=== PATIENT | female | born 1955 | race Caucasian/White ===

== ENCOUNTER 2018-01-07 10:24 | Outpatient (REF) | payer MEDICAID, SELFPAY ==
[2018-01-13 01:07] LABS: Codeine Negative ng/mL (Cutoff: 25); Dihydrocodeine Negative ng/mL (Cutoff: 25); Hydrocodone Negative ng/mL (Cutoff: 25); Hydromorphone 676 ng/mL (Cutoff: 25); Morphine >100000 ng/mL (Cutoff: 25); Naloxone Negative ng/mL (Cutoff: 25); Norhydrocodone Negative ng/mL (Cutoff: 25); Noroxycodone Negative ng/mL (Cutoff: 25); Noroxymorphone Negative ng/mL (Cutoff: 25); Opiates Interpretation Positive.
== END 2018-01-07 10:25 ==
LOC: NCHCN 10:24
PROVIDERS: PCP Family Medicine; Visit Provider Family Medicine
DX: M54.5 Low back pain (principal); G89.29 Other chronic pain
CPT/HCPCS: 80361

== ENCOUNTER 2018-01-09 00:58 | Outpatient (CLI) | payer MEDICAID, SELFPAY ==
[2018-01-09 08:10] LABS: Absolute Basophil Count 0.02 k/cumm (0.0-0.2); Absolute Eosinophil Count 0.09 k/cumm (0.0-0.7); Absolute Lymphocyte Count 1.86 k/cumm (1.2-3.4); Absolute Neutrophil Count 3.13 k/cumm (1.2-6.7); Basophils % 0.4; Eosinophils % 1.6; HCT 38.2 % (36.0-46.0); HGB 13.2 g/dL (12.0-15.5); Lymphocytes % 33.2; Mean Corp. HGB Concentration 34.6 g/dL (32.0-36.0); Mean Corpuscular Hemoglobin 31.7 pg (27.0-33.0); Mean Corpuscular Volume 91.6 fL (80-95); Mean Platelet Volume 10.5 fL (8.0-11.0); Monocytes % 8.9; Neutrophils % 55.9; Platelet Count 229 x1000/uL (130-400); RBC 4.17 m/cumm (4.00-5.20); RBC Distribution Width 12.3 % (11.7-14.6)
--- NOTE | 2018-01-09 08:12 | DI.REPORT_ITS ---
SYMPTOM/DIAGNOSIS: COMPENSATED CIRRHOSIS OF LIVER WITHOUT ASCITES, K74.60, ASSESS FOR HCC ABDOMEN ULTRASOUND: The aorta and vena cava are normal. Hyperechogenicity and mild coarse texture is noted in the liver. There is no evidence of a mass. The gallbladder is normal. There are no stones. There is no ductal dilatation. The head and body of the pancreas are unremarkable. The tail is not seen. The spleen is normal. The right kidney measures 8.8 by 4.4 by 4.8 cm and contains a 1.8 cm. cyst in the upper pole. The left kidney measures 7.9 by 3.8 by 4.5 cm. and is unremarkable. SUMMARY: Hyperechogenicity is noted in the liver which has acoustically coarse texture. There is no demonstrated mass. There is no evidence of gallbladder disease, stones or ductal dilatation.
[2018-01-09 08:16] LABS: Prothrombin Time 10.2 sec (9.3-10.8)
[2018-01-09 09:00] LABS: ALT 14 U/L (12-78); AST 18 U/L (15-37); Alkaline Phosphatase 103 U/L (46-116); Anion Gap 7.6 mmol/L (3-11); BUN 9 mg/dL (7-18); Bilirubin, Total 0.4 mg/dL (0.2-1.0); CO2 28.4 mmol/L (21.0-32.0); CREATININE 0.86 mg/dL (0.55-1.02); Calcium 9.3 mg/dL (8.5-10.1); Chloride 103 mmol/L (98-107); Glucose 109 mg/dL (70-100); Potassium 4.6 mmol/L (3.5-5.1); Sodium 139 mmol/L (136-145); Total Protein 7.8 g/dL (6.4-8.2)
== END 2018-01-09 00:59 ==
PROVIDERS: PCP Family Medicine; Visit Provider Nurse Practitioner Adult Health
DX: K74.60 Unspecified cirrhosis of liver (principal)
CPT/HCPCS: 36415; 80053; 76700; 85025; 85610

== ENCOUNTER 2018-01-25 01:41 | Outpatient (CLI) | payer MEDICAID, SELFPAY ==
[2018-01-25] MEDS: Omnipaque 350 MG/ML 50 ML BTL PO (08:14)
[2018-01-25] MEDS: Omnipaque 350 MG/ML 100 ML BTL IJ (09:28)
--- NOTE | 2018-01-25 09:40 | DI.RPTCT_ITS ---
SYMPTOM/DIAGNOSIS: EPIGASTRIC PAIN, R10.[address]: 01/25 CT examination of the abdomen and pelvis was performed with a bolus infusion of 100 cc Omnipaque 350 and ingestion of dilute barium. Images obtained through the lung bases were unremarkable. The patient reportedly has a history of cirrhosis and the liver has a subtly nodular appearance. No focal hepatic abnormality seen. Pancreas is unremarkable in appearance. Gallbladder and bile ducts are CT normal. Adrenals and kidneys are unremarkable in appearance with small bilateral renal cysts noted. Abdominal aorta is of normal diameter and no major vascular abnormalities seen. No significant abdominal wall hernia seen. No significant abdominal or pelvic adenopathy seen. Appendix is unremarkable. No evidence of diverticulitis or bowel obstruction. CONCLUSION: No evidence of acute intra-abdominal process.
== END 2018-01-25 01:42 ==
PROVIDERS: PCP Family Medicine; Visit Provider Surgery
DX: R10.13 Epigastric pain (principal); K74.60 Unspecified cirrhosis of liver
CPT/HCPCS: 74177; J3490; Q9967

== ENCOUNTER 2018-06-20 00:38 | Outpatient (CLI) | payer MEDICAID, SELFPAY ==
[2018-06-20 14:59] LABS: Mean Corp. HGB Concentration 34.2 g/dL (32.0-36.0); Mean Corpuscular Hemoglobin 31.9 pg (27.0-33.0); Mean Corpuscular Volume 93.1 fL (80-95); Mean Platelet Volume 9.5 fL (8.0-11.0); Platelet Count 291 x1000/uL (130-400); RBC 4.08 m/cumm (4.00-5.20); RBC Distribution Width 12.9 % (11.7-14.6); White Blood Cell Count 7.46 k/cumm (4.4-10.8)
--- NOTE | 2018-06-20 15:36 | DI.MAMMO_ITS ---
SYMPTOM/DIAGNOSIS: SCREENING, Z12.31 MAMMOGRAMS: Mammograms were interpreted according to the usual protocol including computer analysis with CAD system, tomosynthesis and C view imaging. Comparison is made with prior examinations. Breast density, category B. No suspicious masses or microcalcifications are seen. There is an increase in the asymmetric density in the medial right breast seen on the craniocaudad view. This may represent overlying fibroglandular tissue but a spot compression view is requested for further evaluation. Ultrasound may be indicated at that time. IMPRESSION: Additional views of the right breast as described above. Category 0. MQSA ASSESSMENT OF FINDINGS: Incomplete: Needs additional imaging evaluation. Category 0. Patient will receive a letter notifying them of these results. BI-RADS category B. There are scattered areas of fibroglandular density.
[2018-06-20 16:19] LABS: ALT 13 U/L (12-78); AST 16 U/L (15-37); Albumin 3.6 g/dL (3.4-5.0); Alkaline Phosphatase 111 U/L (46-116); Anion Gap 5.9 mmol/L (3-11); BUN 8 mg/dL (7-18); Bilirubin, Total 0.3 mg/dL (0.2-1.0); CO2 31.1 mmol/L (21.0-32.0); CREATININE 0.77 mg/dL (0.55-1.02); Calcium 9.1 mg/dL (8.5-10.1); Chloride 104 mmol/L (98-107); Ferritin 124 ng/mL (8-388); Folate 9.6 ng/mL (8.6-20.0); Glucose 91 mg/dL (70-100); Potassium 4.5 mmol/L (3.5-5.1); Sodium 141 mmol/L (136-145); TSH (W/Ref FT4) 4.89 uIU/mL (0.358-3.74); Total Protein 7.5 g/dL (6.4-8.2)
== END 2018-06-20 00:58 ==
PROVIDERS: PCP Family Medicine; Visit Provider Family Medicine
DX: I10 Essential (primary) hypertension (principal); R11.0 Nausea; E53.8 Deficiency of other specified B group vitamins; R94.6 Abnormal results of thyroid function studies; Z12.31 Encounter for screening mammogram for malignant neoplasm of breast; R92.8 Other abnormal and inconclusive findings on diagnostic imaging of breast
CPT/HCPCS: 36415; 77063; 77067; 80053; 85027; 82728; 82746; 84439; 84443

== ENCOUNTER 2018-06-28 00:19 | Outpatient (CLI) | payer MEDICAID, SELFPAY ==
--- NOTE | 2018-06-28 14:30 | DI.COMBO_ITS ---
SYMPTOM/DIAGNOSIS: DIAGNOSTIC, ASYMMETRIC DENSITY RT BREAST RIGHT BREAST ADDITIONAL VIEWS AND RIGHT BREAST ULTRASOUND: Additional images are interpreted according to the usual protocol including tomosynthesis and 2D imaging. Breast density, category B. Additional views of the right breast fail to show a persistent discrete mass. Right breast ultrasound was performed on the upper inner and lower inner quadrants. No cystic or solid masses are seen sonographically. IMPRESSION: No evidence for malignancy. Yearly mammography is recommended. Category 1. MQSA ASSESSMENT OF FINDINGS: Negative. Category 1. Patient will receive a letter notifying them of these results. BI-RADS category B. There are scattered areas of fibroglandular density. The findings were discussed with the patient on the date of the examination.
== END 2018-06-28 00:39 ==
PROVIDERS: PCP Family Medicine; Visit Provider Family Medicine
DX: Z12.31 Encounter for screening mammogram for malignant neoplasm of breast (principal); R92.8 Other abnormal and inconclusive findings on diagnostic imaging of breast; N64.59 Other signs and symptoms in breast
CPT/HCPCS: 76642; 77063; 77067

== ENCOUNTER 2018-09-06 02:22 | Outpatient (CLI) | payer MEDICAID, SELFPAY ==
--- NOTE | 2018-09-06 07:48 | DI.MRI_ITS ---
SYMPTOM/DIAGNOSIS: CHRONIC LOW BACK PAIN, LT SCIATICA WORSENING, M54.32 LUMBOSACRAL SPINE MRI: The examination is compared with previous examination of 09/10/2015. The previous examination showed bilateral neural foraminal narrowing at L 5-S 1 and left sided neural foraminal narrowing at L 4-5. Moderate disc bulges noted at L 4-5 and L 5-S 1 associated with disc degeneration, the findings involving the neural foramina and L 4-5 and L 5-S 1 discs are unchanged from the previous examination. No significant findings in the upper lumbar spine. Conus medullaris appears intact. Neural foramina and central spinal canal are unremarkable. Moderate hypertrophic degenerative changes of the facet joints seen throughout the lumbar region. CONCLUSION: Stable appearance of degenerative changes since 09/10/15. L 4-5 and L 5-S 1 disc bulges without disc herniations again noted, no change from previous examination. Left sided neural foraminal narrowing at L 4-5 and bilateral neural foraminal narrowing at L 5-S 1, also unchanged from the previous study.
== END 2018-09-06 02:42 ==
PROVIDERS: PCP Family Medicine; Visit Provider Psychiatry & Neurology Neurology
DX: M54.32 Sciatica, left side (principal); M51.17 Intervertebral disc disorders with radiculopathy, lumbosacral region; G89.29 Other chronic pain
CPT/HCPCS: 72148

== ENCOUNTER 2018-10-16 12:40 | Outpatient (CLI) | payer MEDICAID, SELFPAY ==
[2018-10-16 12:52] VITALS: BP 129/69; PULSE 56; RESP 17; TEMP 36; O2SAT 100
[2018-10-16] MEDS: Omnipaque 240 MG/ML 50 ML BTL IJ (13:18)
[2018-10-16] MEDS: Bupivacaine 0.5% Pres-Free 10 ML VIAL IJ (13:29)
--- NOTE | 2018-10-16 13:30 | DI.RAD_ITS ---
SYMPTOM/DIAGNOSIS: LUMBAR RADICULOPATHY C-ARM: Fluoroscopy Time: 31.8 seconds C-arm fluoroscopy was utilized by Dr. Sevilla. Please see the procedure note. Hard copy shows injection at the level of the left L 5-S 1 neural foramen.
[2018-10-16 13:32] VITALS: BP 162/84; PULSE 55; RESP 14; O2SAT 100
[2018-10-16] MEDS: methylPREDNISolone ACETATE 40 MG/ML VIAL IJ (13:40)
--- NOTE | 2018-10-16 13:40 | PDOC.PAIN ---
Pain Clinic Procedure Note Current Active Problems Problem Status Onset Lumbar radiculopathy, chronic Acute Sciatica of left side Chronic LUMBAR / SACRAL TRANSFORAMINAL INJECTION ELENA GILMAN has been [facility] for a transforaminal nerve root block and steroid injection. COMMENTS: The patient has back and left lower extremity pain for many years. I have seen her approximately 4 years ago. She recently had nerve testing which showed a chronic left L5 radiculopathy as well as MRI showing foraminal stenosis at L5-S1 degree at L4 on the left. Patient was interviewed and the medical record reviewed. There were no medical, pharmacologic, radiographic or other structural contraindications to attempting fluoroscopically guided transforaminal nerve root block and epidural steroid injection. Risks and expected side effects as well as potential benefit of the procedure were reviewed and voiced concerns addressed. The printed consent form was signed and witnessed. Standard time-out procedure was performed. Patient was placed in the prone position on the fluoroscopy table and automated blood pressure cuff and pulse oximeter applied. Fluoroscopy was utilized to identify the {left/} neural foramen between L5 and S1 . A skin remington was made for the needle insertion site. A Chlorhexadine prep was carried out, and sterile drapes were applied. Local anesthesia was achieved in the skin and subcutaneous tissues. A 5 22 gauge curved tip spinal needle was then inserted, advanced with fluoroscopic guidance into the neural foramen, confirmed on the lateral view. After negative aspiration, 2 ml of Omnipaque 240 was injected confirming position in A/P and lateral views. This showed a good spread of dye transforaminally into the epidural space. There was no vascular update with contrast injection under continuous fluoroscopy and digital substraction. 40 mg of Depo-Medrol was injected, followed by 0.5 ml of 0.5% bupivacaine flush for the nerve root block, as well. There was no unusual discomfort expressed.The needle was withdrawn. The patient tolerated the procedure well. A Band-Aid was applied. Vital signs were stable throughout the procedure and were as recorded in nursing records. If given, dosages of intravenous drugs for anxiolysis and analgesia were documented in nursing records. Follow up plans and appointments were discussed. Post procedure instruction was given as documented in nursing records and patient was discharged in the care of an identified batch mixing truck driver. COMMENTS: The patient will follow-up as needed. I have given her literature regarding spinal cord stimulation as an option. This injection is not helpful consider trialing for stimulator or neurosurgical evaluation. CC: Alina Santacruz
== END 2018-10-16 13:00 ==
PROVIDERS: PCP Family Medicine; Visit Provider Anesthesiology Pain Medicine
DX: M54.16 Radiculopathy, lumbar region (principal); M54.42 Lumbago with sciatica, left side; G89.29 Other chronic pain
CPT/HCPCS: 64483; 72100; J1030; Q9967

== ENCOUNTER 2019-01-14 09:09 | Outpatient (REF) | payer MEDICAID, SELFPAY ==
[2019-01-20 06:27] LABS: 6-monoacetylmorphine Not Detected ng/mL (Cutoff: 25); Amphetamines Negative ng/mL (Cutoff: 500); Barbiturates Negative ng/mL (Cutoff: 200); Benzodiazepines Negative ng/mL (Cutoff: 100); Buprenorphine Not Detected ng/mL (Cutoff: 5); Cocaine Negative ng/mL (Cutoff: 150); Codeine Not Detected ng/mL (Cutoff: 25); Comment Normal; Creatinine, U 28.4 mg/dL; Dihydrocodeine Not Detected ng/mL (Cutoff: 25); EDDP Not Detected ng/mL (Cutoff: 25); Fentanyl Not Detected ng/mL (Cutoff: 2); Hydrocodone Not Detected ng/mL (Cutoff: 25); Hydromorphone Not Detected ng/mL (Cutoff: 25); Hydromorphone-3-beta-glucuroni Present ng/mL (Cutoff: 100); Meperidine Not Detected ng/mL (Cutoff: 25); Methadone Not Detected ng/mL (Cutoff: 25); Morphine Present ng/mL (Cutoff: 25); N-desmethyltapentadol Not Detected ng/mL (Cutoff: 50); Naloxone Not Detected ng/mL (Cutoff: 25); Norbuprenorphine Not Detected ng/mL (Cutoff: 5); Norfentanyl Not Detected ng/mL (Cutoff: 2); Norhydrocodone Not Detected ng/mL (Cutoff: 25); Normeperidine Not Detected ng/mL (Cutoff: 25); Noroxycodone Not Detected ng/mL (Cutoff: 25); Noroxymorphone Not Detected ng/mL (Cutoff: 25); O-desmethyltramadol Not Detected ng/mL (Cutoff: 25); Phencyclidine Negative ng/mL (Cutoff: 25); Propoxyphene Not Detected ng/mL (Cutoff: 25); Specific Gravity 1.004; Tapentadol Not Detected ng/mL (Cutoff: 25); Tetrahydrocannabinol Presumptive Positive ng/mL (Cutoff: 50); Tramadol Not Detected ng/mL (Cutoff: 25); pH 5.9
[2019-01-20 08:46] LABS: Carboxy-THC Interpretation Positive.; Delta-9 CarboxyThc by LC-MS/MS 278 ng/mL (Cutoff:<3)
== END 2019-01-14 09:29 ==
LOC: LBN 09:09
PROVIDERS: PCP Family Medicine; Visit Provider Nurse Practitioner Family
DX: G89.29 Other chronic pain (principal); M54.5 Low back pain; Z79.899 Other long term (current) drug therapy
CPT/HCPCS: 80307; 80349; 80364

== ENCOUNTER 2019-01-19 03:08 | Outpatient (CLI) | payer MEDICAID, SELFPAY ==
[2019-01-19 10:22] LABS: Anion Gap 8.2 mmol/L (3-11); BUN 12 mg/dL (7-18); CO2 28.8 mmol/L (21.0-32.0); CREATININE 0.95 mg/dL (0.55-1.02); Calcium 9.3 mg/dL (8.5-10.1); Chloride 104 mmol/L (98-107); Glucose 129 mg/dL (70-100); Potassium 4.3 mmol/L (3.5-5.1); Sodium 141 mmol/L (136-145)
== END 2019-01-19 03:28 ==
PROVIDERS: PCP Family Medicine; Visit Provider Family Medicine
DX: I10 Essential (primary) hypertension (principal)
CPT/HCPCS: 36415; 80048

== ENCOUNTER 2019-01-23 01:11 | Outpatient (CLI) | payer MEDICAID, SELFPAY ==
--- NOTE | 2019-01-23 10:12 | DI.RAD_ITS ---
SYMPTOM/DIAGNOSIS: FORAMINAL STENOSIS m99.83 PRE OP LUMBAR SPINE: AP lateral and flexion, and extension views were obtained. There are 5 lumbar type vertebral bodies. There is a left convex lower thoracic and upper lumbar scoliotic curvature There is disc space narrowing in vacuum disc at L5-S1. There are end plate osteophytes throughout the lumbar spine. Degenerative changes of the facets are seen particularly from L3-4 through L5- S1. No subluxations are seen with flexion or extension. There is calcification of the abdominal aorta noted. IMPRESSION: Moderate degenerative changes in the lumbar spine.
== END 2019-01-23 01:31 ==
PROVIDERS: PCP Family Medicine; Visit Provider Orthopaedic Surgery Orthopaedic Surgery of the Spine
DX: M99.83 Other biomechanical lesions of lumbar region (principal); M51.37 Other intervertebral disc degeneration, lumbosacral region; M47.817 Spondylosis without myelopathy or radiculopathy, lumbosacral region
CPT/HCPCS: 72100

== ENCOUNTER 2019-10-13 14:16 | Inpatient (IN) | payer MEDICAID, SELFPAY ==
[2019-10-13 14:22] VITALS: BP 155/90; PULSE 96; RESP 20; TEMP 36.8; O2SAT 98
[2019-10-13] MEDS: Normal Saline 500 ML IV (14:40)
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
[2019-10-13] MEDS: Normal Saline - Diluent 50 ML VIAL IV (15:07)
[2019-10-13 15:08] LABS: Abs Immature Grans 0.02 k/cumm (0.0-0.09); Absolute Basophil Count 0.02 k/cumm (0.0-0.2); Absolute Lymphocyte Count 3.19 k/cumm (1.2-3.4); Absolute Monocyte Count 0.82 k/cumm (0.11-0.7); Basophils % 0.2; Eosinophils % 1.2; HCT 37.5 % (36.0-46.0); HGB 13.5 g/dL (12.0-15.5); Immature Grans % 0.2 %; Lymphocytes % 36.9; Mean Corpuscular Hemoglobin 32.2 pg (27.0-33.0); Mean Corpuscular Volume 89.5 fL (80-95); Monocytes % 9.5; Platelet Count 262 x1000/uL (130-400); RBC 4.19 m/cumm (4.00-5.20); RBC Distribution Width 12.6 % (11.7-14.6); White Blood Cell Count 8.65 k/cumm (4.4-10.8)
[2019-10-13] MEDS: Omnipaque 350 MG/ML 100 ML BTL IJ (15:08)
--- NOTE | 2019-10-13 15:08 | DI.CT_ITS ---
EXAM: CT THORAX ABD/PEL CTA TECHNIQUE: CT angiography of the chest, abdomen and pelvis was performed with bolus infusion of 125 cc of Omnipaque 350. Axial CT angiography was performed with multi-slice acquisition and multi-planar and/or 3D reconstruc tions. COMPARISON: CT ABD PELVIS WITH CONTRAST from 01/25/2018 FINDINGS: The lungs are clear except for mild emphysematous changes and peripheral reticular presumably chroni c radiodensities, no follow up recommended in a low risk individual. No pleural effusion. No evidence of pulmonary embolic disease. No thoracic aortic dissection. No aortic aneurysm. No pleural effusi on. No mediastinal or hilar adenopathy. Tracheobronchial tree appears intact. 2.6 cm right renal cyst noted. No other renal abnormality. No urinary tract calcification or obstru ction.. Gallbladder and bile ducts are CT normal. Pancreas is unremarkable. Spleen shows unremarkabl e early arterial phase pattern of enhancement. Unremarkable appearance of the liver. No abdominal aortic aneurysm or dissection. Major branches of the abdominal aorta appear normal. No a bdominal or pelvic adenopathy. Normal appendix. No significant abdominal wall hernia. No focal bowel pathology. IMPRESSION: No evidence of acute vascular abnormality of the chest, abdomen or pelvis. No other abnormalities are seen. RADIATION DOSE DELIVERED: Total DLP DATA REPOSITORY: All CT scans at this facility are submitted to the National Radiology Data Registry (NRDR) Dose Index Registry (DIR) with the [employer] (ACR). RADIATION OPTIMIZATION: All CT scans at this facility use at least one of these dose optimization te chniques: automated exposure control; mA and/or kV adjustment per patient size (includes targeted exa ms where dose is matched to clinical indication); or iterative reconstruction.
[2019-10-13 15:20] LABS: ALT 20 U/L (14-59); AST 23 U/L (15-37); Albumin 3.7 g/dL (3.4-5.0); Alkaline Phosphatase 79 U/L (46-116); Anion Gap 5.6 mmol/L (3-11); BUN 9 mg/dL (7-18); Bilirubin, Total 0.6 mg/dL (0.2-1.0); CO2 32.4 mmol/L (21.0-32.0); CREATININE 0.76 mg/dL (0.55-1.02); Calcium 8.8 mg/dL (8.5-10.1); Chloride 103 mmol/L (98-107); Glucose 97 mg/dL (74-106); Lipase 34 U/L (73-393); Potassium 3.2 mmol/L (3.5-5.1); Sodium 141 mmol/L (136-145); Total Protein 7.6 g/dL (6.4-8.2)
[2019-10-13 15:41] LABS: INR 1.1 (0.9-1.1)
[2019-10-13 16:26] LABS: Bilirubin Negative (Negative); Blood Trace-intact (Negative); Clarity Clear (Clear); Glucose Negative (Negative); Ketones Negative (Negative); Leukocyte Esterase Negative (Negative); Nitrite Negative (Negative); Specific Gravity 1.015 (1.005-1.025); pH 8.5 (5-8)
[2019-10-13 16:39] LABS: RBC 0-2 HPF (0-2)
[2019-10-13 16:40] LABS: Bacteria Negative HPF (Negative); C & S Indicated? No; Casts Negative LPF (Negative); Crystals Negative HPF (Negative); Epithelial Cells Moderate HPF (Negative); Mucus Negative (Negative)
[2019-10-13 18:21] VITALS: BP 155/90; PULSE 79; RESP 20; TEMP 36.1; O2SAT 96
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
[2019-10-13] MEDS: HYDROmorphone 2 MG/ML VIAL 0.5 MG IVP (19:27)
[2019-10-13 19:59] VITALS: BP 152/82; PULSE 74; RESP 17; TEMP 36.7; O2SAT 97
[2019-10-13] MEDS: Pregabalin 50 MG CAP 150 MG PO (21:42)
[2019-10-13] MEDS: Enoxaparin 40 MG/0.4 ML SYR SC (21:43)
[2019-10-13] MEDS: Normal Saline Flush 10 ML SYR (21:50)
[2019-10-13] MEDS: POTASSIUM CHLORIDE/0.9% NACL 1,000 ML 100 MEQ IV (21:51)
[2019-10-13] MEDS: LORazepam 1 MG TAB PO (22:00)
[2019-10-13 23:09] VITALS: BP 139/79; PULSE 69; RESP 18; TEMP 36.4; O2SAT 96
--- NOTE | 2019-10-14 | DI.MRI_ITS ---
EXAM: MR LUMBAR SPINE WO CLINICAL HISTORY: R-sided back pain. TECHNIQUE: Multiplanar multisequence MRI was performed. COMPARISON: MR MR lumbar spine wo from 09/06/2018 FINDINGS: MR examination of the lumbar spine was performed according to the usual protocol without contrast adm inistration. Note is made of a simple cyst of the right kidney measuring up to about 3 cm in diamete r. 9 millimeter left renal cyst noted as well. There is a mild left convex lumbar scoliosis. The conus medullaris appears intact. No significant b martita signal abnormality seen. There are moderate facet hypertrophic changes at L3-4 L4-5 and L5-S1. Mild facet hypertrophic change s L1-2 and L2-3. No significant disc findings at T11-12, T12-L1, or L1-2. At L2-3 there is a mild disc bulge. No central canal spinal stenosis or neural foraminal stenosis. At L3-4, there is a mild disc bulge. No central canal spinal stenosis or neural foraminal stenosis. At L4-5 there is a moderate disc bulge without disc herniation. No central canal spinal stenosis. M ild left neural foraminal stenosis. At L5-S1 there is a moderate disc bulge with mild superimposed central disc herniation. No gross kaity ral impingement. Mild bilateral neural foraminal narrowing. No central canal spinal stenosis. IMPRESSION: Degenerative changes and multilevel disc bulges as described above. Mild neural foraminal narrowing on the left at L 4 5 and bilaterally at L5-S1. Prominent disc bulge at L5-S1 with probable mild superimposed central disc herniation and no specific evidence of impingement. DATA REPOSITORY:
--- NOTE | 2019-10-14 | DI.US_ITS ---
EXAM: US ABDOMEN CLINICAL HISTORY: RUQ pain TECHNIQUE: Ultrasound performed using standard protocol. COMPARISON: US US breast RT limited from 06/28/[address] THORAX ABD/PEL CTA from 10/13/2019 FINDINGS: Hepatic parenchyma may be mildly echogenic, no focal hepatic lesion identified. No evidence of lucho lithiasis or gallbladder wall thickening. No biliary dilatation. Pancreas is unremarkable in appear ance as visualized. Spleen appears normal. The kidneys are unremarkable in appearance with an incidental simple cyst of the right kidney as note d on yesterday's CT. No evidence of hydronephrosis. Abdominal aorta and IVC are of normal diameter. IMPRESSION: Negative abdominal ultrasound except for question mild hepatic steatosis. No evidence cholelithiasis or cholecystitis. DATA REPOSITORY:
--- NOTE | 2019-10-14 | DI.MRI_ITS ---
EXAM: MR THORACIC SPINE WO CLINICAL HISTORY: R-sided back pain. TECHNIQUE: Multiplanar multisequence MRI was performed. COMPARISON: MR MRI - THORACIC SPINE WO CONT from 02/10/2014 MR MR LUMBAR SPINE WO from 10/14/2019 FINDINGS: MR examination of thoracic spine was performed without contrast administration. No significant focal bony signal abnormality seen. The spinal cord shows normal signal throughout and is of normal diame ter. T7-T8, there is a small right paracentral disc herniation which causes mild effacement of the anterio r cord surface to the right of midline. At T9-T10, there is a minimal right paracentral disc herniation without impingement. No other significant disc abnormality seen. No gross neural foraminal narrowing or central canal sp inal stenosis. IMPRESSION: Small right paracentral disc herniation at T7-T8, mild adjacent cord deformity without signal abnorma lity in the cord. DATA REPOSITORY:
[2019-10-14] MEDS: Normal Saline Flush 10 ML SYR IVP ×7 (02:48→23:28)
[2019-10-14 02:55] VITALS: BP 161/91; PULSE 73; RESP 18; TEMP 37; O2SAT 96
[2019-10-14] MEDS: LORazepam 1 MG TAB PO ×2 (03:36→09:23)
[2019-10-14 06:28] LABS: Anion Gap 7.8 mmol/L (3-11); CO2 27.2 mmol/L (21.0-32.0); Chloride 107 mmol/L (98-107); Potassium 3.7 mmol/L (3.5-5.1); Sodium 142 mmol/L (136-145)
[2019-10-14 07:04] VITALS: BP 141/88; PULSE 72; RESP 17; TEMP 36.1; O2SAT 96
[2019-10-14] MEDS: POTASSIUM CHLORIDE/0.9% NACL 1,000 ML 100 MEQ IV (07:27)
[2019-10-14 08:14] LABS: Abs Immature Grans 0.01 k/cumm (0.0-0.09); Absolute Basophil Count 0.02 k/cumm (0.0-0.2); Absolute Lymphocyte Count 2.87 k/cumm (1.2-3.4); Absolute Neutrophil Count 1.88 k/cumm (1.2-6.7); Basophils % 0.4; Eosinophils % 1.8; HCT 33.7 % (36.0-46.0); HGB 11.6 g/dL (12.0-15.5); Immature Grans % 0.2 %; Lymphocytes % 51.4; Mean Corp. HGB Concentration 34.4 g/dL (32.0-36.0); Mean Corpuscular Hemoglobin 31.4 pg (27.0-33.0); Mean Corpuscular Volume 91.3 fL (80-95); Mean Platelet Volume 11.3 fL (8.0-11.0); Monocytes % 12.5; Neutrophils % 33.7; Platelet Count 208 x1000/uL (130-400); RBC 3.69 m/cumm (4.00-5.20); RBC Distribution Width 12.8 % (11.7-14.6); White Blood Cell Count 5.58 k/cumm (4.4-10.8)
[2019-10-14 08:27] LABS: ALT 18 U/L (14-59); AST 20 U/L (15-37); Albumin 3.3 g/dL (3.4-5.0); Alkaline Phosphatase 70 U/L (46-116); Anion Gap 7.7 mmol/L (3-11); BUN 6 mg/dL (7-18); Bilirubin, Direct 0.11 mg/dL (0.00-0.20); Bilirubin, Total 0.5 mg/dL (0.2-1.0); C-Reactive Protein 0.11 mg/dL (0.0-0.3); CO2 27.3 mmol/L (21.0-32.0); Calcium 8.1 mg/dL (8.5-10.1); Chloride 107 mmol/L (98-107); Glucose 86 mg/dL (74-106); Magnesium 1.8 mg/dL (1.8-2.4); Potassium 3.7 mmol/L (3.5-5.1); Sodium 142 mmol/L (136-145); Total Protein 6.4 g/dL (6.4-8.2)
[2019-10-14] MEDS: Pantoprazole 40 MG VIAL IVP (08:51)
[2019-10-14] MEDS: Atenolol 50 MG TAB 100 MG PO (09:22)
[2019-10-14] MEDS: DULoxetine 30 MG CAP 60 MG PO (09:23)
[2019-10-14] MEDS: Pregabalin 50 MG CAP 150 MG PO ×3 (09:23→20:30)
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
[2019-10-14 11:13] VITALS: BP 146/77; PULSE 59; RESP 17; TEMP 35.3; O2SAT 97
--- NOTE | 2019-10-14 12:17 | PHA.REVIEW ---
Pharmacy Admission Review - Admission Clinical Review (Last Reviewed 10/13/19 @ 18:28 by Rangel Llanos MD) Abdominal pain (Acute) penicillin V [Penicillin V] Allergy (Unknown, Unverified 10/13/19 14:26) adhesive Adverse Reaction (Unverified 10/13/19 14:26) Skin Rash milk Adverse Reaction (Unverified 10/13/19 14:26) Height 5 ft 4 in Weight 63 kg - Renal Dosing Renal Dosing: BUN 6 mg/dL (7-18) L 10/14/19 06:10 Creatinine 0.60 mg/dL (0.55-1.02) 10/14/19 06:10 Medications needing adjustments: Reviewed (crcl ~63ml/min) - Anticoagulation Anticoagulation: Hgb 11.6 g/dL (12.0-15.5) L 10/14/19 06:10 Hct 33.7 % (36.0-46.0) L 10/14/19 06:10 Plt Count 208 x1000/uL (130-400) 10/14/19 06:10 INR 1.1 (0.9-1.1) 10/13/19 15:25 Creatinine 0.60 mg/dL (0.55-1.02) 10/14/19 06:10 DVT Prohphylaxis: Reviewed Medications: Enoxaparin - Opiate Usage Scheduled Bowel Reg ordered if on Opiates?: No (last BM noted 10/13/19) - Relevant Labs Sodium 142 mmol/L (136-145) 10/14/19 06:10 Sodium 142 mmol/L (136-145) 10/14/19 06:10 Potassium 3.7 mmol/L (3.5-5.1) 10/14/19 06:10 Potassium 3.7 mmol/L (3.5-5.1) 10/14/19 06:10 Chloride 107 mmol/L (98-107) 10/14/19 06:10 Chloride 107 mmol/L (98-107) 10/14/19 06:10 Magnesium 1.8 mg/dL (1.8-2.4) 10/14/19 06:10 C-Reactive Protein 0.11 mg/dL (0.0-0.3) 10/14/19 06:10 Electrolytes, C-Reactive P, ESR: Reviewed - DM Control DM Control: Glucose 86 mg/dL (74-106) 10/14/19 06:10 Insulin Dosing: N/A - BP Control BP Control: Blood Pressure 146/77 Blood Pressure 141/88 Blood Pressure 161/91 If elevated: Reviewed (atenolol ordered, lisinopril not ordered) - Qtc Review If Elevated: Reviewed (452. ondansetron, promethazine, pantoprazole) - Home Meds Home Med List reviewed: Reviewed Relevent Home Meds Not ordered & why?: fluticasone, lisinopril, salmeterol inh, tiotropium inh, triamcinolone, hydrocortisone topical, folic acid, furosemide. expect most to be orderd when hospitalist does their rounds - Current meds Current Medication Order Review: Reviewed
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
--- NOTE | 2019-10-14 12:47 | PGE_ITS ---
Date of Service Date of service: 10/14/19 Time of Service: 12:48 Assessment and Plan Assessment and plan (1) Abdominal pain, right upper quadrant: Status: Acute Assessment and plan: Intraabdominal etiologies have been ruled out with CT/US. Based on physical exam and general surgery opinion, the majority of the pain is really in the back - MSK etiology is most likely, and muscle spasm given h/o chronic back pain is likely. Will trial scheduled NSAIDS, flexeril, prn valium, lidocaine patch. Last lumbar spine XR/MRI done in 2019. We will obtain MRI thoracolumbar spine. Check Vitamin D and B12 levels (2) HTN (hypertension): Status: Chronic Assessment and plan: No change in tx (3) Vitamin D deficiency: Status: Acute Assessment and plan: Check level (4) Vitamin B12 deficiency: Status: Acute Assessment and plan: check level (5) DVT prophylaxis: Status: Acute Assessment and plan: lovenox (6) Discharge planning issues: Status: Acute Assessment and plan: full code Subjective Subjective Interval history since last seen: Complains of pain under her R ribs as well as back pain, which is reproducible with palpation. Has chronic back pain, but this is worse. Kidney stone pain did not feel like this. Denies dizziness, chest pain, shortness of breath, nausea. She is anxious and tired and wants the pain to go away. Seen by general surgery - not felt to be an abdominal problem - abdominal exam was essentially benign. Exam Narrative Exam Narrative: General: tearful anxious middle-aged female, A&OX3, uncomfortable HEENT: EOMI,MMM Heart: RRR, no m/r/g Lungs: CTAB Abdomen: soft, ?tender in RUQ - appears to be more tender in the back/R flank Extremities: no e/c/c BLE's Objective Objective Clinical Data: Abnormal lab results 10/13/19 10/13/19 10/13/19 Range/Units 14:40 14:40 16:10 RBC (4.00-5.20) m/cumm Hgb (12.0-15.5) g/dL Hct (36.0-46.0) % MPV (8.0-11.0) fL Absolute Monocytes 0.82 H (0.11-0.7) k/cumm Potassium 3.2 L (3.5-5.1) mmol/L Carbon Dioxide 32.4 H (21.0-32.0) mmol/L BUN (7-18) mg/dL Calcium (8.5-10.1) mg/dL Albumin (3.4-5.0) g/dL Urine pH 8.5 H (5-8) Urine Blood Trace-intact H (Negative) Urine Urobilinogen 1.0 H (Up TO 0.2) EU/dL 10/14/19 10/14/19 Range/Units 06:10 06:10 RBC 3.69 L (4.00-5.20) m/cumm Hgb 11.6 L (12.0-15.5) g/dL Hct 33.7 L (36.0-46.0) % MPV 11.3 H (8.0-11.0) fL Absolute Monocytes (0.11-0.7) k/cumm Potassium (3.5-5.1) mmol/L Carbon Dioxide (21.0-32.0) mmol/L BUN 6 L (7-18) mg/dL Calcium 8.1 L (8.5-10.1) mg/dL Albumin 3.3 L (3.4-5.0) g/dL Urine pH (5-8) Urine Blood (Negative) Urine Urobilinogen (Up TO 0.2) EU/dL Vital Signs Temperature 35.3 C L 10/14/19 11:13 Temperature Source Temporal Artery Scan 10/14/19 11:13 Pulse 59 L 10/14/19 11:13 Pulse Rhythm Regular 10/14/19 07:30 Respiratory Rate 17 10/14/19 11:13 Respiratory Effort Non-Labored 10/14/19 07:30 Respiratory Depth Normal 10/14/19 07:30 Respiratory Pattern Normal 10/14/19 07:30 Blood Pressure 146/77 H 10/14/19 11:13 Blood Pressure Position Sitting 10/13/19 14:22 Pulse Oximetry 97 10/14/19 11:13 Oxygen Delivery Method Room Air 10/14/19 11:13 Oxygen Flow Rate 0 10/14/19 11:13 Pain Level 7 10/14/19 11:13 Comment 10/14/19 02:55 Intake & Output 10/13/19 10/14/19 10/14/19 23:59 11:59 23:59 Intake Total 500 / 500 960 / 960 Balance 500 / 500 960 / 960 Weight 63 kg Intake: IV 500 / 500 960 / 960 Other: Comment pt voiding independently. Laboratory Results WBC 5.58 k/cumm (4.4-10.8) D 10/14/19 06:10 RBC 3.69 m/cumm (4.00-5.20) L 10/14/19 06:10 Hgb 11.6 g/dL (12.0-15.5) L 10/14/19 06:10 Hct 33.7 % (36.0-46.0) L 10/14/19 06:10 MCV 91.3 fL (80-95) 10/14/19 06:10 MCH 31.4 pg (27.0-33.0) 10/14/19 06:10 MCHC 34.4 g/dL (32.0-36.0) 10/14/19 06:10 RDW 12.8 % (11.7-14.6) 10/14/19 06:10 Plt Count 208 x1000/uL (130-400) 10/14/19 06:10 MPV 11.3 fL (8.0-11.0) H 10/14/19 06:10 Immature Gran % 0.2 % 10/14/19 06:10 Neutrophils % 33.7 10/14/19 06:10 Lymphocytes % 51.4 10/14/19 06:10 Monocytes % 12.5 10/14/19 06:10 Eosinophils % 1.8 10/14/19 06:10 Basophils % 0.4 10/14/19 06:10 Absolute Neutrophils 1.88 k/cumm (1.2-6.7) 10/14/19 06:10 Absolute Lymphocytes 2.87 k/cumm (1.2-3.4) 10/14/19 06:10 Absolute Monocytes 0.70 k/cumm (0.11-0.7) 10/14/19 06:10 Absolute Eosinophils 0.10 k/cumm (0.0-0.7) 10/14/19 06:10 Absolute Basophils 0.02 k/cumm (0.0-0.2) 10/14/19 06:10 PT 11.0 sec (9.3-11.0) 10/13/19 15:25 INR 1.1 (0.9-1.1) 10/13/19 15:25 Sodium 142 mmol/L (136-145) 10/14/19 06:10 Sodium 142 mmol/L (136-145) 10/14/19 06:10 Potassium 3.7 mmol/L (3.5-5.1) 10/14/19 06:10 Potassium 3.7 mmol/L (3.5-5.1) 10/14/19 06:10 Chloride 107 mmol/L (98-107) 10/14/19 06:10 Chloride 107 mmol/L (98-107) 10/14/19 06:10 Carbon Dioxide 27.2 mmol/L (21.0-32.0) 10/14/19 06:10 Carbon Dioxide 27.3 mmol/L (21.0-32.0) 10/14/19 06:10 Anion Gap 7.7 mmol/L (3-11) 10/14/19 06:10 Anion Gap 7.8 mmol/L (3-11) 10/14/19 06:10 BUN 6 mg/dL (7-18) L 10/14/19 06:10 Creatinine 0.60 mg/dL (0.55-1.02) 10/14/19 06:10 Estimated GFR/1.73 m2 >= 60.00 (mL/min/1.73m2) 10/14/19 06:10 Glucose 86 mg/dL (74-106) 10/14/19 06:10 Calcium 8.1 mg/dL (8.5-10.1) L 10/14/19 06:10 Magnesium 1.8 mg/dL (1.8-2.4) 10/14/19 06:10 Total Bilirubin 0.5 mg/dL (0.2-1.0) 10/14/19 06:10 Conjugated Bilirubin 0.11 mg/dL (0.00-0.20) 10/14/19 06:10 AST 20 U/L (15-37) 10/14/19 06:10 ALT 18 U/L (14-59) 10/14/19 06:10 Alkaline Phosphatase 70 U/L (46-116) 10/14/19 06:10 C-Reactive Protein 0.11 mg/dL (0.0-0.3) 10/14/19 06:10 Total Protein 6.4 g/dL (6.4-8.2) 10/14/19 06:10 Albumin 3.3 g/dL (3.4-5.0) L 10/14/19 06:10 Lipase 34 U/L (73-393) 10/13/19 14:40 Urine Color Yellow (Yellow) 10/13/19 16:10 Urine Clarity Clear (Clear) 10/13/19 16:10 Urine pH 8.5 (5-8) H 10/13/19 16:10 Ur Specific [place] 1.015 (1.005-1.025) 10/13/19 16:10 Urine Protein Negative mg/dL (Negative) 10/13/19 16:10 Urine Ketones Negative mg/dL (Negative) 10/13/19 16:10 Urine Blood Trace-intact (Negative) H 10/13/19 16:10 Urine Nitrite Negative (Negative) 10/13/19 16:10 Urine Bilirubin Negative (Negative) 10/13/19 16:10 Urine Urobilinogen 1.0 EU/dL (Up TO 0.2) H 10/13/19 16:10 Ur Leukocyte Esterase Negative (Negative) 10/13/19 16:10 Urine RBC 0-2 HPF (0-2) 10/13/19 16:10 Urine WBC 3-5 HPF (0-5) 10/13/19 16:10 Ur Epithelial Cells Moderate HPF (Negative) 10/13/19 16:10 Urine Crystals Negative HPF (Negative) 10/13/19 16:10 Urine Bacteria Negative HPF (Negative) 10/13/19 16:10 Urine Casts Negative LPF (Negative) 10/13/19 16:10 Urine Mucus Negative (Negative) 10/13/19 16:10 Ur Culture Indicated? No 10/13/19 16:10 Urine Glucose Negative mg/dL (Negative) 10/13/19 16:10
[2019-10-14] MEDS: Ketorolac 15 MG/ML VIAL IVP ×3 (13:08→23:27)
[2019-10-14] MEDS: Cyclobenzaprine 10 MG TAB PO ×2 (13:09→18:48)
[2019-10-14 15:04] VITALS: BP 127/67; PULSE 66; RESP 20; TEMP 35.9; O2SAT 96
[2019-10-14] MEDS: LORazepam 2 MG/ML VIAL 1 MG IVP (15:50)
--- NOTE | 2019-10-14 17:59 | DI.VRAD_ITS ---
PROCEDURE INFORMATION: Exam: MR Lumbar Spine Without Contrast. Exam date and time: 10/14/2019 5:41 PM Age: 64 years old Clinical indication: Other: RT sided back pain; Additional info: Technically limited due to patient tolerance TECHNIQUE: Imaging protocol: Multiplanar magnetic resonance images of the lumbar spine without intravenous contrast. COMPARISON: No relevant prior studies available. FINDINGS: Vertebrae: Unremarkable. Spinal cord: Normal signal. No cord compression. L1-L2: No significant disc disease. No significant spinal canal stenosis. No neural foraminal stenosis. L2-L3: No significant disc disease. No significant spinal canal stenosis. No neural foraminal stenosis. L3-L4: Mild diffuse disc bulge at L3-L4, with no significant central or foraminal stenosis. L4-L5: Moderate diffuse disc bulge at L4-L5, with moderate left foraminal stenosis. L5-S1: Diffuse disc bulge at L5-S1 level, with moderate to severe bilateral foraminal narrowing. Kidneys and ureters: 27 mm simple cyst in right kidney. Soft tissues: Unremarkable. IMPRESSION: Degenerative changes without acute abnormality. Dictated and Authenticated by: Bev Ervin MD. Ordering:JAZZ Workman MD
--- NOTE | 2019-10-14 18:19 | DI.VRAD_ITS ---
PROCEDURE INFORMATION: Exam: MR Thoracic Spine Without Contrast Exam date and time: 10/14/2019 5:28 PM Age: 64 years old Clinical indication: Other: RT sided back pain; Additional info: Technically limited due to patient tolerance TECHNIQUE: Imaging protocol: Multiplanar magnetic resonance images of the thoracic spine without intravenous contrast. COMPARISON: MRI - THORACIC SPINE WO CONT 02/10/2014 2:09 PM FINDINGS: Vertebrae: Mild dextrocurvature of the thoracic spine. No acute fracture or dislocation. Spinal cord: Normal signal. No cord compression. T1-T2: No significant disc disease. No significant spinal canal stenosis. T2-T3: No significant disc disease. No significant spinal canal stenosis. T3-T4: No significant disc disease. No significant spinal canal stenosis. T4-T5: No significant disc disease. No significant spinal canal stenosis. T5-T6: No significant disc disease. No significant spinal canal stenosis. T6-T7: No significant disc disease. No significant spinal canal stenosis. T7-T8: Small disc bulge. No significant spinal canal stenosis. T8-T9: No significant disc disease. No significant spinal canal stenosis. T9-T10: Small disc bulge. No significant spinal canal stenosis. T10-T11: No significant disc disease. No significant spinal canal stenosis. T11-T12: No significant disc disease. No significant spinal canal stenosis. Soft tissues: Unremarkable. 3.3 cm benign-appearing cyst in the right kidney. No hydronephrosis. IMPRESSION: No acute abnormality. Mild degenerative disc bulging as described. Dictated and Authenticated by: Bev Ervin MD. Ordering:JAZZ Workman MD
[2019-10-14 19:48] VITALS: BP 121/77; PULSE 66; RESP 19; TEMP 36.9; O2SAT 95
[2019-10-14] MEDS: Lidocaine 5% Patch 1 PATCH TP (20:30)
[2019-10-14] MEDS: Enoxaparin 40 MG/0.4 ML SYR SC (20:31)
[2019-10-14 22:39] LABS: COVID-19 RT-PCR UVMMC Result Negative (Negative)
[2019-10-15] MEDS: Normal Saline Flush 10 ML SYR IVP ×3 (01:27→10:16)
[2019-10-15] MEDS: LORazepam 1 MG TAB PO ×2 (03:19→12:17)
[2019-10-15] MEDS: Cyclobenzaprine 10 MG TAB PO ×3 (03:19→19:49)
[2019-10-15 03:41] VITALS: BP 136/79; PULSE 64; RESP 19; TEMP 36.6; O2SAT 97
[2019-10-15] MEDS: Ketorolac 15 MG/ML VIAL IVP (05:25)
[2019-10-15 06:47] LABS: Abs Immature Grans 0.01 k/cumm (0.0-0.09); Absolute Basophil Count 0.02 k/cumm (0.0-0.2); Absolute Eosinophil Count 0.14 k/cumm (0.0-0.7); Absolute Lymphocyte Count 3.07 k/cumm (1.2-3.4); Absolute Monocyte Count 0.67 k/cumm (0.11-0.7); Absolute Neutrophil Count 1.76 k/cumm (1.2-6.7); Basophils % 0.4; Eosinophils % 2.5; HCT 34.6 % (36.0-46.0); HGB 11.7 g/dL (12.0-15.5); Immature Grans % 0.2 %; Lymphocytes % 54.1; Mean Corp. HGB Concentration 33.8 g/dL (32.0-36.0); Mean Corpuscular Hemoglobin 31.3 pg (27.0-33.0); Mean Corpuscular Volume 92.5 fL (80-95); Mean Platelet Volume 10.9 fL (8.0-11.0); Monocytes % 11.8; Platelet Count 198 x1000/uL (130-400); RBC 3.74 m/cumm (4.00-5.20); RBC Distribution Width 12.8 % (11.7-14.6); White Blood Cell Count 5.67 k/cumm (4.4-10.8)
[2019-10-15 06:58] LABS: ALT 19 U/L (14-59); AST 26 U/L (15-37); Albumin 3.4 g/dL (3.4-5.0); Alkaline Phosphatase 68 U/L (46-116); Anion Gap 4.2 mmol/L (3-11); BUN 11 mg/dL (7-18); Bilirubin, Direct 0.11 mg/dL (0.00-0.20); Bilirubin, Total 0.5 mg/dL (0.2-1.0); CO2 29.8 mmol/L (21.0-32.0); CREATININE 0.81 mg/dL (0.55-1.02); Calcium 8.4 mg/dL (8.5-10.1); Chloride 103 mmol/L (98-107); Glucose 82 mg/dL (74-106); Magnesium 1.9 mg/dL (1.8-2.4); Potassium 4.1 mmol/L (3.5-5.1); Sodium 137 mmol/L (136-145); Total Protein 6.9 g/dL (6.4-8.2)
[2019-10-15 07:28] VITALS: BP 150/81; PULSE 62; RESP 18; TEMP 36.8; O2SAT 96
[2019-10-15 07:32] LABS: Vitamin B12 315 pg/mL (193-986)
[2019-10-15] MEDS: Pantoprazole 40 MG VIAL IVP (07:39)
[2019-10-15] MEDS: DULoxetine 30 MG CAP 60 MG PO (07:40)
[2019-10-15] MEDS: Pregabalin 50 MG CAP 150 MG PO ×3 (07:40→19:50)
[2019-10-15] MEDS: diazePAM 2 MG TAB PO ×2 (07:40→23:52)
[2019-10-15] MEDS: Atenolol 50 MG TAB 100 MG PO (07:40)
[2019-10-15] MEDS: LIDOCAINE Patch Removal 1 EACH TP (07:41)
[2019-10-15] MEDS: Cyanocobalamin 1000 MCG/ML VIAL IM/SC (11:08)
[2019-10-15] MEDS: Ibuprofen 600 MG TAB PO ×3 (11:09→19:49)
[2019-10-15 11:10] VITALS: BP 150/72; PULSE 59; RESP 17; TEMP 36.9; O2SAT 96
[2019-10-15] MEDS: oxyCODONE 10 MG TAB PO ×2 (12:12→23:52)
--- NOTE | 2019-10-15 12:37 | PDOC.CMPRO ---
- If Service Date Differs Date of service: 10/15/19 Time of Service: 12:37 Care Management Progress Note S/O: Danielle was sitting up in bed when CM met with her. She stated that her pain was much better than yesterday and that she was doing pretty well this morning. She did state that she has not slept in several days and is very tired. She received morphine, flexeril and ativan overnight but was unable to fall asleep. Per provider, an abdominal process is unlikely as all tests are negative and this is felt to be related to her chronic back pain. A:Danielle is a 64 year old woman admitted on 10/13/19 with abdominal pain P: Danielle will likely discharge home with no new services.She will follow up with her PCP and discharge plan of care. CM will continue to support patient, family and discharge planning needs and concerns.
--- NOTE | 2019-10-15 14:43 | PGE_ITS ---
Date of Service Date of service: 10/15/19 Time of Service: 14:43 Assessment and Plan Assessment and plan (1) Thoracic radiculopathy: Status: Acute Assessment and plan: Evidence of disc herniation, but not cord impingement at T7-T8, which corresponds to location of symptoms. Improving with addition of NSAIDS, flexeril, lidocaine patch. Will transition to PO pain meds today. Consult PT. Will need outpatient follow up with spine. (2) Abdominal pain, right upper quadrant: Status: Ruled-out Assessment and plan: In fact, radiculopathy. See above (3) HTN (hypertension): Status: Chronic Assessment and plan: No change in tx (4) Vitamin D deficiency: Status: Acute Assessment and plan: Level pending (5) Vitamin B12 deficiency: Status: Acute Assessment and plan: Level low - replete. (6) DVT prophylaxis: Status: Acute Assessment and plan: lovenox (7) Discharge planning issues: Status: Acute Assessment and plan: full code Anticipate discharge home tomorrow Subjective Subjective Interval history since last seen: Pain is better today, but still has required IV morphine twice overnight and today. Denies dizziness, chest pain, shortness of breath. Had nausea this morning when she first got up, but not nauseated now. Her MRI images were reviewed by [facility] spine surgery, who felt that her T7-8 cord abnormality can be followed up as outpatient and treated symptomatically until then - there is no cord impingement. Exam Narrative Exam Narrative: General: pleasant middle-aged female, A&OX3, looks much more comfortable. HEENT: EOMI,MMM Heart: RRR, no m/r/g Lungs: CTAB Abdomen: soft, nontender Back: Palpable muscle spasm at lower thoracic spine Extremities: no e/c/c BLE's Objective Objective Clinical Data: Abnormal lab results 10/15/19 10/15/19 Range/Units 06:04 06:04 RBC 3.74 L (4.00-5.20) m/cumm Hgb 11.7 L (12.0-15.5) g/dL Hct 34.6 L (36.0-46.0) % Calcium 8.4 L (8.5-10.1) mg/dL Vital Signs Temperature 36.9 C 10/15/19 11:10 Temperature Source Tympanic 10/15/19 11:10 Pulse 59 L 10/15/19 11:10 Pulse Rhythm Regular 10/15/19 07:45 Respiratory Rate 17 10/15/19 11:10 Respiratory Effort Non-Labored 10/15/19 07:45 Respiratory Depth Normal 10/15/19 07:45 Respiratory Pattern Normal 10/15/19 07:45 Blood Pressure 150/72 H 10/15/19 11:10 Blood Pressure Position Sitting 10/13/19 14:22 Pulse Oximetry 96 10/15/19 11:10 Oxygen Delivery Method Room Air 10/15/19 11:10 Oxygen Flow Rate 0 10/15/19 11:10 Pain Level 7 10/15/19 12:12 Comment 10/14/19 19:48 Intake & Output 10/14/19 10/15/19 10/15/19 23:59 11:59 23:59 Intake Total 815 / 1775 150 / 390 240 / 390 Balance 815 / 1775 150 / 390 240 / 390 Intake: IV 665 / 1625 30 / 30 Oral 150 / 150 120 / 360 240 / 360 Other: Comment pt voiding independently in room. Voiding Methods Toilet Laboratory Results WBC 5.67 k/cumm (4.4-10.8) 10/15/19 06:04 RBC 3.74 m/cumm (4.00-5.20) L 10/15/19 06:04 Hgb 11.7 g/dL (12.0-15.5) L 10/15/19 06:04 Hct 34.6 % (36.0-46.0) L 10/15/19 06:04 MCV 92.5 fL (80-95) 10/15/19 06:04 MCH 31.3 pg (27.0-33.0) 10/15/19 06:04 MCHC 33.8 g/dL (32.0-36.0) 10/15/19 06:04 RDW 12.8 % (11.7-14.6) 10/15/19 06:04 Plt Count 198 x1000/uL (130-400) 10/15/19 06:04 MPV 10.9 fL (8.0-11.0) 10/15/19 06:04 Immature Gran % 0.2 % 10/15/19 06:04 Neutrophils % 31.0 10/15/19 06:04 Lymphocytes % 54.1 10/15/19 06:04 Monocytes % 11.8 10/15/19 06:04 Eosinophils % 2.5 10/15/19 06:04 Basophils % 0.4 10/15/19 06:04 Absolute Neutrophils 1.76 k/cumm (1.2-6.7) 10/15/19 06:04 Absolute Lymphocytes 3.07 k/cumm (1.2-3.4) 10/15/19 06:04 Absolute Monocytes 0.67 k/cumm (0.11-0.7) 10/15/19 06:04 Absolute Eosinophils 0.14 k/cumm (0.0-0.7) 10/15/19 06:04 Absolute Basophils 0.02 k/cumm (0.0-0.2) 10/15/19 06:04 PT 11.0 sec (9.3-11.0) 10/13/19 15:25 INR 1.1 (0.9-1.1) 10/13/19 15:25 Sodium 137 mmol/L (136-145) 10/15/19 06:04 Potassium 4.1 mmol/L (3.5-5.1) 10/15/19 06:04 Chloride 103 mmol/L (98-107) 10/15/19 06:04 Carbon Dioxide 29.8 mmol/L (21.0-32.0) 10/15/19 06:04 Anion Gap 4.2 mmol/L (3-11) 10/15/19 06:04 BUN 11 mg/dL (7-18) 10/15/19 06:04 Creatinine 0.81 mg/dL (0.55-1.02) 10/15/19 06:04 Estimated GFR/1.73 m2 >= 60.00 (mL/min/1.73m2) 10/15/19 06:04 Glucose 82 mg/dL (74-106) 10/15/19 06:04 Calcium 8.4 mg/dL (8.5-10.1) L 10/15/19 06:04 Magnesium 1.9 mg/dL (1.8-2.4) 10/15/19 06:04 Total Bilirubin 0.5 mg/dL (0.2-1.0) 10/15/19 06:04 Conjugated Bilirubin 0.11 mg/dL (0.00-0.20) 10/15/19 06:04 AST 26 U/L (15-37) 10/15/19 06:04 ALT 19 U/L (14-59) 10/15/19 06:04 Alkaline Phosphatase 68 U/L (46-116) 10/15/19 06:04 C-Reactive Protein 0.11 mg/dL (0.0-0.3) 10/14/19 06:10 Total Protein 6.9 g/dL (6.4-8.2) 10/15/19 06:04 Albumin 3.4 g/dL (3.4-5.0) 10/15/19 06:04 Lipase 34 U/L (73-393) 10/13/19 14:40 Vitamin B12 315 pg/mL (193-986) 10/15/19 06:04 Urine Color Yellow (Yellow) 10/13/19 16:10 Urine Clarity Clear (Clear) 10/13/19 16:10 Urine pH 8.5 (5-8) H 10/13/19 16:10 Ur Specific [place] 1.015 (1.005-1.025) 10/13/19 16:10 Urine Protein Negative mg/dL (Negative) 10/13/19 16:10 Urine Ketones Negative mg/dL (Negative) 10/13/19 16:10 Urine Blood Trace-intact (Negative) H 10/13/19 16:10 Urine Nitrite Negative (Negative) 10/13/19 16:10 Urine Bilirubin Negative (Negative) 10/13/19 16:10 Urine Urobilinogen 1.0 EU/dL (Up TO 0.2) H 10/13/19 16:10 Ur Leukocyte Esterase Negative (Negative) 10/13/19 16:10 Urine RBC 0-2 HPF (0-2) 10/13/19 16:10 Urine WBC 3-5 HPF (0-5) 10/13/19 16:10 Ur Epithelial Cells Moderate HPF (Negative) 10/13/19 16:10 Urine Crystals Negative HPF (Negative) 10/13/19 16:10 Urine Bacteria Negative HPF (Negative) 10/13/19 16:10 Urine Casts Negative LPF (Negative) 10/13/19 16:10 Urine Mucus Negative (Negative) 05/11/20 16:10 Ur Culture Indicated? No 10/13/19 16:10 Urine Glucose Negative mg/dL (Negative) 10/13/19 16:10 COVID-19 PCR Negative (Negative) 10/13/19 19:20 Nasopharyn COVID-19 PCR Not Applicable 10/13/19 19:20 Ref Test Perform Site [facility] lab 10/13/19 19:20 MRI thoracic spine: Small right paracentral disc herniation at T7-T8, mild adjacent cord deformity without signal abnormality in the cord. MRI lumbar spine: Degenerative changes and multilevel disc bulges as described above. Mild neural foraminal narrowing on the left at L 4 5 and bilaterally at L5-S1. Prominent disc bulge at L5-S1 with probable mild superimposed central disc herniation and no specific evidence of impingement.
[2019-10-15 15:20] VITALS: BP 147/84; PULSE 59; RESP 18; TEMP 36.5; O2SAT 97
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
[2019-10-15 18:56] VITALS: BP 142/82; PULSE 63; RESP 19; TEMP 36.6; O2SAT 95
[2019-10-15] MEDS: Lidocaine 5% Patch 1 PATCH TP (19:48)
[2019-10-15] MEDS: Enoxaparin 40 MG/0.4 ML SYR SC (19:50)
[2019-10-16 00:06] VITALS: BP 144/87; PULSE 64; RESP 19; TEMP 36.4; O2SAT 94
[2019-10-16] MEDS: LORazepam 1 MG TAB PO (03:37)
[2019-10-16 04:43] LABS: Vitamin D 25 Total 14.5 ng/ml (30-100)
[2019-10-16] MEDS: oxyCODONE 10 MG TAB PO (05:36)
[2019-10-16] MEDS: Normal Saline Flush 10 ML SYR IVP (05:37)
[2019-10-16 07:22] VITALS: BP 152/91; PULSE 58; RESP 17; TEMP 36.6; O2SAT 96
[2019-10-16] MEDS: Cyanocobalamin 500 MCG TAB 1000 MCG PO (07:47)
[2019-10-16] MEDS: LIDOCAINE Patch Removal 1 EACH TP (07:48)
[2019-10-16] MEDS: Ibuprofen 600 MG TAB PO ×2 (07:48→11:04)
[2019-10-16] MEDS: Omeprazole 20 MG CAPCR PO (07:48)
[2019-10-16] MEDS: Atenolol 50 MG TAB 100 MG PO (07:48)
[2019-10-16] MEDS: DULoxetine 30 MG CAP 60 MG PO (07:48)
[2019-10-16] MEDS: Cyclobenzaprine 10 MG TAB PO (07:48)
[2019-10-16] MEDS: Pregabalin 50 MG CAP 150 MG PO (07:48)
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
[2019-10-16] MEDS: Acetaminophen 500 MG TAB 1000 MG PO (11:03)
[2019-10-16] MEDS: Ergocalciferol 50000 UNITS CAP PO (11:04)
--- NOTE | 2019-10-16 11:34 | W.NUTRFU ---
Date of service: 10/16/19 Time of Service: 11:34 Nutritional Follow up NOTE: 64 year old female admitted with abdominal pain, with disc herniation. PMH: HTN, Vit D def, Vit B12 def, oxy, morphine. Following Regular Meal plan with adequate intake (>75%). Not at risk for nutritional decline at this time. Will be available prn. Time Spent in Nutritional Counseling and Treatment: 0 time spent face to face
--- NOTE | 2019-10-20 15:11 | PDOC.CMDIS ---
- If Service Date Differs Date of service: 10/16/19 Time of Service: 10:00 LACE Index Scoring Tool - Questions: Length of Stay (in days): 3 Acuity (Admit via E.D.?): Yes Comorbidities: Liver or Renal Disease E.D. Visits: 1 - Answers: Total Score: 12 Risk of Readmission: High Risk Care Management Discharge Reason for Hospitalization: Abdominal pain Discharge Plan: Danielle will discharge home with no new services.She will follow up with her PCP and discharge plan of care and transport via private vehicle with friends. Patient/Family Education Needs: Discharge plan, follow up plan, limitations, Ask Me Three
== END 2019-10-16 12:07 | disposition home or self-care (01) | DRG 552 ==
LOC: ER 19:18 → MS 19:57
PROVIDERS: Admitting Provider General Practice; Emergency Provider Student in an Organized Health Care Education/Training Program; PCP Family Medicine; Visit Provider Internal Medicine
DX: M54.14 Radiculopathy, thoracic region (principal); R10.11 Right upper quadrant pain; M51.24 Other intervertebral disc displacement, thoracic region; G89.29 Other chronic pain; E53.8 Deficiency of other specified B group vitamins; E55.9 Vitamin D deficiency, unspecified; Z79.891 Long term (current) use of opiate analgesic; I10 Essential (primary) hypertension; Z03.818 Encounter for observation for suspected exposure to other biological agents ruled out; K21.9 Gastro-esophageal reflux disease without esophagitis; F17.210 Nicotine dependence, cigarettes, uncomplicated
CPT/HCPCS: 36415; 74177; 80048; 80051; 80053; 80076; 82306; 83690; 93005; 96361; 96374; 97162; 97530; 99222; 99232; 99233; 99239; 99253; 99285; J1650; U0003; 72146; 72148; 76700; 81003; 81015; 82607; 83735; 85025; 85610; 86140; 93010; 99284; J1885; J2060; J3420; J3490

== ENCOUNTER 2020-02-16 03:17 | Outpatient (CLI) | payer MEDICAID, SELFPAY ==
[2020-02-16 12:56] LABS: HCT 37.7 % (36.0-46.0); HGB 12.4 g/dL (11.2-15.7); MCH 31.5 pg (27.0-33.0); MCHC 32.9 % (32.0-36.0); MCV 95.7 fL (80-95); MPV 10.5 fL (8.0-11.0); Platelet Count 268 10^3/uL (130-400); RBC 3.94 10^6/uL (3.93-5.22); RDW 12.9 % (11.7-14.6); RDW-SD 45.6 fL; WBC 8.62 10^3/uL (4.4-10.8)
[2020-02-16 14:54] LABS: Vitamin D 25 Total 36.1 ng/ml (30-100)
[2020-02-16 14:56] LABS: Folate 5.3 ng/mL (8.6-20.0); TSH (W/Ref FT4) 2.31 uIU/mL (0.36-3.74)
[2020-02-16 14:58] LABS: Vitamin B12 > 2000 pg/mL (193-986)
== END 2020-02-16 03:37 ==
PROVIDERS: PCP Family Medicine; Visit Provider Family Medicine
DX: E55.9 Vitamin D deficiency, unspecified (principal); I10 Essential (primary) hypertension; R94.6 Abnormal results of thyroid function studies; E53.8 Deficiency of other specified B group vitamins
CPT/HCPCS: 36415; 82306; 85027; 82607; 82746; 84443

== ENCOUNTER 2020-05-19 00:37 | Outpatient (CLI) | payer MEDICAID, SELFPAY ==
[2020-05-19 12:04] LABS: HCT 38.8 % (36.0-46.0); MCHC 33.5 % (32.0-36.0); MCV 92.4 fL (80-95); MPV 10.6 fL (8.0-11.0); Platelet Count 247 10^3/uL (130-400); RDW-SD 43.7 fL; WBC 7.67 10^3/uL (4.4-10.8)
--- NOTE | 2020-05-19 12:25 | DI.MAMMO_ITS ---
EXAM: MG MAMMO SCREENING CLINICAL HISTORY: SCREENING,Z12.31. TECHNIQUE: Bilateral full field digital CC and MLO mammographic images were obtained with 3D tomosyn thesis and utilizing computer aided detection (CAD). COMPARISON: Prior mammograms dating back to 2010, the most recent being June 2018. FINDINGS: Fibroglandular tissue is moderately dense. There are no new significant radiograph findings in the right breast. In the left breast there is suggestion of a nodule on MLO view located approximately 4.5 centimetres in from the nipple. This is equivocal on 3D imaging. Possible other similar size nodule slightly hi gher up in the left breast.. There are no malignant-appearing microcalcification groups in this sury on or elsewhere in either breast. There is no significant architectural distortion nor skin thickeni ng-retraction. IMPRESSION: No radiographic evidence of malignancy in the right breast. Left breast nodules. Spot compression 3D MLO and CC views recommended. Also breast ultrasound BI-RADS Category 0 - Assessment Incomplete: Need additional imaging evaluation Breast Density - Category C - Heterogeneously dense Breast density Category C or D implies that the patient has dense breast tissue. Dense breast tissue can make it harder to find cancer on a mammogram. Dense breast tissue is also associated with an incr eased risk of breast cancer. This information about the result of the mammogram report was provided to the patient to raise their awareness. Use this report when you speak with the patient about their risks for breast cancer, which includes their family history. At that time, you may recommend additional screening tests (Ultrasoun d or MRI) as these tests may add significant information. A negative radiographic report should not delay biopsy if a dominant or clinically suspicious mass is present. Up to ten percent of cancers are not identified on mammography. A negative report may reinforce clinical impression. Adenosis and dense breasts may obscure an underlying neoplasm. False positive reports average 6 to 10%. Patient will receive a letter notifying them of these results.
[2020-05-19 12:56] LABS: Folate > 20.0 ng/mL (8.6-20.0)
== END 2020-05-19 00:57 ==
PROVIDERS: PCP Family Medicine; Visit Provider Family Medicine
DX: Z12.31 Encounter for screening mammogram for malignant neoplasm of breast (principal); R92.8 Other abnormal and inconclusive findings on diagnostic imaging of breast; E53.8 Deficiency of other specified B group vitamins
CPT/HCPCS: 36415; 77063; 77067; 85027; 82746

== ENCOUNTER 2020-05-26 00:42 | Outpatient (CLI) | payer MEDICAID, SELFPAY ==
--- NOTE | 2020-05-26 13:48 | DI.MAMMO_ITS ---
EXAM: MG MAMMO SCREEN CALL BACK UNI and U/S breast LT limited CLINICAL HISTORY: F/U MAMMO, ? NODULE LT BREAST. TECHNIQUE: Craniocaudal and mediolateral oblique Full Field Digital Mammography views of the left br east with Computer Aided Diagnosis followed by Tomosynthesis and left breast ultrasound. COMPARISON: Priors for comparison. FINDINGS: Mammography/Tomosynthesis: Masses/Architectural Distortion: None seen. Microcalcifictions: No suspicious pleomorphic-type are seen. Skin Thickening/Nipple Retraction: None. Left breast US: Echotexture: Normal appearance of the glandular tissue. Shadowing: No suspicious foci. Cyst: None. Solid lesions: None seen. Ductal dilation: None. IMPRESSION: 1. No evidence of malignancy is noted. 2. A six-month follow-up left mammogram is requested for re-evaluation. 3. The findings were discussed with the patient on the date of the examination. BI-RADS Category 3 - 6 month - Probably Benign Finding: Recommend follow-up mammography in 6 months Breast Density - Category C - Heterogeneously dense The mammogram demonstrates the patient's breast tissue is dense. Dense breast tissue is very common a nd is not abnormal but dense breast tissue can make it harder to find cancer on a mammogram. Also, de nse breast tissue may increase their breast cancer risk. This information about the result of the [facility] mogram report was provided to the patient to raise their awareness. Use this report when you speak wi th the patient about their risks for breast cancer, which includes their family history. At that time , you may recommend for more screening tests (Ultrasound or MRI) as they might be useful based on the ir risk. A negative radiographic report should not delay biopsy if a dominant or clinically suspicious mass is present. Up to ten percent of cancers are not identified on mammography. A negative report may reinforce clinical impression. Adenosis and dense breasts may obscure an underlying neoplasm. False positive reports average 6 to 10%. Patient will receive a letter notifying them of these results.
== END 2020-05-26 01:02 ==
PROVIDERS: PCP Family Medicine; Visit Provider Family Medicine
DX: R92.8 Other abnormal and inconclusive findings on diagnostic imaging of breast (principal)
CPT/HCPCS: 76642; 77063; 77067

== ENCOUNTER 2020-06-18 09:39 | Outpatient (CLI) | payer MEDICAID, SELFPAY ==
--- NOTE | 2020-06-18 | DI.CT_ITS ---
EXAM: CT RENAL COLIC WO CT CLINICAL HISTORY: RT FLANK PAIN R10.9, HEMATURIA R31.9, NAUSEA R11.0. TECHNIQUE: Imaging Protocol: Axial computed tomography images with coronal and sagittal reformatted images were created and reviewed CONTRAST MATERIAL: Intravenous: none Oral: None COMPARISON: CT CT THORAX ABD/PEL CTA from 10/13/2019 FINDINGS: VISUALIZED LUNG BASES: There are mild pleural based increased markings in the posterior basal segment of the left lower lobe, unchanged from previous and not associated with pleural effusion.. ABDOMEN: There is no ascites. LIVER: There are no obvious focal hepatic lesions evident of this noninfused study. GALLBLADDER/BILIARY: No obvious gallbladder pathology. CBD is not dilated. PANCREAS: Pancreatic parenchyma appears diffusely hypodense. No peripancreatic streaking. Pancreati c duct is not dilated. SPLEEN: Spleen is not enlarged. No obvious intrasplenic lesions. ADRENALS: There are no significant adrenal masses. KIDNEYS:There is a cyst again noted in superior pole of the right kidney which measures 2.8 x 2.1 franchesca timeters, unchanged. No other focal right kidney findings. In the left kidney there is a tiny 2 mil limeter calculus in the superior pole noted no hydronephrosis nor hydroureter. There are no calculi seen along the course of left ureter nor in the nondistended urinary bladder.. ABDOMINAL AORTA: Abdominal aorta is not enlarged and there is no [id number] adenopat hy. ABDOMINAL WALL/GI: No evidence of significant anterior abdominal wall hernia. No bowel obstruction. PELVIS: LYMPH NODES: There is no intrapelvic nor inguinal adenopathy. GI: No evidence of appendicitis.No evidence of sigmoid diverticulitis. URINARY BLADDER: No calculi nor obvious masses evident REPRODUCTIVE: Uterus is surgically absent. No adnexal masses nor free fluid in the dependent aspect of the pelvis. OSSEOUS: No significant osseous lesions. IMPRESSION: 1. There is a solitary tiny nonobstructive calculus in the upper pole the left kidney which measures 2 millimeters. No other calculi seen along the urinary tract nor in the urinary bladder. No hydrone phrosis nor hydroureter. Benign cyst is again noted in the superior pole of the opposite-right kidne y. 2. The appearance of the pancreas is diffusely hypodense and although there is no peripancreatic stre aking, recommend appropriate broad work to determine if there is pancreatitis. Pancreatic duct is no t dilated. There are no pancreatic calcifications nor obvious focal pancreatic mass evident on this noninfused study. There are no peripancreatic fluid collections. 3. Benign-appearing lung base findings are unchanged from the prior study listed above. There are no pleural effusions evident. RADIATION DOSE DELIVERED: 605.52mGy.cm Total DLP DATA REPOSITORY: All CT scans at this facility are submitted to the National Radiology Data Registry (NRDR) Dose Index Registry (DIR) with the [employer] (A[employer]). RADIATION OPTIMIZATION: All CT scans at this facility use at least one of these dose optimization te chniques: automated exposure control; mA and/or kV adjustment per patient size (includes targeted exa ms where dose is matched to clinical indication); or iterative reconstruction.
== END 2020-06-18 09:59 ==
PROVIDERS: PCP Family Medicine; Visit Provider Nurse Practitioner Family
DX: N20.0 Calculus of kidney (principal); N28.1 Cyst of kidney, acquired; R11.0 Nausea
CPT/HCPCS: 74176

== ENCOUNTER 2020-06-18 21:42 | Outpatient (REF) | payer MEDICAID, SELFPAY ==
[2020-06-18 20:28] LABS: Bilirubin Small (Negative); Blood Trace-lysed (Negative); Clarity Sl Cloudy (Clear); Glucose Negative (Negative); Ketones 15 mg/dL (Negative); Leukocyte Esterase Negative (Negative); Nitrite Negative (Negative); Specific Gravity >= 1.030 (1.005-1.025); pH 5.5 (5-8)
[2020-06-18 20:47] LABS: Bacteria Moderate HPF (Negative); C & S Indicated? C&S Done As Ordered; Casts Negative LPF (Negative); Crystals Negative HPF (Negative); Epithelial Cells Few HPF (Negative); Mucus Negative (Negative); RBC 0-2 HPF (0-2)
[2020-06-19 16:43] LABS: COVID-19 RT-PCR UVMMC Result Negative (Negative)
== END 2020-06-18 22:02 ==
LOC: NCHCN 21:42
PROVIDERS: PCP Family Medicine; Visit Provider Nurse Practitioner Family
DX: R31.9 Hematuria, unspecified (principal); R10.9 Unspecified abdominal pain; R11.0 Nausea
CPT/HCPCS: U0003; 81003; 81015; 87086

== ENCOUNTER 2020-06-21 17:46 | Outpatient (REF) | payer MEDICAID, SELFPAY ==
[2020-06-21 19:50] LABS: Amylase 36 U/L (25-115); Lipase 48 U/L (73-393); TSH (W/Ref FT4) 1.91 uIU/mL (0.36-3.74)
[2020-06-21 20:48] LABS: ESR 15 mm/hr (0-30)
[2020-06-22 11:33] LABS: Bilirubin Negative (Negative); Blood Trace-intact (Negative); Clarity Clear (Clear); Glucose Negative (Negative); Ketones Negative (Negative); Leukocyte Esterase Negative (Negative); Nitrite Negative (Negative); Specific Gravity 1.025 (1.005-1.025); Urobilinogen 0.2 EU/dL (Up TO 0.2); pH 5.5 (5-8)
[2020-06-22 11:50] LABS: Bacteria Few HPF (Negative); C & S Indicated? No; Casts 10-20 Hyaline LPF (Negative); Crystals Negative HPF (Negative); Epithelial Cells Few HPF (Negative); Mucus Trace (Negative); WBC 0-2 HPF (0-5)
[2020-06-22 13:31] LABS: COVID-19 RT-PCR UVMMC Result Negative (Negative)
[2020-06-23 12:59] LABS: ALT 16 U/L (14-59); AST 20 U/L (15-37); Albumin 4.1 g/dL (3.4-5.0); Alkaline Phosphatase 67 U/L (46-116); Anion Gap 10.7 mmol/L (3-11); BUN 7 mg/dL (7-18); Bilirubin, Total 0.6 mg/dL (0.2-1.0); CO2 27.3 mmol/L (21.0-32.0); Calcium 9.2 mg/dL (8.5-10.1); Chloride 103 mmol/L (98-107); Glucose 91 mg/dL (74-106); Potassium 3.7 mmol/L (3.5-5.1); Sodium 141 mmol/L (136-145); Total Protein 7.7 g/dL (6.4-8.2)
== END 2020-06-21 18:06 ==
LOC: NCHCN 17:46
PROVIDERS: PCP Family Medicine; Visit Provider Nurse Practitioner Family
DX: R53.83 Other fatigue (principal); R11.0 Nausea
CPT/HCPCS: 80053; 83690; 85652; U0003; 81003; 81015; 82150; 84443

== ENCOUNTER 2020-08-27 12:01 | Emergency (ER) | payer MEDICAID, SELFPAY ==
--- NOTE | 2020-08-27 12:00 | RT.EKG_ITS ---
APPROVED REPORT Exam: Resting ECG Patient Location: E HR:63 bpm ECG Measurements Heart Rate 63 AXIS NJ 250 P 52 QRSd 96 QRS 8 QT 408 T 45 QTc 418 Conclusion Sinus rhythm...normal P axis, V-rate 60- 99 Prolonged NJ interval...NJ >220, V-rate 50- 90 I have reviewed and interpreted ECG and agree with software generated interpretation.
[2020-08-27 12:04] VITALS: BP 133/75; PULSE 68; RESP 18; TEMP 36.6; O2SAT 96
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
[2020-08-27 12:22] LABS: HCT 38.3 % (36.0-46.0); HGB 12.9 g/dL (11.2-15.7); MCH 31.6 pg (27.0-33.0); MCHC 33.7 % (32.0-36.0); MCV 93.9 fL (80-95); MPV 10.8 fL (8.0-11.0); Platelet Count 213 10^3/uL (130-400); RBC 4.08 10^6/uL (3.93-5.22); RDW-SD 44.6 fL; WBC 8.44 10^3/uL (4.4-10.8)
[2020-08-27] MEDS: Normal Saline 1,000 ML 150 ML IV (12:23)
[2020-08-27] MEDS: Normal Saline Flush 10 ML SYR IVP (12:23)
[2020-08-27 12:31] LABS: Bilirubin Negative (Negative); Blood Negative (Negative); Clarity Clear (Clear); Glucose Negative (Negative); Ketones Negative (Negative); Leukocyte Esterase Negative (Negative); Nitrite Negative (Negative); Specific Gravity 1.015 (1.005-1.025); Urobilinogen 0.2 EU/dL (Up TO 0.2); pH 5.5 (5-8)
[2020-08-27 12:38] LABS: ALT 21 U/L (14-59); AST 21 U/L (15-37); Albumin 3.5 g/dL (3.4-5.0); Alkaline Phosphatase 88 U/L (46-116); Anion Gap 5.2 mmol/L (3-11); BUN 28 mg/dL (7-18); Bilirubin, Total 0.4 mg/dL (0.2-1.0); CO2 29.8 mmol/L (21.0-32.0); CREATININE 1.3 mg/dL (0.55-1.02); Calcium 8.5 mg/dL (8.5-10.1); Chloride 101 mmol/L (98-107); Estimated GFR 41.37 (mL/min/1.73m2); Glucose 83 mg/dL (74-106); Sodium 136 mmol/L (136-145); Total Protein 7.4 g/dL (6.4-8.2)
[2020-08-27 12:45] LABS: *AMPHETAMINES SCREEN URINE Negative (Negative); *BARBITURATES SCREEN URINE Negative (Negative); *BENZODIAZEPINES SCREEN URINE Negative (Negative); Cannabinoids THC POSITIVE (Negative); Cocaine Screen,Urine Negative (Negative); METHADONE URINE SCREEN Negative (Negative); OPIATES URINE SCREEN POSITIVE (Negative)
[2020-08-27 12:47] LABS: Tricyclic Antidepressants Negative (Negative)
[2020-08-27] MEDS: ACETAMINOPHEN 1,000 MG/100 ML BTL 400 MG IVPB (13:02)
[2020-08-27] MEDS: Ondansetron 4 MG/2 ML VIAL IVP (13:04)
--- NOTE | 2020-08-27 13:19 | DI.CT_ITS ---
EXAM: CT HEAD CERVICAL SPINE WO COMPARISON: CT HEAD WITHOUT CONTRAST from 02/26/2016 MR MRI - CERVICAL SPINE WO CONT from 04/21/2016 FINDINGS: CT examination of the cervical spine was performed without contrast administration. Note is made of an old deformity base of the odontoid, no change in appearance from MR of April 23. There is no evidence of acute cervical spine fracture or dislocation. Intervertebral disc spaces are well maintained. Tracheolaryngeal structures appear intact. No cervical mass or adenopathy. Noncontrast cranial CT was performed. Ventricular system is normal in appearance. No evidence of acute intracranial hemorrhage, mass effect, or midline shift. No calvarial fracture. The orbital and temporal bone structures appear intact. Visualized mastoid air cells and paranasal sinuses appear clear. IMPRESSION: No evidence of acute cervical spine injury. No evidence of acute intracranial injury. RADIATION DOSE DELIVERED: 1,481.52mGy.cm Total DLP 1,481.52mGy.cm Total DLP DATA REPOSITORY: All CT scans at this facility are submitted to the National Radiology Data Registry (NRDR) Dose Index Registry (DIR) with the [employer] (ACR). RADIATION OPTIMIZATION: All CT scans at this facility use at least one of these dose optimization te chniques: automated exposure control; mA and/or kV adjustment per patient size (includes targeted exa ms where dose is matched to clinical indication); or iterative reconstruction.
== END 2020-08-27 14:10 | disposition home or self-care (01) ==
PROVIDERS: Emergency Provider Registered Nurse Emergency; PCP Family Medicine
DX: S06.899A Other specified intracranial injury with loss of consciousness of unspecified duration, initial encounter (principal); W22.8XXA Striking against or struck by other objects, initial encounter; R11.0 Nausea; R79.89 Other specified abnormal findings of blood chemistry
CPT/HCPCS: 80053; 80307; 85027; 93005; 96374; 96375; 99284; 70450; 72125; 81003; 93010; 99283; J0131; J2405

== ENCOUNTER 2021-04-27 01:56 | Outpatient (CLI) | payer MEDICAID, SELFPAY ==
--- NOTE | 2021-04-27 08:00 | DI.CTLCSR_ITS ---
Exam(s) CT CHEST LUNG CANCER SCREEN EXAM: CT CHEST LUNG CANCER SCREEN CLINICAL HISTORY: TOBACCO ABUSE F17.200 TECHNIQUE: CT examination of the chest was performed utilizing low-dose lung cancer screening protoc ol. COMPARISON: CT CT THORAX ABD/PEL CTA from 10/13/2019 FINDINGS: Images obtained through the upper abdomen show unremarkable appearance of visualized portions of the liver, spleen, pancreas, adrenals, kidneys.. There is no mediastinal or hilar adenopathy. Mediastinal vascular structures appear intact by noncon trast criteria. Tracheobronchial tree appears intact. No pleural effusion or pleural-based mass. There are mild changes of COPD with some apical blebs noted bilaterally. There are peripheral poorly defined reticular radiodensities, question early changes of pulmonary fibrosis. There is a 5 millim eter in diameter well-circumscribed noncalcified lingular pulmonary nodule, this is unchanged in appe arance comparison with prior CT of October 13, 2019. IMPRESSION: Lung RADS Cat 2 - Benign Appearance / Behavior: Nodules with a very low likelihood of becoming a cli nically active cancer due to size or lack of growth Continue annual screening with LDCT in 12 months. RADIATION DOSE DELIVERED: 74.49mGy.cm Total DLP CTDIvol 74.49mGy.cm Total DLP CTDIvol RADIATION OPTIMIZATION: All CT scans at this facility use at least one of these dose optimization te chniques: automated exposure control; mA and/or kV adjustment per patient size (includes targeted exa ms where dose is matched to clinical indication); or iterative reconstruction.
--- NOTE | 2021-04-27 08:30 | DI.MAMMO_ITS ---
Exam(s) MAMMO DIAGNOSTIC BI EXAM: MAMMO DIAGNOSTIC BI CLINICAL HISTORY: ABNL MAMMO R92.8 SHORT TERM F/U TECHNIQUE: Mammograms were interpreted according to the usual protocol including computer analysis w Vontu CAD system, tomosynthesis and C-view imaging. COMPARISON: FINDINGS: The breasts are heterogeneously dense. No dominant mass or clumped microcalcification is identified in either breast. Current examination is compared with previous examinations including May 2020 and there has been no gross interval change in appearance in comparison with the prior studies. IMPRESSION: No specific evidence of malignancy at this time. Routine screening examinations are suggested at yea rly intervals in this age group according to the ACS ACR guidelines. BI-RADS Category 1 - Negative Breast Density - Category C - Heterogeneously dense
== END 2021-04-27 02:16 ==
PROVIDERS: PCP Family Medicine; Visit Provider Family Medicine
DX: Z12.2 Encounter for screening for malignant neoplasm of respiratory organs (principal); F17.210 Nicotine dependence, cigarettes, uncomplicated; R92.8 Other abnormal and inconclusive findings on diagnostic imaging of breast; R91.8 Other nonspecific abnormal finding of lung field
CPT/HCPCS: 71271; 77062; 77066; G0279

== ENCOUNTER 2021-07-15 13:32 | Outpatient (REF) | payer MEDICAID, SELFPAY ==
[2021-07-15 20:17] LABS: Anion Gap 8.4 mmol/L (3-11); BUN 12 mg/dL (7-18); CO2 27.6 mmol/L (21.0-32.0); Calcium 8.9 mg/dL (8.5-10.1); Calculated LDL 134 mg/dL (<100); Chloride 103 mmol/L (98-107); Cholesterol 211 mg/dL (<200); Estimated GFR 55.82 (mL/min/1.73m2); Glucose 92 mg/dL (74-106); HDL Cholesterol 69 mg/dL (40-60); Potassium 4.8 mmol/L (3.5-5.1); Sodium 139 mmol/L (136-145); Triglyceride 44 mg/dL (<150)
[2021-07-18 10:06] LABS: HIV-1/2 Ag & Ab Screen Negative (Negative)
[2021-07-18 12:36] LABS: Hepatitis C Ab w Rflx HCV PCR Reactive (Negative)
[2021-07-20 11:49] LABS: HCV RNA Qualitative Undetected (Undetected)
== END 2021-07-15 13:33 | disposition home or self-care (01) ==
LOC: NCHCN 13:32
PROVIDERS: PCP Family Medicine; Visit Provider Family Medicine
DX: I10 Essential (primary) hypertension (principal); Z13.220 Encounter for screening for lipoid disorders; Z11.4 Encounter for screening for human immunodeficiency virus [HIV]; Z11.59 Encounter for screening for other viral diseases; Z00.00 Encounter for general adult medical examination without abnormal findings
CPT/HCPCS: 80048; 80061; 86803; 87389; 87522

== ENCOUNTER → 2021-08-08 02:51 | Outpatient (CLI) | payer MEDICAID, SELFPAY | PROVIDERS: PCP Family Medicine; Visit Provider Family Medicine ==

== ENCOUNTER 2021-10-07 21:56 | Outpatient (REF) | payer MEDICAID, SELFPAY ==
[2021-10-07 19:26] LABS: Folate > 20.0 ng/mL (8.6-20.0)
[2021-10-10 05:24] LABS: Vitamin D 25 Total 34.5 ng/mL (30-100)
[2021-10-10 12:41] LABS: Hepatitis C Ab w Rflx HCV PCR Reactive (Negative)
[2021-10-12 15:36] LABS: HCV RNA Qualitative Undetected (Undetected)
== END 2021-10-07 21:57 | disposition home or self-care (01) ==
LOC: NCHCN 21:56
PROVIDERS: PCP Family Medicine; Visit Provider Family Medicine
DX: B19.20 Unspecified viral hepatitis C without hepatic coma (principal); E55.9 Vitamin D deficiency, unspecified; E53.8 Deficiency of other specified B group vitamins
CPT/HCPCS: 82306; 86803; 87522; 82746

== ENCOUNTER 2022-11-01 11:49 | Outpatient (REF) | payer MEDICARE, MEDICAID, SELFPAY ==
[2022-11-01 15:39] LABS: HCT 33.6 % (36.0-46.0); HGB 11.8 g/dL (11.2-15.7); MCH 31.8 pg (27.0-33.0); MCHC 35.1 % (32.0-36.0); MCV 91 fL (80-95); MPV 10.8 fL (8.0-11.0); Platelet Count 238 10^3/uL (130-400); RBC 3.71 10^6/uL (3.93-5.22); RDW 13.5 % (11.7-14.6); RDW-SD 45.4 fL; WBC 7.09 10^3/uL (4.4-10.8)
== END 2022-11-01 11:50 | disposition home or self-care (01) ==
LOC: NCHCN 11:49
PROVIDERS: PCP Family Medicine; Visit Provider Family Medicine
DX: K62.5 Hemorrhage of anus and rectum (principal)
CPT/HCPCS: 85027

== ENCOUNTER 2023-06-25 16:21 | Outpatient (REF) | payer MEDICARE, MEDICAID, SELFPAY ==
[2023-06-25 23:52] LABS: Folate 7.4 ng/mL (8.6-20.0); Vitamin B12 1505 pg/mL (193-986)
[2023-06-27 09:24] LABS: Lambda Free Light Chain 1.68 mg/dL (0.57-2.63)
[2023-06-27 14:11] LABS: Albumin 56.2 % (55.8-66.1); Albumin g/dL 4.2 g/dL (3.6-5.2); Total Protein 7.5 g/dL (6.3-8.2)
[2023-06-29 10:21] LABS: Methylmalonic Acid 0.11 nmol/mL (<=0.40)
== END 2023-06-25 16:22 | disposition home or self-care (01) ==
LOC: NCHCN 16:21
PROVIDERS: PCP Family Medicine; Visit Provider Family Medicine
DX: G62.9 Polyneuropathy, unspecified (principal)
CPT/HCPCS: 80186; 82607; 82746; 83883; 84165

== ENCOUNTER 2023-10-15 15:01 | Outpatient (REF) | payer MEDICARE, SELFPAY ==
[2023-10-15 18:34] LABS: HCT 35.9 % (36.0-46.0); HGB 12.4 g/dL (11.2-15.7); MCHC 34.5 % (32.0-36.0); MCV 93 fL (80-95); MPV 10.9 fL (8.0-11.0); Platelet Count 244 10^3/uL (130-400); RBC 3.88 10^6/uL (3.93-5.22); RDW 13.3 % (11.7-14.6); RDW-SD 45.1 fL; WBC 6.31 10^3/uL (4.4-10.8)
== END 2023-10-15 15:02 | disposition home or self-care (01) ==
LOC: NCHCN 15:01
PROVIDERS: PCP Family Medicine; Visit Provider Family Medicine
DX: Z01.818 Encounter for other preprocedural examination (principal)
CPT/HCPCS: 85027

== ENCOUNTER 2023-12-31 16:32 | Outpatient (REF) | payer MEDICARE, SELFPAY ==
--- OUTSIDE RECORDS SUMMARY | 2023-12-31 16:45 | XMS_ITS | Encounter Summary ---
Author Organization [facility] Address [address] [place] [address] Care Team Providers Care Stump Blower Name Role Phone Alina Santacruz MD Primary Care Provider [phone] Reason for Visit * Reason Onset Date Comments Appointment Related 07/19/2023 Encounter Details Date Type Department Care Team (Late st Contact Info) Description 07/19/2023 Telephone [facility] Interventional Pain [address] [place] [address] Beka Turner, EMMA Appointment Related Social History Tobacco Use Types Packs/Day Years Used Date Smoking Tobacco: Every Day Cigarettes 0.3 21 Smokeless Tobacco: Never Alcohol Use Standard Drinks/Week Comments Not Currently 0 (1 standard drink = 0.6 oz pur e alcohol) Interpersonal Safety Answer Date Record ed Physically Hurt Never 01/04/2020 Verbally Threaten Not on file 01/04/2020 Sex and Gender Information Value Date Recorded Sex Assigned at Not on file Gender Identity Female 08/17/2021 11:20 EDT Sexual Orientation Not on file documented as of this encounter Functional Status Functional Status Response Date of Assess ment Are you deaf or do you have serious difficulty h earing? No 11/15/2022 Because of a physical, menta l, or emotional condition, does this person have difficulty doing errands alone such as visiting a doctor's office or shopping? Yes 07/12/2023 Cognitive Status Response Date of Assessm ent Because of a physical, menta l, or emotional condition, does this person have serious difficulty concentrating, remembering, or making decisions? Yes 07/12/2023 documented as of this encounter Miscellaneous Notes * Telephone Encounter - Leidy Jimenez PA-C - 08/06/2023 0854 EST Called Hoa and explained that I am unable to provide any information as there is no release in the chart to speak with her. She can talk with the patient to change this if patient would like too. Patient has declined to give permission for [facility] to verbally discuss any information with anyone other than the patient. Permission remains in effect until the patient elects to revoke it. * Telephone Encounter - Cami Archer RN - 08/02/2023 1249 EST 08/02/2023: RN attempted to call pt brine process operator Hoa Casas as call was listed as a high priority. No answer. RN left a message advising Ms Casas that JANAK Jimenez would be out until Sunday but if she needed immediate assistance to call me back at [phone]. FYI to JANAK Jimenez. * Telephone Encounter - Katrin Uriostegui - 08/02/2023 1238 EST Pts insurance case manager, Hoa Casas, called to speak kayla Forbes. She states Pt is scheduled for a 2nd opinion at [facility] on SundayAugust 05. She wanted to touch base kayla Forbes before pt's scheduled follow up on 08/21/23, as she was unclear about the treatment plan moving forward. Please call her back to discuss @ [phone]. * Telephone Encounter - Leidy Jimenez PA-C - 07/19/2023 1040 EST Spoke with patient on the phone. She notes that she has a chronic migraine that got worse after the injection. The head pain does not change when she lays flat and her migraine is a 10/10. She noted that if the migraine does not ease up that she is going to go to the ER. I also talked to her about [facility]. She did have an appointment there back on06/26 but the patient really wanted to try an injection,therefore the appointment was not completed.Unfortunately, she did not do well with the injection and I would not recommend further injections.I have reached out to Leah Schmidt, the computer analyst supervisor at the [facility] to see if the patient can be seen for consultation for any other alternative therapies. * Telephone Encounter - Beka Turner RN - 07/19/2023 0917 EST Patient called clinic reporting headache of 10/10 pain which began at 2am this morning. Pt reports no improvement with lying down, medications, or other methods of treatment. Pt states she has taken Goody Powder, morphine, and lorazepam today but is not seeing an improvement in her pain. States her pain is a migraine and that she feels pain in her ear and jaw. Patient expressed interest in a referral to [facility]. Leidy Jimenez PA-C notified,will write a referral. Patient states that she does not currently have a plan to harm herself, nor does she intend to harmherself in the future. Pt stated I would never to anything to myself. Dr. Alcocer and Leidy Cooper notified of above. documented in this encounter Plan of Treatment Upcoming Encounters Date Type Department Care Team (Late st Contact Info) Description 01/07/2024 12:45 EDT Phlebotomy Only [facility] Hematology & Oncology [address] [id number] Blood Doctor, [facility] Hem Onc 01/07/2024 13:30 EDT Office Visit [facility] Hematology & Oncology [address] [id number] Maria Alejandra Jung MD [address] [place] [address], [facility] [address] [place] [id number] 01/16/2024 14:30 EDT Appointment [facility] Breast Imaging Mammography - [address] [id number] documented as of this encounter Visit Diagnoses Not on filedocumented in this encounter Care Teams Stump Blower Relationship Specialty Start Date End Date Alina Santacruz MD [address] [place] [phone] PCP - General 08/17/21 documented as of this encounter
--- OUTSIDE RECORDS SUMMARY | 2023-12-31 16:45 | XMS_ITS | Data Portability ---
Author Organization [facility], [facility] Address [address] [place] [address] Assessment Encounter Date Assessment Date Assessment LastModified by Organization Details LastModified Time 06/25/2023 06/25/2023 The total time devoted to today's encounter, including both the cexs-mw-uhen time with the patient and/or family/caregive r and akl-htjn-km-fac e time I personally spent is 36 minutes. Not available 06/25/2023 20:03:51 10/01/2023 10/01/2023 The total time devoted to today's encounter, including both the ytay-by-gsqn time with the patient and/or family/caregive r and jfr-amyt-ha-fac e time I personally spent is 30 minutes. Not available 10/01/2023 17:53:05 10/15/2023 10/15/2023 Patient presents for pre-op evaluation. The patient is a suitable candidate for the planned procedure. Their chronic medical problems are optimized Further preoperative evaluation is not needed. I Not available 10/15/2023 12:25:09 Plan of Treatment Reminders Order Date Submit Date Provider Last Modified By Organization Details Last Modified Time Details Appointments Annual Wellness Exam 40 2023 01:00P Elaine Montenegro Not available Not available Not available Follow Up 20 2023 01:40P Elaine Montenegro Not available Not available Not available Lab drug screen, urine 2023 024 [facility], [address], [place], [address], 06/25/2023 14:14:28 drug screen, urine 2023 024 [facility], [address], [place], [address], 10/01/2023 15:06:36 CBC 2023 024 [facility] (Registration ), [address] [place] [address] , [place], [address], 10/15/2023 18:38:49 Referral None recorded. Procedures None recorded. Surgeries None recorded. Imaging electroca rdiogram 2023 024 [email or web address] [facility] Cardiology Echo Scheduling, [address] [place], [address], 10/18/2023 08:58:03 Medication Orders lorazepam 1 mg tablet 2023 024 [facility] [address] [place] [address], [id number], 06/25/2023 14:21:44 morphine ER 30 mg tablet,ex tended release 2023 024 [facility] [address] [place] [address], [id number], 06/25/2023 14:21:44 morphine ER 30 mg tablet,ex tended release 2023 024 [facility] [address] [place] [address], [id number], 06/25/2023 14:21:45 morphine ER 30 mg tablet,ex tended release 2023 024 [facility] [address] [place] [address], [id number], 06/25/2023 14:21:45 omeprazol e 40 mg capsule,d elayed release 2023 024 [facility] [address] [place] [address], [address], 06/25/2023 14:21:44 amitripty line 10 mg tablet 2023 024 [facility], [address] [place] [address], [address], 06/25/2023 14:21:43 morphine ER 30 mg tablet,ex tended release 2023 024 [facility], [address] [place] [address], [address], 10/01/2023 18:01:19 morphine ER 30 mg tablet,ex tended release 2023 024 [facility], [address] [place] [address], [id number], 10/01/2023 18:01:19 morphine ER 30 mg tablet,ex tended release 2023 024 [facility], [address] [place] [address], [address], 10/01/2023 18:01:18 lorazepam 1 mg tablet 2023 024 [facility], [address] [place] [address], [address], 10/01/2023 18:01:19 atenolol 100 mg tablet 2023 024 [facility], [address] [place] [address], [id number], 10/15/2023 12:03:45 Patient TargetsNo targets recorded. Patient Instructions Encounter Date Encounter Id Patient Instructions Last Modified By Organization Details Last Modified Time 06/25/2023 [id number] Try taking the pregabalin three times per day rather than all at once. Try taking the lorazepam 2 mg in the am and 2 mg in the afternoon to see if that helps. Keep appointment with the pain clinic. Restart the AMITRIPTYLINE 10 mg- can take up to 30 mg at bedtime- can help with nerve burning pain. For heart burn, omeprazole 40 mg best to take 30 minutes before dinner. 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 However in the last few months she has had increased level of burning pain in her leg that has become unbearable despite multiple medications. She has seen neurology who did EMG studies more consistent with neuropathy than radiculopathy. As part of recommended labs she had SPEP and light chains, and while the SPEP was noted to be abnormal, she does have elevated kappa free light chains. Last chemistries in December 2022 (at [facility]) did not show elevated calcium. She does have a low folic acid and will resume taking orally. Referring Physician: Alina Montenegro, Family Medicine, Encounter Date: 06/29/2023 Physical Therapist Referral for Left side sciatica She has longstanding back pain and burning pain in the left leg. Has seen multiple specialists and is not a candidate at this time for surgery. She would benefit from AQUA THERAPY as regular land based PT has exacerbated her pain in the past. Referring Physician: Alina Montenegro, Family Medicine, Encounter Date: 07/27/2023 Results Created Date Observation Date Name Description Value Unit Range Abnormal Flag LastModifiedBy Organization Detail LastModifiedTime 06/07/1906/07/2023 TSH, serum or plasm a TSH Not Available [facility] ([facility]) [address] [place], [address], 06/08/2023 07:25:51 06/25/19 24 06/25/2023 VITAM IN B12 vitamin B12 1505 pg/mL 193-98 6 high Not Available [facility] [address] [facility] [place], [address] 06/25/2023 23:58:22 06/25/19 24 06/25/2023 FOLAT E folate 7.4 NG/mL 8.6-20 .0 low Not Available [address] [place], [address] 06/25/2023 23:58:23 06/25/1906/27/2023 FREE LIGHT CHAIN S kappa free light chain 3.50 mg/dL 0.33-1 .94 abnormal Not Available [address] [place], [address] 06/29/2023 14:14:07 06/25/19 24 06/27/2023 FREE LIGHT CHAIN S lambda free light chain 1.68 mg/dL 0.57-2 .63 Not Available [address] [place], [address] 06/29/2023 14:14:07 06/25/1906/27/2023 FREE LIGHT CHAIN S kappa/lambda ratio 2.08 0.26-1 .65 abnormal Not Available [address] [place], [address] 06/29/2023 14:14:07 06/25/1906/29/2023 METHY LMALO ADELFO ACID methylmaloni c acid 0.11 nmol/ mL <=0.40 Not Available [address] [place], [address] 06/29/2023 14:14:06/25/1906/27/2023 ELECT ROPHO RESIS , SERUM total protein 7.5 g/dL 6.3-8. 2 Not Available [address] [place], [address] 06/29/2023 14:14:08 06/25/1906/27/2023 ELECT ROPHO RESIS , SERUM albumin 56.2 % 55.8-6 6.1 Not Available [address] [place], [address] 06/29/2023 14:14:08 06/25/1906/27/2023 ELECT ROPHO RESIS , SERUM alpha 1 4.5 % 2.9-4. 9 Not Available [address] [place], [address] 06/29/2023 14:14:08 06/25/1906/27/2023 ELECT ROPHO RESIS , SERUM alpha 2 13.7 % 7.1-11 .8 abnormal Not Available [address] [place], [address] 06/29/2023 14:14:08 06/25/1906/27/2023 ELECT ROPHO RESIS , SERUM beta 9.4 % 8.4-13 .1 Not Available [address] [place], [address] 06/29/2023 14:14:08 06/25/1906/27/2023 ELECT ROPHO RESIS , SERUM gamma 16.2 % 11.1-1 8.8 Not Available [address] [place], [address] 06/29/2023 14:14:08 06/25/1906/27/2023 ELECT ROPHO RESIS , SERUM comment SEE BELOW Not Available [address] [place], [address] 06/29/2023 14:14:08 06/25/1906/27/2023 ELECT ROPHO RESIS , SERUM albumin g/dL 4.2 g/dL 3.6-5. 2 Not Available [address] [place], [address] 06/29/2023 14:14:08 06/25/1906/27/2023 ELECT ROPHO RESIS , SERUM alpha 1 g/dL 0.30 g/dL 0.15-0 .40 Not Available [address] [place], [address] 06/29/2023 14:14:08 06/25/1906/27/2023 ELECT ROPHO RESIS , SERUM alpha 2 g/dL 1.00 g/dL 0.50-1 .00 Not Available [address] [place], [address] 06/29/2023 14:14:08 06/25/1906/27/2023 ELECT ROPHO RESIS , SERUM beta g/dL 0.70 g/dL 0.60-1 .20 Not Available [address] [place], [address] 06/29/2023 14:14:08 06/25/19 24 06/27/2023 ELECT ROPHO RESIS , SERUM gamma g/dL 1.20 g/dL 0.60-1 .60 Not Available [facility] [address] [facility] , [place], [address] 06/29/2023 14:14:08 06/25/19 24 06/25/2023 drug scree n, urine Amphetamines : negati ve Not Available [facility] [address], [place], [address], 06/25/2023 14:00:07 06/25/19 24 06/25/2023 drug scree n, urine Barbiturates : negati ve Not Available [facility] [address], [place], [address], 06/25/2023 14:00:07 06/25/19 24 06/25/2023 drug scree n, urine BUP: negati ve Not Available [facility] [address], [place], [address], 06/25/2023 14:00:07 06/25/19 24 06/25/2023 drug scree n, urine Benzodiazepi rao: positi ve Not Available [facility] [address], [place], [address], 06/25/2023 14:00:07 06/25/19 24 06/25/2023 drug scree n, urine Cocaine: negati ve Not Available [facility] [address], [place], [address], 06/25/2023 14:00:07 06/25/19 24 06/25/2023 drug scree n, urine EDDP (Methadone Metabolite) negati ve Not Available [facility] [address], [place], [address], 06/25/2023 14:00:07 06/25/19 24 06/25/2023 drug scree n, urine (MET) Methamphetam ine: negati ve Not Available [facility] [address], [place], [address], 06/25/2023 14:00:07 06/25/19 24 06/25/2023 drug scree n, urine MDMA: negati ve Not Available [facility] [address], [place], [address], 06/25/2023 14:00:07 06/25/19 24 06/25/2023 drug scree n, urine MTD (Methadone): negati ve Not Available [facility] [address], [place], [address], 06/25/2023 14:00:07 06/25/19 24 06/25/2023 drug scree n, urine [id number] (Opiate): positi ve Not Available [facility] [address], [place], [address], 06/25/2023 14:00:07 06/25/19 24 06/25/2023 drug scree n, urine OXY (Oxycodone): negati ve Not Available [facility] [address], [place], [address], 06/25/2023 14:00:07 06/25/19 24 06/25/2023 drug scree n, urine TCA: negati ve Not Available [facility] [address], [place], [address], 06/25/2023 14:00:07 06/25/19 24 06/25/2023 drug scree n, urine THC: positi ve Not Available [facility] [address], [place], [address], 06/25/2023 14:00:07 10/01/19 24 10/01/2023 drug scree n, urine Amphetamines : negati ve Not Available [facility] [address], [place], [address], 10/01/2023 14:21:36 10/01/19 24 10/01/2023 drug scree n, urine Barbiturates : negati ve Not Available [facility] [address], [place], [address], 10/01/2023 14:21:36 10/01/19 24 10/01/2023 drug scree n, urine BUP: negati ve Not Available [facility] [address], [place], [address], 10/01/2023 14:21:36 10/01/19 24 10/01/2023 drug scree n, urine Benzodiazepi rao: positi ve Not Available [facility] [address], [place], [address], 10/01/2023 14:21:36 10/01/19 24 10/01/2023 drug scree n, urine Cocaine: negati ve Not Available [facility] [address], [place], [address], 10/01/2023 14:21:36 10/01/19 24 10/01/2023 drug scree n, urine EDDP (Methadone Metabolite) negati ve Not Available [facility] [address], [place], [address], 10/01/2023 14:21:36 10/01/19 24 10/01/2023 drug scree n, urine (MET) Methamphetam ine: negati ve Not Available [facility] [address], [place], [address], 10/01/2023 14:21:36 10/01/19 24 10/01/2023 drug scree n, urine MDMA: negati ve Not Available [facility] [address], [place], [address], 10/01/2023 14:21:36 10/01/19 24 10/01/2023 drug scree n, urine MTD (Methadone): negati ve Not Available [facility] [address], [place], [address], 10/01/2023 14:21:36 10/01/19 24 10/01/2023 drug scree n, urine [id number] (Opiate): positi ve Not Available [facility] [address], [place], [address], 10/01/2023 14:21:36 10/01/19 24 10/01/2023 drug scree n, urine OXY (Oxycodone): negati ve Not Available [facility] [address], [place], [address], 10/01/2023 14:21:36 10/01/19 24 10/01/2023 drug scree n, urine TCA: positi ve Not Available [facility] [address], [place], [address], 10/01/2023 14:21:36 10/01/19 24 10/01/2023 drug scree n, urine THC: positi ve Not Available [facility] [address], [place], [address], 10/01/2023 14:21:36 10/01/19 24 10/01/2023 drug scree n, urine Temperature: 90 Not Available [facility] [address], [place], [address], 10/01/2023 14:21:36 10/15/19 24 10/15/2023 COMPL ETE BLOOD COUNT NO DIFF WBC 6.31 10_3/ uL 4.4-10 .8 normal Not Available [address] [place], [address] 10/15/2023 18:38:49 10/15/19 24 10/15/2023 COMPL ETE BLOOD COUNT NO DIFF RBC 3.88 10_6/ uL 3.93-5 .22 low Not Available [address] [place], [address] 10/15/2023 18:38:49 10/15/19 24 10/15/2023 COMPL ETE BLOOD COUNT NO DIFF HGB 12.4 g/dL 11.2-1 5.7 normal Not Available [address] [place], [address] 10/15/2023 18:38:49 10/15/19 24 10/15/2023 COMPL ETE BLOOD COUNT NO DIFF HCT 35.9 % 36.0-4 6.0 low Not Available [address] [place], [address] 10/15/2023 18:38:49 10/15/19 24 10/15/2023 COMPL ETE BLOOD COUNT NO DIFF MCV 93 fL 80-95 normal Not Available [address] [place], [address] 10/15/2023 18:38:49 10/15/19 24 10/15/2023 COMPL ETE BLOOD COUNT NO DIFF MCH 32.0 pg 27.0-3 3.0 normal Not Available [address] [place], [address] 10/15/2023 18:38:49 10/15/19 24 10/15/2023 COMPL ETE BLOOD COUNT NO DIFF MCHC 34.5 % 32.0-3 6.0 normal Not Available [address] [place], [address] 10/15/2023 18:38:49 10/15/19 24 10/15/2023 COMPL ETE BLOOD COUNT NO DIFF RDW 13.3 % 11.7-1 4.6 normal Not Available [address] [facility] [place], [address] 10/15/2023 18:38:49 10/15/19 24 10/15/2023 COMPL ETE BLOOD COUNT NO DIFF platelet count 244 10_3/ uL 130-40 0 normal Not Available [address] [facility] [place], [address] 10/15/2023 18:38:49 10/15/19 24 10/15/2023 COMPL ETE BLOOD COUNT NO DIFF MPV 10.9 fL 8.0-11 .0 normal Not Available [address] [facility] [place], [address] 10/15/2023 18:38:49 12/31/19 24 12/31/2023 urina lysis , dipst ick Leukocytes Negati ve Not Available [facility] [address], [place], [address], 12/31/2023 13:27:24 12/31/19 24 12/31/2023 urina lysis , dipst ick Nitrite negati ve Not Available [facility] [address], [place], [address], 12/31/2023 13:27:24 12/31/19 24 12/31/2023 urina lysis , dipst ick Urobilinogen .2 Not Available [facility] [address], [place], [address], 12/31/2023 13:27:24 12/31/19 24 12/31/2023 urina lysis , dipst ick Protein Trace Not Available [facility] [address], [place], [address], 12/31/2023 13:27:24 12/31/19 24 12/31/2023 urina lysis , dipst ick pH 6.0 Not Available [facility] [address], [place], [address], 12/31/2023 13:27:24 12/31/19 24 12/31/2023 urina lysis , dipst ick Blood Negati ve Not Available [facility] [address], [place], [address], 12/31/2023 13:27:24 12/31/19 24 12/31/2023 urina lysis , dipst ick Specific [place] 1.005 Not Available [facility] [address], [place], [address], 12/31/2023 13:27:24 12/31/19 24 12/31/2023 urina lysis , dipst ick Ketone Trace Not Available [facility] [address], [place], [address], 12/31/2023 13:27:24 12/31/19 24 12/31/2023 urina lysis , dipst ick Bilirubin Small Not Available [facility] [address], [place], [address], 12/31/2023 13:27:24 12/31/19 24 12/31/2023 urina lysis , dipst ick Glucose Negati ve Not Available [facility] [address], [place], [address], 12/31/2023 13:27:24 12/31/19 24 12/31/2023 urina lysis , dipst ick Appearance Clear Not Available [facility] [address], [place], [address], 12/31/2023 13:27:24 07/12/31/2023 urina lysis , dipst ick Color Dark Yellow Not Available [facility] [address], [place], [address], 12/31/2023 13:27:24 10/15/19 24 10/15/2023 elect rocar diogr am No observ ation record ed. [email or web address] Not Available 10/17/2023 13:08:50 10/16/19 24 10/15/2023 elect rocar diogr am No observ ation record ed. [email or web address] Not Available 10/17/2023 13:08:51 Result Notes None recorded. Problems Name Status Onset Date Resolution Date Notes Provider Name and Address Organization Details Recorded Time Mitral valve regurgitation Active 2012- mild-moderate MD Gina [address], [place], [address] , [facility] 4 07:45:55 Intolerance to lactose Active [address], [place], [address] , [facility] 4 07:47:41 Viral hepatitis C Active 2007 s/p Feroni 2015. 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 Undetected RNA 10/[address], [place], [address] , [facility] 4 07:53:29 Essential hypertension Active 2009 candesartan caused hyperkalemia MD [address]ina [address], [place], [address] , [facility] 4 07:43:55 Low back pain Active [address], [place], [address] , [facility] 4 07:47:57 History of clinical finding in subject Completed 200606/23/2023 hx of positive PPD MD [address]ina [address], [place], [address] , [facility] 4 07:47:26 Pain in finger Completed 201412/28/2014 12/23/2014 - Comments only - Alina Montenegro MD - will x-ray Problem Code: M79.646; Problem Code Type: ICD-10; Not Available [facility] 3 04:26:44 Nicotine dependence Active [address], [place], [address] , [facility] 4 07:44:52 Eczema Completed 201404/30/2015 04/15/2015 - Comments only - Alina Montenegro MD - Continue with steroid cream to patch on buttocks. Problem Code: L30.9; Problem Code Type: ICD-10; Not Available [facility] 3 04:26:44 Skin sensation disturbance Completed 201510/28/2015 10/21/2015 - Comments only - Alina Montenegro MD - I'm awaiting the note from neurosurgery. In the meantime, it is worth restarting her gabapentin, and perhaps trying to titrate the dose higher than in the past. She'll start with 100 mg and titrate over the next month to 300 mg 3 times daily. She has follow-up with me in mid November. Problem Code: R20.9; Problem Code Type: ICD-10; MD [address]ina [address], [place], [address] , [facility] 4 07:50:27 Localized eruption of skin Completed 201512/23/2015 11/17/2015 - Comments only - Alina Montenegro MD - has not responded to steroid cream, referral to dermatology. Problem Code: R21; Problem Code Type: ICD-10; Not Available [facility] 3 04:26:45 Gastroesophag eal reflux disease without esophagitis Active [address], [place], [address] , [facility] 4 07:44:04 Adult health examination Active [address], [address] 4 07:37:12 Dream anxiety disorder Active 2015 2016 prazosin trial not helpful MD Gina [address] Dr, [facility] [address] , [facility] 4 07:43:29 Nausea Active [address], [address] 4 07:44:58 Lung function testing abnormal Active 2016 decreased lung diffusion capacity- non communcating bullae on CT scan MD Gina M[address] Dr, [facility] [address] , [facility] 4 07:48:39 Vitamin D deficiency Active 2016 14.5 in 10/[address], [facility] [address] , [facility] 4 07:55:25 Right upper quadrant pain Active 201702/02/2020 has had extensive workup. May be due to back pain MD Gina M[address] Dr, [facility] [address] , [facility] 4 07:49:22 Generalized anxiety disorder Active [address], [facility] [address] , [facility] 4 07:44:23 Posttraumatic stress disorder Active [address], [place], [address] , [facility] 4 07:44:36 Screening mammography Completed 201806/23/2023 Problem Code: Z12.31; Problem Code Type: ICD-10; MD Gina [address], [facility] [address] , [facility] 4 07:49:27 Left side sciatica Active [address], [place] [address] , [facility] 4 07:47:51 Pain in left foot Active [address], [place] [address] , [facility] 4 07:44:44 Migraine Active [address], [place] [address] , [facility] 4 07:48:54 Hyperkalemia Completed 202206/23/2023 12/29/2022 - Comments only - Alina Montenegro MD - She has stopped the ARB about 10 days ago. She will need a repeat BMP in a few weeks. Problem Code: E87.5; Problem Code Type: ICD-10; MD Gina M[address] Dr, [facility] [address] , [facility] 4 07:47:34 Hemorrhage of rectum and anus Active 2022 did not tolerate prep for colonoscopy MD Gina M[address] Dr, [facility] [address] , [facility] 4 07:46:20 Blood in urine Completed 202006/23/2020 Problem Code: R31.9; Problem Code Type: ICD-10; Not Available [facility] 3 04:26:48 Breast composition Completed 202007/15/[address], [facility] [address] , [place] [facility]. 4 07:40:02 Disorder of bone and articular cartilage Completed 201002/28/2023 Problem Code: 733.90; Problem Code Type: ICD-9; Not Available [facility] 3 04:26:48 Epigastric pain Completed 202010/01/2020 Problem Code: R10.13; Problem Code Type: ICD-10; Not Available [facility] 3 04:26:48 Therapeutic drug monitoring assay Completed 201711/21/2017 Problem Code: Z51.81; Problem Code Type: ICD-10; Not Available [facility] 3 04:26:48 Mitral valve disorder Completed 201202/28/2023 Problem Code: 424.0; Problem Code Type: ICD-9; Not Available [facility] 3 04:26:48 Sciatica Completed Problem Code: 724.3; Problem Code Type: ICD-9; Not Available [facility] 3 04:26:49 Chronic pain Completed 200602/28/2023 03/18/2015 - Comments only - Alina Montenegro MD - I have renewed her narcotic pain medication. She will continue with physical therapy. She has claimed to the increased doses of benzodiazepin es have helped her pain. However, I am uncomfortable with the high dose of benzodiazepin es in combination with narcotics, and I told her that I plan to wean her back down to 1 mg twice daily. For now she can use up to 3 mg daily, at next visit we will cut her back to 2 mg daily. Problem Code: 338.29; Problem Code Type: ICD-9; Not Available [facility] 3 04:26:49 Chronic hepatitis C Completed 200702/28/2023 01/19/2015 - Comments only - Alina Montenegro MD - She has only 9 days left of her hepatitis C treatment. She is congratulated on completion. She has lab work as requested from her gastroenterol ogist to do over the next few months. She also needs an ultrasound, she needs to clarify whether this can be done at our local hospital, or whether it is a special scan requiring [facility] equipment. Problem Code: 070.54; Problem Code Type: ICD-9; Not Available [facility] 3 04:26:49 Chest pain Completed 202110/07/2021 Problem Code: R07.89; Problem Code Type: ICD-10; Not Available [facility] 3 04:26:50 Lactose intolerance Completed 200702/28/2023 Not Available [facility] 3 04:26:50 Abnormal weight gain Completed 201507/03/2016 Problem Code: R63.5; Problem Code Type: ICD-10; Not Available [facility] 3 04:26:50 Dizziness and giddiness Completed 201409/09/2018 Problem Code: R42; Problem Code Type: ICD-10; Not Available [facility] 3 04:26:50 Abdominal pain Completed 202006/23/2020 Problem Code: R10.9; Problem Code Type: ICD-10; Not Available [facility] 3 04:26:50 Headache Completed 201505/08/2016 Problem Code: R51; Problem Code Type: ICD-10; Not Available [facility] 3 04:26:51 History of injury Completed 202010/01/2020 Problem Code: Z87.828; Problem Code Type: ICD-10; Not Available [facility] 3 04:26:51 Anxiety disorder Completed 200602/28/2023 Not Available [facility] 3 04:26:51 Depressive disorder Completed 200603/18/2015 Not Available [facility] 3 04:26:51 [place]: positive Completed 200602/28/2023 Not Available [facility] 3 04:26:52 Nausea Completed 202010/01/2020 Problem Code: R11.0; Problem Code Type: ICD-10; ALINA MONTENEGRO MD [address], [place], [address] , [facility]. 4 07:44:58 Hypertensive disorder Completed 200902/28/2023 Not Available [facility] 3 04:26:52 Lumbago with sciatica Completed 200602/28/2023 01/12/2016 - Comments only - Alina Montenegro MD - Functionally improved recently, continue to use walker PRN, chronic narcotics are renewed for 4 weeks. Problem Code: M54.40; Problem Code Type: ICD-10; Not Available [facility] 3 04:26:52 Skin sensation disturbance Completed 201509/09/2018 Problem Code: R20.9; Problem Code Type: ICD-10; MD [address], [place], [address] , [facility] 4 07:50:27 Pain in lower limb Completed 201403/18/2015 Problem Code: M79.606; Problem Code Type: ICD-10; Not Available [facility] 3 04:26:53 Localized edema Completed 201509/09/2018 Problem Code: R60.0; Problem Code Type: ICD-10; Not Available [facility] 3 04:26:54 Fatigue Completed 202006/23/2020 Problem Code: R53.83; Problem Code Type: ICD-10; Not Available [facility] 3 04:26:54 Senile osteopenia Active 2017 remains in osteopenia range MD [address], [place], [address] , [facility]. 4 07:39:48 Paresthesia of lower extremity Active 2018 EMG 06/2023 at [facility]: negative radiculpathy, positive peripheral neuropathy MD [address], [place], [address] , [facility]. 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 Please review this document and add these problems to the patient's chart manually as needed. Problem Notes None recorded. Procedures Surgical History None recorded. Imaging Results Imaging Date Name Status LastModified by Organization Details LastModified Time 10/15/2023 electrocardiogram completed Informa tion not available 10/17/2023 13:08:50 10/15/2023 electrocardiogram completed Informa tion not available 10/17/2023 13:08:51 Procedure Notes None recorded. Medical Equipment None Reported. Allergies Allergen ID Allergen Name Allergen Category Reaction Reaction Severity Criticality Documentation Date Start Date Code Code System Note Provider Name and Address Organization Details Recorded Time 34643 adhesive tape environme nt,medica tion rash mild Not available 04/13/20232007 skin redne ss Aller gyRea ction : 'skin redne ss'; Not Available [facility] 3 16:26:23 Medications Name Sig Start Date Stop Date Status Note LastModified by Organization Details LastModified Time cyclobenz aprine 10 mg tablet Take 1 tab by mouth three times daily 11/11 completed Per [facility] discharg e Not Available Not Available Not Available fluconazo le 100 mg tablet 1 TAB DAILY 03/04 completed Not Available Not Available Not Available Estring 2 mg (7.5 mcg/24 hour) vaginal ring every three months 08/31 completed Not Available Not Available Not Available Neurontin 300 mg capsule Take 1 cap by mouth twice daily- can titrate up to 600 mg twice a day. 2016 active Not Available Not Available Not Avai lable lactulose 10 gram/15 mL oral syrup 15-30ML QHS 01/30 completed Not Available Not Available Not Available Celexa 10 mg tablet Take 1 tab by mouth daily 2016 active Not Available Not Available Not Avai lable atorvasta tin 10 mg tablet Take 1 tablet by mouth every evening 2023 active Not Available Not Available Not Avai lable azithromy alisson 250 mg tablet 1kit daily 02/23 completed Not Available Not Available Not Available candesart an 4 mg tablet Take 1 tablet by mouth once a day stop HCTZ 12/20 completed Not Available Not Available Not Available atenolol 100 mg tablet Take 1 tablet by mouth once a day 2023 active Not Available Not Available Not Avai lable OxyContin 20 mg tablet,ex tended release 1 TAB tid 09/16 completed Not Available Not Available Not Available hydrocodo ne 5 mg-acetam inophen 325 mg tablet 1 tablet as needed Orally TID, PRN, MDD3 for post op pain 3 days 12/30 completed Not Available Not Available Not Available prazosin 1 mg capsule take one at night to help with nightmar es. May increase to 2 at night , watch for dizzines s. 07/03 completed Not Available Not Available Not Available promethaz ine 25 mg rectal supposito ry 1 [place] q 12 hours prn N/V 07/16 completed Not Available Not Available Not Available Paxil 20 mg tablet 1 TAB daily 10/18 completed Medicati onName: 'PAXIL 20MG'; Not Available Not Available Not Available lisinopri l 20 mg tablet Take 1 tab by mouth daily 02/01 completed Not Available Not Available Not Available Medrol (Simoen) 4 mg tablets in a dose pack 03/03 completed Not Available Not Available Not Available prednison e 20 mg tablet Take 2 Tablets by mouth daily for 5 days. 06/23 completed Not Available Not Available Not Available Prilosec 20 mg capsule,d elayed release 1 CAP bid 05/17 completed Not Available Not Available Not Available atenolol 25 mg tablet Take 1 by mouth daily 07/03 completed Not Available Not Available Not Available clobetaso l 0.05 % topical cream Apply to skin twice a day 06/23 completed Not Available Not Available Not Available amlodipin e 2.5 mg tablet Take 1 tablet by mouth once a day 2023 active Not Available Not Available Not Avai lable Paxil 40 mg tablet Take 1 tab daily 07/03 completed Not Available Not Available Not Available morphine ER 30 mg tablet,ex tended release 1 tablet by mouth once a day 2023 active Not Available Not Available Not Avai lable sulfameth oxazole 800 mg-trimet hoprim 160 mg tablet 1 tablet Orally twice a day- Start day prior to surgery, hold day of, resume x5 days post op 6 days 12/30 completed Not Available Not Available Not Available omeprazol e 40 mg capsule,d elayed release Take 1 tab by mouth daily. active Not Available Not Available No t Available Nicotrol 10 mg inhalatio n cartridge Inhale 10 mg using inhaler as needed 06/23 completed Not Available Not Available Not Available acetamino phen 500 mg tablet Take2 tab by mouth every 8 hours as needed 11/11 completed Per [facility] discharg [facility] Not Available Not Available Not Available triamcino lone acetonide 0.1 % topical cream CREAM twice daily 10/28 completed Not Available Not Available Not Available Prevacid 30 mg capsule,d elayed release Take 1 capsule by mouth once a day 10/07 completed Not Available Not Available Not Available MS Contin 15 mg tablet,ex tended release Take 1 by mouth daily in combinat ion with 30 mg BID. Fill at [facility] only. 03/08 completed Not Available Not Available Not Available Serevent Diskus 50 mcg/dose powder for inhalatio n Inhale 1 puff by mouth every 12 hours. 09/09 completed PA: 08/30/16- 08/30/17 Not Available Not Available Not Available Zofran 4 mg tablet one .BID-TID 10/24 completed Not Available Not Available Not Available amitripty line 25 mg tablet TAKE ONE (1) TABLET BY MOUTH EVERY EVENING 06/25 completed Not Available Not Available Not Available omeprazol e 10 mg capsule,d elayed release One capsule by mouth daily 2017 active Not Available Not Available Not Avai lable gabapenti n 800 mg tablet Take 2 tablets BID 2016 active Not Available Not Available Not Avai lable Celexa 20 mg tablet Take 1 tablet by mouth daily 10/10 completed Not Available Not Available Not Available amitripty line 10 mg tablet Take 1 tablet every day by oral route in the evening. 2023 active Not Available Not Available Not Avai lable Lasix 20 mg tablet 1 tab daily, hold hctz while taking 09/09 completed hold HCTZ while taking lasix Not Available Not Available Not Available triamcino lone acetonide 0.1 % topical ointment Apply on dry spots on body for eczema 09/[address] Sandoval Not Available Not Available Not Available Nicorette 4 mg gum Chew 1 06/23 completed Not Available Not Available Not Available lisinopri l 10 mg tablet Take 1 tab by mouth daily 10/01 completed Not Available Not Available Not Available lidocaine 5 % topical patch One topical patch every 24 hours 11/11 completed Per [facility] discharg [facility] Not Available Not Available Not Available promethaz ine 25 mg tablet 1 tablet by mouth every six hours as needed 06/25 completed Not Available Not Available Not Available hydrochlo rothiazid e 12.5 mg capsule TAKE ONE (1) CAPSULE BY MOUTH ONE TIME EVERY DAY 06/23 completed Not Available Not Available Not Available Synthroid 75 mcg tablet 1 TAB daily 10/31 completed Not Available Not Available Not Available Synthroid 50 mcg tablet 1 TAB daily 12/19 completed Not Available Not Available Not Available folic acid 1 mg tablet Take 1 tablet by mouth once a day 2023 active Not Available Not Available Not Avai lable hydrocort isone 2.5 % topical cream apply to affected area twice daily prn 09/09 completed Not Available Not Available Not Available lisinopri l 5 mg tablet Take 1/2 tablet by mouth once a day 08/12 completed Not Available Not Available Not Available hydrochlo rothiazid e 25 mg tablet 1TAB daily 08/08 completed Not Available Not Available Not Available gabapenti n 100 mg capsule start at 100mg at HS, increasi ng to of 300mg TID as tolerate d 2015 active Not Available Not Available Not Avai lable lorazepam 1 mg tablet 2 tablets twice a day. Fill only at [facility] [address] Maximum daily dose of 4 mg. May fill [id number] 2023 active Not Available Not Available Not Avai lable Nasonex 50 mcg/actua tion Renick 2 sprays daily 2012 active Not Available Not Available Not Avai lable ibuprofen 600 mg tablet Take 1 tab by mouth four times daily as needed 11/11 completed Per [facility] discharg [facility] Not Available Not Available Not Available HM Vitamin C 1000 mg tablet 1 qd 03/20 completed Not Available Not Available Not Available Vitamin D2 1,250 mcg (50,000 unit) capsule Take one capsule by mouth WEEKLY for 12 weeks 01/07 completed Per [facility] discharg [facility] Not Available Not Available Not Available morphine 15 mg immediate release tablet take 1 by mouth twice a day. Fill at [facility]. Max daily dose 30 mg 10/01 completed Not Available Not Available Not Available Paxil 10 mg tablet 1 TAB QAM 05/31 completed Not Available Not Available Not Available ondansetr on 4 mg disintegr ating tablet Take one under the tongue every 6 hours as needed for nausea 07/19 completed Not Available Not Available Not Available fluticaso ne propionat e 50 mcg/actua tion nasal spray,wander pension 2 spray into both nostrils once a day 06/25 completed Not Available Not Available Not Available lisinopri l 2.5 mg tablet Take 1 tablet by mouth once a day 12/30 completed Not Available Not Available Not Available Ambien 5 mg tablet 1 at bedtime 07/21 completed Not Available Not Available Not Available atenolol 50 mg tablet Take 1 tab by mouth daily 2016 active Not Available Not Available Not Avai lable amoxicill in 875 mg-potass ium clavulana te 125 mg tablet Take 1 Tablet by mouth 2 times daily for 7 days. 06/23 completed Not Available Not Available Not Available Vitamin B-12 1,000 mcg tablet 1 tablet by mouth once a day 2023 active Per [facility] discharg [facility] Not Available Not Available Not Available Sonata 10 mg capsule 1 TAB QHS 10/24 completed Not Available Not Available Not Available Multivita min 50 Plus tablet Take 1 tablet every day by oral route. active Not Available Not Available No t Available Compressi on Stockings 03/20 completed Not Available Not Available Not Available Spiriva with [employer] r 18 mcg and inhalatio n capsules Inhale entire contents from 1 capsule daily 09/09 completed Not Available Not Available Not Available nitrofura ntoin monohydra te/macroc rystals 100 mg capsule TAKE ONE (1) CAPSULE BY MOUTH EVERY 12 HOURS FOR FIVE DAYS 12/30 completed Not Available Not Available Not Available duloxetin e 20 mg capsule,d elayed release Take 1 by mouth daily 03/14 completed Not Available Not Available Not Available duloxetin e 30 mg capsule,d elayed release Take 1 by mouth daily 05/30 completed Not Available Not Available Not Available duloxetin e 60 mg capsule,d elayed release Take 1 capsule by mouth once a day 2023 active Not Available Not Available Not Avai lable gabapenti n 100 mg tablet 1-3 tabs three times daily 06/29 completed Not Available Not Available Not Available Albuterol Sulfate HFA 90 mcg/Actua tion aerosol inhaler 2 PUFFS .qid wheezing /SOB 2014 active Not Available Not Available Not Avai lable pregabali n 50 mg capsule 1CAP TID 12/20 completed Not Available Not Available Not Available pregabali n 150 mg capsule Take 1 capsule by mouth three times a day active Not Available Not Available No t Available Lyrica 100 mg capsule 1 Capsule three times a day 05/30 completed Not Available Not Available Not Available milk thistle 1CAP daily 07/27 completed Not Available Not Available Not Available vitamin E 1 qd 03/20 completed Not Available Not Available Not Available Nasonex 2 sprays q pm 2012 active Not Available Not Available Not Avai lable Bactrim DS 1TAB twice daily 04/28 completed Not Available Not Available Not Available Ambien 1 at bedtime 11/25 completed Not Available Not Available Not Available ProAir HFA 90 mcg/actua tion aerosol inhaler 2 puff four times a day as needed 06/25 completed Not Available Not Available Not Available OxyContin 30 mg tablet,ex tended release 1 .BID-TID 05/05 completed Not Available Not Available Not Available omeprazol e 20 mg tablet,de layed release Take 1 by mouth daily 2013 active Not Available Not Available Not Avai lable Kapidex 60 mg capsule, delayed release one qd 11/11 completed Not Available Not Available Not Available Vagifem 10 mcg vaginal tablet 1tab TWICE WEEKLY 09/06 completed Not Available Not Available Not Available Nicorette 4 mg buccal lozenge 1 pcs PRN, max 5 per day. 09/22 completed Not Available Not Available Not Available Suprep Bowel Prep Kit 17.5 gram-3.13 gram-1.6 gram oral solution Please follow instruct ions provided by GI office. 01/20 /2024 completed Not Available Not Available Not Available Vitamin D3 50 mcg (2,000 unit) capsule 1 tablet by mouth once a day 06/25 completed Not Available Not Available Not Available Systane (PF) 07/01 completed Not Available Not Available Not Available Anoro Ellipta 62.5 mcg-25 mcg/actua tion powder for inhalatio n 1 inhalati on by mouth once daily 08/28 completed Not Available Not Available Not Available Harvoni 90 mg-400 mg tablet 1 tab daily 04/14 completed Not Available Not Available Not Available Stiolto Respimat 2.5 mcg-2.5 mcg/actua tion solution for inhalatio n Inhale 2 puff as directed once a day active Not Available Not Available No t Available Narcan 4 mg/actuat ion nasal spray 1 spray into both nostrils as needed 2020 active Not Available Not Available Not Avai lable Vitals Date Recorded Body height Body mass index (BMI) Body weight Body temperature Respiratory rate Oxygen saturation Oxygen saturation in Arterial blood by Pulse oximetry Heart rate Systolic blood pressure Diastolic blood pressure Provider Name and Address Organization Details Last Updated DateTime 4 162.56 cm 22.8 kg/m2 44796.7 9 g 97.7 [degF] 20 /min 97 % 97 % 102 /min 124 mm[Hg] 78 mm[Hg] ROX KANG LPN [facility] 4 13:37:09 Date Recorded Body height Body mass index (BMI) Body weight Body temperature Oxygen saturation Oxygen saturation in Arterial blood by Pulse oximetry Respiratory rate Heart rate Systolic blood pressure Diastolic blood pressure Provider Name and Address Organization Details Last Updated DateTime 4 162.56 cm 23.3 kg/m2 97120.5 6 g 97.5 [degF] 96 % 96 % 16 /min 86 /min 128 mm[Hg] 88 mm[Hg] ROX KANG LPN [facility] 4 13:21:51 Date Recorded Body height Body mass index (BMI) Body weight Body temperature Respiratory rate Oxygen saturation Oxygen saturation in Arterial blood by Pulse oximetry Heart rate Systolic blood pressure Diastolic blood pressure Provider Name and Address Organization Details Last Updated DateTime 162.56 cm 23.5 kg/m2 74444.1 5 g 97.7 [degF] 16 /min 97 % 97 % 80 /min 118 mm[Hg] 80 mm[Hg] ROX KANG LPN [facility] 11:01:06 Date Recorded Body height Body mass index (BMI) Body weight Body temperature Oxygen saturation Oxygen saturation in Arterial blood by Pulse oximetry Heart rate Respiratory rate Systolic blood pressure Diastolic blood pressure Provider Name and Address Organization Details Last Updated DateTime 162.56 cm 23.5 kg/m2 62048.1 5 g 98.1 [degF] 97 % 97 % 84 /min 18 /min 128 mm[Hg] 90 mm[Hg] ROX KANG LPN [facility] 13:07:45 Social History Question Answer Notes LastModified by Organizat ion Details LastModified Time Tobacco Smoking Status Current Every Day Smoker ROX KANG LPN [facility] 06/25/2023 13:25:54 1) Date Of Last VPMS Check? 12/31/2023 Information not available 12/31/2023 2) VPMS Findings No Concerns Informa tion not available 12/31/2023 Would You Say That, In General, Your Health Is Fair Information not available 12/31/2023 How Often Does Anyone, Including Family, Physically Hurt You? Never Information not available 12/31/2023 How Often Does Anyone, Including Family, Insult Or Talk Down To You? Rarely Information no t available 12/31/2023 How Often Does Anyone, Including Family, Threaten You With Harm? Never Information not available 12/31/2023 How Often Does Anyone, Including Family, Scream Or Curse At You? Rarely Information not available 12/31/2023 Within The Past 12 Months, You Worried That Your Food Would Run Out Before You Got Money To Buy More. Never True Information n ot available 12/31/2023 Within The Past 12 Months, The Food You Bought Just Didn't Last And You Didn't Have Money To Get More. Sometimes True Information not available 12/31/2023 How Hard Is It For You To Pay For The Very Basics Like Food, Housing, Medical Care, And Heating? Would You Say It Is: Not Hard At All Information not available 12/31/2023 In The Past 12 Months, Has Lack Of Reliable Transportation Kept You From Medical Appointments, Meetings, Work Or From Getting Things Needed For Daily Living? No Information not available 12/31/2023 What Is Your Housing Situation Today? I Have Housing. Information not available 12/31/2023 How Often In The Past Year Have You Used Marijuana (including Smoking, Vaping, Dabbing, Or Edibles)? 4 Or More Times Per Week Information not available 12/31/2023 How Often In The Past Year Have You Used Prescription Medications That Were Not Prescribed To You? Never Information n ot available 12/31/2023 How Often In The Past Year Have You Taken Your Own Prescription Medication More Than The Way It Was Prescribed Or For Different Reasons Than Its Intended Purpose? Never Information no t available 12/31/2023 How Often In The Past Year Have You Used Other Drugs (for Example, Heroin, Cocaine, Meth, Salvia, Inhalants)? Never Information not available 12/31/2023 Have You Ever Used IV Drugs? No Information not available 12/31/2023 Date Of Most Recent SBINS 12/31/2023 Information not available 12/31/2023 What Was The Date Of Your Most Recent Tobacco Screening? 12/31/2023 Information not available 12/31/2023 How Much Tobacco Do You Smoke? 0.25 PPD Information not available 06/25/2023 Has Tobacco Cessation Counseling Been Provided? Yes Information not available 06/25/2023 On What Date Was Tobacco Cessation Counseling Provided? 12/31/2023 Information not available 12/31/2023 Do You Or Have You Ever Used Any Other Forms Of Tobacco Or Nicotine? No Information not available 06/25/2023 Sex: Female Functional Status None recorded. Mental Status None recorded. Family History Relationship Description Onset Age of this Age Resolved Age Notes Mother Family history of Respiratory disease Notes:*Problem: Mother decea sed 2000 from lung scarring. Dad from emphysema. One brother dec from asbestos. One sister dec. on 08/07 of lung disease (? asbestos). sister with HTN Medical History No medical history recorded. Gynecological HistoryNo gynecological history recorded. Obstetrics History GPAL:G 0 P 0 0 0 0 Immunizations Vaccine Type Date Status Provider Name and Address Organization Details Recorded Time Td (adult), 2 Lf tetanus toxoid, preservative free, adsorbed 10/19/2017 completed Not Available [facility] 06/09/2023 14:22:23 Tdap 04/07/2008 completed Not Available [facility] 14:22:22 zoster live 02/28/2017 completed Not Available [facility] 06/09/2023 14:22:23 Novel [id number], all formulations 07/05/2009 completed Not Available [facility] 06/09/2023 14:22:23 Influenza, split virus, trivalent, preservative 02/16/2016 completed Not Available [facility] 06/09/2023 14:22:23 Influenza, split virus, trivalent, preservative 02/18/2015 completed Not Available [facility] 06/09/2023 14:22:23 Influenza, split virus, quadrivalent, PF 02/24/2019 completed Not Available [facility] 06/09/2023 14:22:23 Influenza, split virus, quadrivalent, PF 03/08/2020 completed Not Available [facility] 06/09/2023 14:22:23 Influenza, split virus, quadrivalent, PF 04/11/2021 completed Not Available [facility] 06/09/2023 14:22:23 zoster recombinant 08/12/[address] [facility] 06/09/2023 14:22:22 zoster recombinant 11/04/[address] [facility] [place] 06/09/2023 14:22:22 Influenza, high-dose, quadrivalent, PF 03/23/2022 completed Not Available [facility] 06/09/2023 14:22:22 COVID-19, mRNA, LNP-S, PF, 100 mcg/0.5mL dose or 50 mcg/0.25mL dose 09/02/2020 completed Not Available [facility] 06/09/2023 14:22:22 COVID-19, mRNA, LNP-S, PF, 100 mcg/0.5mL dose or 50 mcg/0.25mL dose 09/30/2020 completed Not Available [facility] 06/09/2023 14:22:22 COVID-19, mRNA, LNP-S, PF, 100 mcg/0.5mL dose or 50 mcg/0.25mL dose 10/07/2021 completed Not Available [facility] 06/09/2023 14:22:22 COVID-19, mRNA, LNP-S, PF, 100 mcg/0.5mL dose or 50 mcg/0.25mL dose 04/11/2021 completed Not Available [facility] 06/09/2023 14:22:22 Pneumococcal conjugate PCV20, polysaccharide [id number] conjugate, adjuvant, PF 03/23/2022 completed Not Available [facility] 06/09/2023 14:22:22 COVID-19, mRNA, LNP-S, bivalent, PF, 50 mcg/0.5 mL or 25mcg/0.25 mL dose 04/01/2022 completed Not Available [facility] 06/09/19 14:22:22 pneumococcal polysaccharide PPV23 08/04/2009 completed Not Available [facility] 2023 14:22:22 Hep B, unspecified formulation 12/09/2008 completed Not Available [facility] 06/09/2023 14:22:23 Hep B, unspecified formulation 04/22/2008 completed Not Available [facility] 06/09/2023 14:22:23 Hep B, unspecified formulation 06/03/2008 completed Not Available [facility] 06/09/2023 14:22:23 Hep A, unspecified formulation 12/29/2008 completed Not Available [facility] 06/09/2023 14:22:23 Hep A, unspecified formulation 04/22/2008 completed Not Available [facility] 06/09/2023 14:22:23 Hep A, unspecified formulation 06/03/2008 completed Not Available [facility] 06/09/2023 14:22:23 influenza, unspecified formulation 06/28/2006 completed Not Available [facility] 06/09/2023 14:22:22 influenza, unspecified formulation 01/30/2011 completed Not Available [facility] 06/09/2023 14:22:22 influenza, unspecified formulation 02/14/2012 completed Not Available [facility] 06/09/2023 14:22:22 influenza, unspecified formulation 02/25/2008 completed Not Available [facility] 06/09/2023 14:22:22 influenza, unspecified formulation 02/24/2009 completed Not Available [facility] 06/09/2023 14:22:22 influenza, unspecified formulation 02/24/2013 completed Not Available [facility] 06/09/2023 14:22:22 influenza, unspecified formulation 03/13/2014 completed Not Available [facility] 06/09/2023 14:22:22 influenza, unspecified formulation 03/20/2007 completed Not Available [facility] 06/09/2023 14:22:22 influenza, unspecified formulation 03/21/2010 completed Not Available [facility] 06/09/2023 14:22:22 COVID-19, mRNA, LNP-S, PF, 50 mcg/0.5 mL 04/11/2023 completed [facility]AN BONILLA, [facility] 06/25/2023 15:21:19 influenza, unspecified formulation 04/11/2023 completed KARAN BONILLA, [facility] 06/25/2023 15:24:12 Past Encounters Encounter ID Performer Location Encounter Start Date Encounter Closed Date Diagnosis/Indication Diagnosis SNOMED-CT Code [id number] ALINA MONTENEGRO MD [facility] [place] [address] 06/25/2023 13:12:57 06/25/2023 14:33:37 Generalized anxiety disorder 69402408 Low back pain 449648062 Neuropathy 037264763 Gastroesop hageal reflux disease without esophagitis 355250439 [id number] ALINA MONTENEGRO MD [facility] [place] [address] 10/01/2023 12:54:48 10/01/2023 14:26:15 Chronic low back pain 957467408 Generalize d anxiety disorder 97991938 Essential hypertension 52605450 [id number] ALINA MONTENEGRO MD [facility] [place] [address] 10/15/2023 09:39:51 10/15/2023 12:05:10 Pre-surgery evaluation 845659046 Benign ess ential hypertension 3524672 [id number] [facility] [address] [place] [address] 12/31/2023 12:48:09 12/31/2023 14:16:33 Generalized anxiety disorder 19521623 Chronic low back pain 27 6505867 Screening for malignant neoplasm of colon 502151999 Adult heal th examination 695655389 Dysuria 10955540 Cigarette smoker 9488408 7 Osteopenia 628109210 Essential hypertension 14870108 Vaginitis 17899061 Neuropathy 673758893 Benign ess ential hypertension 1563157 Hyperlipidemia 89288907 Anxiety 87837190 Folic acid deficiency 19 6544609 Left side sciatica 85606 [id number] 4 Vitamin B deficiency 479 57392 Health Concerns Section Related Observation LastModified by Organization Detai ls LastModified Time None Recorded Concern Status LastModified by Organization Details LastModified Time None Recorded Advance Directives Directive None Recorded Payers Encounter Date Sequence Insurance Name Policy Number Policy Saravia Covered Member ID Saravia Member ID Guarantor Name 06/25/2023 1 [place] [employer] Danielle A Charles [id number] Danielle A Charles 06/25/2023 2 [facility] ([facility]ICA[facility] Danielle A Charles [id number] Danielle A Charles 10/01/2023 1 [place] [employer] Danielle A Charles [id number] Danielle A Charles 10/01/2023 2 [facility] ([facility]ICA[facility] Danielle A Charles [id number] Danielle A Charles 10/15/2023 1 [facility] (MEDICARE REPLACEMENT/A DVANTAGE - PPO) [id number] Danielle A Charles [id number] Danielle A Charles Notes Date Note Type Note Provider Name and Address Organization Details Recorded Time 06/25/2023 text/html HPI Notes: Has n ot filled amitriptyline since November She recently saw at [facility] both neurology, with EMG done, and the spine clinic. [place] symptoms were more consistent with neuropathy or her brown ashly cervical injury than any lumbar radiculopathy. They suggested some labs for polyneuropathy, only TSH was completed (not enough blood noted). They also suggested referral to the [facility]. She has an appointment with them tomorrow. She says that she has been taking the pregabalin 450 mg all in the morning all at once, and takes lorazepam 2 mg first thing in the morning. Does not bother to take the 3rd one in the afternoon. She had a fall about 3 months ago, seemed okay that day, but the next day she felt sore everywhere, and noted a big bruise over her right flank. Still has that burning the right flank into the right groin. No dysuria and no blood in her urine. Left foot burning has been worse the last 3 months. Has had for many years, but just worse later. It is her whole left leg, and also burning in the left arm. She says that she is just beside herself with discomfort and frustration. Feels that no one cares or is able to help her. She is sick of taking so many pills. Has not been taking the amitrtiptilline. She was seen in the ER 06/12/2023 and was prescribed some prednisone, which made her feel worse, with headache, so she only took two doses. HTN- she is only taking the atenolol, perhaps takes qoday, states BP has been good a home, if anything was low, has a bottle of HCTZ but did not take it. And having headaches every day- still has some benefit from Goodies. She has had more heart burn lately, used omeprazole 10-40 mg in the past. ALINA MONTENEGRO MD [address], [place], [address], [facility]. 06/25/2023 20:04:13 10/01/2023 text/html HPI Notes: Here for follow up of multiple problems as noted below: Chronic pain- has been seen at the pain clinic- did a trial of stimulator- When she had the stimulator trial for a week on, it did help some with the burning in her leg and her buttocks, and also helped with the left arm, but the left foot felt the same. She does not have the implant yet. Foot burning remains very uncomfortable. She hopes she can wean her lorazepam and or morphine if she gets the stimulator placed. From last visit in June: Try taking the pregabalin three times per day rather than all at once. She tried that and it did not make any difference, so she just takes it all in the morning, does not feel too sleepy. Try taking the lorazepam 2 mg in the am and 2 mg in the afternoon to see if that helps. That does seem to help a bit with the burning. Takes the morphine first thing in the morning. Meds ease the burning just a bit. Restart the AMITRIPTYLINE 10 mg- can take up to 30 mg at bedtime- can help with nerve burning pain. She is taking just 10 mg, and she is sleeping at night. For heart burn, omeprazole 40 mg best to take 30 minutes before dinner. Heart burn is better, now still occasional symptoms of acid reflux only. She had a funny feeling in right breast for a few days, it is gone now. [place] like she had a marble in the axilla, but that is gone. She has an appt for mammogram in January. She wants a walker with big wheels that she can take out and use in the sand for the beach or into a park, or make it over cracks and over sidewalks. PT suggested that she use a walker. If she tries to walk without the walker she can not go as far as her back starts to be painful. She also needs a seat as she sometimes gets too tired and needs to sit down. She has been taking both the amlodipine and The atenolol for blood pressure control lately. ALINA MONTENEGRO MD [address], [place], [address], [facility]. 10/01/2023 17:53:11 10/15/2023 text/html HPI Notes: Surge ry to be performed by Dr Dixon on 10/22/2023 Lumbar spinal cord stimulator implant for her chronic back pain and sciatica. She just heard that her insurance may not cover, she is devastated as she has had so much hope that she would have benefit, as her quality of life is very poor with her current level of pain. HTN- Ran out of atenolol, BP tends to be good when she takes that in combination with the amlodipine, adequate control even without those meds for the last few days. GERD-controlled with her PPI. Anxiety- on high dose klonopin which provides benefit to her pain as well as her anxiety. Chronic narcotic use- was on over 100 mg MME for years, now takes just 30 mg of morphine daily. Aware of dangers of combination of narcotics and benzodiazepines. COPD/abnormal PFTs- stiolto helpful her to clear mucous plugs. No significant AGOSTO. Normal room air oxygen levels. Mitral valve regurgitation- no symptoms of heart failure, stable by ECHO 2021. She is able to walk on the flat and perform chores at home, she is limited in her activities by pain rather than SOB. ALINA MONTENEGRO MD [address], [place], [address], [place] [facility]. 10/15/2023 12:28:30 OBGyn Episode No OBEpisode recorded.
--- OUTSIDE RECORDS SUMMARY | 2023-12-31 16:45 | XMS_ITS | Referral Summary ---
Author Organization [facility] Address [address] [place] [id number] Care Team Providers Care Terra Cotta Mason Name Role Phone Alina Montenegro MD Primary Care Provider [phone] Encounters Date Type Department Care Team Description 12/31/2023 Transcribe Orders [facility] Alina Olivares MD Other specified disorders of bone density and structure, unspecified site (Primary Dx); Essential (primary) hypertension 12/11/2023 14:34 EDT - 12/11/2023 15:34 EDT Hospital Encounter [facility] [place] [id number] [place] [address] Jorge Layton MD Dysuria (Primary Dx) Discharge Disposition: Home or Self Care 10/15/2023 Orders Only [facility] Shannan Jesus MA Preop examination 10/15/2023 15:00 EDT - 10/15/2023 23:59 EDT Hospital Encounter [facility] Non-Invasive Cardiology - [facility] [address] [place] [address] Estrada Weber MD Discharge Disposition: Home or Self Care 10/15/2023 Transcribe Orders [facility] Alina Olivares MD Other specified pre-operative examination (Primary Dx); Preop examination from Last 3 Months Allergies Active Allergy Reactions Criticality Noted Date Comments Adhesive Tape-Silicones 07/12/2023 Medications Medication Sig Dispensed Refills Start Date End Date Status atenoloL (TENORMIN) 100 mg tablet Take 1 Tablet by mouth daily. 06/17/2021 Active morphine (MS CONTIN) 30 mg CR tablet Take 1 Tablet by mouth every 12 hours. Active tiotropium-olodat Salvador (STIOLTO RESPIMAT) 2.5-2.5 mcg/actuation inhaler Inhale as directed daily. Active amitriptyline (ELAVIL) 25 mg tablet Take 25 mg by mouth daily. Active LORazepam (ATIVAN) 1 mg tablet Take 1 Tablet by mouth every 4 hours as needed. Active atorvastatin (LIPITOR) 10 mg tablet Take 1 Tablet by mouth daily. Active pregabalin (LYRICA) 150 mg capsule Take 1 Capsule by mouth 2 times daily. Active DULoxetine (CYMBALTA) 60 mg capsule Take 1 Capsule by mouth daily. Active albuterol 90 mcg/actuation inhaler Inhale 180 mcg as directed every 4 hours. Active promethazine (PHENERGAN) 25 mg tablet Take 25 mg by mouth every 4 hours. Active naloxone (NARCAN) 4 mg/actuation nasal spray 0.1 mL by nasal route as needed for Opioid Reversal. Active Cholecalciferol, Vitamin D3, 50 mcg capsule Take 1 Capsule by mouth daily. Active cyanocobalamin (VITAMIN B-12) 1,000 mcg tablet Take 1 Tablet by mouth daily. Active folic acid (FOLVITE) 1 mg tablet Take 1 Tablet by mouth daily. Active clobetasoL (TEMOVATE) 0.05 % cream Apply topically 2 times daily. Active fosinopriL-hydroc hlorothiazide (MONOPRIL-HCT) 10-12.5 mg per tablet Take 1 Tablet by mouth daily. Active candesartan (ATACAND) 4 mg tablet Take 4 mg by mouth daily. Active sodium,potassium, mag sulfates (SUPREP BOWEL PREP) kit Please follow instructions provided by GI office. 1 Kit 11/08/2022 Active Additional Information Patient not taking.Reported on 06/18/2023 nitrofurantoin, macrocrystal-mono hydrate, (MACROBID) 100 mg capsule Take 1 Capsule by mouth every 12 hours for 5 days. 10 Capsule 12/11/2023 12/16/2023 Active Problems Patient Care Coordination No te Formatting of this note migh t be different from the original. Paula Robles 11/06/2022 10:37 PATIENT CAME TO [facility] TO SCHEDULE A COLOSCOPY APPOINTMENT WITH [facility], DID NOT SEE ANY APPOINTMENTS OR INFORMATION IN NOTES AND ENCOUNTERS ABOUT AN COLOSCOPY APPOINTMENT, SPOKE TO TIFFANY/DR MONTENEGRO OFFICE ABOUT STATUS OF REFERRAL TO [facility] FOR COLOSCOPY AND SENT FAX TO [phone] ON 11.01.2022 [facility], SPOKE TO GASTROENTEROLOGY TRENCH DIGGER HELPER STATED NO REFERRAL RECEIVED, SPOKE TO [facility]/GASTROENTEROLOGY STATED FAX NUMBERS ARE [phone] OR [phone], INFORMED TIFFANY/DR MONTENEGRO TO REFAX REFERRAL TO ONE OF THESE 2 FAX NUMBERS, SPOKE TO [facility]/GASTROENTEROLOGY PROCEDURE AREA AND STATES RECEIVED FAX TODAY AND ASKED PATIENT TO FOLLOW UP TOMORROW FOR STATUS, PROVIDED PATIENT WITH PHONE NUMBERS TO GASTROENTEROLOGY MAIN NUMBER AND USE OPTION 2 FOR PROCEDURE AREA WHO RECEIVES REFERRALS, ALSO SUGGESTED PATIENT CONTACT PCP DR MONTENEGRO OFFICE WITH SYMPTOMS, CONCERNS AND GUIDANCE UNTIL APPOINTMENT DAY 2021 - [place] Medicaid ACO per web/trace# [phone] Brayan Mercedes 08/17/2021 10:37 Patient has declined to give permission for [facility] to verbally discuss any information with anyone other than the patient. Permission remains in effect until the patient elects to revoke it. Problem Noted Date Diagnosed Date Left leg pain 05/30/2023 Social History Tobacco Use Types Packs/Day Years Used Date Smoking Tobacco: Every Day Cigarettes 0.3 21 Smokeless Tobacco: Never Alcohol Use Standard Drinks/Week Comments Not Currently 0 (1 standard drink = 0.6 oz pur e alcohol) PHQ-2 Answer Date Recorded PHQ-2 SUBTOTAL 0 12/11/2023 Interpersonal Safety Answer Date Record ed Physically Hurt Never 01/04/2020 Verbally Threaten Not on file 01/04/2020 Sex and Gender Information Value Date Recorded Sex Assigned at Not on file Gender Identity Female 08/17/2021 11:20 EDT Sexual Orientation Not on file Last Filed Vital Signs Vital Sign Reading Time Taken Comments Blood Pressure 129/60 12/11/2023 1432 EDT Pulse 73 12/11/2023 1432 EDT Temperature 35.9 ??C (96.6 ??F) 12/11/2023 1432 EDT Respiratory Rate 16 12/11/2023 1432 EDT Oxygen Saturation 96% 12/11/2023 1432 EDT Inhaled Oxygen Concentration - - Weight 59 kg (130 lb) 06/11/2023 1411 EST Height 162.6 cm (5' 4) 06/11/2023 1411 EST Body Mass Index 22.31 06/11/2023 1411 EST Functional Status Functional Status Response Date of [...] concentrating, remembering, or making decisions? Yes 07/12/2023 Plan of Treatment Upcoming Encounters Date Type Department Care Team (Late st Contact Info) Description 01/07/2024 12:45 EDT Phlebotomy Only [email or web address] Hematology & Oncology [address] [phone] Blood Doctor, [facility] Hem Onc 01/07/2024 13:30 EDT Office Visit [email or web address] Hematology & Oncology [address] [phone] Maria Alejandra Jung MD [address] [place] [address], [address] [place] [address] 01/16/2024 14:30 EDT Appointment [facility] Mammography [address] [phone] Medical Devices Implanted Type Area Medical Office Supervisor Device Identifier Shelf Expiration Date Model / Serial / Lot Screw In Big Toe (Unknown Side)-Mr Safe Procedures Procedure Name Priority Date/Time Associated Diagnosis Comments UA SEDIMENT + REFLEX TO CULTURE STAT 12/11/2023 14:43 EDT Dysuria POCT CSN BARCODE URINE DIPSTICK STAT 12/11/2023 14:42 EDT Dysuria POCT URINE DIPSTICK, CLINITEK STAT 12/11/2023 14:39 EDT Dysuria POCT URINE CLINITEK (DIPSTICK) - DOES NOT REFLEX STAT 12/11/2023 14:39 EDT Dysuria ORDERS - SCANNED 10/23/2023 11:2 3 EDT ECG REPORT - SCANNED 10/16/2023 7:03 EDT EKG 12-LEAD Routine 10/15/2023 15:[address] CHEST LOW DOSE LUNG SCREENING Routine 12/15/2022 11:53 EDT Personal history of nicotine dependence HEPATITIS C AB W REFLEX TO HCV RNA BY PCR Routine 10/07/2021 15:37 EDT from Last 3 Months or Most Recently Relevant to Health Maintenance Results * (ABNORMAL) UA SEDIMENT + REFLEX TO CULTURE (12/11/2023 14:43 EDT) Urine RBC Count, Auto 3 - 10(A) 0 - 2 Cells/HPF 12/11/2023 15:27 EDT [facility] Urine WBC Count, Auto 0 - 3 0 - 3 Cells/HPF 12/11/2023 15:27 [facility] Urine Squamous Count, Auto None Seen None Seen Cells/HPF 12/11/2023 15:27 [facility] Urine Hyaline Cast Count, Auto <=10 <=10 Casts/LPF 12/11/2023 15:27 [facility] Urine Bacteria Count, Auto None Seen None Seen Bacteria/H PF 12/11/2023 15:27 T [facility] Urine URINE SPECIMEN OBTAINED BY CLEAN CATCH PROCEDURE / Unknown Urine Collect / Unknown 12/11/2023 14:43 EDT 12/11/2023 14:43 EDT Narrative [facility] - 12/11/2023 15:27 EDT NOTE: Reflex to Urine Culture test is not indicated based on Urine Sediment Analysis results. Urine Sediment Analysis results are unreliable on urines that are unrefrigerated for >2 hrs or refrigerated >8 hrs. Annita Lubin MD URINALYSIS ORDERABLE S [facility] [address] [place] [address] * POCT CSN BARCODE URINE DIPSTICK (12/11/2023 14:42 EDT) Urine URINE SPECIMEN OBTAINED BY CLEAN CATCH PROCEDURE / Unknown Urine Collect / Unknown 12/11/2023 14:42 EDT 12/11/2023 14:42 EDT Jorge Layton MD LAB INFO SERVICE AND SUPPORT & PHONE RESULT Performing Organization Address [facility]/ZIP Co de Phone Number [facility] [address] [place] [address] * (ABNORMAL) POCT URINE DIPSTICK, CLINITEK (12/11/2023 14:39 EDT) Color, UA Yellow Yellow 12/11/2023 14:41 [facility] Clarity, UA Clear Clear 12/11/2023 14:41 [facility] Glucose, UA Negative Negative mg/dL 12/11/2023 14:41 [facility] Bilirubin, UA Negative Negative 12/11/2023 14:41 [facility] Ketones, UA Negative Negative 12/11/2023 14:41 [facility] Specific Orient, Urine 1.015 1.001 - 1.030 12/11/2023 14:41 [facility] Blood, UA Trace(A) Negative 12/11/2023 14:41 [facility] pH, UA 7.0 <8.5 12/11/2023 14:41 [facility] Protein, UA Negative Negative mg/dL 12/11/2023 14:41 [facility] Urobilinogen, UA 1.0 0.2 - 1.0 mg/dL 12/11/2023 14:41 [facility] Nitrite, UA Negative Negative 12/11/2023 14:41 [facility] Leuk Esterase Negative Negative 12/11/2023 14:41 [facility] HN LAB COMMENT (CLINITEK, UR) Test performed at Urgent Care 12/11/2023 14:41 EDT [facility] Urine URINE SPECIMEN OBTAINED BY CLEAN CATCH PROCEDURE / Unknown 12/11/2023 14:39 EDT 12/11/2023 14:41 EDT Jorge Layton MD POINT OF CARE TEST O RDERABLES [facility] [address] [place] [address] * ORDERS - SCANNED (10/23/2023 11:23 EDT) 10/23/2023 11:2 3 EDT Scan 2 Psychologists ADMISSION ORDERABLE S * ECG REPORT - SCANNED (10/16/2023 7:03 EDT) 10/16/2023 7:03 EDT Scan 2 Psychologists PROCEDURE/MINOR OMID GICAL ORDERABLES * EKG 12-LEAD (10/15/2023 15:17 EDT) 10/15/2023 15:1 7 EDT Narrative [facility] EKG - 10/16/2023 6:56 EDT ? [facility] ? Test Date: ?2023-10-15 Pat Name: ? DANIELLE GILMAN ? Department: ? Room: ? Gender: ? Female ? 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 [id number] : ?1955 ? Requested By: LAN ADLER Order Number: [id number] ? Allie MD: ?? ESTRADA WEBER MD ? Measurements Intervals ?[place] ? Rate: ? 60 ? P: ?29 VA: ? 201 ?QRS: ?11 QRSD: ? 106 ?T: ?49 QT: ? 408 ? QTc: ?409 ? Interpretive Statements SINUS RHYTHM Compared to ECG 06/11/2023 14:20:49 First degree AV block no longer present I reviewed the tracing and have either agreed or edited the findings in this report. Electronically Signed On 10-16-2023 06:56:16 EDT by ESTRADA WEBER MD. 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 Electronically Signed On 10-16-2023 06:56:16 EDT by ESTRADA DAVIS. Alina Montenegro MD CARDIAC ECG ORDERABL ES [facility] EKG * CT CHEST LOW DOSE LUNG SCREENING (12/15/2022 11:53 EDT) Anatomical Region Laterality Modality Chest Computed Tomogra phy 12/15/2022 15:1 2 EDT Impressions 12/15/2022 15:12 EDT 1. LungRADS category 2 (Benign appearance or behavior) ?? 2. LungRADS category S: Negative. No new or potentially significant incidental findings requiring additional evaluation. 3. Incidental findings as above. RECOMMENDATIONS (Lung cancer screening-specific): Follow up low dose CT in 1 year is recommended. If there are recommendations relevant to other abnormalities, they will be found in the above report. Continued ??low dose CT lung cancer screening should be based upon continued eligibility depending upon age and smoking history. This report utilizes the CT Lung Screening Reporting and Data System (ACR LungRADS [id number]) as below: Category 0: Incomplete (part or all of lung cannot be evaluated, or prior chest CT being located for comparison) Category 1: Negative (no nodules or definitely benign nodules) Category 2: Benign appearance or behavior (nodules with very low likelihood of becoming a clinically active cancer, risk of malignancy <1%) Category 3: Probably benign (probably benign finding - short term follow up suggested, risk of malignancy 1-2%) Category 4: Suspicious (additional diagnostic testing or tissue sampling recommended) Modifiers to Categories 1-4: Category C: Prior diagnosis of lung cancer returning to screening Category S: Potentially significant ancillary finding requiring urgent additional evaluation. I have personally reviewed the images and the above interpretation and agree with the findings. [id number] Narrative 12/15/2022 15:[address] CHEST LOW DOSE LUNG SCREENING ??12/15/2022 11:40 AM Clinical History/Comments: Personal history of nicotine dependence;Z87.891:Personal history of nicotine dependence Technique: A CT scan of the chest was performed without intravenous contrast material using low radiation dose technique for lung cancer screening. This CT used either dose modulation and/or iterative reconstruction techniques to lower radiation dose. Exam description: Low dose Chest CT for lung cancer screening (baseline). Comparison: None. Findings: Lung Screening Specific (LungRADS) findings: * ??There are a few sub-3 mm calcified and noncalcified solid pulmonary nodules bilaterally. Potentially Significant Incidentals (LungRADS Category S): None Pulmonary Incidentals: * ??Mild bilateral interstitial fibrotic changes characterized by diffuse peripheral reticulations and groundglass opacities. * ??Bilateral upper lobe predominant paraseptal and centrilobular emphysema. Other incidentals: * ??Mild coronary artery calcifications. * ??Moderate calcific atherosclerosis of the thoracic aorta. * ??Multilevel degenerative changes are present of the spine.. * ??Right renal cyst ACR Reportable Incidentals: ??None Procedure Note Daniel Valdovinos MD - 12/15/2022 CT CHEST LOW DOSE LUNG SCREENING 12/15/2022 11:40 AM Clinical History/Comments: Personal history of nicotine dependence;Z87.891:Personal history ofnicotine dependence Technique: A CT scan of the chest was performed without intravenous contrast materialusing low radiation dose technique for lung cancer screening. This CT used either dose modulation and/or iterative reconstructiontechniques to lower radiation dose. Exam description: Low dose Chest CT for lung cancer screening(baseline). Comparison: None. Findings: Lung Screening Specific (LungRADS) findings: * There are a few sub-3 mm calcified and noncalcified solid pulmonarynodules bilaterally. Potentially Significant Incidentals (LungRADS Category S): None Pulmonary Incidentals: * Mild bilateral interstitial fibrotic changes characterized by diffuseperipheral reticulations and groundglass opacities. * Bilateral upper lobe predominant paraseptal and centrilobularemphysema. Other incidentals: * Mild coronary artery calcifications. * Moderate calcific atherosclerosis of the thoracic aorta. * Multilevel degenerative changes are present of the spine.. * Right renal cyst ACR Reportable Incidentals: None IMPRESSION 1. LungRADS category 2 (Benign appearance or behavior) 2. LungRADS category S: Negative. No new or potentially significantincidental findings requiring additional evaluation. 3. Incidental findings as above. RECOMMENDATIONS (Lung cancer screening-specific): Follow up low dose CT in1 year is recommended. If there are recommendations relevant to otherabnormalities, they will be found in the above report. Continued low dose CT lung cancer screening should be based uponcontinued eligibility depending upon age and smoking history. This report utilizes the CT Lung Screening Reporting and Data System (ACRLungRADS [id number]) as below: Category 0: Incomplete (part or all of lung cannot be evaluated, or priorchest CT being located for comparison) Category 1: Negative (no nodules or definitely benign nodules) Category 2: Benign appearance or behavior (nodules with very lowlikelihood of becoming a clinically active cancer, risk of malignancy<1%) Category 3: Probably benign (probably benign finding - short term followup suggested, risk of malignancy 1-2%) Category 4: Suspicious (additional diagnostic testing or tissue samplingrecommended) Modifiers to Categories 1-4: Category C: Prior diagnosis of lung cancer returning to screening Category S: Potentially significant ancillary finding requiring urgentadditional evaluation. I have personally reviewed the images and the above interpretation andagree with the findings. [id number] Alina Montenegro MD IM CT ORDERABLES * (ABNORMAL) HEPATITIS C AB W REFLEX TO HCV RNA BY PCR (10/07/2021 15:37 EDT) Hep C Antibody Reactive(A ) Negative 10/10/2021 12:36 EDT [facility] Comment: Supplemental testing for HCV RNA is ordered to rule out active HCV infection. Blood VENOUS BLOOD / Unknown 10/07/2021 15:37 EDT 10/08/2021 21:53 EDT Provider Outr Resulting Lab CHEMISTRY & BLOOD GAS ORDERABLES [facility] [address] [place] [address] from Last 3 Months or Most Recently Relevant to Health Maintenance Care Teams Terra Cotta Mason Relationship Specialty Start Date End Date Alina Montenegro MD [address] [address] PCP - General 08/17/21
--- OUTSIDE RECORDS SUMMARY | 2023-12-31 16:45 | XMS_ITS | Continuity of Care Document ---
Author Organization [facility] Address [address] [place] [address] Assessment Encounter Date Assessment Date Assessment LastModified by Organization Details LastModified Time 10/01/2023 10/01/2023 The total time devoted to today's encounter, including both the etae-wm-tihl time with the patient and/or family/caregi reid and gcs-tbpt-za-f deneen time I personally spent is 30 minutes. Not available 10/01/2023 17:53:05 Plan of Treatment Reminders Order Date Submit Date Provider Last Modified By Organization Details Last Modified Time Details Appointments Annual Wellness Exam 40 2023 01:00P M Nayely Montenegro Not available Not available Not available Follow Up 20 2023 01:40P M Nayely Montenegro Not available Not available Not available Lab drug screen, urine 2023 024 [facility], [address], [place], [address], 10/01/2023 15:06:36 Referral None recorded. Procedures None recorded. Surgeries None recorded. Imaging None recorded. Medication Orders morphine ER 30 mg tablet,ex tended release 2023 024 [facility] [address] [place] [address], [id number], 10/01/2023 18:01:19 morphine ER 30 mg tablet,ex tended release 2023 024 [facility] [address] [place] [address], [id number], 10/01/2023 18:01:19 morphine ER 30 mg tablet,ex tended release 2023 024 [facility] [address] [place] [address], [id number], 10/01/2023 18:01:18 lorazepam 1 mg tablet 2023 024 [facility] [address] [place] [address], [id number], 10/01/2023 18:01:19 Patient TargetsNo targets recorded. Patient InstructionsNo instructions recorded. 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 However in the [...] chains. Last chemistries in December 2022 (at [facility]) did not show elevated calcium. She does have a low folic acid and will resume taking orally. Referring Physician: Nayely Montenegro Family Medicine, Encounter Date: 06/29/2023 Physical Therapist Referral for Left side sciatica She has longstanding back pain and burning pain in the left leg. Has seen multiple specialists and is not a candidate at this time for surgery. She would benefit from [facility] as regular land based PT has exacerbated her pain in the past. Referring Physician: Nayely Montenegro Family Medicine, Encounter Date: 07/27/2023 Results Created Date Observation Date Name Description Value Unit Range Abnormal Flag LastModifiedBy Organization Detail LastModifiedTime 10/01/19 24 10/01/2023 drug scree n, urine Amphetamines : negati ve Not Available [facility] [address], [place], [address], 10/01/2023 14:21:36 10/01/19 24 10/01/2023 drug scree n, urine Barbiturates : negati ve Not Available [facility] [address], [place], [address], 10/01/2023 14:21:36 10/01/19 24 10/01/2023 drug scree n, urine BUP: negati ve Not Available [facility] [address], [place], [address], 10/01/2023 14:21:36 10/01/19 24 10/01/2023 drug scree n, urine Benzodiazepi rao: positi ve Not Available [facility] [address], [place], [address], 10/01/2023 14:21:36 10/01/19 24 10/01/2023 drug scree n, urine Cocaine: negati ve Not Available [facility] [address], [place], [address], 10/01/2023 14:21:36 10/01/19 24 10/01/2023 drug scree n, urine EDDP (Methadone Metabolite) negati ve Not Available [facility] [address], [place], [address], 10/01/2023 14:21:36 10/01/19 24 10/01/2023 drug scree n, urine (MET) Methamphetam ine: negati ve Not Available [facility] [address], [place], [address], 10/01/2023 14:21:36 10/01/19 24 10/01/2023 drug scree n, urine MDMA: negati ve Not Available [facility] [address], [place], [address], 10/01/2023 14:21:36 10/01/19 24 10/01/2023 drug scree n, urine MTD (Methadone): negati ve Not Available [facility] [address], [place], [address], 10/01/2023 14:21:36 10/01/19 24 10/01/2023 drug scree n, urine Pvi439 (Opiate): positi ve Not Available [facility] [address], [place], [address], 10/01/2023 14:21:36 10/01/19 24 10/01/2023 drug scree n, urine OXY (Oxycodone): negati ve Not Available [facility] [address], [place], [address], 10/01/2023 14:21:36 10/01/19 24 10/01/2023 drug scree n, urine TCA: positi ve Not Available [facility] [address], [place], [address], 10/01/2023 14:21:36 10/01/19 24 10/01/2023 drug scree n, urine THC: positi ve Not Available [facility] [address], [place], [address], 10/01/2023 14:21:36 10/01/19 24 10/01/2023 drug scree n, urine Temperature: 90 Not Available [facility] [address], [place], [address], 10/01/2023 14:21:36 10/15/19 24 10/15/2023 gala joshi am No observ ation record ed. [email or web address] Not Available 10/17/2023 13:08:50 10/16/19 24 10/15/2023 elect tanner joshi am No observ ation record ed. [email or web address] Not Available 10/17/2023 13:08:51 Result Notes None recorded. Problems Name Status Onset Date Resolution Date Notes Provider Name and Address Organization Details Recorded Time Mitral valve regurgitation Active 2012- mild-moderate MD Gina M[address], [place] [address] , [facility] 4 07:45:55 Intolerance to lactose Active [address], [place] [address] , [facility] 4 07:47:41 Viral hepatitis C Active 2007 s/p Harvoni 2014. 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 Undetected RNA 10/[address], [place] [address] , [facility] 4 07:53:29 Essential hypertension Active 2009 candesartan caused hyperkalemia MD Gina MENSA[address] Dr, [place], [place], [address] [place] [address] , [facility] 4 07:43:55 Low back pain Active [address], [place] [address] , [facility] 4 07:47:57 History of clinical finding in subject Completed 200606/23/2023 hx of positive PPD MD Gina MENSA[address] Dr, [place] [address] , [facility] 4 07:47:26 Pain in finger Completed 201412/28/2014 12/23/2014 - Comments only - Nayely Montenegro MD - will x-ray Problem Code: M79.646; Problem Code Type: ICD-10; Not Available [facility] 3 04:26:44 Nicotine dependence Active [address], [place], [address] , [facility] 4 07:44:52 Eczema Completed 201404/30/2015 04/15/2015 - Comments only - Nayely Montenegro MD - Continue with steroid cream to patch on buttocks. Problem Code: L30.9; Problem Code Type: ICD-10; Not Available [facility] 3 04:26:44 Skin sensation disturbance Completed 201510/28/2015 10/21/2015 - Comments only - Nayely Montenegro MD - I'm awaiting the note [...] Code Type: ICD-10; MD [address]ina [address], [place], [address] , [facility] 4 07:50:27 Localized eruption of skin Completed 201512/23/2015 11/17/2015 - Comments only - Nayely Montenegro MD - has not responded to steroid cream, referral to dermatology. Problem Code: R21; Problem Code Type: ICD-10; Not Available [facility] 3 04:26:45 Gastroesophag eal reflux disease without esophagitis Active [address], [place], [address] , [facility] 4 07:44:04 Adult health examination Active [address], [place], [address] , [facility] 4 07:37:12 Dream anxiety disorder Active 2015 2016 prazosin trial not helpful MD Gina [address], [place], [address] , [facility] 4 07:43:29 Nausea Active [address], [place], [address] , [facility] 4 07:44:58 Lung function testing abnormal Active 2016 decreased lung diffusion capacity- non communcating bullae on CT scan MD Gina MENSA[address] Dr, [place], [place], [address] [place] [address] , [facility] 4 07:48:39 Vitamin D deficiency Active 2016 14.5 in 10/[address], [place], [address] , [facility] 4 07:55:25 Right upper quadrant pain Active 201702/02/2020 has had extensive workup. May be due to back pain MD Gina [address], [place], [address] , [facility] 4 07:49:22 Generalized anxiety disorder Active [address], [place], [address] , [facility] 4 07:44:23 Posttraumatic stress disorder Active [address], [place], [address] , [facility] 4 07:44:36 Screening mammography Completed 201806/23/2023 Problem Code: Z12.31; Problem Code Type: ICD-10; MD Gina [address], [place], [address] , [facility] 4 07:49:27 Left side sciatica Active [address], [facility] [address] , [facility] 4 07:47:51 Pain in left foot Active [address], [facility] [address] , [facility] 4 07:44:44 Migraine Active [address], [place] [address] , [facility] 4 07:48:54 Hyperkalemia Completed 202206/23/2023 12/29/2022 - Comments only - Nayely Montenegro MD - She has stopped the ARB about 10 days ago. She will need a repeat BMP in a few weeks. Problem Code: E87.5; Problem Code Type: ICD-10; MD Gina MENSA[address] Dr, [facility] [address] , [facility] 4 07:47:34 Hemorrhage of rectum and anus Active 2022 did not tolerate prep for colonoscopy MD Gina M[address] Dr, [facility] [address] , [facility] 4 07:46:20 Blood in urine Completed 202006/23/2020 Problem Code: R31.9; Problem Code Type: ICD-10; Not Available [facility] 3 04:26:48 Breast composition Completed 202007/15/[address], [facility] [address] 4 07:40:02 Disorder of bone and articular cartilage Completed 201002/28/2023 Problem Code: 733.90; Problem Code Type: ICD-9; Not Available [facility] 3 04:26:48 Epigastric pain Completed 202010/01/2020 Problem Code: R10.13; Problem Code Type: ICD-10; Not Available [facility] 04:26:48 Therapeutic drug monitoring assay Completed 201711/21/2017 Problem Code: Z51.81; Problem Code Type: ICD-10; Not Available [facility] 04:26:48 Mitral valve disorder Completed 201202/28/2023 Problem Code: 424.0; Problem Code Type: ICD-9; Not Available [facility] 3 04:26:48 Sciatica Completed Problem Code: 724.3; Problem Code Type: ICD-9; Not Available [facility] 04:26:49 Chronic pain Completed 200602/28/2023 03/18/2015 - Comments only - Nayely Montenegro MD - I have renewed her [...] 338.29; Problem Code Type: ICD-9; Not Available [facility] 04:26:49 Chronic hepatitis C Completed 200702/28/2023 01/19/2015 - Comments only - Nayely Montenegro MD - She has only 9 days left of her hepatitis C treatment. She is congratulated on completion. She has lab work as requested from her gastroenterol ogist to do over the next few months. She also needs an ultrasound, she needs to clarify whether this can be done at our local hospital, or whether it is a special scan requiring [facility] equipment. Problem Code: 070.54; Problem Code Type: ICD-9; Not Available [facility] 3 04:26:49 Chest pain Completed 202110/07/2021 Problem Code: R07.89; Problem Code Type: ICD-10; Not Available [facility] 3 04:26:50 Lactose intolerance Completed 200702/28/2023 Not Available [facility] 3 04:26:50 Abnormal weight gain Completed 201507/03/2016 Problem Code: R63.5; Problem Code Type: ICD-10; Not Available [facility] 3 04:26:50 Dizziness and giddiness Completed 201409/09/2018 Problem Code: R42; Problem Code Type: ICD-10; Not Available [facility] 3 04:26:50 Abdominal pain Completed 202006/23/2020 Problem Code: R10.9; Problem Code Type: ICD-10; Not Available [facility] 3 04:26:50 Headache Completed 201505/08/2016 Problem Code: R51; Problem Code Type: ICD-10; Not Available [facility] 3 04:26:51 History of injury Completed 202010/01/2020 Problem Code: Z87.828; Problem Code Type: ICD-10; Not Available [facility] 3 04:26:51 Anxiety disorder Completed 200602/28/2023 Not Available [facility] 3 04:26:51 Depressive disorder Completed 200603/18/2015 Not Available [facility] 3 04:26:51 Mantoux: positive Completed 200602/28/2023 Not Available [facility] 3 04:26:52 Nausea Completed 202010/01/2020 Problem Code: R11.0; Problem Code Type: ICD-10; NAYELY MONTENEGRO MD [address], [place], [address] , [facility] 4 07:44:58 Hypertensive disorder Completed 200902/28/2023 Not Available [facility] 3 04:26:52 Lumbago with sciatica Completed 200602/28/2023 01/12/2016 - Comments only - Nayely Montenegro MD - Functionally improved recently, continue to use walker PRN, chronic narcotics are renewed for 4 weeks. Problem Code: M54.40; Problem Code Type: ICD-10; Not Available [facility] 3 04:26:52 Skin sensation disturbance Completed 201509/09/2018 Problem Code: R20.9; Problem Code Type: ICD-10; MD Gina [address], [place], [address] , [facility] 4 07:50:27 Pain in lower limb Completed 201403/18/2015 Problem Code: M79.606; Problem Code Type: ICD-10; Not Available [facility] 3 04:26:53 Localized edema Completed 201509/09/2018 Problem Code: R60.0; Problem Code Type: ICD-10; Not Available [facility] 3 04:26:54 Fatigue Completed 202006/23/2020 Problem Code: R53.83; Problem Code Type: ICD-10; Not Available [facility] 3 04:26:54 Senile osteopenia Active 2017 remains in osteopenia range MD Gina [address], [place], [address] , [facility] 4 07:39:48 Paresthesia of lower extremity Active 2018 EMG 06/2023 at [facility]: negative radiculpathy, positive peripheral neuropathy MD Gina [address], [place], [address] , [facility] 4 07:58:38 Subclinical hypothyroidis m Completed 201606/23/2023 negative thyroid antibodies 2017 Removal Reason: Tsh normal MD Gina [address], [place], [address] , [facility] 4 07:51:57 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 Please review this document and add these problems to the patient's chart manually as needed. Problem Notes None recorded. Medical Equipment None Reported. Allergies Allergen ID Allergen Name Allergen Category Reaction Reaction Severity Criticality Documentation Date Start Date Code Code System Note Provider Name and Address Organization Details Recorded Time 18266 adhesive tape environme nt,medica tion rash mild Not available 04/13/20232007 skin redne ss Aller gyRea ction : 'skin redne ss'; Not Available [facility] 3 16:26:23 Medications Name Sig Start Date Stop Date Status Note LastModified by Organization Details LastModified Time cyclobenz aprine 10 mg tablet Take 1 tab by mouth three times daily 11/11 completed Per [facility] discharg e Not Available Not Available Not [...] ine 25 mg rectal supposito ry 1 [place] q 12 hours prn N/V 07/16 completed Not Available Not Available Not Available Paxil 20 mg tablet 1 TAB daily 10/18 completed Medicati onName: 'PAXIL 20MG'; Not Available Not Available Not Available lisinopri l 20 mg tablet Take 1 tab by mouth daily 02/01 completed Not Available Not Available Not Available Medrol (Simone) 4 mg tablets in a dose pack [...] ion with 30 mg BID. Fill at [facility] only. 03/08 completed Not Available Not Available [...] tablets twice a day. Fill only at [facility] [address] Maximum daily dose of 4 mg. May fill [id number] 2023 active Not Available Not Available Not Avai lable Nasonex 50 mcg/actua tion [facility] 2 sprays daily 2012 active Not Available Not Available Not Avai lable ibuprofen 600 mg tablet Take 1 tab by mouth four times daily as needed 11/11 completed Per [facility] discharg e Not Available Not Available Not Available HM Vitamin C 1000 mg tablet 1 qd 03/20 completed Not Available Not Available Not Available Vitamin D2 1,250 mcg (50,000 unit) capsule Take one capsule by mouth WEEKLY for 12 weeks 01/07 completed Per [facility] discharg e Not Available Not Available Not Available morphine 15 mg immediate release tablet take 1 by mouth twice a day. Fill at [facility] only. Max daily dose 30 mg 10/01 completed [...] follow instruct ions provided by GI office. 06/23 completed Not Available Not Available Not [...] Organization Details Last Updated DateTime 162.56 cm 23.3 kg/m2 89797.5 6 g 97.5 [degF] 96 % 96 % 16 /min 86 /min 128 mm[Hg] 88 mm[Hg] ROX KANG LPN [facility] 13:21:51 Social History Question Answer Notes LastModified by Organizat ion Details LastModified Time Tobacco Smoking Status Current Every Day Smoker ROX KANG LPN [facility] 06/25/2023 13:25:54 1) Date Of Last [...] preservative free, adsorbed 10/19/2017 completed Not Available [facility] 06/09/2023 14:22:23 Tdap 04/07/2008 completed Not Available [facility] 14:22:22 zoster live 02/28/2017 completed Not Available [facility] 06/09/2023 14:22:23 Novel Mgzdanzmi-W2A1-12, all formulations 07/05/2009 completed Not Available [facility] 06/09/2023 14:22:23 Influenza, split virus, trivalent, preservative 02/16/2016 completed Not Available [facility] 06/09/2023 14:22:23 Influenza, split virus, trivalent, preservative 02/18/2015 completed Not Available [facility] 06/09/2023 14:22:23 Influenza, split virus, quadrivalent, PF 02/24/2019 completed Not Available [facility] 06/09/2023 14:22:23 Influenza, split virus, quadrivalent, PF 03/08/2020 completed Not Available [facility] 06/09/2023 14:22:23 Influenza, split virus, quadrivalent, PF 04/11/2021 completed Not Available [facility] 06/09/2023 14:22:23 zoster recombinant 08/12/2021 completed Not Available [facility] 06/09/2023 14:22:22 zoster recombinant 11/04/2021 completed Not Available [facility] 06/09/2023 14:22:22 Influenza, high-dose, quadrivalent, PF 03/23/2022 completed Not Available [facility] 06/09/2023 14:22:22 COVID-19, mRNA, LNP-S, PF, 100 mcg/0.5mL dose or 50 mcg/0.25mL dose 09/02/2020 completed Not Available [facility] 06/09/2023 14:22:22 COVID-19, mRNA, LNP-S, PF, 100 mcg/0.5mL dose or 50 mcg/0.25mL dose 09/30/2020 completed Not Available [facility] 06/09/2023 14:22:22 COVID-19, mRNA, LNP-S, PF, 100 mcg/0.5mL dose or 50 mcg/0.25mL dose 10/07/2021 completed Not Available [facility] 06/09/2023 14:22:22 COVID-19, mRNA, LNP-S, PF, 100 mcg/0.5mL dose or 50 mcg/0.25mL dose 04/11/2021 completed Not Available [facility] 06/09/2023 14:22:22 Pneumococcal conjugate PCV20, polysaccharide [id number] conjugate, adjuvant, PF 03/23/2022 completed Not Available [facility] 06/09/2023 14:22:22 COVID-19, mRNA, LNP-S, bivalent, PF, 50 mcg/0.5 mL or 25mcg/0.25 mL dose 04/01/2022 completed Not Available [facility] 06/09/19 14:22:22 pneumococcal polysaccharide PPV23 08/04/2009 completed Not Available [facility] 2023 14:22:22 Hep B, unspecified formulation 12/09/2008 completed Not Available [facility] 06/09/2023 14:22:23 Hep B, unspecified formulation 04/22/2008 completed Not Available [facility] 06/09/2023 14:22:23 Hep B, unspecified formulation 06/03/2008 completed Not Available [facility] 06/09/2023 14:22:23 Hep A, unspecified formulation 12/29/2008 completed Not Available [facility] 06/09/2023 14:22:23 Hep A, unspecified formulation 04/22/2008 completed Not Available [facility] 06/09/2023 14:22:23 Hep A, unspecified formulation 06/03/2008 completed Not Available [facility] 06/09/2023 14:22:23 influenza, unspecified formulation 06/28/2006 completed Not Available [facility] 06/09/2023 14:22:22 influenza, unspecified formulation 01/30/2011 completed Not Available [facility] 06/09/2023 14:22:22 influenza, unspecified formulation 02/14/2012 completed Not Available [facility] 06/09/2023 14:22:22 influenza, unspecified formulation 02/25/2008 completed Not Available [facility] 06/09/2023 14:22:22 influenza, unspecified formulation 02/24/2009 completed Not Available [facility] 06/09/2023 14:22:22 influenza, unspecified formulation 02/24/2013 completed Not Available [facility] 06/09/2023 14:22:22 influenza, unspecified formulation 03/13/2014 completed Not Available [facility] 06/09/2023 14:22:22 influenza, unspecified formulation 03/20/2007 completed Not Available [facility] 06/09/2023 14:22:22 influenza, unspecified formulation 03/21/2010 completed Not Available [facility] 06/09/2023 14:22:22 COVID-19, mRNA, LNP-S, PF, 50 mcg/0.5 mL 04/11/2023 completed KARAN BONILLA, [facility]. 06/25/2023 15:21:19 influenza, unspecified formulation 04/11/2023 completed KARAN BONILLA, [facility] 06/25/2023 15:24:12 Past Encounters Encounter ID Performer Location Encounter Start Date Encounter Closed Date Diagnosis/Indication Diagnosis SNOMED-CT Code [id number] NAYELY MONTENEGRO MD [address] [place] [address] 10/01/2023 12:54:48 10/01/2023 14:26:15 Chronic low back pain 262714963 Generalize d anxiety disorder 95777094 Essential hypertension 86164540 Health Concerns Section Related Observation LastModified by Organization Detai ls LastModified Time None Recorded Concern Status LastModified by Organization Details LastModified Time None Recorded Payers Encounter Date Sequence Insurance Name Policy Number Policy Saravia Covered Member ID Saravia Member ID Guarantor Name 10/01/2023 1 [place] [employer] Danielle Soto [id number] Danielle A Charles 10/01/2023 2 [facility] (MEDICAID) Danielle Jaja Soto [id number] Danielle A Charles Notes Date Note Type Note Provider Name and Address Organization Details Recorded Time 10/01/2023 text/html HPI Notes: Here for follow [...] a few days, it is gone now. [place] like she had a marble in the [...] The atenolol for blood pressure control lately. NAYELY MONTENEGRO MD [address], [place], [address], [facility]. 10/01/2023 17:53:11 OBGyn Episode No OBEpisode recorded.
--- OUTSIDE RECORDS SUMMARY | 2023-12-31 16:45 | XMS_ITS | Continuity of Care Document ---
Author Organization [facility] Address [address] [place] [phone] Phone Care Team Providers Care Director Of Pupil Personnel Program Name Role Phone Nurse, Office Unavailable Unavailable Procedures Procedure Date FLU VACC PRSV FREE INC ANTIG Admin influenza virus vac Advance Directives Directive Yes / No Effective Date File Name No Information Encounters Encounter Description Practice Location Reason(s) For Visit Diagnoses Date Provider Providers Copied on Encounter [facility], [address] [place] [address], [address] [place] [address], tel:[phone] [facility] No Information Nurse Office. [address] [place] [address], [facility] [place], . tel:[phone] [facility], [address] [place] [address], [address] [place] [address], tel:[phone] [facility] No Information Nurse Office. [address] [place] [address], [facility] [place], . tel:[phone] Referring Provider: Beatrice Avalos, [address] [place] [address], [facility] [place]. tel:[phone] Family History Family Member Type Diagnosis Age At Onset No Information Immunizations Vaccine Date Status Comments Moderna Spikevax ages 12-18, [id number], ages 65 and up administered Note: Renard seymour RN Outreach ; Source: Source Unspecified HD Flu 65+ [facility] Supplied administered Myra rce: New Immunization Record Payers Payer name Insurance type Covered alliance party ID Authoriza tion(s) Medicaid [id number] Social History Type Description Quantity Date Captured Comments Sex Female Smoking Status No Information Sexual Orientation Straight or heterosexual Gender Identity Female Chief Complaint And Reason For Visit No Information Reason For Referral Reason For Referral No Information History Of Present Illness Encounter Date Complaint History Of Prese nt Illness No Information Functional Status Date Functional Assessmen t No Information Instructions Date Instruction Additional Infor mation No Information Assessments Type Assessment Date No Information Patient Care Teams Name Effective Dates (start - stop) Status Members No Information
--- OUTSIDE RECORDS SUMMARY | 2023-12-31 16:45 | XMS_ITS | Clinical Summary ---
Author Organization [facility] Address [address] [place] [address] Care Team Providers Care Lithographic General Worker Name Role Phone Alina Montenegro MD Primary Care Provider [phone] Allergies Active Allergy Reactions Criticality Noted Date [...] Paula Robles 11/06/2022 10:37 PATIENT CAME TO [facility] TO SCHEDULE A COLOSCOPY APPOINTMENT WITH [facility], DID NOT SEE ANY APPOINTMENTS OR INFORMATION IN NOTES AND ENCOUNTERS ABOUT AN COLOSCOPY APPOINTMENT, SPOKE TO TIFFANY/DR MONTENEGRO OFFICE ABOUT STATUS OF REFERRAL TO [facility] FOR COLOSCOPY AND SENT FAX TO [phone] ON 11.01.2022 [facility], SPOKE TO GASTROENTEROLOGY PASSENGER INTERLINE CLERK STATED NO REFERRAL RECEIVED, SPOKE TO TITI/GASTROENTEROLOGY STATED FAX NUMBERS ARE [phone] OR [phone], INFORMED TIFFANY/DR MONTENEGRO TO REFAX REFERRAL TO [...] AND GUIDANCE UNTIL APPOINTMENT DAY 2021 - [place] Medicaid ACO per web/trace# [phone] Brayan Mercedes 08/17/2021 10:37 Patient has declined to give permission for [facility] to verbally discuss any information with anyone other than the patient. Permission remains in effect until the patient elects to revoke it. Problem Noted Date Diagnosed Date Left leg pain 05/30/2023 Encounters Date Type Department Care Team Description 12/31/2023 Transcribe Orders [facility] Alina Olivares MD Other specified disorders of bone density and structure, unspecified site (Primary Dx); Essential (primary) hypertension 12/11/2023 14:34 EDT - 12/11/2023 15:34 EDT Hospital Encounter [facility] - [facility] [address] [place] [address] Jorge Layton MD Dysuria (Primary Dx) Discharge Disposition: Home or Self Care 10/15/2023 15:00 EDT - 10/15/2023 23:59 EDT Hospital Encounter [facility] Non-Invasive Cardiology - [address] [address] Estrada Weber MD Discharge Disposition: Home or Self Care 10/15/2023 Orders Only [facility] Shannan Jesus MA Preop examination 10/15/2023 Transcribe Orders [facility] Alina Olivares MD Other specified pre-operative examination (Primary Dx); Preop examination from Last 3 Months Surgical History Surgery Date Site/Laterality Comments SPINE SURGERY spinal cord stimulator HYSTERECTOMY TONSILLECTOMY AND ADENOIDECTOMY BUNIONECTOMY Medical History Medical History Date Comments Hypertension Thyroid disease Leaky heart valve Sciatica COPD (chronic obstructive pulmonary disease) ( [facility]) Hypercholesteremia Social History Tobacco Use Types Packs/Day Years [...] 11:20 EDT Sexual Orientation Not on file Obstetrics History Last Filed Vital Signs Vital Sign Reading [...] Body Mass Index 22.31 06/11/2023 1411 EST Plan of Treatment Upcoming Encounters Date Type Department Care Team (Late st Contact Info) Description 01/07/2024 12:45 EDT Phlebotomy Only [facility] Hematology & Oncology [address] [phone] Blood Doctor, [facility] Hem Onc 01/07/2024 13:30 EDT Office Visit [facility] Hematology & Oncology [address] [phone] Maria Alejandra Jung MD [address] [place] [address], [address] [place] [phone] 01/16/2024 14:30 EDT Appointment [facility] Breast Imaging Mammography [address] [address] Health Maintenance Due Date Last Done Comments RSV Immunization ( o r 60+ Years) (1 - 1-dose 60+ series) 2017 Fall Risk Screening 2022 COVID-19 Vaccine (3 - 2022-2 4 season) 2023 10/07/2021, 04/11/2021 Hepatitis C Screen Completed 10/07/2021, 0 10/07/2021, 07/15/2021, Additional history exists Lung Cancer Screening Discontinued 12/15/2022 Medical Devices Implanted Type Area Ammonia Box Operator Device Identifier Shelf Expiration Date Model / [...] 0 - 2 Cells/HPF 12/11/2023 15:27 EDT [facility] Urine WBC Count, Auto 0 - 3 0 - 3 Cells/HPF 12/11/2023 15:27 EDT [facility] Urine Squamous Count, Auto None Seen None Seen Cells/HPF 12/11/2023 15:27 [facility] Urine Hyaline Cast Count, Auto <=10 <=10 Casts/LPF 12/11/2023 15:27 [facility] Urine Bacteria Count, Auto None Seen None Seen Bacteria/H PF 12/11/2023 15:27 [facility] Urine URINE SPECIMEN OBTAINED BY CLEAN CATCH PROCEDURE / Unknown Urine Collect / Unknown 12/11/2023 14:43 EDT 12/11/2023 14:43 EDT Narrative [facility] - 12/11/2023 15:27 EDT NOTE: Reflex to Urine Culture test is not indicated based on Urine Sediment Analysis results. Urine Sediment Analysis results are unreliable on urines that are unrefrigerated for >2 hrs or refrigerated >8 hrs. Annita Lubin MD URINALYSIS ORDERABLE S Performing Organization Address [facility]/ZIP Co de Phone Number [facility] [address] [place], [place] [address] * POCT CSN BARCODE URINE DIPSTICK (12/11/2023 14:42 EDT) Urine URINE SPECIMEN OBTAINED BY CLEAN CATCH PROCEDURE / Unknown Urine Collect / Unknown 12/11/2023 14:42 EDT 12/11/2023 14:42 EDT Jorge Layton MD LAB INFO SERVICE AND SUPPORT & PHONE RESULT Performing Organization Address [facility] Co de Phone Number [facility] [address] [place], [place] [phone] * (ABNORMAL) POCT URINE DIPSTICK, CLINITEK (12/11/2023 14:39 EDT) Color, UA Yellow Yellow 12/11/2023 14:41 [facility] Clarity, UA Clear Clear 12/11/2023 14:41 [facility] Glucose, UA Negative Negative mg/dL 12/11/2023 14:41 [facility] Bilirubin, UA Negative Negative 12/11/2023 14:41 [facility] Ketones, UA Negative Negative 12/11/2023 14:41 [facility] Specific Clio, Urine 1.015 1.001 - 1.030 12/11/2023 14:41 [facility] Blood, UA Trace(A) Negative 12/11/2023 14:41 [facility] pH, UA 7.0 <8.5 12/11/2023 14:41 [facility] Protein, UA Negative Negative mg/dL 12/11/2023 14:41 [facility] Urobilinogen, UA 1.0 0.2 - 1.0 mg/dL 12/11/2023 14:41 EDT [facility] Nitrite, UA Negative Negative 12/11/2023 14:41 EDT [facility] Leuk Esterase Negative Negative 12/11/2023 14:41 EDT [facility] HN LAB COMMENT (CLINITEK, UR) Test performed at Urgent Care 12/11/2023 14:41 EDT [facility] Urine URINE SPECIMEN OBTAINED BY CLEAN CATCH PROCEDURE / Unknown 12/11/2023 14:39 EDT 12/11/2023 14:41 EDT Jorge Layton MD POINT OF CARE TEST O RDERABLES [facility] [address] [place], [place] [phone] * ORDERS - SCANNED (10/23/2023 11:23 EDT) 10/23/2023 11:2 3 EDT Scan 2 Garde Manager ADMISSION ORDERABLE S * ECG REPORT - SCANNED (10/16/2023 7:03 EDT) 10/16/2023 7:03 EDT Scan 2 Garde Manager PROCEDURE/MINOR OMID GICAL ORDERABLES * EKG 12-LEAD (10/15/2023 15:17 EDT) 10/15/2023 15:1 7 EDT Narrative [facility] - 10/16/2023 6:56 EDT ? [facility] ? Test Date: ?2023-10-15 Pat Name: ? DANIELLE GILMAN ? Department: ? Room: ? Gender: ? Female ? Scalp Treatment Specialist: ?? [id number] : ?1955 ? Requested By: LAN ADLER Order Number: [id number] ? Reading MD: ?? ESTRADA WBEER MD ? Measurements Intervals ?Campbell ? Rate: ? 60 ? P: ?29 MO: ? 201 ?QRS: ?11 QRSD: ? 106 [...] Note Estrada Weber MD - 10/16/2023 [facility] Test Date: 2023-10-15 Pat Name: DANIELLE GILMAN Department: Room: Gender: Female Scalp Treatment Specialist: [id number] : 1955 Requested By: LAN ADLER Order Number: [id number] Reading MD: ESTRADA WEBER MD Measurements Intervals Campbell Rate: 60 P: 29 MO: 201 QRS: 11 QRSD: 106 T: 49 QT: 408 QTc: 409 Interpretive Statements SINUS RHYTHM Compared to ECG 06/11/2023 14:20:49 First degree AV block no longer present I reviewed the tracing and have either agreed or edited the findings inthis report. Electronically Signed On 10-16-2023 06:56:16 EDT by ESTRADA DAVIS. Alina Montenegro MD CARDIAC ECG ORDERABL ES [facility] * CT CHEST LOW DOSE LUNG [...] Screening Reporting and Data System (ACR LungRADS [id number]) as below: Category 0: Incomplete (part or [...] above interpretation and agree with the findings. [id number] Narrative 12/15/2022 15:[address] CHEST LOW [...] Lung Screening Reporting and Data System (ACRLungRADS [id number]) as below: Category 0: Incomplete (part or [...] the above interpretation andagree with the findings. [id number] Alina Montenegro MD IMG CT ORDERABLES * (ABNORMAL) HEPATITIS C AB W REFLEX TO HCV RNA BY PCR (10/07/2021 15:37 EDT) Hep C Antibody Reactive(A ) Negative 10/10/2021 12:36 EDT [facility] Comment: Supplemental testing for HCV RNA is ordered to rule out active HCV infection. Blood VENOUS BLOOD / Unknown 10/07/2021 15:37 EDT 10/08/2021 21:53 EDT Provider Outr Resulting Lab CHEMISTRY & BLOOD GAS ORDERABLES [facility] [address] [place] [address] from Last 3 Months or Most Recently Relevant to Health Maintenance Care Teams Lithographic General Worker Relationship Specialty Start Date End Date Alina Montenegro MD [address] [place] [phone] PCP - General 08/17/21
--- OUTSIDE RECORDS SUMMARY | 2023-12-31 16:45 | XMS_ITS | Encounter Summary ---
Author Organization [facility] Address [address] [place] [address] Care Team Providers Care Bushing And Broach Operator Name Role Phone Alina Santacruz MD Primary Care Provider [phone] Reason for Visit * Reason Comments Dysuria Onset 3 weeks ago, d ysuria. Denies urinary urgency, frequency, hematuria, vaginal discharge/itching. Patient taking AZO for the past 3 weeks, last dose today. Encounter Details Date Type Department Care Team (Latest Contact Info) Description 12/11/2023 14:34 EDT - 12/11/2023 15:34 EDT Hospital Encounter [facility] Urgent Care - [address] [id number] Jorge Layton MD [address] [place] [phone] Dysuria (Primary Dx) Discharge Disposition: Home or Self Care Social History Tobacco Use Types Packs/Day Years [...] on file documented as of this encounter Last Filed Vital Signs Vital Sign Reading Time Taken Comments Blood Pressure 129/60 12/11/2023 1432 EDT Pulse 73 12/11/2023 1432 EDT Temperature 35.9 ??C (96.6 ??F) 12/11/2023 1432 EDT Respiratory Rate 16 12/11/2023 1432 EDT Oxygen Saturation 96% 12/11/2023 1432 EDT Inhaled Oxygen Concentration - - Weight - - Height - - Body Mass Index - - documented in this encounter Functional Status Functional Status Response [...] Yes 07/12/2023 documented as of this encounter Discharge Instructions * Discharge Instructions* Jorge Layton MD - 12/11/2023 15:25 EDT If this antibiotic does not clear up your symptoms it is possible it is from a pelvic cause or possibly related to the long-term use of Azo. If things or not better in 3 to 4 days, call your primary care doctor for further evaluation. * Attachments The following attachments cannot be sent through Care Everywhere. * Dysuria (Irish) documented in this encounter Medications at Time of Discharge Medication Sig Dispensed Refills Start Date End Date albuterol 90 mcg/actuation inhaler Inhale 180 mcg as directed every 4 hours. amitriptyline (ELAVIL) 25 mg tablet Take 25 mg by mouth daily. atenoloL (TENORMIN) 100 mg tablet Take 1 Tablet by mouth daily. 06/17/2021 atorvastatin (LIPITOR) 10 mg tablet Take 1 Tablet by mouth daily. candesartan (ATACAND) 4 mg tablet Take 4 mg by mouth daily. Cholecalciferol, Vitamin D3, 50 mcg capsule Take 1 Capsule by mouth daily. clobetasoL (TEMOVATE) 0.05 % cream Apply topically 2 times daily. cyanocobalamin (VITAMIN B-12) 1,000 mcg tablet Take 1 Tablet by mouth daily. DULoxetine (CYMBALTA) 60 mg capsule Take 1 Capsule by mouth daily. folic acid (FOLVITE) 1 mg tablet Take 1 Tablet by mouth daily. fosinopriL-hydrochlo rothiazide (MONOPRIL-HCT) 10-12.5 mg per tablet Take 1 Tablet by mouth daily. LORazepam (ATIVAN) 1 mg tablet Take 1 Tablet by mouth every 4 hours as needed. morphine (MS CONTIN) 30 mg CR tablet Take 1 Tablet by mouth every 12 hours. naloxone (NARCAN) 4 mg/actuation nasal spray 0.1 mL by nasal route as needed for Opioid Reversal. pregabalin (LYRICA) 150 mg capsule Take 1 Capsule by mouth 2 times daily. promethazine (PHENERGAN) 25 mg tablet Take 25 mg by mouth every 4 hours. sodium,potassium,mag sulfates (SUPREP BOWEL PREP) kit Please follow instructions provided by GI office. 1 Kit 11/08/2022 tiotropium-olodatero L (STIOLTO RESPIMAT) 2.5-2.5 mcg/actuation inhaler Inhale as directed daily. nitrofurantoin, macrocrystal-monohyd rate, (MACROBID) 100 mg capsule Take 1 Capsule by mouth every 12 hours for 5 days. 10 Capsule 12/11/2023 12/16/2023 documented as of this encounter Ordered Prescriptions Prescription Sig Dispensed Refills Start Date End Da te nitrofurantoin, macrocrystal-monohydrate , (MACROBID) 100 mg capsule Take 1 Capsule by mouth every 12 hours for 5 days. 10 Capsule 12/11/2023 12/16/2023 documented in this encounter Discharge Disposition Disposition Code Departure Means Destination Comment s Home or Self Correction documented in this encounter ED Notes * Jorge Layton MD - 12/11/2023 1411 EDT DOS: 12/11/2023 Chief Complaint: Chief Complaint Patient presents with Dysuria Onset 3 weeks ago, dysuria. Denies urinary urgency, frequency, hematuria, vaginal discharge/itching. Patient taking AZO for the past 3 weeks, last dose today. Assessment and Plan Dysuria with inconclusive UA, no risk factors for STI or vaginal discharge. Will treat empirically with nitrofurantoin pending culture results but advised patient if symptoms do not resolve with thistreatment she should see her PCP for probable pelvic exam and further evaluation. Final diagnoses: Dysuria Procedures Results for orders placed or performed during the hospital encounter of 12/11/23 POCT URINE DIPSTICK, CLINITEK Result Value Ref Range Color, UA Yellow Yellow Clarity, UA Clear Clear Glucose, UA Negative Negative mg/dL Bilirubin, UA Negative Negative Ketones, UA Negative Negative Specific [place], Urine 1.015 1.001 - 1.030 Blood, UA Trace (A) Negative pH, UA 7.0 <8.5 Protein, UA Negative Negative mg/dL Urobilinogen, UA 1.0 0.2 - 1.0 mg/dL Nitrite, UA Negative Negative Leuk Esterase Negative Negative HN LAB COMMENT (CLINITEK, UR) Test performed at Urgent Care Radiology orders: None Consult orders: None Imaging Results None No orders to display The patient is a 68 y.o. female who presents today with Dysuria (Onset 3 weeks ago, dysuria. Deniesurinary urgency, frequency, hematuria, vaginal discharge/itching. Patient taking AZO for the past 3weeks, last dose today. /) 68-year-old woman has had dysuria for about 3 weeks. She started taking Azo with some relief but now that it is not working anymore. She denies flank or abdominal pain, fever or chills, vaginal discharge or recent antibiotic use. She is not sexually active. Review of Systems No current facility-administered medications for this encounter. Current Outpatient Medications Medication Sig Dispense Refill albuterol 90 mcg/actuation inhaler Inhale 180 mcg as directed every 4 hours. (Patient not taking: Reported on 06/18/2023) amitriptyline (ELAVIL) 25 mg tablet Take 25 mg by mouth daily. (Patient not taking: Reported on 06/18/2023) atenoloL (TENORMIN) 100 mg tablet Take 1 Tablet by mouth daily. atorvastatin (LIPITOR) 10 mg tablet Take 1 Tablet by mouth daily. candesartan (ATACAND) 4 mg tablet Take 4 mg by mouth daily. (Patient not taking: Reported on 06/18/2023) Cholecalciferol, Vitamin D3, 50 mcg capsule Take 1 Capsule by mouth daily. clobetasoL (TEMOVATE) 0.05 % cream Apply topically 2 times daily. (Patient not taking: Reported on 10/30/2022) cyanocobalamin (VITAMIN B-12) 1,000 mcg tablet Take 1 Tablet by mouth daily. DULoxetine (CYMBALTA) 60 mg capsule Take 1 Capsule by mouth daily. folic acid (FOLVITE) 1 mg tablet Take 1 Tablet by mouth daily. fosinopriL-hydrochlorothiazide (MONOPRIL-HCT) 10-12.5 mg per tablet Take 1 Tablet by mouth daily. (Patient not taking: Reported on 06/18/2023) LORazepam (ATIVAN) 1 mg tablet Take 1 Tablet by mouth every 4 hours as needed. morphine (MS CONTIN) 30 mg CR tablet Take 1 Tablet by mouth every 12 hours. naloxone (NARCAN) 4 mg/actuation nasal spray 0.1 mL by nasal route as needed for Opioid Reversal. (Patient not taking: Reported on 07/17/2023) nitrofurantoin, macrocrystal-monohydrate, (MACROBID) 100 mg capsule Take 1 Capsule by mouth every 12 hours for 5 days. 10 Capsule 0 pregabalin (LYRICA) 150 mg capsule Take 1 Capsule by mouth 2 times daily. promethazine (PHENERGAN) 25 mg tablet Take 25 mg by mouth every 4 hours. (Patient not taking: Reported on 10/30/2022) sodium,potassium,mag sulfates (SUPREP BOWEL PREP) kit Please follow instructions provided by GI office. (Patient not taking: Reported on 06/18/2023) 1 Kit 0 tiotropium-olodateroL (STIOLTO RESPIMAT) 2.5-2.5 mcg/actuation inhaler Inhale as directed daily. Allergies Allergen Reactions Adhesive Tape-Silicones Patient Active Problem List Diagnosis Date Noted Left leg pain 05/30/2023 Past Medical History: Diagnosis Date COPD (chronic obstructive pulmonary disease) ([facility]) Hypercholesteremia Hypertension Leaky heart valve Sciatica Thyroid disease Social History Tobacco Use Smoking status: Every Day Current packs/day: 0.25 Average packs/day: 0.3 packs/day for 21.0 years (5.3 ttl pk-yrs) Types: Cigarettes Smokeless tobacco: Never Substance Use Topics Alcohol use: Not Currently Drug use: Yes Types: Marijuana History reviewed. No pertinent family history. BP 129/60 Pulse 73 Temp 96.6 ??F (35.9 ??C) (Temporal) Resp 16 SpO2 96% Physical Exam Constitutional: General: She is not in acute distress. Appearance: She is not ill-appearing. Abdominal: Palpations: Abdomen is soft. There is no mass. Tenderness: There is no abdominal tenderness. There is no right CVA tenderness or left CVA tenderness. PCP: Alina Santacruz [facility] Course A medical screening exam was performed. DISPOSITION: Discharged The patient's pain was managed to an adequate level weighing risk vs. benefit of further medications. Upon departure from [facility], the patient's pain was 0 on a zero to ten scale. Any further pain treatment will be at the discretion of the provider following up with the patient based on their clinical assessment . Condition at departure from the [facility] : Stable MDM 12/11/2023 15:26 documented in this encounter Plan of Treatment Upcoming Encounters Date Type Department Care Team (Late st Contact Info) Description 01/07/2024 12:45 EDT Phlebotomy Only [facility] Hematology & Oncology - [address] [phone] Blood Doctor, [facility] Hem Onc 01/07/2024 13:30 EDT Office Visit [facility] Hematology & Oncology - [address] [phone] Maria Alejandra Jung MD [address] [facility], [address] [place] [phone] 01/16/2024 14:30 EDT [facility]ointment [facility] Breast Imaging Mammography [address] [phone] documented as of this encounter Procedures Procedure Name Priority Date/Time Associated Diagnosis Comments UA SEDIMENT + REFLEX TO CULTURE STAT 12/11/2023 14:43 EDT Dysuria POCT CSN BARCODE URINE DIPSTICK STAT 12/11/2023 14:42 EDT Dysuria POCT URINE CLINITEK (DIPSTICK) - DOES NOT REFLEX STAT 12/11/2023 14:39 EDT Dysuria POCT URINE DIPSTICK, CLINITEK STAT 12/11/2023 14:39 EDT Dysuria documented in this encounter Results * (ABNORMAL) UA SEDIMENT + REFLEX TO CULTURE (12/11/2023 14:43 EDT) Urine RBC Count, Auto 3 - 10(A) 0 - 2 Cells/HPF 12/11/2023 15:27 EDT [facility] Urine WBC Count, Auto 0 - 3 0 - 3 Cells/HPF 12/11/2023 15:27 EDT [facility] Urine Squamous Count, Auto None Seen None Seen Cells/HPF 12/11/2023 15:27 EDT [facility] Urine Hyaline Cast Count, Auto <=10 <=10 Casts/LPF 12/11/2023 15:27 EDT [facility] Urine Bacteria Count, Auto None Seen None Seen Bacteria/H PF 12/11/2023 15:27 EDT [facility] Urine URINE SPECIMEN OBTAINED BY CLEAN CATCH PROCEDURE / Unknown Urine Collect / Unknown 12/11/2023 14:43 EDT 12/11/2023 14:43 EDT Narrative [facility] - 12/11/2023 15:27 EDT NOTE: Reflex to Urine Culture test is not indicated based on Urine Sediment Analysis results. Urine Sediment Analysis results are unreliable on urines that are unrefrigerated for >2 hrs or refrigerated >8 hrs. Annita Lubin MD URINALYSIS ORDERABLE S [facility] [address] [place] [address] * POCT CSN BARCODE URINE DIPSTICK (12/11/2023 14:42 EDT) Urine URINE SPECIMEN OBTAINED BY CLEAN CATCH PROCEDURE / Unknown Urine Collect / Unknown 12/11/2023 14:42 EDT 12/11/2023 14:42 EDT Jorge Layton MD LAB INFO SERVICE AND SUPPORT & PHONE RESULT Performing Organization Address [facility]/State/ZIP Co de Phone Number [facility] [address] [place] [address] * (ABNORMAL) POCT URINE DIPSTICK, CLINITEK (12/11/2023 14:39 EDT) Color, UA Yellow Yellow 12/11/2023 14:41 [facility] Clarity, UA Clear Clear 12/11/2023 14:41 [facility] Glucose, UA Negative Negative mg/dL 12/11/2023 14:41 [facility] Bilirubin, UA Negative Negative 12/11/2023 14:41 [facility] Ketones, UA Negative Negative 12/11/2023 14:41 [facility] Specific [place], Urine 1.015 1.001 - 1.030 12/11/2023 14:41 [facility] Blood, UA Trace(A) Negative 12/11/2023 14:41 [facility] pH, UA 7.0 <8.5 12/11/2023 14:41 [facility] Protein, UA Negative Negative mg/dL 12/11/2023 14:41 [facility] Urobilinogen, UA 1.0 0.2 - 1.0 mg/dL 12/11/2023 14:41 [facility] Nitrite, UA Negative Negative 12/11/2023 14:41 [facility] Leuk Esterase Negative Negative 12/11/2023 14:41 [facility] HN LAB COMMENT (CLINITEK, UR) Test performed at Urgent Care 12/11/2023 14:41 [facility] Urine URINE SPECIMEN OBTAINED BY CLEAN CATCH PROCEDURE / Unknown 12/11/2023 14:39 EDT 12/11/2023 14:41 EDT Jorge Layton MD POINT OF CARE TEST O RDERABLES [facility] [address] [place] [address] documented in this encounter Visit Diagnoses Diagnosis Dysuria- Primary documented in this encounter Care Teams Bushing And Broach Operator Relationship Specialty Start Date End Date Alina Santacruz MD [address] [place] [phone] PCP - General 08/17/21 documented as of this encounter
--- OUTSIDE RECORDS SUMMARY | 2023-12-31 16:45 | XMS_ITS | Encounter Summary ---
Author Organization [facility] Address [address] [place] [address] Care Team Providers Care Auto Collision Repair Instructor Name Role Phone Alina Santacruz MD Primary Care Provider [phone] Reason for Visit * Consult (Routine) - Authorization Not Required Specialty Diagnoses / Procedures Referred By Contaudi casey Referred To Contact Hematology and Oncology Diagnoses Free monoclonal light chain Alina Santacruz MD [address] [phone] [facility] Ep2 Hem/Onc [address] [place] [address] Referral ID Status Reason Start Date Expiration Date Visits Requested Visits Authorized [id number] Authorization Not Required 1 1 Encounter Details Date Type Department Care Team (Latest Contact Info) Description 07/12/2023 13:15 EST Phlebotomy Only [facility] Hematology & Oncology - Main [place] [address] [place] [address] Blood Doctor, [facility] Hem Onc 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 LINNETTE AMANDA MA 07/12/2023 13:46 documented in this encounter Plan of Treatment Upcoming Encounters Date Type Department Care Team (Late st Contact Info) Description 01/07/2024 12:45 EDT Phlebotomy Only [facility] Hematology & Oncology - [address] [phone] Blood Doctor, [facility] Hem Onc 01/07/2024 13:30 EDT Office Visit [facility] Hematology & Oncology [address] [phone] Maria Alejandra Jung MD [address] [place] [address], [address] [place] [phone] 01/16/2024 14:30 EDT [facility]ointment [facility] Breast Imaging Mammography [address] [phone] documented as of this encounter Procedures Procedure Name Priority Date/Time Associated Diagnosis Comments COMPREHENSIVE METABOLIC PANEL (ONCOLOGY USE ONLY-INC MG) STAT 07/12/2023 13:49 EST Elevated serum immunoglobulin free light chain level COMPLETE BLOOD COUNT AND DIFFERENTIAL STAT 07/12/2023 13:49 EST Elevated serum immunoglobulin free light chain level documented in this encounter Results * COMPREHENSIVE METABOLIC PANEL (ONCOLOGY USE ONLY-INC MG) (07/12/2023 13:49 EST) Sodium 138 136 - 145 mmol/L 07/12/2023 14:24 [facility] Potassium 4.9 3.5 - 5.0 mmol/L 07/12/2023 14:24 [facility] Chloride 103 96 - 110 mmol/L 07/12/2023 14:24 [facility] CO2 Total 27 22 - 32 mmol/L 07/12/2023 14:24 [facility] Glucose 89 70 - 99 mg/dl 07/12/2023 14:24 [facility] BUN 11 10 - 26 mg/dL 07/12/2023 14:24 [facility] Creatinine 0.86 0.52 - 1.04 mg/dL 07/12/2023 14:24 [facility] eGFR 74 >60 mL/min/1.7 3m2 07/12/2023 14:24 [facility] Total Protein 7.2 6.3 - 8.2 g/dL 07/12/2023 14:24 [facility] Albumin 4.2 3.4 - 4.9 g/dL 07/12/2023 14:24 [facility] Alkaline Phosphatase 72 38 - 126 U/L 07/12/2023 14:24 [facility] AST 30 15 - 46 U/L 07/12/2023 14:24 [facility] ALT 17 <35 U/L 07/12/2023 14:24 [facility] Bilirubin, Total 0.5 <1.4 mg/dL 07/12/19 14:24 [facility] Calcium 9.1 8.5 - 10.5 mg/dL 07/12/2023 14:24 [facility] Magnesium 1.9 1.7 - 2.8 mg/dL 07/12/2023 14:24 [facility] Albumin/Globulin Ratio 1.4 1.0 - 2.5 07/12/2023 14:24 [facility] Anion Gap 8 5 - 14 mmol/L 07/12/2023 14:24 [facility] Blood VENOUS BLOOD / Unknown Venipuncture / Unknown 07/12/2023 13:49 EST 07/12/2023 13:52 EST Maria Alejandra Jung MD CHEMISTRY & BLOOD GA S ORDERABLES [facility] [address] [place] [address] * (ABNORMAL) COMPLETE BLOOD COUNT AND DIFFERENTIAL (07/12/2023 13:49 EST) WBC 7.96 4.00 - 12.40 K/cmm 07/12/2023 14:09 [facility] RBC 3.97 3.86 - 5.04 M/cmm 07/12/2023 14:09 [facility] Hemoglobin 12.8 11.6 - 15.2 g/dL 07/12/2023 14:09 [facility] HCT 35.6 34.9 - 44.4 % 07/12/2023 14:09 [facility] MCV 90 81 - 98 fL 07/12/2023 14:09 [facility] MCH 32.2 26.7 - 33.3 pg 07/12/2023 14:09 [facility] MCHC 36.0(H) 32.1 - 35.9 g/dL 07/12/2023 14:09 [facility] RDW-CV 13.6 <14.7 % 07/12/2023 14:09 [facility] RDW-SD 45.0 <50.4 fl 07/12/2023 14:09 [facility] PLT 245 141 - 377 K/cmm 07/12/2023 14:09 [facility] MPV 10.8 9.5 - 12.7 fL 07/12/2023 14:09 [facility] % Neutrophils 56.1 % 07/12/2023 14:09 [facility] % Lymphocytes 32.2 % 07/12/2023 14:09 [facility] % Monocytes 9.9 % 07/12/2023 14:09 [facility] % Eosinophils 1.0 % 07/12/2023 14:09 [facility] % Basophils 0.4 % 07/12/2023 14:09 [facility] % Immature Grans 0.4 % 07/12/19 14:09 [facility] Absolute Neutrophils 4.47 2.20 - 8.85 K/cmm 07/12/2023 14:09 [facility] Absolute Lymphocytes 2.56 1.09 - 3.30 K/cmm 07/12/2023 14:09 [facility] Absolute Monocytes 0.79 0.10 - 0.80 K/cmm 07/12/2023 14:09 [facility] Absolute Eosinophils 0.08 0.03 - 0.61 K/cmm 07/12/2023 14:09 [facility] ABS Basophils 0.03 0.01 - 0.11 K/cmm 07/12/2023 14:09 [facility] Absolute Immature Grans 0.03 0.00 - 0.06 K/cmm 07/12/2023 14:09 [facility] Type of Differential: Auto 07/12/2023 14:09 [facility] Blood VENOUS BLOOD / Unknown Venipuncture / Unknown 07/12/2023 13:49 EST 07/12/2023 13:52 EST Maria Alejandra Jung MD PACKAGES & DNA PROBE ORDERABLES [facility] [address] [place] [address] documented in this encounter Visit Diagnoses Diagnosis Elevated serum immunoglobulin free light chain level- Primary Other nonspecific findings on examination of blood documented in this encounter Care Teams Auto Collision Repair Instructor Relationship Specialty Start Date End Date Alina Santacruz MD [address] [place] [phone] PCP - General 08/17/21 documented as of this encounter
--- OUTSIDE RECORDS SUMMARY | 2023-12-31 16:45 | XMS_ITS | Encounter Summary ---
Author Organization [facility] Address [address] [place] [address] Care Team Providers Care Supervisor Kennel Name Role Phone Alina Santacruz MD Primary Care Provider [phone] Reason for Visit * Reason Comments Back Pain Left side * Consult (Routine/Next Available) - Authorization Not Required Specialty Diagnoses / Procedures Referred By Contaudi t Referred To Contact Pain Medicine Diagnoses Chronic bilateral low back pain with left-sided sciatica Ayush Shirley PA-C [address] [facility] [place] [address] [facility] [address] [place] [address] Referral ID Status Reason Start Date Expiration Date Visits Requested Visits Authorized [id number] Authorization Not Required Specialty Services Required 4 1 1 Encounter Details Date Type Department Care Team (Latest Contact Info) Description 07/17/2023 10:15 EST Initial consult [facility] Interventional Pain [address] [place] [address] Leidy Jimenez PA-C [address] [facility] [address] [place] [address] Radicular pain of left lower extremity (Primary Dx); Chronic bilateral low back pain with left-sided sciatica Social History Tobacco Use Types Packs/Day Years [...] Sign Reading Time Taken Comments Blood Pressure 133/81 07/17/2023 0927 EST Pulse 72 07/17/2023 0927 EST Temperature 36.6 ??C (97.9 ??F) 07/17/2023 0927 EST Respiratory Rate 16 07/17/2023926 EST Oxygen Saturation 98% 07/17/2023 09 EST Inhaled Oxygen Concentration - - Weight - [...] as of this encounter Progress Notes * Leidy Jimenez PA-C - 07/17/2023 1015 EST [facility] Outpatient PAIN Consult Patient Name: Danielle Soto : 1955 Date of Service: 07/17/2023 Primary Care Provider: Alina Santacruz Chief complaint: Chief Complaint Patient presents with Back Pain Left side History of Present Illness/Pain complaint: Danielle Soto is a 68 y.o. 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 She does present with her today. Patient reports that she has a 5-year history of her chronic low back pain with left lower extremity whole leg pain. However, upon further questioning her, the majority of her pain is located in the bottom and top of her foot and in the lateral aspect of her entire left leg. She describes the pain as a burning and sharp sensation. She reports that aggravating factors include walking, standing forany period of time or any physical activity. She does report a history of a fall that occurred about 3 months ago that she feels like overall made her pain worse. She reports that the only thing thathelps her is when she takes her lorazepam which helps relax her. She also notes that laying down makes her pain better. She was seen in and February 2022 who did not feel that her symptoms were related to the cervical myelomalacia from an accident that occurred back in the . She was referred to neurology and was seen in May 2023. 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 She also had an extensive workup to further evaluate her polyneuropathy. This pain has had a negative impact on the patients quality of life as she has not been able to complete her daily activities. Prior interventional pain procedures and response include: Her history in regards to previous injections is unclear. She tells me today that she does not remember having any lumbar injections in the past. Conservative treatment Physical therapy: Patient has tried physical therapy multiple times in the past. Medications associated with chronic pain: Previous: Gabapentin Amitriptyline, but woman with Current: Pregabalin Duloxetine Morphine ( patient is taking 30mg per day. She was on 100mg in the past ) Anticoagulation: none Imaging/Test Review EMG/NCS: Electrodiagnostic Findings For waveforms/values of EMG/nerve conduction study please see accompanying scanned document in the scans/media tab in EPIC. Nerve Conduction: 1. Left median motor response was normal. 2. Left median sensory response demonstrated significant peak difference during the palm of the wrist (2 ms). 3. Left median, ulnar transcarpal comparison study demonstrated normal peak difference between the median and the ulnar sensory responses (0.08 ms). 4. Left ulnar motor response was normal. 5. Left ulnar sensory response demonstrated prolonged peak latency (4.0 ms) and decreased amplitude(10.9 ??V). 6. Left radial sensory response was normal. 7. Bilateral peroneal motor responses recorded at the extensor digitorum brevis demonstrated symmetric, decreased amplitude (1.5 mV on the left, 1.4 mV on the right). 8. Bilateral peroneal motor responses recorded at the tibialis anterior were normal and symmetric. 9. Bilateral tibial motor responses were normal and symmetric. 10. Bilateral sural sensory responses were unable to be evoked. 11. Bilateral superficial peroneal sensory responses were unable to be evoked. Needle EM. Left medial gastrocnemius muscle demonstrated motor unit potentials with reduced activation. There is no abnormal spontaneous activity. 2. Left tibialis anterior, deltoid, and triceps brachii muscles were normal. There is no abnormal spontaneous activity. Motor unit potentials demonstrated normal morphology and recruitment. Electrodiagnostic Impression: This is an abnormal study. There is electrodiagnostic evidence of the following: Length-dependent sensory axonal polyneuropathy This is supported by inability to evoke sensory responses in the lower extremity as well as mildly decreased amplitude of the ulnar sensory response. There is no evidence of bilateral lumbosacral plexopathy, myopathy, or mononeuropathy of the peroneal/tibial nerves. There is no evidence of left brachial plexopathy or mononeuropathy of the median/ulnar nerves. X ray lumbar spine 02/21/2022: IMPRESSION Findings/Impression: No evidence of dynamic instability with flexion and extension allowing for differences in projection. Vascular calcifications are present. Multilevel degenerative changes are again noted. MRI lumbar spine 12/29/2021: FINDINGS: There are 5 nonrib-bearing lumbar vertebrae. SURGICAL CHANGES: None. ALIGNMENT: Levocurvature curvature of the lumbar spine with the apex at L2-L3 level. 2 mm retrolisthesis of L5over S1.. BONES: Multilevel degenerative endplate changes. No concerning lesions. INTERVERTEBRAL DISCS: Multilevel degenerative disc disease with disc height space loss most apparent at L5-S1. SPINAL CANAL: The conus terminates normally at L1. No abnormality of the cauda equina. No fluid collections. VISIBLE EXTRASPINAL SOFT TISSUES: Right-sided renal cyst. EVALUATION BY LEVEL: T11-T12: No significant posterior disc bulge or spinal canal stenosis. T12-L1: No significant disc bulge. No spinal canal stenosis. No neural foraminal stenosis. L1-L2: Circumferential disc bulge without significant spinal canal stenosis. Mild right neural foraminal narrowing. No left neural foraminal stenosis. L2-L3: Circumferential disc bulge with no significant spinal canal stenosis. Mild right neural foraminal stenosis. No significant left neural foraminal stenosis. Mild facet arthropathy. L3-L4: Circumferential disc bulge with a superimposed central zone disc protrusion and dorsal epidural fat, resulting in mild spinal canal stenosis. Mild left neural foraminal stenosis. Mild facet arthropathy. No significant right neural foraminal narrowing. L4-L5: Circumferential disc bulge without significant spinal canal stenosis. Moderate left and mildright neural foraminal stenosis. Compression and flattening of left exiting L4 nerve root. No significant facet arthropathy. L5-S1: Circumferential disc bulge with a superimposed central zone disc protrusion without significant spinal canal stenosis. Moderate bilateral neural foraminal stenosis with compression of bilateral exiting L5 nerve roots. No significant facet arthropathy. IMPRESSION 1. Central zone disc protrusion at L3-L4, , L5-S1 resulting in mild spinal canal stenosis. 2. Varying degrees of neural foraminal stenosis most apparent on the left at L4- 5, and bilaterally at L5-S1 where it is moderate, flattening the exiting left L4 and bilateral L5 nerve roots. Allergies Allergen Reactions Adhesive Tape-Silicones Outpatient Medications Marked as Taking for the 07/17/23 encounter (Initial consult) with Leidy Jimenez PA-C Medication Sig Dispense Refill atenoloL (TENORMIN) 100 mg tablet Take 1 Tablet by mouth daily. atorvastatin (LIPITOR) 10 mg tablet Take 1 Tablet by mouth daily. Cholecalciferol, Vitamin D3, 50 mcg capsule Take 1 Capsule by mouth daily. cyanocobalamin (VITAMIN B-12) 1,000 mcg tablet [...] 1 Tablet by mouth every 12 hours. pregabalin (LYRICA) 150 mg capsule Take 1 Capsule by mouth 2 times daily. tiotropium-olodateroL (STIOLTO RESPIMAT) 2.5-2.5 mcg/actuation inhaler Inhale as directed daily. History reviewed. No pertinent past medical history. History reviewed. No pertinent surgical history. Social History Socioeconomic History Marital status: Single Spouse name: Not on file Number of children: Not on file Years of education: Not on file Highest education level: Not on file Occupational History Not on file Tobacco Use Smoking status: Every Day Current packs/day: 0.25 Average packs/day: 0.3 packs/day for 21.0 years (5.3 ttl pk-yrs) Types: Cigarettes Smokeless tobacco: Never Substance and Sexual Activity Alcohol use: Not Currently Drug use: Yes Types: Marijuana Sexual activity: Not on file Other Topics Concern Not on file Social History Narrative Not on file Social Determinants of Health Financial Resource Strain: Not on file Food Insecurity: Not on file Transportation Needs: Not on file Physical Activity: Not on file Stress: Not on file Social Connections: Not on file Housing Stability: Not on file History reviewed. No pertinent family history. Review of Systems A 10 point review of system was performed and reviewed. Pertinent positives have been included in HPI and past medical history. All others negative. Physical Examination Vitals: Blood pressure 133/81, pulse 72, temperature 36.6 ??C (97.9 ??F), temperature source Tympanic, resp. rate 16, SpO2 98 %. General: Pleasant, cooperative, very tearful through out exam Neuro: Alert and oriented to person, place, time and purpose. Posture: poor posture Gait: slow antalgic gait Palpation: There are no palpable masses, lesions or deformities. Skin: Intact with no stigmata of underlying disease. ROM: full ROM of lumbar spine, + facet loading Strength: LOWER Right Left Hip flexion ( L1 L2) 5/5 5/5 Knee extension (L2-L4) 5/5 5/5 Ankle dorsiflexion (L5, +/-L4) 5/5 5/5 Extensor hallucis longus (L5) 5/5 5/5 Ankle plantarflexion (S1) 5/5 5/5 Assessment and Plan Encounter Diagnoses Name Primary? Radicular pain of left lower extremity Yes Chronic bilateral low back pain with left-sided sciatica This is a 68-year-old female who presents with left leg pain in a nondermatomal pattern. She has had an extensive workup including MRIs of her back, EMGs, orthopedic, and neurology workup. She was tearful throughout today's discussion as she is exhausted pain. We did review her MRI and she does have disc bulges at multiple levels with some flattening of the exiting left L4 and bilateral L5 nerve roots that could be contributing to her pain. We had a really transparent discussion regarding expectations from the injection and I explained to her that the injection has a 50/50 chance of working, and it it does help - it may only help to a certain degree. I do not think the injection will help 100% of her pain and I explained that her pain is most likely chronic. She was understanding of this,although very tearful. Interventional Plan: Recommend proceeding with lumbar epidural L5-S1. Regarding the above interventions, the patient has been educated regarding the risks (including bleeding, infection, increased pain, nerve damage, or allergic reaction), benefits, and alternatives. The patient states he/she understands and is eager to proceed. Non- Interventional Plan: Continue current medications including pregabalin and cymbalta. Could consider trial of muscle relaxant such as methocarbamol. However, would recommend close follow-up with PCP due to possible polypharmacy/sedation from medications. I do think the methocarbamol would be a better option over lorazepam. Patient will discuss this further with her PCP. Regarding the above medications, the [facility] is a consultation service with regard to medications and as such we do not take over the writing of routine prescriptions for patients. We are happy to make recommendations regarding pain medications for the patient's PCP to consider implementing. Thank you for the consultation, please call with any questions. Leidy Jimenez PA-C Interventional Pain Medicine [facility] 07/17/23 I spent a total of 60 minutes on the date of this encounter meeting with the patient and reviewing documentation/coordinating care as described in the above note. Dr. Alcocer was the attending physician available in the clinic today if needed. Case discussed with Dr. Alcocer. documented in this encounter Plan of Treatment Upcoming Encounters Date Type Department Care Team (Late st Contact Info) Description 01/07/2024 12:45 EDT Phlebotomy Only [facility] Hematology & Oncology [address] [address] Blood Doctor, [facility] Hem Onc 01/07/2024 13:30 EDT Office Visit [facility] Hematology & Oncology - [address] [address] Maria Alejandra Jung MD [address] [facility], Level 2 [place] [phone] 01/16/2024 14:30 EDT [facility] - [address] [phone] documented as of this encounter Visit Diagnoses Diagnosis Radicular pain of left lower extremity- Primary Thoracic or lumbosacral neuritis or radiculitis, unspecified Chronic bilateral low back pain with left-sided sciatica documented in this encounter Orders Outpatient Referral Count Last Ordered Date st Ordered Date AMB CONS/FOLLOW UP PAIN INTERVENTIONAL 1 documented in this encounter Care Teams Supervisor Kennel Relationship Specialty Start Date End Date Alina Santacruz MD [address] [place] [phone] PCP - General 08/17/21 documented as of this encounter
--- OUTSIDE RECORDS SUMMARY | 2023-12-31 16:45 | XMS_ITS | Encounter Summary ---
Author Organization [facility] Address [address] [place] [address] Care Team Providers Care Speed Reading Teacher Name Role Phone Alina Santacruz MD Primary Care Provider [phone] Reason for Referral * Cardiology (Routine/Next Available) - New Request Specialty Diagnoses / Procedures Referred By Contaudi casey Referred To Contact Diagnoses Preop examination Procedures EKG 12-LEAD Alina Santacruz MD [address] [address] Referral ID Status Reason Start Date Expiration Date V isits Requested Visits Authorized [id number] New Request 10/15/2023 1 1 Encounter Details Date Type Department Care Team (Latest Contact Info) Description 10/15/2023 Transcribe Orders [facility] Alina Olivares MD [address] [place] [address] Other specified pre-operative examination (Primary Dx); Preop examination Social History Tobacco Use Types Packs/Day Years [...] Yes 07/12/2023 documented as of this encounter Plan of Treatment Upcoming Encounters Date Type Department Care Team (Late st Contact Info) Description 01/07/2024 12:45 EDT Phlebotomy Only [facility] Hematology & Oncology [address] [phone] Blood Doctor, [facility] Hem Onc 01/07/2024 13:30 EDT Office Visit [facility] Hematology & Oncology [address] [phone] Maria Alejandra Jung MD [address] [place] [address], Level [address] [place] [address] 01/16/2024 14:30 EDT Appointment [facility] Breast Imaging Mammography [address] [phone] Scheduled Orders Name Type Priority Associated Diagnoses Orde r Schedule COMPLETE BLOOD COUNT Lab Routine Other specified pre-operative examination Expected: 10/15/2023 (Approximate), Expires: 01/13/2024 documented as of this encounter Results * EKG 12-LEAD (10/15/2023 15:17 EDT) 10/15/2023 15:1 7 EDT Narrative [facility] EKG - 10/16/2023 6:56 EDT ? [facility] ? Test Date: ?2023-10-15 Pat Name: ? DANIELLE GILMAN ? Department: ? Room: ? Gender: ? Female ? Objects Conservator: ?? [id number] : ?1955 ? Requested By: LAN ALINA Order Number: [id number] ? Reading MD: ?? MARGARITO WEBER MD ? Measurements Intervals ?[place] ? Rate: ? 60 ? P: ?29 UT: ? 201 ?QRS: ?11 QRSD: ? 106 ?T: ?49 QT: ? 408 ? QTc: ?409 ? Interpretive Statements SINUS RHYTHM Compared to ECG 06/11/2023 14:20:49 First degree AV block no longer present I reviewed the tracing and have either agreed or edited the findings in this report. Electronically Signed On 10-16-2023 06:56:16 EDT by MARGARITO WEBER MD. Procedure Note Margarito Weber MD - 10/16/2023 [facility] Test Date: 2023-10-15 Pat Name: DANIELLE GILMAN Department: Room: Gender: Female Objects Conservator: [id number] : 1955 Requested By: LAN ADLER Order Number: [id number] Reading MD: MARGARITO WEBER MD Measurements Intervals [place] Rate: 60 P: 29 UT: 201 QRS: 11 QRSD: 106 T: 49 QT: 408 QTc: 409 Interpretive Statements SINUS RHYTHM Compared to ECG 06/11/2023 14:20:49 First degree AV block no longer present I reviewed the tracing and have either agreed or edited the findings inthis report. Electronically Signed On 10-16-2023 06:56:16 EDT by MARGARITO DAVIS. Alina Santacruz MD CARDIAC ECG ORDERABL ES [facility] EKG documented in this encounter Visit Diagnoses Diagnosis Other specified pre-operative examination- Primary Preop examination Preoperative examination, unspecified Preop examination Preoperative examination, unspecified documented in this encounter Care Teams Speed Reading Teacher Relationship Specialty Start Date End Date Alina Santacruz MD [address] [place] [phone] PCP - General 08/17/21 documented as of this encounter
--- OUTSIDE RECORDS SUMMARY | 2023-12-31 16:45 | XMS_ITS | Encounter Summary ---
Author Organization [facility] Address [address] [place] [address] Care Team Providers Care Local City Driver Name Role Phone Alina Santacruz MD Primary Care Provider [phone] Reason for Visit * Reason Onset Date Comments Appointment Related 08/13/2023 Encounter Details Date Type Department Care Team (Late st Contact Info) Description 08/13/2023 Telephone [facility] Interventional Pain [address] [place] [address] Leidy Jimenez PA-C [address] [facility] [address] [place] [address] Appointment Related Social History Tobacco Use Types [...] encounter Miscellaneous Notes * Telephone Encounter - Brooklyn Acevedo - 08/13/2023 1424 EDT Called patient to ask her to obtain note as Allie kwong from 08/06/2023 requires record release. She states she has more appointments set up with allie elenita and that she is cancelling her follow up with us. documented in this encounter Plan of Treatment Upcoming Encounters Date Type Department Care Team (Late st Contact Info) Description 01/07/2024 12:45 EDT Phlebotomy Only [facility] Hematology & Oncology [address] [phone] Blood Doctor, [facility] Hem Onc 01/07/2024 13:30 EDT Office Visit [facility] Hematology & Oncology [address] [phone] Maria Alejandra Jung MD [address] [place] [address], [address] [place] [phone] 01/16/2024 14:30 EDT Appointment [facility] Breast Imaging Mammography - [address] [phone] documented as of this encounter Visit Diagnoses Not on filedocumented in this encounter Care Teams Local City Driver Relationship Specialty Start Date End Date Alina Santacruz MD [address] [place] [phone] PCP - General 08/17/21 documented as of this encounter
--- OUTSIDE RECORDS SUMMARY | 2023-12-31 16:45 | XMS_ITS | Encounter Summary ---
Author Organization [facility] Address [address] [place] [address] Care Team Providers Care Marble Cutter Name Role Phone Alina Santacruz MD Primary Care Provider [phone] Reason for Visit * Reason Onset Date Comments Social Work 07/24/2023 Care coordinatio n Encounter Details Date Type Department Care Team ([facility] Contact Info) Description 07/24/2023 Telephone [facility] Hematology & [place] [address] Matilda Witt Social Work (Care coordination) Social History Tobacco Use Types Packs/Day Years [...] encounter Miscellaneous Notes * Telephone Encounter - Matilda Witt - 07/24/2023 0922 EST I was able to reach pt today and explained the purpose for my call. Pt shared that she has a Uke Driver, Hoa and she thinks her CM is through Home Health. She also has someone who cleans her apartment every week. Reports she has a lot of pain her her leg and is working with the Pain Clinic. She has a car but says it's very difficult for her to drive due to leg pain. I made her aware of [facility] and suggested she talk with her CM about connecting with [facility]. Pt given my name and # and she will let her CM know that I called. documented in this encounter Plan of Treatment Upcoming Encounters Date Type Department Care Team (Late st Contact Info) Description 01/07/2024 12:45 EDT Phlebotomy Only [facility] Hematology & Oncology - [address] [phone] Blood Doctor, [facility] Hem Onc 01/07/2024 13:30 EDT Office Visit [facility] Hematology & Oncology [address] [phone] Maria Alejandra Jung MD [address] [facility], [address] [place] [phone] 01/16/2024 14:30 EDT [facility]ointment [facility] - [address] [phone] documented as of this encounter Visit Diagnoses Not on filedocumented in this encounter Care Teams Marble Cutter Relationship Specialty Start Date End Date Alina Santacruz MD [address] [phone] PCP - General 08/17/21 documented as of this encounter
--- OUTSIDE RECORDS SUMMARY | 2023-12-31 16:45 | XMS_ITS | Encounter Summary ---
Author Organization [facility] Address [address] [place] [address] Care Team Providers Care Delivery Rn Name Role Phone Alina Santacruz MD Primary Care Provider [phone] Encounter Details Date Type Department Care Team (Latest Contact Info) Description 12/31/2023 Transcribe Orders [facility] CLINICAL SUPPORT Alina Olivares MD [address] [place] [address] [place] [phone] Other specified disorders of bone density and structure, unspecified site (Primary Dx); Essential (primary) hypertension Social History Tobacco Use Types Packs/Day Years [...] Phlebotomy Only [facility] Hematology & Oncology [address] [phone] Blood Doctor, [facility] Hem Onc 01/07/2024 13:30 EDT Office Visit [facility] Hematology & Oncology [address] [phone] Maria Alejandra Jung MD [address] [place] [address], [facility], Level 2 [place] [phone] 01/16/2024 14:30 EDT Appointment [facility] Breast Imaging Mammography [address] [phone] Scheduled Orders Name Type Priority Associated Diagnoses Orde r Schedule VITAMIN D (25,OH) Lab Routine Other specified disorders of bone density and structure, unspecified site Essential (primary) hypertension Expected: 12/31/2023 (Approximate), Expires: 03/30/2024 COMPREHENSIVE METABOLIC PANEL (CMP) Lab Routine Other specified disorders of bone density and structure, unspecified site Essential (primary) hypertension Expected: 12/31/2023 (Approximate), Expires: 03/30/2024 COMPLETE BLOOD COUNT Lab Routine Other specified disorders of bone density and structure, unspecified site Essential (primary) hypertension Expected: 12/31/2023 (Approximate), Expires: 03/30/2024 documented as of this encounter Visit Diagnoses Diagnosis Other specified disorders of bone density and structure, unspecified site- Primary Essential (primary) hypertension Unspecified essential hypertension documented in this encounter Care Teams Delivery Rn Relationship Specialty Start Date End Date Alina Santacruz MD [address] [place] [phone] PCP - General 08/17/21 documented as of this encounter
--- OUTSIDE RECORDS SUMMARY | 2023-12-31 16:45 | XMS_ITS | Encounter Summary ---
Author Organization [facility] Address [address] [place] [address] Care Team Providers Care Staff Reporter Name Role Phone Alina Santacruz MD Primary Care Provider [phone] Encounter Details Date Type Department Care Team (Latest Contact Info) Description 10/15/2023 15:00 EDT - 10/15/2023 23:59 EDT Hospital Encounter [facility] [place] [address] Estrada Michel MD [address] [place] [address] [place] [phone] Discharge Disposition: Home or Self Care Social [...] Yes 07/12/2023 documented as of this encounter Medications at Time of Discharge [...] tablet Take 1 Tablet by mouth daily. fosinopriL-hydrochlorot hiazide (MONOPRIL-HCT) 10-12.5 mg per tablet Take 1 [...] provided by GI office. 1 Kit 11/08/2022 tiotropium-olodateroL (STIOLTO RESPIMAT) 2.5-2.5 mcg/actuation inhaler Inhale as directed daily. documented as of this encounter Discharge Disposition Disposition Code Departure Means Destination Home or Self Care documented in this encounter Plan of Treatment Upcoming Encounters Date Type Department Care Team (Late st Contact Info) Description 01/07/2024 12:45 EDT Phlebotomy Only [facility] Hematology & Oncology - [address] [phone] Blood Doctor, [facility] Hem Onc 01/07/2024 13:30 EDT Office Visit [facility] Hematology & Oncology - [address] [address] Maria Alejandra Jung MD [address] [place] [address], [facility], Level 2 [place] [phone] 01/16/2024 14:30 EDT Appointment [facility] Breast Imaging Mammography - [address] [phone] documented as of this encounter Procedures Procedure Name Priority Date/Time Associated Diagnosis Comments ORDERS - SCANNED 10/23/2023 11:23 EDT documented in this encounter Results * ORDERS - SCANNED (10/23/2023 11:23 EDT) 10/23/2023 11:2 3 EDT Scan 2 Surveying Technician ADMISSION ORDERABLE S documented in this encounter Visit Diagnoses Not on filedocumented in this encounter Care Teams Staff Reporter Relationship Specialty Start Date End Date Alina Santacruz MD [address] [place] [phone] PCP - General 08/17/21 documented as of this encounter
--- OUTSIDE RECORDS SUMMARY | 2023-12-31 16:45 | XMS_ITS | Encounter Summary ---
Author Organization [facility] Address [address] [place] [address] Care Team Providers Care Clinical Research Management Associate Name Role Phone Alina Santacruz MD Primary Care Provider [phone] Encounter Details Date Type Department Care Team (Latest Contact Info) Description 07/18/2023 8:00 EST - 07/18/2023 23:59 EST Hospital Encounter [facility] Xray [address] [place] [address] Discharge Disposition: Home or Self Care Social [...] Info) Description 01/07/2024 12:45 EDT Phlebotomy Only [facility] Hematology & Oncology [address] [phone] Blood Doctor, [facility] Hem Onc 01/07/2024 13:30 EDT Office Visit [facility] Hematology & Oncology [address] [address] Maria Alejandra Jung MD [address] [facility], Level 2 [place] [phone] 01/16/2024 14:30 EDT [facility]ointment [facility] - [facility] [address], [place] [phone] documented as of this encounter Procedures Procedure Name Priority Date/Time Associated Diagnosis Comments PAIN CLINIC FL LUMBAR INJECTION Routine 07/18/2023 16:09 EST documented in this encounter Results * PAIN CLINIC FL LUMBAR INJECTION (07/18/2023 16:09 EST) Narrative 07/18/2023 16:10 EST This is a non-reportable exam. Ana María Alcocer MD IMG OTHER IMAGING OR DERABLES documented in this encounter Visit Diagnoses Not on filedocumented in this encounter Care Teams Clinical Research Management Associate Relationship Specialty Start Date End Date Alina Santacruz MD [address] [place] [phone] PCP - General 08/17/21 documented as of this encounter
--- OUTSIDE RECORDS SUMMARY | 2023-12-31 16:45 | XMS_ITS | Encounter Summary ---
Author Organization [facility] Address [address] [place] [address] Care Team Providers Care Restaurant Kitchen And Service Manager Name Role Phone Alina Santacruz MD Primary Care Provider [phone] Encounter Details Date Type Department Care Team (Late Contact Info) Description 10/15/2023 Orders Only [facility]INICAL [facility] [place] Shannan Bennett MA Preop examination Social History Tobacco Use Types [...] Encounters Date Type Department Care Team (Late Contact Info) Description 01/07/2024 12:45 EDT Phlebotomy Only [facility] Hematology & Oncology - [facility] [address], [place] [phone] Blood Doctor, [facility] Hem Onc 01/07/2024 13:30 EDT Office Visit [facility] Hematology & Oncology - [address] [phone] Maria Alejandra Jung MD 111 [facility], Level 2 [place] [phone] 01/16/2024 14:30 EDT [facility]ointment [facility]ammography - [address] [phone] documented as of this encounter Procedures Procedure Name Priority Date/Time Associated Diagnosis Comments ECG REPORT - SCANNED 10/16/2023 7:03 EDT EKG 12-LEAD Routine 10/15/2023 15:17 EDT Preop examination documented in this encounter Results * ECG REPORT - SCANNED (10/16/2023 7:03 EDT) 10/16/2023 7:03 EDT Scan 2 Director For Beauty [employer] PROCEDURE/MINOR OMID GICAL ORDERABLES * EKG 12-LEAD (10/15/2023 15:17 EDT) 10/15/2023 15:1 7 EDT Narrative [facility] EKG - 10/16/2023 6:56 EDT ? [facility] ? Test Date: ?2023-10-15 Pat Name: ? DANIELLE GILMAN ? Department: ? Room: ? Gender: ? Female ? Compactor Driver: ?? [id number] : ?1955 ? Requested By: LAN ADLER Order Number: [id number] ? Reading MD: ?? MARGARITO WEBER MD ? Measurements Intervals ?Morris ? Rate: ? 60 ? P: ?29 SC: ? 201 ?QRS: ?11 QRSD: ? 106 [...] Note Margarito Weber MD - 10/16/2023 [facility] Test Date: 2023-10-15 Pat Name: DANIELLE GILMAN Department: Room: Gender: Female Compactor Driver: [id number] : 1955 Requested By: LAN ADLER Order Number: [id number] Reading MD: MARGARITO WEBER MD Measurements Intervals Morris Rate: 60 P: 29 SC: 201 QRS: 11 QRSD: 106 T: 49 QT: 408 QTc: 409 Interpretive Statements SINUS RHYTHM Compared to ECG 06/11/2023 14:20:49 First degree AV block no longer present I reviewed the tracing and have either agreed or edited the findings inthis report. Electronically Signed On 10-16-2023 06:56:16 EDT by MARGARITO DAVIS. Alina Santacruz MD CARDIAC ECG ORDERABL ES [facility] EKG documented in this encounter Visit Diagnoses Diagnosis Preop examination Preoperative examination, unspecified documented in this encounter Care Teams Restaurant Kitchen And Service Manager Relationship Specialty Start Date End Date Alina Santacruz MD [address] [place] [phone] PCP - General 08/17/21 documented as of this encounter
--- OUTSIDE RECORDS SUMMARY | 2023-12-31 16:45 | XMS_ITS | Encounter Summary ---
Author Organization [facility] Address [address] [place] [address] Care Team Providers Care Full Stack Developer Name Role Phone Alina Santacruz MD Primary Care Provider [phone] Reason for Visit * Reason Comments Back Pain Left side * Prior Authorization (Routine) - Authorization Not Required Specialty Diagnoses / Procedures Referred By Contact Referred To Contact Anesthesiology / Pain Medicine Diagnoses LESI Procedures AR NJX DX/THER SBST INTRLMNR LMBR/SAC W/IMG GDN PAIN CLINIC PROCEDURE [facility] [address] [facility] [place] [address] Ana María Alcocer MD [address] [employer] [address] [place] [phone] Referral ID Status Reason Start Date Expiration Date Visits Requested Visits Authorized [id number] Authorization Not Required 1 1 Encounter Details Date Type Department Care Team (Latest Contact Info) Description 07/18/2023 15:15 EST Office Visit [facility] Interventional Pain [address] [place] [address] Ana María Alcocer MD [address] [employer] [address] [place] [phone] Radicular pain of left lower extremity (Primary Dx) Social History Tobacco Use Types [...] Sign Reading Time Taken Comments Blood Pressure 123/72 07/18/2023 1552 EST Pulse 64 07/18/2023 1552 EST Temperature 36.7 ??C (98.1 ??F) 07/18/2023 1421 EST Respiratory Rate 16 07/18/2023 1552 EST Oxygen Saturation 97% 07/18/2023 1421 EST Inhaled Oxygen Concentration - - Weight [...] Yes 07/12/2023 documented as of this encounter Patient Instructions * Patient Instructions* Beka Turner RN - 07/18/2023 15:15 EST [facility] [address] [address] Patient Instructions You have had your lumbosacral Epidural Steroid Injection. The purpose of this procedure has been toplace medication which may help relieve your pain. Steroid may be used to decrease the swelling andnerve irritation which may be causing your pain. The following information should help you over the next few days regarding what you may expect. Please take it easy for the rest of today. DO NOT drive a car for the remainder of the day. If you feel sore where the needle(s) entered for the block or develop a flare-up of pain over the next few days, please use ice on the area. You may leave the ice on for up to 20 minutes at a time. Do not use heat, as this may cause swelling. As long as your primary doctor has indicated no restrictions, you may take a mild pain medicine, such as acetaminophen (Tylenol), ibuprofen (Advil, Nuprin, Motrin IB, etc.) or aspirin, if needed. The steroid injection usually takes a few days to become effective. On average, you may notice somerelief in 3 -5 days. However, it may take up to 10 - 14 days to know whether the injection was helpful. If the block causes numbness/weakness, it should wear off within a few hours. If the area that the needle(s) were inserted becomes hot, red, swollen, or increasingly tender, or if you develop a fever (100.5 or greater) or chills along with these symptoms, please call our office immediately. If you develop increasingly severe back pain, continued numbness or weakness of the legs or changesin your bladder or bowel functions, please call our office immediately. Instructions for follow-up If you have any questions about your block, please call Patient Education Topic: Method: Handout and Verbal Taught to: Patient Barriers: None Outcomes: independent and verbalized understanding Beka Turner RN documented in this encounter Progress Notes * Ana María Alcocer MD - 07/18/2023 1515 EST Patient Name: Danielle Soto : 1955 Date of Service: 07/18/2023 Chief Complaint: Chief Complaint Patient presents with Back Pain Left side Pre Owned Sales Consultant: Ana María Alcocer MD Military Science Instructor: None Procedure: Lumbar epidural steroid injections at L4-5 Interval History: Please refer to Leidy Jimenez's note on 07/17/23 for full details regarding the patient's pain complaint. The patient reports no recent changes in the character, quality, or distribution of the pain. Thereare no recent onset of new associated symptoms such as changes in strength, sensation, or bladder control. All previous medical records including current medications, anticoagulation status, any signs of current infection, and new imaging were reviewed. Injection History: 07/18/2023: L4-5 ALCIDES *ALCIDES initially trialed ALCIDES at L5-S1 with contrast spread most consistent with intrathecal spread. Needle withdrawn and epidural attempted at L4-5 with success* Allergies Allergen Reactions Adhesive Tape-Silicones Current Outpatient Medications on File Prior to Visit Medication Sig Dispense Refill albuterol 90 mcg/actuation [...] Reversal. (Patient not taking: Reported on 07/17/2023) pregabalin (LYRICA) 150 mg capsule Take 1 [...] 2.5-2.5 mcg/actuation inhaler Inhale as directed daily. No current facility-administered medications on file prior to visit. Patient Vitals for the past 24 hrs: BP Temp Temp src Pulse Resp SpO2 07/18/23 1552 123/72 -- -- 64 16 -- 07/18/23 1421 107/64 36.7 ??C (98.1 ??F) Tympanic 70 16 97 % Review of Systems: Negative for any fever, chills, nausea/vomiting, headaches, chest pain, palpitations, shortness of breath, bladder/bowel incontinence. No easy bruising, bleeding, anti-coagulation or known recent infections. Diagnostic studies:See EMR for details. Physical Exam: Vitals: BP 123/72 (BP Cuff Location: Right arm, BP Patient Position: Sitting, BP Cuff Sizes: Adult,long) Pulse 64 Temp 36.7 ??C (98.1 ??F) (Tympanic) Resp 16 SpO2 97% General: Patient is alert and oriented, no acute distress Lungs: symmetric chest rise, no evidence of labored breathing Skin: clear, warm, dry and intact and no rashes, bruises or petechiae noted over site of injection Assessment: 1. Radicular pain of left lower extremity Plan: Ms. Danielle Soto is a 68 y.o. female that presents to the pain clinic to undergo lumbar epidural steroid injection. All risks, benefits, and alternatives were thoroughly explained to Ms. Danielle Soto who verbally communicated understanding of the management plan. I have independently reviewed the relevant imaging and plan to proceed with a therapeutic LESI Followup: With Leidy in 4 weeks PROCEDURE: The patient gave informed written consent to proceed with this procedure following a detailed discussion of the risks and benefits associated with epidural steroid injection in the lumbar spine including but not limited to infection, bleeding, headache, intrathecal injection, allergic reaction, further exacerbation of current symptoms, neurological injury, and lack of efficacy. The patient was then placed in the prone position, the skin over the lumbar area was prepped with chlorhexadine, and the site was marked and draped with sterile towels. Strict sterile technique was maintained throughout the procedure. A timeout was performed with full staff present to identify the patient, verify theprocedure being performed, and review allergies. Fluoroscopy was used to visualize the L4-L5 disc space. The skin and subcutaneous tissue over this level was anesthetized by infiltration of 1% lidocaine. An 18 guage touhy needle was inserted under fluoroscopic guidance by coaxial technique and advanced towards the interspace. Loss of resistance with saline was used to find the epidural space. There was no paresthesia. Contrast dye was injected under live fluoroscopy demonstrating a typical epidural pattern with no evidence of intravascular orintrathecal injection. After negative aspiration, 5mg dexamethasone and 4cc of normal saline was injected. The needle was then flushed and withdrawn. ALCIDES initially trialed ALCIDES at L5-S1 with contrast spread most consistent with intrathecal spread. Needle withdrawn and epidural attempted at L4-5 withsuccess. Discussed risk of PDPH with the patient prior to discharge. Patient reported history of migraines and discussed that this would be a headache different from her usual. Patient also discussed concerns about harming herself if her pain does not improve. Patient currently has no active thoughts of harming herself. Will plan to provide patient with nursing phone call tomorrow to check in. Number for suicide hotline provided to the patient. The patient tolerated the procedure well, there were no apparent complications, and she was discharged in stable condition. Written and verbal discharge instructions were reviewed with the patient prior to discharge. 07/18/2023 15:52 Pain Score (from Vitals) Final score 10 Location 4 Fluoroscopic images were saved during the procedure. Karol Alcocer MD 07/18/2023 16:23 * Suyapa Duron MA - 07/18/2023 1515 EST [facility] Rooming Note Does patient have a Warehouse Technician? yes Is patient NPO? (Solids since midnight & liquids for 4 hrs) no Blood Thinners: Is patient on Blood Thinners? no If yes, taking? If stopped, who authorized stopping? Related comments: Infections: Any recent infections, fever of illnesses? no If on antibiotics, is it 7-10 days past the date of completion of antibiotics? no : (for females of child-bearing age) Is there a chance current ? Do you have any type of implanted device? no Vaccination: Have you had or are you planning to have a vaccination in the 2 weeks? no Other: no Oswestry Low Back Disability Questionnaire Pain Intensity Pain killers give very little relief from pain (4) Personal Care (e.g. Washing, Dressing) I can look after myself normally without causing extra pain (0) Lifting I can lift very light weights (4) Walking Pain does not prevent me walking any distance (0) Sitting I can sit in any chair as long as I like (0) Standing Pain prevents me from standing for more than 30 minutes (3) Sleeping Even when I take medication, I have less than 4 hrs sleep (3) Social Life My social life is normal and gives me no extra pain (0) Travelling I can travel anywhere without extra pain (0) Employment/Homemaking My normal homemaking/ job activities do not cause pain (0) * Beka Turner RN - 07/18/2023 1515 EST ATTENTION: An active Time-Out initiated by the Provider requires that all members of the proceduralsupport team are present and must stop activity until the Time-Out is completed. The Nurse will have in their possession the signed consent to compare to the verbal verification ofthe items below: [Verified] Patient identifier #1: Full Name [Verified] Patient Identifier #2: Date of [Verified] No allergy to sterile prep products, steroids, local anesthetics, band-aids, or contrastdye [Verified] Full team and patient verification of location of pain and procedure to be performed [Verified] Site marked (Region and/or Laterality) [Verified] Presence of Implantable Devices [Verified] Safety devices are in place (Grounding pad, X-rays available, and/or Magnet) [Verified] Consent signed and matches planned procedure and site marking [Verified] Active verbal communication by the entire procedural team was completed. 1545 - Pt states she has a headache following procedure. Dr. Alcocer notified. 1553 - Pt states her headache is resolving. 1600 - Pt states that her pain has been so intense that if it does not resolve she is concerned that she may hurt herself. Pt states that she has spoken about this with her primary care doctor and agreed to call her doctor if she has concerns of self harm. Pt states that she does not intend to harmherself right now or any time soon. Pt educated about suicide prevention hotline - 988. Dr. Alcocer notified of all above, at bedside with patient. documented in this encounter Plan of Treatment Upcoming Encounters Date Type Department Care Team (Late st Contact Info) Description 01/07/2024 12:45 EDT Phlebotomy Only [facility] Hematology & Oncology - [address] [phone] Blood Doctor, [facility] Hem Onc 01/07/2024 13:30 EDT Office Visit [facility] Hematology & Oncology [address] [phone] Maria Alejandra Jung MD [address] [place] [address], Level 2 [place] [phone] 01/16/2024 14:30 EDT Appointment [facility] Breast Imaging Mammography - [address] [address] documented as of this encounter Visit Diagnoses Diagnosis Radicular pain of left lower extremity- Primary Thoracic or lumbosacral neuritis or radiculitis, unspecified documented in this encounter Administered Medications Inactive Administered Medications - up to 3 most recent administrations Medication Order MAR Action Action Date Dose Rate Site dexAMETHasone (DECADRON) injection 5 mg 5 mg, neural-axial, NOW X1, 1 dose, On Sun07/18/23 at 1545, Routine Given by Other 07/18/2023 15:51 EST 5 mg Iohexol (OMNIPAQUE 180) injection 10 mL 10 mL, neural-axial, NOW X1, 1 dose, On Sun07/18/23 at 1545, Routine Given by Other 07/18/2023 15:51 EST 2 mL documented in this encounter Care Teams Full Stack Developer Relationship Specialty Start Date End Date Alina Santacruz MD [address] [place] [phone] PCP - General 08/17/21 documented as of this encounter
--- OUTSIDE RECORDS SUMMARY | 2023-12-31 16:45 | XMS_ITS | Continuity of Care Document ---
Author Organization [place] - [facility] [place] [address] Assessment Encounter Date Assessment Date Assessment LastModified by Organization Details LastModified Time 10/15/2023 10/15/2023 Patient presents for pre-op evaluation. The patient is a suitable candidate for the planned procedure. Their chronic medical problems are optimized Further preoperative evaluation is not needed. I Not available 10/15/2023 12:25:09 Plan of Treatment Reminders Order Date Submit Date Provider Last Modified By Organization Details Last Modified Time Details Appointments Annual Wellness Exam 40 2023 01:00P M Alina Montenegro Not available Not available Not available Follow Up 20 2023 01:40P M Alina Montenegro Not available Not available Not available Lab CBC 2023 024 [facility] (Registration ), [address] [place] [address] [place], [address], 10/15/2023 18:38:49 Referral None recorded. Procedures None recorded. Surgeries None recorded. Imaging electroca rdiogram 2023 024 [email or web address] [facility] Cardiology Echo Scheduling, [address] [place] [address], [address], 10/18/2023 08:58:03 Medication Orders atenolol 100 mg tablet 2023 024 [employer] [address] [place], [address], 10/15/2023 12:03:45 Patient TargetsNo targets recorded. Patient InstructionsNo instructions recorded. 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 However in the [...] chains. Last chemistries in December 2022 (at [facility]) did not show elevated calcium. She does have a low folic acid and will resume taking orally. Referring Physician: Alina Montenegro [facility], Encounter Date: 06/29/2023 Physical Therapist Referral for Left side sciatica She has longstanding back pain and burning pain in the left leg. Has seen multiple specialists and is not a candidate at this time for surgery. She would benefit from [facility] as regular land based PT has exacerbated her pain in the past. Referring Physician: Alina Montenegro [facility], Encounter Date: 07/27/2023 Results Created Date Observation Date Name Description Value Unit Range Abnormal Flag LastModifiedBy Organization Detail LastModifiedTime 10/15/19 24 10/15/2023 elect tanner joshi am No observ ation record ed. rbonnell Not Available 10/17/2023 13:08:50 10/16/19 24 10/15/2023 elect tanner joshi am No observ ation record ed. rbonnell Not Available 10/17/2023 13:08:51 Result Notes None recorded. Problems Name Status Onset Date Resolution Date Notes Provider Name and Address Organization Details Recorded Time Mitral valve regurgitation Active 2012- mild-moderate MD Gina M[address]SA[address], [place], [address] , [place] [facility]. 07:45:55 Intolerance to lactose Active [address], [place], [address] , [facility] 4 07:47:41 Viral hepatitis C Active 2007 s/p Feroni 2014. 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 Undetected RNA 10/[address], [facility] [address] , [facility] 4 07:53:29 Essential hypertension Active 2009 candesartan caused hyperkalemia MD Gina MENSA[address] Dr, [place] [address] , [facility] 4 07:43:55 Low back pain Active [address], [place], [address] , [facility] 4 07:47:57 History of clinical finding in subject Completed 200606/23/2023 hx of positive PPD MD Gina M[address]SA[address], [place], [address] , [facility] 4 07:47:26 Pain in finger Completed 201412/28/2014 12/23/2014 - Comments only - Alina Montenegro MD - will x-ray Problem Code: M79.646; Problem Code Type: ICD-10; Not Available [facility] 3 04:26:44 Nicotine dependence Active [address], [place], [address] , [facility] 4 07:44:52 Eczema Completed 201404/30/2015 04/15/2015 - Comments only - Alina Montenegro MD - Continue with steroid cream to patch on buttocks. Problem Code: L30.9; Problem Code Type: ICD-10; Not Available [facility] 3 04:26:44 Skin sensation disturbance Completed 201510/28/2015 [...] Code Type: ICD-10; MD Gina MENSA[address] Dr, [facility] [address] , [facility] 4 07:50:27 Localized eruption of skin Completed 201512/23/2015 11/17/2015 - Comments only - Alina Montenegro MD - has not responded to steroid cream, referral to dermatology. Problem Code: R21; Problem Code Type: ICD-10; Not Available [facility] 3 04:26:45 Gastroesophag eal reflux disease without esophagitis Active [address], [facility] [address] , [facility] 4 07:44:04 Adult health examination Active [address], [place], [address] , [facility] 4 07:37:12 Dream anxiety disorder Active 2015 prazosin trial not helpful MD Gina M[address], [place], [address] , [facility] 4 07:43:29 Nausea Active [address], [place], [address] , [facility] 4 07:44:58 Lung function testing abnormal Active 2016 decreased lung diffusion capacity- non communcating bullae on CT scan MD Gina MENSA[address] Dr, [place], [address] , [facility] 4 07:48:39 Vitamin D deficiency Active 2016 14.5 in 10/[address], [facility] [address] , [facility] 4 07:55:25 Right upper quadrant pain Active 201702/02/2020 has had extensive workup. May be due to back pain MD Gina MENSAH Dr, [facility] [address] , [facility] 4 07:49:22 Generalized anxiety disorder Active [address], [address] 4 07:44:23 Posttraumatic stress disorder Active [address], [facility] [address] , [facility] 4 07:44:36 Screening mammography Completed 201806/23/2023 Problem Code: Z12.31; Problem Code Type: ICD-10; MD Gina MENSAH Dr, [facility] [address] , [facility] 4 07:49:27 Left side sciatica Active [address], [facility] [address] , [facility] 4 07:47:51 Pain in left foot Active [address], [facility] [address] , [facility]. 4 07:44:44 Migraine Active [address], [facility] [address] , [facility]. 4 07:48:54 Hyperkalemia Completed 03/08202206/23/2023 12/29/2022 - Comments only - Alina Montenegro MD - She has stopped the ARB about 10 days ago. She will need a repeat BMP in a few weeks. Problem Code: E87.5; Problem Code Type: ICD-10; MD Gina M[address]SA[address], [place], [address] , [facility] 4 07:47:34 Hemorrhage of rectum and anus Active 2022 did not tolerate prep for colonoscopy MD Gina [address], [place], [address] , [facility] 4 07:46:20 Blood in urine Completed 202006/23/2020 Problem Code: R31.9; Problem Code Type: ICD-10; Not Available [facility] 3 04:26:48 Breast composition Completed 202007/15/[address], [place], [address] , [facility] 4 07:40:02 Disorder of bone and articular cartilage Completed 201002/28/2023 Problem Code: 733.90; Problem Code Type: ICD-9; Not Available [facility] 3 04:26:48 Epigastric pain Completed 202010/01/2020 Problem Code: R10.13; Problem Code Type: ICD-10; Not Available [facility] 3 04:26:48 Therapeutic drug monitoring assay Completed 201711/21/2017 Problem Code: Z51.81; Problem Code Type: ICD-10; Not Available [facility] 3 04:26:48 Mitral valve disorder Completed 201202/28/2023 Problem Code: 424.0; Problem Code Type: ICD-9; Not Available [facility] 3 04:26:48 Sciatica Completed Problem Code: 724.3; Problem Code Type: ICD-9; Not Available [facility] 3 04:26:49 Chronic pain Completed 200602/28/2023 03/18/2015 [...] 338.29; Problem Code Type: ICD-9; Not Available [facility] 3 04:26:49 Chronic hepatitis C Completed 200702/28/2023 [...] whether it is a special scan requiring [facility] equipment. Problem Code: 070.54; Problem Code Type: ICD-9; Not Available [facility] 3 04:26:49 Chest pain Completed 202110/07/2021 Problem Code: R07.89; Problem Code Type: ICD-10; Not Available [facility] 3 04:26:50 Lactose intolerance Completed 200702/28/2023 Not Available [facility] 3 04:26:50 Abnormal weight gain Completed 201507/03/2016 Problem Code: R63.5; Problem Code Type: ICD-10; Not Available [facility] 3 04:26:50 Dizziness and giddiness Completed 201409/09/2018 Problem Code: R42; Problem Code Type: ICD-10; Not Available [facility] 3 04:26:50 Abdominal pain Completed 202006/23/2020 Problem Code: R10.9; Problem Code Type: ICD-10; Not Available [facility] 3 04:26:50 Headache Completed 201505/08/2016 Problem Code: R51; Problem Code Type: ICD-10; Not Available [facility] 3 04:26:51 History of injury Completed 202010/01/2020 Problem Code: Z87.828; Problem Code Type: ICD-10; Not Available [facility] 3 04:26:51 Anxiety disorder Completed 200602/28/2023 Not Available [facility] 3 04:26:51 Depressive disorder Completed 200603/18/2015 Not Available [facility] 3 04:26:51 Mantoux: positive Completed 200602/28/2023 Not Available [facility] 3 04:26:52 Nausea Completed 202010/01/2020 Problem Code: R11.0; Problem Code Type: ICD-10; MD Gina M[address]SA[address] Dr, [place], [address] , [facility] 4 07:44:58 Hypertensive disorder Completed 200902/28/2023 Not Available [facility] 3 04:26:52 Lumbago with sciatica Completed 200602/28/2023 01/12/2016 - Comments only - Alina Montenegro MD - Functionally improved recently, continue to use walker PRN, chronic narcotics are renewed for 4 weeks. Problem Code: M54.40; Problem Code Type: ICD-10; Not Available [facility] 3 04:26:52 Skin sensation disturbance Completed 201509/09/2018 Problem Code: R20.9; Problem Code Type: ICD-10; [facility] [address] , [facility] 4 07:50:27 Pain in lower limb Completed 201403/18/2015 Problem Code: M79.606; Problem Code Type: ICD-10; Not Available [facility] 3 04:26:53 Localized edema Completed 201509/09/2018 Problem Code: R60.0; Problem Code Type: ICD-10; Not Available [facility] 3 04:26:54 Fatigue Completed 202006/23/2020 Problem Code: R53.83; Problem Code Type: ICD-10; Not Available [facility] 3 04:26:54 Senile osteopenia Active 2017 remains in osteopenia range MD Gina MENSAH Dr, [address] 4 07:39:48 Paresthesia of lower extremity Active 2018 EMG 06/2023 at [facility]: negative radiculpathy, positive peripheral neuropathy MD Gina MENSAH Dr, [place] [address] , [facility] 4 07:58:38 Subclinical hypothyroidis m Completed 201606/23/2023 negative thyroid antibodies 2017 Removal Reason: Tsh normal MD Gina MENSA[address] Dr, [place] [address] , [facility] 4 07:51:57 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 Please review this document and add these problems to the patient's chart manually as needed. Problem Notes None recorded. Medical Equipment None Reported. Allergies Allergen ID Allergen Name Allergen Category Reaction Reaction Severity Criticality Documentation Date Start Date Code Code System Note Provider Name and Address Organization Details Recorded Time 40756 adhesive tape environme nt,medica tion rash mild Not available 04/13/20232007 skin redne ss Aller gyRea ction : 'skin redne ss'; Not Available [facility] 3 16:26:23 Medications Name Sig Start [...] ine 25 mg rectal supposito ry 1 NE q 12 hours prn N/V 07/16 completed [...] 8 hours as needed 11/11 completed [facility] [...] ion with 30 mg BID. Fill at [facility] only. 03/08 completed Not Available Not Available [...] tablets twice a day. Fill only at [facility] on [address] Maximum daily dose of 4 mg. May fill [id number] 2023 active Not Available Not Available Not Avai lable Nasonex 50 mcg/actua tion [place] 2 sprays daily 2012 active Not Available [...] by mouth twice a day. Fill at [facility] only. Max daily dose 30 mg 10/01 [...] mouth once a day 2023 active Per [facility] discharg e Not [...] Details Last Updated DateTime 4 162.56 cm 23.5 kg/m2 41651.1 5 g 97.7 [degF] 16 /min 97 % 97 % 80 /min 118 mm[Hg] 80 mm[Hg] ROX KANG LPN [place] [facility]. 4 11:01:06 Social History Question Answer Notes LastModified by Organizat ion Details LastModified Time Tobacco Smoking Status Current Every Day Smoker ROX KANG LPN [facility], [place] [facility]. 06/25/2023 13:25:54 1) Date Of Last VPMS [...] preservative free, adsorbed 10/19/2017 completed Not Available [facility] 06/09/2023 14:22:23 Tdap 04/07/2008 completed Not Available [facility] 14:22:22 zoster live 02/28/2017 completed Not Available [facility] 06/09/2023 14:22:23 Novel [id number], all formulations 07/05/2009 completed Not Available [facility] 06/09/2023 14:22:23 Influenza, split virus, trivalent, preservative 02/16/2016 completed Not Available [facility] 06/09/2023 14:22:23 Influenza, split virus, trivalent, preservative 02/18/2015 completed Not Available [facility] 06/09/2023 14:22:23 Influenza, split virus, quadrivalent, PF 02/24/2019 completed Not Available [facility] 06/09/2023 14:22:23 Influenza, split virus, quadrivalent, PF 03/08/2020 completed Not Available [facility] 06/09/2023 14:22:23 Influenza, split virus, quadrivalent, PF 04/11/2021 completed Not Available [facility] 06/09/2023 14:22:23 zoster recombinant 08/12/2021 completed Not Available [facility] 06/09/2023 14:22:22 zoster recombinant 11/04/2021 completed Not Available [facility] 06/09/2023 14:22:22 Influenza, high-dose, quadrivalent, PF 03/23/2022 completed Not Available [facility] 06/09/2023 14:22:22 COVID-19, mRNA, LNP-S, PF, 100 mcg/0.5mL dose or 50 mcg/0.25mL dose 09/02/2020 completed Not Available [facility] 06/09/2023 14:22:22 COVID-19, mRNA, LNP-S, PF, 100 mcg/0.5mL dose or 50 mcg/0.25mL dose 09/30/2020 completed Not Available [facility] 06/09/2023 14:22:22 COVID-19, mRNA, LNP-S, PF, 100 mcg/0.5mL dose or 50 mcg/0.25mL dose 10/07/2021 completed Not Available [facility] 06/09/2023 14:22:22 COVID-19, mRNA, LNP-S, PF, 100 mcg/0.5mL dose or 50 mcg/0.25mL dose 04/11/2021 completed Not Available [facility] 06/09/2023 14:22:22 Pneumococcal conjugate PCV20, polysaccharide [id number] conjugate, adjuvant, PF 03/23/2022 completed Not Available [facility] 06/09/2023 14:22:22 COVID-19, mRNA, LNP-S, bivalent, PF, 50 mcg/0.5 mL or 25mcg/0.25 mL dose 04/01/2022 completed Not Available [facility] 06/09/19 14:22:22 pneumococcal polysaccharide PPV23 08/04/2009 completed Not Available [facility] 2023 14:22:22 Hep B, unspecified formulation 12/09/2008 completed Not Available [facility] 06/09/2023 14:22:23 Hep B, unspecified formulation 04/22/2008 completed Not Available [facility] 06/09/2023 14:22:23 Hep B, unspecified formulation 06/03/2008 completed Not Available [facility] 06/09/2023 14:22:23 Hep A, unspecified formulation 12/29/2008 completed Not Available [facility] 06/09/2023 14:22:23 Hep A, unspecified formulation 04/22/2008 completed Not Available [facility] 06/09/2023 14:22:23 Hep A, unspecified formulation 06/03/2008 completed Not Available [facility] 06/09/2023 14:22:23 influenza, unspecified formulation 06/28/2006 completed Not Available [facility] 06/09/2023 14:22:22 influenza, unspecified formulation 01/30/2011 completed Not Available [facility] 06/09/2023 14:22:22 influenza, unspecified formulation 02/14/2012 completed Not Available [facility] 06/09/2023 14:22:22 influenza, unspecified formulation 02/25/2008 completed Not Available [facility] 06/09/2023 14:22:22 influenza, unspecified formulation 02/24/2009 completed Not Available [facility] 06/09/2023 14:22:22 influenza, unspecified formulation 02/24/2013 completed Not Available [facility] 06/09/2023 14:22:22 influenza, unspecified formulation 03/13/2014 completed Not Available [facility] 06/09/2023 14:22:22 influenza, unspecified formulation 03/20/2007 completed Not Available [facility] 06/09/2023 14:22:22 influenza, unspecified formulation 03/21/2010 completed Not Available [facility] 06/09/2023 14:22:22 COVID-19, mRNA, LNP-S, PF, 50 mcg/0.5 mL 04/11/2023 completed ROX KANG LPN null, [facility] 06/25/2023 15:21:19 influenza, unspecified formulation 04/11/2023 completed ROX KANG LPN null, [place] [facility] 06/25/2023 15:24:12 Past Encounters Encounter ID Performer Location Encounter Start Date Encounter Closed Date Diagnosis/Indication Diagnosis SNOMED-CT Code [id number] ALINA MONTENEGRO MD [address] [place] [address] 10/01/2023 12:54:48 10/01/2023 14:26:15 Chronic low back pain 431528904 Generalize d anxiety disorder 65138095 Essential hypertension 43963912 [id number] ALINA MONTENEGRO MD [address] [place] [address] 10/15/2023 09:39:51 10/15/2023 12:05:10 Pre-surgery evaluation 389842306 Benign ess ential hypertension 4350041 Health Concerns Section Related Observation LastModified by Organization Detai ls LastModified Time None Recorded Concern Status LastModified by Organization Details LastModified Time None Recorded Payers Encounter Date Sequence Insurance Name Policy Number Policy Saravia Covered Member ID Saravia Member ID Guarantor Name 10/15/2023 1 [facility] (MEDICARE REPLACEMENT/A DVANTAGE - PPO) [id number] Danielle Soto [id number] Danielle Soto Notes Date Note Type Note Provider Name and Address Organization Details Recorded Time 10/15/2023 text/html HPI Notes: Surge ry to [...] SOB. ALINA MONTENEGRO MD [address], [place], [address], [place] [facility]. 10/15/2023 12:28:30 OBGyn Episode No OBEpisode recorded.
--- OUTSIDE RECORDS SUMMARY | 2023-12-31 16:45 | XMS_ITS | Encounter Summary ---
Author Organization [facility] Address [address] [place] [address] Care Team Providers Care Broker Associate Name Role Phone Alina Santacruz MD Primary Care Provider [phone] Reason for Visit * Reason Onset Date Comments Social Work 07/17/2023 Distress Assessm ent Encounter Details Date Type Department Care Team ([facility] Contact Info) Description 07/17/2023 Telephone [facility] Hematology & [place] [address] Matilda Witt Social Work (Distress Assessment) Social History Tobacco Use Types Packs/Day Years [...] * Telephone Encounter - Matilda Witt - 07/17/2023 1015 EST Pt met with Dr. Jung on 07/12/23 for abnormal free light chain ration that was checked in the setting of neuropathy. She was given a Distress Assessment by one of our medical assistance and pt scored: 10 and indicated that she would like to speak with a SW. Chart review- Reviewed Dr. Jung's note from 07/12 and he indicated- Danielle was reassured that this is not a bone marrow cancer and our follow-up would basically consist of repeating this blood work inabout 6 months. If it stable then no need for further hematologic follow-up. Thankfully, pt doesn't have a blood cancer. I tried calling her today to explain that she wouldn't qualify for my services however, if she's interested in connecting with SW I can offer to make a referral to her PCP or [facility]. No answer. I will try pt later today documented in this encounter Plan of Treatment Upcoming Encounters Date Type Department Care Team (Late st Contact Info) Description 01/07/2024 12:45 EDT Phlebotomy Only [facility] Hematology & Oncology [address] [id number] Blood Doctor, [facility] Hem Onc 01/07/2024 13:30 EDT Office Visit [facility] Hematology & Oncology [address] [id number] Maria Alejandra Jung MD [address] [place] [address], Level [address] [place] [phone] 01/16/2024 14:30 EDT Appointment [facility] Breast Imaging Mammography - [address] [id number] documented as of this encounter Visit Diagnoses Not on filedocumented in this encounter Care Teams Broker Associate Relationship Specialty Start Date End Date Alina Santacruz MD [address] [place] [phone] PCP - General 08/17/21 documented as of this encounter
--- OUTSIDE RECORDS SUMMARY | 2023-12-31 16:46 | XMS_ITS | Encounter Summary ---
Author Organization [facility] Address [address] [place] [id number] Care Team Providers Care Telephonic Rn Name Role Phone Alina Santacruz MD Primary Care Provider [phone] Reason for Referral * Radiology Services (Routine/Next Available) - Authorization Not Required Specialty Diagnoses / Procedures Referred By Contac t Referred To Contact Diagnoses Personal history of nicotine dependence Procedures CT CHEST LOW DOSE LUNG SCREENING Alina Santacruz MD [address] [place] [phone] [facility] Referral ID Status Reason Start Date Expiration Date Visits Requested Visits Authorized [id number] Authorization Not Required 08/09/2022 1 1 Reason for Visit * Radiology Services (Routine/Next Available) - Authorization Not Required Specialty Diagnoses / Procedures Referred By Contac t Referred To Contact Diagnoses Personal history of nicotine dependence Procedures CT CHEST LOW DOSE LUNG SCREENING Alina Santacruz MD [address] [place] [phone] [facility] Referral ID Status Reason Start Date Expiration Date Visits Requested Visits Authorized [id number] Authorization Not Required 08/09/2022 1 1 Encounter Details Date Type Department Care Team (Latest Contact Info) Description 12/15/2022 11:34 EDT - 12/15/2022 23:59 EDT Hospital [facility] Radiology CT Outpatient - [facility] [address] [place] [address] Personal history of nicotine dependence Discharge Disposition: Home or Self Care Social [...] 11:20 EDT Sexual Orientation Not on file COVID-19 Exposure Response Date Recorded In the last 10 days, have yo u been in contact with someone who was confirmed or suspected to have Coronavirus/COVID-19? No / Unsure 11/15/2022 9:33 EDT documented as of this encounter Functional Status Functional Status Response Date of Assess ment Are you deaf or do you have serious difficulty h earing? No 11/15/2022 documented as of this encounter Medications at [...] Info) Description 01/07/2024 12:45 EDT Phlebotomy Only [facility] Hematology & Oncology [address] [phone] Blood Doctor, [facility] Hem Onc 01/07/2024 13:30 EDT Office Visit [facility] Hematology & Oncology [address] [phone] Maria Alejandra Jung MD [address] [place] [address], Level [address] [place] [phone] 01/16/2024 14:30 EDT Appointment [facility] Breast Imaging Mammography [address] [phone] documented as of this encounter Procedures Procedure Name Priority Date/Time Associated Diagnosis Comments CT CHEST LOW DOSE LUNG SCREENING Routine 12/15/2022 11:53 EDT Personal history of nicotine dependence documented in this encounter Results * CT CHEST LOW DOSE LUNG SCREENING [...] Screening Reporting and Data System (ACR LungRADS [id number]) as below: Category 0: Incomplete (part or [...] above interpretation and agree with the findings. [id number] Narrative 12/15/2022 15:[address] CHEST LOW [...] Lung Screening Reporting and Data System (ACRLungRADS [id number]) as below: Category 0: Incomplete (part or [...] the above interpretation andagree with the findings. [id number] Alina Santacruz MD IMG CT ORDERABLES documented in this encounter Visit Diagnoses Diagnosis Personal history of nicotine dependence Personal history of tobacco use, presenting hazards to health documented in this encounter Care Teams Telephonic Rn Relationship Specialty Start Date End Date Alina Santacruz MD [address] [place] [phone] PCP - General 08/17/21 documented as of this encounter
--- OUTSIDE RECORDS SUMMARY | 2023-12-31 16:46 | XMS_ITS | Encounter Summary ---
Author Organization [facility] Address [address] [place] [address] Care Team Providers Care Coding Analyst Name Role Phone Alina Santacruz MD Primary Care Provider [phone] Reason for Referral * Consult (Routine/Next Available) - Authorization Not Required Specialty Diagnoses / Procedures Referred By Radha casey Referred To Contact Orthopedic Surgery Diagnoses Left leg pain Brannon Nelson MD [address] [place] [address], Level [address] [place] [phone] [facility] Ortho Spine [address] [facility] [place] [address] Referral ID Status Reason Start Date Expiration Date Visits Requested Visits Authorized [id number] Authorization Not Required Specialty Services Required 06/11/2023 1 1 Question Answer Reason for Request: back pain and leg numbness Reason for Visit * Reason Comments Medical Evaluation Pt reports ongoing n europathy of L side - up L leg/L axilla and L inner thigh. States she fell a couple months ago and it's progressed. Pt's skin color overall pale with dusky finger tips. Pt reports she's primarily bed bound - c/o dizziness when standing. Hypotensive in triage x 2. Encounter Details Date Type Department Care Team (Late st Contact Info) Description 06/11/2023 14:20 EST - 06/11/2023 19:58 EST Emergency [facility] Emergency Department - [address] [address] Elan Chau MD 111 [facility] 1 [place] [address] Brannon Nelson MD [address] [phone] Left leg pain (Primary Dx) Discharge Disposition: Home or Self [...] Sign Reading Time Taken Comments Blood Pressure 126/70 06/11/2023 1920 EST Pulse - - Temperature 36.4 ??C (97.5 ??F) 06/11/2023 1411 EST Respiratory Rate 10 06/11/2023 1920 EST Oxygen Saturation 97% 06/11/2023 1920 EST Inhaled Oxygen Concentration - - Weight 59 kg (130 lb) 06/11/2023 1411 EST Height 162.6 cm (5' 4) 06/11/2023 1411 EST Body Mass Index 22.31 06/11/2023 1411 EST documented in this encounter Functional Status Functional Status Response Date of Assess ment Are you deaf or do you have serious difficulty h earing? No 11/15/2022 documented as of this encounter Discharge Instructions * Discharge Instructions* Brannon Nelson MD - 06/11/2023 18:51 EST It was a pleasure seeing you today in the emergency department. Your evaluated today for leg pain. On our evaluation we not see any evidence of acute compression of your spinal cord. We recommend prednisone 40 mg for 5 days. We have placed referral to spine in the outpatient setting Return to the Emergency Department (ED) if your condition worsens, does not improve as expected, orother new concerns arise. Specifically return if you have new or uncontrolled pain, high fever, difficulty breathing, vomiting and unable to keep down fluids or medications, or any other concerns. documented in this encounter Medications at Time [...] tablet Take 1 Tablet by mouth daily. fosinopriL-hydrochlor othiazide (MONOPRIL-HCT) 10-12.5 mg per tablet Take 1 [...] 2.5-2.5 mcg/actuation inhaler Inhale as directed daily. predniSONE (DELTASONE) 20 mg tablet Take 2 Tablets by mouth daily for 5 days. 10 Tablet 06/11/2023 06/16/2023 documented as of this encounter Ordered Prescriptions Prescription Sig Dispensed Refills Start Date End Da te predniSONE (DELTASONE) 20 mg tablet Take 2 Tablets by mouth daily for 5 days. 10 Tablet 06/11/2023 06/16/2023 documented in this encounter Discharge Disposition Disposition Code Departure Means Destination Comment s Home or Self Senior Living documented in this encounter ED Notes * Rangel Levy RN - 06/11/2023 1923 EST 1850. Patient ambulatory to restroom with steady gait. 0: Discharge vital signs stable. PIV removed. AVS reviewed with patient. Ambulatory out of department in no acute distress. * Elan Chau MD - 06/11/2023 1400 EST Emergency Department Visit This note was created and authored by Sunny Kaur MD working under the supervision of Elan Chau MD. This documentation is recorded by Elodia Jimenes acting as Scribe under the direction and presence of Sunny Kaur MD and Elan Chau MD. Sunny Kaur MD and Elan Chau MD: We personally performed the services recorded by the scribe in our presence. We confirm the scribe's documentation has been reviewed by us to accurately and completely record our work, treatment, procedures, and medical decision making. I, Elan Chau MD, performed a history and exam of this patient and discussed the case with the resident. I have reviewed and edited this note, and the documentation is consistent with my findings, assessment and plan. I fully participated in the medical decision making. Medical Decision Making 68 y.o. 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 Patient and her partner report being seen by Loan Associate who recommended she go to the ED for acute on chronic left leg pain. Patient noted to be quite hypotensive in triage and brought immediately back to side. Patient initially quite hypotensive in triage, improved after IV fluids were started. Likely she is hypovolemic due to her response of IV fluids, also has chronic pain and neuropathy onmorphine, lorazepam, pregabalin that may be influencing her hypotension. Patient signed out to oncoming team pending IV fluids and reevaluation. An EKG was obtained and independently interpreted.Laboratory data was reviewed. Sinus rhythm, 66 bpm, 1st degree AV block, narrow complex, no overt ischemia. Medical Decision Making Problems Addressed: Left leg pain: complicated acute illness or injury Amount and/or Complexity of Data Reviewed Labs: ordered. Risk Prescription drug management. Final diagnoses: Left leg pain Disposition: signed out Chief complaint: Leg pain HPI Danielle Gilman is a 68 y.o. 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 Patient reports painful burning sensation in left lower extremity from prior accidents. Sensation radiates into torso and has progressed into left arm. She reports a fall approximately three months ago exacerbated pain. She presents to the ED today on her bilingual case manager's recommendation. Patent hasn't seen her PCP lately due to distance; she takes medications to manage pain but notes they don't work well. She notes her PO intake is limited as she is primarily bedridden. History was provided by: Patient Records reviewed include: Neurology note from Dr. Lubin on 05/23/23 Patient's pertinent PMH, FH, SH were reviewed and edited as necessary. Nursing notes reviewed. A medical screening exam was performed. Physical Exam BP 126/70 Temp 36.4 ??C (97.5 ??F) (Oral) Resp 10 Ht 162.6 cm (64) Wt 59 kg (130 lb) SpO2 97% BMI 22.31 kg/m?? Physical Exam Constitutional: Appears to be in pain but no acute distress Head: Atraumatic, normocephalic Eyes: Pupils equal and reactive to light, no scleral icterus Mouth: Moist oral mucosa without apparent lesions Neck: Full ROM Cardiovascular: Regular rate and rhythm. Extremities warm and well perfused, no peripheral edema. Respiratory: Normal respiratory effort. No wheezes or crackles. Clear to auscultation bilaterally. Abdomen: Soft, non-distended, non-tender to palpation Skin: No overt rashes on exposed skin Musculoskeletal: Moving extremities spontaneously; no gross deformities Neuro: Grossly neurologically intact with normal speech Psych: No agitation or overt thought disorder Procedures Procedures * Brannon Nelson MD - 06/11/2023 1400 EST EMERGENCY DEPARTMENT VISIT SIGN-OUT NOTE Received patient in signout. In summary, this is a 68-year-old female with history off hepatitis C,cirrhosis morphology, chronic pain and fibromyalgia who presented to the ED for evaluation of low blood pressure. She had an initial blood pressure of 72/57, which quickly improved to 104/67. Care and workup prior to assuming care includes fluid resuscitation with 1L lactated ringers IV. I assumed care of patient from Dr. Kaur and Dr. Chau pending further workup. After I assumed care Patient reassessed discussed that she does not currently have any red flag symptoms. Workup here was largely unremarkable. Given return precautions and discharged in the emergency department. Final diagnoses: Left leg pain This note was created and authored by Brandy Brooks DO working under the supervision of Brannon Nelson MD. This documentation is recorded by Ashli Garcia acting as Scribe under the direction and presence of Brandy Brooks DO and Brannon Nelson MD. Brandy Brooks DO and Brannon Nelson MD: We personally performed the services recorded by the scribe in our presence. We confirm the scribe's documentation has been reviewed by us to accurately and completely record our work, treatment, procedures, and medical decision making. documented in this encounter Plan of Treatment Upcoming Encounters Date Type Department Care Team (Late st Contact Info) Description 01/07/2024 12:45 EDT Phlebotomy Only [facility] Hematology & Oncology - [address] [address] Blood Doctor, [facility] Hem Onc 01/07/2024 13:30 EDT Office Visit [facility] Hematology & Oncology - [facility] [address] [place], [place] [address] Maria Alejandra Jung MD [address] [facility], Level 2 [place] [phone] 01/16/2024 14:30 EDT Appointment [facility] Breast Imaging Mammography - [address] [phone] Scheduled Referrals Name Type Priority Associated Diagnoses Order Schedule AMB CONS/FOLLOW UP ORTHOPEDICS - [facility] Outpatient Referral Routine/Next Available Left leg pain Expected: 06/18/2023 (Approximate), Expires: 06/11/2024 documented as of this encounter Procedures Procedure Name Priority Date/Time Associated Diagnosis Comments ECG REPORT - SCANNED 06/12/2023 7:52 EST HOLD SST Routine 06/11/2023 14:34 EST HOLD LAVENDER TOP Routine 06/11/2023 14: 34 EST HOLD GREEN TOP Routine 06/11/2023 14:34 EST HOLD BLUE TOP Routine 06/11/2023 14:34 EST EXTRA BLOOD DRAW (RAINBOW) Routine 06/11/2023 14:34 EST COMPLETE BLOOD COUNT AND DIFFERENTIAL STAT Add-on 06/11/2023 14:34 EST BASIC METABOLIC PANEL (BMP) STAT Add-on 06/11/2023 14:34 EST EKG 12-LEAD STAT 06/11/2023 14:20 EST documented in this encounter Results * ECG REPORT - SCANNED (06/12/2023 7:52 EST) 06/12/2023 7:52 EST Scan 2 Environmental [employer]ler PROCEDURE/MINOR OMID GICAL ORDERABLES * (ABNORMAL) BASIC METABOLIC PANEL (BMP) (06/11/2023 14:34 EST) Sodium 137 136 - 145 mmol/L 06/11/2023 17:01 [facility] Potassium 4.5 3.5 - 5.0 mmol/L 06/11/2023 17:01 [facility] Chloride 102 96 - 110 mmol/L 06/11/2023 17:01 [facility] CO2 Total 30 22 - 32 mmol/L 06/11/2023 17:01 [facility] Anion Gap 5 5 - 14 mmol/L 06/11/2023 17:01 [facility] Glucose 101(H) 70 - 99 mg/dl 06/11/2023 17:01 [facility] Calcium 9.6 8.5 - 10.5 mg/dL 06/11/2023 17:01 [facility] BUN 12 10 - 26 mg/dL 06/11/2023 17:01 [facility] Creatinine 0.79 0.52 - 1.04 mg/dL 06/11/2023 17:01 [facility] eGFR 82 >60 mL/min/1.73 m2 06/11/2023 17:01 [facility] Blood VENOUS BLOOD / Unknown Venipuncture / Unknown 06/11/2023 14:34 EST 06/11/2023 14:40 EST Brannon Nelson MD CHEMISTRY & BLOOD GA S ORDERABLES [facility] [address] [place] [address] * COMPLETE BLOOD COUNT AND DIFFERENTIAL (06/11/2023 14:34 EST) WBC 7.08 4.00 - 12.40 K/cmm 06/11/2023 16:51 [facility] RBC 4.29 3.86 - 5.04 M/cmm 06/11/2023 16:51 [facility] Hemoglobin 13.7 11.6 - 15.2 g/dL 06/11/2023 16:51 [facility] HCT 38.7 34.9 - 44.4 % 06/11/2023 16:51 [facility] MCV 90 81 - 98 fL 06/11/2023 16:51 [facility] MCH 31.9 26.7 - 33.3 pg 06/11/2023 16:51 [facility] MCHC 35.4 32.1 - 35.9 g/dL 06/11/2023 16:51 [facility] RDW-CV 13.4 <14.7 % 06/11/2023 16:51 [facility] RDW-SD 44.7 <50.4 fl 06/11/2023 16:51 [facility] PLT 246 141 - 377 K/cmm 06/11/2023 16:51 [facility] MPV 11.5 9.5 - 12.7 fL 06/11/2023 16:51 [facility] % Neutrophils 54.1 % 06/11/2023 16:51 [facility] % Lymphocytes 35.2 % 06/11/2023 16:51 [facility] % Monocytes 8.6 % 06/11/2023 16:51 [facility] % Eosinophils 1.4 % 06/11/2023 16:51 [facility] % Basophils 0.4 % 06/11/2023 16:51 [facility] % Immature Grans 0.3 % 06/11/19 16:51 [facility] Absolute Neutrophils 3.83 2.20 - 8.85 K/cmm 06/11/2023 16:51 [facility] Absolute Lymphocytes 2.49 1.09 - 3.30 K/cmm 06/11/2023 16:51 [facility] Absolute Monocytes 0.61 0.10 - 0.80 K/cmm 06/11/2023 16:51 [facility] Absolute Eosinophils 0.10 0.03 - 0.61 K/cmm 06/11/2023 16:51 EST [facility] ABS Basophils 0.03 0.01 - 0.11 K/cm 06/11/2023 16:51 EST [facility] Absolute Immature Grans 0.02 0.00 - 0.06 /cm 06/11/2023 16:51 EST [facility] Type of Differential: Auto 06/11/2023 16:51 EST [facility] Blood VENOUS BLOOD / Unknown Venipuncture / Unknown 06/11/2023 14:34 EST 06/11/2023 14:40 EST Brannon Nelson MD PACKAGES & DNA PROBE ORDERABLES Performing Organization Address [facility]/ZIP Co de Phone Number [facility] [address] [place] [address] * HOLD BLUE TOP (06/11/2023 14:34 EST) Hold Hold 06/11/2023 16:01 EST [facility] Blood VENOUS BLOOD / Unknown Venipuncture / Unknown 06/11/2023 14:34 EST 06/11/2023 14:57 EST Elan Chau MD LAB INFO SERVICE AN D SUPPORT & PHONE RESULT Performing Organization Address [facility]/ZIP Co de Phone Number [facility] [address] [place] [address] * HOLD SST (06/11/2023 14:34 EST) Hold Hold 06/11/2023 15:46 EST [facility] Blood VENOUS BLOOD / Unknown Venipuncture / Unknown 06/11/2023 14:34 EST 06/11/2023 14:40 EST Elan Chau MD LAB INFO SERVICE AN D SUPPORT & PHONE RESULT Performing Organization Address City/[facility] Co de Phone Number [facility] [address] [place] [address] * HOLD LAVENDER TOP (06/11/2023 14:34 EST) Hold Hold 06/11/2023 15:46 EST [facility] Blood VENOUS BLOOD / Unknown Venipuncture / Unknown 06/11/2023 14:34 EST 06/11/2023 14:40 EST Elan Chau MD LAB INFO SERVICE AN D SUPPORT & PHONE RESULT Performing Organization Address [facility] de Phone Number [facility] [address] [place] [address] * HOLD GREEN TOP (06/11/2023 14:34 EST) Hold Hold 06/11/2023 15:46 EST [facility] Blood VENOUS BLOOD / Unknown Venipuncture / Unknown 06/11/2023 14:34 EST 06/11/2023 14:40 EST Elan Chau MD LAB INFO SERVICE AN D SUPPORT & PHONE RESULT Performing Organization Address [facility] de Phone Number [facility] [address] [place] [address] * EKG 12-LEAD (06/11/2023 14:20 EST) 06/11/2023 14:2 0 EST Narrative [facility] EKG - 06/12/2023 7:45 EST ?[facility] Emergency ? Test Date: ?2023-06-11 Pat Name: ? DANEILLE GILMAN ? Department: ?? ED ? Room: ? Gender: ? Female ? Communications Intern: ?? [id number] : ?1955 ? Requested By: JORGE Wilkinson Order Number: [id number] ? Reading MD: ?? TRACE LAKE MD ? Measurements Intervals ?[place] ? Rate: ? 66 ? P: ?21 OK: ? 234 ?QRS: ?20 QRSD: ? 89 ? T: ?52 QT: ? 388 ? QTc: ?409 ? Interpretive Statements SINUS RHYTHM WITH FIRST DEGREE AV BLOCK Nonspecific ST/Twave abnormality Compared to ECG 12/18/2021 14:05:42 No significant changes I reviewed the tracing and have either agreed or edited the findings in this report. Electronically Signed On 06-12-2023 07:45:55 EST by JOANNA ALKE MD. Procedure Note Joanna Lake MD - 06/12/2023 [facility] Emergency Test Date: 2023-06-11 Pat Name: DANIELLE GILMAN Department: ED Room: Gender: Female Communications Intern: [id number] : 1955 Requested By: JORGE Wilkinson Order Number: [id number] Reading MD: JOANNA LAKE MD Measurements Intervals [place] Rate: 66 P: 21 OK: 234 QRS: 20 QRSD: 89 T: 52 QT: 388 QTc: 409 Interpretive Statements SINUS RHYTHM WITH FIRST DEGREE AV BLOCK Nonspecific ST/Twave abnormality Compared to ECG 12/18/2021 14:05:42 No significant changes I reviewed the tracing and have either agreed or edited the findings inthis report. Electronically Signed On 06-12-2023 07:45:55 EST by JOANNA ARIZA. Elan Chau MD CARDIAC ECG ORDERAB LES [facility] EKG documented in this encounter Visit Diagnoses Diagnosis Left leg pain- Primary Pain in limb documented in this encounter Administered Medications Inactive Administered Medications - up to 3 most recent administrations Medication Order MAR Action Action Date Dose Rate Site lactated ringers BOLUS 1,000 mL 1,000 mL, intravenous, NOW X1, 1 dose, On Sun06/11/23 at 1500, STAT New Bag 06/11/2023 14:47 EST 1,000 mL LORazepam (ATIVAN) tablet 1 mg 1 mg, oral, NOW X1, 1 dose, On Sun06/11/23 at 1700, STAT Given 06/11/2023 17:06 EST 1 mg pregabalin (LYRICA) capsule 150 mg 150 mg, oral, NOW X1, 1 dose, On Sun06/11/23 at 1700, STAT Given 06/11/2023 17:06 EST 150 mg documented in this encounter Active and Recently Administered Medications Times are shown in EST. Scheduled Medication Order 06/09/2023 06/10/2023 06/11/2023 lactated ringers BOLUS 1,000 mL (COMPLETED) 1,000 mL, intravenous, NOW X1, 1 dose, On Sun06/11/23 at 1500, STAT 1447 (New Bag - Prov ider: Annita Cam RN)1555 (IV Stopped - Provider: Annita Cam RN) LORazepam (ATIVAN) tablet 1 mg (COMPLETED) 1 mg, oral, NOW X1, 1 dose, On Sun06/11/23 at 1700, STAT 1706 (Given - Provid er: Annita Cam RN) pregabalin (LYRICA) capsule 150 mg (COMPLETED) 150 mg, oral, NOW X1, 1 dose, On Sun06/11/23 at 1700, STAT 1706 (Given - Provid er: Annita Cam RN) documented in this encounter Care Teams Coding Analyst Relationship Specialty Start Date End Date Alina Santacruz MD [address] [place] [phone] PCP - General 08/17/21 documented as of this encounter
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
--- OUTSIDE RECORDS SUMMARY | 2023-12-31 16:46 | XMS_ITS | Encounter Summary ---
Author Organization [facility] Address [address] [place] [address] Care Team Providers Care Concessions Manager Name Role Phone Alina Santacruz MD Primary Care Provider [phone] Reason for Referral * Referral (Emergency) - Closed Specialty Diagnoses / Procedures Referred By Contact Referred To Contact Gastroenterology / Gastroenterology and Hepatology Diagnoses Lower GI bleed Procedures COLONOSCOPY MA COLONOSCOPY FLX DX W/COLLJ SPEC WHEN PFRMD MA COLONOSCOPY W/BIOPSY SINGLE/MULTIPLE MA COLSC FLX W/REMOVAL LESION BY HOT BX FORCEPS ANESTHESIA LOWER INTST ENDOSCOPIC PX NOS Alina Santacruz MD [address] [address] [place] [address] [place] [id number] Referral ID Status Reason Start Date Expiration Date Visits Re quested Visits Authorized [id number] Closed 11/06/2022 1 1 Encounter Details Date Type Department Care Team (Latest Contact Info) Description 11/06/2022 Transcribe Orders [facility] Gastroenterology - Main [place] [address] [place] [address] Alina Santacruz MD [address] [address] Lower GI bleed (Primary Dx) Social History Tobacco Use Types Packs/Day Years Used Date Smoking Tobacco: Every Day Cigarettes 1 21 Smokeless Tobacco: Never Interpersonal Safety Answer Date Record ed Physically Hurt Never 01/04/2020 Verbally Threaten Not on file 01/04/2020 Sex and Gender Information Value Date Recorded Sex Assigned at Not on file Gender Identity Female 08/17/2021 11:20 EDT Sexual Orientation Not on file documented as of this encounter Plan of Treatment Upcoming Encounters Date Type Department Care Team (Late st Contact Info) Description 01/07/2024 12:45 EDT Phlebotomy Only [facility] Hematology & Oncology [address] [phone] Blood Doctor, [facility] Hem Onc 01/07/2024 13:30 EDT Office Visit [facility] Hematology & Oncology [address] [phone] Maria Alejandra Jung MD [address] [place] [address], [facility] [address] [place] [phone] 01/16/2024 14:30 EDT Appointment [facility] Breast Imaging Mammography [address] [phone] Scheduled Orders Name Type Priority Associated Diagnoses Orde r Schedule COLONOSCOPY GI Routine Lower GI bleed Ordered: 11/06/2022 documented as of this encounter Visit Diagnoses Diagnosis Lower GI bleed- Primary Hemorrhage of gastrointestinal tract, unspecified documented in this encounter Care Teams Concessions Manager Relationship Specialty Start Date End Date Alina Santacruz MD [address] [place] [phone] PCP - General 08/17/21 documented as of this encounter
--- OUTSIDE RECORDS SUMMARY | 2023-12-31 16:46 | XMS_ITS | Encounter Summary ---
Author Organization [facility] Address [address] [place] [address] Care Team Providers Care Ward Assistant Name Role Phone Alina Santacruz MD Primary Care Provider [phone] Encounter Details Date Type Department Care Team (Late Contact Info) Description 08/03/2022 9:00 EST Phlebotomy Only [facility] ED Center 2 Phlebotomy [address] [place], [place] [address] Flower Arranger, Acc Phlebotomy Hypertension, unspecified type Social History Tobacco Use Types Packs/Day Years Used Date Smoking Tobacco: Every Day Cigarettes 0.5 21 Smokeless Tobacco: Never Interpersonal Safety Answer [...] Info) Description 01/07/2024 12:45 EDT Phlebotomy Only [facility] Hematology & Oncology [address] [phone] Blood Doctor, [facility] Hem Onc 01/07/2024 13:30 EDT Office Visit [facility] Hematology & Oncology [address] [phone] Maria Alejandra Jung MD [address] [facility], [facility] [address] [place] [phone] 01/16/2024 14:30 EDT Appointment [facility] Breast Imaging Mammography - [facility] [address] [place] [address] documented as of this encounter Procedures Procedure Name Priority Date/Time Associated Diagnosis Comments BASIC METABOLIC PANEL (BMP) Routine 08/03/2022 9:21 EST Hypertension, unspecified type documented in this encounter Results * (ABNORMAL) BASIC METABOLIC PANEL (BMP) (08/03/2022 9:21 EST) Sodium 141 136 - 145 mmol/L 08/03/2022 10:23 [facility] Potassium 5.6(H) 3.5 - 5.0 mmol/L 08/03/2022 10:23 [facility] Chloride 102 96 - 110 mmol/L 08/03/2022 10:23 [facility] CO2 Total 30 22 - 32 mmol/L 08/03/2022 10:23 [facility] Anion Gap 9 5 - 14 08/03/2022 10:23 [facility] Glucose 80 70 - 100 mg/dL 08/03/2022 10:23 [facility] Calcium 9.4 8.5 - 10.5 mg/dL 08/03/2022 10:23 [facility] BUN 18 10 - 26 mg/dL 08/03/2022 10:23 [facility] Creatinine 0.97 0.52 - 1.04 mg/dL 08/03/2022 10:23 [facility] eGFR 65 >60 mL/min/1.73 m2 08/03/2022 10:23 [facility] Blood VENOUS BLOOD / Unknown Venipuncture / Unknown 08/03/2022 9:21 EST 08/03/2022 9:55 EST Alina Santacruz MD CHEMISTRY & BLOOD GA S ORDERABLES [facility] [address] [place] [address] documented in this encounter Visit Diagnoses Diagnosis Hypertension, unspecified type documented in this encounter Care Teams Ward Assistant Relationship Specialty Start Date End Date Alina Santacruz MD [address] [place] [phone] PCP - General 08/17/21 documented as of this encounter
--- OUTSIDE RECORDS SUMMARY | 2023-12-31 16:46 | XMS_ITS | Encounter Summary ---
Author Organization [facility] Address [address] [place] [address] Care Team Providers Care Director Of Marketing Operations Name Role Phone Alina Santacruz MD Primary Care Provider [phone] Encounter Details Date Type Department Care Team (Latest Contact Info) Description 06/11/2023 Travel Social History Tobacco Use Types Packs/Day Years [...] No 11/15/2022 documented as of this encounter Plan of Treatment Upcoming Encounters Date Type Department Care Team (Late st Contact Info) Description 01/07/2024 12:45 EDT Phlebotomy Only [facility] Hematology & Oncology - [address] [phone] Blood Doctor, [facility] Hem Onc 01/07/2024 13:30 EDT Office Visit [facility] Hematology & Oncology [address] [phone] Maria Alejandra Jung MD [address] [place] [address], [facility], Level [address] [place] [phone] 01/16/2024 14:30 EDT Appointment [facility] Breast Imaging Mammography - [address] [phone] documented as of this encounter Visit Diagnoses Not on filedocumented in this encounter Care Teams Director Of Marketing Operations Relationship Specialty Start Date End Date Alina Santacruz MD [address] [place] [phone] PCP - General 08/17/21 documented as of this encounter
--- OUTSIDE RECORDS SUMMARY | 2023-12-31 16:46 | XMS_ITS | Encounter Summary ---
Author Organization [facility] Address [address] [place] [address] Care Team Providers Care Nursing Clinical Director Name Role Phone Alina Santacruz MD Primary Care Provider [phone] Encounter Details Date Type Department Care Team (Latest Contact Info) Description 11/15/2022 Travel Social History Tobacco Use Types Packs/Day [...] Description 01/07/2024 12:45 EDT Phlebotomy Only [facility] Hematology & Oncology [address] [phone] Blood Doctor, [facility] Hem Onc 01/07/2024 13:30 EDT Office Visit [facility] Hematology & Oncology [address] [phone] Maria Alejandra Jung MD [address] [facility], Level [address] [place] [phone] 01/16/2024 14:30 EDT [facility] Mammography - [address] [phone] documented as of this encounter Visit Diagnoses Not on filedocumented in this encounter Care Teams Nursing Clinical Director Relationship Specialty Start Date End Date Alina Santacruz MD [address] [place] [phone] PCP - General 08/17/21 documented as of this encounter
--- OUTSIDE RECORDS SUMMARY | 2023-12-31 16:46 | XMS_ITS | Encounter Summary ---
Author Organization [facility] Address [address] [place] [address] Care Team Providers Care Poly Area Supervisor Name Role Phone Alina Santacruz MD Primary Care Provider [phone] Reason for Visit * Reason Onset Date Comments Colonoscopy 11/08/2022 Encounter Details Date Type Department Care Team ([facility] st Contact Info) Description 11/08/2022 Telephone [facility] Gastroenterology - [address] [address] James Culver MD 111 [facility], Level 5 [place] [address] Colonoscopy Social History Tobacco Use Types Packs/Day Years [...] on file documented as of this encounter Ordered Prescriptions Prescription Sig Dispensed Refills Start Date End Da te sodium,potassium,mag sulfates (SUPREP BOWEL PREP) kit Please follow instructions provided by GI office. 1 Kit 11/08/2022 documented in this encounter Miscellaneous Notes * Telephone Encounter - Veda Moore - 11/08/2022 5659 EDT Patient scheduled for COLONOSCOPY with MAC on 11/15. Would like Suprep sent to [facility] in [place]. She states her insurance has covered it before. documented in this encounter Plan of Treatment Upcoming Encounters Date Type Department Care Team (Late st Contact Info) Description 01/07/2024 12:45 EDT Phlebotomy Only [facility] Hematology & Oncology [address] [phone] Blood Doctor, [facility] Hem Onc 01/07/2024 13:30 EDT Office Visit [facility] Hematology & Oncology [address] [phone] Maria Alejandra Jung MD [address] [place] [address], Level 2 [place] [phone] 01/16/2024 14:30 EDT Appointment [facility] Breast Imaging Mammography - [address] [phone] documented as of this encounter Visit Diagnoses Not on filedocumented in this encounter Care Teams Poly Area Supervisor Relationship Specialty Start Date End Date Alina Santacruz MD [address] [place] [phone] PCP - General 08/17/21 documented as of this encounter
--- OUTSIDE RECORDS SUMMARY | 2023-12-31 16:46 | XMS_ITS | Encounter Summary ---
Author Organization [facility] Address [address] [place] [address] Care Team Providers Care Senior Design Engineer Name Role Phone Alina Santacruz MD Primary Care Provider [phone] Reason for Visit * Referral (Routine) - Authorization Not Required Specialty Diagnoses / Procedures Referred By Contac t Referred To Contact Neurology Diagnoses Pain in left foot Sciatica, left side Procedures EMG/NERVE CONDUCTION STUDY Alina Santacruz MD [address] [address] [facility] Neurophys [address] [place] [address] Referral ID Status Reason Start Date Expiration Date Visits Requested Visits Authorized [id number] Authorization Not Required 1 1 Encounter Details Date Type Department Care Team (Latest Contact Info) Description 05/23/2023 10:36 EST - 05/23/2023 23:59 [facility] Encounter [facility] Neurophysiology - [facility] [address] [place] [address] Jass Lubin MD 1 [facility], Level 2 [place] [address] Left leg pain (Primary Dx); Left arm pain Discharge Disposition: Home or Self Care Social [...] or Self Care documented in this encounter Progress Notes * Jass Lubin MD - 05/23/2023 1040 EST Images from the original note were not included. Department of Neurological Sciences Nerve Conduction and Electromyography Report/ Neuromuscular Consultation Note HPI: Danielle Soto is a 68 y.o. 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 She reports chronic left leg and foot pain. She has had multiple EMGs previously. She has previously trialed amitriptyline, duloxetine, gabapentin, lyrica with minimal improvement in her symptoms. She has also been evaluated by two orthopedic surgeons who have not recommended surgery in the past. 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 Low back pain started in 2003 after an accident. She last seen by Ortho in February 2022 they felt that her symptoms could not be easily explained even in the setting of cervical myelomalacia from the accident, ongoing mild C5-6 stenosis, bilateral foraminal stenosis at L5-S1 and a scoliotic deformity in the thoracolumbar spine largely because the entirety of the left leg is affected by the symptoms. Today she presents to the EMG lab with her . She was tearful during the entire encounter. What is bothering her most is that her entire left side of her body feels like it's burning all the time. This includes the entirety of the left arm, the left abdomen, and the entire left leg. For pain she's currently taking 30 mg morphine ER daily, 60 mg duloxetine daily, and Lyrica 150 mg TID, none of which is relieving her pain. She says all she can do is lie in bed all day for years from pain. Has both neck and back pain. She ambulates with a rollator. She has seen a pain doctor in the past but that doctor moved away and she has only been following up with her PCP in [facility] who is managing her pain medications. She is a current daily smoker, smokes 6 cigarettes/day. No current alcohol use. She is smoking medical marijuana but this does not relieve her pain. Previous work up: (all lab values and available NCS/ EMG studies/ and imaging studies tracings were independently reviewed.) Abnormal labs: - Normal labs: - Imaging: MR C-spine 12/28/2021: Pertinent findings for today's evaluation include C2-3 mild spinal canal stenosis due to disc osteophyte C4-5 minimal flattening of the ventral thecal sac due to central disc protrusion C5-6 mild canal stenosis from a disc bulge and ligamentum flavum hypertrophy. Moderate right neuroforaminal stenosis. C6-7 moderate left neuroforaminal stenosis. Posterior odontoid cortical irregularity likely sequelae of prior traumatic injury. C1 level spinal cord dorsal of the right lateral abnormal T2 hyperintense signal suggestive of myelomalacia. MRI L-spine 12/28/2021 2 mm retrolisthesis of L5 over S1 L1-2 with mild right neuroforaminal stenosis L2-3 mild right neuroforaminal stenosis L3-4 mild spinal canal stenosis from a central disc protrusion and dorsal epidural fat. Mild left neuroforaminal stenosis. L4-5 moderate left mild right neuroforaminal stenosis. Compression and flattening of the exiting C9xzzva root L5-S1 moderate bilateral neuroforaminal stenosis with compression of the exiting L5 nerve root NCS/ EMG: we do not have access to any prior EMGs Allergies: Patient has no known allergies. Current Outpatient Medications on File Prior to Visit Medication Sig Dispense Refill albuterol 90 mcg/actuation inhaler Inhale 180 mcg as directed every 4 hours. amitriptyline (ELAVIL) 25 mg tablet Take 25 mg by mouth daily. atenoloL (TENORMIN) 100 mg tablet Take 100 mg by mouth daily. atorvastatin (LIPITOR) 10 mg tablet Take 10 mg by mouth daily. candesartan (ATACAND) 4 mg tablet Take 4 mg by mouth daily. Cholecalciferol, Vitamin D3, 50 mcg capsule Take 2,000 Units by mouth daily. (Patient not taking: Reported on 10/30/2022) clobetasoL (TEMOVATE) 0.05 % cream Apply topically 2 times daily. (Patient not taking: Reported on 10/30/2022) cyanocobalamin (VITAMIN B-12) 1,000 mcg tablet Take 1,000 mcg by mouth daily. (Patient not taking: Reported on 10/30/2022) DULoxetine (CYMBALTA) 60 mg capsule Take 60 mg by mouth daily. folic acid (FOLVITE) 1 mg tablet Take 1 mg by mouth daily. fosinopriL-hydrochlorothiazide (MONOPRIL-HCT) 10-12.5 mg per tablet Take 1 Tablet by mouth daily. LORazepam (ATIVAN) 1 mg tablet Take 1 mg by mouth 3 times daily. morphine (MS CONTIN) 30 mg CR tablet Take 30 mg by mouth every 12 hours. naloxone (NARCAN) 4 mg/actuation nasal spray 1 [place] by nasal route as needed for Opioid Reversal. pregabalin (LYRICA) 150 mg capsule Take 150 mg by mouth 2 times daily. promethazine (PHENERGAN) 25 mg tablet Take 25 mg by mouth every 4 hours. (Patient not taking: Reported on 10/30/2022) sodium,potassium,mag sulfates (SUPREP BOWEL PREP) kit Please follow instructions provided by GI office. 1 Kit 0 tiotropium-olodateroL (STIOLTO RESPIMAT) 2.5-2.5 mcg/actuation inhaler Inhale as directed daily. No current facility-administered medications on file prior to visit. Past Medical History: No past medical history on file. Family History: No family history on file. Social History: Social History Socioeconomic History Marital status: Single [...] on file Housing Stability: Not on file Physical Exam: General: Tearful woman in no acute distress. Skin/MSK: Visible skin is warm, dry, and intact without rashes/erythema. Mental status: Alert and attentive. Provides detailed history with fluent language without dysarthria. Follows requests appropriately. Motor: Bilateral atrophy of the intrinsic hand muscles Arms Right (/5) Left (/5) Shoulder Abduction (deltoid) 5 5 Elbow Flexion (biceps) 5 5 Elbow Extension (triceps) 5 5 Wrist Extension 5 5 Finger abduction (FDI and ADM) 5 5 Thumb Abduction (APB) 5 5 Legs Right Left Hip Flexion 5 5 Hip Extension 5 5 Knee Flexion 5 5 Knee Extension 5 5 Dorsiflexion (AT) 5 5 Plantarflexion (Gastroc) 5 5 Toe extension 5 5 Upper motor neuron signs: Bilateral cabello reflex positive Sustained ankle clonus on the right, 2-3 beats clonus on the left Sensory: Light touch: hypersensitivity to light touch in left arm and leg Pinprick and cold: impaired in a patchy distribution in left arm and leg Vibration: intact Reflexes: Right Left Biceps (C5-6) 3+ 3+ Brachioradialis (C5-6) 3+ 3+ Triceps (C7-8) 3+ 3+ Patellar (L4) 3+ 3+ Achilles (S1) 4+ 3+ Plantar flexion flexion Gait: Patient observed ambulating with rollator. Gait is slow, wide-based, antalgic, and unsteady. EMG/NCS: Electrodiagnostic Findings For waveforms/values of EMG/nerve [...] the resident/ fellow's note. Jass Lubin M.D. Vault Teller of Neurology ABPN Board Certified, Neurology ABEM Board Certified, EMG documented in this encounter Plan of Treatment Upcoming Encounters Date Type Department Care Team (Late st Contact Info) Description 01/07/2024 12:45 EDT Phlebotomy Only [facility] Hematology & Oncology [address] [phone] Blood Doctor, [facility] Hem Onc 01/07/2024 13:30 EDT Office Visit [facility] Hematology & Oncology [address] [phone] Maria Alejandra Jung MD [address] [place] [address], [address] 2 [place] [phone] 01/16/2024 14:30 EDT Appointment [facility] Breast Imaging Mammography - [address] [phone] documented as of this encounter Visit Diagnoses Diagnosis Left leg pain- Primary Pain in limb Left arm pain Pain in limb documented in this encounter Care Teams Senior Design Engineer Relationship Specialty Start Date End Date Alina Santacruz MD [address] [place] [phone] PCP - General 08/17/21 documented as of this encounter
--- OUTSIDE RECORDS SUMMARY | 2023-12-31 16:46 | XMS_ITS | Encounter Summary ---
Author Organization [facility] Address [address] [place] [address] Care Team Providers Care Risk And Insurance Consultant Name Role Phone Alina Santacruz MD Primary Care Provider [phone] Encounter Details Date Type Department Care Team (Late Contact Info) Description 06/26/2023 Lab Requisition [facility] Pathology & Laboratory Medicine [address] [phone] Outr Resulting Lab, Provider Social History Tobacco Use Types Packs/Day Years [...] Info) Description 01/07/2024 12:45 EDT Phlebotomy Only [facility] Hematology & Oncology [address] [phone] Blood Doctor, [facility] Hem Onc 01/07/2024 13:30 EDT Office Visit [facility] Hematology & Oncology [address] [phone] Maria Alejandra Jung MD 111 [facility], Level 2 [place] [address] 01/16/2024 14:30 EDT Appointment [facility] Breast Imaging Mammography - [facility] [address] [place], [place] [phone] documented as of this encounter Procedures Procedure Name Priority Date/Time Associated Diagnosis Comments SPEP, INCLUDES QUANTITATION OF MONOCLONAL SPIKE PERFORMABLE Today 06/25/2023 13:30 EST SERUM FREE LIGHT CHAINS Routine 06/25/2023 13:30 EST SPEP, INCLUDES QUANTITATION OF MONOCLONAL SPIKE Routine 06/25/2023 13:30 EST PROTEIN, TOTAL Today 06/25/2023 13:30 EST documented in this encounter Results * (ABNORMAL) SPEP, INCLUDES QUANTITATION OF MONOCLONAL SPIKE PERFORMABLE (06/25/2023 13:30 EST) Albumin % 56.2 55.8 - 66.1 % 06/27/2023 14:07 [facility] Albumin g/dL 4.2 3.6 - 5.2 g/dL 06/27/2023 14:07 [facility] Alpha-1 % 4.5 2.9 - 4.9 % 06/27/2023 14:07 [facility] Alpha-1 g/dL 0.30 0.15 - 0.40 g/dL 06/27/2023 14:07 [facility] Alpha-2 % 13.7(H) 7.1 - 11.8 % 06/27/2023 14:07 [facility] Alpha-2 g/dL 1.00 0.50 - 1.00 g/dL 06/27/2023 14:07 [facility] Beta % 9.4 8.4 - 13.1 % 06/27/2023 14:07 [facility] Beta g/dL 0.70 0.60 - 1.20 g/dL 06/27/2023 14:07 [facility] Gamma % 16.2 11.1 - 18.8 % 06/27/2023 14:07 [facility] Gamma g/dL 1.20 0.60 - 1.60 g/dL 06/27/2023 14:07 [facility] SPEP Comment No apparent monoclonal protein seen on serum electrophoresis 06/27/2023 14:07 [facility] Comment:See scanned/suppleme ntary report. Total Protein 7.5 6.3 - 8.2 g/dL 06/27/2023 14:07 [facility] Blood VENOUS BLOOD / Unknown 06/25/2023 13:30 EST 06/26/2023 17:32 EST Provider Outr Resulting Lab CHEMISTRY & BLOOD GAS ORDERABLES Performing Organization Address [facility] Co de Phone Number [facility] [address] [place] [address] * PROTEIN, TOTAL (06/25/2023 13:30 EST) Blood VENOUS BLOOD / Unknown 06/25/2023 13:30 EST 06/26/2023 17:32 EST Provider Outr Resulting Lab CHEMISTRY & BLOOD GAS ORDERABLES Performing Organization Address [facility] Co de Phone Number [facility] [address] [place] [address] * (ABNORMAL) SERUM FREE LIGHT CHAINS (06/25/2023 13:30 EST) Lund Free Lt Chain 3.50(H) 0.33 - 1.94 mg/dL 06/27/2023 9:19 [facility] Lambda Free Lt Chain 1.68 0.57 - 2.63 mg/dL 06/27/2023 9:19 [facility] Lund/Lambda Ratio 2.08(H) 0.26 - 1.65 06/27/2023 9:19 [facility] Blood VENOUS BLOOD / Unknown 06/25/2023 13:30 EST 06/26/2023 17:32 EST Provider Outr Resulting Lab CHEMISTRY & BLOOD GAS ORDERABLES [facility] [address] [place] [address] documented in this encounter Visit Diagnoses Not on filedocumented in this encounter Care Teams Risk And Insurance Consultant Relationship Specialty Start Date End Date Alina Santacruz MD [address] [place] [phone] PCP - General 08/17/21 documented as of this encounter
--- OUTSIDE RECORDS SUMMARY | 2023-12-31 16:46 | XMS_ITS | Encounter Summary ---
Author Organization [facility] Address [address] [place] [address] Care Team Providers Care Air Quality Manager Name Role Phone Alina Santacruz MD Primary Care Provider Reason for Visit * Reason Comments New Patient Visit * Consult (Routine) - Authorization Not Required Specialty Diagnoses / Procedures Referred By Radha casey Referred To Contact [facility] Ep2 Hem/Onc [address] [place] [phone] [facility] Hem/Onc [address] [place] [phone] Referral ID Status Reason Start Date Expiration Date Visits Requested Visits Authorized [id number] Authorization Not Required 1 1 Encounter Details Date Type Department Care Team ([facility] st Contact Info) Description 07/11/2022 10:00 EST Office Visit [facility] Hematology & Oncology - [address] [address] Iman Hodge, [facility] 111 [facility] 2 [place] [address] 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); Grief Social History Tobacco Use Types Packs/Day Years [...] Info) Description 01/07/2024 12:45 EDT Phlebotomy Only [facility] Hematology & Oncology [address] [phone] Blood Doctor, [facility] Hem Onc 01/07/2024 13:30 EDT Office Visit [facility] Hematology & Oncology [address] [phone] Maria Alejandra Jung MD [address] [place] [address], Level 2 [place] [phone] 01/16/2024 14:30 EDT Appointment [facility] Breast Imaging Mammography - [address] [phone] documented as of this encounter Visit Diagnoses Diagnosis Adjustment reaction with anxiety and depression- Primary Adjustment disorder with mixed anxiety and depressed mood Grief Adjustment disorder with depressed mood documented in this encounter Care Teams Air Quality Manager Relationship Specialty Start Date End Date Alina Santacruz MD [address] [place] [phone] PCP - General 08/17/21 documented as of this encounter
--- OUTSIDE RECORDS SUMMARY | 2023-12-31 16:46 | XMS_ITS | Encounter Summary ---
Author Organization [facility] Address [address] [place] [address] Care Team Providers Care Chemical Process Analyst Name Role Phone Alina Santacruz MD Primary Care Provider [phone] Encounter Details Date Type Department Care Team (Latest Contact Info) Description 01/01/2023 Transcribe Orders [facility]ICAL [facility] Alina Olivares MD [address] [phone] Rectal bleeding (Primary Dx); Hyperkalemia; Hypertension, unspecified type Social History Tobacco Use [...] Only [facility] Hematology & Oncology - Main [place] [address] [place] [address] Blood Doctor, [facility] Hem Onc 01/07/2024 13:30 EDT Office Visit [facility] Hematology & Oncology - [address] [phone] Maria Alejandra Jung MD [address] [place] [address], Level 2 [place] [address] 01/16/2024 14:30 EDT [facility]ointment [facility] Breast [facility] Mammography - [address] [phone] documented as of this encounter Results * (ABNORMAL) COMPLETE BLOOD COUNT (01/18/2023 9:17 EDT) WBC 5.71 4.00 - 12.40 K/cmm 01/18/2023 9:53 EDT [facility] RBC 3.72(L) 3.86 - 5.04 M/cmm 01/18/2023 9:53 [facility] Hemoglobin 11.7 11.6 - 15.2 g/dL 01/18/2023 9:53 [facility] HCT 33.7(L) 34.9 - 44.4 % 01/18/2023 9:53 [facility] MCV 91 81 - 98 fL 01/18/2023 9:53 [facility] MCH 31.5 26.7 - 33.3 pg 01/18/2023 9:53 [facility] MCHC 34.7 32.1 - 35.9 g/dL 01/18/2023 9:53 [facility] RDW-CV 13.6 <14.7 % 01/18/2023 9:53 [facility] RDW-SD 45.1 <50.4 fl 01/18/2023 9:53 [facility] PLT 251 141 - 377 K/cmm 01/18/2023 9:53 [facility] MPV 10.0 9.5 - 12.7 fL 01/18/2023 9:53 [facility] Blood VENOUS BLOOD / Unknown Venipuncture / Unknown 01/18/2023 9:17 EDT 01/18/2023 9:39 EDT Alina Santacruz MD HEMATOLOGY & PF4 ORD ERABLES Performing Organization Address City/[facility]/ZIP Co de Phone Number [facility] [address] [place] [address] * (ABNORMAL) BASIC METABOLIC PANEL (BMP) (01/18/2023 9:17 EDT) Sodium 136 136 - 145 mmol/L 01/18/2023 10:13 EDT [facility] Potassium 4.7 3.5 - 5.0 mmol/L 01/18/2023 10:13 EDT [facility] Chloride 99 96 - 110 mmol/L 01/18/2023 10:13 EDT [facility] CO2 Total 25 22 - 32 mmol/L 01/18/2023 10:13 [facility] Anion Gap 12 5 - 14 mmol/L 01/18/2023 10:13 [facility] Glucose 124(H) 70 - 99 mg/dl 01/18/2023 10:13 [facility] Calcium 9.3 8.5 - 10.5 mg/dL 01/18/2023 10:13 [facility] BUN 16 10 - 26 mg/dL 01/18/2023 10:13 [facility] Creatinine 0.90 0.52 - 1.04 mg/dL 01/18/2023 10:13 [facility] eGFR 71 >60 mL/min/1.73 m2 01/18/2023 10:13 [facility] Blood VENOUS BLOOD / Unknown Venipuncture / Unknown 01/18/2023 9:17 EDT 01/18/2023 9:39 EDT Alina Santacruz MD CHEMISTRY & BLOOD GA S ORDERABLES Performing Organization Address City/[facility]/ZIP Co de Phone Number [facility] [address] [place] [address] * FERRITIN (01/18/2023 9:17 EDT) Ferritin 178 10 - 291 ng/mL 01/18/2023 10:59 EDT [facility] Blood VENOUS BLOOD / Unknown Venipuncture / Unknown 01/18/2023 9:17 EDT 01/18/2023 9:39 EDT Alina Santacruz MD CHEMISTRY & BLOOD GA S ORDERABLES [facility] [address] [place] [address] documented in this encounter Visit Diagnoses Diagnosis Rectal bleeding- Primary Hemorrhage of rectum and anus Hyperkalemia Hyperpotassemia Hypertension, unspecified type documented in this encounter Care Teams Chemical Process Analyst Relationship Specialty Start Date End Date Alina Santacruz MD [address] [place] [phone] PCP - General 08/17/21 documented as of this encounter
--- OUTSIDE RECORDS SUMMARY | 2023-12-31 16:46 | XMS_ITS | Encounter Summary ---
Author Organization [facility] Address [address] [place] [address] Care Team Providers Care Professor Of Education Name Role Phone Alina Santacruz MD Primary Care Provider [phone] Encounter Details Date Type Department Care Team (Late Contact Info) Description 07/03/2023 Orders Only [facility] Hematology Oncology [address] [phone] Patrick Hill RN 111 [place] [address] Elevated serum immunoglobulin free light chain level [...] EDT Phlebotomy Only [facility] Hematology Oncology [address] [address] Blood Doctor, [facility] [place] [facility] Hem Onc 01/07/2024 13:30 EDT Office Visit [facility] Oncology [address] [address] Maria Alejandra Jung MD 111 [facility], [facility], Level 2 [place] [address] 01/16/2024 14:30 EDT Appointment Medical Center Breast Imaging Mammography - [facility] 111 [place], [place] [phone] documented as of this encounter Results * COMPREHENSIVE METABOLIC PANEL (ONCOLOGY USE ONLY-INC MG) (07/12/2023 13:49 EST) Sodium 138 136 - 145 mmol/L 07/12/2023 14:24 [facility] Potassium 4.9 3.5 - 5.0 mmol/L 07/12/2023 14:24 [facility] Chloride 103 96 - 110 mmol/L 07/12/2023 14:24 [facility] CO2 Total 27 22 - 32 mmol/L 07/12/2023 14:24 [facility] Glucose 89 70 - 99 mg/dl 07/12/2023 14:24 [facility] BUN 11 10 - 26 mg/dL 07/12/2023 14:24 [facility] Creatinine 0.86 0.52 - 1.04 mg/dL 07/12/2023 14:24 [facility] eGFR 74 >60 mL/min/1.7 3m2 07/12/2023 14:24 [facility] Total Protein 7.2 6.3 - 8.2 g/dL 07/12/2023 14:24 [facility] Albumin 4.2 3.4 - 4.9 g/dL 07/12/2023 14:24 [facility] Alkaline Phosphatase 72 38 - 126 U/L 07/12/2023 14:24 [facility] AST 30 15 - 46 U/L 07/12/2023 14:24 [facility] ALT 17 <35 U/L 07/12/2023 14:24 [facility] Bilirubin, Total 0.5 <1.4 mg/dL 07/12/19 14:24 [facility] Calcium 9.1 8.5 - 10.5 mg/dL 07/12/2023 14:24 [facility] Magnesium 1.9 1.7 - 2.8 mg/dL 07/12/2023 14:24 [facility] Albumin/Globulin Ratio 1.4 1.0 - 2.5 07/12/2023 14:24 [facility] Anion Gap 8 5 - 14 mmol/L 07/12/2023 14:24 [facility] Blood VENOUS BLOOD / Unknown Venipuncture / Unknown 07/12/2023 13:49 EST 07/12/2023 13:52 EST Maria Alejandra Jung MD CHEMISTRY & BLOOD GA S ORDERABLES Performing Organization Address City/State/[facility] Co de Phone Number [facility] [address] [place] [address] * (ABNORMAL) COMPLETE BLOOD COUNT AND DIFFERENTIAL (07/12/2023 13:49 EST) WBC 7.96 4.00 - 12.40 K/cmm 07/12/2023 14:09 [facility] RBC 3.97 3.86 - 5.04 M/cmm 07/12/2023 14:09 [facility] Hemoglobin 12.8 11.6 - 15.2 g/dL 07/12/2023 14:09 [facility] HCT 35.6 34.9 - 44.4 % 07/12/2023 14:09 [facility] MCV 90 81 - 98 fL 07/12/2023 14:09 [facility] MCH 32.2 26.7 - 33.3 pg 07/12/2023 14:09 [facility] MCHC 36.0(H) 32.1 - 35.9 g/dL 07/12/2023 14:09 [facility] RDW-CV 13.6 <14.7 % 07/12/2023 14:09 [facility] RDW-SD 45.0 <50.4 fl 07/12/2023 14:09 [facility] PLT 245 141 - 377 K/cmm 07/12/2023 14:09 [facility] MPV 10.8 9.5 - 12.7 fL 07/12/2023 14:09 [facility] % Neutrophils 56.1 % 07/12/2023 14:09 [facility] % Lymphocytes 32.2 % 07/12/2023 14:09 [facility] % Monocytes 9.9 % 07/12/2023 14:09 [facility] % Eosinophils 1.0 % 07/12/2023 14:09 [facility] % Basophils 0.4 % 07/12/2023 14:09 [facility] % Immature Grans 0.4 % 07/12/19 14:09 [facility] Absolute Neutrophils 4.47 2.20 - 8.85 K/cmm 07/12/2023 14:09 [facility] Absolute Lymphocytes 2.56 1.09 - 3.30 K/cmm 07/12/2023 14:09 [facility] Absolute Monocytes 0.79 0.10 - 0.80 K/cmm 07/12/2023 14:09 [facility] Absolute Eosinophils 0.08 0.03 - 0.61 K/cmm 07/12/2023 14:09 [facility] ABS Basophils 0.03 0.01 - 0.11 K/cmm 07/12/2023 14:09 [facility] Absolute Immature Grans 0.03 0.00 - 0.06 K/cmm 07/12/2023 14:09 [facility] Type of Differential: Auto 07/12/2023 14:09 [facility] Blood VENOUS BLOOD / Unknown Venipuncture / Unknown 07/12/2023 13:49 EST 07/12/2023 13:52 EST Maria Alejandra Jung MD PACKAGES & DNA PROBE ORDERABLES [facility] [address] [place] [address] documented in this encounter Visit Diagnoses Diagnosis Elevated serum immunoglobulin free light chain level- Primary Other nonspecific findings on examination of blood documented in this encounter Care Teams Professor Of Education Relationship Specialty Start Date End Date Alina Santacruz MD [address] [place] [phone] PCP - General 08/17/21 documented as of this encounter
--- OUTSIDE RECORDS SUMMARY | 2023-12-31 16:46 | XMS_ITS | Encounter Summary ---
Author Organization [facility] Address [address] [place] [address] Care Team Providers Care Wire Dropper Name Role Phone Alina Santacruz MD Primary Care Provider Encounter Details Date Type Department Care Team (Late Contact Info) Description 01/18/2023 9:15 EDT Phlebotomy Only [facility] ED Center 2 Phlebotomy [address] [place], [place] [address] Managed Services Consultant, Acc Phlebotomy Rectal bleeding; Hyperkalemia; Hypertension, unspecified type Social History Tobacco [...] Only [facility] Hematology & Oncology [address] [address] Blood Doctor, [facility] [place] [facility] Hem Onc 01/07/2024 13:30 EDT Office Visit [facility] Oncology [address] [address] Maria Alejandra Jung MD 111 [facility], [facility], Level 2 [place] [address] 01/16/2024 14:30 EDT Appointment Medical Center Breast Imaging Mammography - [facility] [address] [place], [place] [address] documented as of this encounter Procedures Procedure Name Priority Date/Time Associated Diagnosis Comments COMPLETE BLOOD COUNT Routine 01/18/2023 9:17 EDT Rectal bleeding Hyperkalemia Hypertension, unspecified type FERRITIN Routine 01/18/2023 9:17 EDT Rectal bleeding Hyperkalemia Hypertension, unspecified type BASIC METABOLIC PANEL (BMP) Routine 01/18/2023 9:17 EDT Rectal bleeding Hyperkalemia Hypertension, unspecified type documented in this encounter Results * (ABNORMAL) COMPLETE BLOOD COUNT (01/18/2023 9:17 EDT) WBC 5.71 4.00 - 12.40 K/cmm 01/18/2023 9:53 EDT [facility] RBC 3.72(L) 3.86 - 5.04 M/cmm 01/18/2023 9:53 T [facility] Hemoglobin 11.7 11.6 - 15.2 g/dL 01/18/2023 9:53 EDT [facility] HCT 33.7(L) 34.9 - 44.4 % 01/18/2023 9:53 T [facility] MCV 91 81 - 98 fL 01/18/2023 9:53 T [facility] MCH 31.5 26.7 - 33.3 pg 01/18/2023 9:53 [facility] MCHC 34.7 32.1 - 35.9 g/dL 01/18/2023 9:53 T [facility] RDW-CV 13.6 <14.7 % 01/18/2023 9:53 [facility] RDW-SD 45.1 <50.4 fl 01/18/2023 9:53 T [facility] PLT 251 141 - 377 K/cmm 01/18/2023 9:53 [facility] MPV 10.0 9.5 - 12.7 fL 01/18/2023 9:53 [facility] Blood VENOUS BLOOD / Unknown Venipuncture / Unknown 01/18/2023 9:17 EDT 01/18/2023 9:39 EDT Alina Santacruz MD HEMATOLOGY & PF4 ORD ERABLES [facility] [address] [place] [address] * (ABNORMAL) BASIC METABOLIC PANEL (BMP) (01/18/2023 9:17 EDT) Sodium 136 136 - 145 mmol/L 01/18/2023 10:13 [facility] Potassium 4.7 3.5 - 5.0 mmol/L 01/18/2023 10:13 [facility] Chloride 99 96 - 110 mmol/L 01/18/2023 10:13 [facility] CO2 Total 25 22 - 32 mmol/L 01/18/2023 10:13 [facility] Anion Gap 12 5 - 14 mmol/L 01/18/2023 10:13 [facility] Glucose 124(H) 70 - 99 mg/dl 01/18/2023 10:13 [facility] Calcium 9.3 8.5 - 10.5 mg/dL 01/18/2023 10:13 [facility] BUN 16 10 - 26 mg/dL 01/18/2023 10:13 [facility] Creatinine 0.90 0.52 - 1.04 mg/dL 01/18/2023 10:13 [facility] eGFR 71 >60 mL/min/1.73 m2 01/18/2023 10:13 [facility] Blood VENOUS BLOOD / Unknown Venipuncture / Unknown 01/18/2023 9:17 EDT 01/18/2023 9:39 EDT Alina Santacruz MD CHEMISTRY & BLOOD GA S ORDERABLES Performing Organization Address City/[facility] Co de Phone Number [facility] [address] [place] [address] * FERRITIN (01/18/2023 9:17 EDT) Ferritin 178 10 - 291 ng/mL 01/18/2023 10:59 EDT [facility] Blood VENOUS BLOOD / Unknown Venipuncture / Unknown 01/18/2023 9:17 EDT 01/18/2023 9:39 EDT Alina Santacruz MD CHEMISTRY & BLOOD GA S ORDERABLES Performing Organization Address City/[facility] Co de Phone Number [facility] [address] [place] [address] documented in this encounter Visit Diagnoses Diagnosis Rectal bleeding Hemorrhage of rectum and anus Hyperkalemia Hyperpotassemia Hypertension, unspecified type documented in this encounter Care Teams Wire Dropper Relationship Specialty Start Date End Date Alina Santacruz MD [address] [place] [phone] PCP - General 08/17/21 documented as of this encounter
--- OUTSIDE RECORDS SUMMARY | 2023-12-31 16:46 | XMS_ITS | Encounter Summary ---
Author Organization [facility] Address [address] [place] [address] Care Team Providers Care Snake Charmer Name Role Phone Alina Santacruz MD Primary Care Provider [phone] Reason for Visit * Reason Onset Date Comments Appointment Related 06/05/2023 Encounter Details Date Type Department Care Team ([facility] st Contact Info) Description 06/05/2023 Telephone [facility] Neurophysiology - Main [address] [address] Jass Lubin MD [address] [place] [address] 2 [place] [phone] Appointment Related Social History Tobacco Use Types [...] No 11/15/2022 documented as of this encounter Miscellaneous Notes * Telephone Encounter - Ronnie Alvaradoson - 06/05/2023 7306 EST No calls in to request EMG w consult note from 05/23. Faxed to [phone]. documented in this encounter Plan of Treatment Upcoming Encounters Date Type Department Care Team (Late st Contact Info) Description 01/07/2024 12:45 EDT Phlebotomy Only [facility] Hematology & Oncology [address] [address] Blood Doctor, [facility] Hem Onc 01/07/2024 13:30 EDT Office Visit [facility] Hematology & Oncology [address] [phone] Maria Alejandra Jung MD [address] [place] [address], Level 2 [place] [phone] 01/16/2024 14:30 EDT Appointment [facility] Breast Imaging Mammography - [address] [phone] documented as of this encounter Visit Diagnoses Not on filedocumented in this encounter Care Teams Snake Charmer Relationship Specialty Start Date End Date Alina Santacruz MD [address] [place] [phone] PCP - General 08/17/21 documented as of this encounter
--- OUTSIDE RECORDS SUMMARY | 2023-12-31 16:46 | XMS_ITS | Encounter Summary ---
Author Organization [facility] Address [address] [place] [address] Care Team Providers Care Director Of Marketing [employer] Name Role Phone Alina Santacruz MD Primary Care Provider [phone] Reason for Visit * Reason Comments Follow-up * Consult (Routine) - Authorization Not Required Specialty Diagnoses / Procedures Referred By Radha casey Referred To Contact [facility] Ep2 Hem/Onc [address] [place] [phone] [facility] Ep2 Hem/Onc [address] [place] [phone] Referral ID Status Reason Start Date Expiration Date Visits Requested Visits Authorized [id number] Authorization Not Required 1 1 Encounter Details Date Type Department Care Team ([facility] Contact Info) Description 08/08/2022 9:00 EST Office Visit [facility] Cancer Center Hematology & Oncology - [address] [address] Iman Hodge, [facility] 111 [facility] 2 [place] [phone] 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) Social History Tobacco Use Types [...] Info) Description 01/07/2024 12:45 EDT Phlebotomy Only [facility] Hematology & Oncology [address] [phone] Blood Doctor, [facility] Hem Onc 01/07/2024 13:30 EDT Office Visit [facility] Hematology & Oncology [address] [address] Maria Alejandra Jung MD [address] [place] [address], Level 2 [place] [phone] 01/16/2024 14:30 EDT Appointment [facility] Breast Imaging Mammography - [address] [phone] documented as of this encounter Visit Diagnoses Diagnosis Adjustment reaction with anxiety and depression- Primary Adjustment disorder with mixed anxiety and depressed mood documented in this encounter Care Teams Director Of Marketing [employer] Relationship Specialty Start Date End Date Alina Santacruz MD [address] [place] [phone] PCP - General 08/17/21 documented as of this encounter
--- OUTSIDE RECORDS SUMMARY | 2023-12-31 16:46 | XMS_ITS | Encounter Summary ---
Author Organization [facility] Address [address] [place] [address] Care Team Providers Care Law Office Receptionist Name Role Phone Alina Santacruz MD Primary Care Provider [phone] Encounter Details Date Type Department Care Team ([facility] Contact Info) Description 12/15/2022 12:00 EDT Phlebotomy Only [facility] ED Center 2 Phlebotomy [address] [place], [place] [address] [employer], Acc Phlebotomy Hyperkalemia Social History Tobacco Use Types Packs/Day Years [...] Upcoming Encounters Date Type Department Care Team ([facility] Contact Info) Description 01/07/2024 12:45 EDT Phlebotomy Only [facility] Cancer Center Hematology & Oncology - Main [place] [address] [place] [address] Blood Doctor, [facility] Hem Onc 01/07/2024 13:30 EDT Office Visit [facility] Cancer Center Hematology & Oncology - [address] [phone] Maria Alejandra Jung MD 111 [facility], Level 2 [place] [address] 01/16/2024 14:30 EDT Appointment Medical Center Breast Imaging Mammography - [address] [phone] documented as of this encounter Procedures Procedure Name Priority Date/Time Associated Diagnosis Comments BASIC METABOLIC PANEL (BMP) Routine 12/15/2022 12:06 EDT Hyperkalemia documented in this encounter Results * (ABNORMAL) BASIC METABOLIC PANEL (BMP) (12/15/2022 12:06 EDT) Sodium 133(L) 136 - 145 mmol/L 12/15/2022 12:58 EDT [facility] Potassium 5.9(H) 3.5 - 5.0 mmol/L 12/15/2022 12:58 T [facility] Chloride 96 96 - 110 mmol/L 12/15/2022 12:58 T [facility] CO2 Total 27 22 - 32 mmol/L 12/15/2022 12:58 [facility] Anion Gap 10 5 - 14 mmol/L 12/15/2022 12:58 [facility] Glucose 89 70 - 99 mg/dl 12/15/2022 12:58 T [facility] Calcium 9.7 8.5 - 10.5 mg/dL 12/15/2022 12:58 [facility] BUN 19 10 - 26 mg/dL 12/15/2022 12:58 [facility] Creatinine 1.05(H) 0.52 - 1.04 mg/dL 12/15/2022 12:58 T [facility] eGFR 59(L) >60 mL/min/1.73 m2 12/15/2022 12:58 EDT [facility] Blood VENOUS BLOOD / Unknown Venipuncture / Unknown 12/15/2022 12:06 EDT 12/15/2022 12:25 EDT Alina Santacruz MD CHEMISTRY & BLOOD GA S ORDERABLES [facility] [address] [place] [address] documented in this encounter Visit Diagnoses Diagnosis Hyperkalemia Hyperpotassemia documented in this encounter Care Teams Law Office Receptionist Relationship Specialty Start Date End Date Alina Santacruz MD [address] [place] [phone] PCP - General 08/17/21 documented as of this encounter
--- OUTSIDE RECORDS SUMMARY | 2023-12-31 16:46 | XMS_ITS | Encounter Summary ---
Author Organization [facility] Address [address] [place] [address] Care Team Providers Care Board Certified Music Therapist Name Role Phone Alina Santacruz MD Primary Care Provider [phone] Encounter Details Date Type Department Care Team (Latest Contact Info) Description 11/24/2022 Transcribe Orders [facility] Alina Olivares MD [address] [phone] Hyperkalemia (Primary Dx) Social History Tobacco Use Types [...] Info) Description 01/07/2024 12:45 EDT Phlebotomy Only [facility] Cancer Center Hematology & Oncology - [address] [phone] Blood Doctor, [facility] Hem Onc 01/07/2024 13:30 EDT Office Visit [facility] Cancer Center Hematology & Oncology - [address] [phone] Maria Alejandra Jung MD 111 [facility], [facility], Level 2 [place] [address] 01/16/2024 14:30 EDT Appointment [facility] Breast Imaging Mammography - [address] [phone] documented as of this encounter Results * (ABNORMAL) BASIC METABOLIC PANEL (BMP) (12/15/2022 12:06 EDT) Sodium 133(L) 136 - 145 mmol/L 12/15/2022 12:58 [facility] Potassium 5.9(H) 3.5 - 5.0 mmol/L 12/15/2022 12:58 [facility] Chloride 96 96 - 110 mmol/L 12/15/2022 12:58 [facility] CO2 Total 27 22 - 32 mmol/L 12/15/2022 12:58 [facility] Anion Gap 10 5 - 14 mmol/L 12/15/2022 12:58 [facility] Glucose 89 70 - 99 mg/dl 12/15/2022 12:58 [facility] Calcium 9.7 8.5 - 10.5 mg/dL 12/15/2022 12:58 [facility] BUN 19 10 - 26 mg/dL 12/15/2022 12:58 [facility] Creatinine 1.05(H) 0.52 - 1.04 mg/dL 12/15/2022 12:58 [facility] eGFR 59(L) >60 mL/min/1.73 m2 12/15/2022 12:58 [facility] Blood VENOUS BLOOD / Unknown Venipuncture / Unknown 12/15/2022 12:06 EDT 12/15/2022 12:25 EDT Alina Santacruz MD CHEMISTRY & BLOOD GA S ORDERABLES [facility] [address] [place] [address] documented in this encounter Visit Diagnoses Diagnosis Hyperkalemia- Primary Hyperpotassemia documented in this encounter Care Teams Board Certified Music Therapist Relationship Specialty Start Date End Date Alina Santacruz MD [address] [place] [phone] PCP - General 08/17/21 documented as of this encounter
--- OUTSIDE RECORDS SUMMARY | 2023-12-31 16:46 | XMS_ITS | Encounter Summary ---
Author Organization [facility] Address [address] [place] [address] Care Team Providers Care Inside Tester Name Role Phone Alina Santacruz MD Primary Care Provider [phone] Reason for Visit * Reason Comments Follow-up * Consult (Routine) - Authorization Not Required Specialty Diagnoses / Procedures Referred By Radha casey Referred To Contact [facility] Ep2 Hem/Onc [address] [place] [address] [facility] Ep2 Hem/Onc [address] [place] [id number] Referral ID Status Reason Start Date Expiration Date Visits Requested Visits Authorized [id number] Authorization Not Required 1 1 Encounter Details Date Type Department Care Team ([facility] Contact Info) Description 09/05/2022 14:00 EDT Office Visit [facility] Cancer Center Hematology & Oncology - [address] [address] Iman Hodge, [facility] 111 [facility] 2 [place] [phone] Adjustment reaction with anxiety and depression (Primary [...] Info) Description 01/07/2024 12:45 EDT Phlebotomy Only [facility] Hematology & Oncology [address] [phone] Blood Doctor, [facility] Hem Onc 01/07/2024 13:30 EDT Office Visit [facility] Hematology & Oncology [address] [phone] Maria Alejandra Jung MD [address] [place] [address], Level 2 [place] [phone] 01/16/2024 14:30 EDT Appointment [facility] Breast Imaging Mammography - [address] [phone] documented as of this encounter Visit Diagnoses Diagnosis Adjustment reaction with anxiety and depression- Primary Adjustment disorder with mixed anxiety and depressed mood documented in this encounter Care Teams Inside Tester Relationship Specialty Start Date End Date Alina Santacruz MD [address] [place] [phone] PCP - General 08/17/21 documented as of this encounter
--- OUTSIDE RECORDS SUMMARY | 2023-12-31 16:46 | XMS_ITS | Encounter Summary ---
Author Organization [facility] Address [address] [place] [address] Care Team Providers Care Senior Media Buyer Name Role Phone Alina Santacruz MD Primary Care Provider [phone] Encounter Details Date Type Department Care Team (Late Contact Info) Description 07/26/2022 Transcribe Orders OUTSIDE PROVIDER Alina Santacruz MD [address] [phone] Hypertension, unspecified type (Primary Dx) Social History Tobacco Use Types [...] Info) Description 01/07/2024 12:45 EDT Phlebotomy Only [facility] Hematology & Oncology - [address] [id number] Blood Doctor, [facility] Hem Onc 01/07/2024 13:30 EDT Office Visit [facility] Hematology & Oncology [address] [id number] Maria Alejandra Jung MD 111 [facility], [facility], Level [address] [place] [phone] 01/16/2024 14:30 EDT Appointment [facility] Breast Imaging Mammography - [facility] [address] [place] [address] documented as of this encounter Results * (ABNORMAL) BASIC METABOLIC PANEL (BMP) (08/03/2022 9:21 EST) Sodium 141 136 - 145 mmol/L 08/03/2022 10:23 [facility] Potassium 5.6(H) 3.5 - 5.0 mmol/L 08/03/2022 10:23 [facility] Chloride 102 96 - 110 mmol/L 08/03/2022 10:23 [facility] CO2 Total 30 22 - 32 mmol/L 08/03/2022 10:23 [facility] Anion Gap 9 5 - 14 08/03/2022 10:23 [facility] Glucose 80 70 - 100 mg/dL 08/03/2022 10:23 [facility] Calcium 9.4 8.5 - 10.5 mg/dL 08/03/2022 10:23 [facility] BUN 18 10 - 26 mg/dL 08/03/2022 10:23 [facility] Creatinine 0.97 0.52 - 1.04 mg/dL 08/03/2022 10:23 [facility] eGFR 65 >60 mL/min/1.73 m2 08/03/2022 10:23 [facility] Blood VENOUS BLOOD / Unknown Venipuncture / Unknown 08/03/2022 9:21 EST 08/03/2022 9:55 EST Alina Santacruz MD CHEMISTRY & BLOOD GA S ORDERABLES [facility] [address] [place] [address] documented in this encounter Visit Diagnoses Diagnosis Hypertension, unspecified type- Primary documented in this encounter Care Teams Senior Media Buyer Relationship Specialty Start Date End Date Alina Santacruz MD [address] [place] [phone] PCP - General 08/17/21 documented as of this encounter
--- OUTSIDE RECORDS SUMMARY | 2023-12-31 16:46 | XMS_ITS | Encounter Summary ---
Author Organization [facility] Address [address] [place] [address] Care Team Providers Care Society Reporter Name Role Phone Alina Santacruz MD Primary Care Provider [phone] Encounter Details Date Type Department Care Team (Late st Contact Info) Description 11/15/2022 23:59 EDT Anesthesia Event [facility] Endoscopy - Main [address] [address] Jovani Morel AA 111 [facility] [address] [place] [address] Anesthesia Record Procedure Summary Procedure Name Responsible Anesthesiologist Anesthesia Start Time Anesthesia Stop Time COLONOSCOPY Events No events on file. Meds * Agents No agents on file. * Blood No blood administrations on file. Lines, Drains, and Airways No LDAs on file. documented in this encounter Social History Tobacco Use Types Packs/Day Years [...] No 11/15/2022 documented as of this encounter OR Notes * Anesthesia Preprocedure Evaluation - Adriel SANDHYA Hahn - 11/15/2022 0953 EDT Images from the original note were not included. Anesthesia Preprocedure Evaluation Patient Medical History, including Anesthesia History reviewed. Chart and Nursing Notes reviewed, including NPO status and Medication History. Additional ROS/History Findings: ED Notes - 10/30/22 67-year-old female with history of hepatitis C, cirrhosis morphology, chronic pain and fibromyalgiapresents with bright red blood per rectum, concerning for diverticular bleeding, less likely upper GI bleed or variceal etiology. She does note some right sided abdominal pain, as well as pain in both of her flanks, but she thinks that her left sided pain is related to her sciatica. She reports that she has been blacking out when she stands up from the couch, and that these episodes having been going on for about a year. The patient says that she has not been evaluated for this. She reports that she has had several falls due to this. TTE - 03/06/22 ??? Left??Ventricle: Left ventricular systolic function was low normal with an ejection fraction of50-55%. Although no diagnostic regional wall motion abnormality was identified, this possibility cannot be completely excluded on the basis of this study. ??? Right??Ventricle: Right ventricular systolic function was normal. ??? Mitral??Valve: There was mild to moderate mitral regurgitation. ECG - 12/25/21 Lab Results Component Value Date WBC 7.57 10/30/2022 HGB 10.5 (L) 10/30/2022 HCT 30.2 (L) 10/30/2022 MCV 92 10/30/2022 PLT 206 10/30/2022 Lab Results Component Value Date NA 134 (L) 10/30/2022 K 5.0 10/30/2022 CL 101 10/30/2022 CO2 26 10/30/2022 Lab Results Component Value Date INR 1.0 10/30/2022 PROTIME 11.6 10/30/2022 Lab Results Component Value Date BUN 24 10/30/2022 Lab Results Component Value Date CREATININE 0.99 10/30/2022 No Known Allergies Review of Systems Respiratory: Negative for shortness of breath. Smoker - 6 cigarettes a day, does not feel out of breath Cardiovascular: Occasional chest pain Believes might have a leaky aortic valve Limited physical activity d/t pain, sits most of the day. Needs a walker for long distances, no stairs. Gastrointestinal: Positive for abdominal pain and heartburn. Negative for nausea. Non-compliant with reflux meds Musculoskeletal: Positive for back pain and joint pain. Endo/Heme/Allergies: Does not bruise/bleed easily. Psychiatric/Behavioral: The patient is nervous/anxious. No past medical history on file. Relevant Problems No relevant active problems Physical Exam Airway Mallampati: II TM distance: >3 FB Neck ROM: limited Cardiovascular Rate: normal Dental Comments: Upper plate that is difficult to remove Pulmonary Breath sounds clear to auscultation Abdominal Other findings: Currently experiencing a lot of pain. Pending decision to proceed with colonoscopy,patient believes she will be able to lay on her left side. Anesthesia Plan ASA 3 Anesthesia Type - MAC (GA Back up) Anesthesia plan and risks discussed. Informed consent obtained from patient. Specific risks discussed were infection, nausea, stroke and myocardial infarction. Code status discussed? No The preoperative history and physical which was performed within 30 days of this procedure, has been reviewed and the clinically appropriate elements of the physical examination have been repeated. There are no changes to the documented history and physical or, if so, such changes are documented inthis note PAT Note Notes from 10/16/22 through 11/15/22 No notes of this type exist for this encounter. documented in this encounter Plan of Treatment Upcoming Encounters Date Type Department Care Team (Late st Contact Info) Description 01/07/2024 12:45 EDT Phlebotomy Only [facility] Hematology & Oncology [address] [address] Blood Doctor, [facility] Hem Onc 01/07/2024 13:30 EDT Office Visit [facility] Hematology & Oncology [address] [address] Maria Alejandra Jung MD [address] [place] [address] [address] [place] [phone] 01/16/2024 14:30 EDT [facility]ointment [facility] Breast Imaging Mammography - [address] [address] documented as of this encounter Visit Diagnoses Not on filedocumented in this encounter Care Teams Society Reporter Relationship Specialty Start Date End Date Alina Santacruz MD [address] [place] [phone] PCP - General 08/17/21 documented as of this encounter
--- OUTSIDE RECORDS SUMMARY | 2023-12-31 16:46 | XMS_ITS | Encounter Summary ---
Author Organization [facility] Address [address] [place] [address] Care Team Providers Care Director Of Player Personnel Name Role Phone Alina Santacruz MD Primary Care Provider [phone] Encounter Details Date Type Department Care Team (Latest Contact Info) Description 08/09/2022 Transcribe Orders OUTSIDE PROVIDER Alina Santacruz MD [address] [phone] Hyperkalemia (Primary Dx) Social History [...] Info) Description 01/07/2024 12:45 EDT Phlebotomy Only [facility] Hematology & Oncology - [address] [phone] Blood Doctor, [facility] Hem Onc 01/07/2024 13:30 EDT Office Visit [facility] Hematology & Oncology - [address] [phone] Maria Alejandra Jung MD 111 [facility], [facility], [address] [place] [phone] 01/16/2024 14:30 EDT Appointment [facility] Breast Imaging Mammography - [address] [address] Scheduled Orders Name Type Priority Associated Diagnoses Orde r Schedule BASIC METABOLIC PANEL (BMP) Lab Routine Hyperkalemia Expected: 08/09/2022 (Approximate), Expires: 11/09/2022 documented as of this encounter Visit Diagnoses Diagnosis Hyperkalemia- Primary Hyperpotassemia documented in this encounter Care Teams Director Of Player Personnel Relationship Specialty Start Date End Date Alina Santacruz MD [address] [place] [phone] PCP - General 08/17/21 documented as of this encounter
--- OUTSIDE RECORDS SUMMARY | 2023-12-31 16:46 | XMS_ITS | Encounter Summary ---
Author Organization [facility] Address [address] [place] [address] Care Team Providers Care Tinning Equipment Tender Name Role Phone Alina Santacruz MD Primary Care Provider [phone] Reason for Visit * Reason Comments Abdominal Pain BIBEMS from home for evaluation of severe RLQ/flank pain that started last night. Pt endorses hx of issues with bowel, including bloody stools, chronic flank pain, had colonoscopy scheduled for today. Pt did colonoscopy prep yesterday, last BM clear liquid. Denies urinary changes, no fever/chills. Took prescription of 30mg morphine at 0300 with minimal relief. Encounter Details Date Type Department Care Team (Late st Contact Info) Description 11/15/2022 9:22 EDT - 11/15/2022 14:21 EDT Emergency [facility] Emergency Department - Main [address] [address] James Byrnes MD [address] [place] [address], [address] [place] [address] Generalized abdominal pain (Primary Dx) Discharge Disposition: Home or [...] 9:33 EDT documented as of this encounter Last Filed Vital Signs Vital Sign Reading Time Taken Comments Blood Pressure 146/88 11/15/2022 1415 EDT Pulse 72 11/15/2022 1200 EDT Temperature 36.4 ??C (97.6 ??F) 11/15/2022 0932 EDT Respiratory Rate 19 11/15/2022 1400 EDT Oxygen Saturation 97% 11/15/2022 1400 EDT Inhaled Oxygen Concentration - - Weight 59 kg (130 lb) 11/15/2022 0932 EDT Height 162.6 cm (5' 4) 11/15/2022 0932 EDT Body Mass Index 22.31 11/15/2022 0932 EDT documented in this encounter Functional Status Functional Status Response Date of Assess ment Are you deaf or do you have serious difficulty h earing? No 11/15/2022 documented as of this encounter Discharge Instructions * Discharge Instructions* James Byrnes MD - 11/15/2022 13:52 EDT You were seen today for abdominal pain. I am unsure the cause of your abdominal pain at this time. Please follow-up with your primary care doctor. I would also recommend you reschedule your outpatient colonoscopy. Please return for any new or worsening symptoms. documented in this encounter Medications at Time [...] Means Destination Comment s Home or Self Halfway documented in this encounter ED Notes * Sheeba Templeton RN - 11/15/2022 1417 EDT Pt ordered for discharge by MD Byrnes. Reviewed AVS with patient and discussed s/s warranting a return to the ED. Pt agreeable with discharge and denies further questions. Vitally stable. IV removed without complications. Pt has tolerable pain level at this time. assisted in getting dressed and to wheelchair. * James Byrnes MD - 11/15/2022 1012 EDT This patient received an evaluation and medical screening exam for emergent medical conditions at the [facility] on 11/15/2022. This documentation is recorded by Rhonda Stafford acting as Scribe under the direction and presence of James Byrnes MD. James Byrnes MD: I personally performed the services recorded by the scribe in my presence. I confirm the scribe's documentation has been reviewed by me to accurately and completely record my work, treatment, procedures, and medical decision making. HPI Danielle Soto is a 67 y.o. female with a history significant for hepatitis C, cirrhosis morphology, chronic pain and fibromyalgia who was recently in the ED on 10/30 for hematochezia who presents to the ED via EMS for worsened abdominal pain. The patient is endorsing right lower quadrant pain that radiates to her back and is described as worse in severity compared to last ED visit. Since her lastED visit, she denies noticing any hematochezia, tarry stools, nausea, vomiting, urinary changes, fevers, or chills. The patient is an active smoker. The patient took 30 mg of prescription morphine [id number] which gave her minimal relief. Of note, the patient has a colonoscopy scheduled for 11 today, for which she completed the colonoscopy prep and endorsed clear bowel movements. Patient believes that the bowel prep is what exacerbated her symptoms today. History was provided by: the patient, medical records. Patient's pertinent PMH, FH, SH were reviewed and updated PRN. ROS A focused review of systems was performed. Pertinent positives and negatives as noted in HPI. Physical Exam Vital Signs Vitals Reassessment?: Yes Temp: 36.4 ??C (97.6 ??F) Temp src: Oral Pulse: 72 Heart Rate: 68 BPM Resp: 10 SpO2: 97 % Pulse From Oximetry: 68 BPM BP: (!) 143/72 BP MAP: 91 mm Hg BP Device: BP Machine BP Patient Position: Semi fowlers O2 Device: None (Room air) Nursing notes an vital signs were reviewed. Constitutional: Well appearing, in no acute distress HEENT: Clear conjunctivae Mouth: Moist oral mucosa without apparent lesions Neck: Full ROM Heart: Warm and well perfused, regular rate and rhythm Lungs: No increased work of breathing, no respiratory distress Abdomen: Diffuse minimal tenderness, no rebound, no guarding Skin: No overt rashes or lesions on exposed skin Extremities: Moving spontaneously, warm Neuro: CN grossly intact, normal speech, gait wnl, strength and sensation to light touch wnl Medical Decision Making/ED Course Danielle Soto is a 67 y.o. female with history significant for abdominal pain who presents to the ED for abdominal pain. Patient has a history of abdominal pain and believes that her bowel prep for colonoscopy today is what exacerbated the symptoms today. Her abdominal exam is largely benign. Vital signs stable. Work-up today was reassuring. Labs were benign. No leukocytosis. UA not consistent with infection. Lactic acid within normal limits. Patient was originally mildly hyperkalemic however this resolved after fluids. CT scan with no acute pathology. Patient was able to tolerate p.o. and requested discharge home. Recommended primary care follow-up and for her to reschedule her colonoscopy return precautions were discussed and patient was discharged home. Procedures Procedures Clinical Impression Final diagnoses: Generalized abdominal pain Disposition Condition at departure from the Emergency Department: Improved Disposition decisions were made weighing risks and benefits of hospitalization vs. outpatient treatment, the risk for further decompensation, and the patient's wishes. Discharged documented in this encounter Plan of Treatment Upcoming Encounters Date Type Department Care Team (Late st Contact Info) Description 01/07/2024 12:45 EDT Phlebotomy Only [facility] Hematology & Oncology - [address] [phone] Blood Doctor, [facility] Hem Onc 01/07/2024 13:30 EDT Office Visit [facility] Hematology & Oncology - [address] [phone] Maria Alejandra Jung MD [address] [place] [address], [address] [place] [address] 01/16/2024 14:30 EDT Appointment [facility] Breast Imaging Mammography - [address] [phone] documented as of this encounter Procedures Procedure Name Priority Date/Time Associated Diagnosis Comments POCT URINE DIPSTICK, CLINITEK STAT 11/15/2022 12:49 EDT POCT CSN BARCODE URINE DIPSTICK STAT 11/15/2022 12:47 EDT POCT URINE CLINITEK (DIPSTICK) - DOES NOT REFLEX STAT 11/15/2022 12:47 EDT BASIC METABOLIC PANEL (BMP) STAT 11/15/2022 12:[address] ABDOMEN PELVIS W CONTRAST STAT 11/15/2022 11:26 EDT LACTIC ACID WITH REFLEX - USE FOR INITIAL SEPSIS EVALUATION STAT 11/15/2022 10:34 EDT HOLD SST Routine 11/15/2022 9:44 EDT HOLD LAVENDER TOP Routine 11/15/2022 9:4 4 EDT HOLD GREEN TOP Routine 11/15/2022 9:44 EDT HOLD BLUE TOP Routine 11/15/2022 9:44 EDT COMPLETE BLOOD COUNT AND DIFFERENTIAL STAT Add-on 11/15/2022 9:44 EDT LIPASE STAT Add-on 11/15/2022 9:44 EDT COMPREHENSIVE METABOLIC PANEL (CMP) STAT Add-on 11/15/2022 9:44 EDT documented in this encounter Results * (ABNORMAL) POCT URINE DIPSTICK, CLINITEK (11/15/2022 12:49 EDT) Color, UA Yellow Yellow 11/15/2022 12:50 EDT [facility] Clarity, UA Clear Clear 11/15/2022 12:50 EDT [facility] Glucose, UA Negative Negative mg/dL 11/15/2022 12:50 EDT [facility] Bilirubin, UA Negative Negative 11/15/2022 12:50 EDT [facility] Ketones, UA Negative Negative 11/15/2022 12:50 T [facility] Specific [place], Urine 1.010 1.001 - 1.035 11/15/2022 12:50 [facility] Blood, UA Trace(A) Negative 11/15/2022 12:50 [facility] pH, UA 5.5 4.6 - 8.0 11/15/2022 12:50 [facility] Protein, UA Negative Negative 11/15/2022 12:50 [facility] Urobilinogen, UA 0.2 0.2 - 1.0 mg/dL 11/15/2022 12:50 [facility] Nitrite, UA Negative Negative 11/15/2022 12:50 [facility] Leuk Esterase Negative Negative 11/15/2022 12:50 [facility] HN LAB COMMENT (CLINITEK, UR) Test performed at Emergency Department 11/15/2022 12:50 EDT [facility] Urine URINE SPECIMEN COLLECTION, CLEAN CATCH / Unknown 11/15/2022 12:49 EDT 11/15/2022 12:50 EDT James Byrnes MD POINT OF CARE DEVIN T ORDERABLES Performing Organization Address [facility] Co de Phone Number [facility] [address] [place] [id number] * POCT CSN BARCODE URINE DIPSTICK (11/15/2022 12:47 EDT) Urine URINE SPECIMEN COLLECTION, CLEAN CATCH / Unknown Urine Collect / Unknown 11/15/2022 12:47 EDT 11/15/2022 12:47 EDT James Byrnes MD LAB INFO SERVICE AND SUPPORT & PHONE RESULT Performing Organization Address [facility]/ZIP Co de Phone Number [facility] [address] [place] [address] * (ABNORMAL) BASIC METABOLIC PANEL (BMP) (11/15/2022 12:42 EDT) Sodium 135(L) 136 - 145 mmol/L 11/15/2022 13:55 [facility] Potassium 4.7 3.5 - 5.0 mmol/L 11/15/2022 13:55 [facility] Comment:Slight hemolysis dereck ntified, interpret with caution as hemolysis will elevate potassium result. Chloride 105 96 - 110 mmol/L 11/15/2022 13:55 [facility] CO2 Total 19(L) 22 - 32 mmol/L 11/15/2022 13:55 [facility] Anion Gap 11 5 - 14 mmol/L 11/15/2022 13:55 [facility] Glucose 70 70 - 100 mg/dl 11/15/2022 13:55 [facility] Calcium 7.7(L) 8.5 - 10.5 mg/dL 11/15/2022 13:55 [facility] Comment:Sample retested, res ult confirmed BUN 15 10 - 26 mg/dL 11/15/2022 13:55 [facility] Comment: Slight hemolysis identified, interpret with caution as results may be affected due to hemolysis. Creatinine 0.79 0.52 - 1.04 mg/dL 11/15/2022 13:55 [facility] eGFR 83 >60 mL/min/1.7 3m2 11/15/2022 13:55 [facility] Blood VENOUS BLOOD / Unknown Venipuncture / Unknown 11/15/2022 12:42 EDT 11/15/2022 12:51 EDT James Byrnes MD CHEMISTRY & BLOOD GAS ORDERABLES [facility] [address] [place] [address] * CT ABDOMEN PELVIS W CONTRAST (11/15/2022 11:26 EDT) Anatomical Region Laterality Modality Body, Abdomen, Pelvis, Abdomen and Pelvis Computed Tomography 11/15/2022 11:5 7 EDT Impressions 11/15/2022 11:57 EDT 1. ??No acute pathology in the abdomen or pelvis. Previously seen colitis involving the descending and sigmoid colon has resolved. 2. ??Atherosclerosis. Visceral arteries patent. 3. ??Incidental renal cysts. 4. ??Prior hysterectomy and appendectomy I have personally reviewed the images and the above interpretation and agree with the findings. Narrative 11/15/2022 11:[address] ABDOMEN PELVIS W CONTRAST ??11/15/2022 10:40 AM Signs and Symptoms/Comments: ?? R sided abdominal pain; LLQ abdominal pain, diverticulitis suspected Technique: CT of the abdomen and pelvis was performed following the administration intravenous contrast. Comparison: CT abdomen and pelvis on 10/30/2022 Findings: Lower chest: Bibasilar dependent atelectasis. Hepatobiliary: No suspicious hepatic lesions. No biliary ductal dilatation. The gallbladder is unremarkable. Spleen, pancreas, adrenal glands: Fatty infiltrations of the pancreas. Spleen, pancreas and adrenal glands are otherwise unremarkable. Kidneys, ureters, bladder: Both kidneys enhance symmetrically. Bilateral renal cysts. Subcentimeter hypodensities in the right kidney too small to accurately characterize, however likely a small cyst. No suspicious renal lesions. Unchanged bilateral renal scarring. No hydroureteronephrosis. Uterus, ovaries: Prior hysterectomy. No adnexal mass. Bowel: No bowel obstruction or acute inflammatory changes. No significant diverticular disease. Prior appendectomy per EMR. Peritoneal cavity: No free fluid or free air. Lymphovascular: The abdominal aorta is normal in caliber. Mixed calcified and soft plaques in the aorta and branches. No lymphadenopathy. Abdominal wall: No bowel containing hernia. Musculoskeletal: Degenerative changes are present in the lumbar spine. No acute fracture or concerning osseous lesions. International Marketing Coordinator: No additional findings. Procedure Note Rangel Edwards MD - 11/15/2022 CT ABDOMEN PELVIS W CONTRAST 11/15/2022 10:40 AM Signs and Symptoms/Comments: R sided abdominal pain; LLQ abdominal pain, diverticulitis suspected Technique: CT of the abdomen and pelvis was performed following the administrationintravenous contrast. Comparison: CT abdomen and pelvis on 10/30/2022 Findings: Lower chest: Bibasilar dependent atelectasis. Hepatobiliary: No suspicious hepatic lesions. No biliary ductaldilatation. The gallbladder is unremarkable. Spleen, pancreas, adrenal glands: Fatty infiltrations of the pancreas.Spleen, pancreas and adrenal glands are otherwise unremarkable. Kidneys, ureters, bladder: Both kidneys enhance symmetrically. Bilateralrenal cysts. Subcentimeter hypodensities in the right kidney too small toaccurately characterize, however likely a small cyst. No suspicious renallesions. Unchanged bilateral renal scarring. No hydroureteronephrosis. Uterus, ovaries: Prior hysterectomy. No adnexal mass. Bowel: No bowel obstruction or acute inflammatory changes. No significantdiverticular disease. Prior appendectomy per EMR. Peritoneal cavity: No free fluid or free air. Lymphovascular: The abdominal aorta is normal in caliber. Mixed calcifiedand soft plaques in the aorta and branches. No lymphadenopathy. Abdominal wall: No bowel containing hernia. Musculoskeletal: Degenerative changes are present in the lumbar spine. Noacute fracture or concerning osseous lesions. International Marketing Coordinator: No additional findings. IMPRESSION 1. No acute pathology in the abdomen or pelvis. Previously seen colitisinvolving the descending and sigmoid colon has resolved. 2. Atherosclerosis. Visceral arteries patent. 3. Incidental renal cysts. 4. Prior hysterectomy and appendectomy I have personally reviewed the images and the above interpretation andagree with the findings. James Byrnes MD IMG CT ORDERABLES * LACTIC ACID WITH REFLEX - USE FOR INITIAL SEPSIS EVALUATION (11/15/2022 10:34 EDT) Lactic Acid 0.9 <=2.0 mmol/L 11/15/2022 11:02 EDT [facility] Blood VENOUS BLOOD / Unknown Venipuncture / Unknown 11/15/2022 10:34 EDT 11/15/2022 10:42 EDT James Byrnes MD CHEMISTRY & BLOOD GAS ORDERABLES [facility] [address] [place] [address] * (ABNORMAL) COMPLETE BLOOD COUNT AND DIFFERENTIAL (11/15/2022 9:44 EDT) WBC 6.10 4.00 - 12.40 K/cmm 11/15/2022 10:22 [facility] RBC 3.68(L) 3.86 - 5.04 M/cmm 11/15/2022 10:22 [facility] Hemoglobin 11.7 11.6 - 15.2 g/dL 11/15/2022 10:22 [facility] HCT 32.5(L) 34.9 - 44.4 % 11/15/2022 10:22 [facility] MCV 88 81 - 98 fL 11/15/2022 10:22 [facility] MCH 31.8 26.7 - 33.3 pg 11/15/2022 10:22 [facility] MCHC 36.0(H) 32.1 - 35.9 g/dL 11/15/2022 10:22 [facility] RDW-CV 13.2 <14.7 % 11/15/2022 10:22 [facility] RDW-SD 42.6 <50.4 fl 11/15/2022 10:22 [facility] PLT 201 141 - 377 K/cmm 11/15/2022 10:22 [facility] MPV 10.8 9.5 - 12.7 fL 11/15/2022 10:22 [facility] % Neutrophils 62.0 % 11/15/2022 10:22 [facility] % Lymphocytes 27.9 % 11/15/2022 10:22 [facility] % Monocytes 7.2 % 11/15/2022 10:22 [facility] % Eosinophils 2.0 % 11/15/2022 10:22 [facility] % Basophils 0.7 % 11/15/2022 10:22 [facility] % Immature Grans 0.2 % 11/16/19 10:22 [facility] Absolute Neutrophils 3.79 2.20 - 8.85 K/cmm 11/15/2022 10:22 [facility] Absolute Lymphocytes 1.70 1.09 - 3.30 K/cmm 11/15/2022 10:22 EDT [facility] Absolute Monocytes 0.44 0.10 - 0.80 K/cmm 11/15/2022 10:22 EDT [facility] Absolute Eosinophils 0.12 0.03 - 0.61 K/cmm 11/15/2022 10:22 EDT [facility] ABS Basophils 0.04 0.01 - 0.11 K/cm 11/15/2022 10:22 EDT [facility] Absolute Immature Grans 0.01 0.00 - 0.06 K/cm 11/15/2022 10:22 EDT [facility] Type of Differential: Auto 11/15/2022 10:22 EDT [facility] Blood VENOUS BLOOD / Unknown Venipuncture / Unknown 11/15/2022 9:44 EDT 11/15/2022 9:52 EDT James Byrnes MD PACKAGES & DNA AK OBE ORDERABLES Performing Organization Address City/[facility]/ZIP Co de Phone Number [facility] [address] [place] [address] * LIPASE (11/15/2022 9:44 EDT) Pathologist [facility] Lipase 22 <251 U/L 11/15/2022 10:32 EDT [facility] Blood VENOUS BLOOD / Unknown Venipuncture / Unknown 11/15/2022 9:44 EDT 11/15/2022 9:52 EDT James Byrnes MD CHEMISTRY & BLOOD GAS ORDERABLES Performing Organization Address [facility] Co de Phone Number [facility] [address] [place] [address] * (ABNORMAL) COMPREHENSIVE METABOLIC PANEL (CMP) (11/15/2022 9:44 EDT) Sodium 133(L) 136 - 145 mmol/L 11/15/2022 10:32 EDT [facility] Potassium 5.6(H) 3.5 - 5.0 mmol/L 11/15/2022 10:32 [facility] Chloride 100 96 - 110 mmol/L 11/15/2022 10:32 [facility] CO2 Total 22 22 - 32 mmol/L 11/15/2022 10:32 [facility] Glucose 100 70 - 100 mg/dl 11/15/2022 10:32 [facility] BUN 18 10 - 26 mg/dL 11/15/2022 10:32 [facility] Creatinine 1.00 0.52 - 1.04 mg/dL 11/15/2022 10:32 [facility] eGFR 63 >60 mL/min/1.7 3m2 11/15/2022 10:32 [facility] Total Protein 7.3 6.3 - 8.2 g/dL 11/15/2022 10:32 [facility] Albumin 4.4 3.4 - 4.9 g/dL 11/15/2022 10:32 [facility] Alkaline Phosphatase 67 38 - 126 U/L 11/15/2022 10:32 [facility] AST 40 15 - 46 U/L 11/15/2022 10:32 [facility] ALT 30 <35 U/L 11/15/2022 10:32 [facility] Bilirubin, Total 0.6 <1.4 mg/dL 11/16/19 10:32 [facility] Calcium 9.6 8.5 - 10.5 mg/dL 11/15/2022 10:32 [facility] Albumin/Globulin Ratio 1.5 1.0 - 2.5 11/15/2022 10:32 [facility] Anion Gap 11 5 - 14 mmol/L 11/15/2022 10:32 [facility] Blood VENOUS BLOOD / Unknown Venipuncture / Unknown 11/15/2022 9:44 EDT 11/15/2022 9:52 EDT James Byrnes MD CHEMISTRY & BLOOD GAS ORDERABLES [facility] [address] [place] [address] * HOLD BLUE TOP (11/15/2022 9:44 EDT) Hold Hold 11/15/2022 11:01 EDT [facility] Blood VENOUS BLOOD / Unknown Venipuncture / Unknown 11/15/2022 9:44 EDT 11/15/2022 9:52 EDT James Byrnes MD LAB INFO SERVICE AND SUPPORT & PHONE RESULT Performing Organization Address City/[facility]/ZIP Co de Phone Number [facility] [address] [place] [address] * HOLD GREEN TOP (11/15/2022 9:44 EDT) Hold Hold 11/15/2022 11:01 EDT [facility] Blood VENOUS BLOOD / Unknown Venipuncture / Unknown 11/15/2022 9:44 EDT 11/15/2022 9:52 EDT James Byrnes MD LAB INFO SERVICE AND SUPPORT & PHONE RESULT Performing Organization Address City/[facility]/ZIP Co de Phone Number [facility] [address] [place] [address] * HOLD LAVENDER TOP (11/15/2022 9:44 EDT) Hold Hold 11/15/2022 11:01 EDT [facility] Blood VENOUS BLOOD / Unknown Venipuncture / Unknown 11/15/2022 9:44 EDT 11/15/2022 9:52 EDT James Byrnes MD LAB INFO SERVICE AND SUPPORT & PHONE RESULT [facility] [address] [place] [address] * HOLD SST (11/15/2022 9:44 EDT) Hold Hold 11/15/2022 11:01 EDT [facility] Blood VENOUS BLOOD / Unknown Venipuncture / Unknown 11/15/2022 9:44 EDT 11/15/2022 9:52 EDT James Byrnes MD LAB INFO SERVICE AND SUPPORT & PHONE RESULT [facility] [address] [place] [address] documented in this encounter Visit Diagnoses Diagnosis Generalized abdominal pain- Primary Abdominal pain, generalized documented in this encounter Administered Medications Inactive Administered Medications - up to 3 most recent administrations Medication Order MAR Action Action Date Dose Rate Site iohexoL (OMNIPAQUE 350) solution 100 mL 100 mL, intravenous, Once in imaging, 1 dose, Starting on Sun11/15/22 at 1104, Until Sun11/15/22 at 1126, Routine, Imaging Protocol Orders Given 11/15/2022 11:26 EDT 95 mL morphine injection 4 mg 4 mg, intravenous, NOW X1, 1 dose, On Sun11/15/22 at 1015, STAT Given 11/15/2022 10:35 EDT 4 mg morphine injection 4 mg 4 mg, intravenous, NOW X1, 1 dose, On Sun11/15/22 at 1145, STAT Given 11/15/2022 11:45 EDT 4 mg sodium chloride 0.9 % BOLUS 1,000 mL 1,000 mL, intravenous, NOW X1, 1 dose, On Sun11/15/22 at 1045, STAT New Bag 11/15/2022 10:38 EDT 1,000 mL documented in this encounter Active and Recently Administered Medications Times are shown in EDT. Scheduled Medication Order 11/13/2022 11/14/2022 11/15/2022 iohexoL (OMNIPAQUE 350) solution 100 mL (COMPLETED) 100 mL, intravenous, Once in imaging, 1 dose, Starting on Sun11/15/22 at 1104, Until Sun11/15/22 at 1126, Routine, Imaging Protocol Orders 1126 (Given - Provid er: Annita Hastings) morphine injection 4 mg (COMPLETED) 4 mg, intravenous, NOW X1, 1 dose, On Sun11/15/22 at 1015, STAT 1035 (Given - Provid er: Annita Cam RN) morphine injection 4 mg (COMPLETED) 4 mg, intravenous, NOW X1, 1 dose, On Sun11/15/22 at 1145, STAT 1145 (Given - Provid er: Dorothy Benoit, EMMA) sodium chloride 0.9 % BOLUS 1,000 mL (COMPLETED) 1,000 mL, intravenous, NOW X1, 1 dose, On Sun11/15/22 at 1045, STAT 1038 (New Bag - Prov ider: Annita Cam RN)1334 (IV Stopped - Provider: Dorothy Benoit, EMMA) documented in this encounter Orders Medications Ordered That Atif ht Not Have Been Administered Count Last Ordered Date First Ordered Date lactated ringers BOLUS 1,000 mL 1 3 documented in this encounter Care Teams Tinning Equipment Tender Relationship Specialty Start Date End Date Alina Santacruz MD [address] [place] [phone] PCP - General 08/17/21 documented as of this encounter
--- OUTSIDE RECORDS SUMMARY | 2023-12-31 16:46 | XMS_ITS | Encounter Summary ---
Author Organization [facility] Address [address] [place] [address] Care Team Providers Care Contact Acid Plant Operator Helper Name Role Phone Alina Santacruz MD Primary Care Provider [phone] Reason for Visit * Reason Comments New Patient Visit * Consult (Routine) - Authorization Not Required Specialty Diagnoses / Procedures Referred By Radha casey Referred To Contact Hematology and Oncology Diagnoses Free monoclonal light chain Alina Santacruz MD [address] [phone] [facility] Ep2 Hem/Onc [address] [place] [address] Referral ID Status Reason Start Date Expiration Date Visits Requested Visits Authorized [id number] Authorization Not Required 1 1 Encounter Details Date Type Department Care Team (Late st Contact Info) Description 07/12/2023 14:00 EST Office Visit [facility] Cancer Center Hematology & [place] [address] Maria Alejandra Jung MD [address] [facility], [facility] [address] [place] [address] MGUS (monoclonal gammopathy of unknown significance) (Primary Dx) Social History Tobacco Use Types [...] Sign Reading Time Taken Comments Blood Pressure 112/57 07/12/2023 1330 EST Pulse 80 07/12/2023 1330 EST manual, regular Temperature 36.6 ??C (97.8 ??F) 07/12/2023 1330 EST Respiratory Rate 16 07/12/2023 1330 EST Oxygen Saturation 73% 07/12/2023 1330 EST Inhaled Oxygen Concentration - - Weight [...] as of this encounter Progress Notes * Maria Alejandra Jung MD - 07/12/2023 1400 EST HEMATOLOGY VISIT NOTE Assessment & Plan This is a case of a 68-year-old who is referred today for evaluation of mildly abnormal free light chain ratio that was checked in the setting of neuropathy. 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 As per Dr. Lubin's previous note it does not seem like the burning sensation that she is reporting fits with the axonal neuropathy found on EMG. Also her CBC and CMP appear completely normal. She had multiple imaging done recently none of them showed any major bony disease. In terms of her SPEP and serum free light chains. Her SPEP was completely negative and her serum free light chains are very mildly increased which is common in about 5% of the population and is low risk for progression to any plasma cell dyscrasia. With these abnormalities alone and no clear evidence of kidney disease or any other organ dysfunction a plasma cell dyscrasia seems very less likely and no further testing is needed at this point. Danielle was reassured that this is not a bone marrow cancer and our follow-up would basically consist of repeating this blood work in about 6 months. If it stable then no need for further hematologic follow-up. Plan: Follow-up in 6-month, she will need a CBC CMP SPEP and serum free light chains prior History of present illness This is a case of a 68-year-old who is referred today for evaluation of mildly abnormal free light chain ratio that was checked in the setting of neuropathy. Danielle was tearful most of the encounter, in the beginning because she was very worried about having blood cancer or bone marrow cancer, and she was reassured that that is not the case. But she also was in significant distress reporting consistent burning on the left side of her body in the left upper and lower extremity. This burning sensation she reports she has had it for quite some time butrecently it has been progressing and became persistent and so uncomfortable that she is avoiding togo out and stays at home. She also has diffuse bodyaches which seems she relates to her recent fall. She continues to take morphine for that. She continues to smoke, she currently smokes about half a pack a day of cigarettes. She has a history of hypertension but reports that her blood pressure has been lower than usual. Patient Active Problem List Diagnosis Left leg pain Cancer Staging No matching staging information was found for the patient. Review of Systems Constitutional: Positive for malaise/fatigue. Musculoskeletal: Positive for joint pain. Neurological: Positive for tingling. Psychiatric/Behavioral: Positive for depression. The patient is nervous/anxious. All other systems reviewed and are negative. No family history on file. Social History Socioeconomic History Marital status: Single Tobacco Use Smoking status: Every Day Current packs/day: 0.25 Average packs/day: 0.3 packs/day for 21.0 years (5.3 ttl pk-yrs) Types: Cigarettes Smokeless tobacco: Never Substance and Sexual Activity Alcohol use: Not Currently Drug use: Yes Types: Marijuana Current Outpatient Medications Medication Sig albuterol 90 mcg/actuation inhaler Inhale 180 mcg [...] office. (Patient not taking: Reported on 06/18/2023) tiotropium-olodateroL (STIOLTO RESPIMAT) 2.5-2.5 mcg/actuation inhaler Inhale as directed daily. (Patient not taking: Reported on 06/18/2023) Vitals: 07/12/23 1330 BP: 112/57 Pulse: 80 Resp: 16 Temp: 36.6 ??C (97.8 ??F) TempSrc: Skin SpO2: (!) 73% Wt Readings from Last 3 Encounters: 06/11/23 59 kg (130 lb) 11/15/22 59 kg (130 lb) 10/30/22 61.2 kg (135 lb) Physical Exam Constitutional: She is oriented to person, place, and time. She appears well-developed. In a wheelchair tearful Pulmonary/Chest: Effort normal. Musculoskeletal: General: No edema. Normal range of motion. Neurological: She is alert and oriented to person, place, and time. Skin: Skin is warm. Psychiatric: Appears depressed and anxious. Lab Results Component Value Date WBC 7.96 07/12/2023 HGB 12.8 07/12/2023 HCT 35.6 07/12/2023 MCV 90 07/12/2023 PLT 245 07/12/2023 NEUTROABS 4.47 07/12/2023 CALCIUM 9.1 07/12/2023 CO2 27 07/12/2023 AST 30 07/12/2023 ALT 17 07/12/2023 TBIL 0.5 07/12/2023 CREATININE 0.86 07/12/2023 ANIONGAP 8 07/12/2023 TP 7.2 07/12/2023 K 4.9 07/12/2023 ALKPHOS 72 07/12/2023 LABALBU 4.2 07/12/2023 BUN 11 07/12/2023 CALCGFR 74 07/12/2023 CL 103 07/12/2023 SERGLU 89 07/12/2023 NA 138 07/12/2023 Lab Results Component Value Date SPEPCOM 06/25/2023 No apparent monoclonal protein seen on serum electrophoresis Imaging No results found. I spent a total of 60 minutes on the date of this encounter meeting with the patient and reviewing documentation/coordinating care as described in the above note. No procedures were performed at the time of the visit. Maria Alejandra Jung MD documented in this encounter Plan of Treatment Upcoming Encounters Date Type Department Care Team (Late st Contact Info) Description 01/07/2024 12:45 EDT Phlebotomy Only [facility] Cancer Center Hematology & [place] [address] Blood Doctor, [facility] Hem Onc 01/07/2024 13:30 EDT Office Visit [facility] Cancer Center Hematology & Oncology - [address] [phone] Maria Alejandra Jung MD [address] [place] [address], [address] [place] [phone] 01/16/2024 14:30 EDT Appointment [facility] Center Breast Imaging Mammography - [address] [phone] documented as of this encounter Visit Diagnoses Diagnosis MGUS (monoclonal gammopathy of unknown significance)- Primary Monoclonal paraproteinemia documented in this encounter Care Teams Contact Acid Plant Operator Helper Relationship Specialty Start Date End Date Alina Santacruz MD [address] [place] [phone] PCP - General 08/17/21 documented as of this encounter
--- OUTSIDE RECORDS SUMMARY | 2023-12-31 16:46 | XMS_ITS | Encounter Summary ---
Author Organization [facility] Address [address] [place] [address] Care Team Providers Care Mental Health Clinician Name Role Phone Alina Santacruz MD Primary Care Provider Encounter Details Date Type Department Care Team (Late Contact Info) Description 06/07/2023 14:00 EST Phlebotomy Only [facility] ED Center 2 Phlebotomy [address], [place] [address] Crate Repairer, Acc Phlebotomy Polyneuropathy; Abnormal thyroid function test Social History Tobacco Use Types Packs/Day Years [...] Info) Description 01/07/2024 12:45 EDT Phlebotomy Only [facility] Hematology & Oncology [address] [phone] Blood Doctor, [facility] Hem Onc 01/07/2024 13:30 EDT Office Visit [facility] Hematology & Oncology [address] [address] Maria Alejandra Jung MD 111 [facility], [facility], [address] [place] [phone] 01/16/2024 14:30 EDT Appointment Medical Center Breast Imaging Mammography - [facility] [address] [place] [address] documented as of this encounter Procedures Procedure Name Priority Date/Time Associated Diagnosis Comments TSH Today 06/07/2023 14:21 EST Polyneuropathy Abnormal thyroid function test FOLATE Today 06/07/2023 14:21 EST Polyneuropathy VITAMIN B12 Today 06/07/2023 14:21 EST Polyneuropathy documented in this encounter Results * FOLATE (06/07/2023 14:21 EST) Folate 13.7 See Note ng/mL 06/07/2023 15:08 EST [facility] Comment: Reference Ranges for Folate: Deficient: ?< 3.4 ng/mL Indeterminate: ??3.4 - 5.4 ng/mL Normal: ? > 5.4 ng/mL The results of this assay can be falsely elevated due to the consumption of Biotin. Blood VENOUS BLOOD / Unknown Venipuncture / Unknown 06/07/2023 14:21 EST 06/07/2023 14:27 EST Alina Santacruz MD CHEMISTRY & BLOOD GA S ORDERABLES [facility] [address] [place] [address] * VITAMIN B12 (06/07/2023 14:21 EST) Vitamin B12 415 211 - 911 pg/mL 06/07/2023 15:09 EST [facility] Blood VENOUS BLOOD / Unknown Venipuncture / Unknown 06/07/2023 14:21 EST 06/07/2023 14:27 EST Alina Santacruz MD CHEMISTRY & BLOOD GA S ORDERABLES Performing Organization Address City/[facility]/ZIP Co de Phone Number [facility] [address] [place] [address] * TSH (06/07/2023 14:21 EST) TSH 3.41 0.47 - 4.68 mIU/L 06/07/2023 16:11 EST [facility] Blood VENOUS BLOOD / Unknown Venipuncture / Unknown 06/07/2023 14:21 EST 06/07/2023 14:27 EST Narrative [facility] - 06/07/2023 16:11 EST The results of this assay can be falsely lowered due to the consumption of Biotin. Alina Santacruz MD CHEMISTRY & BLOOD GA S ORDERABLES Performing Organization Address [facility] Co de Phone Number [facility] [address] [place] [phone] documented in this encounter Visit Diagnoses Diagnosis Polyneuropathy Unspecified hereditary and idiopathic peripheral neuropathy Abnormal thyroid function test Nonspecific abnormal results of thyroid function study documented in this encounter Care Teams Mental Health Clinician Relationship Specialty Start Date End Date Alina Santacruz MD [address] [place] [phone] PCP - General 08/17/21 documented as of this encounter
--- OUTSIDE RECORDS SUMMARY | 2023-12-31 16:46 | XMS_ITS | Encounter Summary ---
Author Organization [facility] Address [address] [place] [address] Care Team Providers Care Shoe Shanker Name Role Phone Alina Santacruz MD Primary Care Provider [phone] Reason for Visit * Cardiology (Routine/Next Available) - Closed Specialty Diagnoses / Procedures Referred By Contac jacinto Referred To Contact Cardiology Diagnoses Mitral valve insufficiency, unspecified etiology Procedures TRANSTHORACIC ECHO (TTE) COMPLETE WY ECHO HEART XTHORACIC,COMPLETE W DOPPLER Alina Santacruz MD [address] [place] [address] [place] [phone] [facility] Cardiology [address] [place] [address] Referral ID Status Reason Start Date Expiration Date Visits Re quested Visits Authorized [id number] Closed 10/12/2021 06/03/2022 1 1 Encounter Details Date Type Department Care Team (Latest Contact Info) Description 03/06/2022 14:00 EDT Ancillary Procedure [facility] Cardiology - [address] [place], [place] [phone] Mitral valve insufficiency, unspecified etiology Social History Tobacco Use Types Packs/Day Years [...] Sign Reading Time Taken Comments Blood Pressure 107/52 03/06/2022 1358 EDT Pulse - - Temperature - - Respiratory Rate - - Oxygen Saturation - - Inhaled Oxygen Concentration - - Weight 61.2 kg (135 lb) 03/06/2022 1358 EDT Height 162.6 cm (5' 4) 03/06/2022 1358 EDT Body Mass Index 23.17 03/06/2022 1358 EDT documented in this encounter Plan of Treatment Upcoming Encounters Date Type Department Care Team (Late st Contact Info) Description 01/07/2024 12:45 EDT Phlebotomy Only [facility] Hematology & Oncology [address] [phone] Blood Doctor, [facility] Hem Onc 01/07/2024 13:30 EDT Office Visit [facility] Hematology & Oncology [address] [address] Maria Alejandra Jung MD [address] [place] [address], [address] [place] [phone] 01/16/2024 14:30 EDT Appointment [facility] Breast Imaging Mammography [address] [phone] documented as of this encounter Procedures Procedure Name Priority Date/Time Associated Diagnosis Comments TRANSTHORACIC ECHO (TTE) COMPLETE Routine 03/06/2022 13:51 EDT Mitral valve insufficiency, unspecified etiology documented in this encounter Results * TRANSTHORACIC ECHO (TTE) COMPLETE W/DOPPLER W/CF NO CONTRAST (03/06/2022 13:51 EDT) LA Atrial Length A2C 4.4 cm MERGE CARDI O LA Atrial Area A4C 14.1 cm2 MERGE CARDIO LA ID/bsa, A-P 2.2 cm/m2 MERGE C[facility]IO LV ID, ED, PLAX 4.9 3.5 - 6.0 cm MERGE CARDIO LVIDD BY MMODE 4.9 cm MERGE CARDIO LV ID, ES, PLAX 3.5 2.1 - 4.0 cm MERGE CARDIO LA ID, A-P, ES 3.6 cm MERGE C[facility]IO LV PW thickness, ED, PLAX 1.1 0.6 - 1.1 cm MERGE CARDIO Aortic root ID 3.1 cm MERGE CARDIO LV ejection fraction, 1-p A4C 52 % MERGE C[facility]IO LVOT mean gradient, S 1 mmHg MERGE C[facility]IO AV LVOT peak gradient 3 mmHg MERGE CARDIO LV e', lateral 0.07 m/s MERGE CARDIO Mitral deceleration time 187 ms MERGE CARDIO LV IVRT, DP 141 msec MER[facility] C[facility]IO LVOT area 3.1 cm2 MERGE CARDIO LVOT peak velocity, S 0.9 m/s MERGE CARDIO LVOT VTI, S 15.9 cm MERGE CARDIO Stroke volume (SV), LVOT DP 50 ml MERGE CARDIO LVOT mean velocity, S 0.5 m/s MERGE CARDIO Mitral E-wave peak velocity 0.5 m/s MERGE CARDIO Mitral A-wave peak velocity 0.7 m/s MERGE CARDIO LV Systolic Volume Index 15.0 mL/m2 MERGE CARDIO LV Diastolic Volume Index 34.0 mL/m2 MERGE CARDIO LA Atrial Length A4C 4.6 cm MERGE CARDI O LVOT ID, S 2.0 cm MERGE CARDIO EF 56 % MERGE CARDIO LA volume, ES, BP 36.0 ml MERGE CARDIO LA volume/bsa, ES, A4C 21.0 ml/m2 MERGE CARDIO LA volumes, ES, A4C 35.0 ml MERGE CARDIO LA volume/bsa, ES, BP 22.0 ml/m2 MERGE CARDIO LV Systolic Volume 25 mL MERGE CARDIO LV Diastolic Volume 56 mL MERGE CARDIO Stroke index (SV/bsa) LVOT DP 30.0 ml/m2 MERGE CARDIO Interventricular Septum to Posterior Wall Thickness Ratio 1 MERGE C[facility]IO IVS thickness, ED, PLAX 1.1 cm MERGE CARDIO LV e', medial 0.05 m/s MERGE CARDIO LV e', average 0.06 m/s MERGE CARDIO Pulmonic valve mean velocity, S 1 cm/s MERGE CARDIO Ascending aorta ID, a-p 3.1 cm MERGE CARDIO LA Atrial Area A2C 14.1 cm2 MERGE CARDIO LA/aortic root ratio 1.16 MERGE CARDI O LV end diastolic volume 1-p A2C 48 ml MERGE CARDIO LV ejection fraction, 1-p A2C 66 % MERGE CARDIO LV E/e', lateral 7.0 MERGE CARDIO LV E/e', medial 0.0 MERGE CARDIO LV E/e', average 4 MERGE CARDIO LV end-diastolic volume, 1-p A4C 67 ml MERGE CARDIO Anatomical Region Laterality Modality Ultrasound Narrative 03/06/2022 14:22 EDT ?Left??Ventricle: Left ventricular systolic function was low normal with an ejection fraction of 50-55%. Although no diagnostic regional wall motion abnormality was identified, this possibility cannot be completely excluded on the basis of this study. ?Right??Ventricle: Right ventricular systolic function was normal. ?Mitral??Valve: There was mild to moderate mitral regurgitation. Left Ventricle The left ventricular cavity was normal in size. Left ventricular systolic function was low normal with an ejection fraction of 50-55%. The study is not technically sufficient to allow evaluation of left ventricular diastolic function. Left ventricular wall thickness was normal. Although no diagnostic regional wall motion abnormality was identified, this possibility cannot be completely excluded on the basis of this study. Right Ventricle The right ventricular cavity was normal in size. Right ventricular systolic function was normal. Right ventricular wall thickness was normal. Left Atrium The left atrium was normal in size. Right Atrium The right atrium was normal in size. IVC/SVC The inferior vena cava was normal in size. Mitral Valve Mitral valve structure was normal. There was mild to moderate mitral regurgitation. There was no significant mitral valve stenosis. Tricuspid Valve There was mild tricuspid valve regurgitation. There was no tricuspid valve stenosis. Aortic Valve The aortic valve structure was trileaflet. The aortic leaflets were not thickened. There was no aortic valve stenosis. There was no aortic valve regurgitation. Pulmonic Valve There was no pulmonic valve regurgitation. There was no pulmonic valve stenosis. Ascending Aorta The aorta was normal in size. Pericardium There was no pericardial effusion. Pulmonic Artery Unable to assess PA pressure. Study Details Study status: Routine. Transthoracic echocardiography. M-Mode, complete 2D, complete spectral Doppler, and color Doppler.The study was interpreted by [facility] Cardiology. Pertinent images and digital data are archived for permanent storage and are available for subsequent review. Scanning was performed from the apical, parasternal, subcostal and suprasternal acoustic windows. Overall the study quality was suboptimal. The study was difficult due to patient body habitus. Images were obtained using cardiac ultrasound machine [employer] #15. Alina Santacruz MD CARDIAC ECHO ORDERAB LES documented in this encounter Visit Diagnoses Diagnosis Mitral valve insufficiency, unspecified etiology documented in this encounter Care Teams Shoe Shanker Relationship Specialty Start Date End Date Alina Santacruz MD [address] [place] [phone] PCP - General 08/17/21 documented as of this encounter
--- OUTSIDE RECORDS SUMMARY | 2023-12-31 16:46 | XMS_ITS | Encounter Summary ---
Author Organization [facility] Address [address] [place] [address] Care Team Providers Care Scale Tester Name Role Phone Alina Santacruz MD Primary Care Provider [phone] Encounter Details Date Type Department Care Team (Latest Contact Info) Description 06/07/2023 Transcribe Orders [facility] CLINICAL SUPPORT Alina Olivares MD [address] [phone] Polyneuropathy (Primary Dx); Abnormal thyroid function test Social History Tobacco [...] Info) Description 01/07/2024 12:45 EDT Phlebotomy Only [facility] Hematology & Oncology [address] [phone] Blood Doctor, [facility] Hem Onc 01/07/2024 13:30 EDT Office Visit [facility] Hematology & Oncology - [address] [address] Maria Alejandra Jung MD [address] [place] [address], [facility] Level [address] [place] [phone] 01/16/2024 14:30 EDT Appointment [facility] Breast Imaging Mammography - [address] [address] documented as of this encounter Results * FOLATE (06/07/2023 14:21 EST) [facility] Folate 13.7 See Note ng/mL 06/07/2023 15:08 EST [facility] Comment: Reference Ranges for Folate: Deficient: ?< 3.4 ng/mL Indeterminate: ??3.4 - 5.4 ng/mL Normal: ? > 5.4 ng/mL The results of this assay can be falsely elevated due to the consumption of Biotin. Blood VENOUS BLOOD / Unknown Venipuncture / Unknown 06/07/2023 14:21 EST 06/07/2023 14:27 EST Alina Santacruz MD CHEMISTRY & BLOOD GA S ORDERABLES [facility] [address] [place] [phone] * VITAMIN B12 (06/07/2023 14:21 EST) Pathologist [facility] Vitamin B12 415 211 - 911 pg/mL 06/07/2023 15:09 EST [facility] Blood VENOUS BLOOD / Unknown Venipuncture / Unknown 06/07/2023 14:21 EST 06/07/2023 14:27 EST Alina Santacruz MD CHEMISTRY & BLOOD GA S ORDERABLES [facility] [address] [place] [address] * TSH (06/07/2023 14:21 EST) TSH 3.41 0.47 - 4.68 mIU/L 06/07/2023 16:11 EST [facility] Blood VENOUS BLOOD / Unknown Venipuncture / Unknown 06/07/2023 14:21 EST 06/07/2023 14:27 EST Narrative [facility] - 06/07/2023 16:11 EST The results of this assay can be falsely lowered due to the consumption of Biotin. Alina Santacruz MD CHEMISTRY & BLOOD GA S ORDERABLES Performing Organization Address City/State/[facility] Co de Phone Number [facility] [address] [place] [address] documented in this encounter Visit Diagnoses Diagnosis Polyneuropathy- Primary Unspecified hereditary and idiopathic peripheral neuropathy Abnormal thyroid function test Nonspecific abnormal results of thyroid function study documented in this encounter Orders Lab Orders Without Results Count Last Ordered D ate First Ordered Date METHYLMALONIC ACID 1 06/07/2023 SERUM FREE LIGHT CHAINS 1 06/07/2023 SPEP WITH IMMUNOTYPING 1 06/07/2023 documented in this encounter Care Teams Scale Tester Relationship Specialty Start Date End Date Alina Santacruz MD [address] [place] [phone] PCP - General 08/17/21 documented as of this encounter
--- OUTSIDE RECORDS SUMMARY | 2023-12-31 16:46 | XMS_ITS | Encounter Summary ---
Author Organization [facility] Address [address] [place] [address] Care Team Providers Care Pump Station Operator Name Role Phone Alina Santacruz MD Primary Care Provider Reason for Visit * Reason Comments Rectal Bleeding Pt reports hal blo od in BM this morning. Bowel movements have been otherwise normal. Endorses weeks to months of dizziness and RLQ abdominal pain/pressure. Normotensive, HR 80 in triage. Encounter Details Date Type Department Care Team ([facility] st Contact Info) Description 10/30/2022 5:44 EDT - 10/30/2022 10:47 EDT Emergency [facility] Emergency Department - Main [address] [address] Alex Jasmine MD [address] [place] [id number] Hematochezia (Primary Dx); Cirrhosis of liver without ascites, unspecified hepatic cirrhosis type (HCC-CMS); Colitis Discharge Disposition: Home or Self Care Social History Tobacco Use Types Packs/Day Years Used Date Smoking Tobacco: Every Day Cigarettes 1 21 Smokeless Tobacco: Never Tobacco Cessation:Ready to Q uit: Not Asked; Counseling Given: Not Answered Interpersonal Safety Answer Date Record ed Physically Hurt Never 01/04/2020 Verbally Threaten Not on file 01/04/2020 Sex and Gender Information Value Date Recorded Sex Assigned at Not on file Gender Identity Female 08/17/2021 11:20 EDT Sexual Orientation Not on file documented as of this encounter Last Filed Vital Signs Vital Sign Reading Time Taken Comments Blood Pressure 132/76 10/30/2022 1025 EDT Pulse 74 10/30/2022 1025 EDT Temperature 36 ??C (96.8 ??F) 10/30/2022 1025 EDT Respiratory Rate 14 10/30/2022 1025 EDT Oxygen Saturation 98% 10/30/2022 1025 EDT Inhaled Oxygen Concentration - - Weight 61.2 kg (135 lb) 10/30/2022 0542 EDT Height 162.6 cm (5' 4) 10/30/2022 0542 EDT Body Mass Index 23.17 10/30/2022 0542 EDT documented in this encounter Discharge Instructions * Discharge Instructions* Alex Jasmine MD - 10/30/2022 7:31 EDT - Your blood count looks good while you are here in the emergency department -Your primary care physician can work with you to arrange for colonoscopy urgently in the outpatient setting -If you start passing out fainting, having difficulty walking or taking care of yourself, return immediately to the emergency -Remember like we talked about it will be normal to have bleeding for the next couple of days. Please contact your primary care doctor during the next business day. It is very important that youmention you were evaluated in the emergency department, and please mention that we would like you to follow-up in urgent fashion. You should discuss your signs and symptoms, and please let the primary physician know how you are improving. If you develop any symptoms that are worsening, or anything t hat you find highly concerning or distressing and seek reevaluation, please return to the emergencydepartment. We wish you the best with your follow-up care! * Attachments The following attachments cannot be sent through Care Everywhere. * GI Bleeding: Lower (Hebrew) documented in this encounter Medications at Time [...] tablet Take 1 Tablet by mouth daily. fosinopriL-hydrochloro thiazide (MONOPRIL-HCT) 10-12.5 mg per tablet Take 1 [...] 2.5-2.5 mcg/actuation inhaler Inhale as directed daily. amoxicillin-clavulanat e (AUGMENTIN) 875-125 mg per tablet Take 1 Tablet by mouth 2 times daily for 7 days. 14 Tablet 10/30/2022 11/06/2022 documented as of this encounter Ordered Prescriptions Prescription Sig Dispensed Refills Start Date End Da te amoxicillin-clavulanate (AUGMENTIN) 875-125 mg per tablet Take 1 Tablet by mouth 2 times daily for 7 days. 14 Tablet 10/30/2022 11/06/2022 documented in this encounter Discharge Disposition Disposition Code Departure Means Destination Home or Self Prison documented in this encounter ED Notes * Chinyere Garza RN - 10/30/2022 0974 EDT aware of stool. Stool small and gelatin consistency with some blood in it. ERP wants it sent to lab. Lab and stool sent to lab. * Diya Gonzalez RN - 10/30/2022 0745 EDT Patient reports chronic pain and right abdomen pain. MD made aware and medicated * Alex Jasmine MD - 10/30/2022 0605 EDT Emergency Department Visit This documentation is recorded by Luis Wilkes acting as Scribe under the direction and presence of Alex Jasmine MD. Alex Jasmine MD: I personally performed the services recorded by the scribe in my presence. Iconfirm the scribe's documentation has been reviewed by me to accurately and completely record my work, treatment, procedures, and medical decision making. Patient Identification: Danielle Soto is a 67 y.o. female. Chief complaint: Chief Complaint Patient presents with ??? Rectal Bleeding Pt reports hal blood in BM this morning. Bowel movements have been otherwise normal. Endorses weeks to months of dizziness and RLQ abdominal pain/pressure. Normotensive, HR 80 in triage. A medical screening was performed. Medical Decision Making and ED Events are contained below in theED course. MDM & ED COURSE: Relevant Data as of 10/30/22 1010 Mon October 30, 2022 0630 In summary a 67-year-old female with history of hepatitis C, cirrhosis morphology, chronic pain and fibromyalgia presents with bright red blood per rectum, concerning for diverticular bleeding, less likely upper GI bleed or variceal etiology. Hemodynamically stable here. We will plan for external rectal exam to evaluate for the presence of hemorrhoids. Nothing painful suggestive of an infectious or inflammatory etiology. Plan to check CBC CMP as well as PT/INR to evaluate hepatic syntheticfunction. We will plan to place intravenous access, type and screen. Hold off on resuscitation at this time [JK] 0731 Initial hemoglobin is normal. Rectal exam notable for single small external hemorrhoid with nobleeding. No anal fissure. We will plan for repeat hemoglobin at 10 AM, if this is normal, plan for urgent referral to PCP forbowel regimen and ultimately colonoscopy Reviewed reasons to return to the emergency department [JK] 0833 CT with a small amount of stranding authorization representative of colitis. The patient does not have any overt infectious symptoms, fevers, but given presentation with her relatively immunosuppressed state in general, will plan for treatment with Augmentin. [JK] 1009 Hemoglobin(!): 10.5 [JK] 1009 Very mild drop in hemoglobin, and only a small amount of rectal blood produced. C. difficile PCR is pending at this time. Will place on course of Augmentin for colitis. Reviewed reasons to return to the emergency department. Discharged home [JK] Relevant Data User Index [JK] Alex Jasmine MD While under my care in the Emergency Department, the patient's pain was managed to an adequate level weighing risk vs. benefit of medication. Disposition: As noted in the electronic medical record or described above. ED Problems Considered: 1. Hematochezia 2. Cirrhosis of liver without ascites, unspecified hepatic cirrhosis type (HCC- CMS) (HCC) 3. Colitis --- BACKGROUND HISTORY, EXAM, AND DATA AVAILABLE AT THE TIME OF DISPOSITION --- History of Present Illness The patient reports having bright red blood in her stool this morning. She says that her stool was loose, but not diarrhea. Her suspects that there were clots in the stool. She reports that she has never had blood in her stool before. The patient denies nausea, emesis, dysuria, hematuria. She does note some right sided abdominal [...] she has had several falls due to this, most recently yesterday. She denies head strike. The patient states that she has been having chest pains occasionally for about a year while she says she takes a medication for. The patientreports an abdominal surgical history of a hysterectomy and appendectomy. She says that she has hada colonoscopy before. Nursing notes reviewed. Patient's pertinent PMH, FH, SH were reviewed and edited as necessary. Highlights of Physical Examination The patient is generally well appearing, appears stated age. Able to follow commands and regards examiner appropriately, speaking full and fluent sentences. Normal midrange pupils. Unlabored respiratory effort. 2+ radial pulses bilaterally, with a regular rhythm. Skin is warm, dry, and intact without diaphoresis or rash on exposed skin. Appropriate thought content and insight. Positive right CVA tenderness. Heart sounds regular. Lungs clear to auscultation bilaterally. On external rectal exam, there is one small external hemorrhoid. No active bleeding, not thrombosed. No anal fissure. Laboratory Results Labs Reviewed COMPLETE BLOOD COUNT AND DIFFERENTIAL - Abnormal Result Value Status WBC 7.42 Final RBC 3.58 (*) Final Hemoglobin 11.1 (*) Final HCT 33.1 (*) Final MCV 93 Final MCH 31.0 Final MCHC 33.5 Final RDW-CV 13.7 Final RDW-SD 46.9 Final PLT 221 Final MPV 10.4 Final % Neutrophils 65.6 Final % Lymphocytes 21.2 Final % Monocytes 10.5 Final % Eosinophils 1.9 Final % Basophils 0.4 Final % Immature Grans 0.4 Final Absolute Neutrophils 4.87 Final Absolute Lymphocytes 1.57 Final Absolute Monocytes 0.78 Final Absolute Eosinophils 0.14 Final ABS Basophils 0.03 Final Absolute Immature Grans 0.03 Final Type of Differential: Auto Final COMPREHENSIVE METABOLIC PANEL (CMP) - Abnormal Sodium 134 (*) Final Potassium 5.0 Final Chloride 101 Final CO2 Total 26 Final Glucose 96 Final BUN 24 Final Creatinine 0.99 Final eGFR 63 Final Total Protein 7.2 Final Albumin 4.1 Final Alkaline Phosphatase 67 Final AST 42 Final ALT 35 (*) Final Bilirubin, Total <0.5 Final Calcium 8.8 Final Albumin/Globulin Ratio 1.3 Final Anion Gap 7 Final COMPLETE BLOOD COUNT - Abnormal WBC 7.57 Final RBC 3.30 (*) Final Hemoglobin 10.5 (*) Final HCT 30.2 (*) Final MCV 92 Final MCH 31.8 Final MCHC 34.8 Final RDW-CV 13.8 Final RDW-SD 46.6 Final PLT 206 Final MPV 10.2 Final PROTIME - Normal I.N.R. 1.0 Final Pro Time 11.6 Final Narrative: Moderate Intensity Coumadin INR = 2.0-3.0 Adjustments in anticoagulant therapy dose should be based on the INR and NOT on the Protime. C. DIFFICILE PCR TYPE AND SCREEN ABO A Final Rh Factor Positive Final Antibody Screen Negative Final Specimen Expires: 11/02/2022 @ 23:59 Final Data Interpretation Imaging obtained was reviewed and independently interpreted. My interpretation is noted in the ED course section. Laboratory data obtained was reviewed. Again, my interpretation lies in the ED course section. Procedures Procedures Procedures Alex Jasmine MD Emergency Medicine and Medical Toxicology Attending Physician documented in this encounter Plan of Treatment Upcoming Encounters Date Type Department Care Team (Late st Contact Info) Description 01/07/2024 12:45 EDT Phlebotomy Only [facility] Hematology & Oncology [address] [phone] Blood Doctor, [facility] Hem Onc 01/07/2024 13:30 EDT Office Visit [facility] Hematology & Oncology [address] [id number] MariaA lejandra Jung MD [address] [place] [address], [address] [place] [id number] 01/16/2024 14:30 EDT Appointment [facility] Breast Imaging Mammography [address] [phone] documented as of this encounter Procedures Procedure Name Priority Date/Time Associated Diagnosis Comments C. DIFFICILE PCR Routine 10/30/2022 9:43 EDT COMPLETE BLOOD COUNT Routine 10/30/2022 9:[address] ABDOMEN PELVIS W CONTRAST STAT 10/30/2022 8:06 EDT PROTIME STAT 10/30/2022 6:35 EDT COMPLETE BLOOD COUNT AND DIFFERENTIAL STAT 10/30/2022 6:35 EDT TYPE AND SCREEN STAT 10/30/2022 6:35 EDT COMPREHENSIVE METABOLIC PANEL (CMP) STAT 10/30/2022 6:35 EDT documented in this encounter Results * C. DIFFICILE PCR (10/30/2022 9:43 EDT) C. difficile PCR Negative Negative 10/30/2022 13:17 EDT [facility] Feces SPECIMEN FROM RECTUM / Unknown Stool Collect / Unknown 10/30/2022 9:43 EDT 10/30/2022 10:53 EDT Alex Jasmine MD MICROBIOLOGY - GENER AL ORDERABLES [facility] [address] [place] [address] * (ABNORMAL) COMPLETE BLOOD COUNT (10/30/2022 9:43 EDT) WBC 7.57 4.00 - 12.40 K/cmm 10/30/2022 10:01 [facility] RBC 3.30(L) 3.86 - 5.04 M/cmm 10/30/2022 10:01 [facility] Hemoglobin 10.5(L) 11.6 - 15.2 g/dL 10/30/2022 10:01 [facility] HCT 30.2(L) 34.9 - 44.4 % 10/30/2022 10:01 [facility] MCV 92 81 - 98 fL 10/30/2022 10:01 [facility] MCH 31.8 26.7 - 33.3 pg 10/30/2022 10:01 [facility] MCHC 34.8 32.1 - 35.9 g/dL 10/30/2022 10:01 [facility] RDW-CV 13.8 <14.7 % 10/30/2022 10:01 [facility] RDW-SD 46.6 <50.4 fl 10/30/2022 10:01 [facility] PLT 206 141 - 377 K/cmm 10/30/2022 10:01 [facility] MPV 10.2 9.5 - 12.7 fL 10/30/2022 10:01 EDT [facility] Blood VENOUS BLOOD / Unknown Venipuncture / Unknown 10/30/2022 9:43 EDT 10/30/2022 9:51 EDT Alex Jasmine MD HEMATOLOGY & PF4 ORD ERABLES [facility] [address] [place] [address] * CT ABDOMEN PELVIS W CONTRAST (10/30/2022 8:06 EDT) Anatomical Region Laterality Modality Body, Abdomen, Pelvis, Abdomen and Pelvis Computed Tomography 10/30/2022 8:38 EDT Impressions 10/30/2022 8:38 EDT 1. ??Findings of colitis involving the descending and sigmoid colon which is favored to be of an infectious or less likely inflammatory or ischemic etiology. No evidence of stenosis of the proximal abdominal vasculature. 2. ??Atherosclerosis. I have personally reviewed the images and the above interpretation and agree with the findings. Narrative 10/30/2022 8:[address] ABDOMEN PELVIS W CONTRAST ??10/30/2022 7:55 AM Signs and Symptoms/Comments: ?? hematochezia; Melena; hematochezia Technique: CT of the abdomen and pelvis was performed following the administration intravenous contrast. Comparison: CT abdomen pelvis 12/18/2021 Findings: Lower chest: Mild dependent atelectasis Hepatobiliary: Liver enhances normally. No focal hepatic lesion. Gallbladder is unremarkable. No biliary ductal dilatation. Spleen, pancreas, adrenal glands: The spleen, pancreas, and adrenal glands are normal. Kidneys, ureters, bladder: Kidneys enhance symmetrically. Bilateral renal cysts are again noted. Mild cortical scarring in bilateral kidneys. No hydroureteronephrosis. The urinary bladder is unremarkable. Uterus, ovaries: The surgically absent. No adnexal mass. Bowel: There is suspected bowel wall thickening involving the decompressed ascending colon and sigmoid colon. There is mild pericolonic fat stranding involving the descending and sigmoid colon. No bowel dilatation. No significant colonic diverticular disease. Peritoneal cavity: No free air or free fluid. Lymphovascular: No lymphadenopathy. Abdominal aorta is normal in caliber. Scattered atherosclerotic calcifications. Abdominal vasculature is patent. Abdominal wall: Fat is present along the umbilicus. Abdominal wall is otherwise intact. Musculoskeletal: There is for curvature centered in the mid lumbar spine with associated degenerative changes. Mild degenerative changes are present in the bony pelvis. No concerning focal osseous lesion is identified. Veterinary Milk Specialist: No additional findings. Procedure Note Corey Castillo MD - 10/30/2022 CT ABDOMEN PELVIS W CONTRAST 10/30/2022 7:55 AM Signs and Symptoms/Comments: hematochezia; Melena; hematochezia Technique: CT of the abdomen and pelvis was performed following the administrationintravenous contrast. Comparison: CT abdomen pelvis 12/18/2021 Findings: Lower chest: Mild dependent atelectasis Hepatobiliary: Liver enhances normally. No focal hepatic lesion.Gallbladder is unremarkable. No biliary ductal dilatation. Spleen, pancreas, adrenal glands: The spleen, pancreas, and adrenal glandsare normal. Kidneys, ureters, bladder: Kidneys enhance symmetrically. Bilateral renalcysts are again noted. Mild cortical scarring in bilateral kidneys. Nohydroureteronephrosis. The urinary bladder is unremarkable. Uterus, ovaries: The surgically absent. No adnexal mass. Bowel: There is suspected bowel wall thickening involving the decompressedascending colon and sigmoid colon. There is mild pericolonic fat strandinginvolving the descending and sigmoid colon. No bowel dilatation. Nosignificant colonic diverticular disease. Peritoneal cavity: No free air or free fluid. Lymphovascular: No lymphadenopathy. Abdominal aorta is normal in caliber.Scattered atherosclerotic calcifications. Abdominal vasculature ispatent. Abdominal wall: Fat is present along the umbilicus. Abdominal wall isotherwise intact. Musculoskeletal: There is for curvature centered in the mid lumbar spinewith associated degenerative changes. Mild degenerative changes arepresent in the bony pelvis. No concerning focal osseous lesion isidentified. Veterinary Milk Specialist: No additional findings. IMPRESSION 1. Findings of colitis involving the descending and sigmoid colon whichis favored to be of an infectious or less likely inflammatory or ischemicetiology. No evidence of stenosis of the proximal abdominal vasculature. 2. Atherosclerosis. I have personally reviewed the images and the above interpretation andagree with the findings. Alex Jasmine MD IMG CT ORDERABLES * TYPE AND SCREEN (10/30/2022 6:35 EDT) ABO A 10/30/2022 7:43 EDT [facility] Rh Factor Positive 10/30/2022 7:43 EDT [facility] Antibody Screen Negative 10/30/2022 7:43 EDT [facility] Specimen Expires: 11/02/2022 @ 23:59 10/30/2022 7:43 EDT [facility] Blood VENOUS BLOOD / Unknown Venipuncture / Unknown 10/30/2022 6:35 EDT 10/30/2022 7:08 EDT Alex Jasmine MD BLOOD BANK TESTS Performing Organization Address [facility] Co de Phone Number [facility] [address] [place] [address] * PROTIME (10/30/2022 6:35 EDT) [facility] I.N.R. 1.0 0.9 - 1.1 Ratio 10/30/2022 6:55 EDT [facility] Pro Time 11.6 9.7 - 12.8 secs 10/30/2022 6:55 EDT [facility] Blood VENOUS BLOOD / Unknown Venipuncture / Unknown 10/30/2022 6:35 EDT 10/30/2022 6:39 EDT Narrative [facility] - 10/30/2022 6:55 EDT Moderate Intensity Coumadin INR = 2.0-3.0 Adjustments in anticoagulant therapy dose should be based on the INR and NOT on the Protime. Alex Jasmine MD HEMATOLOGY & PF4 ORD ERABLES Performing Organization Address [facility] Co de Phone Number [facility] [address] [place] [address] * (ABNORMAL) COMPREHENSIVE METABOLIC PANEL (CMP) (10/30/2022 6:35 EDT) [facility] Sodium 134(L) 136 - 145 mmol/L 10/30/2022 6:59 [facility] Potassium 5.0 3.5 - 5.0 mmol/L 10/30/2022 6:59 [facility] Chloride 101 96 - 110 mmol/L 10/30/2022 6:59 [facility] CO2 Total 26 22 - 32 mmol/L 10/30/2022 6:59 [facility] Glucose 96 70 - 100 mg/dl 10/30/2022 6:59 [facility] BUN 24 10 - 26 mg/dL 10/30/2022 6:59 [facility] Creatinine 0.99 0.52 - 1.04 mg/dL 10/30/2022 6:59 [facility] eGFR 63 >60 mL/min/1.7 3m2 10/30/2022 6:59 [facility] Total Protein 7.2 6.3 - 8.2 g/dL 10/30/2022 6:59 [facility] Albumin 4.1 3.4 - 4.9 g/dL 10/30/2022 6:59 [facility] Alkaline Phosphatase 67 38 - 126 U/L 10/30/2022 6:59 [facility] AST 42 15 - 46 U/L 10/30/2022 6:59 [facility] ALT 35(H) <35 U/L 10/30/2022 6:59 [facility] Bilirubin, Total <0.5 <1.4 mg/dL 10/31/19 6:59 [facility] Calcium 8.8 8.5 - 10.5 mg/dL 10/30/2022 6:59 [facility] Albumin/Globulin Ratio 1.3 1.0 - 2.5 10/30/2022 6:59 [facility] Anion Gap 7 5 - 14 mmol/L 10/30/2022 6:59 [facility] Blood VENOUS BLOOD / Unknown Venipuncture / Unknown 10/30/2022 6:35 EDT 10/30/2022 6:39 EDT Alex Jasmine MD CHEMISTRY & BLOOD GA S ORDERABLES [facility] [address] [place] [address] * (ABNORMAL) COMPLETE BLOOD COUNT AND DIFFERENTIAL (10/30/2022 6:35 EDT) WBC 7.42 4.00 - 12.40 K/cmm 10/30/2022 6:56 EDT [facility] RBC 3.58(L) 3.86 - 5.04 M/cmm 10/30/2022 6:56 [facility] Hemoglobin 11.1(L) 11.6 - 15.2 g/dL 10/30/2022 6:56 [facility] HCT 33.1(L) 34.9 - 44.4 % 10/30/2022 6:56 [facility] MCV 93 81 - 98 fL 10/30/2022 6:56 [facility] MCH 31.0 26.7 - 33.3 pg 10/30/2022 6:56 [facility] MCHC 33.5 32.1 - 35.9 g/dL 10/30/2022 6:56 [facility] RDW-CV 13.7 <14.7 % 10/30/2022 6:56 [facility] RDW-SD 46.9 <50.4 fl 10/30/2022 6:56 [facility] PLT 221 141 - 377 K/cmm 10/30/2022 6:56 [facility] MPV 10.4 9.5 - 12.7 fL 10/30/2022 6:56 [facility] % Neutrophils 65.6 % 10/30/2022 6:56 [facility] % Lymphocytes 21.2 % 10/30/2022 6:56 [facility] % Monocytes 10.5 % 10/30/2022 6:56 [facility] % Eosinophils 1.9 % 10/30/2022 6:56 EDT [facility] % Basophils 0.4 % 10/30/2022 6:56 EDT [facility] % Immature Grans 0.4 % 10/31/19 6:56 EDT [facility] Absolute Neutrophils 4.87 2.20 - 8.85 K/cmm 10/30/2022 6:56 [facility] Absolute Lymphocytes 1.57 1.09 - 3.30 K/cmm 10/30/2022 6:56 T [facility] Absolute Monocytes 0.78 0.10 - 0.80 K/cmm 10/30/2022 6:56 [facility] Absolute Eosinophils 0.14 0.03 - 0.61 K/cmm 10/30/2022 6:56 T [facility] ABS Basophils 0.03 0.01 - 0.11 K/cmm 10/30/2022 6:56 [facility] Absolute Immature Grans 0.03 0.00 - 0.06 K/cmm 10/30/2022 6:56 [facility] Type of Differential: Auto 10/30/2022 6:56 [facility] Blood VENOUS BLOOD / Unknown Venipuncture / Unknown 10/30/2022 6:35 EDT 10/30/2022 6:39 EDT Alex Jasmine MD PACKAGES & DNA PROBE ORDERABLES [facility] [address] [place] [address] documented in this encounter Visit Diagnoses Diagnosis Hematochezia- Primary Blood in stool Cirrhosis of liver without ascites, unspecified hepatic cirrhosis type (HCC-CMS) Colitis Other and unspecified noninfectious gastroenteritis and colitis documented in this encounter Administered Medications Inactive Administered Medications - up to 3 most recent administrations Medication Order MAR Action Action Date Dose Rate Site amoxicillin-clavulanate (AUGMENTIN) 875-125 mg per tablet 1 Tablet 1 Tablet, oral, NOW X1, 1 dose, On 10/30/22 at 0845, STAT Given 10/30/2022 9:23 EDT 1 Tablet Augmentin 875 mg Tab STARTER PACK 1 Package, oral, NOW X1, 1 dose, On Sun10/30/22 at 1045, STAT Given 10/30/2022 10:46 EDT 1 Package iohexoL (OMNIPAQUE 350) solution 100 mL 100 mL, intravenous, Once in imaging, 1 dose, Starting on Sun10/30/22 at 0756, Until Sun10/30/22 at 0806, Routine, Imaging Protocol Orders Given 10/30/2022 8:06 EDT 95 mL morphine (MS IR) tablet 30 mg 30 mg, oral, NOW X1, 1 dose, On Sun10/30/22 at 0745, STAT Given 10/30/2022 7:52 EDT 30 mg documented in this encounter Historical Medications * This list may reflect changes made after this encounter. Medication Sig Dispensed Refills Start Date End Date candesartan (ATACAND) 4 mg tablet Take 4 mg by mouth daily. added in this encounter Active and Recently Administered Medications Times are shown in EDT. Scheduled Medication Order 10/28/2022 10/29/2022 10/30/2022 amoxicillin-clavulanate (AUGMENTIN) 875-125 mg per tablet 1 Tablet (COMPLETED) 1 Tablet, oral, NOW X1, 1 dose, On Sun10/30/22 at 0845, STAT 0923 (Given - Provid er: Chinyere Garza RN) Augmentin 875 mg Tab STARTER PACK (COMPLETED) 1 Package, oral, NOW X1, 1 dose, On Sun10/30/22 at 1045, STAT 1046 (Given - Provid er: Diya Gonzalez RN) iohexoL (OMNIPAQUE 350) solution 100 mL (COMPLETED) 100 mL, intravenous, Once in imaging, 1 dose, Starting on Sun10/30/22 at 0756, Until Sun10/30/22 at 0806, Routine, Imaging Protocol Orders 08 (Given - Provid er: James Rendon) morphine (MS IR) tablet 30 mg (COMPLETED) 30 mg, oral, NOW X1, 1 dose, On Sun10/30/22 at 0745, STAT 0752 (Given - Provid er: Diya Gonzalez RN) documented in this encounter Additional Health Concerns Infection Onset Date Last Indicated Resolved Time Rule-Out C. difficile 10/30/2022 10/30/20222022 13:17 EDT documented as of this encounter Care Teams Pump Station Operator Relationship Specialty Start Date End Date Alina Santacruz MD [address] [place] [phone] PCP - General 08/17/21 documented as of this encounter
--- OUTSIDE RECORDS SUMMARY | 2023-12-31 16:46 | XMS_ITS | Encounter Summary ---
Author Organization [facility] Address [address] [place] [address] Care Team Providers Care Insurance Counsel Name Role Phone Alina Santacruz MD Primary Care Provider [phone] Reason for Visit * Reason Comments Chronic Pain Encounter Details Date Type Department Care Team (Latest Contact Info) Description 06/26/2023 14:30 EST Office Visit [facility] Comprehensive Pain Program - [address] [place] [address] Jacinta Murphy NP [address] [place] [address] Neuropathy (Primary Dx) Social History Tobacco Use Types [...] as of this encounter Progress Notes * Jacinta Murphy NP - 06/26/2023 1430 EST Comprehensive Pain Program [facility] INTAKE Danielle arrived to clinic with support person who joined her in our appointment. Danielle is visible upset, crying and requesting that I resolved her left foot pain. I advise that we offer group treatment options with multimodal approach, however, I am happy to complete a medication consultation, withall recommendations going back to medical home for review. She declines this, stating that she would like an injection. She has a consult scheduled with Leidy Jimenez PA-C in 07/17/2023 which I am hoping will provide her benefit. She is aware that I am happy to see her in the future should she decide, and am happy to discuss our program in more detail. She is aware. Jacinta Murphy NP 06/26/2023 14:58 documented in this encounter Plan of Treatment Upcoming Encounters Date Type Department Care Team (Late st Contact Info) Description 01/07/2024 12:45 EDT Phlebotomy Only [facility] Hematology & Oncology [address] [phone] Blood Doctor, [facility] Hem Onc 01/07/2024 13:30 EDT Office Visit [facility] Hematology & Oncology [address] [phone] Maria Alejandra Jung MD [address] [place] [address], Level [address] [place] [phone] 01/16/2024 14:30 EDT [facility]ointment [facility] Breast Imaging Mammography - [address] [address] documented as of this encounter Visit Diagnoses Diagnosis Neuropathy- Primary Mononeuritis of unspecified site documented in this encounter Care Teams Insurance Counsel Relationship Specialty Start Date End Date Alina Santacruz MD [address] [place] [phone] PCP - General 08/17/21 documented as of this encounter
--- OUTSIDE RECORDS SUMMARY | 2023-12-31 16:47 | XMS_ITS | Encounter Summary ---
Author Organization [facility] Address [address] [place] [address] Care Team Providers Care Sheet Fed Printer Name Role Phone Ayush Ye MD Primary Care Provider Alina Santacruz MD Primary Care Provider [phone] Encounter Details Date Type Department Care Team (Late st Contact Info) Description 07/16/2021 Lab Requisition [facility] Pathology & Laboratory Medicine [address] [phone] Outr Resulting Lab, Provider Social History Tobacco Use Types Packs/Day Years Used Date Smoking Tobacco: Never Assessed Interpersonal Safety Answer Date Record ed Physically [...] Only [facility] Hematology & Oncology [address] [phone] Blood Doctor, [facility] Hem Onc 01/07/2024 13:30 EDT Office Visit [facility] Hematology & Oncology [address] [phone] Maria Alejandra Jung MD [address] [place] [address], Level [address] [place] [phone] 01/16/2024 14:30 EDT Appointment [facility] Breast [place] [address] documented as of this encounter Procedures Procedure Name Priority Date/Time Associated Diagnosis Comments HCV RNA DETECT QUANT Today 07/15/2021 11:00 EST HEPATITIS C AB W REFLEX TO HCV RNA BY PCR Routine 07/15/2021 11:00 EST documented in this encounter Results * HCV RNA DETECT QUANT (07/15/2021 11:00 EST) HCV RNA Qualitative Undetected Undetected 07/20/2021 11:44 EST [facility] Blood VENOUS BLOOD / Unknown 07/15/2021 11:00 EST 07/16/2021 21:30 EST Narrative [facility] - 07/20/2021 11:44 EST New platform in use 12/27/2020 The quantification range of this assay is 15 IU/mL to 100,000,000 IU/mL. Testing was performed using the Rafa HCV test ([employer] with the rafa [id number] System. Provider Outr Resulting Lab CHEMISTRY & BLOOD GAS ORDERABLES Performing Organization Address [facility] Co de Phone Number [facility] [address] [place] [phone] * (ABNORMAL) HEPATITIS C AB W REFLEX TO HCV RNA BY PCR (07/15/2021 11:00 EST) Hep C Antibody Reactive(A ) Negative 07/18/2021 12:31 EST [facility] Comment: Supplemental testing for HCV RNA is ordered to rule out active HCV infection. Blood VENOUS BLOOD / Unknown 07/15/2021 11:00 EST 07/16/2021 21:30 EST Provider Outr Resulting Lab CHEMISTRY & BLOOD GAS ORDERABLES Performing Organization Address [facility]/ZIP Co de Phone Number [facility] [address] [place] [address] [place] [phone] documented in this encounter Visit Diagnoses Not on filedocumented in this encounter Additional Health Concerns Infection Onset Date Last Indicated Resolved Time Rule-Out C. difficile 10/30/2022 10/30/20222022 13:17 EDT documented as of this encounter Care Teams Sheet Fed Printer Relationship Specialty Start Date End Date Ayush Ye MD [address] [place] [phone] PCP - General Family Medicine - Primary Care 11/24/20 08/16/21 Alina Santacruz MD [address] [place] [phone] PCP - General 08/17/21 documented as of this encounter
--- OUTSIDE RECORDS SUMMARY | 2023-12-31 16:47 | XMS_ITS | Encounter Summary ---
Author Organization [facility] Address [address] [place] [address] Care Team Providers Care Glove Parts Cutter Name Role Phone Alina Santacruz MD Primary Care Provider [phone] Encounter Details Date Type Department Care Team (Latest Contact Info) Description 12/07/2021 14:24 EDT [address] Encounter [address] X[address] [place] [address] Discharge Disposition: Home or Self [...] on file documented as of this encounter Medications at [...] 2.5-2.5 mcg/actuation inhaler Inhale as directed daily. lisinopril (PRINIVIL) 2.5 mg tablet Take 2.5 mg by mouth daily. 01/17/2022 documented as of this encounter Discharge Disposition Disposition Code Departure Means Destination Home or Self Care documented in this encounter Plan of Treatment Upcoming Encounters Date Type Department Care Team (Late st Contact Info) Description 01/07/2024 12:45 EDT Phlebotomy Only [facility] Hematology & Oncology - [address] [phone] Blood Doctor, [facility] Hem Onc 01/07/2024 13:30 EDT Office Visit [facility] Hematology & Oncology [address] [phone] Maria Alejandra Jung MD [address] [place] [address], Level [address] [place] [phone] 01/16/2024 14:30 EDT [facility]ointment [facility] Breast Imaging Mammography - [address] [phone] documented as of this encounter Procedures Procedure Name Priority Date/Time Associated Diagnosis Comments XR LUMBAR SPINE 2-3 VIEWS Routine 12/07/2021 14:56 EDT Chronic bilateral low back pain with left-sided sciatica documented in this encounter Results * XR LUMBAR SPINE 2-3 VIEWS (12/07/2021 14:56 EDT) Anatomical Region Laterality Modality Spine Computed Radiogr aphy 12/09/2021 13:5 7 EDT Impressions 12/09/2021 13:57 EDT Findings/Impression: Leftward curvature of the thoracolumbar spine with apex at L2. Straightening of the normal lumbar lordosis. Advanced multilevel degenerative disc disease. Facet arthropathy is also noted. No vertebral body compression fracture. Vascular calcifications are present. Narrative 12/09/2021 13:57 EDT XR LUMBAR SPINE 2-3 VIEWS 12/07/2021 2:25 PM History: low back pain Technique: AP and lateral views of the lumbar spine were performed. Comparisons: MRI 10/14/2019 Procedure Note Jed Jade MD - 12/09/2021 XR LUMBAR SPINE 2-3 VIEWS 12/07/2021 2:25 PM History: low back pain Technique: AP and lateral views of the lumbar spine were performed. Comparisons: MRI 10/14/2019 IMPRESSION Findings/Impression: Leftward curvature of the thoracolumbar spine with apex at L2.Straightening of the normal lumbar lordosis. Advanced multileveldegenerative disc disease. Facet arthropathy is also noted. No vertebralbody compression fracture. Vascular calcifications are present. Ayush Shirley PA-C [employer] DIAGNOSTIC IMAGI NG ORDERABLES documented in this encounter Visit Diagnoses Not on filedocumented in this encounter Care Teams Glove Parts Cutter Relationship Specialty Start Date End Date Alina Santacruz MD [address] [place] [phone] PCP - General 08/17/21 documented as of this encounter
--- OUTSIDE RECORDS SUMMARY | 2023-12-31 16:47 | XMS_ITS | Encounter Summary ---
Author Organization [facility] Address [address] [place] [address] Care Team Providers Care Water Service Dispatcher Name Role Phone Alina Santacruz MD Primary Care Provider [phone] Reason for Referral * Radiology Services (Routine/Next Available) - Authorization Not Required Specialty Diagnoses / Procedures Referred By Contac t Referred To Contact Radiology Diagnoses Chronic bilateral low back pain with left-sided sciatica Procedures MR LUMBAR SPINE WO CONTRAST Ayush Shirley PA-C [address] [place] [address] [facility] Referral ID Status Reason Start Date Expiration Date Visits Requested Visits Authorized [id number] Authorization Not Required 12/07/2021 1 1 Reason for Visit * Radiology Services (Routine/Next Available) - Authorization Not Required Specialty Diagnoses / Procedures Referred By Contac t Referred To Contact Radiology Diagnoses Chronic bilateral low back pain with left-sided sciatica Procedures MR LUMBAR SPINE WO CONTRAST Ayush Shirley PA-C [address] [place] [address] [facility] Referral ID Status Reason Start Date Expiration Date Visits Requested Visits Authorized [id number] Authorization Not Required 12/07/2021 1 1 Encounter Details Date Type Department Care Team (Latest Contact Info) Description 12/28/2021 15:17 EDT Hospital Encounter [facility] MRI [address] [place] [address] Chronic bilateral low back pain with left-sided sciatica Discharge Disposition: Home or Self Care Social [...] suspected to have Coronavirus/COVID-19? No / Unsure 12/18/2021 10:10 EDT documented as of this encounter Medications at [...] Description 01/07/2024 12:45 EDT Phlebotomy Only [facility] Hematology & Oncology [address] [phone] Blood Doctor, [facility] Hem Onc 01/07/2024 13:30 EDT Office Visit [facility] Hematology & Oncology [address] [phone] Maria Alejandra Jung MD [address] [place] [address], [facility], [address] [place] [phone] 01/16/2024 14:30 EDT Appointment [facility] Breast Imaging Mammography - [address] [address] documented as of this encounter Procedures Procedure Name Priority Date/Time Associated Diagnosis Comments MR LUMBAR SPINE WO CONTRAST Routine 12/28/2021 17:10 EDT Chronic bilateral low back pain with left-sided sciatica documented in this encounter Results * MR LUMBAR SPINE WO CONTRAST (12/28/2021 17:10 EDT) Anatomical Region Laterality Modality Spine Magnetic Resonan ce 12/29/2021 16:1 6 EDT Impressions 12/29/2021 16:16 EDT 1. Central zone disc protrusion at L3-L4, , L5-S1 resulting in mild spinal canal stenosis. 2. Varying degrees of neural foraminal stenosis most apparent on the left at L4- 5, and bilaterally at L5-S1 where it is moderate, flattening the exiting left L4 and bilateral L5 nerve roots. I have personally reviewed the images and the above interpretation and agree with the findings. Narrative 12/29/2021 16:16 EDT EXAM: MRI LUMBAR SPINE WO CONTRAST HISTORY: Back pain or radiculopathy, > 6 wks TECHNIQUE: MRI of the lumbar spine without contrast. Structured report code: [id number] COMPARISON: X-ray lumbar spine December 07, 2021 FINDINGS: There are 5 nonrib-bearing lumbar vertebrae. SURGICAL CHANGES: None. ALIGNMENT: Levocurvature curvature of the lumbar spine with the apex at L2-L3 level. 2 mm retrolisthesis of L5 over S1.. BONES: Multilevel degenerative endplate changes. No [...] significant spinal canal stenosis. Moderate left and mild right neural foraminal stenosis. Compression and flattening of left exiting L4 nerve root. No significant facet arthropathy. L5-S1: Circumferential disc bulge with a superimposed central zone disc protrusion without significant spinal canal stenosis. Moderate bilateral neural foraminal stenosis with compression of bilateral exiting L5 nerve roots. No significant facet arthropathy. Procedure Note Sultana Russ MD - 12/29/2021 EXAM: MRI LUMBAR SPINE WO CONTRAST HISTORY: Back pain or radiculopathy, > 6 wks TECHNIQUE: MRI of the lumbar spine without contrast. Structured reportcode: [id number] COMPARISON: X-ray lumbar spine December 07, 2021 FINDINGS: There are 5 nonrib-bearing lumbar vertebrae. SURGICAL CHANGES: None. ALIGNMENT: Levocurvature curvature of the lumbar spine with the apex at L2-L3 level.2 mm retrolisthesis of L5 over S1.. BONES: Multilevel degenerative endplate changes. No concerning lesions. INTERVERTEBRAL DISCS: Multilevel degenerative disc disease with disc height space loss mostapparent at L5-S1. SPINAL CANAL: The conus terminates normally at L1. No abnormality of the cauda equina.No fluid collections. VISIBLE EXTRASPINAL SOFT TISSUES: Right-sided renal cyst. EVALUATION BY LEVEL: T11-T12: No significant posterior disc bulge or spinal canal stenosis. T12-L1: No significant disc bulge. No spinal canal stenosis. No neuralforaminal stenosis. L1-L2: Circumferential disc bulge without significant spinal canalstenosis. Mild right neural foraminal narrowing. No left neural foraminalstenosis. L2-L3: Circumferential disc bulge with no significant spinal canalstenosis. Mild right neural foraminal stenosis. No significant left neuralforaminal stenosis. Mild facet arthropathy. L3-L4: Circumferential disc bulge with a superimposed central zone discprotrusion and dorsal epidural fat, resulting in mild spinal canalstenosis. Mild left neural foraminal stenosis. Mild facet arthropathy. Nosignificant right neural foraminal narrowing. L4-L5: Circumferential disc bulge without significant spinal canalstenosis. Moderate left and mild right neural foraminal stenosis.Compression and flattening of left exiting L4 nerve root. No significantfacet arthropathy. L5-S1: Circumferential disc bulge with a superimposed central zone discprotrusion without significant spinal canal stenosis. Moderate bilateralneural foraminal stenosis with compression of bilateral exiting L5 nerveroots. No significant facet arthropathy. IMPRESSION 1. Central zone disc protrusion at L3-L4, , L5-S1 resulting in mild spinalcanal stenosis. 2. Varying degrees of neural foraminal stenosis most apparent on the leftat L4- 5, and bilaterally at L5-S1 where it is moderate, flattening theexiting left L4 and bilateral L5 nerve roots. I have personally reviewed the images and the above interpretation andagree with the findings. Ayush Shirley PA-C [employer] MRI ORDERABLES documented in this encounter Visit Diagnoses Diagnosis Chronic bilateral low back pain with left-sided sciatica documented in this encounter Care Teams Water Service Dispatcher Relationship Specialty Start Date End Date Alina Santacruz MD [address] [place] [phone] PCP - General 08/17/21 documented as of this encounter
--- OUTSIDE RECORDS SUMMARY | 2023-12-31 16:47 | XMS_ITS | Encounter Summary ---
Author Organization [facility] Address [address] [place] [address] Care Team Providers Care Nuclear Powerplant Mechanic Name Role Phone Gemma Arreola NP Primary Care Provider [phone] Reason for Visit * (Routine) - Receiving Office to Obtain Authorization Specialty Diagnoses / Procedures Referred By Radha casey Referred To Contact Procedures US OUTSIDE IMAGES BREAST Unknown, Provider, Referral ID Status Reason Start Date Expiration Date Visits Requested Visits Authorized [id number] Receiving Office to Obtain Authorization 01/01/2021 1 1 Encounter Details Date Type Department Care Team (Latest Contact Info) Description 05/26/2020 Hospital Encounter [facility] Secondary [place] Discharge Disposition: Home or Self Care Social [...] on file documented as of this encounter Discharge Disposition Disposition Code Departure Means Destination Home or Self Care documented in this encounter Plan of Treatment Upcoming Encounters Date Type Department Care Team (Late st Contact Info) Description 01/07/2024 12:45 EDT Phlebotomy Only [facility] Hematology & Oncology [address] [phone] Blood Doctor, [facility] Hem Onc 01/07/2024 13:30 EDT Office Visit [facility] Hematology & Oncology [address] [phone] Maria Alejandra Jung MD [address] [facility], [facility], [address] [place] [phone] 01/16/2024 14:30 EDT Appointment [facility] Breast Imaging Mammography - [facility] [address] [place], [place] [phone] documented as of this encounter Procedures Procedure Name Priority Date/Time Associated Diagnosis Comments US OUTSIDE IMAGES BREAST Routine 01/01/2021 12:06 EDT documented in this encounter Results * US OUTSIDE IMAGES BREAST (01/01/2021 12:06 EDT) Narrative 01/01/2021 12:06 EDT This is a non-reportable exam. Provider Unknown MD [facility] OTHER IMAGING OR DERABLES documented in this encounter Visit Diagnoses Not on filedocumented in this encounter Care Teams Nuclear Powerplant Mechanic Relationship Specialty Start Date End Date Gemma Arreola, CARMELO [address] [place] [phone] PCP - General 11/25/10 11/23/20 documented as of this encounter
--- OUTSIDE RECORDS SUMMARY | 2023-12-31 16:47 | XMS_ITS | Encounter Summary ---
Author Organization [facility] Address [address] [place] [address] Care Team Providers Care President + Publisher Name Role Phone Alina Santacruz MD Primary Care Provider [phone] Encounter Details Date Type Department Care Team (Late Contact Info) Description 10/08/2021 Lab Requisition [facility] Pathology & Laboratory Medicine [address] [address] Outr Resulting Lab, Provider Social History Tobacco Use Types Packs/Day Years Used Date Smoking Tobacco: Every Day Cigarettes 0.5 21 Interpersonal Safety Answer Date Record ed Physically [...] Only [facility] Hematology & Oncology [address] [address] Blood Doctor, [facility] Hem Onc 01/07/2024 13:30 EDT Office Visit [facility] Hematology & Oncology [address] [address] Maria Alejandra Jung MD [address] [place] [address], [facility] [address] [place] [phone] 01/16/2024 14:30 EDT [facility] Breast Imaging Mammography - [address] [address] documented as of this encounter Procedures Procedure Name Priority Date/Time Associated Diagnosis Comments HCV RNA DETECT QUANT Today 10/07/2021 15:37 EDT HEPATITIS C AB W REFLEX TO HCV RNA BY PCR Routine 10/07/2021 15:37 EDT documented in this encounter Results * HCV RNA DETECT QUANT (10/07/2021 15:37 EDT) Pathologist [facility] HCV RNA Qualitative Undetected Undetected 10/12/2021 15:31 EDT [facility] Blood VENOUS BLOOD / Unknown 10/07/2021 15:37 EDT 10/08/2021 21:53 EDT Narrative [facility] - 10/12/2021 15:31 EDT The quantification range of this assay is 15 IU/mL to 100,000,000 IU/mL. Testing was performed using the Rafa HCV test ([employer] with the rafa [employer] System. Provider Outr Resulting Lab CHEMISTRY & BLOOD GAS ORDERABLES Performing Organization Address City/[facility]/ZIP Co de Phone Number [facility] [address] [place] [phone] * (ABNORMAL) HEPATITIS C AB W REFLEX TO HCV RNA BY PCR (10/07/2021 15:37 EDT) Pathologist [facility] Hep C Antibody Reactive(A ) Negative 10/10/2021 12:36 EDT [facility] Comment: Supplemental testing for HCV RNA is ordered to rule out active HCV infection. Blood VENOUS BLOOD / Unknown 10/07/2021 15:37 EDT 10/08/2021 21:53 EDT Provider Outr Resulting Lab CHEMISTRY & BLOOD GAS ORDERABLES Performing Organization Address City/[facility]/ZIP Co de Phone Number [facility] [address] [place] [address] documented in this encounter Visit Diagnoses Not on filedocumented in this encounter Additional Health Concerns Infection Onset Date Last Indicated Resolved Time Rule-Out C. difficile 10/30/2022 10/30/20222022 13:17 EDT documented as of this encounter Care Teams President + Publisher Relationship Specialty Start Date End Date Alina Santacruz MD [address] [place] [phone] PCP - General 08/17/21 documented as of this encounter
--- OUTSIDE RECORDS SUMMARY | 2023-12-31 16:47 | XMS_ITS | Encounter Summary ---
Author Organization [facility] Address [address] [place] [address] Care Team Providers Care Adhesive Bandage Machine Operator Name Role Phone Alina Santacruz MD Primary Care Provider [phone] Reason for Referral * Cardiology (Routine/Next Available) - Closed Specialty Diagnoses / Procedures Referred By Radha t Referred To Contact Nuclear Medicine Diagnoses Chest pain, unspecified type Procedures NM CARD SPECT NUCLEAR STRESS CHG MYOCARDIAL SPECT MULTIPLE STUDIES Alina Santacruz MD [facility] [place] [address] [address] [facility] Referral ID Status Reason Start Date Expiration Date Visits Re quested Visits Authorized [id number] Closed 08/16/2021 06/03/2022 1 1 Reason for Visit * Cardiology (Routine/Next Available) - Closed Specialty Diagnoses / Procedures Referred By Radha casey Referred To Contact Nuclear Medicine Diagnoses Chest pain, unspecified type Procedures NM CARD SPECT NUCLEAR STRESS CHG MYOCARDIAL SPECT MULTIPLE STUDIES Alina Santacruz MD [address] [address] [facility] Referral ID Status Reason Start Date Expiration Date Visits Re quested Visits Authorized [id number] Closed 08/16/2021 06/03/2022 1 1 Encounter Details Date Type Department Care Team (Latest Contact Info) Description 08/25/2021 9:30 EDT [facility] Rad[facility] Nuclear Medicine and PET - [address] [id number] Chest pain, unspecified type Discharge Disposition: Home or Self Care Social [...] Sig Dispensed Refills Start Date End Date atenoloL (TENORMIN) 100 mg tablet Take 1 Tablet by mouth daily. 06/17/2021 documented as of this encounter Discharge Disposition Disposition Code Departure Means Destination Home or Self Care documented in this encounter Plan of Treatment Upcoming Encounters Date Type Department Care Team (Late st Contact Info) Description 01/07/2024 12:45 EDT Phlebotomy Only [facility] Hematology & Oncology [address] [id number] Blood Doctor, [facility] Hem Onc 01/07/2024 13:30 EDT Office Visit [facility] Hematology & Oncology [address] 1687[address] Maria Alejandra Jung MD [address] [place] [address], Level 2 [place] [phone] 01/16/2024 14:30 EDT [facility]ment [facility] M[facility]ography [address] [phone] documented as of this encounter Procedures Procedure Name Priority Date/Time Associated Diagnosis Comments NM CARD SPECT PHARM STRESS ONLY SINGLE STUDY Routine 08/25/2021 12:18 EDT Chest pain, unspecified type documented in this encounter Results * NM CARD SPECT PHARM STRESS ONLY SINGLE STUDY (08/25/2021 12:18 EDT) Target HR 156 bpm MCKESSON N MIS MERGE CARDIO Baseline HR 74 bpm MCKESSON NMIS MERGE CARDIO Baseline Systolic BP 138 mmHg MCKESSON NMIS MERGE CARDIO Baseline Diastolic BP 70 mmHg MCESPINOZASON NMIS MERGE CARDIO Peak HR 104 bpm MONTEZ N MIS MERGE CARDIO Percent HR 67 MCKESSON NMIS MERGE CARDIO Systolic BP 120 mmHg MCKESSON NMIS MERGE CARDIO Peak Diastolic BP 56 mmHg SUNILSON NMIS MERGE CARDIO Recovery HR 86 bpm SUNILSON NMIS MERGE CARDIO Recovery BP 129 mmHg SUNILSON NMIS MERGE CARDIO Recovery Diastolic BP 71 mmHg MONTEZ NMIS MERGE CARDIO Pre test likelihood of obstructive CAD 11 MCKESSON NMI S MERGE CARDIO Nuc Stress EF 58 % MCKESDat ON NMIS MERGE CARDIO Anatomical Region Laterality Modality Chest Nuclear Medicine Narrative 08/25/2021 14:57 EDT ?Perfusion: There was no myocardial perfusion defect post stress. ?Function: Global LV function is normal. Post-stress ejection fraction is 58 %. ?Stress ECG: Stress ECG was negative. ?Stress data: Maximal heart rate during stress was 104 (67 % of MPHR). Patient experienced no chest pain. Stress Function Comments Global LV function was normal. Global RV function was normal. Post-stress ejection fraction was 58 %. The left ventricle size was normal at stress. The right ventricle size was normal at stress. There were no regional wall motion abnormalities. Baseline ECG There was normal sinus rhythm. Non-specific ST changes were noted at baseline. There was no ectopy noted on the baseline ECG. Stress ECG There were no significant ST segment deviations noted during stress. There were no significant arrhythmias noted during stress. Recovery ECG There were no significant arrhythmias noted during recovery. Result ECG Stress ECG was negative. HPI and Indications Indications: atypical angina. History: 66 yr old female with no known CAD. Pt reports that she is having some sharp pains and fluttering feeling while at rest, that spontaneously resolve. Patient Status Risk Factors Asthma, former smoker and hypertension. Stress Data Procedure: initial setup. A baseline ECG was recorded, ECG tracings were obtained using the Q-Stress 1 machine. Surface ECG leads and manual cuff blood pressure measurements were monitored. Heart sounds: Normal. Lung sounds: Normal. Regadenoson. Baseline blood pressure was normal. Pre test likelihood of obstructive CAD: 11 . Patient experienced no chest pain. The patient tolerated the procedure well and was discharged from the lab. Maximal heart rate during stress was 104 (67 % of MPHR). Medications Beta blockers and diuretics. Perfusion Defect There was no myocardial perfusion defect post stress. Image Protocol Myocardial perfusion imaging using SPECT/CT was performed. The study was a stress only study. Attenuation correction was used. The patient was imagined in the supine position. Images acquired post stress were processed and reviewed. Nuc Impression Normal study after pharmacological stress. Perfusion Scoring Stress Summed Score: 0 Percent Normal: 0.00% The left ventricular perfusion is normal. Perfusion Scores: SRS Score: N/A Percentage Abnormal: N/A Perfusion Scores: SSS Score: 0 Percentage Abnormal: 0.00% Perfusion Scores: SDS Score: N/A Percentage Abnormal: N/A Alina Santacruz MD CARDIAC NM ORDERABLE S documented in this encounter Visit Diagnoses Diagnosis Chest pain, unspecified type documented in this encounter Administered Medications Inactive Administered Medications - up to 3 most recent administrations Medication Order MAR Action Action Date Dose Rate Site technetium (Tc-99m) sestamibi injection 8 millicurie 8 millicurie, radiopharm IV, NOW X1, 1 dose, On Geetha 08/25/21 at 1045, Routine, Imaging Protocol Orders Given 08/25/2021 10:20 EDT 8.6 millicuries Right Forearm documented in this encounter Orders Medications Ordered That Atif ht Not Have Been Administered Count Last Ordered Date First Ordered Date technetium (Tc-99m) sestamib i injection 24 millicurie 1 08/25/2021 documented in this encounter Care Teams Adhesive Bandage Machine Operator Relationship Specialty Start Date End Date Alina Santacruz MD [address] [place] [phone] PCP - General 08/17/21 documented as of this encounter
--- OUTSIDE RECORDS SUMMARY | 2023-12-31 16:47 | XMS_ITS | Encounter Summary ---
Author Organization [facility] Address [address] [place] [address] Care Team Providers Care Clinical Genetics Laboratory Chief Name Role Phone Alina Santacruz MD Primary Care Provider [phone] Encounter Details Date Type Department Care Team (Latest Contact Info) Description 12/07/2021 14:25 EDT - 12/07/2021 23:59 EDT Hospital Encounter [address] X[address] [place] [address] Discharge Disposition: Home or Self [...] Only [facility] Hematology & Oncology - [address] [phone] Blood Doctor, [facility] Hem Onc 01/07/2024 13:30 EDT Office Visit [facility] Hematology & Oncology [address] [phone] Maria Alejandra Jung MD [address] [place] [address], [address] [place] [phone] 01/16/2024 14:30 EDT [facility]ointment [facility] Breast Imaging Mammography - [address] [phone] documented as of this encounter Procedures Procedure Name Priority Date/Time Associated Diagnosis Comments XR CERVICAL SPINE 4-5 VIEWS Routine 12/07/2021 14:57 EDT Neck pain documented in this encounter Results * XR CERVICAL SPINE 4-5 VIEWS (12/07/2021 14:57 EDT) Anatomical Region Laterality Modality Left Computed Radiogr aphy 12/09/2021 13:5 8 EDT Impressions 12/09/2021 13:58 EDT Findings/Impression: Straightening of the normal cervical lordosis. Trace anterolisthesis of C4 on C5. There is increased anterolisthesis of C2 on C3, C3 on C4, C4 on C5, and C5 on C6 with flexion which reduces in extension. Mild multilevel degenerative disc disease and facet arthropathy. No apparent fracture. Narrative 12/09/2021 13:58 EDT XR CERVICAL SPINE 4-5 VIEWS 12/07/2021 2:30 PM History: neck pain Technique: AP, neutral lateral, lateral flexion, and lateral extension views of the cervical spine were performed. Comparisons: None Procedure Note Jed Jade MD - 12/09/2021 XR CERVICAL SPINE 4-5 VIEWS 12/07/2021 2:30 PM History: neck pain Technique: AP, neutral lateral, lateral flexion, and lateral extensionviews of the cervical spine were performed. Comparisons: None IMPRESSION Findings/Impression: Straightening of the normal cervical lordosis. Trace anterolisthesis of C4on C5. There is increased anterolisthesis of C2 on C3, C3 on C4, C4 on C5,and C5 on C6 with flexion which reduces in extension. Mild multileveldegenerative disc disease and facet arthropathy. No apparent fracture. Ayush Shirley PA-C IMG DIAGNOSTIC IMAGI NG ORDERABLES documented in this encounter Visit Diagnoses Not on filedocumented in this encounter Care Teams Clinical Genetics Laboratory Chief Relationship Specialty Start Date End Date Alina Santacruz MD [address] [place] [phone] PCP - General 08/17/21 documented as of this encounter
--- OUTSIDE RECORDS SUMMARY | 2023-12-31 16:47 | XMS_ITS | Encounter Summary ---
Author Organization [facility] Address [address] [place] [address] Care Team Providers Care Bottle And Glass Inspector Name Role Phone Gemma Arreola NP Primary Care Provider Ayush Ye MD Primary Care Provider Alina Santacruz MD Primary Care Provider Encounter Details Date Type Department Care Team (Late Contact Info) Description 06/21/2020 Lab Requisition [facility] Pathology & Laboratory Medicine - [address] [address] Outr Resulting Lab, Provider Social History Tobacco [...] Upcoming Encounters Date Type Department Care Team ([facility] Contact Info) Description 01/07/2024 12:45 EDT Phlebotomy Only [facility] Hematology & Oncology - [address] [phone] Blood Doctor, [facility] Hem Onc 01/07/2024 13:30 EDT Office Visit [facility] Hematology & Oncology [address] [phone] Maria Alejandra Jung MD [address] [facility] 2 [place] [phone] 01/16/2024 14:30 EDT Appointment [facility] Breast [place] [address] documented as of this encounter Procedures Procedure Name Priority Date/Time Associated Diagnosis Comments ZZCOVID-19 TEST [facility] PCR Today 06/21/2020 15:10 EST COVID-19 TESTING Routine 06/21/2020 15:1 0 EST documented in this encounter Results * COVID-19 TEST [facility] PCR (06/21/2020 15:10 EST) Swab ENTIRE NASOPHARYNX / Unknown 06/21/2020 15:10 EST 06/21/2020 20:32 EST Provider Outr Resulting Lab MICROBIOLOGY - GENERAL ORDERABLES Performing Organization Address City/State/[facility] Co de Phone Number [facility] [address] [place] [address] * COVID-19 TESTING (06/21/2020 15:10 EST) COVID-19 rt-PCR Result Negative Negative 06/22/2020 13:23 EST [facility] Comment: Negative results do not preclude 2019-nCoV infection and should not be used as the sole basis for treatment or other patient management decisions. Negative results must be combined with clinical observations, patient history, and epidemiological information. This test was developed and its performance characteristics determined by [facility]. It has not been cleared or approved by the US Food and Drug Administration. FDA does not require this test to go through premarket FDA review. This test is used for clinical purposes. It should not be regarded as investigational or for research. This laboratory is certified under the Clinical Laboratory Improvement Amendments (CLIA) as qualified to perform high complexity clinical laboratory testing. This test is based on the [facility] COVID-19 Emergency Use Authorization (EUA) assay, with minor modification as defined by the FDA Performed on the [employer] 7 Flex RT-PCR System. Performing Lab [facility] 06/22/2020 13:23 EST [facility] Swab 06/21/2020 15:1 0 EST 06/21/2020 20:32 EST Provider Outr Resulting Lab MICROBIOLOGY - GENERAL ORDERABLES Performing Organization Address City/State/[facility] Co de Phone Number [facility] [address] [place] [address] documented in this encounter Visit Diagnoses Not on filedocumented in this encounter Additional Health Concerns Infection Onset Date Last Indicated Resolved Time Rule-Out C. difficile 10/30/2022 10/30/20222022 13:17 EDT documented as of this encounter Care Teams Bottle And Glass Inspector Relationship Specialty Start Date End Date Gemma Arreola, RN SUPPORT SERVICES [address] [facility],[address] [phone] PCP - General 11/25/10 11/23/20 Ayush Ye MD [address] [place] [phone] PCP - General Family Medicine - Primary Care 11/24/20 08/16/21 Alina Santacruz MD [address] [phone] PCP - General 08/17/21 documented as of this encounter
--- OUTSIDE RECORDS SUMMARY | 2023-12-31 16:47 | XMS_ITS | Encounter Summary ---
Author Organization [facility] Address [address] [place] [address] Care Team Providers Care Chief Medical Director Name Role Phone Ayush Ye MD Primary Care Provider Reason for Visit * Reason Onset Date Comments Appointment Related 04/27/2021 Encounter Details Date Type Department Care Team (Late Contact Info) Description 04/27/2021 [facility] Mammography - [address] [phone] Alejandra Santillan Appointment Related Social History Tobacco Use Types Packs/Day Years Used Date Smoking Tobacco: Never Assessed Interpersonal Safety Answer Date Record ed Physically Hurt Never 01/04/2020 Verbally Threaten Not on file 01/04/2020 Sex and Gender Information Value Date Recorded Sex Assigned at Not on file Gender Identity Female 08/17/2021 11:20 EDT Sexual Orientation Not on file documented as of this encounter Miscellaneous Notes * Telephone Encounter - Alejandra Santillan - 04/27/2021 1724 EST LM for pt to call back to schedule: - dx refugio left breast mammo documented in this encounter Plan of Treatment Upcoming Encounters Date Type Department Care Team (Late Contact Info) Description 01/07/2024 12:[address] [facility] Hematology & Oncology [address] [phone] Blood Doctor, [facility] Hem Onc 01/07/2024 13:[address] [facility] Hematology & Oncology [address] [address] Maria Alejandra Jung MD [address] [facility], Level [address] [place] [phone] 01/16/2024 14:30 EDT [facility]ointment [facility] Breast Imaging Mammography - [address] [phone] documented as of this encounter Visit Diagnoses Not on filedocumented in this encounter Care Teams Chief Medical Director Relationship Specialty Start Date End Date Ayush Ye MD [address] [place] [phone] PCP - General Family Medicine - Primary Care 11/24/20 08/16/21 documented as of this encounter
--- OUTSIDE RECORDS SUMMARY | 2023-12-31 16:47 | XMS_ITS | Encounter Summary ---
Author Organization [facility] Address [address] [place] [address] Care Team Providers Care Home Care Consultant Name Role Phone Alina Santacruz MD Primary Care Provider [phone] Encounter Details Date Type Department Care Team (Latest Contact Info) Description 02/20/2022 14:00 EDT - 02/20/2022 14:04 EDT Hospital Encounter [address] Xray [address] [place], [place] [phone] Low back pain, unspecified back pain laterality, unspecified chronicity, unspecified whether sciatica present Discharge Disposition: Home or Self Care Social [...] tablet Take 1 Tablet by mouth daily. fosinopriL-hydrochloroth iazide (MONOPRIL-HCT) 10-12.5 mg per tablet Take 1 [...] Info) Description 01/07/2024 12:45 EDT Phlebotomy Only [facility] Hematology & Oncology [address] [phone] Blood Doctor, [facility] Hem Onc 01/07/2024 13:30 EDT Office Visit [facility] Hematology & Oncology [address] [phone] Maria Alejandra Jung MD [address] [place] [address], Level [address] [place] [phone] 01/16/2024 14:30 EDT [facility]ointment [facility] Breast Imaging Mammography - [address] [phone] documented as of this encounter Procedures Procedure Name Priority Date/Time Associated Diagnosis Comments XR ENTIRE SPINE 2-3 VIEWS Routine 02/20/2022 14:55 EDT Low back pain, unspecified back pain laterality, unspecified chronicity, unspecified whether sciatica present documented in this encounter Results * XR ENTIRE SPINE 2-3 VIEWS (02/20/2022 14:55 EDT) Anatomical Region Laterality Modality Spine Computed Radiogr aphy 02/21/2022 17:0 7 EDT Impressions 02/21/2022 17:07 EDT Findings/Impression: Rightward curvature of the thoracic spine and leftward curvature of the lumbar spine. There is positive sagittal balance. No new vertebral body height loss. Multilevel degenerative changes are most significant in the cervical and lumbar spine. Vascular calcifications are noted. Narrative 02/21/2022 17:07 EDT XR ENTIRE SPINE 2-3 VIEWS 02/20/2022 2:00 PM History: low back and neck pain Technique: PA and lateral views of the entire spine were performed. Comparisons: MRI 12/28/2021 Procedure Note Jed Jade MD - 02/21/2022 XR ENTIRE SPINE 2-3 VIEWS 02/20/2022 2:00 PM History: low back and neck pain Technique: PA and lateral views of the entire spine were performed. Comparisons: MRI 12/28/2021 IMPRESSION Findings/Impression: Rightward curvature of the thoracic spine and leftward curvature of thelumbar spine. There is positive sagittal balance. No new vertebral bodyheight loss. Multilevel degenerative changes are most significant in thecervical and lumbar spine. Vascular calcifications are noted. Rangel Sheriff MD IMG DIAGNOSTIC IMAG ING ORDERABLES documented in this encounter Visit Diagnoses Diagnosis Low back pain, unspecified back pain laterality, unspecified chronicity, unspecified whether sciatica present documented in this encounter Care Teams Home Care Consultant Relationship Specialty Start Date End Date Alina Santacruz MD [address] [place] [phone] PCP - General 08/17/21 documented as of this encounter
--- OUTSIDE RECORDS SUMMARY | 2023-12-31 16:47 | XMS_ITS | Encounter Summary ---
Author Organization [facility] Address [address] [place] [address] Care Team Providers Care Counter Intelligence Technician Name Role Phone Gemma Arreola NP Primary Care Provider Ayush Ye MD Primary Care Provider Alina Santacruz MD Primary Care Provider Encounter Details Date Type Department Care Team (Late Contact Info) Description 06/18/2020 Lab Requisition [facility] Pathology & Laboratory Medicine - [address] [address] Outr Resulting Lab, Provider Social History Tobacco [...] Upcoming Encounters Date Type Department Care Team ([facility] Contact Info) Description 01/07/2024 12:45 EDT Phlebotomy Only [facility] Hematology & Oncology - [address] [phone] Blood Doctor, [facility] Hem Onc 01/07/2024 13:30 EDT Office Visit [facility] Hematology & Oncology [address] [phone] Maria Alejandra Jung MD 111 [facility] 2 [place] [phone] 01/16/2024 14:30 EDT Appointment [place] [place] [address] documented as of this encounter Procedures Procedure Name Priority Date/Time Associated Diagnosis Comments ZZCOVID-19 TEST [facility] PCR Today 06/18/2020 15:00 EST COVID-19 TESTING Routine 06/18/2020 15:0 0 EST documented in this encounter Results * COVID-19 TEST [facility] PCR (06/18/2020 15:00 EST) Swab ENTIRE NASOPHARYNX / Unknown 06/18/2020 15:00 EST 06/18/2020 20:52 EST Provider Outr Resulting Lab MICROBIOLOGY - GENERAL ORDERABLES Performing Organization Address City/State/[facility] Co de Phone Number [facility] [address] [place] [address] * COVID-19 TESTING (06/18/2020 15:00 EST) COVID-19 rt-PCR Result Negative Negative 06/19/2020 16:37 EST [facility] Comment: Negative results do not preclude 2019-nCoV infection and should not be used as the sole basis for treatment or other patient management decisions. Negative results must be combined with clinical observations, patient history, and epidemiological information. This test was developed and its performance characteristics determined by [facility]. It has not been cleared or approved [...] testing. This test is based on the [facility] COVID-19 Emergency Use Authorization (EUA) assay, with minor modification as defined by the FDA Performed on the [employer] 7 Flex RT-PCR System. Performing Lab [facility] 06/19/2020 16:37 EST [facility] Swab 06/18/2020 15:0 0 EST 06/18/2020 20:52 EST Provider Outr Resulting Lab MICROBIOLOGY - GENERAL ORDERABLES Performing Organization Address City/State/[facility] Co de Phone Number [facility] [address] [place] [address] documented in this encounter Visit Diagnoses Not on filedocumented in this encounter Additional Health Concerns Infection Onset Date Last Indicated Resolved Time Rule-Out C. difficile 10/30/2022 10/30/20222022 13:17 EDT documented as of this encounter Care Teams Counter Intelligence Technician Relationship Specialty Start Date End Date Gemma Arreola, PORTFOLIO ARCHITECT [address] [phone] PCP - General 11/25/10 11/23/20 Ayush Ye MD [address] [place] [phone] PCP - General Family Medicine - Primary Care 11/24/20 08/16/21 Alina Santacruz MD [address] [phone] PCP - General 08/17/21 documented as of this encounter
--- OUTSIDE RECORDS SUMMARY | 2023-12-31 16:47 | XMS_ITS | Encounter Summary ---
Author Organization [facility] Address [address] [place] [address] Care Team Providers Care Textile Dyer Name Role Phone Alina Santacruz MD Primary Care Provider [phone] Encounter Details Date Type Department Care Team (Late Contact Info) Description 02/17/2022 Orders Only [facility] Spine Program - [address] [address] Rangel Sheriff MD [address] [place] [phone] Low back pain, unspecified back pain laterality, unspecified chronicity, unspecified whether sciatica present (Primary Dx) Social History Tobacco Use Types [...] Only [facility] Hematology & Oncology [address] [phone] Blood Doctor, [facility] Hem Onc 01/07/2024 13:30 EDT Office Visit [facility] Hematology & Oncology [address] [address] Maria Alejandra Jung MD [address] [facility], [facility], Level [address] [place] [phone] 01/16/2024 14:30 EDT Appointment [facility] Breast Imaging Mammography - [address] [address] documented as of this encounter Results * XR LUMBAR SPINE BENDING VIEWS, 2 OR 3 VIEWS (02/20/2022 14:56 EDT) Anatomical Region Laterality Modality Computed Radiogr aphy 02/21/2022 17:0 8 EDT Impressions 02/21/2022 17:08 EDT Findings/Impression: No evidence of dynamic instability with flexion and extension allowing for differences in projection. Vascular calcifications are present. Multilevel degenerative changes are again noted. Narrative 02/21/2022 17:08 EDT XR LUMBAR SPINE BENDING VIEWS, 2 OR 3 VIEWS 02/20/2022 2:05 PM History: low back pain Technique: Flexion and extension views of the lumbar spine were performed. Comparisons: MRI 12/28/2021 Procedure Note Jed Jade MD - 02/21/2022 XR LUMBAR SPINE BENDING VIEWS, 2 OR 3 VIEWS 02/20/2022 2:05 PM History: low back pain Technique: Flexion and extension views of the lumbar spine wereperformed. Comparisons: MRI 12/28/2021 IMPRESSION Findings/Impression: No evidence of dynamic instability with flexion and extension allowing fordifferences in projection. Vascular calcifications are present. Multileveldegenerative changes are again noted. Rangel Sheriff MD IMG DIAGNOSTIC IMAG ING ORDERABLES * XR ENTIRE SPINE 2-3 VIEWS (02/20/2022 [...] pain laterality, unspecified chronicity, unspecified whether sciatica present- Primary Low back pain, unspecified back pain laterality, unspecified chronicity, unspecified whether sciatica present Low back pain, unspecified back pain laterality, unspecified chronicity, unspecified whether sciatica present documented in this encounter Care Teams Textile Dyer Relationship Specialty Start Date End Date Alina Santacruz MD [address] [place] [phone] PCP - General 08/17/21 documented as of this encounter
--- OUTSIDE RECORDS SUMMARY | 2023-12-31 16:47 | XMS_ITS | Encounter Summary ---
Author Organization [facility] Address [address] [place] [address] Care Team Providers Care Stereotyper Name Role Phone Alina Santacruz MD Primary Care Provider [phone] Reason for Referral * Radiology Services (Routine/Next Available) - Authorization Not Required Specialty Diagnoses / Procedures Referred By Contac t Referred To Contact Radiology Diagnoses Cervical myelopathy ([facility]) Procedures MR CERVICAL SPINE WO CONTRAST Ayush Shirley PA-C [address] [place] [phone] [facility] Referral ID Status Reason Start Date Expiration Date Visits Requested Visits Authorized [id number] Authorization Not Required 12/07/2021 1 1 Reason for Visit * Radiology Services (Routine/Next Available) - Authorization Not Required Specialty Diagnoses / Procedures Referred By Contac t Referred To Contact Radiology Diagnoses Cervical myelopathy ([facility]) Procedures MR CERVICAL SPINE WO CONTRAST Ayush Shirley PA-C [address] [place] [address] [facility] Referral ID Status Reason Start Date Expiration Date Visits Requested Visits Authorized [id number] Authorization Not Required 12/07/2021 1 1 Encounter Details Date Type Department Care Team (Latest Contact Info) Description 12/28/2021 15:18 EDT - 12/28/2021 23:59 EDT Hospital Encounter [facility] MRI [address] [place] [address] Cervical myelopathy ([facility]) ([facility]) ([facility]) Discharge Disposition: Home or Self Care Social [...] Only [facility] Hematology & Oncology [address] [phone] Blood Doctor, [facility] Hem Onc 01/07/2024 13:30 EDT Office Visit [facility] Hematology & Oncology [address] [phone] Maria Alejandra Jung MD [address] [place] [address], [address] [place] [phone] 01/16/2024 14:30 EDT Appointment [facility] Breast Imaging Mammography [address] [phone] documented as of this encounter Procedures Procedure Name Priority Date/Time Associated Diagnosis Comments MR CERVICAL SPINE WO CONTAST Routine 12/28/2021 17:37 EDT Cervical myelopathy ([facility]) ([facility]) ([facility]) documented in this encounter Results * MR CERVICAL SPINE WO CONTRAST (12/28/2021 17:37 EDT) Anatomical Region Laterality Modality Spine Magnetic Resonan ce 12/29/2021 16:3 5 EDT Impressions 12/29/2021 16:35 EDT 1. Posterior odontoid cortical irregularity, which may be sequela of a prior traumatic injury. 2. C1 level spinal cord dorsal and right lateral abnormal T2 hyperintense signal changes suggestive of myelomalacia, likely sequela of a traumatic injury. 3. Multilevel mild spinal canal stenosis with mild spinal canal stenosis at C5- C6. 4. Varying degrees of neural foraminal stenosis most apparent at C5-C6 on the right. I have personally reviewed the images and the above interpretation and agree with the findings. Narrative 12/29/2021 16:35 EDT EXAM: MRI CERVICAL SPINE WO CONTRAST HISTORY: Neck pain, chronic, degenerative changes on xray TECHNIQUE: MRI of the cervical spine without contrast. Structured report code: [id number] COMPARISON: Cervical spine radiograph December 07, 2021. FINDINGS: SURGICAL CHANGES: None. ALIGNMENT: Normal. BONES: Posterior odontoid cortical irregularity, possibly representing chronic fracture deformity. Multilevel degenerative endplate changes. No concerning lesions. INTERVERTEBRAL DISCS: No significant abnormalities. SPINAL CANAL AND SPINAL CORD: Cervical spinal cord posterior and right lateral T2 hyperintense signal changes at C1 level, most likely representing myelomalacia, possibly secondary to a post traumatic injury. .No fluid collections. VISIBLE EXTRASPINAL SOFT TISSUES AND INTRACRANIAL CONTENTS: Unremarkable. Normal positioning of the cerebellar tonsils. EVALUATION BY LEVEL: C1-C2: No spinal canal stenosis. No neural foraminal stenosis. C2-C3: Disc osteophyte complex with mild spinal canal stenosis. No significant neural foraminal stenosis. No facet arthropathy. C3-C4: Shallow disc bulge without significant spinal canal stenosis. No significant neural foraminal stenosis. No facet arthropathy. C4-C5: central zone disc protrusion, minimally flattening the central ventral thecal sac. No significant spinal canal stenosis. Mild left neural foraminal stenosis. No significant right neural foraminal stenosis. No facet arthropathy. C5-C6: Disc bulge and endplate osteophytosis as well as ligamentum flavum hypertrophy contributing to mild spinal canal stenosis. Moderate right neural foraminal stenosis. Mild left neural foraminal stenosis. No facet arthropathy. C6-C7: Disc bulge and mild spinal canal stenosis. Moderate left neural foraminal stenosis. No significant right neural foraminal stenosis. No facet arthropathy. C7-T1: No significant spinal canal stenosis. No significant neural foraminal stenosis. No facet arthropathy. T1-T2: No significant disc bulge or spinal canal stenosis. No neural foraminal stenosis. No facet arthropathy. Procedure Note Sultana Russ MD - 12/29/2021 EXAM: MRI CERVICAL SPINE WO CONTRAST HISTORY: Neck pain, chronic, degenerative changes on xray TECHNIQUE: MRI of the cervical spine without contrast. Structured reportcode: [id number] COMPARISON: Cervical spine radiograph December 07, 2021. FINDINGS: SURGICAL CHANGES: None. ALIGNMENT: Normal. BONES: Posterior odontoid cortical irregularity, possibly representing chronicfracture deformity. Multilevel degenerative endplate changes. No concerning lesions. INTERVERTEBRAL DISCS: No significant abnormalities. SPINAL CANAL AND SPINAL CORD: Cervical spinal cord posterior and right lateral T2 hyperintense signalchanges at C1 level, most likely representing myelomalacia, possiblysecondary to a post traumatic injury. .No fluid collections. VISIBLE EXTRASPINAL SOFT TISSUES AND INTRACRANIAL CONTENTS: Unremarkable. Normal positioning of the cerebellar tonsils. EVALUATION BY LEVEL: C1-C2: No spinal canal stenosis. No neural foraminal stenosis. C2-C3: Disc osteophyte complex with mild spinal canal stenosis. Nosignificant neural foraminal stenosis. No facet arthropathy. C3-C4: Shallow disc bulge without significant spinal canal stenosis. Nosignificant neural foraminal stenosis. No facet arthropathy. C4-C5: central zone disc protrusion, minimally flattening the centralventral thecal sac. No significant spinal canal stenosis. Mild left neuralforaminal stenosis. No significant right neural foraminal stenosis. Nofacet arthropathy. C5-C6: Disc bulge and endplate osteophytosis as well as ligamentum flavumhypertrophy contributing to mild spinal canal stenosis. Moderate rightneural foraminal stenosis. Mild left neural foraminal stenosis. No facetarthropathy. C6-C7: Disc bulge and mild spinal canal stenosis. Moderate left neuralforaminal stenosis. No significant right neural foraminal stenosis. Nofacet arthropathy. C7-T1: No significant spinal canal stenosis. No significant neuralforaminal stenosis. No facet arthropathy. T1-T2: No significant disc bulge or spinal canal stenosis. No neuralforaminal stenosis. No facet arthropathy. IMPRESSION 1. Posterior odontoid cortical irregularity, which may be sequela of aprior traumatic injury. 2. C1 level spinal cord dorsal and right lateral abnormal T2 hyperintensesignal changes suggestive of myelomalacia, likely sequela of a traumaticinjury. 3. Multilevel mild spinal canal stenosis with mild spinal canal stenosisat C5- C6. 4. Varying degrees of neural foraminal stenosis most apparent at C5-C6 onthe right. I have personally reviewed the images and the above interpretation andagree with the findings. Ayush Shirley PA-C G MRI ORDERABLES documented in this encounter Visit Diagnoses Diagnosis Cervical myelopathy ([facility]) Cervical spondylosis with myelopathy documented in this encounter Care Teams Stereotyper Relationship Specialty Start Date End Date Alina Santacruz MD [address] [place] [phone] PCP - General 08/17/21 documented as of this encounter
--- OUTSIDE RECORDS SUMMARY | 2023-12-31 16:47 | XMS_ITS | Encounter Summary ---
Author Organization [facility] Address [address] [place] [address] Care Team Providers Care Dredge Operator Supervisor Name Role Phone Alina Santacruz MD Primary Care Provider [phone] Reason for Visit * Reason Comments New Patient Visit * Radiology Services (Routine/Next Available) - Specialty Report Received Specialty Diagnoses / Procedures Referred By Radha casey Referred To Contact Diagnoses Vitamin D deficiency Osteopenia of multiple sites Procedures DXA DUAL XRAY ABSORPTIOMETRY FOR BONE DENSITY ([facility] PERFORMED) Alina Santacruz MD [address] [phone] Referral ID Status Reason Start Date Expiration Date V isits Requested Visits Authorized [id number] Specialty Report Received 10/10/2021 1 1 Encounter Details Date Type Department Care Team (Latest Contact Info) Description 11/15/2021 14:50 EDT Procedure visit [facility] Endocrinology - [address] [phone] Bethel Haynes MD Post-menopausal (Primary Dx); Vitamin D deficiency; Osteopenia of multiple sites; Osteoporosis screening Social History Tobacco Use Types Packs/Day Years [...] Sign Reading Time Taken Comments Blood Pressure - - Pulse - - Temperature - - Respiratory Rate - - Oxygen Saturation - - Inhaled Oxygen Concentration - - Weight 60 kg (132 lb 4.4 oz) 11/15/2021 1506 EDT Height 164 cm (5' 4.57) 11/15/2021 1506 EDT Body Mass Index 22.31 11/15/2021 1506 EDT documented in this encounter Progress Notes * Matilda Sung, RT - 11/15/2021 1450 EDT Procedure Date: 11/15/2021 Referring Physician: Alina Santacruz MD Previous Scan Date: None ABN Necessary: No Ht 164 cm (64.57) Wt 60 kg (132 lb 4.4 oz) BMI 22.31 kg/m?? Done AP SPINE Yes FEMUR yes TOTAL BODY FOREARM LVA/VFA HEEL US PATIENT HISTORY: There is no problem list on file for this patient. No past medical history on file. Additional Comments: Previous/Prior Comparison? No Pharmacologic? No Osteoporosis Center Patient Information Ethnicity/Race: Nutrition and Habits: Do you consume dairy? Yes Number of servings per day? 2-3 Do you take calcium supplements? No Amount? Do you drink 3 or more alcoholic beverages daily? No Have you now or have you had in the past an eating disorder? No Do you or have you smoked in the last 6 months? No Family History: Did your mother or father have a hip fracture? No Do you have a parent or sibling who suffered a broken hip, shoulder, wrist or ribs after age 45? No Patient History-Medications: Have you taken any of the following medications or treatments. (Now or in the past)?: Steroid (prednisone, cortisone, Medrol) 5mg. or more for at least 3 months? No Thyroid medication for thyroid cancer suppression? No Anticonvulsants (phenytoin, Dilantin, phenobarbital) No GnRH Agonist (for endometriosis or prostate cancer, Example - Lupron) No Depo Povera (Current use) No Aromatase inhibitor: Letrozol (Femera), Anastrozole (arimidex), Exemestane (Aromasin) No TZD's for diabetes (Actos, Avandia) No Medical History: Have you had any of the following?: Hyperthyroidism (over active thyroid) No Hyperparathyroidism (over active parathyroid, high blood calcium) No Kidney failure No Rheumatoid arthritis No Seizure disorder (epilepsy) No Diabetes mellitus No Bariatric surgery/Gastric bypass No Back Surgery No Back X-ray No Fractures after age 40 No Area: Treatments: Alendronate (Fosamax) Never, Date stopped: Calcitonin (Miacalcin) Never, Date stopped: Denosumab (Prolia) Never, Date stopped: Ibandronate (Boniva) Never, Date stopped: Pamidronate (Aredia) Never, Date stopped: Raloxifene (Evista) Never, Date stopped: Risendronate (Actonel) Never, Date stopped: Teriparatide (Forteo) Never, Date stopped: Zoledronic Acid (Reclast, Zomata) Never, Date stopped: Other: Never, Date stopped: For Women Only: What was your age at menopause? 20 Surgical Are you taking estrogen now or within the past year? Past , Date stopped: Have you been treated for breast cancer? Never Comments: RT FERNANDA 11/15/2021 15:17 documented in this encounter Plan of Treatment Upcoming Encounters Date Type Department Care Team (Late st Contact Info) Description 01/07/2024 12:45 EDT Phlebotomy Only [facility] Hematology & Oncology - [address] [phone] Blood Doctor, [facility] Hem Onc 01/07/2024 13:30 EDT Office Visit [facility] Hematology & Oncology [address] [phone] Maria Alejandra Jung MD [address] [place] [address], [address] [place] [phone] 01/16/2024 14:30 EDT Appointment [facility] Breast Imaging Mammography - [address] [phone] documented as of this encounter Procedures Procedure Name Priority Date/Time Associated Diagnosis Comments DXA DUAL XRAY ABSORPTIOMETRY FOR BONE DENSITY [facility]) Routine 11/16/2021 Vitamin D deficiency Osteopenia of multiple sites documented in this encounter Results * DXA DUAL XRAY ABSORPTIOMETRY FOR BONE DENSITY ([facility] PERFORMED) (11/16/2021) DEXA Bone Density DEXA Bone Density, External Anatomical Region Laterality Modality Other Alina Santacruz MD IMG DEXA ORDERABLES documented in this encounter Visit Diagnoses Diagnosis Post-menopausal- Primary Asymptomatic postmenopausal status (age-related) (natural) Vitamin D deficiency Unspecified vitamin D deficiency Osteopenia of multiple sites Osteoporosis screening Special screening for osteoporosis documented in this encounter Care Teams Dredge Operator Supervisor Relationship Specialty Start Date End Date Alina Santacruz MD [address] [place] [phone] PCP - General 08/17/21 documented as of this encounter
--- OUTSIDE RECORDS SUMMARY | 2023-12-31 16:47 | XMS_ITS | Encounter Summary ---
Author Organization [facility] Address [address] [place] [address] Care Team Providers Care Grinder Brake Lining Name Role Phone Alina Santacruz MD Primary Care Provider Reason for Visit * Reason Onset Date Comments Appointment Related 08/23/2021 Encounter Details Date Type Department Care Team (Late Contact Info) Description 08/23/2021 Telephone [facility] Cardiology - [address] [place] [phone] Ericka Price, RN [address] [place] [phone] Appointment Related Social History Tobacco Use Types [...] encounter Miscellaneous Notes * Telephone Encounter - Ericka Price RN - 08/23/2021 0959 EDT I sent a text to patient and gave instructions for stress test. Reminded patient to abstain from caffeine for 12 hours, NPO 4 hours except water, wear comfortable clothing and shoes to walk on treadmill and do not apply any lotions or creams to the chest and abdomen areas. Patient aware of campus, date and time. documented in this encounter Plan of Treatment Upcoming Encounters Date Type Department Care Team (Late Contact Info) Description 01/07/2024 12:45 EDT Phlebotomy Only [facility] Hematology & Oncology - [address] [phone] Blood Doctor, [facility] Hem Onc 01/07/2024 13:30 EDT Office Visit [facility] Hematology & Oncology [address] [phone] Maria Alejandra Jung MD [address] [place] [address], [address] [place] [phone] 01/16/2024 14:30 EDT Appointment [facility] Breast Imaging Mammography - [address] [phone] documented as of this encounter Visit Diagnoses Not on filedocumented in this encounter Care Teams Grinder Brake Lining Relationship Specialty Start Date End Date Alina Santacruz MD [address] [place] [phone] PCP - General 08/17/21 documented as of this encounter
--- OUTSIDE RECORDS SUMMARY | 2023-12-31 16:47 | XMS_ITS | Encounter Summary ---
Author Organization [facility] Address [address] [place] [address] Care Team Providers Care Insurance Consultant Name Role Phone Gemma Arreola APPLIED PSYCHOLOGY CHAIR Primary Care Provider Encounter Details Date Type Department Care Team (Late st Contact Info) Description 04/12/2016 Results Only [facility] [phone] Lexx Tamez, DO [address] [phone] Social History Tobacco Use Types Packs/Day Years Used Date Smoking Tobacco: Never Assessed Sex and Gender Information Value Date Recorded Sex Assigned at Not on file Gender Identity Female 08/17/2021 11:20 EDT Sexual Orientation Not on file documented as of this encounter Plan of Treatment Upcoming Encounters Date Type Department Care Team (Late Contact Info) Description 01/07/2024 12:45 EDT Phlebotomy Only [facility] Hematology & Oncology - [address] [phone] Blood Doctor, [facility] Hem Onc 01/07/2024 13:30 EDT Office Visit [facility] Hematology & Oncology - [address] [phone] Maria Alejandra Jung MD [address] [place] [address], [address] [place] [phone] 01/16/2024 14:30 EDT Appointment [facility] Breast Imaging Mammography - [address] [phone] documented as of this encounter Procedures Procedure Name Priority Date/Time Associated Diagnosis Comments SURGICAL PATHOLOGY Routine 04/12/2016 18 :29 EST documented in this encounter Results * SURGICAL PATHOLOGY (04/12/2016 18:29 EST) Pathology Report: SURGICAL PATHOLOGY REPORT Reports generated via electronic interface contain original data; however they are lacking the format of the original report. Caution should be taken when reading/interpret ing unformatted reports. Name: ? DANIELLE GILMAN ? Accession #: ? [id number] ? : ? 1955 (Age: 61) ??F ? Collect Date: ? 04/12/2016 ? Location: ? [facility] ? Receive Date: ? 04/13/2016 ? Provider: LEXX TAMEZ DO Copy to: NAYELY MONTENEGRO MD ? 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 Document reviewed and electronically signed by: NONA MCKEON MD Report ??Date: 04/14/2016 14:04 By the signature above, the attending physician certifies that he/she has personally conducted a gross and/or microscopic examination of the described specimens and rendered or confirmed the above diagnosis. Specimen(s) Received: Antrum bxs Clinical History: Gastritis; hx of cirrhosis Gross Description: ? Received in formalin labelled with proper patient identification (initials L, C) and antrum bxs are two garza-yellow granular tissues (0.4 x 0.3 x 0.2 cm and 0.4 x 0.3 x 0.2 cm). Entirely submitted in 1. Porsche Dwayne 04/14/2016 8:17 AM End of Report [facility] 04/12/2016 18:2 9 EST 04/13/2016 18:29 EST Lexx Tamez DO PATHOLOGY ORDER LUCIA [facility] [address] [place] [address] documented in this encounter Visit Diagnoses Not on filedocumented in this encounter Care Teams Insurance Consultant Relationship Specialty Start Date End Date Gemma Arreola NP [address] [place] [phone] PCP - General 11/25/10 11/23/20 documented as of this encounter
--- OUTSIDE RECORDS SUMMARY | 2023-12-31 16:47 | XMS_ITS | Encounter Summary ---
Author Organization [facility] Address [address] [place] [address] Care Team Providers Care Microsoft Bi Consultant Name Role Phone Alina Santacruz MD Primary Care Provider [phone] Encounter Details Date Type Department Care Team (Latest Contact Info) Description 12/18/2021 Travel Social History Tobacco Use Types Packs/Day [...] 10:10 EDT documented as of this encounter Plan of Treatment Upcoming Encounters Date Type Department Care Team (Late st Contact Info) Description 01/07/2024 12:45 EDT Phlebotomy Only [facility] Hematology & Oncology - [address] [phone] Blood Doctor, [facility] Hem Onc 01/07/2024 13:30 EDT Office Visit [facility] Hematology & Oncology [address] [phone] Maria Alejandra Jung MD [address] [facility], [facility], [address] [place] [phone] 01/16/2024 14:30 EDT Appointment [facility] Breast Imaging Mammography - [address] [phone] documented as of this encounter Visit Diagnoses Not on filedocumented in this encounter Care Teams Microsoft Bi Consultant Relationship Specialty Start Date End Date Alina Santacruz MD [address] [place] [phone] PCP - General 08/17/21 documented as of this encounter
--- OUTSIDE RECORDS SUMMARY | 2023-12-31 16:47 | XMS_ITS | Encounter Summary ---
Author Organization [facility] Address [address] [place] [address] Care Team Providers Care Manager Molecular Name Role Phone Gemma Arreola NP Primary Care Provider [phone] Ayush Ye MD Primary Care Provider Alina Santacruz MD Primary Care Provider Encounter Details Date Type Department Care Team (Late st Contact Info) Description 10/14/2019 Lab Requisition [facility] Pathology & Laboratory Medicine [address] [address] Outr Resulting Lab, Provider Social History Tobacco [...] 12:45 EDT Phlebotomy Only [facility] Hematology & Oncology [address] [address] Blood Doctor, [facility] Hem Onc 01/07/2024 13:30 EDT Office Visit [facility] Hematology & Oncology [address] [address] Maria Alejandra Jung MD [address] [place] [address], Level [address] [place] [phone] 01/16/2024 14:30 EDT Appointment [facility] Breast Imaging Mammography - [address] [address] documented as of this encounter Procedures Procedure Name Priority Date/Time Associated Diagnosis Comments ZZCOVID-19 TEST [facility] PCR Today 10/13/2019 19:20 EDT COVID-19 TESTING Routine 10/13/2019 19:2 0 EDT documented in this encounter Results * COVID-19 TEST [facility] PCR (10/13/2019 19:20 EDT) Swab ENTIRE NASOPHARYNX / Unknown 10/13/2019 19:20 EDT 10/14/2019 15:16 EDT Provider Outr Resulting Lab MICROBIOLOGY - GENERAL ORDERABLES Performing Organization Address City/State/[facility] Co de Phone Number [facility] [address] [place] [address] * COVID-19 TESTING (10/13/2019 19:20 EDT) COVID-19 rt-PCR Result Negative Negative 10/14/2019 19:35 EDT [facility] Comment: This test has not been FDA cleared or approved. This test has been authorized by FDA under an EUA for use by authorized laboratories. This test has been authorized only for detection of nucleic acid from 2019-nCoV, not for any other viruses or pathogens. This test is only authorized for the duration of the declaration that circumstances exist justifying the authorization of emergency use of in vitro diagnostic tests for detection and/or diagnosis of 2019-nCoV under section 564(b)(1) of Act, 21 U.S.C ?? 360bbb-3(b) (1), unless the authorization is terminated or revoked sooner. Negative results do not preclude 2019-nCoV infection and should not be used as the sole basis for treatment or other patient management decisions. Negative results must be combined with clinical observations, patient history, and epidemiological information. Performed on the [employer] Fusion instrument Performing Lab [facility] Lab 10/14/2019 19:35 EDT [facility] Swab ENTIRE NASOPHARYNX / Unknown 10/13/2019 19:20 EDT 10/14/2019 15:16 EDT Provider Outr Resulting Lab MICROBIOLOGY - GENERAL ORDERABLES [facility] [address] [place] [address] documented in this encounter Visit Diagnoses Not on filedocumented in this encounter Additional Health Concerns Infection Onset Date Last Indicated Resolved Time Rule-Out C. difficile 10/30/2022 10/30/20222022 13:17 EDT documented as of this encounter Care Teams Manager Molecular Relationship Specialty Start Date End Date Gmema Arreola [employer]OLOGY TEACHER [address] [phone] PCP - General 11/25/10 11/23/20 Ayush Ye MD [address] [place] [phone] PCP - General Family Medicine - Primary Care 11/24/20 08/16/21 Alina Santacruz MD [address] [place] [phone] PCP - General 08/17/21 documented as of this encounter
--- OUTSIDE RECORDS SUMMARY | 2023-12-31 16:47 | XMS_ITS | Encounter Summary ---
Author Organization [facility] Address [address] [place] [address] Care Team Providers Care Account Manager Relief Name Role Phone Alina Santacruz MD Primary Care Provider [phone] Reason for Visit * Reason Comments Back Pain R-sided low back skylar n x2mos. Scheduled for MRI 12/28, but cannot wait. Chronic low back pain hx. 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 Encounter Details Date Type Department Care Team ([facility] st Contact Info) Description 12/18/2021 10:11 EDT - 12/18/2021 15:02 EDT Emergency [facility] Emergency Department - [address] [address] Allen Freeman MD [address] [facility], [address] [place] [address] Acute right-sided low back pain without sciatica (Primary Dx); Right lower quadrant abdominal pain Discharge Disposition: Home or Self Care [...] 10:10 EDT documented as of this encounter Last Filed Vital Signs Vital Sign Reading Time Taken Comments Blood Pressure 157/91 12/18/2021 1500 EDT Pulse 67 12/18/2021 1500 EDT Temperature 36.3 ??C (97.3 ??F) 12/18/2021 1009 EDT Respiratory Rate 16 12/18/2021 1009 EDT Oxygen Saturation 99% 12/18/2021 1500 EDT Inhaled Oxygen Concentration - - Weight 61.2 kg (135 lb) 12/18/2021 1009 EDT Height 162.6 cm (5' 4) 12/18/2021 1009 EDT Body Mass Index 23.17 12/18/2021 1009 EDT documented in this encounter Discharge Instructions * Discharge Instructions* Fely Bustos - 12/18/2021 14:34 EDT You were seen for right-sided back discomfort and abdominal discomfort. The CT scan showed may be asmall kidney stone, but nothing else major. Please return if you have worsening pain, new or unusual weakness or numbness of the legs, accidental urination, or other concerning symptoms. I hope that you feel better. 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 documented in this encounter Medications at Time [...] documented in this encounter ED Notes * Wendy Troy RN - 12/18/2021 1501 EDT IV d/c'd discharge instructions given VSS discharge to home with family * Allen Freeman MD - 12/18/2021 1112 EDT Emergency Department Visit This patient received an evaluation and medical screening exam for emergent medical conditions at the [facility] on 12/18/2021 This documentation is recorded by Fely Bustos acting as Scribe under the direction and presence of Allen Freeman MD. Allen Freeman MD: I personally performed the services recorded by the scribe in my presence. I confirm the scribe's documentation has been reviewed by me to accurately and completely record my work, treatment, procedures, and medical decision making. Assessment and ED Course This is a 66-year-old woman with a history of chronic back pain, left lower extremity numbness as aresult of that, who presents with right-sided back, flank and abdominal discomfort. The differential would include muscle spasm, herniated disc, kidney stone, colitis or other intra-abdominal processamong others. Given that she is tender in the abdomen, has a history of kidney stones, I am inclined to image so get a CT scan to further evaluate intra-abdominal causes. She has her usual numbness, and slight weakness of the left lower extremity but no new neurologic deficits or red flag symptoms to warrant emergent spinal imaging. Work to control her pain with muscle relaxer, Toradol and otherswhile awaiting labs, CT scan. CT reassuring overall, symptoms a bit better with Toradol, and she feels that she can manage her symptoms at home and is reassured by negative work-up here. We did discuss her hyperkalemia, and I recommended she stop her JENNI inhibitor, and hydrate well, and follow-up with her primary care physicianfor repeat lab checks. She said her potassium has been elevated before and and something are watching. She also has follow-up with spine, with outpatient imaging pending. She is comfortable with discharge and was discharged stable condition. We discussed reasons to return sooner. 1152: Patient given Lidoderm patch and 750 mg PO Robaxin for pain management. CT A/P WO Contrast notable for small left obstructive renal calculus, otherwise reassuring. Patienthad labs that were reviewed independently by myself, significant for mild hyperkalemia. Normal CBC and UA. Patient administered 15 mg IV Toradol for pain management and 500 ml IV sodium chloride bolus. Patient was re-evaluated and is feeling improved. At this time, the patient was stable for discharge home due to her reassuring evaluation and plan for spine clinic follow-up. Return precautions werediscussed. The patient is comfortable with the plan for discharge home. Prior to discharge discussed with the patient likely diagnosis, expected course, treatment plan, follow-up plan and reasons to return. <principal problem not specified> Disposition Final diagnoses: Acute right-sided low back pain without sciatica Right lower quadrant abdominal pain Condition at departure from the Emergency Department: Stable Chief Complaint Back Pain (R-sided low back pain x2mos. Scheduled for MRI 12/28, but cannot wait. Chronic low back pain hx. 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 female with PMH including chronic back pain who presents to the ED for assessment of back pain. The patient reports that she has a history of chronic left-sided nerve damage, resulting in left-sided pain that she follows closely with [facility] Spine clinic for. She states that for the past several weeks, she has been having progressively worsening right flank pain that she describes as a band beginning at her right lower back radiating across her right flank and right low abdomen. She is not sure when her pain specifically began, however, notes her pain significantly worsened when she was moving heavy objects a few weeks ago. The patient denies fever or urinary symptoms. She has chronic left lower extremity numbness but otherwise denies new extremity numbness or paresthesias. She takes morphine for chronic pain control and last took it at 0500 this morning. The patient reports history of hysterectomy and appendectomy. She reports history of kidney stones and notes her current pain feels similar. I reviewed the patient's most recent spine clinic note from 12/07/21. The patient is scheduled for outpatient cervical and lumbar spine MRI on 12/28. History was provided by: Patient, Medical records Patient's pertinent PMH, FH, SH were reviewed and updated PRN. ROS ROS A 10-point review of systems was performed. The patient answered negative to all questions with theexceptions of those explicitly detailed as positives in the HPI. Pertinent negatives are also explicitly stated. Physical Exam Vital Signs Temp: 36.3 ??C (97.3 ??F) Temp src: Temporal Pulse: 80 Resp: 16 SpO2: 100 % BP: (!) 145/74 BP Device: BP Machine BP Patient Position: Sitting BP Cuff Location: Right arm O2 Device: None (Room air) Nursing notes and vital signs were reviewed. Constitutional: Well appearing, in no acute distress. Eyes: Pupils equal and reactive to light, no scleral icterus Mouth: Moist oral mucosa without apparent lesions Neck: Full ROM, supple with no meningismus Heart: RRR without murmurs, rubs, or gallops, normal radial pulses Lungs: Clear to ascultation, no respiratory distress or tachypnea Abdomen: Right CVA tenderness and right lower quadrant abdominal tenderness, no rebound or guarding. Back: Right paraspinal muscular tenderness in lumbar region. Skin: No overt rashes on exposed skin Extremities: Moving spontaneously, warm and well perfused, no edema, no calf tenderness Neuro: Grossly neurologically intact with normal speech. 3+ patellar reflexes BL. Strength is 4+/5 throughout left lower extremity diffusely. Diminished sensation in lateral left lower leg with sensation intact medially (she said the weakness and numbness if normal). Right lower extremity has 5/5 dorsi and plantar flexion, knee flexion and 5/5 iliopsoas, normal sensation on the right lower extremity. Psych: No agitation or overt thought disorder Laboratory Results Labs Reviewed COMPLETE BLOOD COUNT AND DIFFERENTIAL - Abnormal Result Value Status WBC 6.78 Final RBC 3.78 (*) Final Hemoglobin 12.0 Final HCT 35.1 Final MCV 93 Final MCH 31.7 Final MCHC 34.2 Final RDW-CV 13.8 Final RDW-SD 46.8 Final PLT 222 Final MPV 10.2 Final Neutrophils 47.5 Final Lymphocytes 40.7 Final Monocytes 9.7 Final Eosinophils 1.2 Final Basophils 0.6 Final Immature Grans 0.3 Final Absolute Neutrophils 3.22 Final Absolute Lymphocytes 2.76 Final Absolute Monocytes 0.66 Final Absolute Eosinophils 0.08 Final Absolute Basophils 0.04 Final Absolute Immature Grans 0.02 Final Type of Differential: Auto Final COMPREHENSIVE METABOLIC PANEL (CMP) - Abnormal Sodium 132 (*) Final Potassium 5.8 (*) Final Chloride 100 Final CO2 Total 29 Final Glucose 88 Final BUN 18 Final Creatinine 0.93 Final eGFR 69 Final Total Protein 7.4 Final Albumin 4.4 Final Alkaline Phosphatase 71 Final AST 38 Final ALT 20 Final Bilirubin, Total <0.5 Final Calcium 9.0 Final Albumin/Globulin Ratio 1.5 Final Anion Gap 3 (*) Final URINE CHEMICAL (DIP) & SEDIMENT (MICRO) WITH REFLEX TO CULTURE - Normal Color UA Yellow Final Clarity UA Clear Final Glucose UA Negative Final Bilirubin UA Negative Final Ketones UA Negative Final Specific [place], Urine 1.006 Final Blood UA Negative Final Urobilinogen UA Normal Final Nitrite UA Negative Final Leukocyte Esterase UA Negative Final Protein UA Negative Final pH, UA 6.5 Final Urine RBC Count, Auto 0 - 2 Final Urine WBC Count, Auto 0 - 3 Final Urine Squamous Count, Auto None Seen Final Urine Hyaline Cast Count, Auto <=10 Final Urine Bacteria Count, Auto None Seen Final Narrative: NOTE: Reflex to Urine Culture test is not indicated based on Urine Sediment Analysis results. Urine Sediment Analysis results are unreliable on urines that are unrefrigerated for >2 hrs or refrigerated >8 hrs. Data Interpretation An EKG was obtained and independently interpreted: Sinus rhythm. AL interval 225. No ST elevation or depression. Non-specific T wave flattening. No peaked T waves. CT scans and MRI reviewed by me and interpreted by the radiologist: CT ABDOMEN PELVIS WO CONTRAST: 1. Tiny density within the upper pole of the left kidney could reflect a small obstructive calculus. No obstructing stone or hydronephrosis. 2. Cholelithiasis 3. Degenerative changes at L4-5 and L5-S1. 4. Status post hysterectomy Laboratory results independently reviewed, significant for: UA normal. Mildly hyperkalemic. Normal CBC. Procedures Procedures documented in this encounter Plan of Treatment Upcoming Encounters Date Type Department Care Team (Late st Contact Info) Description 01/07/2024 12:45 EDT Phlebotomy Only [facility] On[facility] [address] [id number] Blood Doctor, [facility] Hem Onc 01/07/2024 13:30 EDT Office Visit [facility]ology [facility] Oncology [address] [address] Maria Alejandra Jung MD [address] [place] [address], [address] [place] [address] 01/16/2024 14:30 EDT Appointment [facility] Breast Imaging Mammography [address] [address] documented as of this encounter Procedures Procedure Name Priority Date/Time Associated Diagnosis Comments ECG REPORT - SCANNED 12/25/2021 5:26 EDT ECG REPORT - SCANNED 12/25/2021 5:26 EDT EKG 12-LEAD STAT 12/18/2021 14:[address] ABDOMEN PELVIS WO CONTRAST STAT 12/18/2021 12:53 EDT URINE CHEMICAL (DIP) & SEDIMENT (MICRO) WITH REFLEX TO CULTURE STAT 12/18/2021 12:19 EDT COMPLETE BLOOD COUNT AND DIFFERENTIAL STAT 12/18/2021 12:16 EDT COMPREHENSIVE METABOLIC PANEL (CMP) STAT 12/18/2021 12:16 EDT documented in this encounter Results * ECG REPORT - SCANNED (12/25/2021 5:26 EDT) 12/25/2021 5:26 EDT Scan 2 Python Programmer PROCEDURE/MINOR OMID GICAL ORDERABLES * ECG REPORT - SCANNED (12/25/2021 5:26 EDT) 12/25/2021 5:26 EDT Scan 2 Python Programmer PROCEDURE/MINOR OMID GICAL ORDERABLES * EKG 12-LEAD (12/18/2021 14:05 EDT) 12/18/2021 14:0 5 EDT Narrative [facility] EKG - 12/23/2021 11:26 EDT ?[facility] Emergency ? Test Date: ?2021-12-18 Pat Name: ? DANIELLE GILMAN ? Department: ?? ED ? Room: ? WB02 Gender: ? Female ? Cigar Patcher: ?? [id number] : ?1955 ? Requested By: MONI Wilkinson Order Number: [id number] ? Allie DUQUE: ?? IVETT SAM MD ? Measurements Intervals ?[place] ? Rate: ? 61 ? P: ?-14 AL: ? 225 ?QRS: ?17 QRSD: ? 96 ? T: ?38 QT: ? 402 ? QTc: ?407 ? Interpretive Statements SINUS RHYTHM WITH FIRST DEGREE AV BLOCK MODERATE T-WAVE ABNORMALITY, CONSIDER LATERAL ISCHEMIA . No previous ECG available for comparison I reviewed the tracing and have either agreed or edited the findings in this report. Electronically Signed On 12-23-2021 11:26:14 EDT by IVETT SAM MD. Procedure Note Ivett Sam MD - 12/23/[address] [facility] Emergency Test Date: 2021-12-18 Pat Name: DANIELLE GILMAN Department: ED Room: [facility] Gender: Female Cigar Patcher: [id number] : 1955 Requested By: MONI Wilkinson Order Number: [id number] Reading MD: IVETT SAM MD Measurements Intervals [place] Rate: 61 P: -14 AL: 225 QRS: 17 QRSD: 96 T: 38 QT: 402 QTc: 407 Interpretive Statements SINUS RHYTHM WITH FIRST DEGREE AV BLOCK MODERATE T-WAVE ABNORMALITY, CONSIDER LATERAL ISCHEMIA . No previous ECG available for comparison I reviewed the tracing and have either agreed or edited the findings inthis report. Electronically Signed On 12-23-2021 11:26:14 EDT by YOSELIN DUQUE. Allen Freeman MD CARDIAC ECG ORDERABL ES [facility] EKG * CT ABDOMEN PELVIS WO CONTRAST (12/18/2021 12:53 EDT) Anatomical Region Laterality Modality Body, Abdomen, Pelvis, Abdomen and Pelvis Computed Tomography 12/18/2021 13:5 6 EDT Impressions 12/18/2021 13:56 EDT 1. Tiny density within the upper pole of the left kidney could reflect a small obstructive calculus. No obstructing stone or hydronephrosis. 2. Cholelithiasis 3. Degenerative changes at L4-5 and L5-S1. 4. Status post hysterectomy I have personally reviewed the images and the above interpretation and agree with the findings. Narrative 12/18/2021 13:[address] ABDOMEN PELVIS WO CONTRAST ??12/18/2021 12:00 PM Signs and Symptoms/Comments: ?? RLQ and right flank pain, h/o kidney stones and hysterectomy Technique: CT of the abdomen and pelvis was performed without the administration of intravenous contrast. Comparison: None. Findings: Lower chest: Bibasilar atelectasis . Hepatobiliary: No contour deforming hepatic mass. No intra or extrahepatic biliary ductal dilatation. A tiny density is present within the dependent portion of the gallbladder Spleen, pancreas, adrenal glands: No contour deforming splenic lesion. No adrenal mass. No pancreatic ductal dilatation. Partial fatty replacement of the pancreas. Kidneys, ureters, bladder: Large exophytic upper pole right renal cyst. Tiny punctate calcification in the upper left kidney. No hydronephrosis. Small hypodensity in the lower left kidney could represent a cyst. Uterus, ovaries: Uterus is surgically absent, per chart review. No adnexal mass. Bowel: No bowel obstruction or focal inflammation. Appendix is not visualized. Peritoneal cavity: No intraperitoneal free fluid or free air. Lymphovascular: No adenopathy. Calcified atherosclerotic plaque of the abdominal aorta. Abdominal wall: No bowel containing hernias. Musculoskeletal: There is lumbar scoliosis. There are degenerative changes at the L4-5 and L5-S1 levels. Ged Preparation Teacher: No additional findings. Procedure Note Melyssa Vincent MD - 12/18/2021 CT ABDOMEN PELVIS WO CONTRAST 12/18/2021 12:00 PM Signs and Symptoms/Comments: RLQ and right flank pain, h/o kidney stones and hysterectomy Technique: CT of the abdomen and pelvis was performed without the administration ofintravenous contrast. Comparison: None. Findings: Lower chest: Bibasilar atelectasis . Hepatobiliary: No contour deforming hepatic mass. No intra or extrahepaticbiliary ductal dilatation. A tiny density is present within the dependentportion of the gallbladder Spleen, pancreas, adrenal glands: No contour deforming splenic lesion. Noadrenal mass. No pancreatic ductal dilatation. Partial fatty replacementof the pancreas. Kidneys, ureters, bladder: Large exophytic upper pole right renal cyst.Tiny punctate calcification in the upper left kidney. No hydronephrosis.Small hypodensity in the lower left kidney could represent a cyst. Uterus, ovaries: Uterus is surgically absent, per chart review. No adnexalmass. Bowel: No bowel obstruction or focal inflammation. Appendix is notvisualized. Peritoneal cavity: No intraperitoneal free fluid or free air. Lymphovascular: No adenopathy. Calcified atherosclerotic plaque of theabdominal aorta. Abdominal wall: No bowel containing hernias. Musculoskeletal: There is lumbar scoliosis. There are degenerative changesat the L4-5 and L5-S1 levels. Ged Preparation Teacher: No additional findings. IMPRESSION 1. Tiny density within the upper pole of the left kidney could reflect asmall obstructive calculus. No obstructing stone or hydronephrosis. 2. Cholelithiasis 3. Degenerative changes at L4-5 and L5-S1. 4. Status post hysterectomy I have personally reviewed the images and the above interpretation andagree with the findings. Allen Freeman MD [facility] [place] [place] CT ORDERABLES * URINE CHEMICAL (DIP) & SEDIMENT (MICRO) WITH REFLEX TO CULTURE (12/18/2021 12:19 EDT) Color UA Yellow Colorless, Yellow 12/18/2021 12:42 [facility] Clarity UA Clear Clear 12/18/2021 12:42 [facility] Glucose UA Negative Negative 12/18/2021 12:42 [facility] Bilirubin UA Negative Negative 12/18/2021 12:42 [facility] Ketones UA Negative Negative 12/18/2021 12:42 [facility] Specific [place], Urine 1.006 1.001 - 1.035 12/18/2021 12:42 [facility] Blood UA Negative Negative 12/18/2021 12:42 [facility] Urobilinogen UA Normal Normal mg/dL 022 12:42 [facility] Nitrite UA Negative Negative 12/18/2021 12:42 [facility] Leukocyte Esterase UA Negative Negative 12/18/2021 12:42 [facility] Protein UA Negative Negative 12/18/2021 12:42 [facility] pH, UA 6.5 4.6 - 8.0 12/18/2021 12:42 [facility] Urine RBC Count, Auto 0 - 2 0 - 2 Cells/HPF 12/18/2021 12:42 [facility] Urine WBC Count, Auto 0 - 3 0 - 3 Cells/HPF 12/18/2021 12:42 [facility] Urine Squamous Count, Auto None Seen None Seen Cells/HPF 12/18/2021 12:42 [facility] Urine Hyaline Cast Count, Auto <=10 <=10 Casts/LPF 12/18/2021 12:42 [facility] Urine Bacteria Count, Auto None Seen None Seen Bacteria/HPF 12/18/2021 12:42 [facility] Urine URINE SPECIMEN COLLECTION, CLEAN CATCH / Unknown Urine Collect / Unknown 12/18/2021 12:19 EDT 12/18/2021 12:24 EDT Narrative [facility] - 12/18/2021 12:42 EDT NOTE: Reflex to Urine Culture test is not indicated based on Urine Sediment Analysis results. Urine Sediment Analysis results are unreliable on urines that are unrefrigerated for >2 hrs or refrigerated >8 hrs. Allen Freeman MD URINALYSIS ORDERABLE S [facility] [address] [place] [address] * (ABNORMAL) COMPREHENSIVE METABOLIC PANEL (CMP) (12/18/2021 12:16 EDT) Sodium 132(L) 136 - 145 mmol/L 12/18/2021 13:39 [facility] Potassium 5.8(H) 3.5 - 5.0 mmol/L 12/18/2021 13:39 [facility] Chloride 100 96 - 110 mmol/L 12/18/2021 13:39 [facility] CO2 Total 29 22 - 32 mmol/L 12/18/2021 13:39 [facility] Glucose 88 70 - 100 mg/dL 12/18/2021 13:39 [facility] BUN 18 10 - 26 mg/dL 12/18/2021 13:39 [facility] Creatinine 0.93 0.52 - 1.04 mg/dL 12/18/2021 13:39 [facility] eGFR 69 >60 mL/min/1.7 3m2 12/18/2021 13:39 [facility] Total Protein 7.4 6.3 - 8.2 g/dL 12/18/2021 13:39 [facility] Albumin 4.4 3.4 - 4.9 g/dL 12/18/2021 13:39 [facility] Alkaline Phosphatase 71 38 - 126 U/L 12/18/2021 13:39 [facility] AST 38 15 - 46 U/L 12/18/2021 13:39 [facility] ALT 20 <35 U/L 12/18/2021 13:39 [facility] Bilirubin, Total <0.5 <1.4 mg/dL 12/19/19 13:39 [facility] Calcium 9.0 8.5 - 10.5 mg/dL 12/18/2021 13:39 [facility] Albumin/Globulin Ratio 1.5 1.0 - 2.5 12/18/2021 13:39 [facility] Anion Gap 3(L) 5 - 14 12/18/2021 13:39 [facility] Blood VENOUS BLOOD / Unknown Venipuncture / Unknown 12/18/2021 12:16 EDT 12/18/2021 12:24 EDT Allen Freeman MD CHEMISTRY & BLOOD GA S ORDERABLES Performing Organization Address City/State/[facility] Co de Phone Number [facility] [address] [place] [address] * (ABNORMAL) COMPLETE BLOOD COUNT AND DIFFERENTIAL (12/18/2021 12:16 EDT) WBC 6.78 4.00 - 12.40 K/cmm 12/18/2021 12:39 [facility] RBC 3.78(L) 3.86 - 5.04 M/cmm 12/18/2021 12:39 [facility] Hemoglobin 12.0 11.6 - 15.2 gm/dL 12/18/2021 12:39 [facility] HCT 35.1 34.9 - 44.4 % 12/18/2021 12:39 [facility] MCV 93 81 - 98 fl 12/18/2021 12:39 [facility] MCH 31.7 26.7 - 33.3 pg 12/18/2021 12:39 [facility] MCHC 34.2 32.1 - 35.9 gm/dL 12/18/2021 12:39 [facility] RDW-CV 13.8 <14.7 % 12/18/2021 12:39 [facility] RDW-SD 46.8 <50.4 fl 12/18/2021 12:39 [facility] PLT 222 141 - 377 K/cmm 12/18/2021 12:39 [facility] MPV 10.2 9.5 - 12.7 fl 12/18/2021 12:39 [facility] % Neutrophils 47.5 % 12/18/2021 12:39 [facility] % Lymphocytes 40.7 % 12/18/2021 12:39 [facility] % Monocytes 9.7 % 12/18/2021 12:39 [facility] % Eosinophils 1.2 % 12/18/2021 12:39 [facility] % Basophils 0.6 % 12/18/2021 12:39 [facility] % Immature Grans 0.3 % 12/19/19 12:39 [facility] Absolute Neutrophils 3.22 2.20 - 8.85 K/cmm 12/18/2021 12:39 [facility] Absolute Lymphocytes 2.76 1.09 - 3.30 K/cmm 12/18/2021 12:39 [facility] Absolute Monocytes 0.66 0.10 - 0.80 K/cmm 12/18/2021 12:39 [facility] Absolute Eosinophils 0.08 0.03 - 0.61 K/cmm 12/18/2021 12:39 [facility] ABS Basophils 0.04 0.01 - 0.11 K/cmm 12/18/2021 12:39 [facility] Absolute Immature Grans 0.02 0.00 - 0.06 K/cmm 12/18/2021 12:39 [facility] Type of Differential: Auto 12/18/2021 12:39 [facility] Blood VENOUS BLOOD / Unknown Venipuncture / Unknown 12/18/2021 12:16 EDT 12/18/2021 12:24 EDT Allen Freeman MD PACKAGES & DNA PROBE ORDERABLES [facility] [address] [place] [address] documented in this encounter Visit Diagnoses Diagnosis Acute right-sided low back pain without sciatica- Primary Right lower quadrant abdominal pain Abdominal pain, right lower quadrant documented in this encounter Administered Medications Inactive Administered Medications - up to 3 most recent administrations Medication Order MAR Action Action Date Dose Rate Site ketOROLAC (TORADOL) injection 15 mg 15 mg, intravenous, NOW X1, 1 dose, On 12/18/21 at 1345, STAT Given 12/18/2021 14:09 EDT 15 mg lidocaine 5 % (LIDODERM) patch 1 Patch 1 Patch, transdermal, Administer over 12 Hours, DAILY, First dose on 12/18/21 at 1130, Until Discontinued, STAT Patch Applied 12/18/2021 11:48 EDT 1 Patch Back methocarbamoL (ROBAXIN) tablet 750 mg 750 mg, oral, NOW X1, 1 dose, On 12/18/21 at 1200, STAT Given 12/18/2021 11:52 EDT 750 mg sodium chloride 0.9 % BOLUS 500 mL 500 mL, intravenous, NOW X1, 1 dose, On 12/18/21 at 1345, STAT New Bag 12/18/2021 14:10 EDT 500 mL documented in this encounter Active and Recently Administered Medications Times are shown in EDT. Scheduled Medication Order 12/16/2021 12/17/2021 12/18/2021 ketOROLAC (TORADOL) injection 15 mg (COMPLETED) 15 mg, intravenous, NOW X1, 1 dose, On 12/18/21 at 1345, STAT 1409 (Given - Provid er: Theresa Joaquin RN) lidocaine 5 % (LIDODERM) patch 1 Patch 1 Patch, transdermal, Administer over 12 Hours, DAILY, First dose on 12/18/21 at 1130, Until Discontinued, STAT 1148 (Patch Applied - Provider: Theresa Joaquin RN)2348 (Due: Patch Removed - Provider: Theresa Joaquin RN) methocarbamoL (ROBAXIN) tablet 750 mg (COMPLETED) 750 mg, oral, NOW X1, 1 dose, On 12/18/21 at 1200, STAT 1152 (Given - Provid er: Theresa Joaquin, EMMA) sodium chloride 0.9 % BOLUS 500 mL (COMPLETED) 500 mL, intravenous, NOW X1, 1 dose, On 12/18/21 at 1345, STAT 1410 (New Bag - Prov ider: Theresa Joaquin, EMMA) documented in this encounter Care Teams Account Manager Relief Relationship Specialty Start Date End Date Alina Santacruz MD [address] [place] [phone] PCP - General 08/17/21 documented as of this encounter
--- OUTSIDE RECORDS SUMMARY | 2023-12-31 16:47 | XMS_ITS | Encounter Summary ---
Author Organization [facility] Address [address] [place] [address] Care Team Providers Care Chairman & Chief Executive Officer Name Role Phone Gemma Arreola NP Primary Care Provider [phone] Encounter Details Date Type Department Care Team (Latest Contact Info) Description 04/18/2016 11:11 EST - 04/18/2016 23:59 EST Hospital Encounter [facility] [address] [place] [address] Unknown, Provider, Discharge Disposition: Home or Self Care Social History Tobacco Use Types Packs/Day Years Used Date Smoking Tobacco: Never Assessed Sex and Gender Information Value Date Recorded Sex Assigned at Not on file Gender Identity Female 08/17/2021 11:20 EDT Sexual Orientation Not on file documented as of this encounter Discharge Diagnoses Diagnosis Z01.89 Encounter for other specified special examinations-Z01.89[ICD-10-CM] documented in this encounter Discharge Disposition Disposition Code Departure Means Destination Home or Self Half-Way documented in this encounter Plan of Treatment Upcoming Encounters Date Type Department Care Team (Late st Contact Info) Description 01/07/2024 12:45 EDT Phlebotomy Only [facility] Hematology & Oncology - [address] [phone] Blood Doctor, [facility] Hem Onc 01/07/2024 13:30 EDT Office Visit [facility] Hematology & Oncology [address] [phone] Maria Alejandra Jung MD [address] [facility] [address] [place] [address] 01/16/2024 14:30 EDT [facility]ointment [facility] Breast Imaging Mammography - [address] [address] documented as of this encounter Visit Diagnoses Not on filedocumented in this encounter Care Teams Chairman & Chief Executive Officer Relationship Specialty Start Date End Date Gemma Arreola NP [address] [place] [phone] PCP - General 11/25/10 11/23/20 documented as of this encounter
--- OUTSIDE RECORDS SUMMARY | 2023-12-31 16:47 | XMS_ITS | Encounter Summary ---
Author Organization [facility] Address [address] [place] [address] Care Team Providers Care Funeral Pre Arrangement Counselor Name Role Phone Alina Santacruz MD Primary Care Provider [phone] Reason for Visit * Cardiology (Routine/Next Available) - Closed Specialty Diagnoses / Procedures Referred By Contac t Referred To Contact Nuclear Medicine Diagnoses Chest pain, unspecified type Procedures NM CARD SPECT NUCLEAR STRESS CHG MYOCARDIAL SPECT MULTIPLE STUDIES Alina Santacruz MD [address] [place] [address] [place] [phone] [facility] Referral ID Status Reason Start Date Expiration Date Visits Re quested Visits Authorized [id number] Closed 08/16/2021 06/03/2022 1 1 Encounter Details Date Type Department Care Team (Latest Contact Info) Description 08/25/2021 9:30 EDT Hospital Encounter [facility] [place] [address] Discharge Disposition: Home or Self Care Social [...] Only [facility] Hematology & Oncology [address] [address] Blood Doctor, [facility] Hem Onc 01/07/2024 13:30 EDT Office Visit [facility] Hematology & Oncology [address] [phone] Maria Alejandra Jung MD [address] [place] [address], Level 2 [place] [address] 01/16/2024 14:30 EDT Appointment [facility] Breast Imaging Mammography - [address] [phone] documented as of this encounter Procedures Procedure Name Priority Date/Time Associated Diagnosis Comments NM CARD SPECT PHARM STRESS ONLY SINGLE STUDY Routine 08/25/2021 12:18 EDT Chest pain, unspecified type documented in this encounter Visit Diagnoses Not on filedocumented in this encounter Administered Medications Inactive Administered Medications - up to 3 most recent administrations Medication Order MAR Action Action Date Dose Rate Site regadenoson (LEXISCAN) injection syringe 0.4 mg 0.4 mg, intravenous, NOW X1, 1 dose, On Geetha 08/25/21 at 1015, Routine Given 08/25/2021 10:39 EDT 0.4 mg documented in this encounter Historical Medications * This list may reflect changes made after this encounter. Medication Sig Dispensed Refills Start Date End Date atenoloL (TENORMIN) 100 mg tablet Take 1 Tablet by mouth daily. 06/17/2021 added in this encounter Care Teams Funeral Pre Arrangement Counselor Relationship Specialty Start Date End Date Alina Santacruz MD [address] [place] [phone] PCP - General 08/17/21 documented as of this encounter
--- OUTSIDE RECORDS SUMMARY | 2023-12-31 16:47 | XMS_ITS | Encounter Summary ---
Author Organization [facility] Address [address] [place] [address] Care Team Providers Care Char Dust Cleaner And Salvager Name Role Phone Alina Santacruz MD Primary Care Provider [phone] Reason for Referral * Consult (See Order Priority) - Authorization Not Required Specialty Diagnoses / Procedures Referred By Contac t Referred To Contact Orthopedic Surgery Diagnoses Chronic bilateral low back pain with left-sided sciatica Ayush Shirley PA-C [address] [place] [phone] [facility] [address] [place], [place] [address] [place] [address] Referral ID Status Reason Start Date Expiration Date Visits Requested Visits Authorized [id number] Authorization Not Required Specialty Services Required 2 1 1 Question Answer Reason for Request: Chronic low back pain and left lower extremity symptoms in an L4-5 distribution patient would like to discuss her surgical options * Consult (See Order Priority) - Closed Specialty Diagnoses / Procedures Referred By Contac t Referred To Contact Orthopedic Surgery Diagnoses Cervical spinal stenosis Ayush Shirley PA-C [address] [place] [phone] [facility] [address] [place] [address] Referral ID Status Reason Start Date Expiration Date V isits Requested Visits Authorized [id number] Closed Specialty Services Required 01/17/2022 1 1 Question Answer Reason for Request: Cervical MRI reveals a moderate degree of cervical stenosis at C5-6 what is your opinion as its significance it is not clear if this patient has myelopathy Reason for Visit * Reason Comments Back Pain LBP MRI f/u * Referral (Routine) - Receiving Office to Obtain Authorization Specialty Diagnoses / Procedures Referred By Radha casey Referred To Contact Orthopedic Surgery Diagnoses Chronic back pain Alina Santacruz MD [address] [phone] [facility] [address] [facility] [place] [address] Referral ID Status Reason Start Date Expiration Date Visits Requested Visits Authorized [id number] Receiving Office to Obtain Authorization 1 1 Encounter Details Date Type Department Care Team (Late st Contact Info) Description 01/17/2022 14:15 EDT Office Visit [facility] - [facility] [address] [place] [address] Ayush Shirley PA-C [address] [facility] [place] [address] Cervical spinal stenosis (Primary Dx); Chronic bilateral low back pain [...] 10:10 EDT documented as of this encounter Progress Notes * Ayush Shirley PA-C - 01/17/2022 1415 EDT Follow-up visit 01/17/2022 since her last visit [...] options and management of her symptoms. HPI ?? There is no problem list on file for this patient. ?? No past medical history on file. No past surgical history on file. ?? Social History ?? Tobacco Use ??? Smoking status: Current Every Day Smoker ? Packs/day: 0.50 ? Years: 21.00 ? Pack years: 10.50 ? Types: Cigarettes ??? Smokeless tobacco: Never Used Substance Use Topics ??? Alcohol use: Not on file ?? No family history on file. ?? Current Medications Current Outpatient Medications Medication Sig Dispense Refill ??? albuterol (PROAIR HFA) 90 mcg/actuation inhaler Inhale 180 mcg as directed every 4 hours. ? amitriptyline (ELAVIL) 25 mg tablet Take 25 mg by mouth daily. ? atenoloL (TENORMIN) 100 mg tablet Take 100 mg by mouth daily. ? atorvastatin (LIPITOR) 10 mg tablet Take 10 mg by mouth daily. ? Cholecalciferol, Vitamin D3, (VITAMIN D3) 50 mcg capsule Take 2,000 Units by mouth daily. ? clobetasoL (TEMOVATE) 0.05 % cream Apply topically 2 times daily. ? cyanocobalamin (VITAMIN B-12) 1,000 mcg tablet Take 1,000 mcg by mouth daily. ? DULoxetine (CYMBALTA) 60 mg capsule Take 60 mg by mouth daily. ? folic acid (FOLVITE) 1 mg tablet Take 1 mg by mouth daily. ? lisinopril (PRINIVIL) 2.5 mg tablet Take 2.5 mg by mouth daily. ? LORazepam (ATIVAN) 1 mg tablet Take 1 mg by mouth 3 times daily. ? morphine (MS CONTIN) 30 mg CR tablet Take 30 mg by mouth every 12 hours. ? naloxone (NARCAN) 4 mg/actuation nasal spray 1 [place] by nasal route as needed for Opioid Reversal. ? pregabalin (LYRICA) 150 mg capsule Take 150 mg by mouth 2 times daily. ? promethazine (PHENERGAN) 25 mg tablet Take 25 mg by mouth every 4 hours. ? tiotropium-olodateroL (STIOLTO RESPIMAT) 2.5-2.5 mcg/actuation inhaler Inhale as directed daily. ? No current facility-administered medications for this visit. ? No Known Allergies ?? Review of Systems Constitutional: Negative for activity change. Musculoskeletal: Positive for back pain and neck stiffness. Negative for neck pain. Neurological: Positive for weakness and numbness. ? Physical Exam Constitutional: General: She is not [...] somewhat droopy her speechis always somewhat slurred. ? Back Exam ?? Comments: Patient's gait is somewhat unsteady and guarded she walks with her knees somewhat flexed no palpable tenderness range of motion is full Romberg significant for mild wobble dynamic Romberg is negative I am not confident that she can tolerate tandem walking lower extremity strength is 5 outof 5 her soft touch is diminished entire left lower extremity reflexes are 2+ she has 3 beats of clonus Clarisa sign is positive on the right upper extremity reflexes are 2+ ? Neurologic Exam ?? Mental Status Oriented to person, place, and time. ?? Cranial Nerves ?? CN III, IV, Extraocular motions are normal. ? The prior workup of the patient includes: Cervical films reveal prior type II dens fracture also appears to have a chronic hangman fracture disc height is fairly well-preserved loss of cervical lordosis ?? Lumbar films reveal a question of a superior endplate fracture at L5 there is a moderate scoliotic curvature loss of lumbar lordosis and multilevel disc degeneration ?? MRI lumbar spine 2019 reveals severe foraminal [...] minimal cerebrospinal fluid present in the canal Assessment Patient without neck pain but symptoms of cervical myelopathy with balance problems difficulty withcoordination. Not clear to me that the degree of cervical stenosis is enough to account for her symptoms and I like to gain the opinion of a surgeon as to whether this is significant or not. Low back discomfort and left lower extremity burning. Patient is begging to speak with a surgeon she wants to consider any intervention that would be helpful in alleviating her symptoms. I noted thatit would be reasonable to speak with a surgeon but is not clear to me that she has an obvious surgical candidate. She is not interested in other conservative measures such as injections Plan Surgical consult to discuss cervical stenosis and its role in her issues with balance and coordination A second surgical consult to gain their opinion as to whether the root compression at L4-5 and L5-S1 would account for her left lower extremity symptoms and whether or not surgery would be helpful Pain management per primary doctor Activity as tolerated without limitation Follow-up with me as needed Dr. Sheriff was available for consultation but was not consulted I spent a total of 35 minutes on the date of this encounter meeting with the patient and reviewing documentation/coordinating care as described in the above note. documented in this encounter Plan of Treatment Upcoming Encounters Date Type Department Care Team (Late st Contact Info) Description 01/07/2024 12:45 EDT Phlebotomy Only [facility] Hematology & Oncology - [address] [phone] Blood Doctor, [facility] Hem Onc 01/07/2024 13:30 EDT Office Visit [facility] Hematology & Oncology - [address] [phone] Maria Alejandra Jung MD [address] [place] [address], Level 2 [place] [address] 01/16/2024 14:30 EDT [facility]ointment [facility] Breast Imaging Mammography - [address] [phone] Scheduled Referrals Name Type Priority Associated Diagnoses Order Schedule AMB CONS/FOLLOW UP ORTHOPEDICS - [facility] Outpatient Referral Routine/Next Available Cervical spinal stenosis Expected: 02/17/2022 (Approximate), Expires: 01/17/2023 AMB CONS/FOLLOW UP ORTHOPEDICS - [facility] Outpatient Referral Routine/Next Available Chronic bilateral low back pain with left-sided sciatica Expected: 01/24/2022 (Approximate), Expires: 01/17/2023 documented as of this encounter Visit Diagnoses Diagnosis Cervical spinal stenosis- Primary Spinal stenosis in cervical region Chronic bilateral low back pain with left-sided sciatica documented in this encounter Discontinued Medications Medication Sig Discontinue Reason Start Date End Da te lisinopril (PRINIVIL) 2.5 mg tablet Take 2.5 mg by mouth daily. Therapy completed 01/17/2022 documented as of this encounter Historical Medications * This list may reflect changes made after this encounter. Medication Sig Dispensed Refills Start Date End Date fosinopriL-hydrochlorothia zide (MONOPRIL-HCT) 10-12.5 mg per tablet Take 1 Tablet by mouth daily. added in this encounter Care Teams Char Dust Cleaner And Salvager Relationship Specialty Start Date End Date Alina Santacruz MD [address] [place] [phone] PCP - General 08/17/21 documented as of this encounter
--- OUTSIDE RECORDS SUMMARY | 2023-12-31 16:47 | XMS_ITS | Encounter Summary ---
Author Organization [facility] Address [address] [place] [address] Care Team Providers Care Miller Apprentice Name Role Phone Gemma Arreola EMBOSSING MACHINE OPERATOR Primary Care Provider [phone] Reason for Visit * Reason Onset Date Comments Appointment Related 09/10/2018 Encounter Details Date Type Department Care Team (Late Contact Info) Description 09/10/2018 Telephone [facility] Neurology - [address] [phone] Unknown, Provider, Appointment Related Social History Tobacco Use Types Packs/Day Years Used Date Smoking Tobacco: Never Assessed Sex and Gender Information Value Date Recorded Sex Assigned at Not on file Gender Identity Female 08/17/2021 11:20 EDT Sexual Orientation Not on file documented as of this encounter Miscellaneous Notes * Telephone Encounter - Trey Tomas - 09/10/2018 1146 EDT Spoke with Danielle looking to schedule NPV apt. She advised that she has already seen a neurologist closer to where she lives and will not be needing this apt. Requested referral be closed. She will kishan back if anything changes documented in this encounter Plan of Treatment Upcoming Encounters Date Type Department Care Team ([facility] Contact Info) Description 01/07/2024 12:45 EDT Phlebotomy Only [facility] Hematology & Oncology - Main [place] [address] [place] [address] Blood Doctor, [facility] Hem Onc 01/07/2024 13:30 EDT Office Visit [facility] Hematology & Oncology - [address] [phone] Maria Alejandra Jung MD [address] [place] [address], Level [address] [place] [phone] 01/16/2024 14:30 EDT Appointment [facility] Breast Imaging Mammography - [address] [phone] documented as of this encounter Visit Diagnoses Not on filedocumented in this encounter Care Teams Miller Apprentice Relationship Specialty Start Date End Date Gemma Arreola EMBOSSING MACHINE OPERATOR [address] [place] [phone] PCP - General 11/25/10 11/23/20 documented as of this encounter
--- OUTSIDE RECORDS SUMMARY | 2023-12-31 16:47 | XMS_ITS | Encounter Summary ---
Author Organization [facility] Address [address] [place] [address] Care Team Providers Care Assistant Operator Name Role Phone Alina Santacruz MD Primary Care Provider [phone] Encounter Details Date Type Department Care Team (Late Contact Info) Description 11/16/2021 Transcribe Orders [facility] Endocrinology - [address] [address] Kimberly Nichols MA Social History Tobacco Use Types Packs/Day Years [...] Upcoming Encounters Date Type Department Care Team ([facility] Contact Info) Description 01/07/2024 12:45 EDT Phlebotomy Only [facility] Hematology & Oncology - [address] [phone] Blood Doctor, [facility] Hem Onc 01/07/2024 13:30 EDT Office Visit [facility] Hematology & Oncology - [address] [phone] Maria Alejandra Jung MD [address] [place] [address], Level [address] [place] [phone] 01/16/2024 14:30 EDT [facility]ointment [facility] Breast [facility] Mammography - [address] [address] documented as of this encounter Visit Diagnoses Not on filedocumented in this encounter Care Teams Assistant Operator Relationship Specialty Start Date End Date Alina Santacruz MD [address] [place] [phone] PCP - General 08/17/21 documented as of this encounter
--- OUTSIDE RECORDS SUMMARY | 2023-12-31 16:47 | XMS_ITS | Encounter Summary ---
Author Organization [facility] Address [address] [place] [address] Care Team Providers Care Line Runner Name Role Phone Unknown, Provider Primary Care Provider [phone] Encounter Details Date Type Department Care Team (Late Contact Info) Description 11/23/2010 Results Only [facility] Laboratory Services - [facility] [place] [facility] [address] [place], [place] [phone] Chava Murdock MD [address] [place] [phone] Social History Tobacco Use Types Packs/Day Years Used Date Smoking Tobacco: Never Assessed Sex and Gender Information Value Date Recorded Sex Assigned at Not on file Gender Identity Female 08/17/2021 11:20 EDT Sexual Orientation Not on file documented as of this encounter Plan of Treatment Upcoming Encounters Date Type Department Care Team ([facility] Contact Info) Description 01/07/2024 12:45 EDT Phlebotomy Only [facility] Hematology & Oncology - [address] [phone] Blood Doctor, [facility] Hem Onc 01/07/2024 13:30 EDT Office Visit [facility] Hematology & Oncology - [address] [phone] Maria Alejandra Jung MD [address] [facility], Level [address] [place] [phone] 01/16/2024 14:30 EDT [facility]ointment [facility] Mammography - Main [place] [address] [place] [address] documented as of this encounter Procedures Procedure Name Priority Date/Time Associated Diagnosis Comments SURGICAL PATHOLOGY Routine 11/23/2010 0:00 EDT documented in this encounter Results * SURGICAL PATHOLOGY (11/23/2010 0:00 EDT) Pathology Report: SURGICAL PATHOLOGY REPORT ? Reports generated via electronic interface contain original data; ? however they are lacking the format of the original report. ? Caution should be taken when reading/interpreti ng unformatted reports. ? Name: ? DANIELLE GILMAN ? Accession #: ? [id number] ? : ? 1955 (Age: 55) ??F ? Collect Date: ? 11/23/2010 ? Location: ? [facility] ? Receive Date: ? 11/24/2010 ? Provider: CHAVA VANI MD ? Copy to: NAYELY LAN MD ? Final Pathologic Diagnosis: ? Oral mucosa, palate, biopsy: ? 1. ?Fragments of benign squamous mucosa with reactive changes and ? evidence of erosion. ?- PAS stain for micro-organisms is negative. See comment. ? Comment: ? Appropriate controls were used. (Dr. Orta). ? Document reviewed and electronically signed by: ? BENJIE ORTA MD ? Report ??Date: 11/28/2010 16:59 ? By the signature above, the attending physician certifies that he/she has ? personally conducted a gross and/or microscopic examination of the described ? specimens and rendered or confirmed the above diagnosis. ? Specimen(s) Received: ? Biopsy palatal lesion ? Clinical History: ? Erosive palatal lesion, presumably arising in incisive cyst; hx Hep C, ? tobacco ? Gross Description: ? Received in formalin labelled Charles, Danielle and erosive palatal lesion are 0.6 x 0.4 x 0.4 cm aggregate of garza-white soft tissue fragments and ? red-brown, hemorrhagic material. ??The specimen is entirely submitted in a single cassette following filtration. ??(Nidia Camargo)/kmm ? End of Report ? [facility] 11/23/2010 11/24/2010 9:0 0 EDT Chava Murdock MD PATHOLOGY ORDERABLES Performing Organization Address City/State/[facility] Co de Phone Number [facility] [address] [place] [address] documented in this encounter Visit Diagnoses Not on filedocumented in this encounter Care Teams Line Runner Relationship Specialty Start Date End Date Unknown, Provider, PCP - General 11/24/10 11/24/10 documented as of this encounter
--- OUTSIDE RECORDS SUMMARY | 2023-12-31 16:47 | XMS_ITS | Encounter Summary ---
Author Organization [facility] Address [address] [place] [address] Care Team Providers Care Director Process Engineering Name Role Phone Ayush Ye MD Primary Care Provider Reason for Visit * Reason Onset Date Comments Appointment Related 02/03/2021 Encounter Details Date Type Department Care Team (Late Contact Info) Description 02/03/2021 [facility] Center Breast Imaging Mammography - [address] [address] Brandy Wasserman Appointment Related Social History Tobacco Use Types [...] encounter Miscellaneous Notes * Telephone Encounter - Brandy Wasserman - 02/03/2021 1111 EDT Spoke to patient to schedule follow up mammo due in November 2020. Patient would like to call us when she is ready to schedule. Provided her with our direct call back number. documented in this encounter Plan of Treatment Upcoming Encounters Date Type Department Care Team (Late Contact Info) Description 01/07/2024 12:45 EDT Phlebotomy Only [facility] Hematology & Oncology - [address] [phone] Blood Doctor, [facility] Hem Onc 01/07/2024 13:30 EDT Office Visit [facility] Cancer Center Hematology & Oncology - [address] [phone] Maria Alejandra Jung MD 111 [facility], [address] [place] [phone] 01/16/2024 14:30 EDT Appointment [facility] Center Breast Imaging Mammography - [address] [address] documented as of this encounter Visit Diagnoses Not on filedocumented in this encounter Care Teams Director Process Engineering Relationship Specialty Start Date End Date Ayush Ye MD [address] [place] [phone] PCP - General Family Medicine - Primary Care 11/24/20 08/16/21 documented as of this encounter
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
--- OUTSIDE RECORDS SUMMARY | 2023-12-31 16:47 | XMS_ITS | Encounter Summary ---
Author Organization [facility] Address [address] [place] [address] Care Team Providers Care Chief Communications Officer Name Role Phone Gemma Arreola NP Primary Care Provider [phone] Reason for Visit * (Routine) - Receiving Office to Obtain Authorization Specialty Diagnoses / Procedures Referred By Radha casey Referred To Contact Procedures MA BREAST OUTSIDE IMAGES Unknown, Provider, Referral ID Status Reason Start Date Expiration Date Visits Requested Visits Authorized [id number] Receiving Office to Obtain Authorization 01/01/2021 1 1 Encounter Details Date Type Department Care Team (Latest Contact Info) Description 05/19/2020 - 05/19/2020 23:59 EST Hospital Encounter [facility] Secondary Reads [place] Discharge Disposition: Home or [...] [facility] Hematology & Oncology [address] [address] Blood Doctor, [facility] Hem Onc 01/07/2024 13:30 EDT Office Visit [facility] Hematology & Oncology [address] [address] Maria Alejandra Jung MD 111 [facility], [facility], Level [address] [place] [address] 01/16/2024 14:30 EDT Appointment [facility] Breast Imaging Mammography - [facility] [address] [place], [place] [phone] documented as of this encounter Procedures Procedure Name Priority Date/Time Associated Diagnosis Comments MA OUTSIDE IMAGES BREAST OTHER Routine 01/01/2021 12:03 EDT documented in this encounter Results * MA BREAST OUTSIDE IMAGES (01/01/2021 12:03 EDT) Narrative 01/01/2021 12:03 EDT This is a non-reportable exam. Provider Unknown MD [facility] OTHER IMAGING OR DERABLES documented in this encounter Visit Diagnoses Not on filedocumented in this encounter Care Teams Chief Communications Officer Relationship Specialty Start Date End Date Gemma Arreola NP [address] [place] [phone] PCP - General 11/25/10 11/23/20 documented as of this encounter
--- OUTSIDE RECORDS SUMMARY | 2023-12-31 16:47 | XMS_ITS | Encounter Summary ---
Author Organization [facility] Address [address] [place] [address] Care Team Providers Care Director Specialty Name Role Phone Gemma Arreola NP Primary Care Provider [phone] Reason for Visit * (Routine) - Receiving Office to Obtain Authorization Specialty Diagnoses / Procedures Referred By Radha casey Referred To Contact Procedures MA BREAST OUTSIDE IMAGES Unknown, Provider, Referral ID Status Reason Start Date Expiration Date Visits Requested Visits Authorized [id number] Receiving Office to Obtain Authorization 01/01/2021 1 1 Encounter Details Date Type Department Care Team (Latest Contact Info) Description 05/26/2020 Hospital Encounter [facility] Secondary Read[place] Discharge Disposition: Home or [...] Only [facility] Hematology & Oncology [address] [phone] Blood Doctor, [facility] Hem Onc 01/07/2024 13:30 EDT Office Visit [facility] Hematology & Oncology [address] [phone] Maria Alejandra Jung MD 111 [facility], [facility], Level [address] [place] [phone] 01/16/2024 14:30 EDT Appointment [facility] Center Breast Imaging Mammography - [facility] [address] [place], [place] [address] documented as of this encounter Procedures Procedure Name Priority Date/Time Associated Diagnosis Comments MA OUTSIDE IMAGES BREAST OTHER Routine 01/01/2021 12:04 EDT documented in this encounter Results * MA BREAST OUTSIDE IMAGES (01/01/2021 12:04 EDT) Narrative 01/01/2021 12:04 EDT This is a non-reportable exam. Provider Unknown MD [facility]OP[facility] OTHER IMAGING OR DERABLES documented in this encounter Visit Diagnoses Not on filedocumented in this encounter Care Teams Director Specialty Relationship Specialty Start Date End Date Gemma Arreola NP [address] [place] [phone] PCP - General 11/25/10 11/23/20 documented as of this encounter
--- OUTSIDE RECORDS SUMMARY | 2023-12-31 16:47 | XMS_ITS | Encounter Summary ---
Author Organization [facility] Address [address] [place] [address] Care Team Providers Care Raw Stock Drier Tender Name Role Phone Ayush Ye MD Primary Care Provider Reason for Visit * Reason Onset Date Comments Appointment Related 04/25/2021 Encounter Details Date Type Department Care Team (Late Contact Info) Description 04/25/2021 [facility]phone [facility] Breast Imaging Mammography - [address] [phone] Merline Jean Appointment Related Social History Tobacco Use Types [...] encounter Miscellaneous Notes * Telephone Encounter - Merline Jean - 04/25/2021 1347 EST Left message to call back to schedule dx mammo documented in this encounter Plan of Treatment Upcoming Encounters Date Type Department Care Team (Late Contact Info) Description 01/07/2024 12:45 EDT Phlebotomy Only [facility] Hematology & Oncology [address] [phone] Blood Doctor, [facility] Hem Onc 01/07/2024 13:30 EDT Office Visit [facility] Hematology & Oncology - [address] [address] Maria Alejandra Jung MD 111 [facility], [facility], Level [address] [place] [phone] 01/16/2024 14:30 EDT Appointment [facility] Breast Imaging Mammography - [address] [phone] documented as of this encounter Visit Diagnoses Not on filedocumented in this encounter Care Teams Raw Stock Drier Tender Relationship Specialty Start Date End Date Ayush Ye MD [address] [place] [phone] PCP - General Family Medicine - Primary Care 11/24/20 08/16/21 documented as of this encounter
--- OUTSIDE RECORDS SUMMARY | 2023-12-31 16:47 | XMS_ITS | Encounter Summary ---
Author Organization [facility] Address [address] [place] [address] Care Team Providers Care Legal Executive Name Role Phone Alina Santacruz MD Primary Care Provider [phone] Reason for Referral * Radiology Services (Routine/Next Available) - Specialty Report Received Specialty Diagnoses / Procedures Referred By Contaudi t Referred To Contact Diagnoses Vitamin D deficiency Osteopenia of multiple sites Procedures DXA DUAL XRAY ABSORPTIOMETRY FOR BONE DENSITY [facility]) Alina Santacruz MD [address] [phone] Referral ID Status Reason Start Date Expiration Date V isits Requested Visits Authorized [id number] Specialty Report Received 10/10/2021 1 1 Encounter Details Date Type Department Care Team (Late st Contact Info) Description 10/10/[address] [facility] Endocrinology - [address] [address] Alina Santacruz MD [address] [phone] Osteopenia of multiple sites (Primary Dx); Vitamin D deficiency Social History Tobacco Use Types Packs/Day Years [...] [facility] Hematology & Oncology [address] [address] Blood Doctor, [facility] Hem Onc 01/07/2024 13:30 EDT Office Visit [facility] Hematology & Oncology [address] [address] Maria Alejandra Jung MD [address] [place] [address], [facility] [place] [facility], Level [address] [place] [phone] 01/16/2024 14:30 EDT Appointment [facility] Breast Imaging Mammography [address] [phone] documented as of this encounter Results * DXA DUAL XRAY ABSORPTIOMETRY FOR BONE DENSITY ([facility] PERFORMED) (11/16/2021) DEXA Bone Density DEXA Bone Density, External Anatomical Region Laterality Modality Other Alina Santacruz MD IMG DEXA ORDERABLES documented in this encounter Visit Diagnoses Diagnosis Osteopenia of multiple sites- Primary Vitamin D deficiency Unspecified vitamin D deficiency documented in this encounter Care Teams Legal Executive Relationship Specialty Start Date End Date Alina Santacruz MD [address] [place] [phone] PCP - General 08/17/21 documented as of this encounter
--- OUTSIDE RECORDS SUMMARY | 2023-12-31 16:47 | XMS_ITS | Encounter Summary ---
Author Organization [facility] Address [address] [place] [address] Care Team Providers Care Wire Weaver Cloth Name Role Phone Alina Santacruz MD Primary Care Provider [phone] Reason for Visit * (Routine/Next Available) - Receiving Office to Obtain Authorization Specialty Diagnoses / Procedures Referred By Radha casey Referred To Contact Procedures MR OUTSIDE IMAGES NEURO MR OUTSIDE IMAGES NEURO Unknown, Provider, Referral ID Status Reason Start Date Expiration Date Visits Requested Visits Authorized [id number] Receiving Office to Obtain Authorization 10/10/2021 1 1 Encounter Details Date Type Department Care Team (Latest Contact Info) Description 10/09/2021 - 10/09/2021 23:59 EDT Hospital Encounter [facility] Secondary [place] Discharge Disposition: Home or [...] Upcoming Encounters Date Type Department Care Team ( st Contact Info) Description 01/07/2024 12:45 EDT Phlebotomy Only [facility] Hematology & Oncology - [address] [address] Blood Doctor, [facility] Hem Onc 01/07/2024 13:30 EDT Office Visit [facility] Hematology & Oncology - [address] [phone] Maria Alejandra Jung MD [address] [place] [address], [address] [place] [phone] 01/16/2024 14:30 EDT Appointment [facility] Breast Imaging Mammography - [address] [phone] documented as of this encounter Visit Diagnoses Not on filedocumented in this encounter Care Teams Wire Weaver Cloth Relationship Specialty Start Date End Date Alina Santacruz MD [address] [place] [phone] PCP - General 08/17/21 documented as of this encounter
--- OUTSIDE RECORDS SUMMARY | 2023-12-31 16:47 | XMS_ITS | Encounter Summary ---
Author Organization [facility] Address [address] [place] [address] Care Team Providers Care Underground Heavy Equipment Operator Name Role Phone Alina Santacruz MD Primary Care Provider [phone] Encounter Details Date Type Department Care Team (Latest Contact Info) Description 02/20/2022 14:05 EDT - 02/20/2022 23:59 EDT Hospital Encounter [address] X[address] [place] [address] Low back pain, unspecified back pain laterality, [...] Info) Description 01/07/2024 12:45 EDT Phlebotomy Only [facility] Hematology & Oncology - [address] [id number] Blood Doctor, [facility] Hem Onc 01/07/2024 13:30 EDT Office Visit [facility] Hematology & Oncology [address] [phone] Maria Alejandra Jung MD [address] [place] [address], Level [address] [place] [phone] 01/16/2024 14:30 EDT [facility] Mammography - [address] [phone] documented as of this encounter Procedures Procedure Name Priority Date/Time Associated Diagnosis Comments XR LUMBAR SPINE BENDING VIEWS, 2 OR 3 VIEWS Routine 02/20/2022 14:56 EDT Low back pain, unspecified back pain [...] present documented in this encounter Care Teams Underground Heavy Equipment Operator Relationship Specialty Start Date End Date Alina Santacruz MD [address] [place] [phone] PCP - General 08/17/21 documented as of this encounter
--- OUTSIDE RECORDS SUMMARY | 2023-12-31 16:47 | XMS_ITS | Encounter Summary ---
Author Organization [facility] Address [address] [place] [address] Care Team Providers Care Tuft Machine Operator Name Role Phone Ayush Ye MD Primary Care Provider Alina Santacruz MD Primary Care Provider [phone] Encounter Details Date Type Department Care Team (Late st Contact Info) Description 07/16/2021 Lab Requisition [facility] Pathology & Laboratory Medicine [address] [phone] Outr Resulting Lab, Provider Social History Tobacco [...] Info) Description 01/07/2024 12:45 EDT Phlebotomy Only [facility] Hematology & Oncology [address] [phone] Blood Doctor, [facility] Hem Onc 01/07/2024 13:30 EDT Office Visit [facility] Hematology & Oncology [address] [phone] Maria Alejandra Jung MD [address] [place] [address], Level 2 [place] [phone] 01/16/2024 14:30 EDT Appointment [facility] Breast Imaging Mammography - [address] [phone] documented as of this encounter Procedures Procedure Name Priority Date/Time Associated Diagnosis Comments HIV 1/2 ANTIGEN AND ANTIBODY, 4TH GENERATION Routine 07/15/2021 11:00 EST documented in this encounter Results * HIV 1/2 ANTIGEN AND ANTIBODY, 4TH GENERATION (07/15/2021 11:00 EST) HIV 1 and 2 Antibody/p24 Antigen, 4th Generation Negative Negative 07/18/2021 10:02 EST [facility] Comment:If acute HIV-1 infec tion is suspected in a high risk patient, submit plasma specimen for HIV-1 RNA quantitation test. Blood VENOUS BLOOD / Unknown 07/15/2021 11:00 EST 07/16/2021 21:30 EST Narrative [facility] - 07/18/2021 10:02 EST Fourth Generation assay performed on the Siemens Centaur XPT. Provider Outr Resulting Lab IMMUNOLOGY A ND SEROLOGY ORDERABLES [facility] [address] [place] [address] documented in this encounter Visit Diagnoses Not on filedocumented in this encounter Additional Health Concerns Infection Onset Date Last Indicated Resolved Time Rule-Out C. difficile 10/30/2022 10/30/20222022 13:17 EDT documented as of this encounter Care Teams Tuft Machine Operator Relationship Specialty Start Date End Date Ayush Ye MD [address] [place] [phone] PCP - General Family Medicine - Primary Care 11/24/20 08/16/21 Alina Santacruz MD [address] [place] [phone] PCP - General 08/17/21 documented as of this encounter
--- OUTSIDE RECORDS SUMMARY | 2023-12-31 16:47 | XMS_ITS | Encounter Summary ---
Author Organization [facility] Address [address] [place] [address] Care Team Providers Care Rn Delivery Name Role Phone Alina Santacruz MD Primary Care Provider [phone] Reason for Referral * Radiology Services (Routine/Next Available) - Authorization Not Required Specialty Diagnoses / Procedures Referred By Contac t Referred To Contact Radiology Diagnoses Cervical myelopathy ([facility]) Procedures MR CERVICAL SPINE WO CONTRAST Ayush Shirley PA-C [address] [place] [phone] [facility] Referral ID Status Reason Start Date Expiration Date Visits Requested Visits Authorized [id number] Authorization Not Required 12/07/2021 1 1 * Radiology Services (Routine/Next Available) - Authorization Not Required Specialty Diagnoses / Procedures Referred By Contac t Referred To Contact Radiology Diagnoses Chronic bilateral low back pain with left-sided sciatica Procedures MR LUMBAR SPINE WO CONTRAST Ayush Shirley PA-C [address] [place] [address] [facility] Referral ID Status Reason Start Date Expiration Date Visits Requested Visits Authorized [id number] Authorization Not Required 12/07/2021 1 1 Reason for Visit * Reason Comments Pain * Referral (Routine) - Receiving Office to Obtain Authorization Specialty Diagnoses / Procedures Referred By Contac t Referred To Contact Orthopedic Surgery Diagnoses Chronic back pain Alina Santacruz MD [address] [phone] [facility] Ortho Spine [address] [place] [address] Referral ID Status Reason Start Date Expiration Date Visits Requested Visits Authorized [id number] Receiving Office to Obtain Authorization 1 1 Encounter Details Date Type Department Care Team (Late st Contact Info) Description 12/07/2021 14:00 EDT Office Visit [facility] Spine Program - [address] [place] [address] Ayush Shirley PA-C [address] [facility] [place] [phone] Chronic bilateral low back pain with left-sided sciatica (Primary Dx); Neck pain; Cervical myelopathy (HCC-CMS) (HCC) (HCC-CMS) Social History Tobacco Use Types Packs/Day Years [...] Progress Notes * Ayush Shirley PA-C - 12/07/2021 1400 EDT Danielle Soto is being seen as a consultation from Dr. Santacruz. Chief Complaint Patient presents with ??? Lower Back - Pain The primary encounter diagnosis was Chronic bilateral low back pain with left- sided sciatica. A diagnosis of Neck pain was also pertinent to this visit. HPI patient with chronic back pain and [...] history on file. Social History Tobacco Use ??? Smoking status: Current Every Day Smoker Packs/day: 0.50 Years: 21.00 Pack years: 10.50 Types: Cigarettes ??? Smokeless tobacco: Never Used Substance Use Topics ??? Alcohol use: Not on file No family history on file. Current Outpatient Medications Medication Sig Dispense Refill ??? albuterol (PROAIR HFA) 90 mcg/actuation inhaler Inhale 180 mcg as directed every 4 hours. ??? amitriptyline (ELAVIL) 25 mg tablet Take 25 mg by mouth daily. ??? atenoloL (TENORMIN) 100 mg tablet Take 100 mg by mouth daily. ??? atorvastatin (LIPITOR) 10 mg tablet Take 10 mg by mouth daily. ??? Cholecalciferol, Vitamin D3, (VITAMIN D3) 50 mcg capsule Take 2,000 Units by mouth daily. ??? clobetasoL (TEMOVATE) 0.05 % cream Apply topically 2 times daily. ??? cyanocobalamin (VITAMIN B-12) 1,000 mcg tablet Take 1,000 mcg by mouth daily. ??? DULoxetine (CYMBALTA) 60 mg capsule Take 60 mg by mouth daily. ??? folic acid (FOLVITE) 1 mg tablet Take 1 mg by mouth daily. ??? lisinopril (PRINIVIL) 2.5 mg tablet Take 2.5 mg by mouth daily. ??? LORazepam (ATIVAN) 1 mg tablet Take 1 mg by mouth 3 times daily. ??? morphine (MS CONTIN) 30 mg CR tablet Take 30 mg by mouth every 12 hours. ??? naloxone (NARCAN) 4 mg/actuation nasal spray 1 [place] by nasal route as needed for Opioid Reversal. ??? pregabalin (LYRICA) 150 mg capsule Take 150 mg by mouth 2 times daily. ??? promethazine (PHENERGAN) 25 mg tablet Take 25 mg by mouth every 4 hours. ??? tiotropium-olodateroL (STIOLTO RESPIMAT) 2.5-2.5 mcg/actuation inhaler Inhale [...] slurred. Back Exam Comments: Patient's gait is somewhat unsteady and [...] the right upper extremity reflexes are 2+ Neurologic Exam Mental Status Oriented to person, [...] and multilevel disc degeneration MRI lumbar spine 2020 reveals severe foraminal narrowing at L4-5 and L5-S1 on the left no central canal stenosis Assessment Patient with chronic pain very sedentary lifestyle. Patient with some neck discomfort hyperreflexiapositive Clarisa's and clonus with gait instability suspicious for cervical myelopathy at this point we will move forward with a cervical MRI to rule out cervical stenosis Back and left lower extremity symptoms result of an L4-5 radiculopathy and suspicious she may have a new disc herniation and likely order a lumbar MRI. At this point she has had injections in the past and is not interested in further injections. If surgery is an option she would like to speak with surgery to discuss her surgical options. Other Orders Placed This Visit Procedures ??? XR LUMBAR SPINE 2-3 VIEWS ??? XR CERVICAL SPINE 4-5 VIEWS Plan: Cervical MRI and evaluation of cervical stenosis Lumbar MRI and consideration of surgical consultation post Follow-up me once her scans are complete Activity as tolerated Pain management per primary doctor I think it is reasonable to continue weaning off of morphine at 10 %/week if the primary doctor agrees We discussed injection therapy at this point she is not eager to move forward with injections. Dr. Flores was available for consultation but was not consulted documented in this encounter Plan of Treatment Upcoming Encounters Date Type Department Care Team (Late st Contact Info) Description 01/07/2024 12:45 EDT Phlebotomy Only [facility] Hematology & Oncology [address] [address] Blood Doctor, [facility] Hem Onc 01/07/2024 13:30 EDT Office Visit [facility] Hematology & Oncology [address] [address] Maria Alejandra Jung MD [address] [place] [address], Level [address] [place] [phone] 01/16/2024 14:30 EDT [facility] Breast Imaging Mammography [address] [address] documented as of this encounter Procedures Procedure Name Priority Date/Time Associated Diagnosis Comments XR CERVICAL SPINE 4-5 VIEWS Routine 12/07/2021 14:57 EDT Neck pain XR LUMBAR SPINE 2-3 VIEWS Routine 12/07/2021 [...] andagree with the findings. Ayush Shirley PA-C Skip MRI ORDERABLES * MR LUMBAR SPINE WO CONTRAST (12/28/2021 [...] findings. Ayush Shirley PA-C IMSkip MRI ORDERABLES * XR CERVICAL SPINE 4-5 VIEWS (12/07/2021 [...] arthropathy. No apparent fracture. Ayush Shirley PA-C [facility]MS[facility] DIAGNOSTIC IMAGI NG ORDERABLES * XR LUMBAR SPINE 2-3 VIEWS (12/07/2021 [...] Vascular calcifications are present. Ayush Shirley PA-C IMG DIAGNOSTIC IMAGI NG ORDERABLES documented in this encounter Visit Diagnoses Diagnosis Chronic bilateral low back pain with left-sided sciatica- Primary Neck pain Cervicalgia Cervical myelopathy (HCC-CMS) Cervical spondylosis with myelopathy Chronic bilateral low back pain with left-sided sciatica Cervical myelopathy (HCC-CMS) Cervical spondylosis with myelopathy documented in this encounter Historical Medications * This list may reflect changes made after this encounter. Medication Sig Dispensed Refills Start Date End Date clobetasoL (TEMOVATE) 0.05 % cream Apply topically 2 times daily. folic acid (FOLVITE) 1 mg tablet Take 1 Tablet by mouth daily. cyanocobalamin (VITAMIN B-12) 1,000 mcg tablet Take 1 Tablet by mouth daily. Cholecalciferol, Vitamin D3, 50 mcg capsule Take 1 Capsule by mouth daily. naloxone (NARCAN) 4 mg/actuation nasal spray 0.1 mL by nasal route as needed for Opioid Reversal. promethazine (PHENERGAN) 25 mg tablet Take 25 mg by mouth every 4 hours. albuterol 90 mcg/actuation inhaler Inhale 180 mcg as directed every 4 hours. DULoxetine (CYMBALTA) 60 mg capsule Take 1 Capsule by mouth daily. pregabalin (LYRICA) 150 mg capsule Take 1 Capsule by mouth 2 times daily. atorvastatin (LIPITOR) 10 mg tablet Take 1 Tablet by mouth daily. LORazepam (ATIVAN) 1 mg tablet Take 1 Tablet by mouth every 4 hours as needed. amitriptyline (ELAVIL) 25 mg tablet Take 25 mg by mouth daily. tiotropium-olodateroL (STIOLTO RESPIMAT) 2.5-2.5 mcg/actuation inhaler Inhale as directed daily. morphine (MS CONTIN) 30 mg CR tablet Take 1 Tablet by mouth every 12 hours. lisinopril (PRINIVIL) 2.5 mg tablet Take 2.5 mg by mouth daily. 01/17/2022 added in this encounter Care Teams Rn Delivery Relationship Specialty Start Date End Date Alina Santacruz MD [address] [place] [phone] PCP - General 08/17/21 documented as of this encounter
== END 2023-12-31 16:33 | disposition home or self-care (01) ==
LOC: NCHCN 16:32
PROVIDERS: PCP Family Medicine; Visit Provider Family Medicine
DX: N76.0 Acute vaginitis (principal)
CPT/HCPCS: 87480; 87510; 87660

== ENCOUNTER 2024-01-28 18:20 | Outpatient (REF) | payer MEDICARE, MEDICAID, SELFPAY ==
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
--- OUTSIDE RECORDS SUMMARY | 2024-01-28 18:24 | XMS_ITS | Encounter Summary ---
Author Organization [facility] Address [address] [place] [id number] Care Team Providers Care Student Ministry Pastor Name Role Phone Alina Santacruz MD Primary Care Provider [phone] Reason for Referral * Radiology Services (Routine/Next Available) - Authorization Not Required Specialty Diagnoses / Procedures Referred By Contac t Referred To Contact Diagnoses Left foot pain Procedures XR FOOT LEFT 3 OR MORE VIEWS Nikolas Velásquez MD [address] [place] [address] [facility] Referral ID Status Reason Start Date Expiration Date Visits Requested Visits Authorized [id number] Authorization Not Required 01/01/2024 1 1 Reason for Visit * Radiology Services (Routine/Next Available) - Authorization Not Required Specialty Diagnoses / Procedures Referred By Contac t Referred To Contact Diagnoses Left foot pain Procedures XR FOOT LEFT 3 OR MORE VIEWS Nikolas Velásquez MD [address] [place] [address] [facility] Referral ID Status Reason Start Date Expiration Date Visits Requested Visits Authorized [id number] Authorization Not Required 01/01/2024 1 1 Encounter Details Date Type Department Care Team (Latest Contact Info) Description 01/07/2024 10:21 EDT - 01/07/2024 23:59 EDT [facility] Rad[facility] Xray Outpatient - [address] [address] Left foot pain Discharge Disposition: Home or Self Care [...] (Late st Contact Info) Description 05/14/2024 15:10 [facility] Radiology CT - [address] [address] documented as of this encounter Procedures Procedure Name Priority Date/Time Associated Diagnosis Comments XR FOOT LEFT 3 OR MORE VIEWS Routine 01/07/2024 10:40 EDT Left foot pain documented in this encounter Results * XR FOOT LEFT 3 OR MORE VIEWS (01/07/2024 10:40 EDT) Anatomical Region Laterality Modality Lower Extremities Left Computed Radio graphy 01/07/2024 12:5 8 EDT Impressions 01/07/2024 12:58 EDT FINDINGS / IMPRESSION: 3 weightbearing views of the left foot show no acute fracture or malalignment. There are surgical changes from remote hallux valgus correction and bunionectomy with a pin in the first metatarsal head. There is moderate narrowing of the first MTP joint space. [id number] Narrative 01/07/2024 12:58 EDT EXAM/TECHNIQUE: XR FOOT LEFT 3 OR MORE VIEWS ??01/07/2024 10:29 AM HISTORY: ?? Left foot pain, nonresponsive to spinal cord stimulation. COMPARISON: None. Resulting Agency Comment [id number] Procedure Note Lexx Lopez, DO - 01/07/2024 EXAM/TECHNIQUE: XR FOOT LEFT 3 OR MORE VIEWS 01/07/2024 10:29 AM HISTORY: Left foot pain, nonresponsive to spinal cord stimulation. COMPARISON: None. IMPRESSION FINDINGS / IMPRESSION: 3 weightbearing views of the left foot show no acute fracture ormalalignment. There are surgical changes from remote hallux valguscorrection and bunionectomy with a pin in the first metatarsal head. Thereis moderate narrowing of the first MTP joint space. [id number] Nikolas Velásquez MD IMG DIAGNOSTIC IMAGI NG ORDERABLES documented in this encounter Visit Diagnoses Diagnosis Left foot pain Pain in limb documented in this encounter Care Teams Student Ministry Pastor Relationship Specialty Start Date End Date Alina Santacruz MD [address] [place] [address] [phone] PCP - General 08/17/21 documented as of this encounter
--- OUTSIDE RECORDS SUMMARY | 2024-01-28 18:24 | XMS_ITS | Referral Summary ---
Author Organization [facility] Address [address] [place] [address] Care Team Providers Care Informatics Analyst Name Role Phone Alina Montenegro MD Primary Care Provider [phone] Encounters Date Type Department Care Team Description 01/28/2024 Telephone [facility] Endocrinology - [address] [phone] Maria Alejandra Jung MD Coordination Of Care 01/19/2024 7:58 EDT - 01/19/2024 23:59 EDT [facility] Breast Imaging Mammography - [address] [phone] Encounter for screening mammogram for malignant neoplasm of breast Discharge Disposition: Home or Self Care 01/10/2024 Telephone [facility] Urgent Care - [address] [id number] Mitzy Noble MD Results 01/09/2024 Travel 01/09/2024 10:17 EDT - 01/09/2024 11:58 EDT Hospital Encounter [facility] Urgent Care - [address] [id number] Acute vaginitis (Primary Dx); Dysuria Discharge Disposition: Home or Self Care 01/07/2024 10:21 EDT - 01/07/2024 23:59 EDT Hospital [facility]counter [facility] Radiology Xray Outpatient - [address] [phone] Left foot pain Discharge Disposition: Home or Self Care 01/07/2024 13:30 EDT Office Visit [facility] Hematology & Oncology [address] [address] Maria Alejandra Jung MD MGUS (monoclonal gammopathy of unknown significance) (Primary Dx) 01/07/2024 12:45 EDT Phlebotomy Only [facility] Hematology & Oncology [address] [address] Blood Doctor, [facility] Hem Onc Unknown Code (Primary Dx); Other specified disorders of bone density and structure, unspecified site; Essential (primary) hypertension; MGUS (monoclonal gammopathy of unknown significance) 01/03/2024 Orders Only [facility] Hematology & Oncology [address] [address] Yolande Brewer RN MGUS (monoclonal gammopathy of unknown significance) (Primary Dx) 12/31/2023 Transcribe Orders [facility] CLINICAL [facility] Alina Olivares MD Other specified disorders of bone density and structure, unspecified site (Primary Dx); Essential (primary) hypertension 12/11/2023 14:34 EDT - 12/11/2023 15:34 EDT Hospital Encounter [facility] Urgent Care - [place] [address] [place] [address] Jorge Layton MD Dysuria (Primary Dx) Discharge Disposition: Home or Self Care from Last 3 Months Allergies Active Allergy Reactions Criticality Noted Date Comments Adhesive Tape-Silicones 07/12/2023 Medications Medication Sig Dispensed Refills Start Date End Date Status atenoloL (TENORMIN) 100 mg tablet Take 1 Tablet by mouth daily. 06/17/2021 Active morphine (MS CONTIN) 30 mg CR tablet Take 1 Tablet by mouth every 12 hours. Active tiotropium-oloda teroL (STIOLTO RESPIMAT) 2.5-2.5 mcg/actuation inhaler Inhale as directed daily. Active LORazepam (ATIVAN) 1 mg tablet Take 1 Tablet by mouth every 4 hours as needed. Active atorvastatin (LIPITOR) 10 mg tablet Take 1 Tablet by mouth daily. Active pregabalin (LYRICA) 150 mg capsule Take 1 Capsule by mouth 2 times daily. Active DULoxetine (CYMBALTA) 60 mg capsule Take 1 Capsule by mouth daily. Active naloxone (NARCAN) 4 mg/actuation nasal spray 0.1 mL by nasal route as needed for Opioid Reversal. Active Cholecalciferol, Vitamin D3, 50 mcg capsule Take 1 Capsule by mouth daily. Active cyanocobalamin (VITAMIN B-12) 1,000 mcg tablet Take 1 Tablet by mouth daily. Active folic acid (FOLVITE) 1 mg tablet Take 1 Tablet by mouth daily. Active nicotine (NICODERM CQ) 14 mg/24 hr patch Apply 1 patch every day by transdermal route. 12/31/2023 Active amitriptyline (ELAVIL) 10 mg tablet Take 1 Tablet by mouth at bedtime. Active amLODIPine (NORVASC) 2.5 mg tablet Take 1 Tablet by mouth daily. Active fluconazole (DIFLUCAN) 150 mg tablet Take 1 Tablet by mouth Once for 1 dose. 1 Tablet 01/10/2024 Active amitriptyline (ELAVIL) 25 mg tablet Take 25 mg by mouth daily. 4 Discontinued albuterol 90 mcg/actuation inhaler Inhale 180 mcg as directed every 4 hours. 4 Discontinued promethazine (PHENERGAN) 25 mg tablet Take 25 mg by mouth every 4 hours. 4 Discontinued clobetasoL (TEMOVATE) 0.05 % cream Apply topically 2 times daily. 4 Discontinued fosinopriL-hydro chlorothiazide (MONOPRIL-HCT) 10-12.5 mg per tablet Take 1 Tablet by mouth daily. 4 Discontinued candesartan (ATACAND) 4 mg tablet Take 4 mg by mouth daily. 4 Discontinued sodium,potassium ,mag sulfates (SUPREP BOWEL PREP) kit Please follow instructions provided by GI office. 1 Kit 11/08/2022 4 Discontinued metroNIDAZOLE (FLAGYL) 500 mg tablet Take 1 Tablet by mouth 2 times daily for 7 days. 14 Tablet 01/09/2024 4 Active Problems Patient Care Coordination No te Formatting of this note migh t be different from the original. Paula Robles 11/06/2022 10:37 PATIENT CAME TO [facility] TO SCHEDULE A COLOSCOPY APPOINTMENT WITH [facility], DID NOT SEE ANY APPOINTMENTS OR INFORMATION IN NOTES AND ENCOUNTERS ABOUT AN COLOSCOPY APPOINTMENT, SPOKE TO TIFFANY/DR MONTENEGRO OFFICE ABOUT STATUS OF REFERRAL TO [facility] FOR COLOSCOPY AND SENT FAX TO [phone] ON 11.01.2022 [facility], SPOKE TO GASTROENTEROLOGY CASE MGR STATED NO REFERRAL RECEIVED, SPOKE TO TITI/GASTROENTEROLOGY STATED FAX NUMBERS ARE [phone] OR [phone], INFORMED TIFFANY/DR MONTENEGRO TO REFAX REFERRAL TO [...] AND GUIDANCE UNTIL APPOINTMENT DAY 2021 - [place] Medicaid A[place] per web/trace# [phone] Brayan Mercedes 08/17/2021 10:37 Patient has declined to give permission for [facility] to verbally discuss any information with anyone other than the patient. Permission remains in effect until the patient elects to revoke it. Problem Noted Date Diagnosed Date Left leg pain 05/30/2023 Social History Tobacco Use Types Packs/Day Years Used Date Smoking Tobacco: Every Day Cigarettes 0.3 21 Smokeless Tobacco: Never Tobacco Cessation:Ready to Q uit: Not Asked; Counseling Given: Not Answered Comments:Smokes about 1-2 cigarettes using patch Alcohol Use Standard Drinks/Week Comments [...] Body Mass Index 23.52 01/09/2024 1010 EDT Functional Status Functional Status Response Date of [...] (Late st Contact Info) Description 05/14/2024 15:10 [facility] Radiology CT - [address] [address] Medical Devices Implanted Type Area Machine Tack Puller Device Identifier Shelf Expiration Date Model / Serial / Lot Screw In Big Toe (Unknown Side)-Mr Safe Procedures Procedure Name Priority Date/Time Associated Diagnosis Comments MA BREAST SCREENING EDWIN BILATERAL Routine 01/19/2024 8:28 EDT Encounter for screening mammogram for malignant neoplasm of breast VAGINAL CTGC AND VAGINITIS/VAGINOSIS MOLECULAR DETECTION Routine 01/09/2024 11:19 EDT Acute vaginitis UA SEDIMENT + REFLEX TO CULTURE STAT 01/09/2024 10:27 EDT Dysuria POCT CSN BARCODE URINE DIPSTICK STAT 01/09/2024 10:26 EDT Dysuria POCT URINE DIPSTICK, CLINITEK STAT 01/09/2024 10:25 EDT Dysuria POCT URINE CLINITEK (DIPSTICK) - DOES NOT REFLEX STAT 01/09/2024 10:25 EDT Dysuria SPEP, INCLUDES QUANTITATION OF MONOCLONAL SPIKE PERFORMABLE Routine 01/07/2024 12:48 EDT MGUS (monoclonal gammopathy of unknown significance) PROTEIN, TOTAL Routine 01/07/2024 12:48 EDT MGUS (monoclonal gammopathy of unknown significance) SERUM FREE LIGHT CHAINS STAT 01/07/2024 12:48 EDT MGUS (monoclonal gammopathy of unknown significance) SPEP, INCLUDES QUANTITATION OF MONOCLONAL SPIKE Routine 01/07/2024 12:48 EDT MGUS (monoclonal gammopathy of unknown significance) COMPREHENSIVE METABOLIC PANEL (CMP) STAT 01/07/2024 12:48 EDT MGUS (monoclonal gammopathy of unknown significance) COMPLETE BLOOD COUNT AND DIFFERENTIAL STAT 01/07/2024 12:48 EDT MGUS (monoclonal gammopathy of unknown significance) VITAMIN D (25,OH) Routine 01/07/2024 12: 48 EDT Other specified disorders of bone density and structure, unspecified site Essential (primary) hypertension XR FOOT LEFT 3 OR MORE VIEWS Routine 01/07/2024 10:40 EDT Left foot pain UA SEDIMENT + REFLEX TO CULTURE STAT 12/11/2023 14:43 EDT Dysuria POCT CSN BARCODE URINE DIPSTICK STAT 12/11/2023 14:42 EDT Dysuria POCT URINE DIPSTICK, CLINITEK STAT 12/11/2023 14:39 EDT Dysuria POCT URINE CLINITEK (DIPSTICK) - DOES NOT REFLEX STAT 12/11/2023 14:[address] CHEST LOW DOSE LUNG SCREENING Routine 12/15/2022 11:53 EDT Personal history of nicotine dependence HEPATITIS C AB W REFLEX TO HCV RNA BY PCR Routine 10/07/2021 15:37 EDT from Last 3 Months or Most Recently Relevant to Health Maintenance Results * MA BREAST SCREENING EDWIN BILATERAL (01/19/2024 8:28 EDT) Anatomical Region Laterality Modality Breast Bilateral Mammography 01/19/2024 19:1 4 EDT Impressions 01/19/2024 19:14 EDT Negative, no evidence of malignancy. RECOMMENDATION: Routine screening mammography is recommended. OVERALL ASSESSMENT: BI-RADS 1: Negative These results will be communicated to your patient via a lay letter from Radiology. If any additional imaging is needed we will contact your patient directly. [address], [place] [id number] [place] [address].- [facility] [phone] [id number] Narrative 01/19/2024 19:14 EDT MA BREAST SCREENING EDWIN BILATERAL ??01/19/2024 8:06 AM History: ROUTINE Comparison: ??Comparison has been made to previous images . ? Technique: Routine 3D tomosynthesis with synthesized 2D views with CAD Breast Composition: There are scattered areas of fibroglandular density. Bilateral Breast Findings: ??No significant masses, calcifications or other abnormalities are seen. Resulting Agency Comment [id number] Procedure Note Ama Mcdowell MD MPH - 01/19/2024 MA BREAST SCREENING EDWIN BILATERAL 01/19/2024 8:06 AM History: ROUTINE Comparison: Comparison has been made to previous images . Technique: Routine 3D tomosynthesis with synthesized 2D views with CAD Breast Composition: There are scattered areas of fibroglandular density. Bilateral Breast Findings: No significant masses, calcifications or otherabnormalities are seen. IMPRESSION Negative, no evidence of malignancy. RECOMMENDATION: Routine screening mammography is recommended. OVERALL ASSESSMENT: BI-RADS 1: Negative These results will be communicated to your patient via a lay letter fromRadiology. If any additional imaging is needed we will contact yourpatient directly. [address] [place] [address] [facility].- [facility] [phone] [id number] Alina Montenegro MD IMG MAMMOGRAPHY G[facility] * (ABNORMAL) VAGINAL CTGC AND VAGINITIS/VAGINOSIS MOLECULAR DETECTION (01/09/2024 11:19 EDT) Dianne glabrata Positive(A) Negative 01/10/2024 15:14 EDT [facility] Trichomonas Vaginalis Negative Negative 01/10/2024 15:14 EDT [facility] BV (Bacterial vaginosis) Negative Negative 01/10/2024 15:14 EDT [facility] Neisseria gonorrhoeae Result Negative Negative 01/10/2024 15:14 EDT [facility] Chlamydia trachomatis Result Negative Negative 01/10/2024 15:14 T [facility] Dianne Species Positive(A) Negative 01/10/20 15:14 [facility] Swab VAGINAL STRUCTURE / Unknown Swab / Unknown 01/09/2024 11:19 EDT 01/09/2024 11:19 EDT Gabby Ocampo PA-C MICROBIOLOGY - GENERAL ORDERABLES [facility] [address] [place] [id number] * UA SEDIMENT + REFLEX TO CULTURE (01/09/2024 10:27 EDT) Only the most recent of2 resultswithin the time period is included. Urine RBC Count, Auto 0 - 2 0 - 2 Cells/HPF 01/09/2024 11:51 [facility] Urine WBC Count, Auto 0 - 3 0 - 3 Cells/HPF 01/09/2024 11:51 [facility] Urine Squamous Count, Auto None Seen None Seen Cells/HPF 01/09/2024 11:51 [facility] Urine Hyaline Cast Count, Auto <=10 <=10 Casts/LPF 01/09/2024 11:51 [facility] Urine Bacteria Count, Auto None Seen None Seen Bacteria/H PF 01/09/2024 11:51 [facility] Urine URINE SPECIMEN OBTAINED BY CLEAN CATCH PROCEDURE / Unknown Urine Collect / Unknown 01/09/2024 10:27 EDT 01/09/2024 10:27 EDT Narrative [facility] - 01/09/2024 11:51 EDT NOTE: Reflex to Urine Culture test is not indicated based on Urine Sediment Analysis results. Urine Sediment Analysis results are unreliable on urines that are unrefrigerated for >2 hrs or refrigerated >8 hrs. Gabby Ocampo PA-C URINALYSIS ORD ERABLES Performing Organization Address City/[facility]/ZIP Co de Phone Number [facility] [address] [place] [address] * POCT CSN BARCODE URINE DIPSTICK (01/09/2024 10:26 EDT) Only the most recent of2 resultswithin the time period is included. Urine URINE SPECIMEN OBTAINED BY CLEAN CATCH PROCEDURE / Unknown Urine Collect / Unknown 01/09/2024 10:26 EDT 01/09/2024 10:26 EDT Mitzy Noble MD LAB INFO SERVICE AND SUPPORT & PHONE RESULT Performing Organization Address [facility] Co de Phone Number [facility] [address] [place] [address] * (ABNORMAL) POCT URINE DIPSTICK, CLINITEK (01/09/2024 10:25 EDT) Only the most recent of2 resultswithin the time period is included. Color, UA Yellow Yellow 01/09/2024 10:27 EDT [facility] Clarity, UA Clear Clear 01/09/2024 10:27 EDT [facility] Glucose, UA Negative Negative mg/dL 01/09/2024 10:27 EDT [facility] Bilirubin, UA Negative Negative 01/09/2024 10:27 EDT [facility] Ketones, UA Negative Negative 01/09/2024 10:27 EDT [facility] Specific [place], Urine 1.010 1.001 - 1.030 01/09/2024 10:27 EDT [facility] Blood, UA Trace(A) Negative 01/09/2024 10:27 T [facility] pH, UA 6.0 <8.5 01/09/2024 10:27 T [facility] Protein, UA Negative Negative mg/dL 01/09/2024 10:27 [facility] Urobilinogen, UA 0.2 0.2 - 1.0 mg/dL 01/09/2024 10:27 [facility] Nitrite, UA Negative Negative 01/09/2024 10:27 [facility] Leuk Esterase Negative Negative 01/09/2024 10:27 [facility] HN LAB COMMENT (CLINITEK, UR) Test performed at Urgent Care 01/09/2024 10:27 [facility] Urine URINE SPECIMEN OBTAINED BY CLEAN CATCH PROCEDURE / Unknown 01/09/2024 10:25 EDT 01/09/2024 10:27 EDT Mitzy Noble MD POINT OF CARE TEST O RDERABLES [facility] [address] [place] [address] * (ABNORMAL) SPEP, INCLUDES QUANTITATION OF MONOCLONAL SPIKE PERFORMABLE (01/07/2024 12:48 EDT) Albumin % 55.6(L) 55.8 - 66.1 % 01/08/2024 13:23 [facility] Albumin g/dL 4.4 3.6 - 5.2 g/dL 01/08/2024 13:23 [facility] Alpha-1 % 4.7 2.9 - 4.9 % 01/08/2024 13:23 [facility] Alpha-1 g/dL 0.40 0.15 - 0.40 g/dL 01/08/2024 13:23 [facility] Alpha-2 % 14.2(H) 7.1 - 11.8 % 01/08/2024 13:23 [facility] Alpha-2 g/dL 1.10(H) 0.50 - 1.00 g/dL 01/08/2024 13:23 [facility] Beta % 9.3 8.4 - 13.1 % 01/08/2024 13:23 [facility] Beta g/dL 0.70 0.60 - 1.20 g/dL 01/08/2024 13:23 [facility] Gamma % 16.2 11.1 - 18.8 % 01/08/2024 13:23 [facility] Gamma g/dL 1.30 0.60 - 1.60 g/dL 01/08/2024 13:23 [facility] SPEP Comment No apparent monoclonal protein seen on serum electrophoresis 01/08/2024 13:23 [facility] Comment:See scanned/suppleme ntary report. Total Protein 7.9 6.3 - 8.2 g/dL 01/08/2024 13:23 [facility] Blood VENOUS BLOOD / Unknown Venipuncture / Unknown 01/07/2024 12:48 EDT 01/07/2024 12:51 EDT Maria Alejandra Jung MD CHEMISTRY & BLOOD GA S ORDERABLES [facility] [address] [place] [address] * (ABNORMAL) SERUM FREE LIGHT CHAINS (01/07/2024 12:48 EDT) [place] Free Lt Chain 3.60(H) 0.33 - 1.94 mg/dL 01/07/2024 14:31 [facility] Lambda Free Lt Chain 1.84 0.57 - 2.63 mg/dL 01/07/2024 14:31 [facility] [place]/Lambda Ratio 1.96(H) 0.26 - 1.65 01/07/2024 14:31 [facility] Blood VENOUS BLOOD / Unknown Venipuncture / Unknown 01/07/2024 12:48 EDT 01/07/2024 12:51 EDT Maria Alejandra Jung MD CHEMISTRY & BLOOD GA S ORDERABLES Performing Organization Address City/[facility]/ZIP Co de Phone Number [facility] [address] [place] [address] * VITAMIN D (25,OH) (01/07/2024 12:48 EDT) 25OH Vitamin D Tot 32 30 - 100 ng/mL 01/07/2024 16:20 EDT [facility] Comment: Vitamin D 25,OH Interpretive Ranges: Deficiency: ??<10.0 ng/mL Insufficiency: ??10.0 - 30.0 ng/mL Sufficiency: ??30.0 - 100.0 ng/mL Toxicity: ??>100.0 ng/mL Blood VENOUS BLOOD / Unknown Venipuncture / Unknown 01/07/2024 12:48 EDT 01/07/2024 12:51 EDT Alina Montenegro MD CHEMISTRY & BLOOD GA S ORDERABLES Performing Organization Address [facility]/[place] de Phone Number [facility] [address] [place] [address] * (ABNORMAL) COMPLETE BLOOD COUNT AND DIFFERENTIAL (01/07/2024 12:48 EDT) WBC 7.79 4.00 - 12.40 K/cmm 01/07/2024 13:03 EDT [facility] RBC 3.92 3.86 - 5.04 M/cmm 01/07/2024 13:03 EDT [facility] Hemoglobin 12.6 11.6 - 15.2 g/dL 01/07/2024 13:03 EDT [facility] HCT 34.6(L) 34.9 - 44.4 % 01/07/2024 13:03 [facility] MCV 88 81 - 98 fL 01/07/2024 13:03 [facility] MCH 32.1 26.7 - 33.3 pg 01/07/2024 13:03 [facility] MCHC 36.4(H) 32.1 - 35.9 g/dL 01/07/2024 13:03 [facility] RDW-CV 13.1 <14.7 % 01/07/2024 13:03 [facility] RDW-SD 42.3 <50.4 fl 01/07/2024 13:03 [facility] PLT 295 141 - 377 K/cmm 01/07/2024 13:03 [facility] MPV 9.7 9.5 - 12.7 fL 01/07/2024 13:03 [facility] % Neutrophils 51.8 % 01/07/2024 13:03 [facility] % Lymphocytes 35.9 % 01/07/2024 13:03 [facility] % Monocytes 10.5 % 01/07/2024 13:03 [facility] % Eosinophils 1.0 % 01/07/2024 13:03 [facility] % Basophils 0.5 % 01/07/2024 13:03 [facility] % Immature Grans 0.3 % 01/07/20 24 13:03 [facility] Absolute Neutrophils 4.03 2.20 - 8.85 K/cmm 01/07/2024 13:03 [facility] Absolute Lymphocytes 2.80 1.09 - 3.30 K/cmm 01/07/2024 13:03 [facility] Absolute Monocytes 0.82(H) 0.10 - 0.80 K/cmm 01/07/2024 13:03 [facility] Absolute Eosinophils 0.08 0.03 - 0.61 K/cmm 01/07/2024 13:03 [facility] ABS Basophils 0.04 0.01 - 0.11 K/cmm 01/07/2024 13:03 EDT [facility] Absolute Immature Grans 0.02 0.00 - 0.06 K/cmm 01/07/2024 13:03 EDT [facility] Type of Differential: Auto 01/07/2024 13:03 T [facility] Blood VENOUS BLOOD / Unknown Venipuncture / Unknown 01/07/2024 12:48 EDT 01/07/2024 12:51 EDT Maria Alejandra Jung MD PACKAGES & DNA PROBE ORDERABLES [facility] [address], [place] [address] * PROTEIN, TOTAL (01/07/2024 12:48 EDT) Blood VENOUS BLOOD / Unknown Venipuncture / Unknown 01/07/2024 12:48 EDT 01/07/2024 12:51 EDT Maria Alejandra Jung MD CHEMISTRY & BLOOD GA S ORDERABLES [facility] [address] [place] [address] * (ABNORMAL) COMPREHENSIVE METABOLIC PANEL (CMP) (01/07/2024 12:48 EDT) Sodium 137 136 - 145 mmol/L 01/07/2024 14:11 [facility] Potassium 4.6 3.5 - 5.0 mmol/L 01/07/2024 14:11 [facility] Chloride 98 96 - 110 mmol/L 01/07/2024 14:11 [facility] CO2 Total 26 22 - 32 mmol/L 01/07/2024 14:11 [facility] Glucose 82 70 - 99 mg/dl 01/07/2024 14:11 [facility] BUN 11 10 - 26 mg/dL 01/07/2024 14:11 [facility] Creatinine 0.73 0.52 - 1.04 mg/dL 01/07/2024 14:11 [facility] eGFR 91 >60 mL/min/1.7 3m2 01/07/2024 14:11 [facility] Total Protein 7.9 6.3 - 8.2 g/dL 01/07/2024 14:11 [facility] Albumin 4.6 3.4 - 4.9 g/dL 01/07/2024 14:11 [facility] Alkaline Phosphatase 83 38 - 126 U/L 01/07/2024 14:11 [facility] AST 45 15 - 46 U/L 01/07/2024 14:11 [facility] ALT 38(H) <35 U/L 01/07/2024 14:11 [facility] Bilirubin, Total 0.6 <1.4 mg/dL 01/07/20 14:11 [facility] Calcium 9.5 8.5 - 10.5 mg/dL 01/07/2024 14:11 [facility] Albumin/Globulin Ratio 1.4 1.0 - 2.5 01/07/2024 14:11 [facility] Anion Gap 13 5 - 14 mmol/L 01/07/2024 14:11 [facility] Blood VENOUS BLOOD / Unknown Venipuncture / Unknown 01/07/2024 12:48 EDT 01/07/2024 12:51 EDT Maria Alejandra Jung MD CHEMISTRY & BLOOD GA S ORDERABLES [facility] [address] [place] [address] * XR FOOT LEFT 3 OR MORE [...] narrowing of the first MTP joint space. [id number] Narrative 01/07/2024 12:58 EDT EXAM/TECHNIQUE: XR FOOT LEFT 3 OR MORE VIEWS ??01/07/2024 10:29 AM HISTORY: ?? Left foot pain, nonresponsive to spinal cord stimulation. COMPARISON: None. Resulting Agency Comment [id number] Procedure Note Lexx Lopez, DO - 01/07/2024 [...] narrowing of the first MTP joint space. [id number] Nikolas Velásquez MD IMG DIAGNOSTIC IMAGI NG ORDERABLES * CT CHEST LOW DOSE LUNG SCREENING [...] Screening Reporting and Data System (ACR LungRADS [id number]) as below: Category 0: Incomplete (part or [...] above interpretation and agree with the findings. [id number] Narrative 12/15/2022 15:[address] CHEST LOW [...] Lung Screening Reporting and Data System (ACRLungRADS [id number]) as below: Category 0: Incomplete (part or [...] the above interpretation andagree with the findings. [id number] Alina Montenegro MD IM CT ORDERABLES * (ABNORMAL) HEPATITIS C AB W REFLEX TO HCV RNA BY PCR (10/07/2021 15:37 EDT) Hep C Antibody Reactive(A ) Negative 10/10/2021 12:36 EDT [facility] Comment: Supplemental testing for HCV RNA is ordered to rule out active HCV infection. Blood VENOUS BLOOD / Unknown 10/07/2021 15:37 EDT 10/08/2021 21:53 EDT Provider Outr Resulting Lab CHEMISTRY & BLOOD GAS ORDERABLES [facility] [address] [place] [address] from Last 3 Months or Most Recently Relevant to Health Maintenance Care Teams Informatics Analyst Relationship Specialty Start Date End Date Alina Montenegro MD [address] [phone] PCP - General 08/17/21
--- OUTSIDE RECORDS SUMMARY | 2024-01-28 18:24 | XMS_ITS | Encounter Summary ---
Author Organization [facility] Address [address] [place] [address] Care Team Providers Care Car Repair Supervisor Name Role Phone Alina Santacruz MD Primary Care Provider Reason for Visit * Reason Comments Follow-up Encounter Details Date Type Department Care Team ([facility] Contact Info) Description 01/07/2024 13:30 EDT Office Visit [facility] Hematology & Oncology - [address] [address] Maria Alejandra Jung MD [address] [facility], Level 2 [place] [address] MGUS (monoclonal gammopathy of unknown [...] Sign Reading Time Taken Comments Blood Pressure 134/64 01/07/2024 1250 EDT Pulse 62 01/07/2024 1250 EDT Temperature 36.3 ??C (97.3 ??F) 01/07/2024 1250 EDT Respiratory Rate 16 01/07/2024 1250 EDT Oxygen Saturation 99% 01/07/2024 1250 EDT Inhaled Oxygen Concentration - - Weight 61.1 kg (134 lb 9.6 oz) 01/07/2024 1250 E DT Height - - Body Mass Index 23.1 06/11/2023 1411 EST documented in this encounter [...] Notes * Maria Alejandra Jung MD - 01/07/2024 1330 EDT HEMATOLOGY VISIT NOTE Assessment & Plan This is a case of a 68-year-old who is referred today for evaluation of mildly abnormal free light chain ratio that was checked in the setting of neuropathy. 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 Her neuropathy symptoms are already better anyway after the stimulator was placed. Plan: Follow up on light chains from today History of present illness Since last visit, she had a stimulator placed in her back that seems to be helping significantly with her leg pain but not as much with the foot burning. She feels overall better. She is trying to quit smoking and feeling hopeful about Patient Active Problem List Diagnosis Left leg [...] Smokes about 1-2 cigarettes using patch Substance and Sexual Activity Alcohol use: Not [...] 2.5-2.5 mcg/actuation inhaler Inhale as directed daily. Vitals: 01/07/24 1250 BP: 134/64 Pulse: 62 Resp: 16 Temp: 36.3 ??C (97.3 ??F) TempSrc: Skin SpO2: 99% Weight: 61.1 kg (134 lb 9.6 oz) Wt Readings from Last 3 Encounters: 01/07/24 61.1 kg (134 lb 9.6 oz) 06/11/23 59 kg (130 lb) 11/15/22 59 kg (130 lb) Physical Exam Constitutional: She is oriented to person, place, and time. She appears well-developed. Pulmonary/Chest: Effort normal. Musculoskeletal: General: No edema. Normal range of motion. Neurological: She is alert and oriented to person, place, and time. Skin: Skin is warm. Lab Results Component Value Date WBC 7.79 01/07/2024 HGB 12.6 01/07/2024 HCT 34.6 (L) 01/07/2024 MCV 88 01/07/2024 PLT 295 01/07/2024 NEUTROABS 4.03 01/07/2024 CALCIUM 9.1 07/12/2023 CO2 27 07/12/2023 AST [...] monoclonal protein seen on serum electrophoresis Imaging XR FOOT LEFT 3 OR MORE VIEWS Result Date: 01/07/2024 FINDINGS / IMPRESSION: 3 weightbearing views of the left foot show no acute fracture or malalignment. There are surgical changes from remote hallux valgus correction and bunionectomy with a pin in the first metatarsal head. There is moderate narrowing of the first MTP joint space. [id number] I spent a total of 30 minutes on the date of this encounter meeting with the patient and reviewing documentation/coordinating care as described in the above note. No procedures were performed at the time of the visit. Maria Alejandra Jung MD documented in this encounter Plan of Treatment Upcoming Encounters Date Type Department Care Team (Late st Contact Info) Description 05/14/2024 15:10 [facility] Radiology CT - [address] [address] documented as of this encounter Visit Diagnoses Diagnosis MGUS (monoclonal gammopathy of unknown significance)- Primary Monoclonal paraproteinemia documented in this encounter Discontinued Medications Medication Sig Discontinue Reason Start Date End Da te amitriptyline (ELAVIL) 25 mg tablet Take 25 mg by mouth daily. 01/07/2024 albuterol 90 mcg/actuation inhaler Inhale 180 mcg as directed every 4 hours. 01/07/2024 promethazine (PHENERGAN) 25 mg tablet Take 25 mg by mouth every 4 hours. 01/07/2024 clobetasoL (TEMOVATE) 0.05 % cream Apply topically 2 times daily. 01/07/2024 fosinopriL-hydrochlor othiazide (MONOPRIL-HCT) 10-12.5 mg per tablet Take 1 Tablet by mouth daily. 01/07/2024 candesartan (ATACAND) 4 mg tablet Take 4 mg by mouth daily. 01/07/2024 sodium,potassium,mag sulfates (SUPREP BOWEL PREP) kit Please follow instructions provided by GI office. 11/08/2022 01/07/2024 documented as of this encounter Historical Medications * This list may reflect changes made after this encounter. Medication Sig Dispensed Refills Start Date End Date amLODIPine (NORVASC) 2.5 mg tablet Take 1 Tablet by mouth daily. amitriptyline (ELAVIL) 10 mg tablet Take 1 Tablet by mouth at bedtime. nicotine (NICODERM CQ) 14 mg/24 hr patch Apply 1 patch every day by transdermal route. 12/31/2023 added in this encounter Care Teams Car Repair Supervisor Relationship Specialty Start Date End Date Alina Santacruz MD [address] [place] [phone] PCP - General 08/17/21 documented as of this encounter
--- OUTSIDE RECORDS SUMMARY | 2024-01-28 18:24 | XMS_ITS | Encounter Summary ---
Author Organization [facility] Address [address] [place] [id number] Care Team Providers Care Anatomy Professor Name Role Phone Alina Santacruz MD Primary Care Provider [phone] Encounter Details Date Type Department Care Team (Latest Contact Info) Description 01/09/2024 Travel Social History Tobacco Use Types Packs/Day [...] (Late st Contact Info) Description 05/14/2024 15:10 [facility] Radiology CT - Main [place] [address] [place], [place] [address] documented as of this encounter Visit Diagnoses Not on filedocumented in this encounter Care Teams Anatomy Professor Relationship Specialty Start Date End Date Alina Santacruz MD [address] [place] [phone] PCP - General 08/17/21 documented as of this encounter
--- OUTSIDE RECORDS SUMMARY | 2024-01-28 18:24 | XMS_ITS | Encounter Summary ---
Author Organization [facility] Address [address] [place] [address] Care Team Providers Care Press Tender Name Role Phone Alina Santacruz MD Primary Care Provider [phone] Reason for Visit * Reason Onset Date Comments Results 01/10/2024 Encounter Details Date Type Department Care Team ([facility] Contact Info) Description 01/10/2024 Telephone [facility] - [address] [id number] Mitzy Noble MD [address] [place] [phone] Results Social History Tobacco Use Types Packs/Day Years [...] Yes 07/12/2023 documented as of this encounter Ordered Prescriptions Prescription Sig Dispensed Refills Start Date End Da te fluconazole (DIFLUCAN) 150 mg tablet Take 1 Tablet by mouth Once for 1 dose. 1 Tablet 01/10/2024 documented in this encounter Miscellaneous Notes * Telephone Encounter - Alex Paula RN - 01/10/2024 1629 EDT Reviewed w/pt. All questions answered * Telephone Encounter - Mitzy Noble MD - 01/10/2024 1609 EDT Please let patient know her swab showed yeast, not BV. Therefore she can stop the metronidazole and start the diflucan I have sent. It is a single dose. documented in this encounter Plan of Treatment Upcoming Encounters Date Type Department Care Team (Late st Contact Info) Description 05/14/2024 15:10 [facility] Radiology CT - [address] [id number] documented as of this encounter Visit Diagnoses Not on filedocumented in this encounter Care Teams Press Tender Relationship Specialty Start Date End Date Alina Santacruz MD [address] [place] [phone] PCP - General 08/17/21 documented as of this encounter
--- OUTSIDE RECORDS SUMMARY | 2024-01-28 18:24 | XMS_ITS | Encounter Summary ---
Author Organization [facility] Address [address] [place] [address] Care Team Providers Care Boat Driver Name Role Phone Alina Santacruz MD Primary Care Provider [phone] Encounter Details Date Type Department Care Team (Latest Contact Info) Description 01/07/2024 12:45 EDT Phlebotomy Only [facility] Hematology & Oncology - [address] [place] [address] [place] [address] Blood Doctor, [facility] Hem Onc Unknown Code (Primary Dx); Other specified disorders of bone density and structure, unspecified site; Essential (primary) hypertension; MGUS (monoclonal gammopathy of unknown significance) Social History Tobacco Use Types Packs/Day Years [...] as of this encounter Progress Notes * Su Woodard MA - 01/07/2024 1245 EDT Venipuncture performed for Gergi Per orders of Gergi Number of attempts 1 RAC I was supervised by Neymar who was present and immediately available in the office suite. SU WOODARD MA 01/07/2024 12:59 documented in this encounter Plan of Treatment Upcoming Encounters Date Type Department Care Team (Late st Contact Info) Description 05/14/2024 15:10 [facility] Radiology CT - [address] [address] documented as of this encounter Procedures Procedure [...] and structure, unspecified site Essential (primary) hypertension COMPLETE BLOOD COUNT AND DIFFERENTIAL STAT 01/07/2024 12:48 EDT MGUS (monoclonal gammopathy of unknown significance) SPEP, INCLUDES QUANTITATION OF MONOCLONAL SPIKE Routine 01/07/2024 12:48 EDT MGUS (monoclonal gammopathy of unknown significance) PROTEIN, TOTAL Routine 01/07/2024 12:48 EDT MGUS (monoclonal gammopathy of unknown significance) COMPREHENSIVE METABOLIC PANEL (CMP) STAT 01/07/2024 12:48 EDT MGUS (monoclonal gammopathy of unknown significance) documented in this encounter Results * (ABNORMAL) SPEP, INCLUDES QUANTITATION OF MONOCLONAL SPIKE PERFORMABLE (01/07/2024 12:48 EDT) Albumin % 55.6(L) 55.8 - 66.1 % 01/08/2024 13:23 [facility] Albumin g/dL 4.4 3.6 - 5.2 g/dL 01/08/2024 13:23 [facility] Alpha-1 % 4.7 2.9 - 4.9 % 01/08/2024 13:23 [facility] Alpha-1 g/dL 0.40 0.15 - 0.40 g/dL 01/08/2024 13:23 [facility] Alpha-2 % 14.2(H) 7.1 - 11.8 % 01/08/2024 13:23 [facility] Alpha-2 g/dL 1.10(H) 0.50 - 1.00 g/dL 01/08/2024 13:23 [facility] Beta % 9.3 8.4 - 13.1 % 01/08/2024 13:23 [facility] Beta g/dL 0.70 0.60 - 1.20 g/dL 01/08/2024 13:23 [facility] Gamma % 16.2 11.1 - 18.8 % 01/08/2024 13:23 [facility] Gamma g/dL 1.30 0.60 - 1.60 g/dL 01/08/2024 13:23 [facility] SPEP Comment No apparent monoclonal protein seen on serum electrophoresis 01/08/2024 13:23 [facility] Comment:See scanned/suppleme ntary report. Total Protein 7.9 6.3 - 8.2 g/dL 01/08/2024 13:23 [facility] Blood VENOUS BLOOD / Unknown Venipuncture / Unknown 01/07/2024 12:48 EDT 01/07/2024 12:51 EDT Maria Alejandra Jung MD CHEMISTRY & BLOOD GA S ORDERABLES Performing Organization Address City/[facility]/ZIP Co de Phone Number [facility] [address] [place] [address] * PROTEIN, TOTAL (01/07/2024 12:48 EDT) Blood VENOUS BLOOD / Unknown Venipuncture / Unknown 01/07/2024 12:48 EDT 01/07/2024 12:51 EDT Maria Alejandra Jung MD CHEMISTRY & BLOOD GA S ORDERABLES Performing Organization Address [facility] Co de Phone Number [facility] [address] [place] [address] * (ABNORMAL) SERUM FREE LIGHT CHAINS (01/07/2024 12:48 EDT) Elliott Free Lt Chain 3.60(H) 0.33 - 1.94 mg/dL 01/07/2024 14:31 EDT [facility] Lambda Free Lt Chain 1.84 0.57 - 2.63 mg/dL 01/07/2024 14:31 EDT [facility] Elliott/Lambda Ratio 1.96(H) 0.26 - 1.65 01/07/2024 14:31 EDT [facility] Blood VENOUS BLOOD / Unknown Venipuncture / Unknown 01/07/2024 12:48 EDT 01/07/2024 12:51 EDT Maria Alejandra Jung MD CHEMISTRY & BLOOD GA S ORDERABLES Performing Organization Address [facility]/ZIP Co de Phone Number [facility] [address] [place] [address] * (ABNORMAL) COMPREHENSIVE METABOLIC PANEL (CMP) (01/07/2024 12:48 EDT) Sodium 137 136 - 145 mmol/L 01/07/2024 14:11 EDT [facility] Potassium 4.6 3.5 - 5.0 mmol/L 01/07/2024 14:11 [facility] Chloride 98 96 - 110 mmol/L 01/07/2024 14:11 [facility] CO2 Total 26 22 - 32 mmol/L 01/07/2024 14:11 [facility] Glucose 82 70 - 99 mg/dl 01/07/2024 14:11 [facility] BUN 11 10 - 26 mg/dL 01/07/2024 14:11 [facility] Creatinine 0.73 0.52 - 1.04 mg/dL 01/07/2024 14:11 [facility] eGFR 91 >60 mL/min/1.7 3m2 01/07/2024 14:11 [facility] Total Protein 7.9 6.3 - 8.2 g/dL 01/07/2024 14:11 [facility] Albumin 4.6 3.4 - 4.9 g/dL 01/07/2024 14:11 [facility] Alkaline Phosphatase 83 38 - 126 U/L 01/07/2024 14:11 [facility] AST 45 15 - 46 U/L 01/07/2024 14:11 [facility] ALT 38(H) <35 U/L 01/07/2024 14:11 [facility] Bilirubin, Total 0.6 <1.4 mg/dL 01/07/20 14:11 [facility] Calcium 9.5 8.5 - 10.5 mg/dL 01/07/2024 14:11 [facility] Albumin/Globulin Ratio 1.4 1.0 - 2.5 01/07/2024 14:11 [facility] Anion Gap 13 5 - 14 mmol/L 01/07/2024 14:11 [facility] Blood VENOUS BLOOD / Unknown Venipuncture / Unknown 01/07/2024 12:48 EDT 01/07/2024 12:51 EDT Maria Alejandra Jung MD CHEMISTRY & BLOOD GA S ORDERABLES [facility] [address] [place] [address] * (ABNORMAL) COMPLETE BLOOD COUNT AND DIFFERENTIAL (01/07/2024 12:48 EDT) WBC 7.79 4.00 - 12.40 K/cmm 01/07/2024 13:03 [facility] RBC 3.92 3.86 - 5.04 M/cmm 01/07/2024 13:03 [facility] Hemoglobin 12.6 11.6 - 15.2 g/dL 01/07/2024 13:03 [facility] HCT 34.6(L) 34.9 - 44.4 % 01/07/2024 13:03 [facility] MCV 88 81 - 98 fL 01/07/2024 13:03 [facility] MCH 32.1 26.7 - 33.3 pg 01/07/2024 13:03 [facility] MCHC 36.4(H) 32.1 - 35.9 g/dL 01/07/2024 13:03 [facility] RDW-CV 13.1 <14.7 % 01/07/2024 13:03 [facility] RDW-SD 42.3 <50.4 fl 01/07/2024 13:03 [facility] PLT 295 141 - 377 K/cmm 01/07/2024 13:03 [facility] MPV 9.7 9.5 - 12.7 fL 01/07/2024 13:03 [facility] % Neutrophils 51.8 % 01/07/2024 13:03 [facility] % Lymphocytes 35.9 % 01/07/2024 13:03 [facility] % Monocytes 10.5 % 01/07/2024 13:03 [facility] % Eosinophils 1.0 % 01/07/2024 13:03 [facility] % Basophils 0.5 % 01/07/2024 13:03 [facility] % Immature Grans 0.3 % 01/07/20 24 13:03 [facility] Absolute Neutrophils 4.03 2.20 - 8.85 K/cmm 01/07/2024 13:03 [facility] Absolute Lymphocytes 2.80 1.09 - 3.30 K/cmm 01/07/2024 13:03 [facility] Absolute Monocytes 0.82(H) 0.10 - 0.80 K/cmm 01/07/2024 13:03 [facility] Absolute Eosinophils 0.08 0.03 - 0.61 K/cmm 01/07/2024 13:03 [facility] ABS Basophils 0.04 0.01 - 0.11 K/cmm 01/07/2024 13:03 [facility] Absolute Immature Grans 0.02 0.00 - 0.06 K/cmm 01/07/2024 13:03 [facility] Type of Differential: Auto 01/07/2024 13:03 [facility] Blood VENOUS BLOOD / Unknown Venipuncture / Unknown 01/07/2024 12:48 EDT 01/07/2024 12:51 EDT Maria Alejandra Jung MD PACKAGES & DNA PROBE ORDERABLES [facility] [address] [place] [address] * VITAMIN D (25,OH) (01/07/2024 12:48 EDT) 25OH Vitamin D Tot 32 30 - 100 ng/mL 01/07/2024 16:20 EDT [facility] Comment: Vitamin D 25,OH Interpretive Ranges: Deficiency: ??<10.0 ng/mL Insufficiency: ??10.0 - 30.0 ng/mL Sufficiency: ??30.0 - 100.0 ng/mL Toxicity: ??>100.0 ng/mL Blood VENOUS BLOOD / Unknown Venipuncture / Unknown 01/07/2024 12:48 EDT 01/07/2024 12:51 EDT Alina Santacruz MD CHEMISTRY & BLOOD GA S ORDERABLES [facility] [address] [place] [address] documented in this encounter Visit Diagnoses Diagnosis Unknown Code- Primary Erroneous [id number] Other specified disorders of bone density and structure, unspecified site Essential (primary) hypertension Unspecified essential hypertension MGUS (monoclonal gammopathy of unknown significance) Monoclonal paraproteinemia documented in this encounter Care Teams Boat Driver Relationship Specialty Start Date End Date Alina Santacruz MD [address] [place] [phone] PCP - General 08/17/21 documented as of this encounter
--- OUTSIDE RECORDS SUMMARY | 2024-01-28 18:24 | XMS_ITS | Encounter Summary ---
Author Organization [facility] Address [address] [place] [address] Care Team Providers Care Bullet Swaging Machine Operator Name Role Phone Alina Santacruz MD Primary Care Provider [phone] Reason for Visit * Reason Onset Date Comments Coordination Of Care 01/28/2024 Encounter Details Date Type Department Care Team (Late st Contact Info) Description 01/28/2024 Telephone [facility] Endocrinology - [address] [address] Maria Alejandra Jung MD 111 [facility] [address] [place] [phone] Coordination Of Care Social History Tobacco Use Types Packs/Day [...] encounter Miscellaneous Notes * Telephone Encounter - Yolande Brewer RN - 01/28/2024 1456 EDT Results faxed. * Telephone Encounter - Elis Spence - 01/28/2024 1447 EDT Card Painter sent Owlr Chat message to RN who will be faxing Light Chain Results from 01/[address] Santacruz at * Telephone Encounter - Elis Spence - 01/28/2024 1442 EDT HemOnc Incoming Call Active Symptoms/Disease Management Call Reason: Silvino from [facility] is calling with patient at clinic. Dr Santacruz from their clinic would like to know if patient had Light Chain testting at their last visit 01/07/24 Next Appointment: Visit date not found Last Office Visit: Visit date not found Last Telehealth Encounter: Visit date not found Send ROUTINE Priority to Hem/Onc Nurse Dc Spence 01/28/2024 14:43 documented in this encounter Plan of Treatment Upcoming Encounters Date Type Department Care Team (Late st Contact Info) Description 05/14/2024 15:10 [facility] Radiology [place] - [address] [address] documented as of this encounter Visit Diagnoses Not on filedocumented in this encounter Care Teams Bullet Swaging Machine Operator Relationship Specialty Start Date End Date Alina Santacruz MD [address] [place] [phone] PCP - General 08/17/21 documented as of this encounter
--- OUTSIDE RECORDS SUMMARY | 2024-01-28 18:24 | XMS_ITS | Clinical Summary ---
Author Organization [facility] Address [address] [place] [address] Care Team Providers Care Talent Assistant Name Role Phone Alina Montenegro MD Primary Care Provider [phone] Allergies Active Allergy Reactions Criticality Noted Date [...] t be different from the original. Paula Travis 11/06/2022 10:37 PATIENT CAME TO [facility] TO SCHEDULE A COLOSCOPY APPOINTMENT WITH [facility], DID NOT SEE ANY APPOINTMENTS OR INFORMATION IN NOTES AND ENCOUNTERS ABOUT AN COLOSCOPY APPOINTMENT, SPOKE TO TIFFANY/DR MONTENEGRO OFFICE ABOUT STATUS OF REFERRAL TO [facility] FOR COLOSCOPY AND SENT FAX TO [phone] ON 11.01.2022 [facility], SPOKE TO GASTROENTEROLOGY MATERIAL CHASER STATED NO REFERRAL RECEIVED, SPOKE TO TITI/GASTROENTERLEONEL STATED FAX NUMBERS ARE [phone] OR [phone], INFORMED TIFFANY/DR MONTENEGRO TO REFAX REFERRAL TO [...] AND GUIDANCE UNTIL APPOINTMENT DAY 2021 - [place] Medicaid ACO per web/trace# [phone] Brayan Mercedes 08/17/2021 10:37 Patient has declined to give permission for [facility] to verbally discuss any information with anyone other than the patient. Permission remains in effect until the patient elects to revoke it. Problem Noted Date Diagnosed Date Left leg pain 05/30/2023 Encounters Date Type Department Care Team Description 01/28/2024 Telephone [facility] Endocrinology - [facility] [address], [place] [id number] Maria Alejandra Jung MD Coordination Of Care 01/19/2024 7:58 EDT - 01/19/2024 23:59 EDT Hospital Encounter [facility] Breast Imaging Mammography - [address] [id number] Encounter for screening mammogram for malignant neoplasm of breast Discharge Disposition: Home or Self Care 01/10/2024 Telephone [facility] - [address] [address] Mitzy Noble MD Results 01/09/2024 10:17 EDT - 01/09/2024 11:58 EDT Hospital Encounter [facility] - [address] [place] [address] Acute vaginitis (Primary Dx); Dysuria Discharge Disposition: Home or Self Care 01/09/2024 Travel 01/07/2024 13:30 EDT Office Visit [facility] Hematology & Oncology [address] [phone] Maria Alejandra Jung MD MGUS (monoclonal gammopathy of unknown significance) (Primary Dx) 01/07/2024 12:45 EDT Phlebotomy Only [facility] Hematology & Oncology [address] [phone] Blood Doctor, [facility] Hem Onc Unknown Code (Primary Dx); Other specified disorders of bone density and structure, unspecified site; Essential (primary) hypertension; MGUS (monoclonal gammopathy of unknown significance) 01/07/2024 10:21 EDT - 01/07/2024 23:59 EDT Hospital Encounter [facility] Radiology Xray Outpatient - [address] [id number] Left foot pain Discharge Disposition: Home or Self Care 01/03/2024 Orders Only [facility] Hematology & Oncology - [address] [phone] Yolande Brewer RN MGUS (monoclonal gammopathy of unknown significance) (Primary Dx) 12/31/2023 Transcribe Orders [facility] LAB CLINICAL SUPPORT Alina Olivares MD Other specified disorders of bone density and structure, unspecified site (Primary Dx); Essential (primary) hypertension 12/11/2023 14:34 EDT - 12/11/2023 15:34 EDT Hospital Encounter [facility] - [address] [phone] Jorge Layton MD Dysuria (Primary Dx) Discharge Disposition: Home or Self Care from Last 3 Months Surgical History Surgery Date Site/Laterality Comments SPINE SURGERY spinal cord stimulator HYSTERECTOMY TONSILLECTOMY AND ADENOIDECTOMY BUNIONECTOMY Medical History Medical History Date Comments Hypertension Thyroid disease Leaky heart valve Sciatica COPD (chronic obstructive pulmonary disease) ( [facility]) Hypercholesteremia Social History Tobacco Use Types [...] Body Mass Index 23.52 01/09/2024 1010 EDT Plan of Treatment Upcoming Encounters Date Type Department Care Team (Late st Contact Info) Description 05/14/2024 15:10 [facility] Radiology CT - [address] [address] Health Maintenance Due Date Last Done Comments RSV Immunization ( o r 60+ Years) (1 - 1-dose 60+ series) 2017 Fall Risk Screening 2022 COVID-19 Vaccine (3 - 2022-2 4 season) 2023 10/07/2021, 04/11/2021 Hepatitis C Screen Completed 10/07/2021, 0 10/07/2021, 07/15/2021, Additional history exists Lung Cancer Screening Discontinued 12/15/2022 Medical Devices Implanted Type Area Theatrical Performer Device Identifier Shelf Expiration Date Model / [...] we will contact your patient directly. [address] [place] [address] [facility] [phone] [id number] Narrative 01/19/2024 19:14 EDT MA BREAST SCREENING EDWIN BILATERAL ??01/19/2024 8:06 AM History: ROUTINE Comparison: ??Comparison has been made to previous images . ? Technique: Routine 3D tomosynthesis with synthesized 2D views with CAD Breast Composition: There are scattered areas of fibroglandular density. Bilateral Breast Findings: ??No significant masses, calcifications or other abnormalities are seen. Resulting Agency Comment [id number] Procedure Note Ama Mcdowell MD MPH - [...] needed we will contact yourpatient directly. [address] [place] [address] [facility] [phone] [id number] Alina Montenegro MD IMG MAMMOGRAPHY GITA CAR * (ABNORMAL) VAGINAL CTGC AND VAGINITIS/VAGINOSIS MOLECULAR DETECTION (01/09/2024 11:19 EDT) Dianne glabrata Positive(A) Negative 01/10/2024 15:14 EDT [facility] Trichomonas Vaginalis Negative Negative 01/10/2024 15:14 EDT [facility] BV (Bacterial vaginosis) Negative Negative 01/10/2024 15:14 EDT [facility] Neisseria gonorrhoeae Result Negative Negative 01/10/2024 15:14 EDT [facility] Chlamydia trachomatis Result Negative Negative 01/10/2024 15:14 EDT [facility] Dianne Species Positive(A) Negative 01/10/20 15:14 EDT [facility] Swab VAGINAL STRUCTURE / Unknown Swab / Unknown 01/09/2024 11:19 EDT 01/09/2024 11:19 EDT Gabby Ocampo PA-C MICROBIOLOGY - GENERAL ORDERABLES [facility] [address] [place] [address] * UA SEDIMENT + REFLEX TO CULTURE (01/09/2024 10:27 EDT) Only the most recent of2 resultswithin the time period is included. Urine RBC Count, Auto 0 - 2 0 - 2 Cells/HPF 01/09/2024 11:51 EDT [facility] Urine WBC Count, Auto 0 - 3 0 - 3 Cells/HPF 01/09/2024 11:51 EDT [facility] Urine Squamous Count, Auto None Seen None Seen Cells/HPF 01/09/2024 11:51 EDT [facility] Urine Hyaline Cast Count, Auto <=10 <=10 Casts/LPF 01/09/2024 11:51 EDT [facility] Urine Bacteria Count, Auto None Seen None Seen Bacteria/H PF 01/09/2024 11:51 EDT [facility] Urine URINE SPECIMEN OBTAINED BY CLEAN CATCH PROCEDURE / Unknown Urine Collect / Unknown 01/09/2024 10:27 EDT 01/09/2024 10:27 EDT Narrative [facility] - 01/09/2024 11:51 EDT NOTE: Reflex to Urine Culture test is not indicated based on Urine Sediment Analysis results. Urine Sediment Analysis results are unreliable on urines that are unrefrigerated for >2 hrs or refrigerated >8 hrs. Gabby Ocampo PA-C URINALYSIS ORD ERABLES Performing Organization Address City/[facility]/ZIP Co de Phone Number [facility] [address] [place] [address] * POCT CSN BARCODE URINE DIPSTICK (01/09/2024 10:26 EDT) Only the most recent of2 resultswithin the time period is included. Urine URINE SPECIMEN OBTAINED BY CLEAN CATCH PROCEDURE / Unknown Urine Collect / Unknown 01/09/2024 10:26 EDT 01/09/2024 10:26 EDT Mitzy Noble MD LAB INFO SERVICE AND SUPPORT & PHONE RESULT Performing Organization Address [facility] Co de Phone Number [facility] [address] [place] [address] * (ABNORMAL) POCT URINE DIPSTICK, CLINITEK (01/09/2024 10:25 EDT) Only the most recent of2 resultswithin the time period is included. Color, UA Yellow Yellow 01/09/2024 10:27 EDT [facility] Clarity, UA Clear Clear 01/09/2024 10:27 EDT [facility] Glucose, UA Negative Negative mg/dL 01/09/2024 10:27 EDT [facility] Bilirubin, UA Negative Negative 01/09/2024 10:27 [facility] Ketones, UA Negative Negative 01/09/2024 10:27 [facility] Specific [place], Urine 1.010 1.001 - 1.030 01/09/2024 10:27 [facility] Blood, UA Trace(A) Negative 01/09/2024 10:27 [facility] pH, UA 6.0 <8.5 01/09/2024 10:27 [facility] Protein, UA Negative Negative mg/dL 01/09/2024 10:27 [facility] Urobilinogen, UA 0.2 0.2 - 1.0 mg/dL 01/09/2024 10:27 [facility] Nitrite, UA Negative Negative 01/09/2024 10:27 [facility] Leuk Esterase Negative Negative 01/09/2024 10:27 [facility] HN LAB COMMENT (CLINITEK, UR) Test performed at Urgent Care 01/09/2024 10:27 [facility] Urine URINE SPECIMEN OBTAINED BY CLEAN CATCH PROCEDURE / Unknown 01/09/2024 10:25 EDT 01/09/2024 10:27 EDT Mitzy Noble MD POINT OF CARE TEST O RDERABLES [facility] [address] [place] [address] * (ABNORMAL) SPEP, INCLUDES QUANTITATION OF MONOCLONAL SPIKE PERFORMABLE (01/07/2024 12:48 EDT) Albumin % 55.6(L) 55.8 - 66.1 % 01/08/2024 13:23 [facility] Albumin g/dL 4.4 3.6 - 5.2 g/dL 01/08/2024 13:23 [facility] Alpha-1 % 4.7 2.9 - 4.9 % 01/08/2024 13:23 [facility] Alpha-1 g/dL 0.40 0.15 - 0.40 g/dL 01/08/2024 13:23 [facility] Alpha-2 % 14.2(H) 7.1 - 11.8 % 01/08/2024 13:23 [facility] Alpha-2 g/dL 1.10(H) 0.50 - 1.00 g/dL 01/08/2024 13:23 [facility] Beta % 9.3 8.4 - 13.1 % 01/08/2024 13:23 [facility] Beta g/dL 0.70 0.60 - 1.20 g/dL 01/08/2024 13:23 [facility] Gamma % 16.2 11.1 - 18.8 % 01/08/2024 13:23 [facility] Gamma g/dL 1.30 0.60 - 1.60 g/dL 01/08/2024 13:23 [facility] SPEP Comment No apparent monoclonal protein seen on serum electrophoresis 01/08/2024 13:23 [facility] Comment:See scanned/suppleme ntary report. Total Protein 7.9 6.3 - 8.2 g/dL 01/08/2024 13:23 [facility] Blood VENOUS BLOOD / Unknown Venipuncture / Unknown 01/07/2024 12:48 EDT 01/07/2024 12:51 EDT Maria Alejandra Jung MD CHEMISTRY & BLOOD GA S ORDERABLES [facility] [address] [place] [address] * (ABNORMAL) SERUM FREE LIGHT CHAINS (01/07/2024 12:48 EDT) [place] Free Lt Chain 3.60(H) 0.33 - 1.94 mg/dL 01/07/2024 14:31 [facility] Lambda Free Lt Chain 1.84 0.57 - 2.63 mg/dL 01/07/2024 14:31 EDT [facility] [place]/Lambda Ratio 1.96(H) 0.26 - 1.65 01/07/2024 14:31 EDT [facility] Blood VENOUS BLOOD / Unknown Venipuncture / Unknown 01/07/2024 12:48 EDT 01/07/2024 12:51 EDT Maria Alejandra Jung MD CHEMISTRY & BLOOD GA S ORDERABLES Performing Organization Address [facility] Co de Phone Number [facility] [address] [place] [address] * VITAMIN D (25,OH) (01/07/2024 12:48 EDT) 25OH Vitamin D Tot 32 30 - 100 ng/mL 01/07/2024 16:20 EDT [facility] Comment: Vitamin D 25,OH Interpretive Ranges: Deficiency: ??<10.0 ng/mL Insufficiency: ??10.0 - 30.0 ng/mL Sufficiency: ??30.0 - 100.0 ng/mL Toxicity: ??>100.0 ng/mL Blood VENOUS BLOOD / Unknown Venipuncture / Unknown 01/07/2024 12:48 EDT 01/07/2024 12:51 EDT Alina Montenegro MD CHEMISTRY & BLOOD GA S ORDERABLES Performing Organization Address [facility] Co de Phone Number [facility] [address] [place] [address] * (ABNORMAL) COMPLETE BLOOD COUNT AND DIFFERENTIAL (01/07/2024 12:48 EDT) WBC 7.79 4.00 - 12.40 K/cmm 01/07/2024 13:03 EDT [facility] RBC 3.92 3.86 - 5.04 M/cmm 01/07/2024 13:03 [facility] Hemoglobin 12.6 11.6 - 15.2 g/dL 01/07/2024 13:03 [facility] HCT 34.6(L) 34.9 - 44.4 % 01/07/2024 13:03 [facility] MCV 88 81 - 98 fL 01/07/2024 13:03 [facility] MCH 32.1 26.7 - 33.3 pg 01/07/2024 13:03 [facility] MCHC 36.4(H) 32.1 - 35.9 g/dL 01/07/2024 13:03 [facility] RDW-CV 13.1 <14.7 % 01/07/2024 13:03 [facility] RDW-SD 42.3 <50.4 fl 01/07/2024 13:03 [facility] PLT 295 141 - 377 K/cmm 01/07/2024 13:03 [facility] MPV 9.7 9.5 - 12.7 fL 01/07/2024 13:03 [facility] % Neutrophils 51.8 % 01/07/2024 13:03 [facility] % Lymphocytes 35.9 % 01/07/2024 13:03 [facility] % Monocytes 10.5 % 01/07/2024 13:03 [facility] % Eosinophils 1.0 % 01/07/2024 13:03 [facility] % Basophils 0.5 % 01/07/2024 13:03 [facility] % Immature Grans 0.3 % 01/07/20 13:03 [facility] Absolute Neutrophils 4.03 2.20 - 8.85 K/cmm 01/07/2024 13:03 [facility] Absolute Lymphocytes 2.80 1.09 - 3.30 K/cmm 01/07/2024 13:03 [facility] Absolute Monocytes 0.82(H) 0.10 - 0.80 K/cmm 01/07/2024 13:03 EDT [facility] Absolute Eosinophils 0.08 0.03 - 0.61 K/cmm 01/07/2024 13:03 EDT [facility] ABS Basophils 0.04 0.01 - 0.11 K/cmm 01/07/2024 13:03 EDT [facility] Absolute Immature Grans 0.02 0.00 - 0.06 K/cm 01/07/2024 13:03 EDT [facility] Type of Differential: Auto 01/07/2024 13:03 EDT [facility] Blood VENOUS BLOOD / Unknown Venipuncture / Unknown 01/07/2024 12:48 EDT 01/07/2024 12:51 EDT Maria Alejandra Jung MD PACKAGES & DNA PROBE ORDERABLES Performing Organization Address City/[facility]/ZIP Co de Phone Number [facility] [address] [place] [phone] * PROTEIN, TOTAL (01/07/2024 12:48 EDT) Blood VENOUS BLOOD / Unknown Venipuncture / Unknown 01/07/2024 12:48 EDT 01/07/2024 12:51 EDT Maria Alejandra Jung MD CHEMISTRY & BLOOD GA S ORDERABLES Performing Organization Address City/[facility]/ZIP Co de Phone Number [facility] [address] [place] [address] * (ABNORMAL) COMPREHENSIVE METABOLIC PANEL (CMP) (01/07/2024 12:48 EDT) Sodium 137 136 - 145 mmol/L 01/07/2024 14:11 EDT [facility] Potassium 4.6 3.5 - 5.0 mmol/L 01/07/2024 14:11 EDT [facility] Chloride 98 96 - 110 mmol/L 01/07/2024 14:11 EDT [facility] CO2 Total 26 22 - 32 mmol/L 01/07/2024 14:11 [facility] Glucose 82 70 - 99 mg/dl 01/07/2024 14:11 [facility] BUN 11 10 - 26 mg/dL 01/07/2024 14:11 [facility] Creatinine 0.73 0.52 - 1.04 mg/dL 01/07/2024 14:11 [facility] eGFR 91 >60 mL/min/1.7 3m2 01/07/2024 14:11 [facility] Total Protein 7.9 6.3 - 8.2 g/dL 01/07/2024 14:11 [facility] Albumin 4.6 3.4 - 4.9 g/dL 01/07/2024 14:11 [facility] Alkaline Phosphatase 83 38 - 126 U/L 01/07/2024 14:11 [facility] AST 45 15 - 46 U/L 01/07/2024 14:11 [facility] ALT 38(H) <35 U/L 01/07/2024 14:11 [facility] Bilirubin, Total 0.6 <1.4 mg/dL 01/07/20 14:11 [facility] Calcium 9.5 8.5 - 10.5 mg/dL 01/07/2024 14:11 [facility] Albumin/Globulin Ratio 1.4 1.0 - 2.5 01/07/2024 14:11 [facility] Anion Gap 13 5 - 14 mmol/L 01/07/2024 14:11 [facility] Blood VENOUS BLOOD / Unknown Venipuncture / Unknown 01/07/2024 12:48 EDT 01/07/2024 12:51 EDT Maria Alejandra Jung MD CHEMISTRY & BLOOD GA S ORDERABLES [facility] [address] [place] [address] * XR FOOT LEFT 3 [...] narrowing of the first MTP joint space. [id number] Narrative 01/07/2024 12:58 EDT EXAM/TECHNIQUE: XR FOOT LEFT 3 OR MORE VIEWS ??01/07/2024 10:29 AM HISTORY: ?? Left foot pain, nonresponsive to spinal cord stimulation. COMPARISON: None. Resulting Agency Comment [id number] Procedure Note Lexx Lopez, DO - 01/07/2024 [...] narrowing of the first MTP joint space. [id number] Nikolas Velásquez MD IMG DIAGNOSTIC IMAGI NG [...] Screening Reporting and Data System (ACR LungRADS [id number]) as below: Category 0: Incomplete (part or [...] above interpretation and agree with the findings. [id number] Narrative 12/15/2022 15:[address] CHEST LOW [...] Lung Screening Reporting and Data System (ACRLungRADS [id number]) as below: Category 0: Incomplete (part or [...] the above interpretation andagree with the findings. [id number] Alina Montenegro MD IMG CT ORDERABLES * (ABNORMAL) HEPATITIS C AB W REFLEX TO HCV RNA BY PCR (10/07/2021 15:37 EDT) Hep C Antibody Reactive(A ) Negative 10/10/2021 12:36 EDT [facility] Comment: Supplemental testing for HCV RNA is ordered to rule out active HCV infection. Blood VENOUS BLOOD / Unknown 10/07/2021 15:37 EDT 10/08/2021 21:53 EDT Provider Outr Resulting Lab CHEMISTRY & BLOOD GAS ORDERABLES [facility] [address] [place] [address] from Last 3 Months or Most Recently Relevant to Health Maintenance Care Teams Talent Assistant Relationship Specialty Start Date End Date Alina Montenegro MD [address] [place] [phone] PCP - General 08/17/21
--- OUTSIDE RECORDS SUMMARY | 2024-01-28 18:24 | XMS_ITS | Encounter Summary ---
Author Organization [facility] Address [address] [place] [address] Care Team Providers Care Annealing Furnace Tender Name Role Phone Alina Santacruz MD Primary Care Provider [phone] Reason for Referral * Radiology Services (Routine/Next Available) - Authorization Not Required Specialty Diagnoses / Procedures Referred By Radha casey Referred To Contact Diagnoses Encounter for screening mammogram for malignant neoplasm of breast Procedures MA BREAST SCREENING EDWIN BILATERAL Alina Santacruz MD [address] [place] [phone] [facility] Referral ID Status Reason Start Date Expiration Date Visits Requested Visits Authorized [id number] Authorization Not Required 01/17/2024 1 1 Reason for Visit * Radiology Services (Routine/Next Available) - Authorization Not Required Specialty Diagnoses / Procedures Referred By Radha casey Referred To Contact Diagnoses Encounter for screening mammogram for malignant neoplasm of breast Procedures MA BREAST SCREENING EDWIN BILATERAL Alina Santacruz MD [address] [phone] [facility] Referral ID Status Reason Start Date Expiration Date Visits Requested Visits Authorized [id number] Authorization Not Required 01/17/2024 1 1 Encounter Details Date Type Department Care Team (Latest Contact Info) Description 01/19/2024 7:58 EDT - 01/19/2024 23:59 EDT Hospital Encounter [facility] Breast Imaging Mammography - Main [address] [address] Encounter for screening mammogram for malignant neoplasm of breast Discharge Disposition: Home or Self Care Social [...] capsule Take 1 Capsule by mouth daily. fluconazole (DIFLUCAN) 150 mg tablet Take 1 Tablet by mouth Once for 1 dose. 1 Tablet 01/10/2024 folic acid (FOLVITE) 1 mg tablet Take [...] (Late st Contact Info) Description 05/14/2024 15:10 [facility] [place] [address] documented as of this encounter Procedures Procedure Name Priority Date/Time Associated Diagnosis Comments MA BREAST SCREENING EDWIN BILATERAL Routine 01/19/2024 8:28 EDT Encounter for screening mammogram for malignant neoplasm of breast documented in this encounter Results * MA BREAST SCREENING EDWIN BILATERAL [...] needed we will contact your patient directly. [address] [place] [address].- [facility] [phone] [id number] Narrative 01/19/2024 19:14 EDT MA BREAST SCREENING EDWIN BILATERAL ??01/19/2024 8:06 AM History: ROUTINE Comparison: ??Comparison has been made to previous images . ? Technique: Routine 3D tomosynthesis with synthesized 2D views with CAD Breast Composition: There are scattered areas of fibroglandular density. Bilateral Breast Findings: ??No significant masses, calcifications or other abnormalities are seen. Resulting Agency Comment [id number] Procedure Note Ama Mcdowell MD MPH - [...] is needed we will contact yourpatient directly. [address] [place] [id number] [place] [address].- [facility] [phone] [id number] Alina Santacruz MD IMG MAMMOGRAPHY GITA CAR documented in this encounter Visit Diagnoses Diagnosis Encounter for screening mammogram for malignant neoplasm of breast Other screening mammogram documented in this encounter Care Teams Annealing Furnace Tender Relationship Specialty Start Date End Date Alina Santacruz MD [address] [place] [phone] PCP - General 08/17/21 documented as of this encounter
--- OUTSIDE RECORDS SUMMARY | 2024-01-28 18:25 | XMS_ITS | Encounter Summary ---
Author Organization [facility] Address [address] [place] [address] Care Team Providers Care Priming Machine Operator Name Role Phone Alina Santacruz MD Primary Care Provider [phone] Encounter Details Date Type Department Care Team [...] (Late st Contact Info) Description 05/14/2024 15:10 [facility] Radiology CT - [facility] [address] [place] [address] documented as of this encounter Visit Diagnoses Not on filedocumented in this encounter Care Teams Priming Machine Operator Relationship Specialty Start Date End Date Alina Santacruz MD [address] [place] [phone] PCP - General 08/17/21 documented as of this encounter
--- OUTSIDE RECORDS SUMMARY | 2024-01-28 18:25 | XMS_ITS | Encounter Summary ---
Author Organization [facility] Address [address] [place] [address] Care Team Providers Care Dairy Bar Manager Name Role Phone Alina Santacruz MD Primary Care Provider [phone] Reason for Visit * Reason Onset Date Comments Appointment Related 07/19/2023 Encounter Details Date Type Department Care Team (Late st Contact Info) Description 07/19/2023 Telephone [facility] Interventional Pain [address] [place] [address] Beka Turner, EMMA Appointment Related [...] has declined to give permission for [facility] to verbally discuss any information with anyone other than the patient. Permission remains in effect until the patient elects to revoke it. * Telephone Encounter - Cami Archer RN - 08/02/2023 1249 EST 08/02/2023: RN attempted to call pt slider assembler Hoa Casas as call was listed as a high priority. No answer. RN left a message advising Ms Casas that JANAK Jimenez would be out until Sunday but if she needed immediate assistance to call me back at [phone]. FYI to JANAK Jimenez. * Telephone Encounter - Katrin Uriostegui - 08/02/2023 1238 EST Pts manager case, Hoa Casas, called to speak kayla Forbes. She states Pt is scheduled for a 2nd opinion at [facility] on SundayAugust 05. She wanted to touch base kayla Forbes before pt's scheduled follow up on 08/21/23, as she was unclear about the treatment plan moving forward. Please call her back to discuss @ [phone]. * Telephone Encounter - Leidy Jimenez PA-C [...] have reached out to Leah Schmidt, the loan processing supervisor at [facility] to [...] (Late st Contact Info) Description 05/14/2024 15:10 EST Appointment [facility] Radiology CT - [address] [address] documented as of this encounter Visit Diagnoses Not on filedocumented in this encounter Care Teams Dairy Bar Manager Relationship Specialty Start Date End Date Alina Santacruz MD [address] [place] [phone] PCP - General 08/17/21 documented as of this encounter
--- OUTSIDE RECORDS SUMMARY | 2024-01-28 18:25 | XMS_ITS | Encounter Summary ---
Author Organization [facility] Address [address] [place] [address] Care Team Providers Care Ornamental Iron Worker Helper Name Role Phone Alina Santacruz MD Primary Care Provider [phone] Reason for Referral * Consult (Routine/Next Available) - Authorization Not Required Specialty Diagnoses / Procedures Referred By Radha casey Referred To Contact Orthopedic Surgery Diagnoses Left leg pain Brannon Nelson MD [address] [place] [address], [address] [place] [address] [facility] [address] [facility] [place] [address] Referral ID Status Reason Start Date Expiration Date Visits Requested Visits Authorized [id number] Authorization Not Required Specialty Services Required 06/11/2023 [...] 14:20 EST - 06/11/2023 19:[address] [facility] Emergency Department - [address] [address] Elan Chau MD 111 [facility], [facility] [address] [place] [address] Brannon Nelson MD [address] [address] Left leg pain (Primary Dx) [...] 2.5-2.5 mcg/actuation inhaler Inhale as directed daily. albuterol 90 mcg/actuation inhaler Inhale 180 mcg as directed every 4 hours. 01/07/2024 amitriptyline (ELAVIL) 25 mg tablet Take 25 mg by mouth daily. 01/07/2024 candesartan (ATACAND) 4 mg tablet Take 4 mg by mouth daily. 01/07/2024 clobetasoL (TEMOVATE) 0.05 % cream Apply topically 2 times daily. 01/07/2024 fosinopriL-hydrochlor othiazide (MONOPRIL-HCT) 10-12.5 mg per tablet Take 1 Tablet by mouth daily. 01/07/2024 predniSONE (DELTASONE) 20 mg tablet Take 2 Tablets by mouth daily for 5 days. 10 Tablet 06/11/2023 06/16/2023 promethazine (PHENERGAN) 25 mg tablet Take 25 mg by mouth every 4 hours. 01/07/2024 sodium,potassium,mag sulfates (SUPREP BOWEL PREP) kit Please follow instructions provided by GI office. 1 Kit 11/08/2022 01/07/2024 documented as of this encounter Ordered Prescriptions Prescription Sig Dispensed Refills Start Date End Da te predniSONE (DELTASONE) 20 mg tablet Take 2 Tablets by mouth daily for 5 days. 10 Tablet 06/11/2023 06/16/2023 documented in this encounter Discharge Disposition Disposition Code Departure Means Destination Comment s Home or Self [facility] documented in this encounter ED Notes * Rangel Levy RN - 06/11/2023 1923 EST 1850. Patient ambulatory to restroom with steady gait. 1929: Discharge vital signs stable. PIV removed. AVS [...] and her partner report being seen by Package Center Supervisor who recommended she go to the ED [...] presents to the ED today on her watch caser's recommendation. Patent hasn't seen her PCP lately [...] or overt thought disorder Procedures Procedures * Brannno Nelson MD - 06/11/2023 1400 EST EMERGENCY [...] Contact Info) Description 05/14/2024 15:10 EST [facility]ment [facility] Radiology [facility] - [address] [address] Scheduled Referrals Name Type Priority Associated Diagnoses Order Schedule AMB CONS/FOLLOW UP ORTHOPEDICS - [facility] Outpatient Referral Routine/Next Available Left leg pain [...] 7:52 EST) 06/12/2023 7:52 EST Scan 2 Sales Floor Manager PROCEDURE/MINOR OMID GICAL ORDERABLES * (ABNORMAL) BASIC METABOLIC PANEL (BMP) (06/11/2023 14:34 EST) Sodium 137 136 - 145 mmol/L 06/11/2023 17:01 EST [facility] Potassium 4.5 3.5 - 5.0 mmol/L 06/11/2023 17:01 EST [facility] Chloride 102 96 - 110 mmol/L 06/11/2023 17:01 [facility] CO2 Total 30 22 - 32 mmol/L 06/11/2023 17:01 [facility] Anion Gap 5 5 - 14 mmol/L 06/11/2023 17:01 [facility] Glucose 101(H) 70 - 99 mg/dl 06/11/2023 17:01 [facility] Calcium 9.6 8.5 - 10.5 mg/dL 06/11/2023 17:01 [facility] BUN 12 10 - 26 mg/dL 06/11/2023 17:01 [facility] Creatinine 0.79 0.52 - 1.04 mg/dL 06/11/2023 17:01 [facility] eGFR 82 >60 mL/min/1.73 m2 06/11/2023 17:01 [facility] Blood VENOUS BLOOD / Unknown Venipuncture / Unknown 06/11/2023 14:34 EST 06/11/2023 14:40 EST Brannon Nelson MD CHEMISTRY & BLOOD GA S ORDERABLES Performing Organization Address City/State/[facility] Co de Phone Number [facility] [address] [place] [address] * COMPLETE BLOOD COUNT AND DIFFERENTIAL (06/11/2023 14:34 EST) WBC 7.08 4.00 - 12.40 K/cmm 06/11/2023 16:51 [facility] RBC 4.29 3.86 - 5.04 M/cmm 06/11/2023 16:51 [facility] Hemoglobin 13.7 11.6 - 15.2 g/dL 06/11/2023 16:51 [facility] HCT 38.7 34.9 - 44.4 % 06/11/2023 16:51 [facility] MCV 90 81 - 98 fL 06/11/2023 16:51 [facility] MCH 31.9 26.7 - 33.3 pg 06/11/2023 16:51 [facility] MCHC 35.4 32.1 - 35.9 g/dL 06/11/2023 16:51 [facility] RDW-CV 13.4 <14.7 % 06/11/2023 16:51 [facility] RDW-SD 44.7 <50.4 fl 06/11/2023 16:51 [facility] PLT 246 141 - 377 K/cmm 06/11/2023 16:51 [facility] MPV 11.5 9.5 - 12.7 fL 06/11/2023 16:51 [facility] % Neutrophils 54.1 % 06/11/2023 16:51 [facility] % Lymphocytes 35.2 % 06/11/2023 16:51 [facility] % Monocytes 8.6 % 06/11/2023 16:51 [facility] % Eosinophils 1.4 % 06/11/2023 16:51 [facility] % Basophils 0.4 % 06/11/2023 16:51 [facility] % Immature Grans 0.3 % 06/11/19 16:51 [facility] Absolute Neutrophils 3.83 2.20 - 8.85 K/cmm 06/11/2023 16:51 [facility] Absolute Lymphocytes 2.49 1.09 - 3.30 K/cmm 06/11/2023 16:51 [facility] Absolute Monocytes 0.61 0.10 - 0.80 K/cmm 06/11/2023 16:51 [facility] Absolute Eosinophils 0.10 0.03 - 0.61 K/cmm 06/11/2023 16:51 [facility] ABS Basophils 0.03 0.01 - 0.11 K/cmm 06/11/2023 16:51 [facility] Absolute Immature Grans 0.02 0.00 - 0.06 K/cmm 06/11/2023 16:51 [facility] Type of Differential: Auto 06/11/2023 16:51 [facility] Blood VENOUS BLOOD / Unknown Venipuncture / Unknown 06/11/2023 14:34 EST 06/11/2023 14:40 EST Brannon Nelson MD PACKAGES & DNA PROBE ORDERABLES [facility] [address] [place] [address] * HOLD BLUE TOP (06/11/2023 14:34 EST) Hold Hold 06/11/2023 16:01 EST [facility] Blood VENOUS BLOOD / Unknown Venipuncture / Unknown 06/11/2023 14:34 EST 06/11/2023 14:57 EST Elan Chau MD LAB INFO SERVICE AN D SUPPORT & PHONE RESULT Performing Organization Address [facility] Co de Phone Number [facility] [address] [place] [address] * HOLD SST (06/11/2023 14:34 EST) Hold Hold 06/11/2023 15:46 EST [facility] Blood VENOUS BLOOD / Unknown Venipuncture / Unknown 06/11/2023 14:34 EST 06/11/2023 14:40 EST Elan Chau MD LAB INFO SERVICE AN D SUPPORT & PHONE RESULT Performing Organization Address City/[facility]/ZIP Co de Phone Number [facility] [address] [place] [address] * HOLD LAVENDER TOP (06/11/2023 14:34 EST) Hold Hold 06/11/2023 15:46 EST [facility] Blood VENOUS BLOOD / Unknown Venipuncture / Unknown 06/11/2023 14:34 EST 06/11/2023 14:40 EST Elan Chau MD LAB INFO SERVICE AN D SUPPORT & PHONE RESULT [facility] [address] [place] [address] * HOLD GREEN TOP (06/11/2023 14:34 EST) Hold Hold 06/11/2023 15:46 EST [facility] Blood VENOUS BLOOD / Unknown Venipuncture / Unknown 06/11/2023 14:34 EST 06/11/2023 14:40 EST Elan Chau MD LAB INFO SERVICE AN D SUPPORT & PHONE RESULT [facility] [address] [place] [address] * EKG 12-LEAD (06/11/2023 14:20 EST) 06/11/2023 14:2 0 EST Narrative [facility] EKG - 06/12/2023 7:45 EST ?[facility] Emergency ? Test Date: ?2023-06-11 Pat Name: ? DANIELLE GILMAN ? Department: ?? ED ? Room: ? Gender: ? Female ? Farm Operator: ?? [id number] : ?1955 ? Requested By: JORGE Wilkinson Order Number: [id number] ? Allie DUQUE: ?? TRACE CECILLE DUQUE ? Measurements Intervals ?[place] ? Rate: ? 66 ? P: ?21 WV: ? 234 ?QRS: ?20 QRSD: ? 89 ? T: ?52 QT: ? 388 ? QTc: ?409 ? Interpretive Statements SINUS RHYTHM WITH FIRST DEGREE AV BLOCK Nonspecific ST/Twave abnormality Compared to ECG 12/18/2021 14:05:42 No significant changes I reviewed the tracing and have either agreed or edited the findings in this report. Electronically Signed On 06-12-2023 07:45:55 EST by JOANNA LAKE MD. Procedure Note Joanna Lake MD - 06/12/2023 [facility] Test Date: 2023-06-11 Pat Name: DANIELLE GILMAN Department: ED Room: Gender: Female Farm Operator: [id number] : 1955 Requested By: JORGE Wilkinson Order Number: [id number] Reading MD: JOANNA LAKE MD Measurements Intervals [place] Rate: 66 P: 21 WV: 234 QRS: 20 QRSD: 89 T: 52 QT: 388 QTc: 409 Interpretive Statements SINUS RHYTHM WITH FIRST DEGREE AV BLOCK Nonspecific ST/Twave abnormality Compared to ECG 12/18/2021 14:05:42 No significant changes I reviewed the tracing and have either agreed or edited the findings inthis report. Electronically Signed On 06-12-2023 07:45:55 EST by JOANNA ARIZA. Elan Chua MD CARDIAC ECG ORDERAB LES [facility] EKG documented in this encounter Visit [...] mg, oral, NOW X1, 1 dose, On 06/11/23 at 1700, STAT 1706 (Given - Provid er: Annita Cam RN) documented in this encounter Care Teams Ornamental Iron Worker Helper Relationship Specialty Start Date End Date Alina Santacruz MD [address] [place] [phone] PCP - General 08/17/21 documented as of this encounter
--- OUTSIDE RECORDS SUMMARY | 2024-01-28 18:25 | XMS_ITS | Encounter Summary ---
Author Organization [facility] Address [address] [place] [address] Care Team Providers Care Physician Office Clin Asst Name Role Phone Alina Santacruz MD Primary Care Provider [phone] Reason for Referral * PT/OT/ST (Routine/Next Available) - Closed Specialty Diagnoses / Procedures Referred By Radha casey Referred To Contact Diagnoses Chronic bilateral low back pain with left-sided sciatica Ayush Shirley PA-C [address] [place] [phone] Referral ID Status Reason Start Date Expiration Date V isits Requested Visits Authorized [id number] Closed Specialty Services Required 06/18/2023 1 1 Question Answer Reason for Request: lumbar and abdominal strengthening core stabilization with a home exercise program * Consult (Routine/Next Available) - Authorization Not Required Specialty Diagnoses / Procedures Referred By Radha casey Referred To Contact Pain Medicine Diagnoses Chronic bilateral low back pain with left-sided sciatica Ayush Shirley PA-C [address] [place] [address] [facility] [address] [place] [address] Referral ID Status Reason Start Date Expiration Date Visits Requested Visits Authorized [id number] Authorization Not Required Specialty Services Required 4 [...] Diagnoses Left leg pain Brannon Nelson MD [address] [place] [address], [address] [place] [address] [facility] [address] [place] [address] Referral ID Status Reason Start Date Expiration Date Visits Requested Visits Authorized [id number] Authorization Not Required Specialty Services Required 06/11/2023 1 1 Encounter Details Date Type Department Care Team (Late st Contact Info) Description 06/18/2023 11:40 EST Office Visit [facility] [place] [address] Ayush Shirley PA-C [address] [facility] [place] [address] Chronic bilateral low back pain [...] She has not had physical therapy received healthcare administrative assistant or injections. She has had injections in [...] naloxone (NARCAN) 4 mg/actuation nasal spray 1 [place] by nasal route as needed for Opioid [...] the resident/ fellow's note. Jass Lubin M.D. [facility] Neurology ABPN Board Certified, Neurology ABEM [...] Contact Info) Description 05/14/2024 15:10 EST Appointment [facility] Radiology CT - [address] [address] Scheduled Referrals Name Type Priority Associated Diagnoses [...] Primary documented in this encounter Care Teams Physician Office Clin Asst Relationship Specialty Start Date End Date Alina Santacruz MD [address] [place] [phone] PCP - General 08/17/21 documented as of this encounter
--- OUTSIDE RECORDS SUMMARY | 2024-01-28 18:25 | XMS_ITS | Encounter Summary ---
Author Organization [facility] Address [address] [place] [address] Care Team Providers Care General Operations Agent Name Role Phone Alina Santacruz MD Primary Care Provider [phone] Encounter Details Date Type Department Care Team (Late Contact Info) Description 06/26/2023 Lab Requisition [facility] Pathology & [place] [address] Outr Resulting Lab, Provider Social History Tobacco [...] Department Care Team (Late Contact Info) Description 05/14/2024 15:10 EST Appointment [facility] Radiology CT - [address] [address] documented as of this encounter [...] 56.2 55.8 - 66.1 % 06/27/2023 14:07 [facility] Albumin g/dL 4.2 3.6 - 5.2 g/dL 06/27/2023 14:07 [facility] Alpha-1 % 4.5 2.9 - 4.9 % 06/27/2023 14:07 [facility] Alpha-1 g/dL 0.30 0.15 - 0.40 g/dL 06/27/2023 14:07 [facility] Alpha-2 % 13.7(H) 7.1 - 11.8 % 06/27/2023 14:07 [facility] Alpha-2 g/dL 1.00 0.50 - 1.00 g/dL 06/27/2023 14:07 [facility] Beta % 9.4 8.4 - 13.1 % 06/27/2023 14:07 [facility] Beta g/dL 0.70 0.60 - 1.20 g/dL 06/27/2023 14:07 [facility] Gamma % 16.2 11.1 - 18.8 % 06/27/2023 14:07 [facility] Gamma g/dL 1.20 0.60 - 1.60 g/dL 06/27/2023 14:07 [facility] SPEP Comment No apparent monoclonal protein seen on serum electrophoresis 06/27/2023 14:07 [facility] Comment:See scanned/suppleme ntary report. Total Protein 7.5 6.3 - 8.2 g/dL 06/27/2023 14:07 [facility] Blood VENOUS BLOOD / Unknown 06/25/2023 13:30 EST 06/26/2023 17:32 EST Provider Outr Resulting Lab CHEMISTRY & BLOOD GAS ORDERABLES Performing Organization Address [facility] Co de Phone Number [facility] [address] [place] [address] * PROTEIN, TOTAL (06/25/2023 13:30 EST) Blood VENOUS BLOOD / Unknown 06/25/2023 13:30 EST 06/26/2023 17:32 EST Provider Outr Resulting Lab CHEMISTRY & BLOOD GAS ORDERABLES Performing Organization Address [facility] Co de Phone Number [facility] [address] [place] [address] * (ABNORMAL) SERUM FREE LIGHT CHAINS (06/25/2023 13:30 EST) [place] Free Lt Chain 3.50(H) 0.33 - 1.94 mg/dL 06/27/2023 9:[address] [facility] Lambda Free Lt Chain 1.68 0.57 - 2.63 mg/dL 06/27/2023 9:[address] [facility] [place]/Lambda Ratio 2.08(H) 0.26 - 1.65 06/27/2023 9:[address] [facility] Blood VENOUS BLOOD / Unknown 06/25/2023 13:30 EST 06/26/2023 17:32 EST Provider Outr Resulting Lab CHEMISTRY & BLOOD GAS ORDERABLES Performing Organization Address [facility] Co de Phone Number [facility] [address] [place] [address] documented in this encounter Visit Diagnoses Not on filedocumented in this encounter Care Teams General Operations Agent Relationship Specialty Start Date End Date Alina Santacruz MD [address] [place] [phone] PCP - General 3/16/22 documented as of this encounter
--- OUTSIDE RECORDS SUMMARY | 2024-01-28 18:25 | XMS_ITS | Encounter Summary ---
Author Organization [facility] Address [address] [place] [address] Care Team Providers Care Sash Assembler Name Role Phone Alina Santacruz MD Primary Care Provider [phone] Encounter Details Date Type Department Care Team (Late st Contact Info) Description 01/03/2024 Orders Only [facility] Cancer [facility] Hematology & Oncology - [address] [address] Yolande Brewer RN MGUS (monoclonal gammopathy of [...] (Late st Contact Info) Description 05/14/2024 15:10 [facility] Radiology CT - Main [place] [address] [place], [place] [id number] documented as of this encounter Results * (ABNORMAL) SERUM FREE LIGHT CHAINS (01/07/2024 12:48 EDT) [place] Free Lt Chain 3.60(H) 0.33 - 1.94 mg/dL 01/07/2024 14:31 EDT [facility] L[place] Free Lt Chain 1.84 0.57 - 2.63 mg/dL 01/07/2024 14:31 [facility] [place]/Lambda Ratio 1.96(H) 0.26 - 1.65 01/07/2024 14:31 [facility] Blood VENOUS BLOOD / Unknown Venipuncture / Unknown 01/07/2024 12:48 EDT 01/07/2024 12:51 EDT Maria Alejandra Jung MD CHEMISTRY & BLOOD GA S ORDERABLES [facility] [address] [place], [place] [id number] * (ABNORMAL) COMPREHENSIVE METABOLIC PANEL (CMP) (01/07/2024 12:48 EDT) Sodium 137 136 - 145 mmol/L 01/07/2024 14:11 [facility] Potassium 4.6 3.5 - 5.0 mmol/L 01/07/2024 14:11 [facility] Chloride 98 96 - 110 mmol/L 01/07/2024 14:11 [facility] CO2 Total 26 22 - 32 mmol/L 01/07/2024 14:11 [facility] Glucose 82 70 - 99 mg/dl 01/07/2024 14:11 [facility] BUN 11 10 - 26 mg/dL 01/07/2024 14:11 [facility] Creatinine 0.73 0.52 - 1.04 mg/dL 01/07/2024 14:11 [facility] eGFR 91 >60 mL/min/1.7 3m2 01/07/2024 14:11 [facility] Total Protein 7.9 6.3 - 8.2 g/dL 01/07/2024 14:11 [facility] Albumin 4.6 3.4 - 4.9 g/dL 01/07/2024 14:11 [facility] Alkaline Phosphatase 83 38 - 126 U/L 01/07/2024 14:11 [facility] AST 45 15 - 46 U/L 01/07/2024 14:11 [facility] ALT 38(H) <35 U/L 01/07/2024 14:11 [facility] Bilirubin, Total 0.6 <1.4 mg/dL 01/07/20 14:11 [facility] Calcium 9.5 8.5 - 10.5 mg/dL 01/07/2024 14:11 [facility] Albumin/Globulin Ratio 1.4 1.0 - 2.5 01/07/2024 14:11 [facility] Anion Gap 13 5 - 14 mmol/L 01/07/2024 14:11 [facility] Blood VENOUS BLOOD / Unknown Venipuncture / Unknown 01/07/2024 12:48 EDT 01/07/2024 12:51 EDT Maria Alejandra Jung MD CHEMISTRY & BLOOD GA S ORDERABLES [facility] [address] [place] [address] * (ABNORMAL) COMPLETE BLOOD COUNT AND DIFFERENTIAL (01/07/2024 12:48 EDT) WBC 7.79 4.00 - 12.40 K/cmm 01/07/2024 13:03 [facility] RBC 3.92 3.86 - 5.04 M/cmm 01/07/2024 13:03 [facility] Hemoglobin 12.6 11.6 - 15.2 g/dL 01/07/2024 13:03 [facility] HCT 34.6(L) 34.9 - 44.4 % 01/07/2024 13:03 [facility] MCV 88 81 - 98 fL 01/07/2024 13:03 [facility] MCH 32.1 26.7 - 33.3 pg 01/07/2024 13:03 [facility] MCHC 36.4(H) 32.1 - 35.9 g/dL 01/07/2024 13:03 [facility] RDW-CV 13.1 <14.7 % 01/07/2024 13:03 [facility] RDW-SD 42.3 <50.4 fl 01/07/2024 13:03 [facility] PLT 295 141 - 377 K/cmm 01/07/2024 13:03 [facility] MPV 9.7 9.5 - 12.7 fL 01/07/2024 13:03 [facility] % Neutrophils 51.8 % 01/07/2024 13:03 [facility] % Lymphocytes 35.9 % 01/07/2024 13:03 [facility] % Monocytes 10.5 % 01/07/2024 13:03 [facility] % Eosinophils 1.0 % 01/07/2024 13:03 [facility] % Basophils 0.5 % 01/07/2024 13:03 [facility] % Immature Grans 0.3 % 01/07/20 13:03 [facility] Absolute Neutrophils 4.03 2.20 - 8.85 K/cmm 01/07/2024 13:03 [facility] Absolute Lymphocytes 2.80 1.09 - 3.30 K/cmm 01/07/2024 13:03 [facility] Absolute Monocytes 0.82(H) 0.10 - 0.80 K/cmm 01/07/2024 13:03 EDT [facility] Absolute Eosinophils 0.08 0.03 - 0.61 K/cmm 01/07/2024 13:03 EDT [facility] ABS Basophils 0.04 0.01 - 0.11 K/cmm 01/07/2024 13:03 EDT [facility] Absolute Immature Grans 0.02 0.00 - 0.06 K/cmm 01/07/2024 13:03 EDT [facility] Type of Differential: Auto 01/07/2024 13:03 EDT [facility] Blood VENOUS BLOOD / Unknown Venipuncture / Unknown 01/07/2024 12:48 EDT 01/07/2024 12:51 EDT Maria Alejandra Jung MD PACKAGES & DNA PROBE ORDERABLES [facility] [address] [place] [address] documented in this encounter Visit Diagnoses Diagnosis MGUS (monoclonal gammopathy of unknown significance)- Primary Monoclonal paraproteinemia documented in this encounter Care Teams Sash Assembler Relationship Specialty Start Date End Date Alina Santacruz MD [address] [place] [phone] PCP - General 08/17/21 documented as of this encounter
--- OUTSIDE RECORDS SUMMARY | 2024-01-28 18:25 | XMS_ITS | Encounter Summary ---
Author Organization [facility] Address [address] [place] [address] Care Team Providers Care Food Processing Plant Manager Name Role Phone Alina Santacruz MD Primary Care Provider [phone] Encounter Details Date Type Department Care Team (Late Contact Info) Description 06/07/2023 14:00 EST Phlebotomy Only [facility] 2 Phlebotomy [address] [place] [address] French Tutor, Acc Phlebotomy Polyneuropathy; Abnormal thyroid function test [...] 05/14/2024 15:10 EST [facility] [place] - Main [place] [address] [place], [place] [address] documented as of this encounter Procedures Procedure Name Priority Date/Time Associated Diagnosis Comments TSH Today 06/07/2023 14:21 EST Polyneuropathy Abnormal thyroid function test FOLATE Today 06/07/2023 14:21 EST Polyneuropathy VITAMIN B12 Today 06/07/2023 14:21 EST Polyneuropathy documented in this encounter Results * FOLATE (06/07/2023 14:21 EST) Folate 13.7 See Note ng/mL 06/07/2023 15:08 EST [facility] Comment: Reference Ranges for Folate: Deficient: ?< 3.4 ng/mL Indeterminate: ??3.4 - 5.4 ng/mL Normal: ? > 5.4 ng/mL The results of this assay can be falsely elevated due to the consumption of Biotin. Blood VENOUS BLOOD / Unknown Venipuncture / Unknown 06/07/2023 14:21 EST 06/07/2023 14:27 EST Alina Santacruz MD CHEMISTRY & BLOOD GA S ORDERABLES Performing Organization Address [facility] Co de Phone Number [facility] [address] [place] [address] * VITAMIN B12 (06/07/2023 14:21 EST) Vitamin B12 415 211 - 911 pg/mL 06/07/2023 15:09 EST [facility] Blood VENOUS BLOOD / Unknown Venipuncture / Unknown 06/07/2023 14:21 EST 06/07/2023 14:27 EST Alina Santacruz MD CHEMISTRY & BLOOD GA S ORDERABLES Performing Organization Address City/[facility] Co de Phone Number [facility] [address] [place] [address] * TSH (06/07/2023 14:21 EST) TSH 3.41 0.47 - 4.68 mIU/L 06/07/2023 16:11 EST [facility] Blood VENOUS BLOOD / Unknown Venipuncture / Unknown 06/07/2023 14:21 EST 06/07/2023 14:27 EST Narrative [facility] - 06/07/2023 16:11 EST The results of this assay can be falsely lowered due to the consumption of Biotin. Alina Santacruz MD CHEMISTRY & BLOOD GA S ORDERABLES [facility] [address] [place] [address] documented in this encounter Visit Diagnoses Diagnosis Polyneuropathy Unspecified hereditary and idiopathic peripheral neuropathy Abnormal thyroid function test Nonspecific abnormal results of thyroid function study documented in this encounter Care Teams Food Processing Plant Manager Relationship Specialty Start Date End Date Alina Santacruz MD [address] [place] [phone] PCP - General 08/17/21 documented as of this encounter
--- OUTSIDE RECORDS SUMMARY | 2024-01-28 18:25 | XMS_ITS | Encounter Summary ---
Author Organization [facility] Address [address] [place] [id number] Care Team Providers Care Senior Nurse Manager Name Role Phone Alina Santacruz MD Primary Care Provider [phone] Reason for Visit * Reason Onset Date Comments Social Work 07/24/2023 Care coordinatio n Encounter Details Date Type Department Care Team ([facility] Contact Info) Description 07/24/2023 Telephone [facility] Hematology & [place] [address] Matilda Witt Social Work (Care coordination) Social [...] call. Pt shared that she has a Remote Sensing Scientist, Hoa and she thinks her CM is [...] Contact Info) Description 05/14/2024 15:10 EST Appointment [facility] Radiology CT - [address] [address] documented as of this encounter Visit Diagnoses Not on filedocumented in this encounter Care Teams Senior Nurse Manager Relationship Specialty Start Date End Date Alina Santacruz MD [address] [facility] [address] [place] [phone] PCP - General 08/17/21 documented as of this encounter
--- OUTSIDE RECORDS SUMMARY | 2024-01-28 18:25 | XMS_ITS | Encounter Summary ---
Author Organization [facility] Address [address] [place] [address] Care Team Providers Care Rooming House Keeper Name Role Phone Alina Santacruz MD Primary Care Provider [phone] Reason for Visit * Reason Comments New Patient Visit * Consult (Routine) - Authorization Not Required Specialty Diagnoses / Procedures Referred By Radha casey Referred To Contact Hematology and Oncology Diagnoses Free monoclonal light chain Alina Santacruz MD [address] [phone] [facility] Ep2 Hem/Onc [address] [place] [address] Referral ID Status Reason Start Date Expiration Date Visits Requested Visits Authorized [id number] Authorization Not Required 1 1 Encounter Details Date Type Department Care Team (Late st Contact Info) Description 07/12/2023 14:00 EST Office Visit [facility] Cancer Center Hematology & [place] [address] Maria Alejandra Jung MD [address] [facility], [facility] 2 [place] [address] MGUS (monoclonal gammopathy of unknown [...] was checked in the setting of neuropathy. #[place] light chain MGUS-Low risk I reviewed Danielle's [...] Contact Info) Description 05/14/2024 15:10 EST Appointment [facility] Radiology CT - [address] [address] documented as of this encounter Visit Diagnoses Diagnosis MGUS (monoclonal gammopathy of unknown significance)- Primary Monoclonal paraproteinemia documented in this encounter Care Teams Rooming House Keeper Relationship Specialty Start Date End Date Alina Santacruz MD [address] [place] [phone] PCP - General 08/17/21 documented as of this encounter
--- OUTSIDE RECORDS SUMMARY | 2024-01-28 18:25 | XMS_ITS | Encounter Summary ---
Author Organization [facility] Address [address] [place] [address] Care Team Providers Care Boat Carpenter Name Role Phone Alina Santacruz MD Primary Care Provider [phone] Reason for Visit * Reason Comments Abdominal [...] 9:22 EDT - 11/15/2022 14:21 EDT Emergency [facility] Emergency Department - Main [address] [address] James Byrnes MD [address] [place] [address], [address] [place] [address] Generalized abdominal pain (Primary Dx) [...] 180 mcg as directed every 4 hours. 01/07/20 amitriptyline (ELAVIL) 25 mg tablet Take 25 mg by mouth daily. 01/07/2024 candesartan (ATACAND) 4 mg tablet Take 4 mg by mouth daily. 01/07/2024 clobetasoL (TEMOVATE) 0.05 % cream Apply topically 2 times daily. 01/07/2024 fosinopriL-hydrochloro thiazide (MONOPRIL-HCT) 10-12.5 mg per tablet Take 1 Tablet by mouth daily. 01/07/2024 promethazine (PHENERGAN) 25 mg tablet Take 25 mg by mouth every 4 hours. 01/07/2024 sodium,potassium,mag sulfates (SUPREP BOWEL PREP) kit Please follow instructions provided by GI office. 1 Kit 11/08/2022 01/07/2024 documented as of this encounter Discharge Disposition Disposition Code Departure Means Destination Comment s Home or Self Penitentiary documented in this encounter ED Notes * [...] exam for emergent medical conditions at the [facility] on 11/15/2022. This documentation is recorded by Rhonda Stfaford acting as Scribe under the direction and [...] patient took 30 mg of prescription morphine [id number] which gave her minimal relief. Of note, [...] (Late st Contact Info) Description 05/14/2024 15:10 [facility] Radiology [place] - [address] [address] documented as of this encounter Procedures Procedure [...] EDT) Color, UA Yellow Yellow 11/15/2022 12:50 [facility] Clarity, UA Clear Clear 11/15/2022 12:50 [facility] Glucose, UA Negative Negative mg/dL 11/15/2022 12:50 [facility] Bilirubin, UA Negative Negative 11/15/2022 12:50 [facility] Ketones, UA Negative Negative 11/15/2022 12:50 [facility] Specific [place], Urine 1.010 1.001 - 1.035 11/15/2022 12:50 [facility] Blood, UA Trace(A) Negative 11/15/2022 12:50 [facility] pH, UA 5.5 4.6 - 8.0 11/15/2022 12:50 [facility] Protein, UA Negative Negative 11/15/2022 12:[address] [facility] Urobilinogen, UA 0.2 0.2 - 1.0 mg/dL 11/15/2022 12:[address] [facility] Nitrite, UA Negative Negative 11/15/2022 12:[address] [facility] Leuk Esterase Negative Negative 11/15/2022 12:[address] [facility] HN LAB COMMENT (CLINITEK, UR) Test performed at Emergency Department 11/15/2022 12:[address] [facility] Urine URINE SPECIMEN COLLECTION, CLEAN CATCH / Unknown 11/15/2022 12:49 EDT 11/15/2022 12:50 EDT James Byrnes MD POINT OF CARE DEVIN T ORDERABLES Performing Organization Address City/[facility]/ZIP Co de Phone Number [facility] [address] [place] [address] * POCT CSN BARCODE URINE DIPSTICK (11/15/2022 12:47 EDT) Urine URINE SPECIMEN COLLECTION, CLEAN CATCH / Unknown Urine Collect / Unknown 11/15/2022 12:47 EDT 11/15/2022 12:47 EDT James Byrnes MD LAB INFO SERVICE AND SUPPORT & PHONE RESULT Performing Organization Address [facility]/ZIP Co de Phone Number [facility] [address] [place] [address] * (ABNORMAL) BASIC METABOLIC PANEL (BMP) (11/15/2022 12:42 EDT) Sodium 135(L) 136 - 145 mmol/L 11/15/2022 13:[address] [facility] Potassium 4.7 3.5 - 5.0 mmol/L 11/15/2022 13:[address] [facility] Comment:Slight hemolysis dereck ntified, interpret with caution as hemolysis will elevate potassium result. Chloride 105 96 - 110 mmol/L 11/15/2022 13:[address] [facility] CO2 Total 19(L) 22 - 32 mmol/L 11/15/2022 13:[address] [facility] Anion Gap 11 5 - 14 mmol/L 11/15/2022 13:55 [facility] Glucose 70 70 - 100 mg/dl 11/15/2022 13:55 [facility] Calcium 7.7(L) 8.5 - 10.5 mg/dL 11/15/2022 13:55 [facility] Comment:Sample retested, res ult confirmed BUN 15 10 - 26 mg/dL 11/15/2022 13:55 [facility] Comment: Slight hemolysis identified, interpret with caution as results may be affected due to hemolysis. Creatinine 0.79 0.52 - 1.04 mg/dL 11/15/2022 13:55 [facility] eGFR 83 >60 mL/min/1.7 3m2 11/15/2022 13:55 [facility] Blood VENOUS BLOOD / Unknown Venipuncture / Unknown 11/15/2022 12:42 EDT 11/15/2022 12:51 EDT James Byrnes MD CHEMISTRY & BLOOD GAS ORDERABLES Performing Organization Address City/State/[facility] Co de Phone Number [facility] [address] [place] [address] * CT ABDOMEN PELVIS W CONTRAST (11/15/2022 [...] No acute fracture or concerning osseous lesions. Pole Truck Driver: No additional findings. Procedure Note Rangel Edwards [...] spine. Noacute fracture or concerning osseous lesions. Pole Truck Driver: No additional findings. IMPRESSION 1. No acute [...] FOR INITIAL SEPSIS EVALUATION (11/15/2022 10:34 EDT) Pathologist [facility] Lactic Acid 0.9 <=2.0 mmol/L 11/15/2022 11:[address] [facility] Blood VENOUS BLOOD / Unknown Venipuncture / Unknown 11/15/2022 10:34 EDT 11/15/2022 10:42 EDT James Byrnes MD CHEMISTRY & BLOOD GAS ORDERABLES [facility] [address] [place] [address] * (ABNORMAL) COMPLETE BLOOD COUNT AND DIFFERENTIAL (11/15/2022 9:44 EDT) WBC 6.10 4.00 - 12.40 K/cmm 11/15/2022 10:[address] [facility] RBC 3.68(L) 3.86 - 5.04 M/cmm 11/15/2022 10:[address] [facility] Hemoglobin 11.7 11.6 - 15.2 g/dL 11/15/2022 10:22 [facility] HCT 32.5(L) 34.9 - 44.4 % 11/15/2022 10:[address] [facility] MCV 88 81 - 98 fL 11/15/2022 10:22 [facility] MCH 31.8 26.7 - 33.3 pg 11/15/2022 10:22 [facility] MCHC 36.0(H) 32.1 - 35.9 g/dL 11/15/2022 10:22 [facility] RDW-CV 13.2 <14.7 % 11/15/2022 10:22 [facility] RDW-SD 42.6 <50.4 fl 11/15/2022 10:22 [facility] PLT 201 141 - 377 K/cmm 11/15/2022 10:22 [facility] MPV 10.8 9.5 - 12.7 fL 11/15/2022 10:22 [facility] % Neutrophils 62.0 % 11/15/2022 10:22 [facility] % Lymphocytes 27.9 % 11/15/2022 10:22 [facility] % Monocytes 7.2 % 11/15/2022 10:22 [facility] % Eosinophils 2.0 % 11/15/2022 10:22 [facility] % Basophils 0.7 % 11/15/2022 10:22 [facility] % Immature Grans 0.2 % 11/16/19 10:22 [facility] Absolute Neutrophils 3.79 2.20 - 8.85 K/cmm 11/15/2022 10:22 [facility] Absolute Lymphocytes 1.70 1.09 - 3.30 K/cmm 11/15/2022 10:22 [facility] Absolute Monocytes 0.44 0.10 - 0.80 K/cmm 11/15/2022 10:22 [facility] Absolute Eosinophils 0.12 0.03 - 0.61 K/cmm 11/15/2022 10:22 [facility] ABS Basophils 0.04 0.01 - 0.11 K/cmm 11/15/2022 10:22 [facility] Absolute Immature Grans 0.01 0.00 - 0.06 K/cmm 11/15/2022 10:[address] [facility] Type of Differential: Auto 11/15/2022 10:[address] [facility] Blood VENOUS BLOOD / Unknown Venipuncture / Unknown 11/15/2022 9:44 EDT 11/15/2022 9:52 EDT James Byrnes MD PACKAGES & DNA NM OBE ORDERABLES Performing Organization Address [facility] Co de Phone Number [facility] [address] [place] [address] * LIPASE (11/15/2022 9:44 EDT) Pathologist [facility] Lipase 22 <251 U/L 11/15/2022 10:[address] [facility] Blood VENOUS BLOOD / Unknown Venipuncture / Unknown 11/15/2022 9:44 EDT 11/15/2022 9:52 EDT James Byrnes MD CHEMISTRY & BLOOD GAS ORDERABLES Performing Organization Address [facility] de Phone Number [facility] [address] [place] [address] * (ABNORMAL) COMPREHENSIVE METABOLIC PANEL (CMP) (11/15/2022 9:44 EDT) Sodium 133(L) 136 - 145 mmol/L 11/15/2022 10:[address] [facility] Potassium 5.6(H) 3.5 - 5.0 mmol/L 11/15/2022 10:[address] [facility] Chloride 100 96 - 110 mmol/L 11/15/2022 10:32 [facility] CO2 Total 22 22 - 32 mmol/L 11/15/2022 10:[address] [facility] Glucose 100 70 - 100 mg/dl 11/15/2022 10:[address] [facility] BUN 18 10 - 26 mg/dL 11/15/2022 10:32 [facility] Creatinine 1.00 0.52 - 1.04 mg/dL 11/15/2022 10:32 [facility] eGFR 63 >60 mL/min/1.7 3m2 11/15/2022 10:32 [facility] Total Protein 7.3 6.3 - 8.2 g/dL 11/15/2022 10:32 [facility] Albumin 4.4 3.4 - 4.9 g/dL 11/15/2022 10:32 [facility] Alkaline Phosphatase 67 38 - 126 U/L 11/15/2022 10:32 [facility] AST 40 15 - 46 U/L 11/15/2022 10:32 [facility] ALT 30 <35 U/L 11/15/2022 10:32 [facility] Bilirubin, Total 0.6 <1.4 mg/dL 11/16/19 10:32 [facility] Calcium 9.6 8.5 - 10.5 mg/dL 11/15/2022 10:32 [facility] Albumin/Globulin Ratio 1.5 1.0 - 2.5 11/15/2022 10:32 [facility] Anion Gap 11 5 - 14 mmol/L 11/15/2022 10:32 [facility] Blood VENOUS BLOOD / Unknown Venipuncture / Unknown 11/15/2022 9:44 EDT 11/15/2022 9:52 EDT James Byrnes MD CHEMISTRY & BLOOD GAS ORDERABLES [facility] [address] [place] [address] * HOLD BLUE TOP (11/15/2022 9:44 EDT) Hold Hold 11/15/2022 11:01 [facility] Blood VENOUS BLOOD / Unknown Venipuncture / Unknown 11/15/2022 9:44 EDT 11/15/2022 9:52 EDT James Byrnes MD LAB INFO SERVICE AND SUPPORT & PHONE RESULT [facility] [address] [place] [address] * HOLD GREEN TOP (11/15/2022 9:44 EDT) Hold Hold 11/15/2022 11:[address] [facility] Blood VENOUS BLOOD / Unknown Venipuncture / Unknown 11/15/2022 9:44 EDT 11/15/2022 9:52 EDT James Byrnes MD LAB INFO SERVICE AND SUPPORT & PHONE RESULT Performing Organization Address City/[facility]/ZIP Co de Phone Number [facility] [address] [place] [address] * HOLD LAVENDER TOP (11/15/2022 9:44 EDT) Hold Hold 11/15/2022 11:[address] [facility] Blood VENOUS BLOOD / Unknown Venipuncture / Unknown 11/15/2022 9:44 EDT 11/15/2022 9:52 EDT James Byrnes MD LAB INFO SERVICE AND SUPPORT & PHONE RESULT [facility] [address] [place] [address] * HOLD [facility] (11/15/2022 9:44 EDT) Hold Hold 11/15/2022 11:[address] [facility] Blood VENOUS BLOOD / Unknown Venipuncture / Unknown 11/15/2022 9:44 EDT 11/15/2022 9:52 EDT James Byrnes MD LAB INFO SERVICE AND SUPPORT & PHONE RESULT [facility] [address] [place] [id number] documented in this encounter Visit Diagnoses Diagnosis [...] STAT 1145 (Given - Provid er: Dorothy Benoit RN) sodium chloride 0.9 % BOLUS 1,000 mL (COMPLETED) 1,000 mL, intravenous, NOW X1, 1 dose, On Sun11/15/22 at 1045, STAT 1038 (New Bag - Prov ider: Annita Cam RN)[id number] (IV Stopped - Provider: Dorothy Benoit RN) documented in this encounter Orders Medications Ordered That Atif ht Not Have Been Administered Count Last Ordered Date First Ordered Date lactated ringers BOLUS 1,000 mL 1 3 documented in this encounter Care Teams Boat Carpenter Relationship Specialty Start Date End Date Alina Santacruz MD [address] [place] [id number] PCP - General 08/17/21 documented as of this encounter
--- OUTSIDE RECORDS SUMMARY | 2024-01-28 18:25 | XMS_ITS | Encounter Summary ---
Author Organization [facility] Address [address] [place] [address] Care Team Providers Care Grades 7 8 Tutor Name Role Phone Alina Santacruz MD Primary Care Provider [phone] Encounter Details Date Type Department Care Team (Latest Contact Info) Description 01/01/2023 Transcribe Orders [facility] CLINICAL SUPPORT Alina Olivares MD [address] [id number] Rectal bleeding (Primary Dx); Hyperkalemia; [...] (Late st Contact Info) Description 05/14/2024 15:10 [facility] Radiology [place] - Main [place] [address] [place], [place] [address] documented as of this encounter Results * (ABNORMAL) COMPLETE BLOOD COUNT (01/18/2023 9:17 EDT) WBC 5.71 4.00 - 12.40 K/cmm 01/18/2023 9:53 EDT [facility] RBC 3.72(L) 3.86 - 5.04 M/cmm 01/18/2023 9:53 [facility] Hemoglobin 11.7 11.6 - 15.2 g/dL 01/18/2023 9:53 [facility] HCT 33.7(L) 34.9 - 44.4 % 01/18/2023 9:53 [facility] MCV 91 81 - 98 fL 01/18/2023 9:53 [facility] MCH 31.5 26.7 - 33.3 pg 01/18/2023 9:53 [facility] MCHC 34.7 32.1 - 35.9 g/dL 01/18/2023 9:53 [facility] RDW-CV 13.6 <14.7 % 01/18/2023 9:53 [facility] RDW-SD 45.1 <50.4 fl 01/18/2023 9:53 [facility] PLT 251 141 - 377 K/cmm 01/18/2023 9:53 [facility] MPV 10.0 9.5 - 12.7 fL 01/18/2023 9:53 [facility] Blood VENOUS BLOOD / Unknown Venipuncture / Unknown 01/18/2023 9:17 EDT 01/18/2023 9:39 EDT Alina Santacruz MD HEMATOLOGY & PF4 ORD ERABLES [facility] [address] [place] [address] * (ABNORMAL) BASIC METABOLIC PANEL (BMP) (01/18/2023 9:17 EDT) Pathologist [facility] [place] Sodium 136 136 - 145 mmol/L 01/18/2023 10:13 [facility] Potassium 4.7 3.5 - 5.0 mmol/L 01/18/2023 10:13 [facility] Chloride 99 96 - 110 mmol/L 01/18/2023 10:13 [facility] CO2 Total 25 22 - 32 mmol/L 01/18/2023 10:13 [facility] Anion Gap 12 5 - 14 mmol/L 01/18/2023 10:13 [facility] Glucose 124(H) 70 - 99 mg/dl 01/18/2023 10:13 [facility] Calcium 9.3 8.5 - 10.5 mg/dL 01/18/2023 10:13 [facility] BUN 16 10 - 26 mg/dL 01/18/2023 10:13 [facility] Creatinine 0.90 0.52 - 1.04 mg/dL 01/18/2023 10:13 [facility] eGFR 71 >60 mL/min/1.73 m2 01/18/2023 10:13 [facility] Blood VENOUS BLOOD / Unknown Venipuncture / Unknown 01/18/2023 9:17 EDT 01/18/2023 9:39 EDT Alina Santacruz MD CHEMISTRY & BLOOD GA S ORDERABLES Performing Organization Address City/[facility] Co de Phone Number [facility] [address] [place] [address] * FERRITIN (01/18/2023 9:17 EDT) Ferritin 178 10 - 291 ng/mL 01/18/2023 10:59 EDT [facility] Blood VENOUS BLOOD / Unknown Venipuncture / Unknown 01/18/2023 9:17 EDT 01/18/2023 9:39 EDT Alina Santacruz MD CHEMISTRY & BLOOD GA S ORDERABLES Performing Organization Address [facility] Co de Phone Number [facility] [address] [place] [address] documented in this encounter Visit Diagnoses Diagnosis Rectal bleeding- Primary Hemorrhage of rectum and anus Hyperkalemia Hyperpotassemia Hypertension, unspecified type documented in this encounter Care Teams Grades 7 8 Tutor Relationship Specialty Start Date End Date Alina Santacruz MD [address] [place] [phone] PCP - General 08/17/21 documented as of this encounter
--- OUTSIDE RECORDS SUMMARY | 2024-01-28 18:25 | XMS_ITS | Encounter Summary ---
Author Organization [facility] Address [address] [place] [address] Care Team Providers Care Talent Acquisition Sourcer Name Role Phone Alina Santacruz MD Primary Care Provider [phone] Reason for Visit * Reason Comments Dysuria Onset 3 weeks ago, d ysuria. Denies urinary urgency, frequency, hematuria, vaginal discharge/itching. Patient taking AZO for the past 3 weeks, last dose today. Encounter Details Date Type Department Care Team (Latest Contact Info) Description 12/11/2023 14:34 EDT - 12/11/2023 15:34 EDT Hospital Encounter [facility] - [address] [address] Jorge Layton MD [address] [place] [address] [phone] Dysuria (Primary Dx) Discharge Disposition: Home or [...] be sent through Care Everywhere. * Dysuria (Mosotho) documented in this encounter Medications at Time [...] 1 Capsule by mouth 2 times daily. tiotropium-olodatero L (STIOLTO RESPIMAT) 2.5-2.5 mcg/actuation inhaler Inhale as directed daily. albuterol 90 mcg/actuation inhaler Inhale 180 mcg as directed every 4 hours. 01/07/2024 amitriptyline (ELAVIL) 25 mg tablet Take 25 mg by mouth daily. 01/07/2024 candesartan (ATACAND) 4 mg tablet Take 4 mg by mouth daily. 01/07/2024 clobetasoL (TEMOVATE) 0.05 % cream Apply topically 2 times daily. 01/07/2024 fosinopriL-hydrochlo rothiazide (MONOPRIL-HCT) 10-12.5 mg per tablet Take 1 Tablet by mouth daily. 01/07/2024 nitrofurantoin, macrocrystal-monohyd rate, (MACROBID) 100 mg capsule Take 1 Capsule by mouth every 12 hours for 5 days. 10 Capsule 12/11/2023 12/16/2023 promethazine (PHENERGAN) 25 mg tablet Take 25 [...] Means Destination Comment s Home or Self Jail documented in this encounter ED Notes * [...] Negative Negative Ketones, UA Negative Negative Specific [place], Urine 1.015 1.001 - 1.030 Blood, UA [...] Diagnosis Date COPD (chronic obstructive pulmonary disease) ([facility]) Hypercholesteremia Hypertension Leaky heart valve Sciatica [...] of further medications. Upon departure from [facility], the patient's pain was 0 on a zero to ten scale. Any further pain treatment will be at the discretion of the provider following up with the patient based on their clinical assessment . Condition at departure from the [facility] : Stable MDM 12/11/2023 15:26 documented in this encounter Plan of Treatment Upcoming Encounters Date Type Department Care Team (Late st Contact Info) Description 05/14/2024 15:10 [facility] Radiology CT - [address] [address] documented as of this encounter Procedures Procedure [...] 0 - 2 Cells/HPF 12/11/2023 15:27 EDT [facility] Urine WBC Count, Auto 0 - 3 0 - 3 Cells/HPF 12/11/2023 15:27 EDT [facility] Urine Squamous Count, Auto None Seen None Seen Cells/HPF 12/11/2023 15:27 EDT [facility] Urine Hyaline Cast Count, Auto <=10 <=10 Casts/LPF 12/11/2023 15:27 EDT [facility] Urine Bacteria Count, Auto None Seen None Seen Bacteria/H PF 12/11/2023 15:27 EDT [facility] Urine URINE SPECIMEN OBTAINED BY CLEAN CATCH PROCEDURE / Unknown Urine Collect / Unknown 12/11/2023 14:43 EDT 12/11/2023 14:43 EDT Narrative [facility] - 12/11/2023 15:27 EDT NOTE: Reflex to Urine Culture test is not indicated based on Urine Sediment Analysis results. Urine Sediment Analysis results are unreliable on urines that are unrefrigerated for >2 hrs or refrigerated >8 hrs. Annita Lubin MD URINALYSIS ORDERABLE S Performing Organization Address [facility]/ZIP Co de Phone Number [facility] [address] [place] [phone] * POCT CSN BARCODE URINE DIPSTICK (12/11/2023 14:42 EDT) Urine URINE SPECIMEN OBTAINED BY CLEAN CATCH PROCEDURE / Unknown Urine Collect / Unknown 12/11/2023 14:42 EDT 12/11/2023 14:42 EDT Jorge Layton MD LAB INFO SERVICE AND SUPPORT & PHONE RESULT Performing Organization Address [facility]/ZIP Co de Phone Number [facility] [address] [place] [phone] * (ABNORMAL) POCT URINE DIPSTICK, CLINITEK (12/11/2023 14:39 EDT) Color, UA Yellow Yellow 12/11/2023 14:41 [facility] Clarity, UA Clear Clear 12/11/2023 14:41 [facility] Glucose, UA Negative Negative mg/dL 12/11/2023 14:41 [facility] Bilirubin, UA Negative Negative 12/11/2023 14:41 [facility] Ketones, UA Negative Negative 12/11/2023 14:41 [facility] Specific [place], Urine 1.015 1.001 - 1.030 12/11/2023 14:41 [facility] Blood, UA Trace(A) Negative 12/11/2023 14:41 [facility] pH, UA 7.0 <8.5 12/11/2023 14:41 [facility] Protein, UA Negative Negative mg/dL 12/11/2023 14:41 [facility] Urobilinogen, UA 1.0 0.2 - 1.0 mg/dL 12/11/2023 14:41 [facility] Nitrite, UA Negative Negative 12/11/2023 14:41 [facility] Leuk Esterase Negative Negative 12/11/2023 14:41 [facility] HN LAB COMMENT (CLINITEK, UR) Test performed at Urgent Care 12/11/2023 14:41 [facility] Urine URINE SPECIMEN OBTAINED BY CLEAN CATCH PROCEDURE / Unknown 12/11/2023 14:39 EDT 12/11/2023 14:41 EDT Jorge Layton MD POINT OF CARE TEST O RDERABLES [facility] [address] [place] [address] documented in this encounter Visit Diagnoses Diagnosis Dysuria- Primary documented in this encounter Care Teams Talent Acquisition Sourcer Relationship Specialty Start Date End Date Alina Santacruz MD [address] [place] [phone] PCP - General 08/17/21 documented as of this encounter
--- OUTSIDE RECORDS SUMMARY | 2024-01-28 18:25 | XMS_ITS | Encounter Summary ---
Author Organization [facility] Address [address] [place] [address] Care Team Providers Care Paper Machine Back Tender Name Role Phone Alina Santacruz MD Primary Care Provider [phone] Reason for Visit * Reason Onset Date Comments Appointment Related 06/05/2023 Encounter Details Date Type Department Care Team ([facility] st Contact Info) Description 06/05/2023 Telephone [facility] Neurophysiology - Main [address] [address] Jass Lubin MD [address] [place] [address] [address] [place] [phone] Appointment Related Social History Tobacco Use Types [...] Telephone Encounter - Ronnie Alvaradoson - 06/05/2023 9469 EST No calls in to request EMG w consult note from 05/23. Faxed to [phone]. documented in this encounter Plan of Treatment Upcoming Encounters Date Type Department Care Team (Late st Contact Info) Description 05/14/2024 15:10 EST Appointment [facility] Radiology CT - [address] [address] documented as of this encounter Visit Diagnoses Not on filedocumented in this encounter Care Teams Paper Machine Back Tender Relationship Specialty Start Date End Date Alina Santacruz MD [address] [place] [phone] PCP - General 08/17/21 documented as of this encounter
--- OUTSIDE RECORDS SUMMARY | 2024-01-28 18:25 | XMS_ITS | Encounter Summary ---
Author Organization [facility] Address [address] [place] [address] Care Team Providers Care Forging Machine Hand Name Role Phone Alina Santacruz MD Primary Care Provider [phone] Encounter Details Date Type Department Care Team ([facility] Contact Info) Description 12/15/2022 12:00 EDT Phlebotomy Only [facility] ED Center 2 Phlebotomy [address] [place], [place] [address] Research Spec, Acc Phlebotomy Hyperkalemia Social History Tobacco Use [...] Team ([facility] Contact Info) Description 05/14/2024 15:10 [facility] Radiology CT - Main [place] [address] [place] [address] documented as of this encounter Procedures Procedure Name Priority Date/Time Associated Diagnosis Comments BASIC METABOLIC PANEL (BMP) Routine 12/15/2022 12:06 EDT Hyperkalemia documented in this encounter Results * (ABNORMAL) BASIC METABOLIC PANEL (BMP) (12/15/2022 12:06 EDT) Sodium 133(L) 136 - 145 mmol/L 12/15/2022 12:58 EDT [facility] Potassium 5.9(H) 3.5 - 5.0 mmol/L 12/15/2022 12:58 EDT [facility] Chloride 96 96 - 110 mmol/L 12/15/2022 12:58 T [facility] CO2 Total 27 22 - 32 mmol/L 12/15/2022 12:58 T [facility] Anion Gap 10 5 - 14 mmol/L 12/15/2022 12:58 [facility] Glucose 89 70 - 99 mg/dl 12/15/2022 12:58 [facility] Calcium 9.7 8.5 - 10.5 mg/dL 12/15/2022 12:58 [facility] BUN 19 10 - 26 mg/dL 12/15/2022 12:58 [facility] Creatinine 1.05(H) 0.52 - 1.04 mg/dL 12/15/2022 12:58 [facility] eGFR 59(L) >60 mL/min/1.73 m2 12/15/2022 12:58 T [facility] Blood VENOUS BLOOD / Unknown Venipuncture / Unknown 12/15/2022 12:06 EDT 12/15/2022 12:25 EDT Alina Santacruz MD CHEMISTRY & BLOOD GA S ORDERABLES [facility] [address] [place] [address] documented in this encounter Visit Diagnoses Diagnosis Hyperkalemia Hyperpotassemia documented in this encounter Care Teams Forging Machine Hand Relationship Specialty Start Date End Date Alina Santacruz MD [address] [place] [phone] PCP - General 08/17/21 documented as of this encounter
--- OUTSIDE RECORDS SUMMARY | 2024-01-28 18:25 | XMS_ITS | Encounter Summary ---
Author Organization [facility] Address [address] [place] [address] Care Team Providers Care Internal Communications Specialist Name Role Phone Alina Santacruz MD Primary Care Provider [phone] Reason for Referral * Radiology Services (Routine/Next Available) - Authorization Not Required Specialty Diagnoses / Procedures Referred By Contac t Referred To Contact Diagnoses Personal history of nicotine dependence Procedures CT CHEST LOW DOSE LUNG SCREENING Alina Santacruz MD [address] [place] [phone] [facility] Referral ID Status Reason Start Date Expiration Date Visits Requested Visits Authorized [id number] Authorization Not Required 08/09/2022 1 1 Reason for Visit * Radiology Services (Routine/Next Available) - Authorization Not Required Specialty Diagnoses / Procedures Referred By Contac t Referred To Contact Diagnoses Personal history of nicotine dependence Procedures CT CHEST LOW DOSE LUNG SCREENING Alina Santacruz MD [address] [place] [phone] [facility] Referral ID Status Reason Start Date Expiration Date Visits Requested Visits Authorized [id number] Authorization Not Required 08/09/2022 1 1 Encounter Details Date Type Department Care Team (Latest Contact Info) Description 12/15/2022 11:34 EDT - 12/15/2022 23:59 EDT [facility] Radiology CT Outpatient - [facility] [address] [place] [address] Personal history of nicotine dependence Discharge Disposition: [...] (Late st Contact Info) Description 05/14/2024 15:10 [facility] Radiology CT - [address] [address] documented as of this encounter Procedures Procedure [...] Screening Reporting and Data System (ACR LungRADS [id number]) as below: Category 0: Incomplete (part or [...] above interpretation and agree with the findings. [id number] Narrative 12/15/2022 15:[address] CHEST LOW [...] Lung Screening Reporting and Data System (ACRLungRADS [id number]) as below: Category 0: Incomplete (part or [...] the above interpretation andagree with the findings. [id number] Alina Santacruz MD IMG CT ORDERABLES documented in this encounter Visit Diagnoses Diagnosis Personal history of nicotine dependence Personal history of tobacco use, presenting hazards to health documented in this encounter Care Teams Internal Communications Specialist Relationship Specialty Start Date End Date Alina Santacruz MD [address] [place] [phone] PCP - General 08/17/21 documented as of this encounter
--- OUTSIDE RECORDS SUMMARY | 2024-01-28 18:25 | XMS_ITS | Encounter Summary ---
Author Organization [facility] Address [address] [place] [address] Care Team Providers Care Professional Services Manager Name Role Phone Alina Santacruz MD Primary Care Provider [phone] Encounter Details Date Type Department Care Team (Late Contact Info) Description 10/15/2023 Orders Only [facility] Shannan Jesus MA Preop examination Social History Tobacco Use [...] Team (Late Contact Info) Description 05/14/2024 15:10 [facility] Radiology CT - Main [place] [address] [place], [place] [phone] documented as of this encounter Procedures Procedure Name Priority Date/Time Associated Diagnosis Comments ECG REPORT - SCANNED 10/16/2023 7:03 EDT EKG 12-LEAD Routine 10/15/2023 15:17 EDT Preop examination documented in this encounter Results * ECG REPORT - SCANNED (10/16/2023 7:03 EDT) 10/16/2023 7:03 EDT Scan 2 Automobile Dealer PROCEDURE/MINOR OMID GICAL ORDERABLES * EKG 12-LEAD (10/15/2023 15:17 EDT) 10/15/2023 15:[address] [facility] EKG - 10/16/2023 6:56 EDT ? [facility] ? Test Date: ?2023-10-15 Pat Name: ? DANIELLE GILMAN ? Department: ? Room: ? Gender: ? Female ? Solvent Recoverer: ?? [id number] : ?1955 ? Requested By: LAN ADLER Order Number: [id number] ? Allie DUQUE: ?? MARGARITO WEBER MD ? Measurements Intervals ?[place] ? Rate: ? 60 ? P: ?29 OK: ? 201 ?QRS: ?11 QRSD: ? 106 [...] Note Margarito Weber MD - 10/16/2023 [facility] Test Date: 2023-10-15 Pat Name: DANIELLE GILMAN Department: Room: Gender: Female Solvent Recoverer: [id number] : 1955 Requested By: LAN ADLER Order Number: [id number] Reading MD: MARGARITO WEBER MD Measurements Intervals [place] Rate: 60 P: 29 OK: 201 QRS: 11 QRSD: 106 T: 49 QT: 408 QTc: 409 Interpretive Statements SINUS RHYTHM Compared to ECG 06/11/2023 14:20:49 First degree AV block no longer present I reviewed the tracing and have either agreed or edited the findings inthis report. Electronically Signed On 10-16-2023 06:56:16 EDT by MARGARITO DAVIS. Alina Santacruz MD CARDIAC ECG ORDERABL ES [facility] EKG documented in this encounter Visit Diagnoses Diagnosis Preop examination Preoperative examination, unspecified documented in this encounter Care Teams Professional Services Manager Relationship Specialty Start Date End Date Alina Santacruz MD [address] [place] [phone] PCP - General 08/17/21 documented as of this encounter
--- OUTSIDE RECORDS SUMMARY | 2024-01-28 18:25 | XMS_ITS | Encounter Summary ---
Author Organization [facility] Address [address] [place] [address] Care Team Providers Care Abrasive Grader Helper Name Role Phone Alina Santacruz MD Primary Care Provider [phone] Encounter Details Date Type Department Care Team (Latest Contact Info) Description 07/18/2023 8:00 EST - 07/18/2023 23:59 EST Hospital Encounter [facility] Xray [address] [place] [address] Discharge Disposition: Home or Self [...] Upcoming Encounters Date Type Department Care Team (Jonathan st Contact Info) Description 05/14/2024 15:10 [facility] Radiology CT - [address] [phone] documented as of this encounter Procedures Procedure [...] on filedocumented in this encounter Care Teams Abrasive Grader Helper Relationship Specialty Start Date End Date Alina Santacruz MD [address] [place] [phone] PCP - General 08/17/21 documented as of this encounter
--- OUTSIDE RECORDS SUMMARY | 2024-01-28 18:25 | XMS_ITS | Encounter Summary ---
Author Organization [facility] Address [address] [place] [address] Care Team Providers Care Repack Room Worker Name Role Phone Alina Santacruz MD Primary Care Provider [phone] Encounter Details Date Type Department Care Team (Latest Contact Info) Description 11/24/2022 Transcribe Orders [facility] Alina Olivares MD [address] [phone] Hyperkalemia (Primary Dx) Social History [...] (Late st Contact Info) Description 05/14/2024 15:10 [facility] Radiology CT - Main [place] [address] [place] [address] documented as of this encounter Results * (ABNORMAL) BASIC METABOLIC PANEL (BMP) (12/15/2022 12:06 EDT) Sodium 133(L) 136 - 145 mmol/L 12/15/2022 12:58 EDT [facility] Potassium 5.9(H) 3.5 - 5.0 mmol/L 12/15/2022 12:58 EDT [facility] Chloride 96 96 - 110 mmol/L 12/15/2022 12:58 EDT [facility] CO2 Total 27 22 - 32 mmol/L 12/15/2022 12:58 T [facility] Anion Gap 10 5 - 14 mmol/L 12/15/2022 12:58 EDT [facility] Glucose 89 70 - 99 mg/dl 12/15/2022 12:58 EDT [facility] Calcium 9.7 8.5 - 10.5 mg/dL 12/15/2022 12:58 T [facility] BUN 19 10 - 26 mg/dL 12/15/2022 12:58 [facility] Creatinine 1.05(H) 0.52 - 1.04 mg/dL 12/15/2022 12:58 T [facility] eGFR 59(L) >60 mL/min/1.73 m2 12/15/2022 12:58 T [facility] Blood VENOUS BLOOD / Unknown Venipuncture / Unknown 12/15/2022 12:06 EDT 12/15/2022 12:25 EDT Alina Santacruz MD CHEMISTRY & BLOOD GA S ORDERABLES [facility] [address] [place] [address] documented in this encounter Visit Diagnoses Diagnosis Hyperkalemia- Primary Hyperpotassemia documented in this encounter Care Teams Repack Room Worker Relationship Specialty Start Date End Date Alina Santacruz MD [address] [place] [phone] PCP - General 08/17/21 documented as of this encounter
--- OUTSIDE RECORDS SUMMARY | 2024-01-28 18:25 | XMS_ITS | Encounter Summary ---
Author Organization [facility] Address [address] [place] [address] Care Team Providers Care Animal Damage Control Agent Name Role Phone Alina Santacruz MD Primary Care Provider [phone] Reason for Visit * Consult (Routine) - Authorization Not Required Specialty Diagnoses / Procedures Referred By Contaudi casey Referred To Contact Hematology and Oncology Diagnoses Free monoclonal light chain Alina Santacruz MD [address] [phone] [facility] Hem/Onc [address] [place] [address] Referral ID Status Reason Start Date Expiration Date Visits Requested Visits Authorized [id number] Authorization Not Required 1 1 Encounter Details Date Type Department Care Team (Latest Contact Info) Description 07/12/2023 13:15 EST Phlebotomy Only [facility] Hematology & Oncology - Main [place] [address] [place] [address] Blood Doctor, [facility] Hem Onc Elevated serum immunoglobulin free light [...] - 07/12/2023 1315 EST Venipuncture performed for Gergi Per orders of Erich Number of attempts 1 R AC I was supervised by Leisa who was present and immediately available in the office suite. LINNETTE AMANDA MA 07/12/2023 13:46 documented in this encounter Plan of Treatment Upcoming Encounters Date Type Department Care Team (Late st Contact Info) Description 05/14/2024 15:10 EST [facility] [place] [address] documented as of this encounter Procedures Procedure [...] 138 136 - 145 mmol/L 07/12/2023 14:24 EST [facility] Potassium 4.9 3.5 - 5.0 mmol/L 07/12/2023 14:24 EST [facility] Chloride 103 96 - 110 mmol/L 07/12/2023 14:24 EST [facility] CO2 Total 27 22 - 32 mmol/L 07/12/2023 14:24 [facility] Glucose 89 70 - 99 mg/dl 07/12/2023 14:24 [facility] BUN 11 10 - 26 mg/dL 07/12/2023 14:24 [facility] Creatinine 0.86 0.52 - 1.04 mg/dL 07/12/2023 14:24 [facility] eGFR 74 >60 mL/min/1.7 3m2 07/12/2023 14:24 [facility] Total Protein 7.2 6.3 - 8.2 g/dL 07/12/2023 14:24 [facility] Albumin 4.2 3.4 - 4.9 g/dL 07/12/2023 14:24 [facility] Alkaline Phosphatase 72 38 - 126 U/L 07/12/2023 14:24 [facility] AST 30 15 - 46 U/L 07/12/2023 14:24 [facility] ALT 17 <35 U/L 07/12/2023 14:24 [facility] Bilirubin, Total 0.5 <1.4 mg/dL 07/12/19 14:24 [facility] Calcium 9.1 8.5 - 10.5 mg/dL 07/12/2023 14:24 [facility] Magnesium 1.9 1.7 - 2.8 mg/dL 07/12/2023 14:24 [facility] Albumin/Globulin Ratio 1.4 1.0 - 2.5 07/12/2023 14:24 [facility] Anion Gap 8 5 - 14 mmol/L 07/12/2023 14:24 [facility] Blood VENOUS BLOOD / Unknown Venipuncture / Unknown 07/12/2023 13:49 EST 07/12/2023 13:52 EST Maria Alejandra Jung MD CHEMISTRY & BLOOD GA S ORDERABLES [facility] [address] [place] [address] * (ABNORMAL) COMPLETE BLOOD COUNT AND DIFFERENTIAL (07/12/2023 13:49 [facility]) WBC 7.96 4.00 - 12.40 K/cmm 07/12/2023 14:09 [facility] RBC 3.97 3.86 - 5.04 M/cmm 07/12/2023 14:09 [facility] Hemoglobin 12.8 11.6 - 15.2 g/dL 07/12/2023 14:09 [facility] HCT 35.6 34.9 - 44.4 % 07/12/2023 14:09 [facility] MCV 90 81 - 98 fL 07/12/2023 14:09 [facility] MCH 32.2 26.7 - 33.3 pg 07/12/2023 14:09 [facility] MCHC 36.0(H) 32.1 - 35.9 g/dL 07/12/2023 14:09 [facility] RDW-CV 13.6 <14.7 % 07/12/2023 14:09 [facility] RDW-SD 45.0 <50.4 fl 07/12/2023 14:09 [facility] PLT 245 141 - 377 K/cmm 07/12/2023 14:09 [facility] MPV 10.8 9.5 - 12.7 fL 07/12/2023 14:09 [facility] % Neutrophils 56.1 % 07/12/2023 14:09 [facility] % Lymphocytes 32.2 % 07/12/2023 14:09 [facility] % Monocytes 9.9 % 07/12/2023 14:09 [facility] % Eosinophils 1.0 % 07/12/2023 14:09 [facility] % Basophils 0.4 % 07/12/2023 14:09 [facility] % Immature Grans 0.4 % 07/12/19 14:09 [facility] Absolute Neutrophils 4.47 2.20 - 8.85 K/cmm 07/12/2023 14:09 [facility] Absolute Lymphocytes 2.56 1.09 - 3.30 K/cmm 07/12/2023 14:09 [facility] Absolute Monocytes 0.79 0.10 - 0.80 K/cmm 07/12/2023 14:09 [facility] Absolute Eosinophils 0.08 0.03 - 0.61 K/cm 07/12/2023 14:09 [facility] ABS Basophils 0.03 0.01 - 0.11 K/cm 07/12/2023 14:09 [facility] Absolute Immature Grans 0.03 0.00 - 0.06 K/cm 07/12/2023 14:09 [facility] Type of Differential: Auto 07/12/2023 14:09 [facility] Blood VENOUS BLOOD / Unknown Venipuncture / Unknown 07/12/2023 13:49 EST 07/12/2023 13:52 EST Maria Alejandra Jung MD PACKAGES & DNA PROBE ORDERABLES [facility] [address] [place] [address] documented in this encounter Visit Diagnoses Diagnosis 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
--- OUTSIDE RECORDS SUMMARY | 2024-01-28 18:25 | XMS_ITS | Encounter Summary ---
Author Organization [facility] Address [address] [place] [address] Care Team Providers Care Migratory Farm Hand Name Role Phone Alina Santacruz MD Primary Care Provider [phone] Reason for Visit * Reason Comments Back Pain Left side * Prior Authorization (Routine) - Authorization Not Required Specialty Diagnoses / Procedures Referred By Contact Referred To Contact Anesthesiology / Pain Medicine Diagnoses LESI Procedures TN NJX DX/THER SBST INTRLMNR LMBR/SAC W/IMG GDN PAIN CLINIC PROCEDURE [facility] [address] [facility] [place] [address] Ana María Alcocer MD [address] [place] [phone] Referral ID Status Reason Start Date Expiration Date Visits Requested Visits Authorized [id number] Authorization Not Required 1 1 Encounter Details Date Type Department Care Team (Latest Contact Info) Description 07/18/2023 15:15 EST Office Visit [facility] Interventional Pain [address] [place] [address] Ana María Alcocer MD [address] [place] [phone] Radicular pain of left lower extremity [...] 15:15 EST [facility] [address] [address] Patient Instructions You have had [...] Patient presents with Back Pain Left side Set Up Worker: Ana María Alcocer MD Slip Dumper: None Procedure: Lumbar epidural steroid injections at [...] Suyapa Duron MA - 07/18/2023 1515 EST [place] Rooming Note Does patient have a Corrections Caseworker? yes Is patient NPO? (Solids since midnight [...] Contact Info) Description 05/14/2024 15:10 EST Appointment [facility] Radiology CT - [address] [address] documented as of this encounter Visit Diagnoses [...] mL documented in this encounter Care Teams Migratory Farm Hand Relationship Specialty Start Date End Date Alina Santacruz MD [address] [place] [phone] PCP - General 08/17/21 documented as of this encounter
--- OUTSIDE RECORDS SUMMARY | 2024-01-28 18:25 | XMS_ITS | Encounter Summary ---
Author Organization [facility] Address [address] [place] [address] Care Team Providers Care Marine Habitat Resource Specialist Name Role Phone Alina Santacruz MD Primary Care Provider [phone] Reason for Visit * Reason Onset Date Comments Social Work 07/17/2023 Distress Assessm ent Encounter Details Date Type Department Care Team ([facility] Contact Info) Description 07/17/2023 Telephone [facility] Cancer Center Hematology & [place] [address] Matilda Witt Social Work (Distress Assessment) Social [...] Contact Info) Description 05/14/2024 15:10 EST Appointment [place] Radiology CT - [address] [address] documented as of this encounter Visit Diagnoses Not on filedocumented in this encounter Care Teams Marine Habitat Resource Specialist Relationship Specialty Start Date End Date Alina Santacruz MD [address] [place] [phone] PCP - General 08/17/21 documented as of this encounter
--- OUTSIDE RECORDS SUMMARY | 2024-01-28 18:25 | XMS_ITS | Encounter Summary ---
Author Organization [facility] Address [address] [place] [address] Care Team Providers Care Rack Loader Name Role Phone Alina Santacruz MD Primary Care Provider [phone] Reason for Visit * Referral (Routine) - Authorization Not Required Specialty Diagnoses / Procedures Referred By Contac t Referred To Contact Neurology Diagnoses Pain in left foot Sciatica, left side Procedures EMG/NERVE CONDUCTION STUDY Alina Santacruz MD [address] [phone] [facility] Neurophys [address] [place] [address] Referral ID Status Reason Start Date Expiration Date Visits Requested Visits Authorized [id number] Authorization Not Required 1 1 Encounter Details Date Type Department Care Team (Latest Contact Info) Description 05/23/2023 10:36 EST - 05/23/2023 23:59 [facility] Hospital Encounter [facility] Neurophysiology - [facility] [address] [place] [address] Jass Lubin MD [address] [facility], Level [address] [place] [address] Left leg pain (Primary Dx); [...] mcg as directed every 4 hours. 01/07/20 24 amitriptyline (ELAVIL) 25 mg tablet Take 25 [...] been following up with her PCP in [facility] who is managing her pain medications. She [...] stenosis. 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 Jass Lubin M.D. Wood Flooring Specialist of Neurology ABPN Board Certified, Neurology ABEM Board Certified, EMG documented in this encounter Plan of Treatment Upcoming Encounters Date Type Department Care Team (Late st Contact Info) Description 05/14/2024 15:10 EST Appointment [facility] Radiology CT - [address] [address] documented as of this encounter Visit Diagnoses Diagnosis Left leg pain- Primary Pain in limb Left arm pain Pain in limb documented in this encounter Care Teams Rack Loader Relationship Specialty Start Date End Date Alina Santacruz MD [address] [place] [phone] PCP - General 08/17/21 documented as of this encounter
--- OUTSIDE RECORDS SUMMARY | 2024-01-28 18:25 | XMS_ITS | Encounter Summary ---
Author Organization [facility] Address [address] [place] [address] Care Team Providers Care Water Treatment Plant Engineer Name Role Phone Alina Santacruz MD Primary Care Provider [phone] Reason for Visit * Reason Comments Back Pain Left side * Consult (Routine/Next Available) - Authorization Not Required Specialty Diagnoses / Procedures Referred By Contaudi t Referred To Contact Pain Medicine Diagnoses Chronic bilateral low back pain with left-sided sciatica Ayush Shirley PA-C [address] [facility] [place] [address] [facility] [address] [place] [address] Referral ID Status Reason Start Date Expiration Date Visits Requested Visits Authorized [id number] Authorization Not Required Specialty Services Required 4 1 1 Encounter Details Date Type Department Care Team (Latest Contact Info) Description 07/17/2023 10:15 EST Initial consult [facility] Interventional Pain [address] [place] [address] Leidy Jimenez PA-C [address] [facility] [address] [place] [phone] Radicular pain of left lower [...] EST [facility] Outpatient PAIN Consult Patient Name: Danielle Soto [...] her PCP. Regarding the above medications, the [facility] is a consultation service with regard to medications and as such we do not take over the writing of routine prescriptions for patients. We are happy to make recommendations regarding pain medications for the patient's PCP to consider implementing. Thank you for the consultation, please call with any questions. Leidy Jimenez PA-C Interventional Pain Medicine [facility] 07/17/23 I spent a total of 60 [...] EST [facility] Radiology [facility] - [address] [address] documented as of this encounter Visit Diagnoses Diagnosis Radicular pain of left lower extremity- Primary Thoracic or lumbosacral neuritis or radiculitis, unspecified Chronic bilateral low back pain with left-sided sciatica documented in this encounter Orders Outpatient Referral Count Last Ordered Date Fir st Ordered Date AMB CONS/FOLLOW UP PAIN INTERVENTIONAL 1 documented in this encounter Care Teams Water Treatment Plant Engineer Relationship Specialty Start Date End Date Alina Santacruz MD [address] [place] [phone] PCP - General 08/17/21 documented as of this encounter
--- OUTSIDE RECORDS SUMMARY | 2024-01-28 18:25 | XMS_ITS | Encounter Summary ---
Author Organization [facility] Address [address] [place] [address] Care Team Providers Care Storeroom Clerk Name Role Phone Alina Santacruz MD Primary Care Provider [phone] Encounter Details Date Type Department Care Team (Latest Contact Info) Description 12/31/2023 Transcribe Orders [facility] CL[facility]ICAL SUPPORT Alina Olivares MD [address] [place] [address] [place] [phone] Other specified disorders of bone density [...] (Late st Contact Info) Description 05/14/2024 15:10 [facility] Radiology CT - Main [place] [address] [place] [address] Scheduled Orders Name Type Priority Associated Diagnoses Orde r Schedule COMPREHENSIVE METABOLIC PANEL (CMP) Lab Routine Other specified disorders of bone density and structure, unspecified site Essential (primary) hypertension Expected: 12/31/2023 (Approximate), Expires: 03/30/2024 COMPLETE BLOOD COUNT Lab Routine Other specified disorders of bone density and structure, unspecified site Essential (primary) hypertension Expected: 12/31/2023 (Approximate), Expires: 03/30/2024 documented as of this encounter Results * VITAMIN D (25,OH) (01/07/2024 12:48 EDT) 25OH Vitamin D Tot 32 30 - 100 ng/mL 01/07/2024 16:20 EDT [facility] Comment: Vitamin D 25,OH Interpretive Ranges: Deficiency: ??<10.0 ng/mL Insufficiency: ??10.0 - 30.0 ng/mL Sufficiency: ??30.0 - 100.0 ng/mL Toxicity: ??>100.0 ng/mL Blood VENOUS BLOOD / Unknown Venipuncture / Unknown 01/07/2024 12:48 EDT 01/07/2024 12:51 EDT Alina Santacruz MD CHEMISTRY & BLOOD GA S ORDERABLES [facility] [address] [place] [address] documented in this encounter Visit Diagnoses Diagnosis Other specified disorders of bone density and structure, unspecified site- Primary Essential (primary) hypertension Unspecified essential hypertension documented in this encounter Care Teams Storeroom Clerk Relationship Specialty Start Date End Date Alina Santacruz MD [address] [place] [phone] PCP - General 08/17/21 documented as of this encounter
--- OUTSIDE RECORDS SUMMARY | 2024-01-28 18:25 | XMS_ITS | Encounter Summary ---
Author Organization [facility] Address [address] [place] [address] Care Team Providers Care Supervisor Hospitality House Name Role Phone Alina Santacruz MD Primary Care Provider [phone] Encounter Details Date Type Department Care Team [...] (Late st Contact Info) Description 05/14/2024 15:10 [facility] Rad[facility] - [facility] [address] [place], [place] [phone] documented as of this encounter Visit Diagnoses Not on filedocumented in this encounter Care Teams Supervisor Hospitality House Relationship Specialty Start Date End Date Alina Santacruz MD [address] [place] [phone] PCP - General 08/17/21 documented as of this encounter
--- OUTSIDE RECORDS SUMMARY | 2024-01-28 18:25 | XMS_ITS | Encounter Summary ---
Author Organization [facility] Address [address] [place] [address] Care Team Providers Care Dairy Feed Mixing Operator Name Role Phone Alina Santacruz MD Primary Care Provider [phone] Encounter Details Date Type Department Care Team (Late Contact Info) Description 01/18/2023 9:15 EDT Phlebotomy Only [facility] [address] [place] [address] [phone] Production Crew Supervisor, Acc Phlebotomy Rectal bleeding; Hyperkalemia; Hypertension, unspecified [...] Team (Late Contact Info) Description 05/14/2024 15:10 [facility] Radiology CT - Main [place] [address] [place] [address] documented as of this encounter [...] 5.71 4.00 - 12.40 K/cmm 01/18/2023 9:53 [facility] RBC 3.72(L) 3.86 - 5.04 M/cmm 01/18/2023 9:53 [facility] Hemoglobin 11.7 11.6 - 15.2 g/dL 01/18/2023 9:53 [facility] HCT 33.7(L) 34.9 - 44.4 % 01/18/2023 9:53 [facility] MCV 91 81 - 98 fL 01/18/2023 9:53 [facility] MCH 31.5 26.7 - 33.3 pg 01/18/2023 9:53 [facility] MCHC 34.7 32.1 - 35.9 g/dL 01/18/2023 9:53 [facility] RDW-CV 13.6 <14.7 % 01/18/2023 9:53 [facility] RDW-SD 45.1 <50.4 fl 01/18/2023 9:53 [facility] PLT 251 141 - 377 K/cmm 01/18/2023 9:53 [facility] MPV 10.0 9.5 - 12.7 fL 01/18/2023 9:53 [facility] Blood VENOUS BLOOD / Unknown Venipuncture / Unknown 01/18/2023 9:17 EDT 01/18/2023 9:39 EDT Alina Santacruz MD HEMATOLOGY & PF4 ORD ERABLES Performing Organization Address City/[facility]/ZIP Co de Phone Number [facility] [address] [place] [address] * (ABNORMAL) BASIC METABOLIC PANEL (BMP) (01/18/2023 9:17 EDT) Sodium 136 136 - 145 mmol/L 01/18/2023 10:13 T [facility] Potassium 4.7 3.5 - 5.0 mmol/L 01/18/2023 10:13 T [facility] Chloride 99 96 - 110 mmol/L 01/18/2023 10:13 [facility] CO2 Total 25 22 - 32 mmol/L 01/18/2023 10:13 [facility] Anion Gap 12 5 - 14 mmol/L 01/18/2023 10:13 [facility] Glucose 124(H) 70 - 99 mg/dl 01/18/2023 10:13 [facility] Calcium 9.3 8.5 - 10.5 mg/dL 01/18/2023 10:13 [facility] BUN 16 10 - 26 mg/dL 01/18/2023 10:13 [facility] Creatinine 0.90 0.52 - 1.04 mg/dL 01/18/2023 10:13 [facility] eGFR 71 >60 mL/min/1.73 m2 01/18/2023 10:13 [facility] Blood VENOUS BLOOD / Unknown Venipuncture / Unknown 01/18/2023 9:17 EDT 01/18/2023 9:39 EDT Alina Santacruz MD CHEMISTRY & BLOOD GA S ORDERABLES Performing Organization Address City/[facility]/ZIP Co de Phone Number [facility] [address] [place] [address] * FERRITIN (01/18/2023 9:17 EDT) Ferritin 178 10 - 291 ng/mL 01/18/2023 10:59 EDT [facility] Blood VENOUS BLOOD / Unknown Venipuncture / Unknown 01/18/2023 9:17 EDT 01/18/2023 9:39 EDT Alina Santacruz MD CHEMISTRY & BLOOD GA S ORDERABLES [facility] [address] [place] [address] documented in this encounter Visit Diagnoses Diagnosis Rectal bleeding Hemorrhage of rectum and anus Hyperkalemia Hyperpotassemia Hypertension, unspecified type documented in this encounter Care Teams Dairy Feed Mixing Operator Relationship Specialty Start Date End Date Alina Santacruz MD [address] [place] [phone] PCP - General 08/17/21 documented as of this encounter
--- OUTSIDE RECORDS SUMMARY | 2024-01-28 18:25 | XMS_ITS | Encounter Summary ---
Author Organization [facility] Address [address] [place] [address] Care Team Providers Care Veterinary Receptionist Name Role Phone Alina Santacruz MD Primary Care Provider [phone] Reason for Referral * Cardiology (Routine/Next Available) - New Request Specialty Diagnoses / Procedures Referred By Contaudi casey Referred To Contact Diagnoses Preop examination Procedures EKG 12-LEAD Alina Santacruz MD [address] [address] Referral ID Status Reason Start Date Expiration Date V isits Requested Visits Authorized [id number] New Request 10/15/2023 1 1 Encounter Details Date Type Department Care Team (Latest Contact Info) Description 10/15/2023 Transcribe Orders [facility] LAB CLINICAL SUPPORT Alina Olivares MD [facility] [place] [address] Other specified pre-operative examination (Primary [...] [facility] - [address] [address] documented as of this encounter Results * EKG 12-LEAD (10/15/2023 15:17 EDT) 10/15/2023 15:1 7 EDT Narrative [facility] EKG - 10/16/2023 6:56 EDT ? [facility] ? Test Date: ?2023-10-15 Pat Name: ? DANIELLE RJOASNG ? Department: ? Room: ? Gender: ? Female ? Prefitter Doors: ?? [id number] : ?1955 ? Requested By: LAN Seymour Number: [id number] ? Reading MD: ?? MARGARITO WEBER MD ? Measurements Intervals ?[place] ? Rate: ? 60 ? P: ?29 [place]: ? 201 ?QRS: ?11 QRSD: ? 106 [...] Note Margarito Weber MD - 10/16/2023 [facility] Test Date: 2023-10-15 Pat Name: DANIELLE GILMAN Department: Room: Gender: Female Prefitter Doors: [id number] : 1955 Requested By: LAN ADLER Order Number: [id number] Reading MD: MARGARITO WEBER MD Measurements Intervals [place] Rate: 60 P: 29 [place]: 201 QRS: 11 QRSD: 106 T: 49 QT: 408 QTc: 409 Interpretive Statements SINUS RHYTHM Compared to ECG 06/11/2023 14:20:49 First degree AV block no longer present I reviewed the tracing and have either agreed or edited the findings inthis report. Electronically Signed On 10-16-2023 06:56:16 EDT by MARGARITO DAVIS. Alina Santacruz MD CARDIAC ECG ORDERABL ES [facility] EKG documented in this encounter Visit Diagnoses Diagnosis Other specified pre-operative examination- Primary Preop examination Preoperative examination, unspecified Preop examination Preoperative examination, unspecified documented in this encounter Care Teams Veterinary Receptionist Relationship Specialty Start Date End Date Alina Santacruz MD [address] [place] [phone] PCP - General 08/17/21 documented as of this encounter
--- OUTSIDE RECORDS SUMMARY | 2024-01-28 18:25 | XMS_ITS | Encounter Summary ---
Author Organization [facility] Address [address] [place] [address] Care Team Providers Care Retail Pharmacy Technician Name Role Phone Alina Santacruz MD Primary Care Provider [phone] Encounter Details Date Type Department Care Team (Latest Contact Info) Description 06/07/2023 Transcribe Orders [facility] LAB CLINICAL SUPPORT Alina Olivares MD [address] [address] Polyneuropathy (Primary Dx); Abnormal thyroid [...] EST Appointment [facility] Rad[facility] - [facility] [address] [place], [place] [address] documented as of this encounter Results * FOLATE (06/07/2023 14:21 EST) Folate 13.7 See Note ng/mL 06/07/2023 15:08 EST [facility] Comment: Reference Ranges for Folate: Deficient: ?< 3.4 ng/mL Indeterminate: ??3.4 - 5.4 ng/mL Normal: ? > 5.4 ng/mL The results of this assay can be falsely elevated due to the consumption of Biotin. Blood VENOUS BLOOD / Unknown Venipuncture / Unknown 06/07/2023 14:21 EST 06/07/2023 14:27 EST Alina Santacruz MD CHEMISTRY & BLOOD GA S ORDERABLES Performing Organization Address [facility] Co de Phone Number [facility] [address] [place] [address] * VITAMIN B12 (06/07/2023 14:21 EST) Vitamin B12 415 211 - 911 pg/mL 06/07/2023 15:09 EST [facility] Blood VENOUS BLOOD / Unknown Venipuncture / Unknown 06/07/2023 14:21 EST 06/07/2023 14:27 EST Alina Santacruz MD CHEMISTRY & BLOOD GA S ORDERABLES Performing Organization Address [facility] de Phone Number [facility] [address] [place] [address] * TSH (06/07/2023 14:21 EST) TSH 3.41 0.47 - 4.68 mIU/L 06/07/2023 16:11 EST [facility] Blood VENOUS BLOOD / Unknown Venipuncture / Unknown 06/07/2023 14:21 EST 06/07/2023 14:27 EST Narrative [facility] - 06/07/2023 16:11 EST The results of this assay can be falsely lowered due to the consumption of Biotin. Alina Santacruz MD CHEMISTRY & BLOOD GA S ORDERABLES Performing Organization Address [facility]/ZIP Co de Phone Number [facility] [address] [place] [address] documented in this encounter Visit Diagnoses Diagnosis [...] 06/07/2023 documented in this encounter Care Teams Retail Pharmacy Technician Relationship Specialty Start Date End Date Alina Santacruz MD [address] [place] [phone] PCP - General 08/17/21 documented as of this encounter
--- OUTSIDE RECORDS SUMMARY | 2024-01-28 18:25 | XMS_ITS | Encounter Summary ---
Author Organization [facility] Address [address] [place] [address] Care Team Providers Care Slice Plug Cutter Operator Name Role Phone Alina Santacruz MD Primary Care Provider [phone] Reason for Visit * Reason Onset Date Comments Appointment Related 08/13/2023 Encounter Details Date Type Department Care Team (Late st Contact Info) Description 08/13/2023 Telephone [facility] Interventional Pain [address] [facility] [place] [address] Leidy Jimenez PA-C [address] [facility] [address] [place] [address] Appointment Related Social History Tobacco [...] ask her to obtain note as Allie elenita from 08/06/2023 requires record release. She states she has more appointments set up with allie kwong and that she is cancelling her follow up with us. documented in this encounter Plan of Treatment Upcoming Encounters Date Type Department Care Team (Late st Contact Info) Description 05/14/2024 15:10 EST Appointment [facility] Radiology CT - [address] [id number] documented as of this encounter Visit Diagnoses Not on filedocumented in this encounter Care Teams Slice Plug Cutter Operator Relationship Specialty Start Date End Date Alina Santacruz MD [address] [place] [phone] PCP - General 08/17/21 documented as of this encounter
--- OUTSIDE RECORDS SUMMARY | 2024-01-28 18:25 | XMS_ITS | Encounter Summary ---
Author Organization [facility] Address [address] [place] [address] Care Team Providers Care Tone Cabinet Assembler Name Role Phone Alina Santacruz MD Primary Care Provider [phone] Encounter Details Date Type Department Care Team (Late Contact Info) Description 07/03/2023 Orders Only [facility] Hematology & Oncology - [address] [address] [place], EMMA [address] [place] [address] Elevated serum immunoglobulin free light chain level [...] EST Appointment [facility] Radiology [facility] [address] [place], [place] [address] documented as of this encounter Results * COMPREHENSIVE METABOLIC PANEL (ONCOLOGY USE ONLY-INC MG) (07/12/2023 13:49 EST) Sodium 138 136 - 145 mmol/L 07/12/2023 14:24 [facility] Potassium 4.9 3.5 - 5.0 mmol/L 07/12/2023 14:24 [facility] Chloride 103 96 - 110 mmol/L 07/12/2023 14:24 [facility] CO2 Total 27 22 - 32 mmol/L 07/12/2023 14:24 [facility] Glucose 89 70 - 99 mg/dl 07/12/2023 14:24 [facility] BUN 11 10 - 26 mg/dL 07/12/2023 14:24 [facility] Creatinine 0.86 0.52 - 1.04 mg/dL 07/12/2023 14:24 [facility] eGFR 74 >60 mL/min/1.7 3m2 07/12/2023 14:24 [facility] Total Protein 7.2 6.3 - 8.2 g/dL 07/12/2023 14:24 [facility] Albumin 4.2 3.4 - 4.9 g/dL 07/12/2023 14:24 [facility] Alkaline Phosphatase 72 38 - 126 U/L 07/12/2023 14:24 [facility] AST 30 15 - 46 U/L 07/12/2023 14:24 [facility] ALT 17 <35 U/L 07/12/2023 14:24 [facility] Bilirubin, Total 0.5 <1.4 mg/dL 07/12/19 14:24 [facility] Calcium 9.1 8.5 - 10.5 mg/dL 07/12/2023 14:24 [facility] Magnesium 1.9 1.7 - 2.8 mg/dL 07/12/2023 14:24 [facility] Albumin/Globulin Ratio 1.4 1.0 - 2.5 07/12/2023 14:24 [facility] Anion Gap 8 5 - 14 mmol/L 07/12/2023 14:24 [facility] Blood VENOUS BLOOD / Unknown Venipuncture / Unknown 07/12/2023 13:49 EST 07/12/2023 13:52 EST Maria Alejandra Jung MD CHEMISTRY & BLOOD GA S ORDERABLES [facility] [address] [place] [address] * (ABNORMAL) COMPLETE BLOOD COUNT AND DIFFERENTIAL (07/12/2023 13:49 EST) WBC 7.96 4.00 - 12.40 K/cmm 07/12/2023 14:09 [facility] RBC 3.97 3.86 - 5.04 M/cmm 07/12/2023 14:09 [facility] Hemoglobin 12.8 11.6 - 15.2 g/dL 07/12/2023 14:09 [facility] HCT 35.6 34.9 - 44.4 % 07/12/2023 14:09 [facility] MCV 90 81 - 98 fL 07/12/2023 14:09 [facility] MCH 32.2 26.7 - 33.3 pg 07/12/2023 14:09 [facility] MCHC 36.0(H) 32.1 - 35.9 g/dL 07/12/2023 14:09 [facility] RDW-CV 13.6 <14.7 % 07/12/2023 14:09 [facility] RDW-SD 45.0 <50.4 fl 07/12/2023 14:09 [facility] PLT 245 141 - 377 K/cmm 07/12/2023 14:09 [facility] MPV 10.8 9.5 - 12.7 fL 07/12/2023 14:09 [facility] % Neutrophils 56.1 % 07/12/2023 14:09 [facility] % Lymphocytes 32.2 % 07/12/2023 14:09 [facility] % Monocytes 9.9 % 07/12/2023 14:09 [facility] % Eosinophils 1.0 % 07/12/2023 14:09 [facility] % Basophils 0.4 % 07/12/2023 14:09 [facility] % Immature Grans 0.4 % 07/12/19 14:09 [facility] Absolute Neutrophils 4.47 2.20 - 8.85 K/cmm 07/12/2023 14:09 [facility] Absolute Lymphocytes 2.56 1.09 - 3.30 K/cmm 07/12/2023 14:09 [facility] Absolute Monocytes 0.79 0.10 - 0.80 K/cmm 07/12/2023 14:09 [facility] Absolute Eosinophils 0.08 0.03 - 0.61 K/cmm 07/12/2023 14:09 [facility] ABS Basophils 0.03 0.01 - 0.11 K/cmm 07/12/2023 14:09 [facility] Absolute Immature Grans 0.03 0.00 - 0.06 K/cmm 07/12/2023 14:09 [facility] Type of Differential: Auto 07/12/2023 14:09 [facility] Blood VENOUS BLOOD / Unknown Venipuncture / Unknown 07/12/2023 13:49 EST 07/12/2023 13:52 EST Maria Alejandra Jung MD PACKAGES & DNA PROBE ORDERABLES [facility] [address] [place] [address] documented in this encounter Visit Diagnoses Diagnosis Elevated serum immunoglobulin free light chain level- Primary Other nonspecific findings on examination of blood documented in this encounter Care Teams Tone Cabinet Assembler Relationship Specialty Start Date End Date Alina Santacruz MD [address] [place] [phone] PCP - General 08/17/21 documented as of this encounter
--- OUTSIDE RECORDS SUMMARY | 2024-01-28 18:25 | XMS_ITS | Encounter Summary ---
Author Organization [facility] Address [address] [place] [address] Care Team Providers Care Email Operations Manager Name Role Phone Alina Santacruz MD Primary Care Provider [phone] Encounter Details Date Type Department Care Team (Latest Contact Info) Description 10/15/2023 15:00 EDT - 10/15/2023 23:59 EDT Hospital Encounter [facility] Non-Invasive Cardiology - [address] [address] Estrada Michel MD [address] [place] [address] [place] [phone] Discharge Disposition: Home or Self Care [...] [facility] Rad[facility] - [address] [id number] documented as of this encounter Procedures Procedure Name Priority Date/Time Associated Diagnosis Comments ORDERS - SCANNED 10/23/2023 11:23 EDT documented in this encounter Results * ORDERS - SCANNED (10/23/2023 11:23 EDT) 10/23/2023 11:2 3 EDT Scan 2 Rn Documentation Specialist ADMISSION ORDERABLE S documented in this encounter Visit Diagnoses Not on filedocumented in this encounter Care Teams Email Operations Manager Relationship Specialty Start Date End Date Alina Santacruz MD [address] [place] [phone] PCP - General 08/17/21 documented as of this encounter
--- OUTSIDE RECORDS SUMMARY | 2024-01-28 18:25 | XMS_ITS | Encounter Summary ---
Author Organization [facility] Address [address] [place] [address] Care Team Providers Care Building Carpenter Name Role Phone Alina Santacruz MD Primary Care Provider [phone] Reason for Visit * Reason Comments Chronic Pain Encounter Details Date Type Department Care Team (Latest Contact Info) Description 06/26/2023 14:30 EST Office Visit [facility] Comprehensive Pain Program - [address] [place] [address] Jacinta Murphy NP [address] [place] [address] Neuropathy (Primary Dx) Social History [...] Contact Info) Description 05/14/2024 15:10 EST Appointment [facility] Radiology CT - [address] [address] documented as of this encounter Visit Diagnoses Diagnosis Neuropathy- Primary Mononeuritis of unspecified site documented in this encounter Care Teams Building Carpenter Relationship Specialty Start Date End Date Alina Santacruz MD [address] [place] [phone] PCP - General 08/17/21 documented as of this encounter
--- OUTSIDE RECORDS SUMMARY | 2024-01-28 18:25 | XMS_ITS | Encounter Summary ---
Author Organization [facility] Address [address] [place] [address] Care Team Providers Care Highway Landscape Architect Name Role Phone Alina Santacruz MD Primary Care Provider [phone] Encounter Details Date Type Department Care Team (Late st Contact Info) Description 11/15/2022 23:59 EDT Anesthesia Event [facility] Endoscopy - Main [address] [address] Jovani Morel AA [address] [facility] 2 [place] [address] Anesthesia Record Procedure Summary Procedure [...] (Late st Contact Info) Description 05/14/2024 15:10 [facility] Radiology CT - [address] [address] documented as of this encounter Visit Diagnoses Not on filedocumented in this encounter Care Teams Highway Landscape Architect Relationship Specialty Start Date End Date Alina Santacruz MD [address] [place] [phone] PCP - General 08/17/21 documented as of this encounter
--- OUTSIDE RECORDS SUMMARY | 2024-01-28 18:26 | XMS_ITS | Encounter Summary ---
Author Organization [facility] Address [address] [place] [address] Care Team Providers Care Model Maker Plaster Name Role Phone Ayush Ye MD Primary Care Provider Reason for Visit * Reason Onset Date Comments Appointment Related 04/27/2021 Encounter Details Date Type Department Care Team (Late Contact Info) Description 04/27/2021 [facility]phone [facility] Breast [facility] Mammography - [address] [address] Alejandra Santillan Appointment Related Social History Tobacco [...] EST Appointment [facility] Radiology CT - [address] [address] documented as of this encounter Visit Diagnoses Not on filedocumented in this encounter Care Teams Model Maker Plaster Relationship Specialty Start Date End Date Ayush Ye MD [address] [place] [phone] PCP - General Family Medicine - Primary Care 11/24/20 08/16/21 documented as of this encounter
--- OUTSIDE RECORDS SUMMARY | 2024-01-28 18:26 | XMS_ITS | Encounter Summary ---
Author Organization [facility] Address [address] [place] [address] Care Team Providers Care Certified Appliance Service Technician Name Role Phone Alina Santacruz MD Primary Care Provider [phone] Encounter Details Date Type Department Care Team (Late Contact Info) Description 11/16/2021 Transcribe Orders [facility] Endocrinology - [address] [id number] Kimberly Nichols MA Social History Tobacco Use [...] Team (Late Contact Info) Description 05/14/2024 15:10 [facility] Radiology CT - Main [place] [address] [place] [address] documented as of this encounter Visit Diagnoses Not on filedocumented in this encounter Care Teams Certified Appliance Service Technician Relationship Specialty Start Date End Date Alina Santacruz MD [address] [place] [phone] PCP - General 08/17/21 documented as of this encounter
--- OUTSIDE RECORDS SUMMARY | 2024-01-28 18:26 | XMS_ITS | Encounter Summary ---
Author Organization [facility] Address [address] [place] [address] Care Team Providers Care Realty Specialist Name Role Phone Alina Santacruz MD Primary Care Provider [phone] Reason for Referral * Referral (Emergency) - Closed Specialty Diagnoses / Procedures Referred By Contact Referred To Contact Gastroenterology / Gastroenterology and Hepatology Diagnoses Lower GI bleed Procedures COLONOSCOPY [place] COLONOSCOPY FLX DX W/COLLJ SPEC WHEN PFRMD [place] COLONOSCOPY W/BIOPSY SINGLE/MULTIPLE [place] COLSC FLX W/REMOVAL LESION BY HOT BX FORCEPS ANESTHESIA LOWER INTST ENDOSCOPIC PX NOS Alina Santacruz MD [address] [phone] [place] [address] [place] [address] Referral ID Status Reason Start Date Expiration Date Visits Re quested Visits Authorized [id number] Closed 11/06/2022 1 1 Encounter Details Date Type Department Care Team (Latest Contact Info) Description 11/06/2022 Transcribe Orders [facility] Gastroenterology - Main [place] [address] [place] [address] Alina Santacruz MD [address] [phone] Lower GI bleed (Primary Dx) [...] (Late st Contact Info) Description 05/14/2024 15:10 [facility] Radiology CT - [address] [address] Scheduled Orders Name Type Priority Associated Diagnoses Orde r Schedule COLONOSCOPY GI Routine Lower GI bleed Ordered: 11/06/2022 documented as of this encounter Visit Diagnoses Diagnosis Lower GI bleed- Primary Hemorrhage of gastrointestinal tract, unspecified documented in this encounter Care Teams Realty Specialist Relationship Specialty Start Date End Date Alina Santacruz MD [address] [place] [phone] PCP - General 08/17/21 documented as of this encounter
--- OUTSIDE RECORDS SUMMARY | 2024-01-28 18:26 | XMS_ITS | Encounter Summary ---
Author Organization [facility] Address [address] [place] [address] Care Team Providers Care Certified Dietary Manager Name Role Phone Alina Santacruz MD Primary Care Provider [phone] Reason for Referral * Cardiology (Routine/Next Available) - Closed Specialty Diagnoses / Procedures Referred By Radha t Referred To Contact Nuclear Medicine Diagnoses Chest pain, unspecified type Procedures NM CARD SPECT NUCLEAR STRESS CHG MYOCARDIAL SPECT MULTIPLE STUDIES Alina Santacruz MD [facility] Postal[employer] [address] [phone] [facility] Referral ID Status Reason Start Date Expiration Date Visits Re quested Visits Authorized [id number] Closed 08/16/2021 06/03/2022 1 1 Reason for Visit * Cardiology (Routine/Next Available) - Closed Specialty Diagnoses / Procedures Referred By Radha casey Referred To Contact Nuclear Medicine Diagnoses Chest pain, unspecified type Procedures NM CARD SPECT NUCLEAR STRESS CHG MYOCARDIAL SPECT MULTIPLE STUDIES Alina Santacruz MD [address] [address] [facility] Referral ID Status Reason Start Date Expiration Date Visits Re quested Visits Authorized [id number] Closed 08/16/2021 06/03/2022 1 1 Encounter Details Date Type Department Care Team (Latest Contact Info) Description 08/25/2021 9:30 EDT Hospital En[facility] Radiology Nuclear Medicine and PET - [address] [address] Chest pain, unspecified type Discharge Disposition: Home [...] (Late st Contact Info) Description 05/14/2024 15:10 [facility] Radiology CT - Main [address] [address] documented as of this encounter Procedures Procedure [...] MERGE CARDIO Baseline Diastolic BP 70 mmHg MCKESSON NMIS MERGE CARDIO Peak HR 104 bpm MCKESSON N MIS MERGE CARDIO Percent HR 67 [place] NMIS MERGE CARDIO Systolic BP 120 mmHg MCKESSON NMIS MERGE CARDIO Peak Diastolic BP 56 mmHg [place]CKESS[place] NMIS MERGE CARDIO Recovery HR 86 bpm MCKESSON NMIS MERGE CARDIO Recovery BP 129 mmHg MCKESSON NMIS MERGE CARDIO Recovery Diastolic BP 71 mmHg MCKESSON NMIS MERGE CARDIO Pre test likelihood of obstructive CAD 11 MCKESSON NMI S MERGE CARDIO Nuc Stress EF 58 % MCKESS ON NMIS MERGE CARDIO Anatomical Region Laterality [...] 08/25/2021 documented in this encounter Care Teams Certified Dietary Manager Relationship Specialty Start Date End Date Alina Santacruz MD [address] [place] [phone] PCP - General 08/17/21 documented as of this encounter
--- OUTSIDE RECORDS SUMMARY | 2024-01-28 18:26 | XMS_ITS | Encounter Summary ---
Author Organization [facility] Address [address] [place] [address] Care Team Providers Care City Bus Driver Name Role Phone Alina Santacruz MD Primary Care Provider [phone] Reason for Visit * Reason Comments Back Pain R-sided low back skylar n x2mos. Scheduled for MRI 12/28, but cannot wait. Chronic low back pain hx. 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 Encounter Details Date Type Department Care Team ([facility] st Contact Info) Description 12/18/2021 10:11 EDT - 12/18/2021 15:02 EDT Emergency [facility] Emergency Department - [address] [address] Allen Freeman MD 111 [facility], Level 1 [place] [address] Acute right-sided low back pain [...] better. Please continue to follow-up with your medical insurance coding specialist, and take your usual medications. documented in [...] Take 25 mg by mouth daily. 01/07/2024 clobetasoL (TEMOVATE) 0.05 % cream Apply topically 2 times daily. 01/07/2024 lisinopril (PRINIVIL) 2.5 mg tablet Take 2.5 mg by mouth daily. 01/17/2022 promethazine (PHENERGAN) 25 mg tablet Take 25 mg by mouth every 4 hours. 01/07/2024 documented as of this encounter Discharge Disposition Disposition Code Departure Means Destination Home or Self Senior Care documented in this encounter ED Notes * Wendy Troy RN - 12/18/2021 1501 EDT IV d/c'd discharge instructions given VSS discharge to home with family * Allen Freeman MD - 12/18/2021 1112 EDT Emergency Department Visit This patient received an evaluation and medical screening exam for emergent medical conditions at the [facility] on 12/18/2021 This documentation is recorded [...] low back pain hx. 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 female with PMH including chronic back pain who presents to the ED for assessment of back pain. The patient reports that she has a history of chronic left-sided nerve damage, resulting in left-sided pain that she follows closely with [facility] for. She states that for [...] Negative Final Ketones UA Negative Final Specific [place], Urine 1.006 Final Blood UA Negative Final [...] was obtained and independently interpreted: Sinus rhythm. NJ interval 225. No ST elevation or depression. [...] (Late st Contact Info) Description 05/14/2024 15:10 [facility] [place]iology [place] [address] documented as of this encounter Procedures Procedure [...] 5:26 EDT) 12/25/2021 5:26 EDT Scan 2 Photographer'S Assistant PROCEDURE/MINOR OMID GICAL ORDERABLES * ECG REPORT - SCANNED (12/25/2021 5:26 EDT) 12/25/2021 5:26 EDT Scan 2 Photographer'S Assistant PROCEDURE/MINOR OMID GICAL ORDERABLES * EKG 12-LEAD (12/18/2021 14:05 EDT) 12/18/2021 14:0 5 EDT Narrative [facility] EKG - 12/23/2021 11:26 EDT ?[facility] Emergency ? Test Date: ?2021-12-18 Pat Name: ? DANIELLE GILMAN ? Department: ?? ED ? Room: ? WB02 Gender: ? Female ? Assembler Tractor: ?? [id number] : ?1955 ? Requested By: MONI Wilkinson Order Number: [id number] ? Allie DUQUE: ?? IVETT SAM MD ? Measurements Intervals ?[place] ? Rate: ? 61 ? P: ?-14 NJ: ? 225 ?QRS: ?17 QRSD: ? 96 [...] Note Ivett Sam MD - 12/23/2021 [facility] Emergency Test Date: 2021-12-18 Pat Name: DANIELLE GILMAN Department: ED Room: [facility] Gender: Female Assembler Tractor: [id number] : 1955 Requested By: MONI Wilkinson Order Number: [id number] Reading MD: IVETT SAM MD Measurements Intervals [place] Rate: 61 P: -14 NJ: 225 QRS: 17 QRSD: 96 T: 38 QT: 402 QTc: 407 Interpretive Statements SINUS RHYTHM WITH FIRST DEGREE AV BLOCK MODERATE T-WAVE ABNORMALITY, CONSIDER LATERAL ISCHEMIA . No previous ECG available for comparison I reviewed the tracing and have either agreed or edited the findings inthis report. Electronically Signed On 12-23-2021 11:26:14 EDT by YOSELIN DUQUE. Allen Freeman MD CARDIAC ECG ORDERABL ES [facility] EKG * CT ABDOMEN PELVIS WO CONTRAST [...] changes at the L4-5 and L5-S1 levels. Mechanical Engineering Director: No additional findings. Procedure Note Melyssa Vincent [...] degenerative changesat the L4-5 and L5-S1 levels. Mechanical Engineering Director: No additional findings. IMPRESSION 1. Tiny density within the upper pole of the left kidney could reflect asmall obstructive calculus. No obstructing stone or hydronephrosis. 2. Cholelithiasis 3. Degenerative changes at L4-5 and L5-S1. 4. Status post hysterectomy I have personally reviewed the images and the above interpretation andagree with the findings. Allen Freeman MD [facility] ORDERABLES * URINE CHEMICAL (DIP) & SEDIMENT (MICRO) WITH REFLEX TO CULTURE (12/18/2021 12:19 EDT) Color UA Yellow Colorless, Yellow 12/18/2021 12:42 EDT [facility] Clarity UA Clear Clear 12/18/2021 12:42 EDT [facility] Glucose UA Negative Negative 12/18/2021 12:42 EDT [facility] Bilirubin UA Negative Negative 12/18/2021 12:42 EDT [facility] Ketones UA Negative Negative 12/18/2021 12:42 [facility] Specific [place], Urine 1.006 1.001 - 1.035 12/18/2021 12:42 [facility] Blood UA Negative Negative 12/18/2021 12:42 [facility] Urobilinogen UA Normal Normal mg/dL 022 12:42 [facility] Nitrite UA Negative Negative 12/18/2021 12:42 [facility] Leukocyte Esterase UA Negative Negative 12/18/2021 12:42 [facility] Protein UA Negative Negative 12/18/2021 12:42 [facility] pH, UA 6.5 4.6 - 8.0 12/18/2021 12:42 [facility] Urine RBC Count, Auto 0 - 2 0 - 2 Cells/HPF 12/18/2021 12:42 [facility] Urine WBC Count, Auto 0 - 3 0 - 3 Cells/HPF 12/18/2021 12:42 [facility] Urine Squamous Count, Auto None Seen None Seen Cells/HPF 12/18/2021 12:42 [facility] Urine Hyaline Cast Count, Auto <=10 <=10 Casts/LPF 12/18/2021 12:42 [facility] Urine Bacteria Count, Auto None Seen None Seen Bacteria/HPF 12/18/2021 12:42 [facility] Urine URINE SPECIMEN COLLECTION, CLEAN CATCH / Unknown Urine Collect / Unknown 12/18/2021 12:19 EDT 12/18/2021 12:24 EDT Narrative [facility] - 12/18/2021 12:42 EDT NOTE: Reflex to Urine Culture test is not indicated based on Urine Sediment Analysis results. Urine Sediment Analysis results are unreliable on urines that are unrefrigerated for >2 hrs or refrigerated >8 hrs. Allen Freeman MD URINALYSIS ORDERABLE S [facility] [address] [place] [address] * (ABNORMAL) COMPREHENSIVE METABOLIC PANEL (CMP) (12/18/2021 12:16 EDT) Sodium 132(L) 136 - 145 mmol/L 12/18/2021 13:39 [facility] Potassium 5.8(H) 3.5 - 5.0 mmol/L 12/18/2021 13:39 [facility] Chloride 100 96 - 110 mmol/L 12/18/2021 13:39 [facility] CO2 Total 29 22 - 32 mmol/L 12/18/2021 13:39 [facility] Glucose 88 70 - 100 mg/dL 12/18/2021 13:39 [facility] BUN 18 10 - 26 mg/dL 12/18/2021 13:39 [facility] Creatinine 0.93 0.52 - 1.04 mg/dL 12/18/2021 13:39 [facility] eGFR 69 >60 mL/min/1.7 3m2 12/18/2021 13:39 [facility] Total Protein 7.4 6.3 - 8.2 g/dL 12/18/2021 13:39 [facility] Albumin 4.4 3.4 - 4.9 g/dL 12/18/2021 13:39 [facility] Alkaline Phosphatase 71 38 - 126 U/L 12/18/2021 13:39 [facility] AST 38 15 - 46 U/L 12/18/2021 13:39 [facility] ALT 20 <35 U/L 12/18/2021 13:39 [facility] Bilirubin, Total <0.5 <1.4 mg/dL 12/19/19 13:39 [facility] Calcium 9.0 8.5 - 10.5 mg/dL 12/18/2021 13:39 [facility] Albumin/Globulin Ratio 1.5 1.0 - 2.5 12/18/2021 13:39 [facility] Anion Gap 3(L) 5 - 14 12/18/2021 13:39 [facility] Blood VENOUS BLOOD / Unknown Venipuncture / Unknown 12/18/2021 12:16 EDT 12/18/2021 12:24 EDT Allen Freeman MD CHEMISTRY & BLOOD GA S ORDERABLES [facility] [address] [place] [address] * (ABNORMAL) COMPLETE BLOOD COUNT AND DIFFERENTIAL (12/18/2021 12:16 EDT) WBC 6.78 4.00 - 12.40 K/cmm 12/18/2021 12:39 [facility] RBC 3.78(L) 3.86 - 5.04 M/cmm 12/18/2021 12:39 [facility] Hemoglobin 12.0 11.6 - 15.2 gm/dL 12/18/2021 12:39 [facility] HCT 35.1 34.9 - 44.4 % 12/18/2021 12:39 [facility] MCV 93 81 - 98 fl 12/18/2021 12:39 [facility] MCH 31.7 26.7 - 33.3 pg 12/18/2021 12:39 [facility] MCHC 34.2 32.1 - 35.9 gm/dL 12/18/2021 12:39 [facility] RDW-CV 13.8 <14.7 % 12/18/2021 12:39 [facility] RDW-SD 46.8 <50.4 fl 12/18/2021 12:39 [facility] PLT 222 141 - 377 K/cmm 12/18/2021 12:39 [facility] MPV 10.2 9.5 - 12.7 fl 12/18/2021 12:39 [facility] % Neutrophils 47.5 % 12/18/2021 12:39 [facility] % Lymphocytes 40.7 % 12/18/2021 12:39 [facility] % Monocytes 9.7 % 12/18/2021 12:39 [facility] % Eosinophils 1.2 % 12/18/2021 12:39 [facility] % Basophils 0.6 % 12/18/2021 12:39 [facility] % Immature Grans 0.3 % 12/19/19 12:39 [facility] Absolute Neutrophils 3.22 2.20 - 8.85 K/cmm 12/18/2021 12:39 [facility] Absolute Lymphocytes 2.76 1.09 - 3.30 K/cmm 12/18/2021 12:39 [facility] Absolute Monocytes 0.66 0.10 - 0.80 K/cmm 12/18/2021 12:39 [facility] Absolute Eosinophils 0.08 0.03 - 0.61 K/cmm 12/18/2021 12:39 [facility] ABS Basophils 0.04 0.01 - 0.11 K/cmm 12/18/2021 12:39 [facility] Absolute Immature Grans 0.02 0.00 - 0.06 K/cmm 12/18/2021 12:39 [facility] Type of Differential: Auto 12/18/2021 12:39 [facility] Blood VENOUS BLOOD / Unknown Venipuncture / Unknown 12/18/2021 12:16 EDT 12/18/2021 12:24 EDT Allen Freeman MD PACKAGES & DNA PROBE ORDERABLES [facility] [address] [place] [address] documented in this encounter Visit Diagnoses Diagnosis [...] STAT 1152 (Given - Provid er: Theresa Joaquin RN) sodium chloride 0.9 % BOLUS 500 mL (COMPLETED) 500 mL, intravenous, NOW X1, 1 dose, On 12/18/21 at 1345, STAT 1410 (New Bag - Prov ider: Theresa Joaquin RN) documented in this encounter Care Teams City Bus Driver Relationship Specialty Start Date End Date Alina Santacruz MD [address] [place] [phone] PCP - General 08/17/21 documented as of this encounter
--- OUTSIDE RECORDS SUMMARY | 2024-01-28 18:26 | XMS_ITS | Encounter Summary ---
Author Organization [facility] Address [address] [place] [address] Care Team Providers Care Human Capital Manager Name Role Phone Alina Santacruz MD Primary Care Provider [phone] Reason for Visit * Reason Onset Date Comments Colonoscopy 11/08/2022 Encounter Details Date Type Department Care Team ([facility] st Contact Info) Description 11/08/2022 Telephone [facility] Gastroenterology - [address] [address] James Culver MD 111 [facility], Level 5 [place] [address] Colonoscopy Social History Tobacco Use [...] GI office. 1 Kit 11/08/2022 01/07/2024 documented in this encounter Miscellaneous Notes * Telephone Encounter - Veda Moore - 11/08/2022 3780 EDT Patient scheduled for COLONOSCOPY with [facility] on 11/15. Would like Suprep sent to [facility] in [place]. She states her insurance has covered it before. documented in this encounter Plan of Treatment Upcoming Encounters Date Type Department Care Team (Late st Contact Info) Description 05/14/2024 15:10 EST Appointment [facility] Radiology CT - [address] [address] documented as of this encounter Visit Diagnoses Not on filedocumented in this encounter Care Teams Human Capital Manager Relationship Specialty Start Date End Date Alina Santacruz MD [address] [place] [phone] PCP - General 08/17/21 documented as of this encounter
--- OUTSIDE RECORDS SUMMARY | 2024-01-28 18:26 | XMS_ITS | Encounter Summary ---
Author Organization [facility] Address [address] [place] [address] Care Team Providers Care Golf Club Assembler Name Role Phone Ayush Ye MD Primary Care Provider Alina Santacruz MD Primary Care Provider [phone] Encounter Details Date Type Department Care Team (Late Contact Info) Description 07/16/2021 Lab Requisition [facility] Pathology & Laboratory Medicine - [address] [id number] Outr Resulting Lab, Provider Social History Tobacco [...] Contact Info) Description 05/14/2024 15:10 EST [facility] - [address] [id number] documented as of this encounter Procedures Procedure Name Priority Date/Time Associated Diagnosis Comments HIV 1/2 ANTIGEN AND ANTIBODY, 4TH GENERATION Routine 07/15/2021 11:00 EST documented in this encounter Results * HIV 1/2 ANTIGEN AND ANTIBODY, 4TH GENERATION (07/15/2021 11:00 EST) HIV 1 and 2 Antibody/p24 Antigen, 4th Generation Negative Negative 07/18/2021 10:02 EST [facility] Comment:If acute HIV-1 infec tion is suspected in a high risk patient, submit plasma specimen for HIV-1 RNA quantitation test. Blood VENOUS BLOOD / Unknown 07/15/2021 11:00 EST 07/16/2021 21:30 EST Narrative [facility] - 07/18/2021 10:02 EST Fourth Generation assay performed on the Siemens BioKieraur XPT. Provider Outr Resulting Lab IMMUNOLOGY A ND SEROLOGY ORDERABLES [facility] [address] [place] [address] documented in this encounter Visit Diagnoses Not on filedocumented in this encounter Additional Health Concerns Infection Onset Date Last Indicated Resolved Time Rule-Out C. difficile 10/30/2022 10/30/20222022 13:17 EDT documented as of this encounter Care Teams Golf Club Assembler Relationship Specialty Start Date End Date Ayush Ye MD [address] [place] [phone] PCP - General Family Medicine - Primary Care 11/24/20 08/16/21 Alina Santacruz MD [address] [place] [phone] PCP - General 08/17/21 documented as of this encounter
--- OUTSIDE RECORDS SUMMARY | 2024-01-28 18:26 | XMS_ITS | Encounter Summary ---
Author Organization [facility] Address [address] [place] [address] Care Team Providers Care Tube Cutter Name Role Phone Alina Santacruz MD Primary Care Provider [phone] Encounter Details Date Type Department Care Team (Late Contact Info) Description 08/03/2022 9:00 EST Phlebotomy Only [facility] ED Center 2 Phlebotomy [address] [place] [address] Dispatcher Maintenance Service, Acc Phlebotomy Hypertension, unspecified type Social History [...] (Late Contact Info) Description 05/14/2024 15:10 EST [facility] Radiology [place] - [facility] [address] [place], [place] [address] documented as of this encounter Procedures Procedure Name Priority Date/Time Associated Diagnosis Comments BASIC METABOLIC PANEL (BMP) Routine 08/03/2022 9:21 EST Hypertension, unspecified type documented in this encounter Results * (ABNORMAL) BASIC METABOLIC PANEL (BMP) (08/03/2022 9:21 EST) Sodium 141 136 - 145 mmol/L 08/03/2022 10:23 EST [facility] Potassium 5.6(H) 3.5 - 5.0 mmol/L 08/03/2022 10:23 [facility] Chloride 102 96 - 110 mmol/L 08/03/2022 10:23 [facility] CO2 Total 30 22 - 32 mmol/L 08/03/2022 10:23 [facility] Anion Gap 9 5 - 14 08/03/2022 10:23 [facility] Glucose 80 70 - 100 mg/dL 08/03/2022 10:23 [facility] Calcium 9.4 8.5 - 10.5 mg/dL 08/03/2022 10:23 [facility] BUN 18 10 - 26 mg/dL 08/03/2022 10:23 [facility] Creatinine 0.97 0.52 - 1.04 mg/dL 08/03/2022 10:23 [facility] eGFR 65 >60 mL/min/1.73 m2 08/03/2022 10:23 [facility] Blood VENOUS BLOOD / Unknown Venipuncture / Unknown 08/03/2022 9:21 EST 08/03/2022 9:55 EST Alina Santacruz MD CHEMISTRY & BLOOD GA S ORDERABLES Performing Organization Address [facility]/State/[facility] Co de Phone Number [facility] [address] [place] [address] documented in this encounter Visit Diagnoses Diagnosis Hypertension, unspecified type documented in this encounter Care Teams Tube Cutter Relationship Specialty Start Date End Date Alina Santacruz MD [address] [place] [phone] PCP - General 08/17/21 documented as of this encounter
--- OUTSIDE RECORDS SUMMARY | 2024-01-28 18:26 | XMS_ITS | Encounter Summary ---
Author Organization [facility] Address [address] [place] [address] Care Team Providers Care Business Support Assistant Name Role Phone Alina Santacruz MD Primary Care Provider [phone] Reason for Visit * Reason Comments New Patient Visit * Consult (Routine) - Authorization Not Required Specialty Diagnoses / Procedures Referred By Radha casey Referred To Contact [facility] Ep2 Hem/Onc [address] [place] [phone] [facility] Ep2 Hem/Onc [address] [place] [address] Referral ID Status Reason Start Date Expiration Date Visits Requested Visits Authorized [id number] Authorization Not Required 1 1 Encounter Details Date Type Department Care Team ([facility] st Contact Info) Description 07/11/2022 10:00 EST Office Visit [facility] Hematology & Oncology - [address] [address] Iman Hodge, [facility] 111 [facility] 2 [place] [phone] Adjustment reaction with anxiety and depression (Primary [...] (Late st Contact Info) Description 05/14/2024 15:10 [facility] Appointment [facility] Radiology CT - [address] [address] documented as of this encounter Visit Diagnoses Diagnosis Adjustment reaction with anxiety and depression- Primary Adjustment disorder with mixed anxiety and depressed mood Grief Adjustment disorder with depressed mood documented in this encounter Care Teams Business Support Assistant Relationship Specialty Start Date End Date Alina Santacruz MD [address] [place] [phone] PCP - General 08/17/21 documented as of this encounter
--- OUTSIDE RECORDS SUMMARY | 2024-01-28 18:26 | XMS_ITS | Encounter Summary ---
Author Organization [facility] Address [address] [place] [address] Care Team Providers Care Haulage Boss Name Role Phone Alina Santacruz MD Primary Care Provider [phone] Reason for Visit * Cardiology (Routine/Next Available) - Closed Specialty Diagnoses / Procedures Referred By Contac t Referred To Contact Cardiology Diagnoses Mitral valve insufficiency, unspecified etiology Procedures TRANSTHORACIC ECHO (TTE) COMPLETE NE ECHO HEART XTHORACIC,COMPLETE W DOPPLER Alina Santacruz MD [address] [place] [address] [place] [phone] [facility] Cardiology [address] [place] [address] Referral ID Status Reason Start Date Expiration Date Visits Re quested Visits Authorized [id number] Closed 10/12/2021 06/03/2022 1 1 Encounter Details Date Type Department Care Team (Latest Contact Info) Description 03/06/2022 14:00 EDT Ancillary Procedure [facility] Cardiology - Radha Joanne [address]arc[address] [place], [place] [id number] Mitral valve insufficiency, unspecified etiology Social History [...] (Late st Contact Info) Description 05/14/2024 15:10 [facility] Radiology CT - Main [address] [address] documented as of this encounter Procedures Procedure [...] color Doppler.The study was interpreted by [facility] Cardiology. Pertinent images and digital data are archived for permanent storage and are available for subsequent review. Scanning was performed from the apical, parasternal, subcostal and suprasternal acoustic windows. Overall the study quality was suboptimal. The study was difficult due to patient body habitus. Images were obtained using cardiac ultrasound machine EPIQ #15. Alina Santacruz MD CARDIAC ECHO ORDERAB LES documented in this encounter Visit Diagnoses Diagnosis Mitral valve insufficiency, unspecified etiology documented in this encounter Care Teams Haulage Boss Relationship Specialty Start Date End Date Alina Santacruz MD [address] [place] [phone] PCP - General 08/17/21 documented as of this encounter
--- OUTSIDE RECORDS SUMMARY | 2024-01-28 18:26 | XMS_ITS | Encounter Summary ---
Author Organization [facility] Address [address] [place] [address] Care Team Providers Care Liquid Fertilizer Servicer Name Role Phone Alina Santacruz MD Primary Care Provider [phone] Encounter Details Date Type Department Care Team (Late Contact Info) Description 02/17/2022 Orders Only [facility] Spine Program - [address] [address] Rangel Sheriff MD [address] [place] [phone] Low back pain, unspecified back pain [...] Team (Late Contact Info) Description 05/14/2024 15:10 [facility] Radiology CT - Main [place] [address] [place] [address] documented as of this encounter [...] present documented in this encounter Care Teams Liquid Fertilizer Servicer Relationship Specialty Start Date End Date Alina Santacruz MD [address] [place] [phone] PCP - General 08/17/21 documented as of this encounter
--- OUTSIDE RECORDS SUMMARY | 2024-01-28 18:26 | XMS_ITS | Encounter Summary ---
Author Organization [facility] Address [address] [place] [address] Care Team Providers Care Beauty Sales Consultant Name Role Phone Alina Santacruz MD Primary Care Provider [phone] Reason for Visit * Cardiology (Routine/Next Available) - Closed Specialty Diagnoses / Procedures Referred By Contac t Referred To Contact Nuclear Medicine Diagnoses Chest pain, unspecified type Procedures NM CARD SPECT NUCLEAR STRESS CHG MYOCARDIAL SPECT MULTIPLE STUDIES Alina Santacruz MD [address] [place] [address] [place] [phone] [facility] Referral ID Status Reason Start Date Expiration Date Visits Re quested Visits Authorized [id number] Closed 08/16/2021 06/03/2022 1 1 Encounter Details Date Type Department Care Team (Latest Contact Info) Description 08/25/2021 9:30 EDT Hospital Encounter [facility] Non-Invasive [place]iology [place] [address] Discharge Disposition: Home or Self Care Social [...] (Late st Contact Info) Description 05/14/2024 15:10 [facility] Radiology CT - [address] [address] documented as of this encounter Procedures Procedure [...] 06/17/2021 added in this encounter Care Teams Beauty Sales Consultant Relationship Specialty Start Date End Date Alina Santacruz MD [address] [place] [phone] PCP - General 08/17/21 documented as of this encounter
--- OUTSIDE RECORDS SUMMARY | 2024-01-28 18:26 | XMS_ITS | Encounter Summary ---
Author Organization [facility] Address [address] [place] [address] Care Team Providers Care Digital Media Associate Name Role Phone Alina Santacruz MD Primary Care Provider [phone] Reason for Visit * (Routine/Next Available) - Receiving Office to Obtain Authorization Specialty Diagnoses / Procedures Referred By Radha casey Referred To Contact Procedures MR OUTSIDE IMAGES NEURO MR OUTSIDE IMAGES NEURO Unknown, Provider, Referral ID Status Reason Start Date Expiration Date Visits Requested Visits Authorized [id number] Receiving Office to Obtain Authorization 10/10/2021 1 1 Encounter Details Date Type Department Care Team (Latest Contact Info) Description 10/09/2021 - 10/09/2021 23:59 EDT Hospital Encounter [facility] [place] Discharge Disposition: Home or [...] Care Team ( st Contact Info) Description 05/14/2024 15:10 [facility] Radiology CT - Main [place] [address] [place] [address] documented as of this encounter Visit Diagnoses Not on filedocumented in this encounter Care Teams Digital Media Associate Relationship Specialty Start Date End Date Alina Santacruz MD [address] [place] [phone] PCP - General 08/17/21 documented as of this encounter
--- OUTSIDE RECORDS SUMMARY | 2024-01-28 18:26 | XMS_ITS | Encounter Summary ---
Author Organization [facility] Address [address] [place] [address] Care Team Providers Care Transit Operations Supervisor Name Role Phone Alina Santacruz MD Primary Care Provider [phone] Reason for Referral * Radiology Services (Routine/Next Available) - Authorization Not Required Specialty Diagnoses / Procedures Referred By Contac t Referred To Contact Radiology Diagnoses Cervical myelopathy ([facility]) Procedures MR CERVICAL SPINE WO CONTRAST Ayush Shirley PA-C [address] [place] [phone] [facility] Referral ID Status Reason Start Date Expiration Date Visits Requested Visits Authorized [id number] Authorization Not Required 12/07/2021 1 1 Reason for Visit * Radiology Services (Routine/Next Available) - Authorization Not Required Specialty Diagnoses / Procedures Referred By Contac t Referred To Contact Radiology Diagnoses Cervical myelopathy ([facility]) Procedures MR CERVICAL SPINE WO CONTRAST Ayush Shirley PA-C [address] [place] [address] [facility] Referral ID Status Reason Start Date Expiration Date Visits Requested Visits Authorized [id number] Authorization Not Required 12/07/2021 1 1 Encounter Details Date Type Department Care Team (Latest Contact Info) Description 12/28/2021 15:18 EDT - 12/28/2021 23:59 EDT Hospital Encounter [facility] MRI [address] [place] [address] Cervical myelopathy ([facility]) ([facility]) ([facility]) Discharge Disposition: Home or Self Care Social [...] (Late st Contact Info) Description 05/14/2024 15:10 [facility] Radiology CT - [address] [address] documented as of this encounter Procedures Procedure Name Priority Date/Time Associated Diagnosis Comments MR CERVICAL SPINE WO CONTAST Routine 12/28/2021 17:37 EDT Cervical myelopathy (HCC-CMS) (HCC) (HCC-CMS) documented in this encounter Results * MR [...] andagree with the findings. Ayush Shirley PA-C IMG MRI ORDERABLES documented in this encounter Visit Diagnoses Diagnosis Cervical myelopathy (HCC-CMS) Cervical spondylosis with myelopathy documented in this encounter Care Teams Transit Operations Supervisor Relationship Specialty Start Date End Date Alina Santacruz MD [address] [place] [place] [phone] PCP - General 08/17/21 documented as of this encounter
--- OUTSIDE RECORDS SUMMARY | 2024-01-28 18:26 | XMS_ITS | Encounter Summary ---
Author Organization [facility] Address [address] [place] [address] Care Team Providers Care Retail Sales Associate Name Role Phone Alina Santacruz MD Primary Care Provider [phone] Encounter Details Date Type Department Care Team [...] st Contact Info) Description 05/14/2024 15:10 [facility] Radiology CT - Main [place] [address] [place], [place] [phone] documented as of this encounter Visit Diagnoses Not on filedocumented in this encounter Care Teams Retail Sales Associate Relationship Specialty Start Date End Date Alina Santacruz MD [address] [place] [phone] PCP - General 08/17/21 documented as of this encounter
--- OUTSIDE RECORDS SUMMARY | 2024-01-28 18:26 | XMS_ITS | Encounter Summary ---
Author Organization [facility] Address [address] [place] [address] Care Team Providers Care Job Superintendent Name Role Phone Alina Santacruz MD Primary Care Provider [phone] Encounter Details Date Type Department Care Team (Late Contact Info) Description 10/08/2021 Lab Requisition [facility] Pathology & Laboratory Medicine - [address] [address] Outr Resulting Lab, Provider Social History Tobacco [...] Team (Late Contact Info) Description 05/14/2024 15:10 [facility] Radiology CT - [address] [address] documented as of this encounter Procedures Procedure Name Priority Date/Time Associated Diagnosis Comments HCV RNA DETECT QUANT Today 10/07/2021 15:37 EDT HEPATITIS C AB W REFLEX TO HCV RNA BY PCR Routine 10/07/2021 15:37 EDT documented in this encounter Results * HCV RNA DETECT QUANT (10/07/2021 15:37 EDT) HCV RNA Qualitative Undetected Undetected 10/12/2021 15:[address] [facility] Blood VENOUS BLOOD / Unknown 10/07/2021 15:37 EDT 10/08/2021 21:53 EDT Narrative [facility] - 10/12/2021 15:31 EDT The quantification range of this assay is 15 IU/mL to 100,000,000 IU/mL. Testing was performed using the Rafa HCV test ([employer] with the rafa [employer] System. Provider Outr Resulting Lab CHEMISTRY & BLOOD GAS ORDERABLES Performing Organization Address City/[facility]/ZIP Co de Phone Number [facility] [address] [place] [address] * (ABNORMAL) HEPATITIS C AB W REFLEX TO HCV RNA BY PCR (10/07/2021 15:37 EDT) Hep C Antibody Reactive(A ) Negative 10/10/2021 12:[address] [facility] Comment: Supplemental testing for HCV RNA is ordered to rule out active HCV infection. Blood VENOUS BLOOD / Unknown 10/07/2021 15:37 EDT 10/08/2021 21:53 EDT Provider Outr Resulting Lab CHEMISTRY & BLOOD GAS ORDERABLES Performing Organization Address City/[facility]/ZIP Co de Phone Number [facility] [address] [place] [address] documented in this encounter Visit Diagnoses Not on filedocumented in this encounter Additional Health Concerns Infection Onset Date Last Indicated Resolved Time Rule-Out C. difficile 10/30/2022 10/30/20222022 13:17 EDT documented as of this encounter Care Teams Job Superintendent Relationship Specialty Start Date End Date Alina Santacruz MD [address] [place] [phone] PCP - General 08/17/21 documented as of this encounter
--- OUTSIDE RECORDS SUMMARY | 2024-01-28 18:26 | XMS_ITS | Encounter Summary ---
Author Organization [facility] Address [address] [place] [address] Care Team Providers Care Child Adolescent Care Name Role Phone Alina Santacruz MD Primary Care Provider [phone] Encounter Details Date Type Department Care Team (Latest Contact Info) Description 02/20/2022 14:05 EDT - 02/20/2022 23:59 EDT [address] Encounter [address] X[address] [place] [address] Low back pain, unspecified back [...] cream Apply topically 2 times daily. 01/07/2024 fosinopriL-hydrochlorot hiazide (MONOPRIL-HCT) 10-12.5 mg per tablet [...] st Contact Info) Description 05/14/2024 15:10 [facility] Radiology CT - Main [address] [address] documented as of this encounter Procedures Procedure [...] present documented in this encounter Care Teams Child Adolescent Care Relationship Specialty Start Date End Date Alina Santacruz MD [address] [place] [phone] PCP - General 08/17/21 documented as of this encounter
--- OUTSIDE RECORDS SUMMARY | 2024-01-28 18:26 | XMS_ITS | Encounter Summary ---
Author Organization [facility] Address [address] [place] [address] Care Team Providers Care Turf Grower Name Role Phone Ayush Ye MD Primary Care Provider Reason for Visit * Reason Onset Date Comments Appointment Related 02/03/2021 Encounter Details Date Type Department Care Team (Late Contact Info) Description 02/03/20[facility] Mammography - [address] [address] rBandy Wasserman Appointment Related Social History Tobacco Use [...] EST [facility] Radiology CT - [address] [address] documented as of this encounter Visit Diagnoses Not on filedocumented in this encounter Care Teams Turf Grower Relationship Specialty Start Date End Date Ayush Ye MD [address] [place] [phone] PCP - General Family Medicine - Primary Care 11/24/20 08/16/21 documented as of this encounter
--- OUTSIDE RECORDS SUMMARY | 2024-01-28 18:26 | XMS_ITS | Encounter Summary ---
Author Organization [facility] Address [address] [place] [address] Care Team Providers Care Rhit Name Role Phone Alina Santacruz MD Primary Care Provider [phone] Reason for Visit * Reason Comments Back Pain LBP MRI f/u * Referral (Routine) - Receiving Office to Obtain Authorization Specialty Diagnoses / Procedures Referred By Contac t Referred To Contact Orthopedic Surgery Diagnoses Chronic back pain Alina Santacruz MD [address] [place] [phone] [facility] Ortho Spine [address] [facility] [place] [address] Referral ID Status Reason Start Date Expiration Date Visits Requested Visits Authorized [id number] Receiving Office to Obtain Authorization 1 1 Encounter Details Date Type Department Care Team (Late st Contact Info) Description 01/17/2022 14:15 EDT Office Visit [facility] Spine Program - [place] [address] [place] [address] Ayush Shirley PA-C [address] [facility] [place] [address] Cervical spinal stenosis (Primary Dx); [...] naloxone (NARCAN) 4 mg/actuation nasal spray 1 [place] by nasal route as needed for Opioid [...] (Late st Contact Info) Description 05/14/2024 15:10 [facility] Radiology CT - Main [address] [address] documented as of this encounter Visit Diagnoses [...] Sig Dispensed Refills Start Date End Date fosinopriL-hydrochlorothi azide (MONOPRIL-HCT) 10-12.5 mg per tablet Take 1 Tablet by mouth daily. 01/07/2024 added in this encounter Care Teams Rhit Relationship Specialty Start Date End Date Alina Santacruz MD [address] [place] [phone] PCP - General 08/17/21 documented as of this encounter
--- OUTSIDE RECORDS SUMMARY | 2024-01-28 18:26 | XMS_ITS | Encounter Summary ---
Author Organization [facility] Address [address] [place] [address] Care Team Providers Care Under Water Assistant Name Role Phone Alina Santacruz MD Primary Care Provider [phone] Reason for Referral * Radiology Services (Routine/Next Available) - Authorization Not Required Specialty Diagnoses / Procedures Referred By Contac t Referred To Contact Radiology Diagnoses Cervical myelopathy ([facility]) Procedures MR CERVICAL SPINE WO CONTRAST Ayush Shirley PA-C [address] [place] [phone] [facility] Referral ID Status Reason Start Date Expiration Date Visits Requested Visits Authorized [id number] Authorization Not Required 12/07/2021 1 1 * Radiology Services (Routine/Next Available) - Authorization Not Required Specialty Diagnoses / Procedures Referred By Contac t Referred To Contact Radiology Diagnoses Chronic bilateral low back pain with left-sided sciatica Procedures MR LUMBAR SPINE WO CONTRAST Ayush Shirley PA-C [address] [place] [address] [facility] Referral ID Status Reason Start Date Expiration Date Visits Requested Visits Authorized [id number] Authorization Not Required 12/07/2021 1 1 Reason for Visit * Reason Comments Pain * Referral (Routine) - Receiving Office to Obtain Authorization Specialty Diagnoses / Procedures Referred By Contac t Referred To Contact Orthopedic Surgery Diagnoses Chronic back pain Alina Santacruz MD [address] [phone] [facility] Ortho Spine [address] [place] [address] Referral ID Status Reason Start Date Expiration Date Visits Requested Visits Authorized [id number] Receiving Office to Obtain Authorization 1 1 Encounter Details Date Type Department Care Team (Late st Contact Info) Description 12/07/2021 14:00 EDT Office Visit [facility] Spine Program - [place] [address] [place] [address] Ayush Shirley PA-C [address] [facility] [place] [address] Chronic bilateral low back pain [...] naloxone (NARCAN) 4 mg/actuation nasal spray 1 [place] by nasal route as needed for Opioid [...] st Contact Info) Description 05/14/2024 15:10 [facility] Radiology CT - Main [address] [address] documented as of this encounter [...] Ayush Shirley PA-C Skip MRI ORDERABLES * XR CERVICAL SPINE 4-5 [...] arthropathy. No apparent fracture. Ayush Shirley PA-C [facility] NG ORDERABLES * XR LUMBAR [...] compression fracture. Vascular calcifications are present. Ayush Hemond PA-C IMG DIAGNOSTIC IMAGI NG ORDERABLES documented [...] Sig Dispensed Refills Start Date End Date folic acid (FOLVITE) 1 mg tablet Take 1 Tablet by mouth daily. cyanocobalamin (VITAMIN B-12) 1,000 mcg tablet Take 1 Tablet by mouth daily. Cholecalciferol, Vitamin D3, 50 mcg capsule Take 1 Capsule by mouth daily. naloxone (NARCAN) 4 mg/actuation nasal spray 0.1 mL by nasal route as needed for Opioid Reversal. DULoxetine (CYMBALTA) 60 mg capsule Take 1 Capsule by mouth daily. pregabalin (LYRICA) 150 mg capsule Take 1 Capsule by mouth 2 times daily. atorvastatin (LIPITOR) 10 mg tablet Take 1 Tablet by mouth daily. LORazepam (ATIVAN) 1 mg tablet Take 1 Tablet by mouth every 4 hours as needed. tiotropium-olodateroL (STIOLTO RESPIMAT) 2.5-2.5 mcg/actuation inhaler Inhale as directed daily. morphine (MS CONTIN) 30 mg CR tablet Take 1 Tablet by mouth every 12 hours. clobetasoL (TEMOVATE) 0.05 % cream Apply topically 2 times daily. 01/07/2024 promethazine (PHENERGAN) 25 mg tablet Take 25 mg by mouth every 4 hours. 01/07/2024 albuterol 90 mcg/actuation inhaler Inhale 180 mcg as directed every 4 hours. 01/07/2024 lisinopril (PRINIVIL) 2.5 mg tablet Take 2.5 mg by mouth daily. 01/17/2022 amitriptyline (ELAVIL) 25 mg tablet Take 25 mg by mouth daily. 01/07/2024 added in this encounter Care Teams Under Water Assistant Relationship Specialty Start Date End Date Alina Santacruz MD [address] [place] [phone] PCP - General 08/17/21 documented as of this encounter
--- OUTSIDE RECORDS SUMMARY | 2024-01-28 18:26 | XMS_ITS | Encounter Summary ---
Author Organization [facility] Address [address] [place] [address] Care Team Providers Care Washerette Machine Operator Name Role Phone Alina Santacruz MD Primary Care Provider [phone] Encounter Details Date Type Department Care Team (Latest Contact Info) Description 12/07/2021 14:24 EDT Hospital Encounter [address] Xray [address] [place] [address] Discharge Disposition: Home or Self [...] (Late st Contact Info) Description 05/14/2024 15:10 [facility] Radiology CT - Main [address] [address] documented as of this encounter Procedures Procedure [...] on filedocumented in this encounter Care Teams Washerette Machine Operator Relationship Specialty Start Date End Date Alina Santacruz MD [address] [place] [phone] PCP - General 08/17/21 documented as of this encounter
--- OUTSIDE RECORDS SUMMARY | 2024-01-28 18:26 | XMS_ITS | Encounter Summary ---
Author Organization [facility] Address [address] [place] [address] Care Team Providers Care Fundraising Manager Name Role Phone Alina Santacruz MD Primary Care Provider [phone] Reason for Visit * Reason Comments Follow-up * Consult (Routine) - Authorization Not Required Specialty Diagnoses / Procedures Referred By Radha casey Referred To Contact [facility] Ep2 Hem/Onc [address] [place] [address] [facility] Ep2 Hem/Onc [address] [place] [phone] Referral ID Status Reason Start Date Expiration Date Visits Requested Visits Authorized [id number] Authorization Not Required 1 1 Encounter Details Date Type Department Care Team ([facility] Contact Info) Description 08/08/2022 9:00 EST Office Visit [facility] Hematology & Oncology - [address] [address] Iman Hodge, [facility] 111 [facility] [address] [place] [phone] Adjustment reaction with anxiety and depression (Primary [...] (Late st Contact Info) Description 05/14/2024 15:10 [facility] Appointment [facility] Radiology CT - Main [address] [address] documented as of this encounter Visit Diagnoses Diagnosis Adjustment reaction with anxiety and depression- Primary Adjustment disorder with mixed anxiety and depressed mood documented in this encounter Care Teams Fundraising Manager Relationship Specialty Start Date End Date Alina Santacruz MD [address] [place] [phone] PCP - General 08/17/21 documented as of this encounter
--- OUTSIDE RECORDS SUMMARY | 2024-01-28 18:26 | XMS_ITS | Encounter Summary ---
Author Organization [facility] Address [address] [place] [address] Care Team Providers Care Tool Crib Supervisor Name Role Phone Alian Santacruz MD Primary Care Provider [phone] Encounter Details Date Type Department Care Team (Latest Contact Info) Description 08/09/2022 Transcribe Orders OUTSIDE PROVIDER Alina Santacruz MD [address] [phone] Hyperkalemia (Primary Dx) Social History [...] (Late st Contact Info) Description 05/14/2024 15:10 [facility] Radiology CT - Main [address] [address] Scheduled Orders Name Type Priority Associated Diagnoses Orde r Schedule BASIC METABOLIC PANEL (BMP) Lab Routine Hyperkalemia Expected: 08/09/2022 (Approximate), Expires: 11/09/2022 documented as of this encounter Visit Diagnoses Diagnosis Hyperkalemia- Primary Hyperpotassemia documented in this encounter Care Teams Tool Crib Supervisor Relationship Specialty Start Date End Date Alina Santacruz MD [address] [facility] [place] [address] PCP - General 08/17/21 documented as of this encounter
--- OUTSIDE RECORDS SUMMARY | 2024-01-28 18:26 | XMS_ITS | Encounter Summary ---
Author Organization [facility] Address [address] [place] [address] Care Team Providers Care Adult Parole Officer Name Role Phone Ayush Ye MD Primary Care Provider Alina Santacruz MD Primary Care Provider [phone] Encounter Details Date Type Department Care Team (Late Contact Info) Description 07/16/2021 Lab Requisition [facility] Pathology & Laboratory Medicine - [address] [phone] Outr Resulting Lab, Provider Social History Tobacco [...] Contact Info) Description 05/14/2024 15:10 EST Appointment [facility] Radiology CT - [address] [address] documented as of this encounter Procedures Procedure Name Priority Date/Time Associated Diagnosis Comments HCV RNA DETECT QUANT Today 07/15/2021 11:00 EST HEPATITIS C AB W REFLEX TO HCV RNA BY PCR Routine 07/15/2021 11:00 EST documented in this encounter Results * HCV RNA DETECT QUANT (07/15/2021 11:00 EST) HCV RNA Qualitative Undetected Undetected 07/20/2021 11:44 EST [facility] Blood VENOUS BLOOD / Unknown 07/15/2021 11:00 EST 07/16/2021 21:30 EST Narrative [facility] - 07/20/2021 11:44 EST New platform in use 12/27/2020 The quantification range of this assay is 15 IU/mL to 100,000,000 IU/mL. Testing was performed using the Rafa HCV test ([employer] with the rafa [employer]0 System. Provider Outr Resulting Lab CHEMISTRY & BLOOD GAS ORDERABLES Performing Organization Address City/[facility]/ZIP Co de Phone Number [facility] [address] [place] [address] * (ABNORMAL) HEPATITIS C AB W REFLEX TO HCV RNA BY PCR (07/15/2021 11:00 EST) Pathologist [facility] Hep C Antibody Reactive(A ) Negative 07/18/2021 12:31 EST [facility] Comment: Supplemental testing for HCV RNA is ordered to rule out active HCV infection. Blood VENOUS BLOOD / Unknown 07/15/2021 11:00 EST 07/16/2021 21:30 EST Provider Outr Resulting Lab CHEMISTRY & BLOOD GAS ORDERABLES Performing Organization Address City/[facility]/ZIP Co de Phone Number [facility] [address] [place] [address] documented in this encounter Visit Diagnoses Not on filedocumented in this encounter Additional Health Concerns Infection Onset Date Last Indicated Resolved Time Rule-Out C. difficile 10/30/2022 10/30/20222022 13:17 EDT documented as of this encounter Care Teams Adult Parole Officer Relationship Specialty Start Date End Date Ayush Ye MD [address] [place] [phone] PCP - General Family Medicine - Primary Care 11/24/20 08/16/21 Alina Santacruz MD [address] [place] [phone] PCP - General 08/17/21 documented as of this encounter
--- OUTSIDE RECORDS SUMMARY | 2024-01-28 18:26 | XMS_ITS | Encounter Summary ---
Author Organization [facility] Address [address] [place] [address] Care Team Providers Care Chin Strap Cutter Name Role Phone Gemma Arreola NP Primary Care Provider Ayush Ye MD Primary Care Provider Alina Santacruz MD Primary Care Provider Encounter Details Date Type Department Care Team (Late Contact Info) Description 06/21/2020 Lab Requisition [facility] Pathology & Laboratory Medicine - [address] [address] Outr Resulting Lab, Provider Social History Tobacco [...] Upcoming Encounters Date Type Department Care Team ([facility] Contact Info) Description 05/14/2024 15:10 EST Appointment [facility] Radiology CT - [address] [address] documented as of this encounter Procedures Procedure Name Priority Date/Time Associated Diagnosis Comments ZZCOVID-19 TEST MM LAB PCR Today 06/21/2020 15:10 EST COVID-19 TESTING Routine 06/21/2020 15:1 0 EST documented in this encounter Results * COVID-19 TEST [facility] LAB PCR (06/21/2020 15:10 EST) Swab ENTIRE NASOPHARYNX / Unknown 06/21/2020 15:10 EST 06/21/2020 20:32 EST Provider Outr Resulting Lab MICROBIOLOGY - GENERAL ORDERABLES Performing Organization Address City/[facility] Co de Phone Number [facility] [address] [place] [address] * COVID-19 TESTING (06/21/2020 15:10 EST) COVID-19 rt-PCR Result Negative Negative 06/22/2020 13:23 EST [facility] Comment: Negative results do not preclude 2019-nCoV infection and should not be used as the sole basis for treatment or other patient management decisions. Negative results must be combined with clinical observations, patient history, and epidemiological information. This test was developed and its performance characteristics determined by [facility]. It has not been cleared [...] testing. This test is based on the [facility] COVID-19 Emergency Use Authorization (EUA) assay, with minor modification as defined by the FDA Performed on the [employer] 7 Flex RT-PCR System. Performing Lab [facility] Lab 06/22/2020 13:23 EST [facility] Swab 06/21/2020 15:1 0 EST 06/21/2020 20:32 EST Provider Outr Resulting Lab MICROBIOLOGY - GENERAL ORDERABLES Performing Organization Address City/[facility]/ZIP Co de Phone Number [facility] [address] [place] [address] documented in this encounter Visit Diagnoses Not on filedocumented in this encounter Additional Health Concerns Infection Onset Date Last Indicated Resolved Time Rule-Out C. difficile 10/30/2022 10/30/20222022 13:17 EDT documented as of this encounter Care Teams Chin Strap Cutter Relationship Specialty Start Date End Date Gemma Arreola, GEOPHYSICAL PROSPECTING SURVEYOR [address] [phone] PCP - General 11/25/10 11/23/20 Ayush Ye MD [address] [place] [phone] PCP - General Family Medicine - Primary Care 11/24/20 08/16/21 Alina Santacruz MD [address] [phone] PCP - General 08/17/21 documented as of this encounter
--- OUTSIDE RECORDS SUMMARY | 2024-01-28 18:26 | XMS_ITS | Encounter Summary ---
Author Organization [facility] Address [address] [place] [address] Care Team Providers Care Interface Analyst Name Role Phone Alina Santacruz MD Primary Care Provider [phone] Reason for Visit * Reason Comments Pain * Consult (See Order Priority) - Order Cancelled Specialty Diagnoses / Procedures Referred By Radha casey Referred To Contact Orthopedic Surgery Diagnoses Chronic bilateral low back pain with left-sided sciatica Ayush Shirley PA-C [address] [place] [address] [place] [phone] [facility] Ortho Spine [address] [place] [address] Referral ID Status Reason Start Date Expiration Date Visits Requested Visits Authorized [id number] Order Cancelled Specialty Services Required 01/17/2022 1 1 Encounter Details Date Type Department Care Team (Latest Contact Info) Description 02/20/2022 14:[address] [facility] Spine Program [place] [address] [place] [address] Rangel Sheriff MD [address] [place] [phone] Scoliosis of thoracolumbar spine, unspecified scoliosis [...] time/constant. She reports neurology work-up over in [facility] previously but we are not privy [...] exam, She has bilateral 4/5 weakness of grain receiver and interossei. Biceps/triceps/deltoid 5/5 bilaterally On sensory [...] had neurology w/u for this previously at [facility] but we do not have those records.On exam, she has decreased sensation to light touch mostly of the left hand and entire LLE. Motor exam relatively unremarkable although there is perhaps 4/5 weakness of bilateral grain receiver/interossei. Gayle positive bilaterally and patellar reflexes hyperactive [...] had prior spine and neurology workups at [facility] and in [facility] including EMG. She is taking narcotic [...] think her L5 foraminal stenosis is the pile driver engineer of her symptoms, nor do I see [...] (Late st Contact Info) Description 05/14/2024 15:10 [facility] Radiology CT - [address] [id number] documented as of this encounter Visit Diagnoses Diagnosis Scoliosis of thoracolumbar spine, unspecified scoliosis type- Primary Leg pain, diffuse, left documented in this encounter Care Teams Interface Analyst Relationship Specialty Start Date End Date Alina Santacruz MD [address] [place] [phone] PCP - General 08/17/21 documented as of this encounter
--- OUTSIDE RECORDS SUMMARY | 2024-01-28 18:26 | XMS_ITS | Encounter Summary ---
Author Organization [facility] Address [address] [place] [address] Care Team Providers Care Oil Speculator Name Role Phone Gemma Arreola NP Primary Care Provider Ayush Ye MD Primary Care Provider Alina Santacruz MD Primary Care Provider Encounter Details Date Type Department Care Team (Late Contact Info) Description 06/18/2020 Lab Requisition [facility] Pathology & Laboratory Medicine - [address] [address] Outr Resulting Lab, Provider Social History Tobacco [...] Upcoming Encounters Date Type Department Care Team ([facility] Contact Info) Description 05/14/2024 15:10 EST Appointment [facility] Radiology CT - [address] [address] documented as of this encounter Procedures Procedure Name Priority Date/Time Associated Diagnosis Comments ZZCOVID-19 TEST MM LAB PCR Today 06/18/2020 15:00 EST COVID-19 TESTING Routine 06/18/2020 15:0 0 EST documented in this encounter Results * COVID-19 TEST [facility] LAB PCR (06/18/2020 15:00 EST) Swab ENTIRE NASOPHARYNX / Unknown 06/18/2020 15:00 EST 06/18/2020 20:52 EST Provider Outr Resulting Lab MICROBIOLOGY - GENERAL ORDERABLES Performing Organization Address [facility] Co de Phone Number [facility] [address] [place] [address] * COVID-19 TESTING (06/18/2020 15:00 EST) COVID-19 rt-PCR Result Negative Negative 06/19/2020 16:37 EST [facility] Comment: Negative results do not preclude 2019-nCoV infection and should not be used as the sole basis for treatment or other patient management decisions. Negative results must be combined with clinical observations, patient history, and epidemiological information. This test was developed and its performance characteristics determined by [facility]. It has not been cleared or [...] testing. This test is based on the [facility] COVID-19 Emergency Use Authorization (EUA) assay, with minor modification as defined by the FDA Performed on the [employer] 7 Flex RT-PCR System. Performing Lab [facility] Lab 06/19/2020 16:37 EST [facility] Swab 06/18/2020 15:0 0 EST 06/18/2020 20:52 EST Provider Outr Resulting Lab MICROBIOLOGY - GENERAL ORDERABLES Performing Organization Address City/[facility]/ZIP Co de Phone Number [facility] [address] [place] [address] documented in this encounter Visit Diagnoses Not on filedocumented in this encounter Additional Health Concerns Infection Onset Date Last Indicated Resolved Time Rule-Out C. difficile 10/30/2022 10/30/20222022 13:17 EDT documented as of this encounter Care Teams Oil Speculator Relationship Specialty Start Date End Date Gemma Arreola, ENTRY [employer]EVEL [address] [phone] PCP - General 11/25/10 11/23/20 Ayush Ye MD [address] [place] [phone] PCP - General Family Medicine - Primary Care 11/24/20 08/16/21 Alina Santacruz MD [address] [phone] PCP - General 08/17/21 documented as of this encounter
--- OUTSIDE RECORDS SUMMARY | 2024-01-28 18:26 | XMS_ITS | Encounter Summary ---
Author Organization [facility] Address [address] [place] [id number] Care Team Providers Care Skiver Blockers Name Role Phone Alina Santacruz MD Primary Care Provider [phone] Encounter Details Date Type Department Care Team (Late Contact Info) Description 07/26/2022 Transcribe Orders OUTSIDE PROVIDER Alina Santacruz MD [address] [phone] Hypertension, unspecified type (Primary Dx) [...] (Late Contact Info) Description 05/14/2024 15:10 EST [facility] Radiology DC - [address] [place] [address] [place] [address] documented as of this encounter Results * (ABNORMAL) BASIC METABOLIC PANEL (BMP) (08/03/2022 9:21 EST) Sodium 141 136 - 145 mmol/L 08/03/2022 10:23 EST [facility] Potassium 5.6(H) 3.5 - 5.0 mmol/L 08/03/2022 10:23 EST [facility] Chloride 102 96 - 110 mmol/L 08/03/2022 10:23 [facility] CO2 Total 30 22 - 32 mmol/L 08/03/2022 10:23 [facility] Anion Gap 9 5 - 14 08/03/2022 10:23 [facility] Glucose 80 70 - 100 mg/dL 08/03/2022 10:23 [facility] Calcium 9.4 8.5 - 10.5 mg/dL 08/03/2022 10:23 [facility] BUN 18 10 - 26 mg/dL 08/03/2022 10:23 [facility] Creatinine 0.97 0.52 - 1.04 mg/dL 08/03/2022 10:23 [facility] eGFR 65 >60 mL/min/1.73 m2 08/03/2022 10:23 [facility] Blood VENOUS BLOOD / Unknown Venipuncture / Unknown 08/03/2022 9:21 EST 08/03/2022 9:55 EST Alina Santacruz MD CHEMISTRY & BLOOD GA S ORDERABLES [facility] [address] [place] [address] documented in this encounter Visit Diagnoses Diagnosis Hypertension, unspecified type- Primary documented in this encounter Care Teams Skiver Blockers Relationship Specialty Start Date End Date Alina Santacruz MD [address] [place] [phone] PCP - General 08/17/21 documented as of this encounter
--- OUTSIDE RECORDS SUMMARY | 2024-01-28 18:26 | XMS_ITS | Encounter Summary ---
Author Organization [facility] Address [address] [place] [address] Care Team Providers Care Mud Jack Nozzleman Name Role Phone Alina Santacruz MD Primary Care Provider [phone] Reason for Visit * Reason Comments New Patient Visit * Radiology Services (Routine/Next Available) - Specialty Report Received Specialty Diagnoses / Procedures Referred By Radha casey Referred To Contact Diagnoses Vitamin D deficiency Osteopenia of multiple sites Procedures DXA DUAL XRAY ABSORPTIOMETRY FOR BONE DENSITY ([facility] PERFORMED) Alina Santacruz MD [address] [phone] Referral ID Status Reason Start Date Expiration Date V isits Requested Visits Authorized [id number] Specialty Report Received 10/10/2021 1 1 Encounter Details Date Type Department Care Team (Latest Contact Info) Description 11/15/2021 14:50 EDT Procedure visit [facility] Endocrinology - [address] [phone] Bethel Haynes MD Post-menopausal (Primary Dx); Vitamin [...] (Late st Contact Info) Description 05/14/2024 15:10 [facility] [place] [address] documented as of this encounter Procedures Procedure Name Priority Date/Time Associated Diagnosis Comments DXA DUAL XRAY ABSORPTIOMETRY FOR BONE DENSITY ([facility] PERFORMED) Routine 11/16/2021 Vitamin D deficiency Osteopenia [...] osteoporosis documented in this encounter Care Teams Mud Jack Nozzleman Relationship Specialty Start Date End Date Alina Santacruz MD [address] [place] [phone] PCP - General 08/17/21 documented as of this encounter
--- OUTSIDE RECORDS SUMMARY | 2024-01-28 18:26 | XMS_ITS | Encounter Summary ---
Author Organization [facility] Address [address] [place] [address] Care Team Providers Care Cash Checker Name Role Phone Alina Santacruz MD Primary Care Provider [phone] Reason for Visit * Reason Comments Rectal Bleeding Pt reports hal blo od in BM this morning. Bowel movements have been otherwise normal. Endorses weeks to months of dizziness and RLQ abdominal pain/pressure. Normotensive, HR 80 in triage. Encounter Details Date Type Department Care Team ([facility] st Contact Info) Description 10/30/2022 5:44 EDT - 10/30/2022 10:47 EDT Emergency [facility] Emergency Department - Main [address] [address] Alex Jasmine MD [address] [place] [id number] Hematochezia (Primary Dx); Cirrhosis of liver without [...] through Care Everywhere. * GI Bleeding: Lower (Sinhala) documented in this encounter Medications at Time [...] Take 25 mg by mouth daily. 01/07/2024 amoxicillin-clavulanat e (AUGMENTIN) 875-125 mg per tablet Take 1 Tablet by mouth 2 times daily for 7 days. 14 Tablet 10/30/2022 11/06/2022 candesartan (ATACAND) 4 mg tablet Take 4 mg by mouth daily. 01/07/2024 clobetasoL (TEMOVATE) 0.05 % cream Apply topically 2 times daily. 01/07/2024 fosinopriL-hydrochloro thiazide (MONOPRIL-HCT) 10-12.5 mg per tablet Take 1 Tablet by mouth daily. 01/07/2024 promethazine (PHENERGAN) 25 mg tablet Take 25 mg by mouth every 4 hours. 01/07/2024 documented as of this encounter Ordered Prescriptions Prescription Sig Dispensed Refills Start Date End Da te amoxicillin-clavulanate (AUGMENTIN) 875-125 mg per tablet Take 1 Tablet by mouth 2 times daily for 7 days. 14 Tablet 10/30/2022 11/06/2022 documented in this encounter Discharge Disposition Disposition Code Departure Means Destination Home or Self Mcfp documented in this encounter ED Notes * Chinyere Garza, RN - 10/30/2022 6532 EDT MD aware of stool. Stool small and gelatin [...] to return to the emergency department [JK] 0823 CT with a small amount of stranding sales representative jewelry of colitis. The patient does not have [...] (Late st Contact Info) Description 05/14/2024 15:10 [facility] Radiology CT - [address] [address] documented as of this encounter Procedures Procedure [...] difficile PCR Negative Negative 10/30/2022 13:17 EDT [facility] Feces SPECIMEN FROM RECTUM / Unknown Stool Collect / Unknown 10/30/2022 9:43 EDT 10/30/2022 10:53 EDT Alex Jasmine MD MICROBIOLOGY - GENER AL ORDERABLES Performing Organization Address City/[facility]/ZIP Co de Phone Number [facility] [address] [place] [address] * (ABNORMAL) COMPLETE BLOOD COUNT (10/30/2022 9:43 EDT) WBC 7.57 4.00 - 12.40 K/cmm 10/30/2022 10:01 EDT [facility] RBC 3.30(L) 3.86 - 5.04 M/cmm 10/30/2022 10:01 T [facility] Hemoglobin 10.5(L) 11.6 - 15.2 g/dL 10/30/2022 10:01 T [facility] HCT 30.2(L) 34.9 - 44.4 % 10/30/2022 10:01 [facility] MCV 92 81 - 98 fL 10/30/2022 10:01 T [facility] MCH 31.8 26.7 - 33.3 pg 10/30/2022 10:01 [facility] MCHC 34.8 32.1 - 35.9 g/dL 10/30/2022 10:01 [facility] RDW-CV 13.8 <14.7 % 10/30/2022 10:01 [facility] RDW-SD 46.6 <50.4 fl 10/30/2022 10:01 [facility] PLT 206 141 - 377 K/cmm 10/30/2022 10:01 [facility] MPV 10.2 9.5 - 12.7 fL 10/30/2022 10:01 [facility] Blood VENOUS BLOOD / Unknown Venipuncture / Unknown 10/30/2022 9:43 EDT 10/30/2022 9:51 EDT Alex Jasmine MD HEMATOLOGY & PF4 ORD ERABLES [facility] [address] [place] [address] * CT ABDOMEN PELVIS W CONTRAST (10/30/2022 [...] No concerning focal osseous lesion is identified. Auto Body Shop Manager: No additional findings. Procedure Note Corey Castillo [...] pelvis. No concerning focal osseous lesion isidentified. Auto Body Shop Manager: No additional findings. IMPRESSION 1. Findings of colitis involving the descending and sigmoid colon whichis favored to be of an infectious or less likely inflammatory or ischemicetiology. No evidence of stenosis of the proximal abdominal vasculature. 2. Atherosclerosis. I have personally reviewed the images and the above interpretation andagree with the findings. Alex Jasmine MD IM CT ORDERABLES * TYPE AND SCREEN (10/30/2022 6:35 EDT) ABO A 10/30/2022 7:43 T [facility] Rh Factor Positive 10/30/2022 7:43 T [facility] Antibody Screen Negative 10/30/2022 7:43 [facility] Specimen Expires: 11/02/2022 @ 23:59 10/30/2022 7:43 [facility] Blood VENOUS BLOOD / Unknown Venipuncture / Unknown 10/30/2022 6:35 EDT 10/30/2022 7:08 EDT Alex Jasmine MD BLOOD BANK TESTS Performing Organization Address [facility] [[email or web address]] Co de Phone Number [facility] [address] [place] [address] * PROTIME (10/30/2022 6:35 EDT) [facility] I.N.R. 1.0 0.9 - 1.1 Ratio 10/30/2022 6:55 EDT [facility] Pro Time 11.6 9.7 - 12.8 secs 10/30/2022 6:55 EDT [facility] Blood VENOUS BLOOD / Unknown Venipuncture / Unknown 10/30/2022 6:35 EDT 10/30/2022 6:39 EDT Narrative [facility] - 10/30/2022 6:55 EDT Moderate Intensity Coumadin INR = 2.0-3.0 Adjustments in anticoagulant therapy dose should be based on the INR and NOT on the Protime. Authorizing Provider Result Cheyenne Jasmine MD HEMATOLOGY & PF4 ORD ERABLES Performing Organization Address [facility] [[email or web address]] Co de Phone Number [facility] [address] [place] [address] * (ABNORMAL) COMPREHENSIVE METABOLIC PANEL (CMP) (10/30/2022 6:35 EDT) [facility] Sodium 134(L) 136 - 145 mmol/L 10/30/2022 6:59 EDT [facility] Potassium 5.0 3.5 - 5.0 mmol/L 10/30/2022 6:59 EDT [facility] Chloride 101 96 - 110 mmol/L 10/30/2022 6:59 EDT [facility] CO2 Total 26 22 - 32 mmol/L 10/30/2022 6:59 EDT [facility] Glucose 96 70 - 100 mg/dl 10/30/2022 6:59 EDT [facility] BUN 24 10 - 26 mg/dL 10/30/2022 6:59 [facility] Creatinine 0.99 0.52 - 1.04 mg/dL 10/30/2022 6:59 [facility] eGFR 63 >60 mL/min/1.7 3m2 10/30/2022 6:59 [facility] Total Protein 7.2 6.3 - 8.2 g/dL 10/30/2022 6:59 [facility] Albumin 4.1 3.4 - 4.9 g/dL 10/30/2022 6:59 [facility] Alkaline Phosphatase 67 38 - 126 U/L 10/30/2022 6:59 [facility] AST 42 15 - 46 U/L 10/30/2022 6:59 [facility] ALT 35(H) <35 U/L 10/30/2022 6:59 [facility] Bilirubin, Total <0.5 <1.4 mg/dL 10/31/19 6:59 [facility] Calcium 8.8 8.5 - 10.5 mg/dL 10/30/2022 6:59 [facility] Albumin/Globulin Ratio 1.3 1.0 - 2.5 10/30/2022 6:59 [facility] Anion Gap 7 5 - 14 mmol/L 10/30/2022 6:59 [facility] Blood VENOUS BLOOD / Unknown Venipuncture / Unknown 10/30/2022 6:35 EDT 10/30/2022 6:39 EDT Alex Jasmine MD CHEMISTRY & BLOOD GA S ORDERABLES [facility] [address] [place] [address] * (ABNORMAL) COMPLETE BLOOD COUNT AND DIFFERENTIAL (10/30/2022 6:35 EDT) WBC 7.42 4.00 - 12.40 K/cmm 10/30/2022 6:56 [facility] RBC 3.58(L) 3.86 - 5.04 M/cmm 10/30/2022 6:56 [facility] Hemoglobin 11.1(L) 11.6 - 15.2 g/dL 10/30/2022 6:56 [facility] HCT 33.1(L) 34.9 - 44.4 % 10/30/2022 6:56 [facility] MCV 93 81 - 98 fL 10/30/2022 6:56 [facility] MCH 31.0 26.7 - 33.3 pg 10/30/2022 6:56 [facility] MCHC 33.5 32.1 - 35.9 g/dL 10/30/2022 6:56 [facility] RDW-CV 13.7 <14.7 % 10/30/2022 6:56 [facility] RDW-SD 46.9 <50.4 fl 10/30/2022 6:56 [facility] PLT 221 141 - 377 K/cmm 10/30/2022 6:56 [facility] MPV 10.4 9.5 - 12.7 fL 10/30/2022 6:56 [facility] % Neutrophils 65.6 % 10/30/2022 6:56 [facility] % Lymphocytes 21.2 % 10/30/2022 6:56 [facility] % Monocytes 10.5 % 10/30/2022 6:56 [facility] % Eosinophils 1.9 % 10/30/2022 6:56 [facility] % Basophils 0.4 % 10/30/2022 6:56 [facility] % Immature Grans 0.4 % 10/31/19 6:56 [facility] Absolute Neutrophils 4.87 2.20 - 8.85 K/cmm 10/30/2022 6:56 [facility] Absolute Lymphocytes 1.57 1.09 - 3.30 K/cmm 10/30/2022 6:56 EDT [facility] Absolute Monocytes 0.78 0.10 - 0.80 K/cm 10/30/2022 6:56 EDT [facility] Absolute Eosinophils 0.14 0.03 - 0.61 K/cm 10/30/2022 6:56 EDT [facility] ABS Basophils 0.03 0.01 - 0.11 K/[facility] 10/30/2022 6:56 T [facility] Absolute Immature Grans 0.03 0.00 - 0.06 K/[facility] 10/30/2022 6:56 EDT [facility] Type of Differential: Auto 10/30/2022 6:56 T [facility] Blood VENOUS BLOOD / Unknown Venipuncture / Unknown 10/30/2022 6:35 EDT 10/30/2022 6:39 EDT Alex Jasmine MD PACKAGES & DNA PROBE ORDERABLES [facility] [address] [place] [address] documented in this encounter Visit Diagnoses Diagnosis [...] 1 dose, On Sun10/30/22 at 0845, STAT Given 10/30/2022 9:23 EDT [...] Take 4 mg by mouth daily. 01/07/2024 added in this encounter Active and Recently [...] Sun10/30/22 at 0806, Routine, Imaging Protocol Orders 0806 (Given - Provid er: James Rendon) morphine (MS IR) tablet 30 mg (COMPLETED) 30 mg, oral, NOW X1, 1 dose, On Sun10/30/22 at 0745, STAT 0752 (Given - Provid er: Diya Gonzalez RN) documented in this encounter Additional Health Concerns Infection Onset Date Last Indicated Resolved Time Rule-Out C. difficile 10/30/2022 10/30/20222022 13:17 EDT documented as of this encounter Care Teams Cash Checker Relationship Specialty Start Date End Date Alina Santacruz MD [address] [place] [phone] PCP - General 08/17/21 documented as of this encounter
--- OUTSIDE RECORDS SUMMARY | 2024-01-28 18:26 | XMS_ITS | Encounter Summary ---
Author Organization [facility] Address [address] [place] [address] Care Team Providers Care Stucco Applicator Name Role Phone Ayush Ye MD Primary Care Provider Reason for Visit * Reason Onset Date Comments Appointment Related 04/25/2021 Encounter Details Date Type Department Care Team (Late Contact Info) Description 04/[facility] Mammography - [address] [address] Merline Jean Appointment Related Social History Tobacco [...] EST [facility] Radiology CT - [address] [id number] documented as of this encounter Visit Diagnoses Not on filedocumented in this encounter Care Teams Stucco Applicator Relationship Specialty Start Date End Date Ayush Ye MD [address] [place] [phone] PCP - General Family Medicine - Primary Care 11/24/20 08/16/21 documented as of this encounter
--- OUTSIDE RECORDS SUMMARY | 2024-01-28 18:26 | XMS_ITS | Encounter Summary ---
Author Organization [facility] Address [address] [place] [address] Care Team Providers Care Sterile Supply Technician Name Role Phone Alina Santacruz MD Primary Care Provider [phone] Reason for Referral * Radiology Services (Routine/Next Available) - Authorization Not Required Specialty Diagnoses / Procedures Referred By Contac t Referred To Contact Radiology Diagnoses Chronic bilateral low back pain with left-sided sciatica Procedures MR LUMBAR SPINE WO CONTRAST Ayush Shirley PA-C [address] [place] [address] [facility] Referral ID Status Reason Start Date Expiration Date Visits Requested Visits Authorized [id number] Authorization Not Required 12/07/2021 1 1 Reason for Visit * Radiology Services (Routine/Next Available) - Authorization Not Required Specialty Diagnoses / Procedures Referred By Contac t Referred To Contact Radiology Diagnoses Chronic bilateral low back pain with left-sided sciatica Procedures MR LUMBAR SPINE WO CONTRAST Ayush Shirley PA-C [address] [place] [address] [facility] Referral ID Status Reason Start Date Expiration Date Visits Requested Visits Authorized [id number] Authorization Not Required 12/07/2021 1 1 Encounter Details Date Type Department Care Team (Latest Contact Info) Description 12/28/2021 15:17 EDT Hospital Encounter [facility] MRI [address] [place] [address] Chronic bilateral low back pain [...] (Late st Contact Info) Description 05/14/2024 15:10 [facility] Radiology CT - [address] [address] documented as of this encounter Procedures Procedure [...] sciatica documented in this encounter Care Teams Sterile Supply Technician Relationship Specialty Start Date End Date Alina Santacruz MD [address] [place] [phone] PCP - General 08/17/21 documented as of this encounter
--- OUTSIDE RECORDS SUMMARY | 2024-01-28 18:26 | XMS_ITS | Encounter Summary ---
Author Organization [facility] Address [address] [place] [address] Care Team Providers Care Record Pressman Name Role Phone Gemma Arreola NP Primary Care Provider [phone] Reason for Visit * (Routine) - Receiving Office to Obtain Authorization Specialty Diagnoses / Procedures Referred By Radha casey Referred To Contact Procedures US OUTSIDE IMAGES BREAST Unknown, Provider, Referral ID Status Reason Start Date Expiration Date Visits Requested Visits Authorized [id number] Receiving Office to Obtain Authorization 01/01/2021 1 1 Encounter Details Date Type Department Care Team (Latest Contact Info) Description 05/26/2020 Hospital Encounter [facility] Secondary Reads [place] Discharge Disposition: Home [...] (Late st Contact Info) Description 05/14/2024 15:10 [facility] Radiology CT - Main [place] [address] [place], [place] [address] documented as of this encounter Procedures Procedure [...] on filedocumented in this encounter Care Teams Record Pressman Relationship Specialty Start Date End Date Gemma Arreola NP [address] [place] [phone] PCP - General 11/25/10 11/23/20 documented as of this encounter
--- OUTSIDE RECORDS SUMMARY | 2024-01-28 18:26 | XMS_ITS | Encounter Summary ---
Author Organization [facility] Address [address] [place] [address] Care Team Providers Care Mother Tester Name Role Phone Alina Santacruz MD Primary Care Provider [phone] Encounter Details Date Type Department Care Team (Latest Contact Info) Description 12/07/2021 14:25 EDT - 12/07/2021 23:59 EDT [address] Encounter [address] X[address] [place] [address] Discharge Disposition: Home or Self [...] (Late st Contact Info) Description 05/14/2024 15:10 [facility] [place] [address] documented as of this encounter Procedures Procedure [...] on filedocumented in this encounter Care Teams Mother Tester Relationship Specialty Start Date End Date Alina Santacruz MD [address] [place] [phone] PCP - General 08/17/21 documented as of this encounter
--- OUTSIDE RECORDS SUMMARY | 2024-01-28 18:26 | XMS_ITS | Encounter Summary ---
Author Organization [facility] Address [address] [place] [address] Care Team Providers Care Pin Maker Name Role Phone Alina Santacruz MD Primary Care Provider [phone] Reason for Visit * Reason Comments Follow-up * Consult (Routine) - Authorization Not Required Specialty Diagnoses / Procedures Referred By Radha casey Referred To Contact [facility] Ep2 Hem/Onc [address] [place] [address] [facility] Ep2 Hem/Onc [address] [place] [address] Referral ID Status Reason Start Date Expiration Date Visits Requested Visits Authorized [id number] Authorization Not Required 1 1 Encounter Details Date Type Department Care Team ([facility] Contact Info) Description 09/05/2022 14:00 EDT Office Visit [facility] Hematology & Oncology - [address] [address] Iman Hodge, [facility] [address] [facility] [address] [place] [phone] Adjustment reaction with anxiety and depression (Primary [...] Contact Info) Description 05/14/2024 15:10 EST Appointment [facility] Radiology CT - Main [address] [address] documented as of this encounter Visit Diagnoses Diagnosis Adjustment reaction with anxiety and depression- Primary Adjustment disorder with mixed anxiety and depressed mood documented in this encounter Care Teams Pin Maker Relationship Specialty Start Date End Date Alina Santacruz MD [address] [place] [phone] PCP - General 08/17/21 documented as of this encounter
--- OUTSIDE RECORDS SUMMARY | 2024-01-28 18:26 | XMS_ITS | Encounter Summary ---
Author Organization [facility] Address [address] [place] [address] Care Team Providers Care Baling Machine Tender Name Role Phone Alina Santacruz MD Primary Care Provider [phone] Reason for Visit * Reason Onset Date Comments Appointment Related 08/23/2021 Encounter Details Date Type Department Care Team (Late Contact Info) Description 08/23/2021 Telephone [facility] Cardiology - [address] [place] [phone] Ericka Price, RN [address] [place] [address] Appointment Related Social History Tobacco Use Types [...] Team (Late Contact Info) Description 05/14/2024 15:10 [facility] Radiology CT - [address] [address] documented as of this encounter Visit Diagnoses Not on filedocumented in this encounter Care Teams Baling Machine Tender Relationship Specialty Start Date End Date Alina Santacruz MD [address] [place] [phone] PCP - General 08/17/21 documented as of this encounter
--- OUTSIDE RECORDS SUMMARY | 2024-01-28 18:26 | XMS_ITS | Encounter Summary ---
Author Organization [facility] Address [address] [place] [address] Care Team Providers Care Action Finisher Name Role Phone Alina Santacruz MD Primary Care Provider [phone] Encounter Details Date Type Department Care Team (Latest Contact Info) Description 02/20/2022 14:00 EDT - 02/20/2022 14:04 EDT Hospital Encounter [address] Xray [address] [place] [address] Low back pain, unspecified back [...] (Late st Contact Info) Description 05/14/2024 15:10 [facility] Radiology CT - Main [address] [address] documented as of this encounter Procedures Procedure [...] present documented in this encounter Care Teams Action Finisher Relationship Specialty Start Date End Date Alina Santacruz MD [address] [place] [phone] PCP - General 08/17/21 documented as of this encounter
--- OUTSIDE RECORDS SUMMARY | 2024-01-28 18:26 | XMS_ITS | Encounter Summary ---
Author Organization [facility] Address [address] [place] [address] Care Team Providers Care Communications Equipment Supervisor Name Role Phone Alina Santacruz MD Primary Care Provider [phone] Reason for Referral * Radiology Services (Routine/Next Available) - Specialty Report Received Specialty Diagnoses / Procedures Referred By Contaudi t Referred To Contact Diagnoses Vitamin D deficiency Osteopenia of multiple sites Procedures DXA DUAL XRAY ABSORPTIOMETRY FOR BONE DENSITY [facility]) Alina Santacruz MD [address] [address] Referral ID Status Reason Start Date Expiration Date V isits Requested Visits Authorized [id number] Specialty Report Received 10/10/2021 1 1 Encounter Details Date Type Department Care Team (Late st Contact Info) Description 10/10/2021 Orders Only [facility] Endocrinology - [address] [address] Alina Santacruz MD [address] [phone] Osteopenia of multiple sites (Primary [...] (Late st Contact Info) Description 05/14/2024 15:10 [facility] Radiology CT - [address] [address] documented as of this encounter Results * DXA DUAL XRAY ABSORPTIOMETRY FOR BONE DENSITY ([facility] PERFORMED) (11/16/2021) DEXA Bone Density DEXA Bone Density, External Anatomical Region Laterality Modality Other Alina Santacruz MD IMG DEXA ORDERABLES documented in this encounter Visit Diagnoses Diagnosis Osteopenia of multiple sites- Primary Vitamin D deficiency Unspecified vitamin D deficiency documented in this encounter Care Teams Communications Equipment Supervisor Relationship Specialty Start Date End Date Alina Santacruz MD [address] [place] [phone] PCP - General 08/17/21 documented as of this encounter
--- OUTSIDE RECORDS SUMMARY | 2024-01-28 18:27 | XMS_ITS | Encounter Summary ---
Author Organization [facility] Address [address] [place] [address] Care Team Providers Care Car Painter Name Role Phone Gemma Arreola SPEECH [employer]ANG PATH Primary Care Provider [phone] Encounter Details Date Type Department Care Team (Late st Contact Info) Description 04/12/2016 Results Only [facility] [phone] Lexx Tamez, DO [address] [phone] Social History Tobacco Use Types Packs/Day Years Used Date Smoking Tobacco: Never Assessed Sex and Gender Information Value Date Recorded Sex Assigned at Not on file Gender Identity Female 08/17/2021 11:20 EDT Sexual Orientation Not on file documented as of this encounter Plan of Treatment Upcoming Encounters Date Type Department Care Team (Late Contact Info) Description 05/14/2024 15:10 EST [facility] Radiology CT - Main [place] [address] [place] [address] documented as of this encounter Procedures Procedure [...] ? DANIELLE GILMAN ? Accession #: ? [id number] ? : ? 1955 (Age: 61) ??F [...] 0.2 cm). Entirely submitted in 1. Porsche Rice 04/14/2016 8:17 AM End of Report [facility] 04/12/2016 18:2 9 EST 04/13/2016 18:29 EST Lexx Tamez DO PATHOLOGY ORDER LUCIA [facility] [address] [place] [address] documented in this encounter Visit Diagnoses Not on filedocumented in this encounter Care Teams Car Painter Relationship Specialty Start Date End Date Gemma Arreola NP [address] [place] [phone] PCP - General 11/25/10 11/23/20 documented as of this encounter
--- OUTSIDE RECORDS SUMMARY | 2024-01-28 18:27 | XMS_ITS | Encounter Summary ---
Author Organization [facility] Address [address] [place] [address] Care Team Providers Care Account Services Specialist Name Role Phone Gemma Arreola NP Primary Care Provider [phone] Reason for Visit * (Routine) - Receiving Office to Obtain Authorization Specialty Diagnoses / Procedures Referred By Radha casey Referred To Contact Procedures MA BREAST OUTSIDE IMAGES Unknown, Provider, Referral ID Status Reason Start Date Expiration Date Visits Requested Visits Authorized [id number] Receiving Office to Obtain Authorization 01/01/2021 1 1 Encounter Details Date Type Department Care Team (Latest Contact Info) Description 05/19/2020 - 05/19/2020 23:59 EST Hospital Encounter [facility] Secondary Reads [place] Discharge Disposition: Home or [...] st Contact Info) Description 05/14/2024 15:10 EST [facility] Radiology [facility] - Main [place] [address] [place], [place] [phone] documented as of this encounter Procedures Procedure [...] on filedocumented in this encounter Care Teams Account Services Specialist Relationship Specialty Start Date End Date Gemma Arreola, SAMPLE STEAMER [address] [place] [phone] PCP - General 11/25/10 11/23/20 documented as of this encounter
--- OUTSIDE RECORDS SUMMARY | 2024-01-28 18:27 | XMS_ITS | Encounter Summary ---
Author Organization [facility] Address [address] [place] [address] Care Team Providers Care News Specialist Name Role Phone Unknown, Provider Primary Care Provider [phone] Encounter Details Date Type Department Care Team ([facility] Contact Info) Description 11/23/2010 Results Only [facility] Laboratory Services - [facility] ([facility]) [address] [place], [place] [address] Chava Murdock MD [address] [place] [id number] Social History Tobacco Use Types Packs/Day Years Used Date Smoking Tobacco: Never Assessed Sex and Gender Information Value Date Recorded Sex Assigned at Not on file Gender Identity Female 08/17/2021 11:20 EDT Sexual Orientation Not on file documented as of this encounter Plan of Treatment Upcoming Encounters Date Type Department Care Team ([facility] Contact Info) Description 05/14/2024 15:10 [facility] Radiology [place] - [facility] [address] [place], [place] [address] documented as of this encounter Procedures Procedure [...] ? DANIELLE GILMAN ? Accession #: ? [id number] ? : ? 1955 (Age: 55) ??F ? Collect Date: ? 11/23/2010 ? Location: ? [facility] ? Receive Date: ? 11/24/2010 ? Provider: CHAVA MURDOCK MD ? Copy to: NAYELY LAN MD ? Final Pathologic Diagnosis: ? Oral mucosa, palate, biopsy: ? 1. ?Fragments of benign squamous mucosa with reactive changes and ? evidence of erosion. ?- PAS stain for micro-organisms is negative. See comment. ? Comment: ? Appropriate controls were used. (Dr. Stahl). ? Document reviewed and electronically signed by: ? ABDELMONEM ELHOSSEINY MD ? Report ??Date: 11/28/2010 16:59 ? [...] submitted in a single cassette following filtration. ??/kmdawn ? End of Report ? [facility] 11/23/2010 11/24/2010 9:0 0 EDT Chava Murdock MD PATHOLOGY ORDERABLES [facility] [address] [place] [address] documented in this encounter Visit Diagnoses Not on filedocumented in this encounter Care Teams News Specialist Relationship Specialty Start Date End Date Unknown, Provider, PCP - General 11/24/10 11/24/10 documented as of this encounter
--- OUTSIDE RECORDS SUMMARY | 2024-01-28 18:27 | XMS_ITS | Encounter Summary ---
Author Organization [facility] Address [address] [place] [address] Care Team Providers Care Director Professional Services Name Role Phone Gemma Arreola WELL LOGGING OPERATOR MUD ANALYSIS Primary Care Provider [phone] Reason for Visit * Reason Onset Date Comments Appointment Related 09/10/2018 Encounter Details Date Type Department Care Team (Late Contact Info) Description 09/10/2018 Telephone [facility] Neurology - [address] [phone] Unknown, Provider, Appointment Related Social History Tobacco [...] Upcoming Encounters Date Type Department Care Team ([facility] Contact Info) Description 05/14/2024 15:10 EST [facility] Radiology CT - Main [place] [address] [place] [address] documented as of this encounter Visit Diagnoses Not on filedocumented in this encounter Care Teams Director Professional Services Relationship Specialty Start Date End Date Gemma Arreola, WELL LOGGING OPERATOR MUD ANALYSIS [address] [place] [phone] PCP - General 11/25/10 11/23/20 documented as of this encounter
--- OUTSIDE RECORDS SUMMARY | 2024-01-28 18:27 | XMS_ITS | Encounter Summary ---
Author Organization [facility] Address [address] [place] [address] Care Team Providers Care Principal Administrative Clerk Name Role Phone Gemma Arreola NP Primary Care Provider Ayush Ye MD Primary Care Provider Alina Santacruz MD Primary Care Provider [phone] Encounter Details Date Type Department Care Team (Late Contact Info) Description 10/14/2019 Lab Requisition [facility]ology [facility] Laboratory Medicine - [address] [address] Outr Resulting Lab, Provider Social History Tobacco Use Types Packs/Day Years Used Date Smoking Tobacco: Never Assessed Sex and Gender Information Value Date Recorded Sex Assigned at Not on file Gender Identity Female 08/17/2021 11:20 EDT Sexual Orientation Not on file documented as of this encounter Plan of Treatment Upcoming Encounters Date Type Department Care Team (Late Contact Info) Description 05/14/2024 15:10 [facility] Radiology CT - [address] [address] documented as of this encounter Procedures Procedure Name Priority Date/Time Associated Diagnosis Comments ZZCOVID-19 TEST [facility] LAB PCR Today 10/13/2019 19:20 EDT COVID-19 TESTING Routine 10/13/2019 19:2 0 EDT documented in this encounter Results * COVID-19 TEST [facility] LAB PCR (10/13/2019 19:20 EDT) Swab ENTIRE NASOPHARYNX / Unknown 10/13/2019 19:20 EDT 10/14/2019 15:16 EDT Provider Outr Resulting Lab MICROBIOLOGY - GENERAL ORDERABLES Performing Organization Address City/[facility] Co de Phone Number [facility] [address] [place] [address] * COVID-19 TESTING (10/13/2019 19:20 EDT) COVID-19 rt-PCR Result Negative Negative 10/14/2019 19:35 EDT [facility] Comment: This test has [...] history, and epidemiological information. Performed on the [employer] Fusion instrument Performing Lab [facility] Lab 10/14/2019 19:35 EDT [facility] Swab ENTIRE NASOPHARYNX / Unknown 10/13/2019 19:20 EDT 10/14/2019 15:16 EDT Provider Outr Resulting Lab MICROBIOLOGY - GENERAL ORDERABLES [facility] [address] [place] [address] documented in this encounter Visit Diagnoses Not on filedocumented in this encounter Additional Health Concerns Infection Onset Date Last Indicated Resolved Time Rule-Out C. difficile 10/30/2022 10/30/20222022 13:17 EDT documented as of this encounter Care Teams Principal Administrative Clerk Relationship Specialty Start Date End Date Gemma Arreola, RETAIL LOSS PREVENTION OFFICER [address] [facility] [address] [place] [phone] PCP - General 11/25/10 11/23/20 Ayush Ye MD [address] [place] [phone] PCP - General Family Medicine - Primary Care 11/24/20 08/16/21 Alina Santacruz MD [address] [phone] PCP - General 08/17/21 documented as of this encounter
--- OUTSIDE RECORDS SUMMARY | 2024-01-28 18:27 | XMS_ITS | Encounter Summary ---
Author Organization [facility] Address [address] [place] [address] Care Team Providers Care Clinic Lpn Name Role Phone Gemma Arreola MIXER OPERATOR TABLETS Primary Care Provider [phone] Encounter Details Date Type Department Care Team (Latest Contact Info) Description 04/18/2016 11:11 EST - 04/18/2016 23:59 [facility] Hospital Encounter [address] [address] Unknown, Provider, Discharge Disposition: Home or Self [...] or Self Prison documented in this encounter Plan of Treatment Upcoming Encounters Date Type Department Care Team (Late st Contact Info) Description 05/14/2024 15:10 [facility] Radiology [place] - [facility] [address] [place], [place] [phone] documented as of this encounter Visit Diagnoses Not on filedocumented in this encounter Care Teams Clinic Lpn Relationship Specialty Start Date End Date Gemma Arreola MIXER OPERATOR TABLETS [address] [place] [phone] PCP - General 11/25/10 11/23/20 documented as of this encounter
--- OUTSIDE RECORDS SUMMARY | 2024-01-28 18:27 | XMS_ITS | Encounter Summary ---
Author Organization [facility] Address [address] [place] [address] Care Team Providers Care Salesperson [employer] Name Role Phone Gemma Arreola NP Primary Care Provider [phone] Reason for Visit * (Routine) - Receiving Office to Obtain Authorization Specialty Diagnoses / Procedures Referred By Radha casey Referred To Contact Procedures MA BREAST OUTSIDE IMAGES Unknown, Provider, Referral ID Status Reason Start Date Expiration Date Visits Requested Visits Authorized [id number] Receiving Office to Obtain Authorization 01/01/2021 1 1 Encounter Details Date Type Department Care Team (Latest Contact Info) Description 05/26/[address] [facility] Secondary Reads [place] Discharge Disposition: Home or [...] 15:10 [facility] Radiology CT - Main [place] [address] [place], [place] [phone] documented as of this encounter Procedures Procedure [...] on filedocumented in this encounter Care Teams Salesperson [employer] Relationship Specialty Start Date End Date Gemma Arreola, CARMELO [address] [place] [phone] PCP - General 11/25/10 11/23/20 documented as of this encounter
== END 2024-01-28 18:21 | disposition home or self-care (01) ==
LOC: NCHCN 18:20
PROVIDERS: PCP Family Medicine; Visit Provider Family Medicine
DX: N76.0 Acute vaginitis (principal)
CPT/HCPCS: 87480; 87510; 87660